=== PATIENT | male | born 1965 | race Caucasian/White ===

== ENCOUNTER → 2018-08-16 | Outpatient (CLI) | payer OTHER | END | disposition home or self-care (01) | LOC: RADCTMAIN 07:38 | PROVIDERS: ATTEND Surgery | DX: I74.3 Embolism and thrombosis of arteries of the lower extremities (principal) | CPT/HCPCS: 82565; 84520 ==

== ENCOUNTER → 2018-09-03 | Outpatient (CLI) | payer OTHER ==
--- NOTE | 2018-09-03 19:02 | CT ---
EXAMINATION TYPE: CT angio abdomen pelvis DATE OF EXAM: 09/03/2018 COMPARISON: NONE HISTORY: 53-year-old male low back and leg pain. TECHNIQUE: Contiguous axial scanning of the abdomen and pelvis following administration of 100 ml Iso chalino-370 IV contrast. Coronal/sagittal MIP reconstructions performed. 3-D reconstructions generated o n a dedicated workstation. CT DLP: 1290 mGycm Automated exposure control for dose reduction was used. FINDINGS: Heart normal size without pericardial effusion. Lung bases clear without pleural effusion. Possible underlying fatty infiltration of the liver. No biliary ductal dilatation. There is mixing ar tifact within the portal venous system limiting its assessment. Gallbladder, adrenal glands, kidneys, spleen, and pancreas appear within normal limits. No dilated small bowel, free fluid, or free air. Small fatty umbilical hernia. No mesenteric or retroperitoneal lymphadenopathy. No significant stool burden. Mild sigmoid colonic diverticulosis. No pericolonic inflammatory change. Prominent distention of the urinary bladder. No abnormal fluid collection in the pelvis or pelvic lym phadenopathy. Retroaortic left renal vein. There is occlusion of the aorta just below the level of the renal arteries. Fusiform ectasia infrarenal abdominal aorta measuring up to 2.8 cm. 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 The vessels become hypoplastic at the common i liac bifurcation but then reconstitute at the level of large inferior epigastric collateral supply. There is moderate to severe focal atherosclerotic narrowing of the distal right WHITE MIXING OPERATOR prior to its bifu rcation. Bones: No osseous destructive process. IMPRESSION: 1. AORTOILIAC OCCLUSIVE DISEASE (LERICHE SYNDROME?). CORRELATE TO ETIOLOGY. ABDOMINAL AORTIC OCCLU NKECHI OCCURS JUST BELOW THE LEVEL OF THE RENAL ARTERY TAKEOFF AND THERE IS RECONSTITUTION DISTALLY VIA INFERIOR EPIGASTRIC ARTERY COLLATERALS. THE OCCLUDED ILIAC VESSELS BEYOND THE COMMON ILIAC BIFURCATI ONS ARE DIMINUTIVE/HYPOPLASTIC, POSSIBLY FROM A PRIOR INFLAMMATORY INSULT OR CONGENITAL BASIS. 2. 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 3. MODERATE TO SEVERE FOCAL ATHEROSCLEROTIC STENOSIS OF THE RECONSTITUTED DISTAL RIGHT WHITE MIXING OPERATOR PRIOR TO I TS BIFURCATION. 4. MILD PROXIMAL SIGMOID DIVERTICULOSIS.
== END | disposition home or self-care (01) ==
LOC: RADCTMAIN 12:06
PROVIDERS: ATTEND Surgery
DX: I74.09 Other arterial embolism and thrombosis of abdominal aorta (principal); I74.5 Embolism and thrombosis of iliac artery; I72.3 Aneurysm of iliac artery; I77.811 Abdominal aortic ectasia; I70.202 Unspecified atherosclerosis of native arteries of extremities, left leg; K57.30 Diverticulosis of large intestine without perforation or abscess without bleeding
CPT/HCPCS: 74174; Q9967

== ENCOUNTER → 2018-09-03 | Outpatient (CLI) | payer OTHER ==
[2018-09-03 08:51] VITALS: RESP 16
[2018-09-03] MEDS: SODIUM CHLORIDE 0.45% 1,000 ML IV SCH ×2 (08:53→13:04)
[2018-09-03 13:04] VITALS: BP 175/80; PULSE 75; TEMP 97.7
== END ==
LOC: PROCWHC3 08:24
PROVIDERS: ATTEND Surgery
DX: R94.4 Abnormal results of kidney function studies (principal)
CPT/HCPCS: 36415; 82565; 84520; 96360; 96361

== ENCOUNTER → 2018-09-10 | Outpatient (CLI) | payer OTHER ==
[~2018-09-10] MED LIST: DOBUTamine DRIP for NUC MED 500 MG in DEXTROSE/WATER 1 250ML.BAG IV ONE
--- NOTE | 2018-09-10 16:50 | P.STRESS ---
- Stress Test Note Stress Test Results/Findings: Exam Performed: dobutamine stress echo with con Exam Date: 09/10/18 Reason for Exam: CHEST PAIN Height: 5 ft 8 in Weight: 106.594 kg Protocol: DOBUTAMINE STRESS ECHO WITH CONTRAST Stage: 2 Duration of Exercise: 8:43 Resting Heart Rate: 61 Resting Blood Pressure: 130/67 Maximum Achieved Heart Rate: 143 Maximum Achieved Blood Pressure: 154/42 85% PMHR: 140 100% PMHR: 165 METS: N/A Technologist Comment: Stress Test Results/Findings: Baseline heart rate 61 beats a minute Baseline that pressure 130/67 mmHg Baseline ECG showed normal sinus rhythm with normal cardiac intervals Patient received dobutamine infusion per protocol No ECG evidence of ischemia Intermittent PVCs noted no nonsustained ventricular tachycardia PVCs a right bundle branch block like morphology Baseline 2-D echo images are suboptimal in the foot Definity contrast was used line there was a stepwise and augmentation of overall LV contractility without development of any wall motion abnormalities @Recovery regional global LV systolic function within normal Impression No ECG or echocardiographic evidence for ischemia Left-sided PVCs noted with dobutamine infusion
== END ==
LOC: RADNMMAIN 09:38
PROVIDERS: ATTEND Family Medicine
DX: R07.9 Chest pain, unspecified (principal); I49.3 Ventricular premature depolarization
CPT/HCPCS: C8930; J1250; Q9950; 93351

== ENCOUNTER → 2018-10-01 | Outpatient (CLI) | payer OTHER ==
[2018-10-01 10:25] LABS: Appearance,Urine Clear (Clear); Bilirubin,Urine Negative (Negative); Blood,Urine Negative (Negative); Color,Urine Yellow; Glucose,Urine (UA) Negative (Negative); Ketones,Urine Negative (Negative); Leukocyte Esterase,Urine Negative (Negative); Nitrite,Urine Negative (Negative); Protein,Urine Negative (Negative); Urobilinogen,Urine <2.0 mg/dL (<2.0)
[2018-10-01 10:35] LABS: Basophils # (A) 0.1 k/uL (0-0.2); Basophils % (A) 1 %; Eosinophils # (A) 0.3 k/uL (0-0.7); Eosinophils % (A) 4 %; HCT 44.1 % (39.0-53.0); HGB 14.3 gm/dL (13.0-17.5); Lymphocytes # (A) 1.7 k/uL (1.0-4.8); Lymphocytes % (A) 21 %; MCH 28.5 pg (25.0-35.0); MCHC 32.4 g/dL (31.0-37.0); Mean Platelet Volume 7.6; Monocytes # (A) 0.6 k/uL (0-1.0); Monocytes % (A) 8 %; Neutrophils # (A) 5.1 k/uL (1.3-7.7); Neutrophils % (A) 65 %; Platelet Count 299 k/uL (150-450); RBC 5.01 m/uL (4.30-5.90); RDW 14.2 % (11.5-15.5); WBC 7.9 k/uL (3.8-10.6)
[2018-10-01 10:40] LABS: Potassium 4.9 mmol/L (3.5-5.1)
== END | disposition home or self-care (01) ==
LOC: LABPAT 09:22
PROVIDERS: ATTEND Surgery
DX: Z01.818 Encounter for other preprocedural examination (principal); Z01.812 Encounter for preprocedural laboratory examination; I74.10 Embolism and thrombosis of unspecified parts of aorta
CPT/HCPCS: 36415; 80051; 81003; 82565; 84520; 85025; 93005

== ENCOUNTER 2018-10-07 09:41 | Inpatient (IN) | payer OTHER ==
[~2018-10-07 09:41] MED LIST changes: +CLINDAMYCIN 900 MG in DEXTROSE 5% IN WATER 50 ML IVPB ONE; +DEXAMETHASONE SOD PHOSPHATE 10 MG/ML 1 ML VIAL IV ONE; -DOBUTamine DRIP for NUC MED 500 MG in DEXTROSE/WATER 1 250ML.BAG IV ONE; +LIDOCAINE 1% 20 ML VIAL (10MG/ML) FOR IV START INTRADERMA PRN; +MIDAZOLAM 2 MG/2 ML VIAL IV PRN; +fentaNYL (PF) 50 MCG/ML 2 ML AMP IV PRN
[2018-10-07] MEDS: LACTATED RINGERS 1,000 ML IV SCH ×3 (10:16→21:24)
[2018-10-07] MEDS ORDERED: ONDANSETRON 4 MG/2 ML VIAL IVP ONE (10:35)
[2018-10-07] MEDS ORDERED: fentaNYL (PF) 50 MCG/ML 2 ML AMP IVP ONE (10:39)
[2018-10-07 10:41] LABS: INR 0.9 (<1.2); Partial Thromboplastin Time 23.4 sec (22.0-30.0)
[2018-10-07] MEDS ORDERED: ROPIVACAINE 250 MG, fentaNYL (PF) 625 MCG in SODIUM CHLORIDE 0.9% 188 ML EPIDURAL PRN (10:54)
[2018-10-07] MEDS ORDERED: NALOXONE 0.4 MG/ML 1 ML VIAL IV PRN (10:54)
[2018-10-07] MEDS ORDERED: GLYCOPYRROLATE 0.2 MG/ML 2 ML VIAL ONE (13:29)
[2018-10-07] MEDS ORDERED: HEPARIN SODIUM,PORCINE 10,000 UNIT/ML 1 ML VIAL ONE (13:29)
[2018-10-07] MEDS ORDERED: PROPOFOL 10 MG/ML 20 ML VIAL IV ONE (13:29)
[2018-10-07] MEDS ORDERED: ALBUMIN HUMAN 5% (12.5gm) 250 ML BOTTLE IVPB ONE (13:29)
[2018-10-07] MEDS ORDERED: fentaNYL (PF) 50 MCG/ML 2 ML AMP ONE (13:29)
[2018-10-07] MEDS ORDERED: SUCCINYLCHOLINE CHLORIDE 100 MG/5 ML SYR IV ONE (13:29)
[2018-10-07] MEDS ORDERED: NEOSTIGMINE 1 MG/ML 10 ML VIAL ONE (13:29)
[2018-10-07] MEDS ORDERED: HEPARIN SODIUM,PORCINE 5,000 UNIT/ML 1 ML VIAL ONE (13:29)
[2018-10-07] MEDS ORDERED: MIDAZOLAM 2 MG/2 ML VIAL ONE (13:29)
[2018-10-07] MEDS ORDERED: PHENYLEPHRINE-0.9% NACL SYG 1 MG/10 ML SYRINGE ONE (13:29)
[2018-10-07] MEDS ORDERED: VECURONIUM 10 MG VIAL IV ONE (13:29)
[2018-10-07] MEDS ORDERED: LACTATED RINGERS 1,000 ML BAG IV ONE (13:29)
[2018-10-07] MEDS ORDERED: PROTAMINE SULFATE 10 MG/ML 5 ML VIAL IV ONE (13:29)
[2018-10-07] MEDS ORDERED: GELATIN SPONGE,ABSORB (LARGE) 1 EACH SPONGE TOPICAL ONE (14:15)
[2018-10-07] MEDS ORDERED: THROMBIN (BOVINE) 5,000 UNIT VIAL TOPICAL ONE ×2 (14:15)
[2018-10-07] MEDS ORDERED: LACTATED RINGERS 1,000 ML IV ONE ×5 (14:45→15:06)
[2018-10-07] MEDS ORDERED: SODIUM CHLORIDE 0.9% 50 ML with CLINDAMYCIN 900 MG IV ONE ×2 (16:49)
--- NOTE | 2018-10-07 18:09 | P.OP ---
Date of Procedure: 10/07/18 Preoperative Diagnosis: Aortoiliac occlusive disease with resulting severely lifestyle limiting bilateral lower extremity claudication Postoperative Diagnosis: Same Procedure(s) Performed: Aortobifemoral bypass graft utilizing 16 mm x 8 mm bifurcated PTFE graft Aortic thromboendarterectomy Right common femoral thromboendarterectomy Implants: 16 mm x 8 mm bifurcated PTFE graft. Anesthesia: GETA Surgeon: Dhruv Guajardo Continuous Mining Operator #1: Tulio Multani Estimated Blood Loss (ml): 1,500 IV fluids (ml): 1,800 Urine output (ml): 300 Pathology: other (Atherosclerotic aortic plaque and debris) Condition: stable Disposition: ICU Indications for Procedure: Patient is a 53-year-old male who presented to the office complaining of severe lifestyle limiting lower extremity claudication. Physical examination revealed absent femoral pulses bilaterally. Arterial Doppler was performed which demonstrated findings consistent with aortoiliac occlusive disease. The patient did undergo a CT angiogram of the abdomen, pelvis and lower extremities and this demonstrated total occlusion of the lower aortic segment as well as both iliac arteries. Due to the patient's relatively young age was felt the patient would be well served by a aortobifemoral bypass grafting. Surgery options of axillobifemoral bypass grafting was also discussed. The patient was felt most appropriate for aortobifemoral bypass grafting. The patient wished to proceed. Operative Findings: Totally occluded renal aorta and both iliac arteries. Description of Procedure: Patient was brought the upper and placed in the supine position and administered general endotracheal anesthesia delivered by the primary anesthesiology. The patient had a epidural catheter placed in the preoperative phase. The patient received intravenously administered prophylactic antibiotics in the perioperative phase. Patient's abdomen bilateral inguinal and anterior thigh areas were sterilely prepped and draped in usual manner. A skin incision was made at the xiphoid level carried down to the level of pubis. Hemostasis was achieved using electrocautery. A generous layer of fatty tissue was transected. The fascia was identified and incised. Entry was then gained into the peritoneal cavity. A few adhesions of the omentum to the anterior abdominal wall were encountered and these were taken down. The small and large bowel were run in their entirety and no visual or palpable abnormality was identified. A nasogastric tube was placed by anesthesia and its position confirmed to be well within the stomach. Utilizing a Bookwalter retractor system the small and large bowel were packed from harm's way. Electrocautery was utilized to incise the posterior peritoneum overlying the distal aorta. The aorta itself was nonpulsatile. Dissection was then carried anteriorly along the aorta to a level just below the left renal artery where a pulse in the artery was identified. The artery was dissected free of investing tissues. Attention was then turned to the bilateral inguinal areas. On the right a skin incision was made along the inguinal crease carried down through the subcu change tissues. Hemostasis was achieved using electrocautery. Dissection was carried down the level of the femoral sheath which was incised. The common femoral artery as well as the origins of both profundus and superficial femoral arteries were identified and encircled Vesseloops. A similar procedures performed on the contralateral side. Both groin wounds were then packed with antibiotic-soaked gauze. Attention was turned to the aorta. The patient was systemically heparinized and ACT is were drawn and heparin was adjusted based on ACT readings. A 16 mm x 8 mm bifurcated PTFE graft was selected. The aorta was crossclamped and arteriotomy in the aorta was made. Amorphous plaque material was removed from the aorta which resulted in pulsatile flow to this level of the aorta. The aorta was then clamped. The PTFE graft was spatulated match arteriotomy and end-to-side anastomosis was created between the graft and the artery utilizing 3-0 Prolene suture. Once th is was performed in running fashion the graft was clamped and the anastomotic line was tested and this was found to be adequate. Each limb of the graft was then tunneled in the retroperitoneum to respective groin areas. On the left the Vesseloops were drawn closed surrounding the femoral vessels. Longitudinal arteriotomy was made in the common femoral extended down to the level of the bifurcation of the femoral into the superficial and deep femoral segments. Backbleeding from both the superficial femoral and profundus was identified and both arteries were flushed with heparinized saline solution. The graft was cut the appropriate length and spatulated to match arteriotomy and end-to-side anastomosis was created utilizing 5-0 Prolene suture placed in running fashion. Just prior to completion of the anastomotic line the limb was flushed and backbleeding was allowed to occur and no thrombus was retrieved in either case. The anastomotic line was then completed flow restored through the graft into the profundus followed by rastafari of flow into the superficial femoral arteries. The anastomotic line was hemostatic. Excellent pulse in both the profundus and superficial femoral arteries was identified. On the right side a similar procedure was performed however the common femoral artery was occluded and a common femoral thromboendarterectomy was performed. Both groin wounds were inspected for hemostasis. This was judged be adequate. Both groin wounds were closed in multiple layers with 3-0 Vicryl suture. Dermis was closed with 4-0 Vicryl placed in running intradermal fashion. Provina was applied to both wounds Attention was returned to the abdominal aorta. The anastomotic line was intact without evidence of leak. Surgical no was placed about the anastomotic line to help assure hemostasis. The posterior peritoneum was reapproximated with 0 Vicryl suture. Small and large bowel were returned to the normal anatomic positions. The anterior abdominal wall was closed with a #1 looped PDS placed in running fashion. Skin edges were reapproximated with skin fahad. Proper dressings were applied Patient tolerated procedure well awoke without apparent complication was transferred to recovery area satisfactory and stable condition. At the completion of the procedure both feet were pink and appeared to be well- perfused.
[2018-10-07] MEDS ORDERED: fentaNYL (PF) 50 MCG/ML 2 ML AMP INTRATHECA ONE (18:58)
[2018-10-07 21:09] LABS: Basophils % (A) 0 %; Eosinophils # (A) 0.1 k/uL (0-0.7); Eosinophils % (A) 1 %; HCT 35.7 % (39.0-53.0); HGB 11.8 gm/dL (13.0-17.5); Lymphocytes # (A) 0.6 k/uL (1.0-4.8); Lymphocytes % (A) 3 %; MCH 29.3 pg (25.0-35.0); MCHC 33.1 g/dL (31.0-37.0); MCV 88.5 fL (80.0-100.0); Mean Platelet Volume 7.8; Monocytes # (A) 0.9 k/uL (0-1.0); Monocytes % (A) 5 %; Neutrophils # (A) 15.4 k/uL (1.3-7.7); Neutrophils % (A) 90 %; Platelet Count 184 k/uL (150-450); RBC 4.03 m/uL (4.30-5.90); RDW 14.5 % (11.5-15.5); WBC 17.2 k/uL (3.8-10.6)
[2018-10-07 21:13] LABS: Glucose,Whole Blood 146 mg/dL (75-99)
[2018-10-07] MEDS ORDERED: SODIUM CHLORIDE 0.9% 500 ML 500 ML IV ONE (22:27)
[2018-10-07] MEDS: PHENYLEPHRINE 40 MG in SODIUM CHLORIDE 0.9% 250 ML IV SCH (22:48)
[2018-10-08] MEDS: CLINDAMYCIN 900 MG in DEXTROSE 5% IN WATER 50 ML IVPB SCH ×6 (00:04→16:08)
[2018-10-08] MEDS: PHENYLEPHRINE 40 MG in SODIUM CHLORIDE 0.9% 250 ML IV SCH ×2 (01:59→13:18)
[2018-10-08] MEDS: LACTATED RINGERS 1,000 ML IV SCH ×4 (05:46→23:59)
[2018-10-08 06:13] LABS: Basophils % (A) 0 %; Eosinophils # (A) 0.1 k/uL (0-0.7); Eosinophils % (A) 0 %; HCT 32.4 % (39.0-53.0); HGB 10.7 gm/dL (13.0-17.5); Lymphocytes # (A) 0.9 k/uL (1.0-4.8); Lymphocytes % (A) 7 %; MCH 29.1 pg (25.0-35.0); MCHC 33.2 g/dL (31.0-37.0); MCV 87.6 fL (80.0-100.0); Mean Platelet Volume 7.8; Monocytes % (A) 7 %; Neutrophils # (A) 10.9 k/uL (1.3-7.7); Neutrophils % (A) 84 %; Platelet Count 155 k/uL (150-450); RDW 14.7 % (11.5-15.5)
[2018-10-08 06:18] LABS: Magnesium 1.6 mg/dL (1.6-2.3); Phosphorus 3.4 mg/dL (2.5-4.5)
--- NOTE | 2018-10-08 08:10 | P.CNPUL ---
History of Present Illness Consult date: 10/08/18 Requesting physician: Dhruv Guajardo Reason for consult: other Chief complaint: Aortoiliac occlusive disease with severe claudication History of present illness: This is a 53-year-old white male patient, past medical history of nicotine dependence, patient carries 22-[id number]-doco smoking history, hypertension, hyperlipidemia, peripheral vascular disease, chronic kidney disease stage unknown, chronic back pain, osteoarthritis, who was diagnosed with severe aortoiliac occlusive disease about a year ago after experiencing severe claudication in lower extremities. On 10/07/2018 patient underwent aortobifemoral bypass grafting by Dr. Sequeira. Patient is seen in the intensive care unit on postoperative day one, he is currently on 2 L of oxygen the pulse ox of 97%, afebrile, hemodynamically stable. In the postoperative period patient apparently did experience some hypotension, and did receive a fluid bolus and infusion of Neosynephrine. Currently on lactated Ringer's at a rate of 150, epidural infusion of ropivacaine and fentanyl at a rate of 12 ML per hour. Antibiotic coverage in the form of clindamycin. Denies any shortness of breath, and some scattered wheezing, not normally on any inhalers or breathing treatments, no home oxygen. No diagnosis of chronic lung condition. Patient is complaining of right-sided numbness in his right hand, and right lower extremity. Apparently in the postoperative period he was having loss of sensation in his right lower extremity, but the right-sided hand numbness is new this morning. Lower extremity with posttibial pulses only, nonpalpable pedal pulses. Review of Systems All systems: negative Constitutional: Denies chills, Denies fever Eyes: denies blurred vision, denies pain Ears, nose, mouth and throat: Denies headache, Denies sore throat Cardiovascular: Denies chest pain, Denies shortness of breath Respiratory: Denies cough Gastrointestinal: Denies abdominal pain, Denies diarrhea, Denies nausea, Denies vomiting Musculoskeletal: Denies myalgias Integumentary: Denies pruritus, Denies rash Neurological: Reports numbness, Denies weakness Psychiatric: Denies anxiety, Denies depression Endocrine: Denies fatigue, Denies weight change Past Medical History Past Medical History: Hypertension, Osteoarthritis (OA), Thyroid Disorder, Vascular Disorder Additional Past Medical History / Comment(s): "no blood flow to legs", arthritis in lower back, edema of lower legs, occ swelling in fingers History of Any Multi-Drug Resistant Organisms: None Reported Past Surgical History: No Surgical Hx Reported Past Anesthesia/Blood Transfusion Reactions: No Reported Reaction Smoking Status: Current some day smoker - Past Family History Sister(s) Family Medical History: Cancer Medications and Allergies Home Medications Medication Instructions Recorded Confirmed Type Aspirin [Adult Low Dose Aspirin EC] 81 mg PO DAILY 09/03/18 10/07/18 History Fenofibrate [Lofibra] 160 mg PO DAILY 09/03/18 10/07/18 History Ibuprofen [Motrin] 800 mg PO QID 09/03/18 10/07/18 History Lisinopril [Zestril] 20 mg PO DAILY 09/03/18 10/07/18 History amLODIPine [Norvasc] 10 mg PO DAILY 09/03/18 10/07/18 History Ergocalciferol (Vitamin D2) 50,000 unit PO TH 09/25/18 10/07/18 History [Vitamin D2] Omeprazole [PriLOSEC] 20 mg PO AC-BID 09/25/18 10/07/18 History Allergies Allergy/AdvReac Type Severity Reaction Status Date / Time Penicillins Allergy Swelling Verified 10/07/18 20:03 Physical Exam Vitals: Vital Signs Temp Pulse Pulse Resp BP BP BP 10/08/18 07:00 80 26 H 122/69 10/08/18 06:00 99 19 117/66 10/08/18 05:00 75 17 129/59 10/08/18 04:30 79 16 10/08/18 04:00 97.8 F 92 20 130/64 10/08/18 03:30 86 18 130/64 10/08/18 03:00 80 16 109/53 10/08/18 02:30 78 18 125/62 10/08/18 02:00 73 18 116/67 10/08/18 01:30 81 18 114/40 10/08/18 01:00 82 16 116/65 10/08/18 00:30 77 15 125/53 10/08/18 00:00 99.6 F 71 18 105/56 10/07/18 23:30 65 15 94/48 10/07/18 23:00 64 12 98/55 10/07/18 22:30 66 13 99/52 10/07/18 22:00 70 13 99/52 10/07/18 21:30 68 14 98/56 10/07/18 21:00 63 16 101/57 10/07/18 20:30 97.8 F 65 20 90/50 10/07/18 20:02 68 10 L 10/07/18 19:33 69 16 90/53 91/55 10/07/18 19:15 71 16 97/54 102/57 10/07/18 19:00 69 16 92/55 99/58 10/07/18 18:30 76 16 112/62 119/62 10/07/18 18:15 97.1 F L 74 20 94/50 106/58 10/07/18 16:45 69 16 117/57 108/64 10/07/18 10:53 76 17 97/55 89/53 10/07/18 10:10 98.7 F 70 18 146/70 Pulse Ox 10/08/18 07:00 97 10/08/18 06:00 99 10/08/18 05:00 95 10/08/18 04:30 10/08/18 04:00 98 10/08/18 03:30 10/08/18 03:00 10/08/18 02:30 10/08/18 02:00 98 10/08/18 01:30 10/08/18 01:00 99 10/08/18 00:30 10/08/18 00:00 99 10/07/18 23:30 10/07/18 23:00 98 10/07/18 22:30 10/07/18 22:00 98 10/07/18 21:30 99 10/07/18 21:00 99 10/07/18 20:30 98 10/07/18 20:02 10/07/18 19:33 96 10/07/18 19:15 97 10/07/18 19:00 96 10/07/18 18:30 96 10/07/18 18:15 96 10/07/18 16:45 97 10/07/18 10:53 98 10/07/18 10:10 98 Intake and Output 10/07/18 10/08/18 10/08/18 22:59 06:59 14:59 Intake Total 1556 1750 150 Output Total 1825 735 40 Balance -269 1015 110 Intake: IV 1256 500 Sodium Chloride 0.9% 500 500 ml 500 ml @ 999 mls/hr IV .Q31M ONE Rx#:[id number] Intake, IV Titration 300 1250 150 Amount Clindamycin 900 mg In 50 Dextrose 5% in Water 50 ml @ 50 mls/hr IVPB Q8HR [facility] Rx#:[id number] Lactated Ringers 1,000 ml 300 1200 150 @ 150 mls/hr IV .Q6H40M [facility] Rx#:[id number] Output: Gastric Drainage 200 Urine 325 535 40 Estimated Blood Loss 1500 Other: Weight 115.2 kg ABP, PAP, CO, CI - Last 8 Hours Arterial Blood Pressure 98/94 GENERAL EXAM: Alert, pleasant, 53-year-old white male, on 2 L of oxygen, resting in bed, mild to moderate amount of discomfort at his surgical incision site comfortable in no apparent distress. Epidural catheter is present in the lower thoracic spine, insertion site is clean dry and intact, covered with occlusive dressing, ropivacaine and fentanyl infusing at a rate of 12 ML per hour HEAD: Normocephalic/atraumatic. EYES: Normal reaction of pupils, equal size. Conjunctiva pink, sclera white. NOSE: Clear with pink turbinates. THROAT: No erythema or exudates. NECK: No masses, no JVD, no thyroid enlargement, no adenopathy. CHEST: No chest wall deformity. Symmetrical expansion. LUNGS: Equal air entry with diffuse wheezes CVS: Regular rate and rhythm, normal S1 and S2, no gallops, no murmurs, no rubs ABDOMEN: Soft, nontender. No hepatosplenomegaly, normal bowel sounds, no guarding or rigidity. Midabdominal and Bilateral groin incisions, left groin incision with wound VAC in place EXTREMITIES: No clubbing, no edema, no cyanosis, post tibial pulses palpable, no palpable pedal pulses and upper and lower extremities. MUSCULOSKELETAL: Muscle strength and tone normal. SPINE: No scoliosis or deformity SKIN: No rashes CENTRAL NERVOUS SYSTEM: Alert and oriented -3. Sensation loss, numbness in the right lower extremity, foot, leg, and right hand tone is normal in all 4 extremities. PSYCHIATRIC: Alert and oriented -3. Appropriate affect. Intact judgment and insight. Results - Laboratory Findings CBC and BMP: 10/08/18 05:36 PT/INR, D-dimer PT 10.0 sec (9.0-12.0) 10/07/18 10:15 INR 0.9 (<1.2) 10/07/18 10:15 Abnormal lab findings: Abnormal Labs 10/01/18 10/07/18 10/07/18 09:45 20:45 21:10 WBC 17.2 H RBC 4.03 L Hgb 11.8 L Hct 35.7 L Neutrophils # 15.4 H Lymphocytes # 0.6 L POC Glucose (mg/dL) 146 H Crossmatch See Detail 10/08/18 05:36 WBC 13.0 H RBC 3.70 L Hgb 10.7 L Hct 32.4 L Neutrophils # 10.9 H Lymphocytes # 0.9 L POC Glucose (mg/dL) Crossmatch - Diagnostic Findings Chest x-ray: report reviewed Assessment and Plan Plan: Assessment: #1. Peripheral vascular disease, aortoiliac occlusive disease with severe claudication, status post aortobifemoral bypass grafting, postop day 1 #2. Postoperative hypotension, an expected outcome of aortobyfemoral bypass #3. Sensory loss, numbness in the right lower extremity, and right arm #4. Hypertension #5. Hyperlipidemia #6. Chronic kidney disease, stage unknown #7. Back pain #8. Osteoarthritis #9. Nicotine dependence, currently in remission, patient quit smoking 3 weeks ago, is [id number] smoking history Plan: Provide incentive spirometer, encourage breathing and coughing, we'll start breathing treatments. We'll notify the vascular surgery and anesthesiology about the numbness in the right hand and right lower extremity. Hemodynamically patient is stable, off vasopressor support, no fever or chills. No complains of shortness of breath, no chest pain. Maintain pain control. DVT prophylaxis per vascular surgery. Continue to follow. I performed a history & physical examination of the patient and discussed their management with my nurse practitioner, Shae Christiansen. I reviewed the nurse practitioner's note and agree with the documented findings and plan of care. Lung sounds are positive for diffuse wheezes throughout the lung hickman. The findings and the impression was discussed with the patient. I attest to the documentation by the nurse practitioner. Time with Patient: Greater than 30
[2018-10-08] MEDS ORDERED: ROPIVACAINE 250 MG, HYDROMORPHONE (PF) 5 MG in SODIUM CHLORIDE 0.9% 200 ML EPIDURAL PRN (10:44)
[2018-10-08] MEDS ORDERED: NALOXONE 0.4 MG/ML 1 ML VIAL IV PRN (10:44)
--- NOTE | 2018-10-08 10:57 | P.PN ---
Progress Note - Text Progress Note Date: 10/08/18 Post op day 1, cath day 2 from aorto-bi fem. having numbness and pain in the right leg, no pain in the left leg or abdomen. He says the right leg is numb and causing pain. He has PT pulses on the right, and PT/DP on the left. epidural running at 12cc hour, solution was changed to dilaudid today and will be hung soon. we will keep an eye on the progress. He does not have any changes in mental status, no weakness, or bowel incontinence. site is clean and dry.
[2018-10-08] MEDS: MAGNESIUM SULFATE-D5W PMX 1 GM in DEXTROSE/WATER 1 100ML.BAG IVPB SCH ×2 (11:00→12:27)
[2018-10-08 11:15] LABS: Calcium 8.3 mg/dL (8.4-10.2); Potassium 4.7 mmol/L (3.5-5.1)
[2018-10-08] MEDS: LISINOPRIL 20 MG TAB PO SCH (12:28)
[2018-10-08] MEDS: ASPIRIN 81 MG PO SCH (12:28)
[2018-10-08] MEDS: FENOFIBRATE 160 MG TAB PO SCH (12:28)
[2018-10-08] MEDS: amLODIPine 10 MG TAB PO SCH (12:28)
[2018-10-08] MEDS: PANTOPRAZOLE 40 MG TABLET PO SCH ×2 (12:28→18:08)
[2018-10-08] MEDS: IPRATROPIUM-ALBUTEROL 3 ML NEB INHALATION SCH ×3 (13:18→20:04)
[2018-10-08 17:28] LABS: Glucose,Whole Blood 107 mg/dL (75-99)
--- NOTE | 2018-10-08 19:48 | PN ---
PROGRESS NOTE DATE OF SERVICE: 10/08/2018 CHIEF COMPLAINT: Postoperative aortofemoral bypass. HISTORY OF PRESENT ILLNESS: This gentleman has been having some discomfort in the right calf. He has had no abdominal pain, nausea, vomiting, chest pain, etc. PHYSICAL EXAMINATION: Chest is clear. Cardiac exam is normal. Extremities seem to be well perfused. IMPRESSION: Status post aortofemoral bypass. PLAN: Continue to follow. MMODL / IJN: [id number] /
--- NOTE | 2018-10-08 22:56 | CONS ---
CONSULTATION CHIEF COMPLAINT: Aortic occlusive disease. HISTORY OF PRESENT ILLNESS: This gentleman was brought in for an elective aortofemoral bypass. He has profound ischemia in the lower extremities with claudication. REVIEW OF SYSTEMS: He has had no neurologic problems, shortness of breath, chest pain, orthopnea, PND, abdominal pain, nausea, vomiting, diarrhea, melena, hematochezia, renal failure, etc. Past medical history, family history, and personal and social histories can all be found in detail in his admitting summary. PHYSICAL EXAMINATION: Blood pressure is 142/85 with a pulse of 80, respirations of 35. He is afebrile. In general he appeared to be in no acute distress. Skin color is normal. Skin is warm and dry. Head, ears, eyes, nose, mouth and throat are normal. Neck veins are not distended. Carotids are normal. Chest is clear. Cardiac exam demonstrates sinus rhythm and no murmurs or extra sounds. The abdomen is slightly distended, with no masses. Bowel sounds are absent. Extremities are unremarkable, but he is experiencing quite a bit of pain in the lower leg, but perfusion seems to be adequate and symmetrical bilaterally. Neurologically he is intact. IMPRESSION: 1. Improved vascular occlusive disease secondary to aortic occlusive disease. 2. Atherosclerotic cardiovascular disease. 3. Chronic obstructive pulmonary disease. RECOMMENDATIONS: None at this time. Continue to follow with Vascular Surgery. MMODL / IJN: [id number] /
[2018-10-08] MEDS ORDERED: SODIUM CHLORIDE 0.9% 1,000 ML IV ONE (23:56)
[2018-10-08] MEDS ORDERED: HYDROmorphone 1 MG/ML 1 ML SYRINGE IVP PRN (23:58)
[2018-10-09] MEDS ORDERED: FUROSEMIDE 10 MG/ML 2 ML VIAL IV ONE (01:53)
[2018-10-09] MEDS: PHENYLEPHRINE 40 MG in SODIUM CHLORIDE 0.9% 250 ML IV SCH ×2 (02:03→16:28)
[2018-10-09] MEDS: LACTATED RINGERS 1,000 ML IV SCH ×2 (05:17→09:32)
[2018-10-09 05:26] LABS: Basophils % (A) 0 %; Eosinophils # (A) 0.1 k/uL (0-0.7); Eosinophils % (A) 1 %; HCT 30.4 % (39.0-53.0); HGB 10.1 gm/dL (13.0-17.5); Lymphocytes % (A) 7 %; MCH 29.8 pg (25.0-35.0); MCHC 33.1 g/dL (31.0-37.0); Mean Platelet Volume 7.9; Monocytes # (A) 0.9 k/uL (0-1.0); Monocytes % (A) 6 %; Neutrophils # (A) 11.8 k/uL (1.3-7.7); Neutrophils % (A) 84 %; Platelet Count 150 k/uL (150-450); RBC 3.38 m/uL (4.30-5.90); RDW 14.6 % (11.5-15.5)
[2018-10-09 05:38] LABS: Calcium 8.1 mg/dL (8.4-10.2); Potassium 5.2 mmol/L (3.5-5.1)
[2018-10-09] MEDS: IPRATROPIUM-ALBUTEROL 3 ML NEB INHALATION SCH ×4 (07:36→19:44)
--- NOTE | 2018-10-09 07:40 | XR ---
EXAMINATION TYPE: XR chest 1V portable DATE OF EXAM: 10/09/2018 COMPARISON: NONE HISTORY: Shortness of breath and wheezing TECHNIQUE: Single frontal view of the chest is obtained. FINDINGS: Gastric tube is present, distal tip not included on the exam but tube is coursing toward t he left upper quadrant in appropriate position. No pneumothorax or pleural effusion. Subsegmental ate lectatic changes suspected at the lung bases. Interstitium may be increased. Heart may be enlarged al though patient is rotated. The aorta is dense. There are overlying cardiac leads. IMPRESSION: Rotated expiratory exam. Subsegmental basilar atelectasis. Question some prominence of i nterstitium, follow-up PA and lateral chest x-ray suggested when patient is stable.
--- NOTE | 2018-10-09 07:43 | P.PN ---
Progress Note - Text Progress Note Date: 10/09/18 Anesthesia Epidural Rounds Post op day 2, s/p aorto bi-fem catheter day 3 evaluated at the bedside patient reports pain improved from yesterday, but limited motility in the right leg/foot compared with the left site of epidural looks clean dry and intact ropiviciane/dilaudid solution at a rate of 10, VAS 5 will plan on removing epidural in the AM
--- NOTE | 2018-10-09 08:03 | P.PN ---
Subjective Progress Note Date: 10/09/18 Principal diagnosis: Peripheral vascular disease, aortoiliac occlusive disease with severe claudication, status post aortobifemoral bypass grafting, postop day 2 This is a 53-year-old white male patient, past medical history of nicotine dependence, patient carries [id number] smoking history, hypertension, hyperlipidemia, peripheral vascular disease, chronic kidney disease stage unknown, chronic back pain, osteoarthritis, who was diagnosed with severe aortoiliac occlusive disease about a year ago after experiencing severe claudication in lower extremities. On 10/07/2018 patient underwent aortobifemoral bypass grafting by Dr. Sequeira. Patient is seen in the intensive care unit on postoperative day one, he is currently on 2 L of oxygen the pulse ox of 97%, afebrile, hemodynamically stable. In the postoperative period patient apparently did experience some hypotension, and did receive a fluid bolus and infusion of Neosynephrine. Currently on lactated Ringer's at a rate of 150, epidural infusion of ropivacaine and fentanyl at a rate of 12 ML per hour. Antibiotic coverage in the form of clindamycin. Denies any shortness of breath, and some scattered wheezing, not normally on any inhalers or breathing treatments, no home oxygen. No diagnosis of chronic lung condition. Patient is complaining of right-sided numbness in his right hand, and right lower extremity. Apparently in the postoperative period he was having loss of sensation in his right lower extremity, but the right-sided hand numbness is new this morning. Lower extremity with posttibial pulses only, nonpalpable pedal pulses. On 10/09/2018 patient seen in follow-up in intensive care unit, he is awake and alert, oriented 3, 10 L of oxygen per high flow nasal cannula, hemodynamically stable, afebrile, lung sounds positive for coarse rhonchi, and scattered wheezes, patient is working on his incentive spirometer, achieving 1250 on it today. Patient productive cough, patient is on nebulized bronchodilators. Today's postop day 2 status post aortobifemoral bypass grafting. Today's chest x-ray has been reviewed, showing subsegmental basilar atelectasis, and possible prominence of interstitium. Patient remains nothing by mouth except for ice chips, NG tube is in place, there has been 750 mL of gastric output in the last 24 hours. Webster catheter is in place, patient nonoliguric. Today's labs have been reviewed. Maintenance IV fluids are LR at 150 ML per hour, patient remains on epidural, still complaining of some numbness and burning in his right lower extremity, Doppler right pedal pulses, palpable posttibial, palpable left pedal and posttibial. Objective - Vital Signs Vital signs: Vital Signs Temp 99.4 F 10/09/18 04:00 Pulse 94 10/09/18 07:51 Resp 18 10/09/18 07:01 BP 105/65 10/09/18 07:01 Pulse Ox 94 L 10/09/18 07:01 Intake & Output 10/08/18 10/09/18 10/09/18 18:59 06:59 18:59 Intake Total 2338 2810 150 Output Total 1570 870 60 Balance 768 1940 90 Weight 115.2 kg 112.9 kg Intake: IV 2650 150 LR 450 Lactated Ringers 1,000 ml 1200 150 @ 150 mls/hr IV .Q6H40M [facility] Rx#:[id number] Sodium Chloride 0.9% 500 1000 ml 500 ml @ 999 mls/hr IV .Q31M [facility] Rx#:[id number] Intake, IV Titration 2218 160 Amount Clindamycin 900 mg In 100 Dextrose 5% in Water 50 ml @ 50 mls/hr IVPB Q8HR [facility] Rx#:[id number] Lactated Ringers 1,000 ml 1800 150 @ 150 mls/hr IV .Q6H40M [facility] Rx#:[id number] Magnesium Sulfate-D5w Pmx 200 1 gm In Dextrose/Water 1 100ml.bag @ 100 mls/hr IVPB Q1H [facility] Rx#: [id number] Ropivacaine 250 mg 70 10 Hydromorphone (Pf) 5 mg In Sodium Chloride 0.9% 200 ml @ Per Protocol EPIDURAL .Q0M [facility] Rx#: [id number] Ropivacaine 250 mg 48 fentaNYL (PF) 625 mcg In Sodium Chloride 0.9% 188 ml @ Per Protocol EPIDURAL .Q0M [facility] Rx#: [id number] Oral 120 Output: Gastric Drainage 450 300 Drainage 0 0 Left Groin 0 0 Urine 1120 570 60 Other: Voiding Method Indwelling Catheter Indwelling Catheter ABP, PAP, CO, CI - Last Documented Arterial Blood Pressure 98/94 - Exam GENERAL EXAM: Alert, pleasant, 53-year-old white male, on 2 L of oxygen, resting in bed, mild to moderate amount of discomfort at his surgical incision site comfortable in no apparent distress. Epidural catheter is present in the lower thoracic spine, insertion site is clean dry and intact, covered with occlusive dressing, ropivacaine and fentanyl infusing at a rate of 12 ML per hour HEAD: Normocephalic/atraumatic. EYES: Normal reaction of pupils, equal size. Conjunctiva pink, sclera white. NOSE: Clear with pink turbinates. THROAT: No erythema or exudates. NECK: No masses, no JVD, no thyroid enlargement, no adenopathy. CHEST: No chest wall deformity. Symmetrical expansion. LUNGS: Equal air entry with diffuse wheezes CVS: Regular rate and rhythm, normal S1 and S2, no gallops, no murmurs, no rubs ABDOMEN: Soft, nontender. No hepatosplenomegaly, normal bowel sounds, no guarding or rigidity. Midabdominal and Bilateral groin incisions, left groin incision with wound VAC in place EXTREMITIES: No clubbing, no edema, no cyanosis, post tibial pulses palpable, no palpable pedal pulses and upper and lower extremities. MUSCULOSKELETAL: Muscle strength and tone normal. SPINE: No scoliosis or deformity SKIN: No rashes CENTRAL NERVOUS SYSTEM: Alert and oriented -3. Sensation loss, numbness in the right lower extremity, foot, leg, and right hand tone is normal in all 4 extremities. PSYCHIATRIC: Alert and oriented -3. Appropriate affect. Intact judgment and insight. - Labs CBC & Chem 7: 10/09/18 04:58 10/09/18 04:58 Labs: Abnormal Lab Results - Last 24 Hours (Table) 10/08/18 10/08/18 10/09/18 Range/Units 05:36 17:24 04:58 WBC 14.0 H (3.8-10.6) k/uL RBC 3.38 L (4.30-5.90) m/uL Hgb 10.1 L (13.0-17.5) gm/dL Hct 30.4 L (39.0-53.0) % Neutrophils # 11.8 H (1.3-7.7) k/uL Sodium (137-145) mmol/L Potassium (3.5-5.1) mmol/L Chloride 110 H (98-107) mmol/L BUN 30 H (9-20) mg/dL Creatinine 1.97 H (0.66-1.25) mg/dL Glucose 113 H (74-99) mg/dL POC Glucose (mg/dL) 107 H (75-99) mg/dL Calcium 8.3 L (8.4-10.2) mg/dL 10/09/18 Range/Units 04:58 WBC (3.8-10.6) k/uL RBC (4.30-5.90) m/uL Hgb (13.0-17.5) gm/dL Hct (39.0-53.0) % Neutrophils # (1.3-7.7) k/uL Sodium 136 L (137-145) mmol/L Potassium 5.2 H (3.5-5.1) mmol/L Chloride (98-107) mmol/L BUN 26 H (9-20) mg/dL Creatinine 1.86 H (0.66-1.25) mg/dL Glucose (74-99) mg/dL POC Glucose (mg/dL) (75-99) mg/dL Calcium 8.1 L (8.4-10.2) mg/dL Assessment and Plan Plan: Assessment: #1. Peripheral vascular disease, aortoiliac occlusive disease with severe claudication, status post aortobifemoral bypass grafting, postop day 2 #2. Postoperative hypotension, an expected outcome of aortobyfemoral bypass #3. Sensory loss, numbness in the right lower extremity, and right arm. Right hand numbness has resolved. Still complaining of some numbness and burning in the right lower extremity. #4. Hypertension #5. Hyperlipidemia #6. Chronic kidney disease, stage unknown #7. Back pain #8. Osteoarthritis #9. Nicotine dependence, currently in remission, patient quit smoking 3 weeks ago, is [id number]-[id number] smoking history Plan: Continue with nebulized bronchodilators, deep breathing and coughing, incentive spirometry use, today's chest x-ray has been reviewed, showing some prominence of interstitium, patient will be given a dose of IV Lasix. DVT prophylaxis per vascular surgery. Continue pain control, will follow. I performed a history & physical examination of the patient and discussed their management with my nurse practitioner, Shae Christiansen. I reviewed the nurse practitioner's note and agree with the documented findings and plan of care. Lung sounds are positive for diffuse wheezes throughout the lung hickman. The findings and the impression was discussed with the patient. I attest to the documentation by the nurse practitioner. Time with Patient: Less than 30
[2018-10-09] MEDS ORDERED: FUROSEMIDE 10 MG/ML 4 ML VIAL IV STA (08:37)
[2018-10-09] MEDS: FENOFIBRATE 160 MG TAB PO SCH (09:19)
[2018-10-09] MEDS: LISINOPRIL 20 MG TAB PO SCH (09:19)
[2018-10-09] MEDS: amLODIPine 10 MG TAB PO SCH (09:19)
[2018-10-09] MEDS: ASPIRIN 81 MG PO SCH (09:19)
[2018-10-09] MEDS: PANTOPRAZOLE 40 MG/10 ML VIAL IVP SCH ×2 (09:31→20:21)
[2018-10-09] MEDS: HYDROmorphone 1 MG/ML 1 ML SYRINGE IVP PRN ×4 (12:29→22:28)
[2018-10-09] MEDS: HEPARIN SODIUM,PORCINE 5,000 UNIT/ML 1 ML VIAL SQ SCH ×2 (12:36→16:35)
--- NOTE | 2018-10-09 14:20 | P.PN ---
Progress Note - Text Progress Note Date: 10/08/18 Patient seen and examined. Complaining of pain at right leg pain and numbness. States pain extending from the hip to the foot. No nausea, or vomiting. NGT intact, minimal output. Vitals are stable. Palpable PT pulses bilaterally, warm extremities. A/P: 1. s/p Aortobifemoral bypass 2. RLE parasthesia secondary to epidural - remove epidural tomorrow morning - increase activity.
--- NOTE | 2018-10-09 18:39 | PN ---
PROGRESS NOTE CHIEF COMPLAINT: Status post aortofemoral bypass. HISTORY OF PRESENT ILLNESS: This gentleman is awake and doing fairly well but still complaining of quite a bit of pain in the right lower leg, but it is slightly better. PHYSICAL EXAM: Vital signs are normal. Chest is clear. Cardiac exam is normal. Perfusion is excellent in both lower extremities. IMPRESSION: Status post aortofemoral bypass. PLAN: Continue to follow with surgery, the patient is improving. MMODL / IJN: [id number] /
[2018-10-10] MEDS: HYDROmorphone 1 MG/ML 1 ML SYRINGE IVP PRN ×12 (00:36→23:59)
[2018-10-10] MEDS: LACTATED RINGERS 1,000 ML IV SCH ×2 (00:37→15:54)
[2018-10-10] MEDS: HEPARIN SODIUM,PORCINE 5,000 UNIT/ML 1 ML VIAL SQ SCH ×4 (00:37→22:17)
[2018-10-10] MEDS: PHENYLEPHRINE 40 MG in SODIUM CHLORIDE 0.9% 250 ML IV SCH ×2 (00:38→10:47)
[2018-10-10] MEDS: PANTOPRAZOLE 40 MG TABLET PO SCH (04:28)
[2018-10-10 05:19] LABS: Basophils % (A) 0 %; Eosinophils # (A) 0.2 k/uL (0-0.7); Eosinophils % (A) 1 %; HCT 30.7 % (39.0-53.0); HGB 10.1 gm/dL (13.0-17.5); Lymphocytes # (A) 1.1 k/uL (1.0-4.8); Lymphocytes % (A) 7 %; MCH 29.2 pg (25.0-35.0); MCHC 32.9 g/dL (31.0-37.0); MCV 88.5 fL (80.0-100.0); Monocytes % (A) 6 %; Neutrophils # (A) 13.4 k/uL (1.3-7.7); Neutrophils % (A) 84 %; Platelet Count 181 k/uL (150-450); RBC 3.47 m/uL (4.30-5.90); RDW 14.6 % (11.5-15.5)
[2018-10-10 05:29] LABS: Albumin 3.4 g/dL (3.5-5.0); Calcium 8.7 mg/dL (8.4-10.2); Potassium 4.6 mmol/L (3.5-5.1); Total Bilirubin 0.8 mg/dL (0.2-1.3); Total Protein 5.9 g/dL (6.3-8.2)
[2018-10-10] MEDS: PANTOPRAZOLE 40 MG/10 ML VIAL IVP SCH ×2 (08:19→21:01)
--- NOTE | 2018-10-10 08:38 | XR ---
EXAMINATION TYPE: XR chest 1V portable DATE OF EXAM: 10/10/2018 COMPARISON: 10/09/2018 HISTORY: Shortness of breath TECHNIQUE: Single frontal view of the chest is obtained. FINDINGS: NG tube appears stable. There is bilateral consolidation and pleural thickening or tiny ef fusion. No pneumothorax. Heart size stable. Mildly prominent interstitium. Suspect underlying COPD. IMPRESSION: Bibasilar atelectasis versus infiltrate. Correlate for mild interstitial lung disease or venous congestion.
[2018-10-10] MEDS: IPRATROPIUM-ALBUTEROL 3 ML NEB INHALATION SCH ×5 (09:09→20:14)
--- NOTE | 2018-10-10 10:23 | PN ---
PROGRESS NOTE This is a patient who is postop day #3, status post aortobifem bypass grafting. The patient is currently resting comfortably here in the ICU. He is still requiring relatively high concentration of oxygen. He is getting 8 L high-flow. His lactated Ringer's IV is running at 75 mL an hour. He continues to complain of right leg burning. Dr. Multani is aware. Chest x-ray shows some very minimal fluid overload. All-in-all doing reasonably well. The patient did complain of some abdominal pain last night according to the nurse and also the right leg burning. He does have a history of hypertension, hyperlipidemia, and chronic kidney disease. He also suffers from chronic back pain. He has got a stable respiratory status and hemodynamic status at this time. Current vital signs are reviewed. Temperature is 98.2, heart rate 80, respiratory rate 13, blood pressure 113/66 mean 81 and saturations are 96% on 8 L high flow. Appears in no acute distress. HEENT: Examination is grossly unremarkable. Nasal O2 noted. Mucous membranes are moist. NECK: Supple. Full range of motion. No adenopathy, thyromegaly or neck vein distention. CARDIOVASCULAR: Examination reveals regular rhythm and rate. Heart rate about 80 beats per minute. S1, S2 normal. There is no S3, S4, or murmur. LUNGS: Reveal mostly clear breath sounds. No wheezes, rhonchi, or crackles. Breath sounds are equal bilaterally. ABDOMEN: Soft. Bowel sounds are heard. EXTREMITIES: Intact. No cyanosis, clubbing, or edema. Pulses are intact. SKIN: Without rash. NEUROLOGIC: Examination is brief but nonfocal. Microbiologic studies are negative or pending. White count 16, hemoglobin 10.1, hematocrit 30.7, platelet count normal. Sodium, potassium, chloride, CO2 all normal, anion gap normal. BUN and creatinine were 23 and 1.70, improved from 30 and 1.97 two days ago. AST 267, ALT 79, albumin 3.4. Chest x- ray is reviewed as mentioned above. Medications are reviewed. They all appear relatively appropriate. ASSESSMENT: 1. Postoperative day #3, status post aortobifemoral bypass in a patient with severe peripheral vascular disease and aortoiliac occlusive disease with severe claudication. 2. Postoperative hypotension, resolved. 3. Burning sensation right leg, chronic, of unclear etiology. 4. Benign essential hypertension. 5. Hyperlipidemia. 6. Chronic kidney disease. 7. Back pain. 8. Osteoarthritis. 9. Probable chronic obstructive pulmonary disease from previous heavy tobacco use. PLAN: The patient continues to progress. Respiratory status is improving. Chest x-ray looks much improved. His hemodynamic status is stable. He still complains of right leg burning and some abdominal discomfort. He needs to work on deep breathing, coughing, clearing of secretions and hourly use of incentive spirometer. Medications are reviewed. Everything is appropriate. Will continue to follow. MMODL / IJN: [id number] /
[2018-10-10] MEDS: IPRATROPIUM-ALBUTEROL 3 ML NEB INHALATION PRN (12:51)
[2018-10-10] MEDS: GABAPENTIN 300 MG CAP PO SCH ×3 (14:14→21:01)
[2018-10-10] MEDS: ASPIRIN 81 MG PO SCH (14:14)
[2018-10-10] MEDS: FENOFIBRATE 160 MG TAB PO SCH (14:15)
[2018-10-10] MEDS: amLODIPine 10 MG TAB PO SCH (14:15)
[2018-10-10] MEDS: LISINOPRIL 20 MG TAB PO SCH (15:49)
--- NOTE | 2018-10-10 16:21 | P.PN ---
Progress Note - Text Progress Note Date: 10/10/18 Patient is evaluated 3 days status post aortobifemoral bypass grafting. His biggest complaint is that of hyperesthesia of the right calf area. He indicates that his feet feel well. He was able to get to a chair yesterday. He has not passed any significant flatus or stool at all. Patient is awake alert oriented and in no significant distress. A nasogastric tube was significantly pulled back and this was repositioned after discussing with the patient the possibility of pulling the tube completely and the possible need for reinsertion at a later time should he become nauseated/experienced emesis. Patient wished to have the nasogastric tube readvanced. Abdomen is distended however soft. Few bowel sounds are noted. Legs are non- edematous. Toes are freely movable and nontender. Webster catheter is draining clear urine. Labs are removed and are stable. Plan Will start Neurontin 300 mg 3 times a day to see if this will help the hyperesthesia of the right lower extremity. We will remove Webster catheter. Trial clear liquids.
--- NOTE | 2018-10-10 19:59 | PN ---
PROGRESS NOTE CHIEF COMPLAINT: Status post aortofemoral bypass. HISTORY OF PRESENT ILLNESS: This gentleman is still experiencing quite a bit of discomfort in the right lower leg and particularly in the calf. This is probably related to his anesthesia. He also still has the NG tube in place and he is not passing flatus or stool. PHYSICAL EXAM: Vital signs are normal. Chest is clear. The cardiac exam is normal. The abdominal incision is dry. Extremities are normal except for some tenderness in the right calf, but it is more lateral than posterior. Homans is negative. IMPRESSION: 1. Status post aortofemoral bypass. 2. Pain in the right lateral lower leg. PLAN: Continue to follow. MMODL / IJN: [id number] /
[2018-10-11] MEDS: HYDROmorphone 1 MG/ML 1 ML SYRINGE IVP PRN ×3 (03:22→10:30)
[2018-10-11] MEDS: LACTATED RINGERS 1,000 ML IV SCH ×2 (06:23→20:44)
--- NOTE | 2018-10-11 07:29 | CDI ---
Documentation Clarification Form Date: 10/11/2018 7:23 AM From: Bobbi Cameron RN CCDS Admit Date: 10/07/2018 9:41:00 AM Patient Name: Ralph Agarwal Visit Number: [id number] Discharge Date: ATTENTION: The Clinical Documentation Specialists (CDI) and [facility] Coding Staff appreciate your assistance in clarifying documentation. Please respond to the clarification below the line at the bottom and electronically sign. The CDI & [facility] Coding staff will review the response and follow-up if needed. Please note: Queries are made part of the Legal Health Record. If you have any questions, please contact the author of this message via ITS. Dr. Denzel Tolbert The patient presented for an elective Aortobifemoral bypass and currently on 8L high flow oxygen. History/Risk Factors: 53 year old male with a medical history of nicotine dependence 30 year pack smoking history, HTN, Hyperlipidemia, PVD, CKD unknown stage; Severe Aortoiliac occlusive disease. Clinical Indicators: Your 10/10/2018 PN probable chronic obstructive pulmonary disease from previous heavy tobacco use Lungs: Reveal mostly clear breath sounds. No wheezes, rhonchi or crackles. Breath sounds are equal bilaterally. Lab findings: Carbon dioxide 26 CXR: 10/10/2018 Bibasilar atelectasis vs infiltrate Vital Signs: 113/66 98 98.0 18 93% High Flow Oxygen 8 L Other Clinical Indicators: Treatment: 8L High Flow Oxygen, Deep breathing, Coughing, clearing of secretions and hourly use of incentive spirometer. Albuterol tx; In your professional opinion, can you please clarify the diagnosis with treatment of High Flow Oxygen? * Acute Respiratory Failure due to * Acute Respiratory Insufficiency due to _COPD * Other, please specify * Unable to determine (Last Revision: August 2017) MTDD
[2018-10-11] MEDS: IPRATROPIUM-ALBUTEROL 3 ML NEB INHALATION SCH ×4 (07:56→20:08)
--- NOTE | 2018-10-11 08:56 | P.PN ---
Subjective Progress Note Date: 10/11/18 Principal diagnosis: Peripheral vascular disease, aortoiliac occlusive disease with severe claudication, status post aortobifemoral bypass grafting, postop day 2 This is a 53-year-old white male patient, past medical history of nicotine dependence, patient carries 40-xrmp-hjre smoking history, hypertension, hyperlipidemia, peripheral vascular disease, chronic kidney disease stage unknown, chronic back pain, osteoarthritis, who was diagnosed with severe aortoiliac occlusive disease about a year ago after experiencing severe claudication in lower extremities. On 10/07/2018 patient underwent aortobifemoral bypass grafting by Dr. Sequeira. Patient is seen in the intensive care unit on postoperative day one, he is currently on 2 L of oxygen the pulse ox of 97%, afebrile, hemodynamically stable. In the postoperative period patient apparently did experience some hypotension, and did receive a fluid bolus and infusion of Neosynephrine. Currently on lactated Ringer's at a rate of 150, epidural infusion of ropivacaine and fentanyl at a rate of 12 ML per hour. Antibiotic coverage in the form of clindamycin. Denies any shortness of breath, and some scattered wheezing, not normally on any inhalers or breathing treatments, no home oxygen. No diagnosis of chronic lung condition. Patient is complaining of right-sided numbness in his right hand, and right lower extremity. Apparently in the postoperative period he was having loss of sensation in his right lower extremity, but the right-sided hand numbness is new this morning. Lower extremity with posttibial pulses only, nonpalpable pedal pulses. On 10/09/2018 patient seen in follow-up in intensive care unit, he is awake and alert, oriented 3, 10 L of oxygen per high flow nasal cannula, hemodynamically stable, afebrile, lung sounds positive for coarse rhonchi, and scattered wheezes, patient is working on his incentive spirometer, achieving 1250 on it today. Patient productive cough, patient is on nebulized bronchodilators. Today's postop day 2 status post aortobifemoral bypass grafting. Today's chest x-ray has been reviewed, showing subsegmental basilar atelectasis, and possible prominence of interstitium. Patient remains nothing by mouth except for ice chips, NG tube is in place, there has been 750 mL of gastric output in the last 24 hours. Webster catheter is in place, patient nonoliguric. Today's labs have been reviewed. Maintenance IV fluids are LR at 150 ML per hour, patient remains on epidural, still complaining of some numbness and burning in his right lower extremity, Doppler right pedal pulses, palpable posttibial, palpable left pedal and posttibial. On 10/11/2018 patient seen in follow-up on selective care unit, he is awake and alert, in no acute distress. Still requires oxygen per high flow nasal cannula, currently at 7 L, he is afebrile, hemodynamically stable. He is working on his incentive spirometer, his last chest x-ray on 10/10/2018 showed bibasilar atele ctasis and mild interstitial congestion. His labs have been reviewed, showing white blood cell count is 16.0, hemoglobin is 10.1, electrodes were within normal limits, B1 is 23 creatinine is 1.70. IV fluids are infusing at a rate of 75 ML per hour, with lactated Ringer's. NG tube is still in place, patient is on clear liquid diet. Patient is complaining of burning sensation in the right calf area, he has been started on Neurontin per vascular surgery. Abdomen is distended but soft, patient does have some hypoactive bowel sounds, has not had a stool. The catheter has been discontinued, and patient is voiding. Objective - Vital Signs Vital signs: Vital Signs Temp 98.4 F 10/11/18 03:20 Pulse 104 H 10/11/18 08:05 Resp 18 10/11/18 03:20 BP 137/65 10/11/18 03:20 Pulse Ox 95 10/11/18 03:20 Intake & Output 10/10/18 10/11/18 10/11/18 18:59 06:59 18:59 Intake Total 900 150 Output Total 518 365 Balance 382 -215 Weight 109.5 kg Intake: IV 900 150 Lactated Ringers 1,000 ml 900 150 @ 75 mls/hr IV .[id number] [facility] Rx#:[id number] Output: Drainage 0 0 Left Groin 0 0 Urine 518 325 Post Void Residual 40 Other: Voiding Method Indwelling Catheter Urinal # Voids 1 ABP, PAP, CO, CI - Last Documented Arterial Blood Pressure 98/94 - Exam GENERAL EXAM: Alert, pleasant, 53-year-old white male, on 7 L of oxygen, resting in bed, mild to moderate amount of discomfort at his surgical incision site co mfortable in no apparent distress. HEAD: Normocephalic/atraumatic. EYES: Normal reaction of pupils, equal size. Conjunctiva pink, sclera white. NOSE: Clear with pink turbinates. THROAT: No erythema or exudates. NECK: No masses, no JVD, no thyroid enlargement, no adenopathy. CHEST: No chest wall deformity. Symmetrical expansion. LUNGS: Equal air entry with basilar crackles CVS: Regular rate and rhythm, normal S1 and S2, no gallops, no murmurs, no rubs ABDOMEN: Soft, nontender. No hepatosplenomegaly, normal bowel sounds, no guarding or rigidity. Midabdominal and Bilateral groin incisions, left groin incision with wound VAC in place EXTREMITIES: No clubbing, no edema, no cyanosis, post tibial pulses palpable, no palpable pedal pulses and upper and lower extremities. MUSCULOSKELETAL: Muscle strength and tone normal. SPINE: No scoliosis or deformity SKIN: No rashes CENTRAL NERVOUS SYSTEM: Alert and oriented -3. Sensation loss, numbness in the right lower extremity, foot, leg, and right hand tone is normal in all 4 extremities. PSYCHIATRIC: Alert and oriented -3. Appropriate affect. Intact judgment and insight. - Labs CBC & Chem 7: 10/10/18 04:49 10/10/18 04:53 Assessment and Plan Plan: Assessment: #1. Peripheral vascular disease, aortoiliac occlusive disease with severe claudication, status post aortobifemoral bypass grafting, postop day 4 #2. Postoperative hypotension, an expected outcome of aortobyfemoral bypass #3. Sensory loss, numbness in the right lower extremity, and right arm. Right hand numbness has resolved. Still complaining of some numbness and burning in the right lower extremity. #4. Hypertension #5. Hyperlipidemia #6. Chronic kidney disease, stage unknown #7. Back pain #8. Osteoarthritis #9. Nicotine dependence, currently in remission, patient quit smoking 3 weeks ago, is 50-[id number]-pxpf smoking history #10. Acute hypoxic respiratory failure dated to interstitial edema, fluid volume overload, atelectasis Plan: Patient is doing well, encourage deep breathing and coughing, vital signs are stable, wean FiO2, increase activity as tolerated, no further diuretics at this point. We'll continue to follow. I performed a history & physical examination of the patient and discussed their management with my nurse practitioner, Shae Christiansen. I reviewed the nurse practitioner's note and agree with the documented findings and plan of care. Lung sounds are positive for diffuse wheezes throughout the lung hickman. The findings and the impression was discussed with the patient. I attest to the documentation by the nurse practitioner. Time with Patient: Less than 30
[2018-10-11] MEDS: GABAPENTIN 300 MG CAP PO SCH ×2 (09:07→20:14)
[2018-10-11] MEDS: PANTOPRAZOLE 40 MG/10 ML VIAL IVP SCH (09:07)
[2018-10-11] MEDS: LISINOPRIL 20 MG TAB PO SCH (09:07)
[2018-10-11] MEDS: HEPARIN SODIUM,PORCINE 5,000 UNIT/ML 1 ML VIAL SQ SCH ×2 (09:07→20:14)
[2018-10-11] MEDS: FENOFIBRATE 160 MG TAB PO SCH (09:07)
[2018-10-11] MEDS: amLODIPine 10 MG TAB PO SCH (09:07)
[2018-10-11] MEDS: ASPIRIN 81 MG PO SCH (09:07)
--- NOTE | 2018-10-11 11:39 | P.PN ---
Subjective Progress Note Date: 10/11/18 Principal diagnosis: Aortoiliac occlusive disease s/p Aortobifemoral bypass Patient has been having worsening pain over the last 24 hours and now can't move his foot. He states his calf is burning and with every movement he has shooting pain to the foot. Objective - Vital Signs Vital signs: Vital Signs Temp 98.4 F 10/11/18 03:20 Pulse 104 H 10/11/18 08:05 Resp 18 10/11/18 03:20 BP 137/65 10/11/18 03:20 Pulse Ox 95 10/11/18 03:20 Intake & Output 10/10/18 10/11/18 10/11/18 18:59 06:59 18:59 Intake Total 900 150 240 Output Total 518 365 Balance 382 -215 240 Weight 109.5 kg Intake: IV 900 150 Lactated Ringers 1,000 ml 900 150 @ 75 mls/hr IV .[id number] [facility] Rx#:[id number] Oral 240 Output: Drainage 0 0 Left Groin 0 0 Urine 518 325 Post Void Residual 40 Other: Voiding Method Indwelling Catheter Urinal # Voids 1 ABP, PAP, CO, CI - Last Documented Arterial Blood Pressure 98/94 - Exam Non palpable popliteal, DP, or PT pulse right lower extremity. Capillary refill is diminished. Unable to palpate right femoral pulse. Left DP pulse palpable. Foot warm. Incision sites are c/d/i, no hematoma noted. Abdomen slightly distended, patient is obese. Non tender to palpation. - Labs CBC & Chem 7: 10/10/18 04:49 10/10/18 04:53 Assessment and Plan Assessment: S/P Aorto-bifemoral artery bypass secondary to aortoiliac occlusion Right lower extremity acute arterial occlusion Plan: Emergent right femoral thrombectomy with right lower extremity revasculariza tion. May need revision of right femoral anastomosis.
[2018-10-11] MEDS ORDERED: HEPARIN SODIUM 1,000 UN/ML (10ML VL) IRRIGATION ONE (11:48)
[2018-10-11] MEDS ORDERED: IV FLUID CONTINUATION 1,000 ML IV ONE (12:15)
[2018-10-11] MEDS ORDERED: fentaNYL (PF) 50 MCG/ML 2 ML AMP IVP ONE (12:16)
[2018-10-11] MEDS ORDERED: DEXAMETHASONE SOD PHOS (MDV) 100 MG/10 ML VIAL IVP ONE (12:18)
[2018-10-11] MEDS ORDERED: ONDANSETRON 4 MG/2 ML VIAL IVP ONE (12:21)
[2018-10-11] MEDS ORDERED: HEPARIN SODIUM,PORCINE 10,000 UNIT/ML 1 ML VIAL ONE (12:32)
[2018-10-11] MEDS ORDERED: PROPOFOL 10 MG/ML 20 ML VIAL IV ONE (12:32)
[2018-10-11] MEDS ORDERED: ROCURONIUM BROMIDE 10 MG/ML 10 ML VIAL IV ONE (12:32)
[2018-10-11] MEDS ORDERED: ALBUMIN HUMAN 5% (12.5gm) 250 ML BOTTLE IVPB ONE (12:32)
[2018-10-11] MEDS ORDERED: LIDOCAINE 1% INJ 10MG/ML (20 ML MDV) ONE (12:32)
[2018-10-11] MEDS ORDERED: fentaNYL (PF) 50 MCG/ML 2 ML AMP ONE (12:32)
[2018-10-11] MEDS ORDERED: PHENYLEPHRINE-0.9% NACL SYG 1 MG/10 ML SYRINGE ONE (12:32)
[2018-10-11] MEDS ORDERED: SUCCINYLCHOLINE CHLORIDE 100 MG/5 ML SYR IV ONE (12:32)
[2018-10-11] MEDS ORDERED: MIDAZOLAM 2 MG/2 ML VIAL ONE (12:32)
[2018-10-11] MEDS ORDERED: LACTATED RINGERS 1,000 ML IV ONE ×5 (16:22→20:03)
[2018-10-11] MEDS ORDERED: ceFAZolin 4 GM, BACITRACIN 200,000 UNIT in SODIUM CHLORIDE 0.9% 1,000 ML IRRIGATION ONE (16:32)
[2018-10-11] MEDS ORDERED: HEPARIN SODIUM,PORCINE 10,000 UNIT in SODIUM CHLORIDE 0.9% 1,000 ML IRRIGATION ONE (16:32)
[2018-10-11] MEDS ORDERED: HEPARIN SOD,PORK IN 0.45% NACL 25,000 UNIT in 0.45% NACL 1 250ML.BAG IV ONE (19:00)
--- NOTE | 2018-10-11 20:21 | PN ---
PROGRESS NOTE CHIEF COMPLAINT: Status post aortofemoral bypass. HISTORY OF PRESENT ILLNESS: This gentleman is having more and more difficulty with the right leg. He is continuing to have increasing pain in the right lower leg. He also has developed weakness. He is barely able to bear weight. PHYSICAL EXAMINATION: Chest is clear. Cardiac exam is normal. Vital signs are normal. The abdomen is soft, nontender. Peripheral circulation is good. IMPRESSION: Postoperative radiculopathy, pain and weakness in the right lower extremity, etiology unknown. PLAN: Continue to follow with Vascular Surgery. Neurologic evaluation is recommended. MMODL / IJN: [id number] /
[2018-10-11 20:26] LABS: Glucose,Whole Blood 149 mg/dL (75-99)
[2018-10-11 21:07] LABS: ABG Base Excess -0.2 mmol/L; ABG HCO3 26 mmol/L (21-25); ABG Oxygen Saturation 99.5 % (94-97); ABG PCO2 47 mmHg (35-45); ABG PH 7.34 (7.35-7.45); ABG PO2 172 mmHg (83-108); ABG TCO2 27 mmol/L (19-24)
[2018-10-11 21:35] LABS: Allen Test Performed? no
[2018-10-11 22:28] LABS: Basophils % (A) 0 %; Eosinophils % (A) 0 %; HCT 20.8 % (39.0-53.0); Lymphocytes # (A) 0.5 k/uL (1.0-4.8); Lymphocytes % (A) 6 %; MCH 29.9 pg (25.0-35.0); MCHC 33.1 g/dL (31.0-37.0); MCV 90.2 fL (80.0-100.0); Mean Platelet Volume 8.3; Monocytes # (A) 0.5 k/uL (0-1.0); Monocytes % (A) 6 %; Neutrophils # (A) 7.4 k/uL (1.3-7.7); Neutrophils % (A) 87 %; Platelet Count 140 k/uL (150-450); RBC 2.31 m/uL (4.30-5.90); RDW 13.9 % (11.5-15.5); WBC 8.5 k/uL (3.8-10.6)
[2018-10-11 22:31] LABS: HGB 6.9 gm/dL (13.0-17.5)
[2018-10-11] MEDS: PROPOFOL 1,000 MG in EMPTY BAG 1 BAG IV SCH ×2 (22:57→23:09)
[2018-10-11 23:02] LABS: Calcium 7.7 mg/dL (8.4-10.2); Potassium 4.8 mmol/L (3.5-5.1)
[2018-10-12] MEDS: GABAPENTIN 300 MG CAP PO SCH ×4 (00:10→21:31)
[2018-10-12] MEDS: CHLORHEXIDINE GLUCONATE 15 ML CUP MUCOUS MEM SCH ×3 (00:10→20:04)
[2018-10-12] MEDS: PANTOPRAZOLE 40 MG TABLET PO SCH ×3 (00:10→20:05)
[2018-10-12] MEDS: HEPARIN SODIUM,PORCINE 5,000 UNIT/ML 1 ML VIAL SQ SCH (00:10)
[2018-10-12] MEDS: PROPOFOL 1,000 MG in EMPTY BAG 1 BAG IV SCH ×8 (02:19→23:30)
[2018-10-12 02:22] LABS: Appearance,Urine Clear (Clear); Bilirubin,Urine Negative (Negative); Blood,Urine Moderate (Negative); Color,Urine Yellow; Glucose,Urine (UA) Negative (Negative); Granular Casts,Urine 1 /lpf (0); Hyaline Casts,Urine 75 /lpf (0-2); Ketones,Urine Negative (Negative); Leukocyte Esterase,Urine Negative (Negative); Nitrite,Urine Negative (Negative); PH, Urine 5.5 (5.0-8.0); Protein,Urine Trace (Negative); Squamous Epithelial Cell,Urine <1 /hpf (0-4); Urobilinogen,Urine <2.0 mg/dL (<2.0)
[2018-10-12] MEDS: HEPARIN SOD,PORK IN 0.45% NACL 25,000 UNIT in 0.45% NACL 1 250ML.BAG IV SCH ×2 (03:06→13:47)
[2018-10-12] MEDS: IPRATROPIUM-ALBUTEROL 3 ML NEB INHALATION PRN ×2 (03:13→23:16)
--- NOTE | 2018-10-12 06:17 | XR ---
EXAMINATION TYPE: XR chest 1V portable DATE OF EXAM: 10/12/2018 HISTORY: Tube placement. REFERENCE: Previous study dated 10/10/2018. FINDINGS: The patient is intubated. ET tube is in satisfactory position with its tip 3.8 cm above the bogdan. Patient is NG tube appears to been removed. There is bibasilar airspace disease, likely representing atelectasis. The heart is mildly prominent. There are small, bilateral effusions. IMPRESSION: 1. STUDY EXPOSED IN EXPIRATION. 2. BIBASILAR AIRSPACE DISEASE. 3. MILD CARDIOMEGALY. 4. I CANNOT EXCLUDE SMALL, BILATERAL EFFUSIONS.
[2018-10-12] MEDS: HYDROmorphone 1 MG/ML 1 ML SYRINGE IVP PRN ×6 (06:51→21:46)
[2018-10-12] MEDS: LACTATED RINGERS 1,000 ML IV SCH ×2 (06:51→08:35)
[2018-10-12 07:05] LABS: Basophils % (A) 0 %; Eosinophils # (A) 0.1 k/uL (0-0.7); Eosinophils % (A) 1 %; HCT 28.7 % (39.0-53.0); Lymphocytes % (A) 8 %; MCH 29.3 pg (25.0-35.0); MCHC 33.9 g/dL (31.0-37.0); MCV 86.5 fL (80.0-100.0); Mean Platelet Volume 8.3; Monocytes # (A) 0.9 k/uL (0-1.0); Monocytes % (A) 7 %; Neutrophils # (A) 9.8 k/uL (1.3-7.7); Neutrophils % (A) 81 %; Platelet Count 187 k/uL (150-450); RBC 3.32 m/uL (4.30-5.90)
[2018-10-12 07:09] LABS: HGB 9.7 gm/dL (13.0-17.5)
[2018-10-12 07:21] LABS: Calcium 7.6 mg/dL (8.4-10.2); Magnesium 2.2 mg/dL (1.6-2.3); Phosphorus 3.3 mg/dL (2.5-4.5); Potassium 4.3 mmol/L (3.5-5.1)
[2018-10-12] MEDS: IPRATROPIUM-ALBUTEROL 3 ML NEB INHALATION SCH ×4 (07:38→18:55)
--- NOTE | 2018-10-12 08:33 | PN ---
PROGRESS NOTE DATE OF SERVICE: 10/12/2018 Critical care time 35 minutes. HISTORY: This is a 53-year-old male who is postop day #5, status post aortoiliac occlusive disease with severe claudication, status post aortobifemoral bypass grafting. The patient was here in the ICU for a number of days. Resting comfortably. He is transferred up to the [address] [place] [address]. Yesterday apparently he went back to the operating room. He had a pulseless right foot. He had a number of different things done including an aortic thrombectomy and right common femoral thrombectomy. In the operating room, he received 2 units of PRBCs and additional blood products including albumin. Here, since he has been here in the ICU, he has received another 2 units of blood. He remains on the mechanical ventilator as per the wishes of vascular surgery. He is currently on the volume assist-control mode rate of 16, tidal volume 500, FiO2 60%, PEEP of 5. Previous blood gases on 100% show pO2 of 172, pCO2 47, pH 7.34. The FiO2 was reduced from 100% to He is currently on lactated Ringer's at 75 mL an hour, heparin via weight based protocol and Diprivan at 50 mcg/kg per per minute. He seems to be doing relatively well and his lower extremities seem to be warming. He has got good pulses bilaterally. In addition, he has a history of postoperative hypotension, hypertension by history, postoperative hypotension and benign essential hypertension by history, hyperlipidemia, chronic kidney disease, back pain, osteoarthritis, and nicotine dependence. Currently, he is sedated and stable in the ICU. PHYSICAL EXAMINATION: VITAL SIGNS: Vital signs are reviewed. Temperature 98.9, heart rate 93, respiratory rate 22, blood pressure 121/99, mean 106 and saturations are 95%. GENERAL: He appears in no acute distress. HEENT examination is grossly unremarkable. He has got orally placed endotracheal tube and NG tube. NECK: Supple. Full range of motion. No adenopathy. Neck veins are flat. CARDIOVASCULAR examination reveals regular rhythm and rate. S1, S2 normal. No S3, S4, or murmur. Heart rate about 90 beats per minute. LUNGS: A few scattered rhonchi. Breath sounds are equal. No wheezes. ABDOMEN is mildly distended. No bowel sounds. EXTREMITIES are intact. They are warm. There are pulses. No edema. SKIN without rash. NEUROLOGIC examination could not be adequately assessed. LABS: No recent labs to report. Chest x-ray is not yet been done. Microbiologic studies are negative or pending. Medications are reviewed. ASSESSMENT: 1. Postoperative day #5, status post aortobifem bypass grafting for severe peripheral vascular disease and aortoiliac occlusive disease. 2. Postoperative day #1 status post aortic thrombectomy and right common femoral thrombectomy secondary to a pulseless right foot. 3. Postoperative ventilator management, routine. 4. Benign essential hypertension. 5. Hyperlipidemia. 6. Chronic kidney disease. 7. Back pain. 8. Osteoarthritis. 9. Chronic nicotine dependence, rule out chronic obstructive pulmonary disease. PLAN: Overall, the patient seemed to be doing relatively well. I am going to wait to wean the patient until vascular surgery assesses him. He may need to go back to the operating room. If he does not need to go back to the operating room, we will stop his propofol and put him on PSV and CPAP and see if we can get him weaned and extubated. I believe we will be able to do that. No additional recommendations are made. We will continue to follow. Prognosis is guarded. Labs, x-rays and medications are all reviewed. Critical care time 35 minutes. MMSEMAJL / CARMINEN: [id number] /
[2018-10-12] MEDS: amLODIPine 10 MG TAB PO SCH (08:34)
[2018-10-12] MEDS: ASPIRIN 81 MG PO SCH (08:34)
[2018-10-12] MEDS: LISINOPRIL 20 MG TAB PO SCH (08:35)
[2018-10-12] MEDS: FENOFIBRATE 160 MG TAB PO SCH (08:48)
[2018-10-12] MEDS: HEPARIN SODIUM,PORCINE 5,000 UNIT/ML 1 ML VIAL IV PRN (11:03)
--- NOTE | 2018-10-12 12:26 | P.OP ---
Date of Procedure: 10/11/18 Preoperative Diagnosis: Acute right lower extremity ischemia status post aortobifemoral bypass Postoperative Diagnosis: Acute right lower extremity iliofemoral, femoral-popliteal occlusion secondary to embolism Acute aortobifemoral bypass occlusion secondary to embolism Acute left femoral, femoral-popliteal occlusion secondary to embolism Procedure(s) Performed: 1. Right groin exploration with right iliofemoral, femoral-popliteal open thrombectomy 2. Right femoral artery anastomotic revision and patch angioplasty 3. Retrograde aortoiliac angiogram 4. Exploratory laparotomy of previous midline incision 5. Open thrombectomy aortobifemoral bypass graft 6. Left groin exploration with iliofemoral, femoral-popliteal open thrombectomy 7. Left superficial femoral artery endarterectomy with reconstruction 8. Incisional VAC placement Anesthesia: KAY Surgeon: Tulio Multani Polisher Implant #1: Dhruv Guajardo Estimated Blood Loss (ml): 1,200 IV fluids (ml): 4,700 Urine output (ml): 700 Pathology: other (Aortic plaque and thrombus) Condition: other (Guarded) Disposition: ICU Indications for Procedure: 53-year-old gentleman who is recent history of aortobifemoral bypass was seen in rounds today and was noted to have severe pain in his right lower extremity with decreased motion of his foot as well as nonpalpable pulses in his right femoral artery as well as no significant signal and flow to the foot. He was diagnosed with acute right lower extremity limb ischemia and was taken to the operating room on an emergent basis. Operative Findings: Acute thrombus noted within the right femoral artery, superficial femoral artery and profundus femoris artery with thrombus extending into the aorta by femoral graft. There was dense plaque and thrombus within the aortic body and upon angiogram was noted that the left femoral graft was also occluded. Upon entrance into the abdomen and the aorta there was a large amount of calcific disease with aortic plaque which was removed to improve blood flow. Description of Procedure: After written informed consent was obtained the patient all risks benefits and competitions were described the patient is brought to the operative suite in an emergent basis. The area of the abdomen bilateral groins were prepped and draped in usual sterile fashion after appropriate anesthetic was performed per the anesthesiologist. A timeout was performed in normal fashion antibiotics were administered prior to incisions. The previous right groin incision was then opened with a 10 blade scalpel and dissection was carried down to the femoral anastomosis. The femoral anastomosis graft, common femoral, superficial femoral and profundus femoris arteries were then dissected in a circumferential manner and controlled with vessel loops. Once controlled patient was administered heparin and followed with ACTs and redosed to keep the ACT above 200. Vertical arteriotomy was then created over the graft and large amount of thrombus was noted. Utilizing a 3F Sony, 5-Romanian Sony and 7-Romanian Sony thrombectomies were performed of the graft as well as the profundus femoris and superficial femoral artery. There was diminished backbleeding noted from the superficial femoral artery at the conclusion of the thrombectomy as well as diminished pulsatile flow from the aortobifemoral bypass. There did seem to be a flap noted at the distal aspect of the anastomosis and therefore the arteriotomy was extended across the distal anastomotic line extending into the superficial femoral artery. The flap was then tacked with 6-0 Prolene suture. Revision of the anastomosis was then performed with patch angioplasty with bovine pericardial patch and 6-0 Prolene suture in a running fashion. Once completed assessment of the blood flow was performed demonstrating good brisk backbleeding but diminished pulsatile flow. Thrombectomy was then performed once again with large amounts of thrombus noted but still no appreciable pulse. Due to this a retrograde angiogram was then obtained demonstrating significant amount of thrombus and plaque within the aorta and the aortobifemoral bypass to the point where was occluding the left femoral limb. A 7-Romanian sheath was then placed followed by an 035 Glidewire and 8 x 40 cm balloon to assess if the graft was twisted. Balloon angioplasty of the graft was then performed demonstrating no evidence of twisting. Pulses were lost in the left lower extremity therefore the decision was made to open the previous abdominal incision to explore the ab domen and perform open thrombectomy of the graft and aorta. Previous incision was then opened after removal of all fahad. Dissection was then carried down to the retroperitoneum and the aorta. A Bookwalter retractor was then placed in normal fashion and the small bowel was placed within the right upper quadrant to allow for access to the retroperitoneum. Retroperitoneal was then reopened and dissection was carried down to the aortic bifemoral bypass graft and aorta. Control was then obtained of the superior aspect of the aorta above the aortobifemoral graft. A transverse graftotomy was then created and notable mouth thrombus was found within the aortic graft. Open thrombectomy was then performed with assessment of the inflow which was poor. Utilizing multiple clamps thrombus was removed from the superior aspect of the aorta with large amounts of plaque and thrombus removed. There was improvement of the pulsatile flow after a large thrombotic plaque was removed. Once pulsati lity was reestablished attention was then placed to the left femoral graft limb. Thrombectomy was then performed with the 7-Romanian and 5-Romanian Sony catheters with large amounts of thrombus removed. Pulsatile flow was noted but there was no signal or pulse within the left dorsalis pedis and therefore decision was made to open the left groin. The right iliofemoral limb was reassessed as well which demonstrated good pulsatility into the femoral artery. Graftotomy is were then closed with 5-0 Prolene suture and control was released demonstrating good pulsatility within the graft. Attention was then placed to the left groin. The previous incision was then opened and the left groin was explored. There was no pulse noted within the superficial femoral or profundus femoris arteries and therefore control was obtained of both arteries as well as the femoral bypass limb and common femoral artery. Once controlled transverse arteriotomy was created at the superficial femoral artery which demonstrated significant amount of plaque and disease with large amounts of thrombus. Utilizing the 3 and 5-Romanian Sony's thrombectomy was performed at the superficial femoral artery distally. Thrombus was removed. He was also performed proximally to the profundus as well as the common femoral and large amount of thrombus was also removed. The arteriotomy was then closed in interrupted fashion with 6-0 Prolene suture. There was good pulsatility within the graft but prior to the superficial femoral artery arteriotomy the pulse diminished and therefore an arteriotomy was created at the graft just above the anastomosis once again there was thrombus as well as difficulty to pass the Sony across the area of previous SFA arteriotomy. At that time the previous arteriotomy was reopened there was dense plaque as well as significant flaps noted and therefore these were endarterectomized. The SFA was then transected and reconstruction was performed in an end to end fashion to improve the blood flow across these flaps. There was brisk backbleeding noted from the SFA at this time as well as the profundus femoris and good pulsatile flow through the graft therefore arteriotomies and graftotomy was closed. There was good multiphasic signal noted at the DP on the left and the groin was then closed in a multilayer fashion. There was good pulse noted within the aortobifem femoral graft and therefore the abdominal incision was then closed first at the retroperitoneum with 0 Vicryl suture and then the abdominal fascia with 2 looped PDS sutures. Prior to closure the abdominal contents was interrogated demonstrating good pink bowel with no evidence of ischemia to the stomach or liver. Attention was then placed to closing the right groin the femoral sheath was removed and access site was closed with 6-0 Prolene suture. There was good pulsatility noted within the graft as well as good backbleeding from the SFA and profundus. All control was released revealing good pulsatile flow within the superficial femoral artery on the right as well as multiphasic signal noted at the DP on the right. Feet were pink with good capillary refill therefore the groin incisions were closed in a multilayer fashion. The skin was then cleansed and closed with fahad and dressed with Provine a wound vacs. Patient tolerated procedure well and at the conclusion of the closures had good capillary refill bilateral feet as well as palpable DP pulses bilaterally. He was then sent to PACU for recovery.
--- NOTE | 2018-10-12 12:54 | P.PN ---
Subjective Progress Note Date: 10/12/18 Principal diagnosis: Aortoiliac occlusive disease s/p Aortobifemoral bypass and takeback for open thrombectomy of aortobifemoral bypass and bilateral femoral-popliteal arteries Overnight patient has been stable per nursing staff. He did have a drop in hemoglobin to 6.9 which was transfused 2 units and recheck H&H demonstrated over 9. He has signals in both lower extremity DPTs according to the nurses overnight and this morning. He is currently ventilated and on 60% FiO2 which they are attempting to decrease for potential extubation. His bilateral incision sites and abdominal incision sites are stable without any evidence of hematoma or drainage according to the nursing staff. Urine output has been roughly 30-50 mL an hour. Objective - Vital Signs Vital signs: Vital Signs Temp 98.9 F 10/12/18 12:00 Pulse 100 10/12/18 12:30 Resp 16 10/12/18 12:30 BP 108/64 10/12/18 12:30 Pulse Ox 93 L 10/12/18 12:30 Intake & Output 10/11/18 10/12/18 10/12/18 18:59 06:59 18:59 Intake Total 1818 5955.029 769.001 Output Total 0 3615 315 Balance 1818 2340.029 454.001 Weight 109.5 kg 115.2 kg Intake: IV 1578 4550 450 Lactated Ringers 1,000 ml 75 750 450 @ 75 mls/hr IV .[id number] [facility] Rx#:[id number] Intake, IV Titration 165.029 319.001 Amount Heparin Sod,Pork in 0.45% 1.733 119.001 NaCl 25,000 unit In 0.45 % NaCl 1 250ml.bag @ 8 UNITS/KG/HR 9.216 mls/hr IV .Q24H [facility] Rx#: [id number] Propofol 1,000 mg In 163.296 200 Empty Bag 1 bag @ Titrate IV .Q0M [facility] Rx#: [id number] Oral 240 Blood Product 0 1240 Rc As-1 Unit 0 [id number] Rc As-1 Unit 0 [id number] Rc As-1 Unit 310 [id number] Rc As-1 Unit 310 [id number] Output: Drainage 0 0 Left Groin 0 0 Urine 2315 315 Emesis 300 Estimated Blood Loss 1000 Other: Voiding Method Indwelling Catheter Indwelling Catheter ABP, PAP, CO, CI - Last Documented Arterial Blood Pressure 110/61 - Exam Abdominal, bilateral femoral incision sites with Provena vacs in place without any signs of hematoma or drainage. Bilateral feet are pink with good capillary refill. Right foot is slightly warmer than the left. Multiphasic signal noted in the right DP and PT. Monophasic signal noted in the left DP. Patient is intubated and nonresponsive secondary to sedation. Bowel sounds are hypoactive. - Labs CBC & Chem 7: 10/12/18 06:47 10/12/18 06:47 Labs: Abnormal Lab Results - Last 24 Hours (Table) 10/11/18 10/11/18 10/11/18 Range/Units 11:56 20:24 21:05 WBC (3.8-10.6) k/uL RBC (4.30-5.90) m/uL Hgb (13.0-17.5) gm/dL Hct (39.0-53.0) % Plt Count (150-450) k/uL Neutrophils # (1.3-7.7) k/uL Lymphocytes # (1.0-4.8) k/uL APTT (22.0-30.0) sec ABG pH 7.34 L (7.35-7.45) ABG pCO2 47 H (35-45) mmHg ABG pO2 172 H (83-108) mmHg ABG HCO3 26 H (21-25) mmol/L ABG Total CO2 27 H (19-24) mmol/L ABG O2 Saturation 99.5 H (94-97) % Sodium (137-145) mmol/L BUN (9-20) mg/dL Creatinine (0.66-1.25) mg/dL Glucose (74-99) mg/dL POC Glucose (mg/dL) 149 H (75-99) mg/dL Calcium (8.4-10.2) mg/dL Urine Protein (Negative) Urine Blood (Negative) Hyaline Casts (0-2) /lpf Crossmatch See Detail 10/11/18 10/11/18 10/12/18 Range/Units 21:10 22:40 02:08 WBC (3.8-10.6) k/uL RBC 2.31 L (4.30-5.90) m/uL Hgb 6.9 L* D (13.0-17.5) gm/dL Hct 20.8 L (39.0-53.0) % Plt Count 140 L (150-450) k/uL Neutrophils # (1.3-7.7) k/uL Lymphocytes # 0.5 L (1.0-4.8) k/uL APTT 43.6 H (22.0-30.0) sec ABG pH (7.35-7.45) ABG pCO2 (35-45) mmHg ABG pO2 (83-108) mmHg ABG HCO3 (21-25) mmol/L ABG Total CO2 (19-24) mmol/L ABG O2 Saturation (94-97) % Sodium 133 L (137-145) mmol/L BUN 23 H (9-20) mg/dL Creatinine 1.36 H (0.66-1.25) mg/dL Glucose 128 H (74-99) mg/dL POC Glucose (mg/dL) (75-99) mg/dL Calcium 7.7 L (8.4-10.2) mg/dL Urine Protein (Negative) Urine Blood (Negative) Hyaline Casts (0-2) /lpf Crossmatch 10/12/18 10/12/18 10/12/18 Range/Units 02:10 06:47 06:47 WBC 12.0 H (3.8-10.6) k/uL RBC 3.32 L (4.30-5.90) m/uL Hgb 9.7 L D (13.0-17.5) gm/dL Hct 28.7 L (39.0-53.0) % Plt Count (150-450) k/uL Neutrophils # 9.8 H (1.3-7.7) k/uL Lymphocytes # (1.0-4.8) k/uL APTT (22.0-30.0) sec ABG pH (7.35-7.45) ABG pCO2 (35-45) mmHg ABG pO2 (83-108) mmHg ABG HCO3 (21-25) mmol/L ABG Total CO2 (19-24) mmol/L ABG O2 Saturation (94-97) % Sodium 133 L (137-145) mmol/L BUN 23 H (9-20) mg/dL Creatinine 1.29 H (0.66-1.25) mg/dL Glucose 111 H (74-99) mg/dL POC Glucose (mg/dL) (75-99) mg/dL Calcium 7.6 L (8.4-10.2) mg/dL Urine Protein Trace H (Negative) Urine Blood Moderate H (Negative) Hyaline Casts 75 H (0-2) /lpf Crossmatch 10/12/18 Range/Units 10:30 WBC (3.8-10.6) k/uL RBC (4.30-5.90) m/uL Hgb (13.0-17.5) gm/dL Hct (39.0-53.0) % Plt Count (150-450) k/uL Neutrophils # (1.3-7.7) k/uL Lymphocytes # (1.0-4.8) k/uL APTT 39.7 H (22.0-30.0) sec ABG pH (7.35-7.45) ABG pCO2 (35-45) mmHg ABG pO2 (83-108) mmHg ABG HCO3 (21-25) mmol/L ABG Total CO2 (19-24) mmol/L ABG O2 Saturation (94-97) % Sodium (137-145) mmol/L BUN (9-20) mg/dL Creatinine (0.66-1.25) mg/dL Glucose (74-99) mg/dL POC Glucose (mg/dL) (75-99) mg/dL Calcium (8.4-10.2) mg/dL Urine Protein (Negative) Urine Blood (Negative) Hyaline Casts (0-2) /lpf Crossmatch Assessment and Plan Assessment: 1. POD 5 Aorto-bifemoral artery bypass secondary to aortoiliac occlusion 2. POD 1 Take back open thrombectomy of aorto-bifemoral bypass and bilateral lower extremities 3. Post operative ventilator management 4. Chronic renal insufficiency 5. Chronic nicotine dependance Plan: Continue ventilator support per ICU team. Continue heparin drip and vascular checks. No indication at this time to take back to OR. If vascular exam is stable tomorrow then will attempt to wean to extubate at that time. Continue npo with OGT to suction.
--- NOTE | 2018-10-12 16:16 | PN ---
PROGRESS NOTE CHIEF COMPLAINT: Postop. HISTORY OF PRESENT ILLNESS: In the middle of the night, this gentleman was taken to the operating room and was opened up and apparently had evidence of internal bleeding with extensive clots. He is now on a ventilator. REVIEW OF SYSTEMS: Unobtainable. PHYSICAL EXAM: Vital signs revealed blood pressure 102/61, pulse 74 and respirations are 21 on the ventilator in he is afebrile. Color is good. Perfusion is good. Breath sounds are heard bilaterally with rhonchi. Cardiac exam is unremarkable with sinus rhythm. IMPRESSION: 1. Status post laparotomy with removal of intraperitoneal blood clots. 2. Status post aortofemoral bypass. 3. Atherosclerotic cardiovascular disease. 4. Chronic obstructive pulmonary disease. PLAN: No change in program and follow with Cardiovascular Surgery. MMODL / IJN: [id number] /
[2018-10-12 20:31] LABS: Basophils % (A) 0 %; Eosinophils # (A) 0.3 k/uL (0-0.7); Eosinophils % (A) 3 %; HCT 29.7 % (39.0-53.0); HGB 10.1 gm/dL (13.0-17.5); Lymphocytes # (A) 1.2 k/uL (1.0-4.8); Lymphocytes % (A) 12 %; MCH 29.8 pg (25.0-35.0); MCHC 34.1 g/dL (31.0-37.0); MCV 87.3 fL (80.0-100.0); Mean Platelet Volume 7.9; Monocytes # (A) 0.7 k/uL (0-1.0); Monocytes % (A) 7 %; Neutrophils # (A) 7.3 k/uL (1.3-7.7); Neutrophils % (A) 76 %; Platelet Count 198 k/uL (150-450); RDW 15.2 % (11.5-15.5); WBC 9.6 k/uL (3.8-10.6)
[2018-10-13] MEDS: PROPOFOL 1,000 MG in EMPTY BAG 1 BAG IV SCH ×10 (01:08→23:01)
[2018-10-13] MEDS: HEPARIN SOD,PORK IN 0.45% NACL 25,000 UNIT in 0.45% NACL 1 250ML.BAG IV SCH ×2 (02:30→21:00)
[2018-10-13] MEDS: IPRATROPIUM-ALBUTEROL 3 ML NEB INHALATION PRN (03:18)
[2018-10-13] MEDS: HYDROmorphone 1 MG/ML 1 ML SYRINGE IVP PRN ×3 (03:26→11:20)
[2018-10-13 03:52] LABS: HGB 9.5 gm/dL (13.0-17.5); MCH 29.9 pg (25.0-35.0); MCHC 33.8 g/dL (31.0-37.0); MCV 88.5 fL (80.0-100.0); Mean Platelet Volume 7.4; Platelet Count 220 k/uL (150-450); RBC 3.17 m/uL (4.30-5.90); RDW 14.8 % (11.5-15.5); WBC 10.6 k/uL (3.8-10.6)
[2018-10-13 03:56] LABS: Albumin 2.2 g/dL (3.5-5.0); Calcium 7.6 mg/dL (8.4-10.2); Magnesium 2.3 mg/dL (1.6-2.3); Phosphorus 3.9 mg/dL (2.5-4.5); Potassium 4.6 mmol/L (3.5-5.1); Total Bilirubin 2.6 mg/dL (0.2-1.3); Total Protein 4.4 g/dL (6.3-8.2)
[2018-10-13 04:09] LABS: Band Neutrophils % 13 %; Eosinophils # (M) 0.21 k/uL (0-0.7); Lymphocytes # (M) 0.95 k/uL (1.0-4.8); Monocytes # (M) 1.06 k/uL (0-1.0); Myelocytes # (M) 0.11 k/uL (0); Myelocytes % 1 %; Neutrophils % (M) 66 %; Nucleated Red Blood Cells 0 /100 WBC (0-0); Total Cells Counted 200
[2018-10-13 04:10] LABS: Polychromasia Present
[2018-10-13 04:11] LABS: INR 0.9 (<1.2); Partial Thromboplastin Time 35.3 sec (22.0-30.0); Prothrombin Time 9.6 sec (9.0-12.0)
[2018-10-13 04:35] LABS: ABG Base Excess 3.1 mmol/L; ABG HCO3 28 mmol/L (21-25); ABG Oxygen Saturation 91.8 % (94-97); ABG PCO2 44 mmHg (35-45); ABG PH 7.41 (7.35-7.45); ABG PO2 64 mmHg (83-108); ABG TCO2 29 mmol/L (19-24); Allen Test Performed? Yes
[2018-10-13] MEDS: HEPARIN SODIUM,PORCINE 5,000 UNIT/ML 1 ML VIAL IV PRN (04:46)
--- NOTE | 2018-10-13 05:10 | CT ---
EXAM: CT Angiography Chest With Intravenous Contrast CT Angiography Abdomen and Pelvis With Intravenous Contrast CLINICAL HISTORY: ITS.REASON CT Reason: pulseless L leg TECHNIQUE: Axial computed tomographic angiography images of the chest, abdomen and pelvis with intravenous contrast using CT angiography protocol. This CT exam was performed using one or more of the following dose reduction techniques: automated exposure control, adjustment of the mA and/or kV according to patient size, and/or use of iterative reconstruction technique. 3D reconstructed images were created and reviewed. COMPARISON: No relevant prior studies available. FINDINGS: Multifocal infiltrates in the lungs. Small bilateral pleural effusions. Extensive lower lobe atelectasis. Endotracheal tube in place. No thoracic aortic dissection or aneurysm. NG tube in the stomach. Absent perfusion of the left kidney. Dilated small bowel loops with fluid levels. Decompressed distal small bowel and large bowel. No linnea- incisional fluid collection. Near-complete occlusion of the abdominal aorta at the level of the left renal artery. There is a short segment dissection in the infrarenal abdominal aorta. 3.1 cm AAA. Complex fluid is present around the infrarenal abdominal aorta. A stent graft arises from the distal aorta. There is occlusion of the proximal left superficial femoral artery with attenuated reconstitution of the remainder of the vessel. There is single vessel runoff in the majority of the left calf. There is no contrast opacification in the distal third of the left leg. Right lower extremity arterial structures are patent. IMPRESSION: Near-complete occlusion of the abdominal aorta at the level of the left renal artery. Absent perfusion of the left kidney. Short segment infrarenal abdominal aortic dissection. There is complex fluid around the infrarenal abdominal aorta, which can be related to postop change and/or rupture. No active hemorrhage. Patent bypass graft. Short segment occlusion of the proximal left SFA with limited reconstitution. Possible small bowel obstruction. Multifocal pulmonary infiltrates. <MYCVCSECTION> [employer] 10/13/18 05:23 Verify Receipt Verified receipt with ROSE Francisco on 10/13 05:23 (-04:00)
[2018-10-13 06:20] LABS: Glucose,Whole Blood 105 mg/dL (75-99)
--- NOTE | 2018-10-13 06:22 | XR ---
EXAMINATION TYPE: XR chest 1V portable DATE OF EXAM: 10/13/2018 HISTORY: Tube placement. REFERENCE: Previous study dated 10/12/2018. FINDINGS: The patient remains intubated. ET tube tip is 4.2 cm from the bogdan in good position. The heart is mildly enlarged. There is vascular congestion and mild interstitial and alveolar airspac e disease. There is blunting of both CP angles. There is more confluent airspace disease behind the l eft heart. IMPRESSION: 1. FINDINGS CONSISTENT WITH MILD HEART FAILURE. 2. BILATERAL EFFUSIONS. 3. CONFLUENT AIRSPACE DISEASE BEHIND THE LEFT HEART MAY REPRESENT CONFLUENT EDEMA OR SUPERIMPOSED PNE UMONIA.
[2018-10-13] MEDS: IPRATROPIUM-ALBUTEROL 3 ML NEB INHALATION SCH ×4 (07:14→19:05)
[2018-10-13] MEDS: CHLORHEXIDINE GLUCONATE 15 ML CUP MUCOUS MEM SCH ×2 (08:43→21:06)
[2018-10-13] MEDS: ASPIRIN 81 MG PO SCH (08:43)
[2018-10-13] MEDS: LACTATED RINGERS 1,000 ML IV SCH ×2 (08:44→21:03)
[2018-10-13] MEDS: PANTOPRAZOLE 40 MG TABLET PO SCH ×2 (08:44→21:06)
[2018-10-13] MEDS: amLODIPine 10 MG TAB PO SCH (08:44)
[2018-10-13] MEDS: LISINOPRIL 20 MG TAB PO SCH (08:44)
[2018-10-13] MEDS: GABAPENTIN 300 MG CAP PO SCH ×3 (08:44→21:06)
[2018-10-13] MEDS: FENOFIBRATE 160 MG TAB PO SCH (08:54)
--- NOTE | 2018-10-13 09:57 | PN ---
PROGRESS NOTE DATE OF SERVICE: 10/12/2018 Critical care time is 37 minutes. This is a 53-year-old gentleman who we have been seeing for a number of days now. He is postop day #6, status post aortoiliac occlusive disease with severe claudication, status post aortobifem bypass grafting. The patient is currently on the mechanical ventilator, has remained on the ventilator. He was transferred out to the floor after being extubated initially and then came back into the unit for a followup surgery including aortic thrombectomy and right common femoral thrombectomy. Currently, he is on the VC plus modality with an inspiratory time of 1 second, a targeted tidal volume of 450, a rate of 16, FiO2 of 100% and PEEP of 5 to be bumped up to 10. Gases this morning show pO2 of only 64, pCO2 of 44, and pH of 7.41. He is receiving lactated Ringer's at 100 mL an hour, propofol at 75 mcg/kg per minute and heparin via weight based protocol. We will have to start tube feeds. In addition, the patient had a CTA last night, which showed near complete occlusion of the abdominal aorta at the level of the left renal artery. There is absent perfusion of the left kidney. There is a short segment infrarenal abdominal aortic dissection, complex fluid around the infrarenal abdominal aorta. No active hemorrhage and possible small bowel obstruction. The patient is currently quite ill. He will need a central line and art line today. He lost a pulse in his left foot. His PEEP will be increased to 10 and we will see if we can get him started on enteral nutrition. He is still a FULL CODE at this point. In addition, he has a history of benign essential hypertension, hyperlipidemia, peripheral vascular disease, chronic kidney disease, chronic back pain, osteoarthritis, and chronic nicotine dependence with possible underlying COPD. PHYSICAL EXAMINATION: VITAL SIGNS: Current vital signs are reviewed. Temperature is 99.4, heart rate 111, respiratory rate 20, blood pressure 121/65, mean 83, saturations are 95%. GENERAL: Appears in no acute distress because he is currently sedated. HEENT examination is grossly unremarkable. There is an orally placed endotracheal tube and NG tube. NECK: Supple. Full range of motion. CARDIOVASCULAR examination reveals regular rhythm and rate. Heart rate about 110 beats per minute. S1, S2 normal. No distinct murmur noted. Heart sounds are distant. LUNGS: Some coarse rhonchi. Breath sounds are diminished. ABDOMEN is distended. No bowel sounds are noted. EXTREMITIES reveal some mild edema. No pulses in the left foot. No cyanosis or clubbing. SKIN without rash. NEUROLOGIC examination could not be adequately assessed. Microbiologic studies thus far everything is negative. LABS: Reviewed. White count 10.6, hemoglobin 9.5, hematocrit 28.0, platelet count 320,000. PT/INR and PTT are noted. PTT 35.3. Blood gases have been noted already. PEEP was increased from 5-10. Sodium 136, potassium 4.6, chloride 102, CO2 of 27, anion gap 7, BUN and creatinine were 27 and 1.86. AST 275, ALT 94, albumin 2.2. Chest x-ray shows mild heart failure, bilateral pleural effusions and some possible retrocardiac airspace disease, infiltrate or atelectasis. ASSESSMENT: 1. Postoperative day #6 status post aortobifem bypass grafting for severe peripheral vascular disease and aortoiliac occlusive disease. 2. Postoperative day #2 status post aortic thrombectomy and right common femoral thrombectomy secondary to a pulseless right foot. 3. Recent CTA showing almost near complete occlusion of the abdominal aorta at the level of the left renal artery. 4. Routine postoperative ventilator management. 5. Benign essential hypertension. 6. Hyperlipidemia. 7. Chronic kidney disease. 8. Chronic back pain. 9. Osteoarthritis. 10.History of chronic nicotine dependence, rule out chronic obstructive pulmonary disease. PLAN: The patient seems to be doing better on the VC plus mode. We have a targeted tidal volume of 450 and an inspiratory time of 1 second. Unfortunately, his oxygenation is poor and we bumped his PEEP up from 5 to 10. A repeat blood gas will be done. We will start him on tube feeds. The left foot is pulseless. An art line and central line will be replaced. His overall prognosis remains very poor. I was hoping to be able to wean him, but obviously in the last 24 hours, his condition has declined. We will continue to follow and manage closely along with vascular surgery. Critical care time is 37 minutes. MMODL / IJN: [id number] /
--- NOTE | 2018-10-13 10:36 | PN ---
PROGRESS NOTE DATE OF SERVICE: 10/13/2018. CHIEF COMPLAINT: Aortic occlusion. HISTORY OF PRESENT ILLNESS: This gentleman is still on a ventilator. He has developed a cool left leg with mottling in the foot. REVIEW OF SYSTEMS: Unobtainable. PHYSICAL EXAM: His vital signs are currently normal. On a ventilator he has copious rhonchi bilaterally. Cardiac exam is normal and the abdomen is silent. Extremities demonstrated a cool, pulses mottled left lower leg and foot. IMPRESSION: 1. Status post aortofemoral bypass. 2. Ischemia, left leg. 3. Chronic obstructive pulmonary disease. 4. Respiratory failure. PLAN: Continue to follow with Cardiovascular surgery. MMODL / IJN: [id number] /
--- NOTE | 2018-10-13 10:54 | XR ---
EXAMINATION TYPE: XR chest 1V portable DATE OF EXAM: 10/13/2018 HISTORY: sob . REFERENCE: Previous study dated 10/13/2018. FINDINGS: The patient remains intubated. A left-sided central line has been inserted. Its tip is at t he cavoatrial junction. There is no evidence of pneumothorax. There continues be cardiomegaly. There is vascular congestion and interstitial edema. There are small , bilateral effusions. IMPRESSION: 1. NO POST CATHETER PLACEMENT COMPLICATION. 2. CONTINUING CHANGES CONSISTENT WITH CONGESTIVE HEART FAILURE.
[2018-10-13] MEDS ORDERED: CISATRACURIUM 2 MG/ML 5 ML VIAL IV ONE ×2 (10:55→11:50)
--- NOTE | 2018-10-13 10:57 | PCN ---
PROCEDURE NOTE TRIPLE LUMEN CATHETER PLACEMENT: Indication: Hemodynamic monitoring/Intravenous access. A time-out was completed verifying correct patient, procedure, site, positioning, and implant(s) or special equipment if applicable. The patient was placed in a dependent position appropriate for triple lumen catheter placement based on the vein to be cannulated. The patient's left neck was prepped and draped in sterile fashion. 1% Lidocaine was used to anesthetize the surrounding skin area. A triple lumen 9F Cordis catheter was introduced into the internal jugular vein using Seldinger technique. The catheter was threaded smoothly over the guide wire and appropriate blood return was obtained. Each lumen of the catheter was evacuated of air and flushed with sterile saline. The catheter was then sutured in place to the skin and a sterile dressing applied. Perfusion to the extremity distal to the point of catheter insertion was checked and found to be adequate. There was no immediate complication. We used a posterior approach left internal jugular. The catheter was seen to be into the superior vena cava. The tip of the catheter. There was no immediate complication. The reason for the procedure is administration of fluids and pressors. A chest x-ray had been ordered. After the procedure again there was no immediate complication. Catheter was sutured in place. Sterile dressing was applied by the nurse. MMODL / IJN: [id number] /
--- NOTE | 2018-10-13 11:00 | PCN ---
PROCEDURE NOTE ARTERIAL LINE PLACEMENT: Indications: Hemodynamic monitoring. PREOP DIAGNOSIS: Frequent blood gases and blood gas monitoring as well as frequent blood draws. A time-out was completed verifying correct patient, procedure, site, positioning, and implant(s) or special equipment if applicable. Donnell's test was performed to ensure adequate perfusion. The patient's left arm was prepped and draped in sterile fashion. 1% Lidocaine was used to anesthetize the area. An 18G Arrow arterial line was introduced into the left brachial artery. The catheter was threaded over the guide wire and the needle was removed with appropriate pulsatile blood return. Blood loss was minimal. The catheter was then sutured in place to the skin and a sterile dressing applied. Perfusion to the extremity distal to the point of catheter insertion was checked and found to be adequate. The patient tolerated the procedure well and there were no complications. Left brachial site was used. There was no immediate complication. The catheter was sutured in place. Sterile dressing was applied by the nurse. There was no immediate complication. MMODL / IJN: [id number] /
[2018-10-13 11:35] LABS: ABG Base Excess 0.8 mmol/L; ABG HCO3 28 mmol/L (21-25); ABG Oxygen Saturation 79.7 % (94-97); ABG PCO2 59 mmHg (35-45); ABG PH 7.28 (7.35-7.45); ABG TCO2 29 mmol/L (19-24)
[2018-10-13 11:40] LABS: ABG PO2 51 mmHg (83-108); Allen Test Performed? no
--- NOTE | 2018-10-13 12:10 | FL ---
EXAMINATION TYPE: FL guidance operating room DATE OF EXAM: 10/11/2018 CLINICAL HISTORY: Fluoroscopic documentation during angiography TECHNIQUE: Fluoroscopy. COMPARISON: None. FINDINGS: Fluoroscopic guidance was provided during pain relief procedure performed by Dr. Sequeira . A total of 6 minutes and 15 seconds of fluoroscopic time was utilized during the procedure and 6 s pot images are acquired. Images acquired shows opacification of the arterial vasculature within the r ight lower extremity. IMPRESSION: As Above.
[2018-10-13] MEDS: CISATRACURIUM 200 MG in SODIUM CHLORIDE 0.9% 180 ML IV SCH (12:14)
[2018-10-13] MEDS: ARTIFICIAL TEARS-HYPROMELLOSE DROPS 15 ML BTL BOTH EYES SCH ×4 (12:15→23:32)
--- NOTE | 2018-10-13 13:52 | P.PN ---
Subjective Progress Note Date: 10/13/18 Principal diagnosis: Aortoiliac occlusive disease s/p Aortobifemoral bypass and takeback for open thrombectomy of aortobifemoral bypass and bilateral femoral-popliteal arteries Patient seen and examined. Overnight issues discussed with nurse at that time. Patient was continued on heparin and CT scan was reviewed. There is a dissection noted in the aorta with left kidney ischemia noted likely due to the dissection and dense thrombus encountered from surgery. There is a patent graft with occlusion at previous left SFA reconstruction. Per the nursing staff last night patient had left lower extremity diminished pulse and cooling of the extremities. Patient did have capillary refill until recently when his left leg became more mottled and cold. He has also had a drop in urine output due to kidney ischemia. He is having some difficulty with the ventilator and needed adjustments to his medication and vent settings per ICU care team. He had arterial line and central venous catheter placed by ICU team as well. Objective - Vital Signs Vital signs: Vital Signs Temp 98.8 F 10/13/18 12:00 Pulse 107 H 10/13/18 13:00 Resp 20 10/13/18 13:00 BP 99/48 10/13/18 13:00 Pulse Ox 87 L 10/13/18 13:00 Intake & Output 10/12/18 10/13/18 10/13/18 18:59 06:59 18:59 Intake Total 5865.306 0226.162 1095.515 Output Total 0254 301 9192 Balance 983.677 7917.162 50.515 Weight 114.9 kg 114.9 kg Intake: IV 1100 1200 700 Lactated Ringers 1,000 ml 1100 1200 700 @ 100 mls/hr IV .Q10H [facility] Rx#:[id number] Intake, IV Titration 471.266 829.162 395.515 Amount Cisatracurium 200 mg In 27.6 Sodium Chloride 0.9% 180 ml @ 2 MCG/KG/MIN 13.788 mls/hr IV .[id number] [facility] Rx #:[id number] Heparin Sod,Pork in 0.45% 171.266 282.922 68.555 NaCl 25,000 unit In 0.45 % NaCl 1 250ml.bag @ 8 UNITS/KG/HR 9.216 mls/hr IV .Q24H [facility] Rx#: [id number] Propofol 1,000 mg In 300 546.240 299.36 Empty Bag 1 bag @ Titrate IV .Q0M [facility] Rx#: [id number] Other 40 Output: Gastric Drainage 650 Drainage 0 Left Groin 0 Medial Abdomen 0 Right Groin 0 Urine 660 655 445 Emesis 600 Other: Voiding Method Indwelling Catheter Indwelling Catheter Indwelling Catheter ABP, PAP, CO, CI - Last Documented Arterial Blood Pressure 97/44 - Exam Vented, sedated Midline incision, and bilateral groin incisions with VAC in place. Right lower extremity is warm, with good capillary refill and +doppler signal to the DP. Left lower extremity is mottled, cold without any doppler signal to the DP or PT. - Labs CBC & Chem 7: 10/13/18 03:15 10/13/18 03:15 Labs: Abnormal Lab Results - Last 24 Hours (Table) 10/12/18 10/12/18 10/13/18 Range/Units 17:11 20:00 03:15 RBC 3.40 L 3.17 L (4.30-5.90) m/uL Hgb 10.1 L 9.5 L (13.0-17.5) gm/dL Hct 29.7 L 28.0 L (39.0-53.0) % Neutrophils # (Manual) 8.30 H (1.3-7.7) k/uL Lymphocytes # (Manual) 0.95 L (1.0-4.8) k/uL Monocytes # (Manual) 1.06 H (0-1.0) k/uL Myelocytes # (Manual) 0.11 H (0) k/uL APTT 61.8 H (22.0-30.0) sec ABG pH (7.35-7.45) ABG pCO2 (35-45) mmHg ABG pO2 (83-108) mmHg ABG HCO3 (21-25) mmol/L ABG Total CO2 (19-24) mmol/L ABG O2 Saturation (94-97) % Sodium (137-145) mmol/L BUN (9-20) mg/dL Creatinine (0.66-1.25) mg/dL POC Glucose (mg/dL) (75-99) mg/dL Calcium (8.4-10.2) mg/dL Total Bilirubin (0.2-1.3) mg/dL AST (17-59) U/L ALT (21-72) U/L Total Protein (6.3-8.2) g/dL Albumin (3.5-5.0) g/dL 10/13/18 10/13/18 10/13/18 Range/Units 03:15 03:15 04:34 RBC (4.30-5.90) m/uL Hgb (13.0-17.5) gm/dL Hct (39.0-53.0) % Neutrophils # (Manual) (1.3-7.7) k/uL Lymphocytes # (Manual) (1.0-4.8) k/uL Monocytes # (Manual) (0-1.0) k/uL Myelocytes # (Manual) (0) k/uL APTT 35.3 H (22.0-30.0) sec ABG pH (7.35-7.45) ABG pCO2 (35-45) mmHg ABG pO2 64 L (83-108) mmHg ABG HCO3 28 H (21-25) mmol/L ABG Total CO2 29 H (19-24) mmol/L ABG O2 Saturation 91.8 L (94-97) % Sodium 136 L (137-145) mmol/L BUN 27 H (9-20) mg/dL Creatinine 1.86 H (0.66-1.25) mg/dL POC Glucose (mg/dL) (75-99) mg/dL Calcium 7.6 L (8.4-10.2) mg/dL Total Bilirubin 2.6 H (0.2-1.3) mg/dL AST 275 H (17-59) U/L ALT 94 H (21-72) U/L Total Protein 4.4 L (6.3-8.2) g/dL Albumin 2.2 L (3.5-5.0) g/dL 10/13/18 10/13/18 Range/Units 06:18 11:31 RBC (4.30-5.90) m/uL Hgb (13.0-17.5) gm/dL Hct (39.0-53.0) % Neutrophils # (Manual) (1.3-7.7) k/uL Lymphocytes # (Manual) (1.0-4.8) k/uL Monocytes # (Manual) (0-1.0) k/uL Myelocytes # (Manual) (0) k/uL APTT (22.0-30.0) sec ABG pH 7.28 L (7.35-7.45) ABG pCO2 59 H (35-45) mmHg ABG pO2 51 L* (83-108) mmHg ABG HCO3 28 H (21-25) mmol/L ABG Total CO2 29 H (19-24) mmol/L ABG O2 Saturation 79.7 L (94-97) % Sodium (137-145) mmol/L BUN (9-20) mg/dL Creatinine (0.66-1.25) mg/dL POC Glucose (mg/dL) 105 H (75-99) mg/dL Calcium (8.4-10.2) mg/dL Total Bilirubin (0.2-1.3) mg/dL AST (17-59) U/L ALT (21-72) U/L Total Protein (6.3-8.2) g/dL Albumin (3.5-5.0) g/dL Microbiology - Last 24 Hours (Table) 10/12/18 09:30 Gram Stain - Preliminary Sputum Sputum Culture - Final Moraxella(branhamella) catarra Assessment and Plan Assessment: 1. POD 5 Aorto-bifemoral artery bypass secondary to aortoiliac occlusion 2. POD 1 Take back open thrombectomy of aorto-bifemoral bypass and bilateral lower extremities 3. Post operative ventilator management 4. Acute on chronic renal failure 5. Chronic nicotine dependance 6. Acute left lower extremity arterial occlusion Plan: To the OR for left femoral thrombectomy with possible left axillary-femoral bypass vs. left lower extremity bypass Family is at bedside and updated and all questions answered. Patient continues to be high risk and prognosis is poor.
[2018-10-13 14:17] LABS: HGB 8.8 gm/dL (13.0-17.5); MCH 30.8 pg (25.0-35.0); MCHC 33.8 g/dL (31.0-37.0); MCV 91.2 fL (80.0-100.0); Mean Platelet Volume 7.6; Platelet Count 243 k/uL (150-450); RBC 2.85 m/uL (4.30-5.90); RDW 15.1 % (11.5-15.5); WBC 14.1 k/uL (3.8-10.6)
[2018-10-13] MEDS ORDERED: SODIUM CHLORIDE 0.9% IRRIGATION ONE (14:30)
[2018-10-13] MEDS ORDERED: BACITRACIN IRRIGATION ONE (14:30)
[2018-10-13] MEDS ORDERED: CEFAZOLIN IRRIGATION ONE (14:30)
[2018-10-13] MEDS ORDERED: SODIUM CHLORIDE 0.9% 1,000 ML IV ONE (14:38)
[2018-10-13 14:42] LABS: Albumin 2.1 g/dL (3.5-5.0); Calcium 7.2 mg/dL (8.4-10.2); Potassium 4.9 mmol/L (3.5-5.1); Total Bilirubin 2.9 mg/dL (0.2-1.3); Total Protein 4.3 g/dL (6.3-8.2)
[2018-10-13] MEDS: NOREPINEPHRINE 32 MG in SODIUM CHLORIDE 0.9% 218 ML IV SCH (14:52)
[2018-10-13] MEDS ORDERED: HEPARIN SODIUM,PORCINE 5,000 UNIT/ML 1 ML VIAL ONE (15:03)
[2018-10-13] MEDS ORDERED: LACTATED RINGERS 1,000 ML IV ONE ×2 (15:03→18:21)
[2018-10-13] MEDS ORDERED: fentaNYL (PF) 50 MCG/ML 2 ML AMP ONE (15:03)
[2018-10-13] MEDS ORDERED: SODIUM CHLORIDE 0.9% 100 ML with ceFAZolin 2,000 MG IV ONE ×2 (15:29)
[2018-10-13] MEDS ORDERED: HEPARIN SODIUM,PORCINE 10,000 UNIT in SODIUM CHLORIDE 0.9% 1,000 ML IRRIGATION ONE (16:03)
[2018-10-13] MEDS ORDERED: IOPAMIDOL-370 50ML BTL INJ ONE (16:20)
[2018-10-13] MEDS: ALTEPLASE 2 MG VIAL (CATHFLO) IV SCH ×2 (17:28→19:15)
[2018-10-14] MEDS: PROPOFOL 1,000 MG in EMPTY BAG 1 BAG IV SCH ×6 (01:50→21:13)
[2018-10-14] MEDS: ARTIFICIAL TEARS-HYPROMELLOSE DROPS 15 ML BTL BOTH EYES SCH ×5 (03:27→21:14)
[2018-10-14 04:25] LABS: HCT 30.2 % (39.0-53.0); HGB 9.5 gm/dL (13.0-17.5); Hypochromasia Slight; MCH 28.9 pg (25.0-35.0); MCHC 31.6 g/dL (31.0-37.0); MCV 91.6 fL (80.0-100.0); Mean Platelet Volume 7.2; Platelet Count 286 k/uL (150-450); RBC 3.29 m/uL (4.30-5.90); RDW 15.3 % (11.5-15.5); WBC 19.3 k/uL (3.8-10.6)
[2018-10-14 04:59] LABS: Band Neutrophils % 37 %; Eosinophils # (M) 0.19 k/uL (0-0.7); Lymphocytes # (M) 1.35 k/uL (1.0-4.8); Metamyelocytes # (M) 0.39 k/uL (0); Metamyelocytes % 2 %; Monocytes # (M) 0.77 k/uL (0-1.0); Myelocytes # (M) 0.19 k/uL (0); Myelocytes % 1 %; Neutrophils % (M) 50 %; Nucleated Red Blood Cells 0 /100 WBC (0-0); Polychromasia Present; Total Cells Counted 200
[2018-10-14 05:02] LABS: ABG Base Excess -4.2 mmol/L; ABG HCO3 25 mmol/L (21-25); ABG Oxygen Saturation 97.3 % (94-97); ABG PCO2 70 mmHg (35-45); ABG PO2 118 mmHg (83-108); ABG TCO2 27 mmol/L (19-24); Allen Test Performed? Yes
[2018-10-14 05:05] LABS: ABG PH 7.16 (7.35-7.45)
[2018-10-14 05:19] LABS: Albumin 2.3 g/dL (3.5-5.0); Calcium 6.9 mg/dL (8.4-10.2); Potassium 5.4 mmol/L (3.5-5.1); Total Bilirubin 2.7 mg/dL (0.2-1.3); Total Protein 4.6 g/dL (6.3-8.2)
[2018-10-14] MEDS: LACTATED RINGERS 1,000 ML IV SCH ×2 (06:11→12:44)
[2018-10-14 06:24] LABS: Magnesium 2.3 mg/dL (1.6-2.3)
[2018-10-14 06:36] LABS: Phosphorus 9.3 mg/dL (2.5-4.5)
[2018-10-14] MEDS: HEPARIN SOD,PORK IN 0.45% NACL 25,000 UNIT in 0.45% NACL 1 250ML.BAG IV SCH ×2 (06:37→22:06)
[2018-10-14] MEDS: IPRATROPIUM-ALBUTEROL 3 ML NEB INHALATION SCH ×4 (07:22→19:34)
--- NOTE | 2018-10-14 08:44 | XR ---
EXAMINATION TYPE: XR chest 1V portable DATE OF EXAM: 10/14/2018 COMPARISON: 10/14/2018 HISTORY: Tube placement TECHNIQUE: Single frontal view of the chest is obtained. FINDINGS: Diffuse interstitial pattern with bilateral infiltrate and pleural effusion. ET and NG tub es stable. No pneumothorax. Heart size stable. Hypertrophic changes spine. IMPRESSION: 1. Correlate for CHF otherwise consider pneumonia. Findings stable.
[2018-10-14] MEDS: CISATRACURIUM 200 MG in SODIUM CHLORIDE 0.9% 180 ML IV SCH ×2 (08:49→21:05)
[2018-10-14] MEDS: amLODIPine 10 MG TAB PO SCH (08:50)
[2018-10-14] MEDS: LISINOPRIL 20 MG TAB PO SCH (08:50)
--- NOTE | 2018-10-14 08:50 | FL ---
EXAMINATION TYPE: FL guidance operating room DATE OF EXAM: 10/13/2018 HISTORY: Flouroscopy time 2 minutes and 22 seconds of fluoroscopy provided. IMPRESSION: 1. Fluoroscopy time.
[2018-10-14] MEDS: GABAPENTIN 300 MG CAP PO SCH ×3 (08:51→21:13)
[2018-10-14] MEDS: CHLORHEXIDINE GLUCONATE 15 ML CUP MUCOUS MEM SCH ×2 (08:51→21:12)
[2018-10-14] MEDS: PANTOPRAZOLE 40 MG TABLET PO SCH ×2 (08:51→21:13)
[2018-10-14] MEDS: ASPIRIN 81 MG PO SCH (08:51)
[2018-10-14] MEDS: FENOFIBRATE 160 MG TAB PO SCH (08:51)
[2018-10-14 10:53] LABS: ABG Base Excess -4.8 mmol/L; ABG HCO3 23 mmol/L (21-25); ABG Oxygen Saturation 96.3 % (94-97); ABG PCO2 60 mmHg (35-45); ABG PO2 100 mmHg (83-108); ABG TCO2 25 mmol/L (19-24); Allen Test Performed? Yes
[2018-10-14] MEDS: LEVOFLOXACIN 250MG-D5W PMX 250 MG in DEXTROSE/WATER 1 50ML.BAG IVPB SCH (11:01)
[2018-10-14 14:50] LABS: Calcium 6.7 mg/dL (8.4-10.2); Potassium 5.3 mmol/L (3.5-5.1)
[2018-10-14] MEDS: HYDROmorphone 1 MG/ML 1 ML SYRINGE IVP SCH ×3 (15:03→21:13)
[2018-10-14] MEDS ORDERED: SODIUM CHLORIDE 0.9% 1,000 ML IV ONE (16:24)
--- NOTE | 2018-10-14 16:53 | P.PN ---
Subjective Progress Note Date: 10/14/18 On 10/14/2018 I'm seeing Mr. Agarwal for a follow-up. This morning he is sedated and calm and comfortable. He is on propofol at 50 g per KG per minute. Patient is also paralyzed with a Nimbex drip. He remains on a mechanical ventilator on a volume cycle with a tidal volume of 400 with an FiO2 of 80% with a PEEP of 20 and the rate of 22. Chest x-ray still showing bilateral pulmonary infiltrates consistent with acute lung injury/ARDS. ET tube is in a good location. No significant orotracheal secretions. Hemodynamically, we're supporting this patient with levo fed and it's running at 17 g per minute to maintain a systolic blood pressure above 100. The patient's lower extremity perfusion is is highly dependent on his blood pressure and lower blood pressures are obviously affecting his confusion and pulsation lower extremities. At this point in time he has a Doppler significant and lower extremities bilaterally. The patient also on lactated Ringer at 100 cc an hour. Blood gases from today showed a pH of 7.2 with a pCO2 of 60 and pO2 of 100 and this was done and a tidal volume of 400. Note that earlier the tidal volume was at 4:15 I dropped a due to concerns of acute lung injury/ARDS. His white cell count is at 19.3. Hemoglobin stable at 9.5. The patient is also developing an acute kidney injury. Creatinine is up to 3.14. Her urine output is 20 mL an hour. He is also on tube feeds with vital high protein at the rate of 20 mL an hour. He has no significant residuals. No fever. The cardiac rhythm is sinus. The patient is also on IV heparin. The patient's PT was subtherapeutic in the necessary adjustments are being done. He remains on oral aspirin 81 mg by mouth daily. Family is at the bedside. I updated the family and his condition. Objective - Vital Signs Vital signs: Vital Signs Temp 99.0 F 10/14/18 12:30 Pulse 112 H 10/14/18 16:03 Resp 32 H 10/14/18 15:00 BP 151/67 10/14/18 08:00 Pulse Ox 95 10/14/18 15:00 Intake & Output 10/13/18 10/14/18 10/14/18 18:59 06:59 18:59 Intake Total 4942.615 2339.064 1442.185 Output Total 2200 1050 285 Balance 2742.615 4998.666 1558.185 Weight 114.9 kg 117.3 kg Intake: IV 2503.0 1227 824 Lactated Ringers 1,000 ml 1000 1200 800 @ 100 mls/hr IV .Q10H [facility] Rx#:[id number] Pressure bag 27 24 Intake, IV Titration 2439.615 752.064 448.185 Amount Cisatracurium 200 mg In 69.0 144.257 26.317 Sodium Chloride 0.9% 180 ml @ 2 MCG/KG/MIN 13.788 mls/hr IV .[id number] [facility] Rx #:[id number] Heparin Sod,Pork in 0.45% 198.969 109.959 NaCl 25,000 unit In 0.45 % NaCl 1 250ml.bag @ 18 UNITS/KG/HR 20.682 mls/hr IV .Q12H6M [facility] Rx#: [id number] Heparin Sod,Pork in 0.45% 68.555 NaCl 25,000 unit In 0.45 % NaCl 1 250ml.bag @ 8 UNITS/KG/HR 9.216 mls/hr IV .Q24H [facility] Rx#: [id number] Lactated Ringers 1,000 ml 1000 @ 0 mls/hr IV .STK-MED ONE Rx#:[id number] Norepinephrine 32 mg In 2.7 58.262 70.007 Sodium Chloride 0.9% 218 ml @ 0.05 MCG/KG/MIN 2. 693 mls/hr IV .Q24H [facility] Rx#:[id number] Propofol 1,000 mg In 299.36 350.576 241.902 Empty Bag 1 bag @ Titrate IV .Q0M [facility] Rx#: [id number] Sodium Chloride 0.9% 1, 1000 000 ml @ 999 mls/hr IV . Q1H1M [facility] Rx#:[id number] Tube Feeding 300 140 Blood Product 0 Rc As-1 Unit 0 [id number] Other 60 30 Output: Urine 1175 950 285 Emesis 600 100 Oral Regurgitation 400 Estimated Blood Loss 25 Other: Voiding Method Indwelling Catheter Indwelling Catheter Indwelling Catheter ABP, PAP, CO, CI - Last Documented Arterial Blood Pressure 151/61 - Exam GENERAL EXAM: Alert, pleasant, 53-year-old white male, intubated on a mechanical ventilator and the patient is sedated and paralyzed. HEAD: Normocephalic/atraumatic. EYES: Normal reaction of pupils, equal size. Conjunctiva pink, sclera white. NOSE: Clear with pink turbinates. THROAT: No erythema or exudates. NECK: No masses, no JVD, no thyroid enlargement, no adenopathy. The patient has a left neck IJ triple lumen catheter in place. CHEST: No chest wall deformity. Symmetrical expansion. LUNGS: Equal air entry with basilar crackles CVS: Regular rate and rhythm, normal S1 and S2, no gallops, no murmurs, no rubs ABDOMEN: Soft, nontender. No hepatosplenomegaly, normal bowel sounds, no guarding or rigidity. Midabdominal and Bilateral groin incisions, left groin incision with wound VAC in place. EXTREMITIES: No clubbing, no edema, no cyanosis, post tibial pulses palpable, no palpable pedal pulses and upper and lower extremities. The patient has a DPI over his left ankle MUSCULOSKELETAL: Muscle strength and tone normal. SPINE: No scoliosis or deformity SKIN: No rashes, , DPI in the left ankle area CENTRAL NERVOUS SYSTEM: Unable to perform as the patient is sedated and paralyzed for now PSYCHIATRIC: Unable to perform - Labs CBC & Chem 7: 10/14/18 04:10 10/14/18 14:12 Labs: Abnormal Lab Results - Last 24 Hours (Table) 10/11/18 10/13/18 10/14/18 Range/Units 11:56 19:59 04:10 WBC 19.3 H (3.8-10.6) k/uL RBC 3.29 L (4.30-5.90) m/uL Hgb 9.5 L (13.0-17.5) gm/dL Hct 30.2 L (39.0-53.0) % Neutrophils # (Manual) 16.70 H (1.3-7.7) k/uL Metamyelocytes # (Man) 0.39 H (0) k/uL Myelocytes # (Manual) 0.19 H (0) k/uL APTT 87.6 H (22.0-30.0) sec ABG pH (7.35-7.45) ABG pCO2 (35-45) mmHg ABG pO2 (83-108) mmHg ABG Total CO2 (19-24) mmol/L ABG O2 Saturation (94-97) % Sodium (137-145) mmol/L Potassium (3.5-5.1) mmol/L BUN (9-20) mg/dL Creatinine (0.66-1.25) mg/dL Calcium (8.4-10.2) mg/dL Phosphorus (2.5-4.5) mg/dL Total Bilirubin (0.2-1.3) mg/dL AST (17-59) U/L ALT (21-72) U/L Total Protein (6.3-8.2) g/dL Albumin (3.5-5.0) g/dL Crossmatch See Detail 10/14/18 10/14/18 10/14/18 Range/Units 04:10 04:10 05:00 WBC (3.8-10.6) k/uL RBC (4.30-5.90) m/uL Hgb (13.0-17.5) gm/dL Hct (39.0-53.0) % Neutrophils # (Manual) (1.3-7.7) k/uL Metamyelocytes # (Man) (0) k/uL Myelocytes # (Manual) (0) k/uL APTT (22.0-30.0) sec ABG pH 7.16 L* (7.35-7.45) ABG pCO2 70 H (35-45) mmHg ABG pO2 118 H (83-108) mmHg ABG Total CO2 27 H (19-24) mmol/L ABG O2 Saturation 97.3 H (94-97) % Sodium 135 L (137-145) mmol/L Potassium 5.4 H (3.5-5.1) mmol/L BUN 30 H (9-20) mg/dL Creatinine 2.32 H (0.66-1.25) mg/dL Calcium 6.9 L (8.4-10.2) mg/dL Phosphorus 9.3 H* (2.5-4.5) mg/dL Total Bilirubin 2.7 H (0.2-1.3) mg/dL AST 404 H (17-59) U/L ALT 107 H (21-72) U/L Total Protein 4.6 L (6.3-8.2) g/dL Albumin 2.3 L (3.5-5.0) g/dL Crossmatch 10/14/18 10/14/18 Range/Units 10:46 14:12 WBC (3.8-10.6) k/uL RBC (4.30-5.90) m/uL Hgb (13.0-17.5) gm/dL Hct (39.0-53.0) % Neutrophils # (Manual) (1.3-7.7) k/uL Metamyelocytes # (Man) (0) k/uL Myelocytes # (Manual) (0) k/uL APTT (22.0-30.0) sec ABG pH 7.20 L (7.35-7.45) ABG pCO2 60 H (35-45) mmHg ABG pO2 (83-108) mmHg ABG Total CO2 25 H (19-24) mmol/L ABG O2 Saturation (94-97) % Sodium 134 L (137-145) mmol/L Potassium 5.3 H (3.5-5.1) mmol/L BUN 37 H (9-20) mg/dL Creatinine 3.14 H (0.66-1.25) mg/dL Calcium 6.7 L (8.4-10.2) mg/dL Phosphorus (2.5-4.5) mg/dL Total Bilirubin (0.2-1.3) mg/dL AST (17-59) U/L ALT (21-72) U/L Total Protein (6.3-8.2) g/dL Albumin (3.5-5.0) g/dL Crossmatch Microbiology - Last 24 Hours (Table) 10/12/18 09:30 Gram Stain - Final Sputum Sputum Culture - Final Moraxella(branhamella) catarra Haemophilus influenzae Assessment and Plan Plan: 1 peripheral vascular disease, severe and the patient is postop 4 hours to bifemoral bypass surgery and the surgery was done on 10/07/2018, postop day number 7 mild the patient is currently on aspirin and IV heparin. Vasopressors are he is still being utilized to maintain a systolic blood pressure above 120 to maintain adequate perfusion lower extremity and the patient is currently on 17 mics of norepinephrine infusion. 2 acute ischemic limbs postop and the patient underwent a emergent thrombectomy on the right on 10/11/2018 and on the left on 10/13/2018. 4 acute ventilator-dependent respiratory failure secondary to above, consider ARDS, currently sedated and paralyzed with Nimbex to maintain synchrony with the mechanical ventilator 3 diffuse bilateral pulmonary infiltrates with hypoxic respiratory failure, possibly ARDS and the patient's currently intubated and mechanically ventilated. 5 acute kidney injury, secondary to contrast, hypotension, pressor use. Rule out underlying ATN. Urine output remains low and the patient will be given additional IV fluids. 6 aortic dissection, please refer to the CAT scan of the abdomen report 7 chronic kidney disease with a baseline creatinine in the range of 1.9-2 8 chronic back pain 9 hypertension, history of 10 hyperlipidemia 11 obesity with a BMI of 39.3 12 Moraxella catarrhalis and Haemophilus influenza was in the sputum, consider superinfection/pneumonia. The patient will be started on broad-spectrum antibiotics. 13 Deep tissue injury to his left heel. Plan Keep the patient sedated and paralyzed. Keep the patient on mechanical ventilator. The tidal volume to 400 for permissive hypercapnic ventilation. Make further adjustments on the oxygenation based on this patient's FiO2 and oxygen saturation. Keep the PEEP at 20 for now. Continue pressors. Continue sedation. Continue paralytics. Continue lactated Ringer. Add Levaquin regarding the Haemophilus and the Moraxella that was cultured in the sputum. Continued IV heparin. Monitor urine output. Continue enteral feeding for nutritional support. Condition is still very critical and the patient carries a high mortality based on the above-mentioned comorbidities. This is a critically care evaluation that was done and more than 30 minutes. Case was discussed with the vascular surgeon and the case was also discussed with the family at the bedside. Time with Patient: Greater than 30
--- NOTE | 2018-10-14 17:12 | P.PN ---
Subjective Progress Note Date: 10/14/18 Principal diagnosis: Aortoiliac occlusive disease s/p Aortobifemoral bypass and takeback for open thrombectomy of aortobifemoral bypass and bilateral femoral-popliteal arteries Patient seen and examined. Patient has been having some difficulty with ventilation and has been on Nimbex for paralysis to improve his respiration. We are concern for possible ARDS and acute lung injury and he has been treated appropriately. Hemodynamically we continue to support him with pressors to ensure lower extremity perfusion which is dependent on blood pressure greater than 120 mmHg. He has been showing some mild improvement to his ABG with multiple changes of his vent settings. He is experiencing worsening renal failure with elevation of his creatinine. Urine output has been diminished with approximately 20/h noted. Tube feeds are going without residuals. He has not been having any fevers or cardiac arrhythmias. He is also continued on heparin and followed with serial labs for appropriate heparinization. Family is at bedside who has been updated. Objective - Vital Signs Vital signs: Vital Signs Temp 99.0 F 10/14/18 12:30 Pulse 112 H 10/14/18 16:03 Resp 32 H 10/14/18 15:00 BP 151/67 10/14/18 08:00 Pulse Ox 95 10/14/18 15:00 Intake & Output 10/13/18 10/14/18 10/14/18 18:59 06:59 18:59 Intake Total 4942.615 2339.064 2565.185 Output Total 2200 1050 305 Balance 2742.615 9837.866 2537.185 Weight 114.9 kg 117.3 kg Intake: IV 2503.0 1227 927 Lactated Ringers 1,000 ml 1000 1200 900 @ 100 mls/hr IV .Q10H [facility] Rx#:[id number] Pressure bag 27 27 Intake, IV Titration 2439.615 956.322 1237.185 Amount Cisatracurium 200 mg In 69.0 144.257 26.317 Sodium Chloride 0.9% 180 ml @ 2 MCG/KG/MIN 13.788 mls/hr IV .[id number] [facility] Rx #:[id number] Heparin Sod,Pork in 0.45% 198.969 109.959 NaCl 25,000 unit In 0.45 % NaCl 1 250ml.bag @ 18 UNITS/KG/HR 20.682 mls/hr IV .Q12H6M [facility] Rx#: [id number] Heparin Sod,Pork in 0.45% 68.555 NaCl 25,000 unit In 0.45 % NaCl 1 250ml.bag @ 8 UNITS/KG/HR 9.216 mls/hr IV .Q24H [facility] Rx#: [id number] Lactated Ringers 1,000 ml 1000 @ 0 mls/hr IV .STK-MED ONE Rx#:[id number] Norepinephrine 32 mg In 2.7 58.262 70.007 Sodium Chloride 0.9% 218 ml @ 0.05 MCG/KG/MIN 2. 693 mls/hr IV .Q24H [facility] Rx#:[id number] Propofol 1,000 mg In 299.36 350.576 241.902 Empty Bag 1 bag @ Titrate IV .Q0M [facility] Rx#: [id number] Sodium Chloride 0.9% 1, 1000 000 ml @ 999 mls/hr IV . Q1H1M [facility] Rx#:[id number] Sodium Chloride 0.9% 1, 1000 000 ml @ 999 mls/hr IV . Q1H1M [facility] Rx#:[id number] Tube Feeding 300 160 Blood Product 0 Rc As-1 Unit 0 [id number] Other 60 30 Output: Urine 1175 950 305 Emesis 600 100 Oral Regurgitation 400 Estimated Blood Loss 25 Other: Voiding Method Indwelling Catheter Indwelling Catheter Indwelling Catheter ABP, PAP, CO, CI - Last Documented Arterial Blood Pressure 151/61 - Exam Vented, sedated Midline incision, and bilateral groin incisions with dressings in place. Right lower extremity is warm, with good capillary refill and +doppler signal to the DP. Left lower extremity is warm with good capillary refill and positive Doppler signal to the DP and PT - Labs CBC & Chem 7: 10/14/18 04:10 10/14/18 14:12 Labs: Abnormal Lab Results - Last 24 Hours (Table) 10/11/18 10/13/18 10/14/18 Range/Units 11:56 19:59 04:10 WBC 19.3 H (3.8-10.6) k/uL RBC 3.29 L (4.30-5.90) m/uL Hgb 9.5 L (13.0-17.5) gm/dL Hct 30.2 L (39.0-53.0) % Neutrophils # (Manual) 16.70 H (1.3-7.7) k/uL Metamyelocytes # (Man) 0.39 H (0) k/uL Myelocytes # (Manual) 0.19 H (0) k/uL APTT 87.6 H (22.0-30.0) sec ABG pH (7.35-7.45) ABG pCO2 (35-45) mmHg ABG pO2 (83-108) mmHg ABG Total CO2 (19-24) mmol/L ABG O2 Saturation (94-97) % Sodium (137-145) mmol/L Potassium (3.5-5.1) mmol/L BUN (9-20) mg/dL Creatinine (0.66-1.25) mg/dL Calcium (8.4-10.2) mg/dL Phosphorus (2.5-4.5) mg/dL Total Bilirubin (0.2-1.3) mg/dL AST (17-59) U/L ALT (21-72) U/L Total Protein (6.3-8.2) g/dL Albumin (3.5-5.0) g/dL Crossmatch See Detail 10/14/18 10/14/18 10/14/18 Range/Units 04:10 04:10 05:00 WBC (3.8-10.6) k/uL RBC (4.30-5.90) m/uL Hgb (13.0-17.5) gm/dL Hct (39.0-53.0) % Neutrophils # (Manual) (1.3-7.7) k/uL Metamyelocytes # (Man) (0) k/uL Myelocytes # (Manual) (0) k/uL APTT (22.0-30.0) sec ABG pH 7.16 L* (7.35-7.45) ABG pCO2 70 H (35-45) mmHg ABG pO2 118 H (83-108) mmHg ABG Total CO2 27 H (19-24) mmol/L ABG O2 Saturation 97.3 H (94-97) % Sodium 135 L (137-145) mmol/L Potassium 5.4 H (3.5-5.1) mmol/L BUN 30 H (9-20) mg/dL Creatinine 2.32 H (0.66-1.25) mg/dL Calcium 6.9 L (8.4-10.2) mg/dL Phosphorus 9.3 H* (2.5-4.5) mg/dL Total Bilirubin 2.7 H (0.2-1.3) mg/dL AST 404 H (17-59) U/L ALT 107 H (21-72) U/L Total Protein 4.6 L (6.3-8.2) g/dL Albumin 2.3 L (3.5-5.0) g/dL Crossmatch 10/14/18 10/14/18 Range/Units 10:46 14:12 WBC (3.8-10.6) k/uL RBC (4.30-5.90) m/uL Hgb (13.0-17.5) gm/dL Hct (39.0-53.0) % Neutrophils # (Manual) (1.3-7.7) k/uL Metamyelocytes # (Man) (0) k/uL Myelocytes # (Manual) (0) k/uL APTT (22.0-30.0) sec ABG pH 7.20 L (7.35-7.45) ABG pCO2 60 H (35-45) mmHg ABG pO2 (83-108) mmHg ABG Total CO2 25 H (19-24) mmol/L ABG O2 Saturation (94-97) % Sodium 134 L (137-145) mmol/L Potassium 5.3 H (3.5-5.1) mmol/L BUN 37 H (9-20) mg/dL Creatinine 3.14 H (0.66-1.25) mg/dL Calcium 6.7 L (8.4-10.2) mg/dL Phosphorus (2.5-4.5) mg/dL Total Bilirubin (0.2-1.3) mg/dL AST (17-59) U/L ALT (21-72) U/L Total Protein (6.3-8.2) g/dL Albumin (3.5-5.0) g/dL Crossmatch Microbiology - Last 24 Hours (Table) 10/12/18 09:30 Gram Stain - Final Sputum Sputum Culture - Final Moraxella(branhamella) catarra Haemophilus influenzae Assessment and Plan Assessment: 1. POD 6 Aorto-bifemoral artery bypass secondary to aortoiliac occlusion 2. POD 2 Take back open thrombectomy of aorto-bifemoral bypass and bilateral lower extremities 3. POD 1 Take back open thrombectomy of the left femoral popliteal artery with patch angioplasty 4. Acute on chronic renal failure 5. Chronic nicotine dependance 6. Acute left lower extremity arterial occlusion 7. Post operative ventilator Plan: Continue supportive care and ICU management for ventilator. Continue IV heparin and tube feeds. Family updated and we will continue to support the patient at this time. prognosis is poor.
--- NOTE | 2018-10-14 18:28 | PN ---
PROGRESS NOTE CHIEF COMPLAINT: Status post aortofemoral bypass. HISTORY OF PRESENT ILLNESS: This gentleman is still on a ventilator. Vital signs seem to be fairly stable. The left foot is reperfusing. PHYSICAL EXAM: Breath sounds are heard on both sides and cardiac exam is unremarkable. Both feet are well perfused now. IMPRESSION: Status post aortofemoral bypass. PLAN: Continue to follow with Cardiology, Intensive Medicine and Cardiovascular surgery. MMODL / IJN: [id number] /
[2018-10-14 19:08] LABS: ABG Base Excess -7.7 mmol/L; ABG HCO3 22 mmol/L (21-25); ABG Oxygen Saturation 94.9 % (94-97); ABG PCO2 70 mmHg (35-45); ABG PO2 94 mmHg (83-108); ABG TCO2 24 mmol/L (19-24)
[2018-10-14] MEDS: NOREPINEPHRINE 32 MG in SODIUM CHLORIDE 0.9% 218 ML IV SCH (21:04)
[2018-10-14] MEDS ORDERED: FUROSEMIDE 10 MG/ML 10 ML VIAL IV STA (21:46)
[2018-10-15] MEDS: IPRATROPIUM-ALBUTEROL 3 ML NEB INHALATION PRN ×3 (00:13→23:14)
[2018-10-15] MEDS: ARTIFICIAL TEARS-HYPROMELLOSE DROPS 15 ML BTL BOTH EYES SCH ×6 (00:17→20:11)
[2018-10-15] MEDS: PROPOFOL 1,000 MG in EMPTY BAG 1 BAG IV SCH ×6 (00:18→23:29)
[2018-10-15] MEDS: HYDROmorphone 1 MG/ML 1 ML SYRINGE IVP SCH ×6 (00:18→20:12)
[2018-10-15] MEDS: NOREPINEPHRINE 32 MG in SODIUM CHLORIDE 0.9% 218 ML IV SCH ×2 (00:59→10:11)
[2018-10-15] MEDS: LACTATED RINGERS 1,000 ML IV SCH (02:06)
[2018-10-15 05:04] LABS: ABG Base Excess -9.4 mmol/L; ABG HCO3 19 mmol/L (21-25); ABG Oxygen Saturation 92.8 % (94-97); ABG PCO2 55 mmHg (35-45); ABG PO2 75 mmHg (83-108); ABG TCO2 21 mmol/L (19-24); Allen Test Performed? Yes
[2018-10-15 05:10] LABS: ABG PH 7.16 (7.35-7.45)
[2018-10-15 05:42] LABS: HCT 28.1 % (39.0-53.0); HGB 9.2 gm/dL (13.0-17.5); Hypochromasia Moderate; MCH 30.4 pg (25.0-35.0); MCHC 32.6 g/dL (31.0-37.0); MCV 93.1 fL (80.0-100.0); Mean Platelet Volume 7.3; Platelet Count 340 k/uL (150-450); RBC 3.02 m/uL (4.30-5.90); RDW 15.4 % (11.5-15.5)
[2018-10-15 06:04] LABS: Albumin 2.2 g/dL (3.5-5.0); Calcium 6.5 mg/dL (8.4-10.2); Magnesium 2.2 mg/dL (1.6-2.3); Potassium 5.6 mmol/L (3.5-5.1); Total Bilirubin 2.4 mg/dL (0.2-1.3); Total Protein 4.6 g/dL (6.3-8.2)
[2018-10-15 06:09] LABS: Band Neutrophils % 17 %; Lymphocytes # (M) 0.96 k/uL (1.0-4.8); Monocytes # (M) 0.96 k/uL (0-1.0); Neutrophils % (M) 75 %; Nucleated Red Blood Cells 1 /100 WBC (0-0); Total Cells Counted 200; WBC 23.9 k/uL (3.8-10.6)
[2018-10-15 06:12] LABS: Large Platelets Present
[2018-10-15 06:51] LABS: Phosphorus 11.2 mg/dL (2.5-4.5)
[2018-10-15] MEDS: IPRATROPIUM-ALBUTEROL 3 ML NEB INHALATION SCH ×4 (08:31→19:18)
--- NOTE | 2018-10-15 08:41 | P.OP ---
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 Re-exploration of the left groin 2. Left superficial femoral, femoral graft thrombectomy 3. Left superficial femoral, femoral graft patch angioplasty 4. Left lower extremity selective angiogram 5. Left lower extremity fasciotomy Implants: bovine pericardial patch Anesthesia: KAY Surgeon: Tulio Multani [employer] Job Titles #1: Wes Krueger Estimated Blood Loss (ml): 20 IV fluids (ml): 1,500 Urine output (ml): 250 Pathology: none sent Condition: critical Disposition: ICU Indications for Procedure: 53 year old male with previous aorto-bifemoral artery bypass, open thrombectomy presents back to the OR for left lower extremity open thrombectomy and revascularization. Patient over last 8 hours has had worsening left lower extremity vascular flow and became mottled and dusky and therefore had CTA of the graft and lower extremities which showed occlusion of the left SFA with patent graft and poor collateralization to the lower leg. I had a long discussion with family about possible options including open thrombectomy and possible bypass of the lower extremities as well as axillo-femoral bypass. Patient is high risk and this was discussed with family who fully understands and wants to proceed with surgery. Operative Findings: Thrombus noted throughout the superficial femoral artery just distal to the bypass graft. The aortobifemoral graft in the left groin was patent with palpable pulse. Profundus was patent without significant thrombus. Description of Procedure: After written informed consent was obtained from the patient's family and all risks benefits and competitions were described the patient was brought to the operative suite and laid in a supine position the area of the chest abdomen and lower extremities was prepped and draped in usual sterile fashion after appropriate anesthetic per anesthesiology. A timeout was performed in normal fashion antibiotics were administered prior to any incisions. A left groin incision was then reopened after removal of the fahad and suture was cut with Metzenbaum scissors. Vascular retractor was then placed and dissection was carried down to the existing aortobifemoral bypass on the left. The femoral artery was also located and superficial femoral, profunda, common femoral and femoral graft was controlled with vessel loops. There was a palpable pulse within the femoral limb of the graft into the femoral artery just superior to the superficial femoral artery at the previous repair. There is no palpable pulse distal to this area. Because of this patient was administered heparin to keep ACT above 200 and vascular clamps were placed. Arteriotomy was created at the SFA and extended across the previous repair into the previous graft. There was dense amount of thrombus noted throughout the SFA extending into the common femoral. Utilizing a 3-Yakut and 5-Yakut Sony thrombectomy was performed of the SFA and femoral graft. There was pulsatile blood flow noted within the graft and good backbleeding noted from the superficial femoral artery. Both of these were then heparinized. Because of the significant mottling and ischemia and angiogram of the left lower extremity was obtained demonstrating flow extending to the tibial peroneal trunk demonstrating anterior tibial artery and posterior tibial artery takeoff and then sharp cut off just below the knee. There was dense collateralization consistent with chronic disease noted. At that time a patch angioplasty was then performed with a bovine pericardial patch and 6-0 Prolene suture. Once completed flow was then assessed good backbleeding was noted from the profundus as well as the superficial femoral artery and pulsatile flow from the graft. Through the patch a Angiocath was placed and angiogram was once again obtained demonstrating brisk flow to the tibioperoneal trunk with anterior tibial and posterior tibial artery takeoff with occlusion noted at the midportion of the anterior tibial and posterior tibial arteries. There is several collaterals noted throughout the entirety of the lower leg. Good capillary refill was noted at the conclusion of the procedure. Due to the significant timeframe of his lower extremities being ischemic fasciotomies were then performed of the left lower extremity. 2 vertical incisions were then created one on the lateral aspect and one on the medial aspect down to the fascia with electrocautery. The fascia was then incised proximally to the knee and distally towards the ankle. The posterior compartment was also entered with a stat and opened. Once completed the groin incision was then closed in a multilayer fashion skin was cleansed and dressings were placed. The fasciotomy sites were then closed with wet-to-dry dressings and Kerlix. Patient had good capillary refill noted at the left foot with good pink colorization.
--- NOTE | 2018-10-15 08:42 | XR ---
EXAMINATION TYPE: XR chest 1V portable DATE OF EXAM: 10/15/2018 COMPARISON: Prior chest x-ray 10/14/2018 HISTORY: Intubated TECHNIQUE: Single frontal view of the chest is obtained. FINDINGS: Endotracheal tube, orogastric tube, left jugular central venous catheter are all again not ed and are overlying appropriate positions. There are overlying cardiac leads. Airspace disease may b e increased somewhat in the lung bases. The hemidiaphragms are partially obscured. No evident pneumot horax. Heart size is likely stable and enlarged. The aorta is dense. IMPRESSION: Correlate for worsening pulmonary edema, pneumonia, ARDS.
--- NOTE | 2018-10-15 09:06 | P.PN ---
Subjective Progress Note Date: 10/15/18 Principal diagnosis: Aortoiliac occlusive disease s/p Aortobifemoral bypass and takeback for open thrombectomy of aortobifemoral bypass and bilateral femoral-popliteal arteries Patient seen and examined. Patient with worsening ventilation and per ICU team likely with PNA and ARDS. Urine output worsening and pressor requirement increasing. No changes to the peripheral examination per nursing staff. Nephrology contacted last night and started patient on lasix without improvement and said patient may need hemodialysis. Per nursing patient having high residuals over 300 from NGT. Objective - Vital Signs Vital signs: Vital Signs Temp 98.4 F 10/15/18 08:00 Pulse 102 H 10/15/18 08:47 Resp 32 H 10/15/18 08:00 BP 144/66 10/15/18 07:00 Pulse Ox 99 10/15/18 08:00 Intake & Output 10/14/18 10/15/18 10/15/18 18:59 06:59 18:59 Intake Total 2956.996 2359.695 252 Output Total 335 44 0 Balance 2621.996 2315.695 252 Weight 120.4 kg Intake: IV 1133 1269 212 Lactated Ringers 1,000 ml 1100 1200 200 @ 100 mls/hr IV .Q10H [facility] Rx#:[id number] Pressure bag 33 69 12 Intake, IV Titration 1593.996 655.695 Amount Cisatracurium 200 mg In 46.482 74.972 Sodium Chloride 0.9% 180 ml @ 2 MCG/KG/MIN 13.788 mls/hr IV .[id number] [facility] Rx #:[id number] Heparin Sod,Pork in 0.45% 109.959 204.960 NaCl 25,000 unit In 0.45 % NaCl 1 250ml.bag @ 18 UNITS/KG/HR 20.682 mls/hr IV .Q12H6M [facility] Rx#: [id number] Norepinephrine 32 mg In 95.653 75.763 Sodium Chloride 0.9% 218 ml @ 0.05 MCG/KG/MIN 2. 693 mls/hr IV .Q24H [facility] Rx#:[id number] Propofol 1,000 mg In 341.902 300 Empty Bag 1 bag @ Titrate IV .Q0M [facility] Rx#: [id number] Sodium Chloride 0.9% 1, 1000 000 ml @ 999 mls/hr IV . Q1H1M ONE Rx#:[id number] Tube Feeding 200 300 40 Other 30 135 Output: Urine 335 44 0 Other: Voiding Method Indwelling Catheter Indwelling Catheter # Voids 1 ABP, PAP, CO, CI - Last Documented Arterial Blood Pressure 144/54 - Exam Vented, sedated, paralyzed Abdomen is soft, obese Midline incision, and bilateral groin incisions with dressings in place. Right lower extremity is warm, with good capillary refill and +doppler signal to the DP. Left lower extremity is warm with good capillary refill and positive Doppler signal to the DP and PT Left lower extremity fasciotomy sites clean without sign of infection. - Labs CBC & Chem 7: 10/15/18 05:30 10/15/18 05:30 Labs: Abnormal Lab Results - Last 24 Hours (Table) 10/11/18 10/14/18 10/14/18 Range/Units 11:56 10:46 14:12 WBC (3.8-10.6) k/uL RBC (4.30-5.90) m/uL Hgb (13.0-17.5) gm/dL Hct (39.0-53.0) % Neutrophils # (Manual) (1.3-7.7) k/uL Lymphocytes # (Manual) (1.0-4.8) k/uL Nucleated RBCs (0-0) /100 WBC ABG pH 7.20 L (7.35-7.45) ABG pCO2 60 H (35-45) mmHg ABG pO2 (83-108) mmHg ABG HCO3 (21-25) mmol/L ABG Total CO2 25 H (19-24) mmol/L ABG O2 Saturation (94-97) % Sodium 134 L (137-145) mmol/L Potassium 5.3 H (3.5-5.1) mmol/L Carbon Dioxide (22-30) mmol/L BUN 37 H (9-20) mg/dL Creatinine 3.14 H (0.66-1.25) mg/dL Calcium 6.7 L (8.4-10.2) mg/dL Phosphorus (2.5-4.5) mg/dL Total Bilirubin (0.2-1.3) mg/dL AST (17-59) U/L ALT (21-72) U/L Total Protein (6.3-8.2) g/dL Albumin (3.5-5.0) g/dL Crossmatch See Detail 10/14/18 10/15/18 10/15/18 Range/Units 19:03 05:02 05:30 WBC (3.8-10.6) k/uL RBC (4.30-5.90) m/uL Hgb (13.0-17.5) gm/dL Hct (39.0-53.0) % Neutrophils # (Manual) (1.3-7.7) k/uL Lymphocytes # (Manual) (1.0-4.8) k/uL Nucleated RBCs (0-0) /100 WBC ABG pH 7.10 L* 7.16 L* (7.35-7.45) ABG pCO2 70 H 55 H (35-45) mmHg ABG pO2 75 L (83-108) mmHg ABG HCO3 19 L (21-25) mmol/L ABG Total CO2 (19-24) mmol/L ABG O2 Saturation 92.8 L (94-97) % Sodium 134 L (137-145) mmol/L Potassium 5.6 H (3.5-5.1) mmol/L Carbon Dioxide 18 L (22-30) mmol/L BUN 43 H (9-20) mg/dL Creatinine 3.89 H (0.66-1.25) mg/dL Calcium 6.5 L (8.4-10.2) mg/dL Phosphorus 11.2 H* (2.5-4.5) mg/dL Total Bilirubin 2.4 H (0.2-1.3) mg/dL AST 758 H (17-59) U/L ALT 155 H (21-72) U/L Total Protein 4.6 L (6.3-8.2) g/dL Albumin 2.2 L (3.5-5.0) g/dL Crossmatch 10/15/18 Range/Units 05:30 WBC 23.9 H (3.8-10.6) k/uL RBC 3.02 L (4.30-5.90) m/uL Hgb 9.2 L (13.0-17.5) gm/dL Hct 28.1 L (39.0-53.0) % Neutrophils # (Manual) 21.90 H (1.3-7.7) k/uL Lymphocytes # (Manual) 0.96 L (1.0-4.8) k/uL Nucleated RBCs 1 H (0-0) /100 WBC ABG pH (7.35-7.45) ABG pCO2 (35-45) mmHg ABG pO2 (83-108) mmHg ABG HCO3 (21-25) mmol/L ABG Total CO2 (19-24) mmol/L ABG O2 Saturation (94-97) % Sodium (137-145) mmol/L Potassium (3.5-5.1) mmol/L Carbon Dioxide (22-30) mmol/L BUN (9-20) mg/dL Creatinine (0.66-1.25) mg/dL Calcium (8.4-10.2) mg/dL Phosphorus (2.5-4.5) mg/dL Total Bilirubin (0.2-1.3) mg/dL AST (17-59) U/L ALT (21-72) U/L Total Protein (6.3-8.2) g/dL Albumin (3.5-5.0) g/dL Crossmatch Microbiology - Last 24 Hours (Table) 10/12/18 09:30 Gram Stain - Final Sputum Sputum Culture - Final Moraxella(branhamella) catarra Haemophilus influenzae Assessment and Plan Assessment: 1. POD 7 Aorto-bifemoral artery bypass secondary to aortoiliac occlusion 2. POD 3 Take back open thrombectomy of aorto-bifemoral bypass and bilateral lower extremities 3. POD 2 Take back open thrombectomy of the left femoral popliteal artery with patch angioplasty 4. Worsening Acute on chronic renal failure 5. Chronic nicotine dependance 6. Acute left lower extremity arterial occlusion 7. Acute respiratory failure, possible ARDS, PNA Plan: Continue supportive care and ICU management for ventilator. Continue IV heparin. Hold tube feeds for high residuals. Will place temporary HD catheter. Family updated and we will continue to support the patient at this time. prognosis is poor.
[2018-10-15] MEDS: ASPIRIN 81 MG PO SCH (09:46)
[2018-10-15] MEDS: GABAPENTIN 300 MG CAP PO SCH ×3 (09:46→22:46)
[2018-10-15] MEDS: PANTOPRAZOLE 40 MG TABLET PO SCH ×2 (09:46→22:45)
[2018-10-15] MEDS: CHLORHEXIDINE GLUCONATE 15 ML CUP MUCOUS MEM SCH ×2 (09:46→20:12)
--- NOTE | 2018-10-15 09:47 | P.PCN ---
Date of Procedure: 10/15/18 Preoperative Diagnosis: Acute renal failure Postoperative Diagnosis: same Procedure(s) Performed: right internal jugular vein ultrasound guided temporary hemodialysis catheter placement Anesthesia: none Surgeon: Tulio Multani Estimated Blood Loss (ml): 5 Pathology: none sent Condition: stable Disposition: ICU Indications for Procedure: 53 year old gentleman with worsening renal failure in need of hemodialysis Description of Procedure: The procedure was done in the ICU at bedside. The area of the right neck was prepped and draped in usual starile fashion. Utilizing ultrasound the right IJ was located and shown to be patent without thrombus. Using a multipurpose needle the IJ was accessed with dark non pulsatile blood obtained. A guidewire was placed followed by serial dilators and then a 16 cm Mahurkar temporary catheter. The ports were assessed for patency, deborah and flushed easily. The catheter was then sutured in place with nylon suture. The area was cleansed and dressings placed.
--- NOTE | 2018-10-15 09:57 | XR ---
EXAMINATION TYPE: XR chest 1V portable DATE OF EXAM: 10/15/2018 COMPARISON: Prior chest x-ray 10/15/2018 HISTORY: Hemodialysis catheter placement TECHNIQUE: Single frontal view of the chest is obtained. FINDINGS: There is been interval placement of a right jugular central venous catheter, distal tip is at the level of the superior vena cava. There is no pneumothorax or evident right-sided effusion. No other significant interval change is evident. IMPRESSION: No evident complication status post central venous catheter placement.
[2018-10-15] MEDS: MEROPENEM 1 GM in SODIUM CHLORIDE 0.9% 100 ML IVPB SCH (10:08)
--- NOTE | 2018-10-15 10:10 | US ---
Ultrasound-guided vascular access HISTORY: Hemodialysis catheter Ultrasound guidance supplied to the referring clinician. See dictated report from vascular surgery.
[2018-10-15] MEDS: FENOFIBRATE 160 MG TAB PO SCH (10:31)
[2018-10-15] MEDS: LEVOFLOXACIN 250MG-D5W PMX 250 MG in DEXTROSE/WATER 1 50ML.BAG IVPB SCH (11:15)
[2018-10-15] MEDS: CISATRACURIUM 200 MG in SODIUM CHLORIDE 0.9% 180 ML IV SCH ×2 (12:03→22:41)
[2018-10-15] MEDS: SODIUM CHLORIDE 0.9% 1,000 ML IV SCH ×2 (12:04→22:41)
[2018-10-15] MEDS: HEPARIN SOD,PORK IN 0.45% NACL 25,000 UNIT in 0.45% NACL 1 250ML.BAG IV SCH ×2 (12:05→22:46)
--- NOTE | 2018-10-15 12:54 | P.PN ---
Subjective Progress Note Date: 10/15/18 On 10/15/2018 patching the patient for a follow-up. Unfortunately the patient's condition remains extremely critical. The patient is doing poorly. He is currently sedated and paralyzed. He is on a combination of propofol and Nimbex. He is on a mechanical ventilator. I to drop the tidal volume as the patient is developing ARDS. On today's chest x-ray does also right lower lobe consolidation. He remains on assist control mode of ventilation. Tidal volumes of 400 with an FiO2 of 60% and a PEEP of 20 with a rate of 26. I drop the FiO2 down to 50% as the patient's blood gases showed a pH of 7.16 with a pCO2 of 55 and pO2 of 75 on 60% FiO2 and the pulse ox was in the order of 97-90%. Meanwh ile, his chest x-ray from today shows bilateral pulmonary infiltrates with worsening constellation of the right lower lobe./Pneumonia is suspected right lower lobe. I'm going to add Merrem to give this patient a broad-spectrum antibiotic coverage in combination with Levaquin. The patient is sedated and paralyzed for now and he is very much interested a mechanical ventilator. His peak airway pressures around 39-40. Static pressure is also elevated consistent with ARDS. The patient hemodynamically is doing poorly. Overnight the patient's pressor requirements gradually went up and currently is on 50 mics of norepinephrine infusion. His most recent systolic blood pressure 120. Doppler signals are present lower extremities bilaterally. The patient's fasciotomy site in the left lower extremity is dry clean and intact. White cell count is up to 23.9. The patient is afebrile. The patient has developed no significant urine output and the creatinine is on the rise. In fact today's creatinine is up to 3.89. The patient also has a bicarb of 18. Phosphorus level is at 11.2 and the findings on the case. I discussed this with the vascular surgeon and would proceed with a insertion of a dialysis catheter in preparation for dialysis at a later stage today. The patient was being fed and tidal nutrition via PEG tube. The patient was found to have a 50-50 residual today and based on that the enteral feeding was placed on hold for now. The patient is on IV heparin. The patient has progressive rise in the liver function test consistent with his shock state. Cardiac rhythm is still sinus. Neck fluid balance over the past 24 hours is positive 4 liters. Objective - Vital Signs Vital signs: Vital Signs Temp 98.4 F 10/15/18 08:00 Pulse 112 H 10/15/18 12:32 Resp 32 H 10/15/18 12:00 BP 144/66 10/15/18 07:00 Pulse Ox 93 L 10/15/18 11:00 Intake & Output 10/14/18 10/15/18 10/15/18 18:59 06:59 18:59 Intake Total 2956.996 2359.695 1198.603 Output Total 335 44 120 Balance 2621.996 2315.695 1078.603 Weight 120.4 kg Intake: IV 1133 1269 430 Lactated Ringers 1,000 ml 1100 1200 400 @ 100 mls/hr IV .Q10H [facility] Rx#:[id number] Pressure bag 33 69 30 Intake, IV Titration 1593.996 655.695 688.603 Amount Cisatracurium 200 mg In 46.482 74.972 79.051 Sodium Chloride 0.9% 180 ml @ 2 MCG/KG/MIN 13.788 mls/hr IV .[id number] [facility] Rx #:[id number] Heparin Sod,Pork in 0.45% 109.959 204.960 185.081 NaCl 25,000 unit In 0.45 % NaCl 1 250ml.bag @ 18 UNITS/KG/HR 20.682 mls/hr IV .Q12H6M [facility] Rx#: [id number] Norepinephrine 32 mg In 95.653 75.763 224.471 Sodium Chloride 0.9% 218 ml @ 0.05 MCG/KG/MIN 2. 693 mls/hr IV .Q24H [facility] Rx#:[id number] Propofol 1,000 mg In 341.902 300 100 Empty Bag 1 bag @ Titrate IV .Q0M [facility] Rx#: [id number] Sodium Chloride 0.9% 1, 100 000 ml @ 50 mls/hr IV . Q20H [facility] Rx#:[id number] Sodium Chloride 0.9% 1, 1000 000 ml @ 999 mls/hr IV . Q1H1M ONE Rx#:[id number] Tube Feeding 200 300 80 Other 30 135 Output: Urine 335 44 20 Emesis 100 Other: Voiding Method Indwelling Catheter Indwelling Catheter Indwelling Catheter # Voids 1 ABP, PAP, CO, CI - Last Documented Arterial Blood Pressure 144/60 - Exam GENERAL EXAM: Alert, pleasant, 53-year-old white male, intubated on a mechanical ventilator and the patient is sedated and paralyzed. The patient is intubated on a mechanical ventilator. The patient is very much synchronized with a mechanical ventilated note that he is also paralyzed. HEAD: Normocephalic/atraumatic. EYES: Normal reaction of pupils, equal size. Conjunctiva pink, sclera white. NOSE: Clear with pink turbinates. THROAT: No erythema or exudates. NECK: No masses, no JVD, no thyroid enlargement, no adenopathy. The patient has a left neck IJ triple lumen catheter in place. CHEST: No chest wall deformity. Symmetrical expansion. LUNGS: Equal air entry with basilar crackles CVS: Regular rate and rhythm, normal S1 and S2, no gallops, no murmurs, no rubs ABDOMEN: Soft, nontender. No hepatosplenomegaly, normal bowel sounds, no guarding or rigidity. Midabdominal and Bilateral groin incisions, left groin incision with wound VAC in place. EXTREMITIES: No clubbing, no edema, no cyanosis, post tibial pulses palpable, no palpable pedal pulses and upper and lower extremities. The patient has a DPI over his left ankle. The patient also has a patient to ms site is open and very much dry clean and intact without any purulent discharge in his left lower extremity. Noted pulses are only obtained by Doppler in lower extremities bilaterally especially in the feet. MUSCULOSKELETAL: Muscle strength and tone normal. SPINE: No scoliosis or deformity SKIN: No rashes, , DPI in the left ankle area CENTRAL NERVOUS SYSTEM: Unable to perform as the patient is sedated and paralyzed for now PSYCHIATRIC: Unable to perform - Labs CBC & Chem 7: 10/15/18 05:30 10/15/18 05:30 Labs: Abnormal Lab Results - Last 24 Hours (Table) 10/11/18 10/14/18 10/14/18 Range/Units 11:56 14:12 19:03 WBC (3.8-10.6) k/uL RBC (4.30-5.90) m/uL Hgb (13.0-17.5) gm/dL Hct (39.0-53.0) % Neutrophils # (Manual) (1.3-7.7) k/uL Lymphocytes # (Manual) (1.0-4.8) k/uL Nucleated RBCs (0-0) /100 WBC ABG pH 7.10 L* (7.35-7.45) ABG pCO2 70 H (35-45) mmHg ABG pO2 (83-108) mmHg ABG HCO3 (21-25) mmol/L ABG O2 Saturation (94-97) % Sodium 134 L (137-145) mmol/L Potassium 5.3 H (3.5-5.1) mmol/L Carbon Dioxide (22-30) mmol/L BUN 37 H (9-20) mg/dL Creatinine 3.14 H (0.66-1.25) mg/dL Calcium 6.7 L (8.4-10.2) mg/dL Phosphorus (2.5-4.5) mg/dL Total Bilirubin (0.2-1.3) mg/dL AST (17-59) U/L ALT (21-72) U/L Total Protein (6.3-8.2) g/dL Albumin (3.5-5.0) g/dL Crossmatch See Detail 10/15/18 10/15/18 10/15/18 Range/Units 05:02 05:30 05:30 WBC 23.9 H (3.8-10.6) k/uL RBC 3.02 L (4.30-5.90) m/uL Hgb 9.2 L (13.0-17.5) gm/dL Hct 28.1 L (39.0-53.0) % Neutrophils # (Manual) 21.90 H (1.3-7.7) k/uL Lymphocytes # (Manual) 0.96 L (1.0-4.8) k/uL Nucleated RBCs 1 H (0-0) /100 WBC ABG pH 7.16 L* (7.35-7.45) ABG pCO2 55 H (35-45) mmHg ABG pO2 75 L (83-108) mmHg ABG HCO3 19 L (21-25) mmol/L ABG O2 Saturation 92.8 L (94-97) % Sodium 134 L (137-145) mmol/L Potassium 5.6 H (3.5-5.1) mmol/L Carbon Dioxide 18 L (22-30) mmol/L BUN 43 H (9-20) mg/dL Creatinine 3.89 H (0.66-1.25) mg/dL Calcium 6.5 L (8.4-10.2) mg/dL Phosphorus 11.2 H* (2.5-4.5) mg/dL Total Bilirubin 2.4 H (0.2-1.3) mg/dL AST 758 H (17-59) U/L ALT 155 H (21-72) U/L Total Protein 4.6 L (6.3-8.2) g/dL Albumin 2.2 L (3.5-5.0) g/dL Crossmatch Microbiology - Last 24 Hours (Table) 10/12/18 09:30 Gram Stain - Final Sputum Sputum Culture - Final Moraxella(branhamella) catarra Haemophilus influenzae Assessment and Plan Plan: 1 peripheral vascular disease, severe and the patient is postop for a aorto bifemoral bypass surgery and the surgery was done on 10/07/2018, postop day number 8 mild the patient is currently on aspirin and IV heparin. 2 acute ischemic limbs postop and the patient underwent a emergent thrombectomy on the right on 10/11/2018 and on the left on 10/13/2018. 3 acute ventilator-dependent respiratory failure secondary to above, consider ARDS, currently sedated and paralyzed with Nimbex to maintain synchrony with the mechanical ventilator. There is also development of a right lower lobe pneumonia as the patient was cultured there Moraxella catarrhalis and Haemophilus and right lower lobe pneumonia complicating his respiratory failure is also suspected. The patient was started on Levaquin yesterday and antibiotics will be further broaden. 3 shock, consider septic shock as the patient's white cell count is on the rise and there is development of a right lower lobe consolidation in addition to progressive drop in his blood pressure and currently the patient is on 60 mics of norepinephrine infusion and this being gradually weaned off. Antibiotics have a modified and the patient is in a positive fluid balance. The patient was placed on a combination of Levaquin and metoprolol. Echocardiogram is also to follow.. 5 acute kidney injury, secondary to contrast, hypotension, pressor use. Rule out underlying ATN. Urine output remains low and the patient is not producing any urine output this morning. The patient is a significant amount of fluid balance. Electrolytes are abnormal and the patient developed acidosis and hyperphosphatemia. We are going to insert a dialysis catheter and initiate dialysis if hemodynamically tolerable. 6 aortic dissection, please refer to the CAT scan of the abdomen report 7 chronic kidney disease with a baseline creatinine in the range of 1.9-2 8 chronic back pain 9 hypertension, history of 10 hyperlipidemia 11 obesity with a BMI of 39.3 12 Moraxella catarrhalis and Haemophilus influenza was in the sputum, consider superinfection/pneumonia. 13 Deep tissue injury to his left heel. Plan Keep the patient sedated and paralyzed. Keep the patient on mechanical ventilator. The tidal volume to 400 for permissive hypercapnic ventilation. The FiO2 down to 50%. Hold tube feeds for the next 24 hours. Dialysis cath will be inserted and the patient will be started on dialysis if hemodynamically possible. A lower lobe efficiency dialysis may be of value. The patient's meanwhile will be kept on the same vent setting. FiO2 has been drop down to 50%. No further room for weaning at this point in time. Broaden antibiotic coverage to include a combination of Merrem and Levaquin. Add vasopressin if unable to wean down the levo fed. Monitor the positive lower extremities. Keep the tube feeds on hold is only the patient is having high residuals. Continue to follow make further recommendations based on overall progress. Condition is critical. Case was discussed with vascular surgery and nephrology. This elevation was done more than 30 minutes. Time with Patient: Greater than 30
--- NOTE | 2018-10-15 13:02 | CDI ---
hypovolemic shock Documentation Clarification Form Date: 10/15/2018 12:11:23 PM From: Bobbi Cameron RN CCDS Admit Date: 10/07/2018 9:41:00 AM Patient Name: Ralph Agarwal Visit Number: [id number] Discharge Date: ATTENTION: The Clinical Documentation Specialists (CDI) and [facility] Coding Staff appreciate your assistance in clarifying documentation. Please respond to the clarification below the line at the bottom and electronically sign. The CDI & [facility] Coding staff will review the response and follow-up if needed. Please note: Queries are made part of the Legal Health Record. If you have any questions, please contact the author of this message via ITS. Dr. Tulio Multani Acute kidney injury, secondary to contrast, hypotension, pressor use. Documented in Critical Care progress note 10/14/2018 Patient history/risk factors: 53 year old male presents to [facility] for elective arotobifemoral Followed by two additional procedures. Medical history of HTN, Hyperlipidemia, CKD unknown stage, OA, 30yr pack smoking history. Clinical Indicators: Procedure dated 10/07/2018 estimated blood loss 20ml Procedure dated 10/11/2018 estimated blood loss 1,200ml Procedure dated 10/13/2018 estimated blood loss 20ml 10/07/2018 Hgb 11.8; 10/11/2018 Hgb 6.7; 10/12/2018 Hgb 10.1; 10/13/2018 Hgb 8.8; 10/15/2018 Hg 9.2; Vitals: 10/13/2018 - bp 79/51 Hr 100 RR 20 02 saturation 88% Treatment: 5 units prbc; Norepinephrine; 3.5L 0.9ns iv fluid bolus while in procedures 10/07/2018 1,800 ml of iv fluids 10/11/2018 4,700 ml of iv fluids 10/13/2018 1,500 ml of iv fluids; In your professional opinion, can you please specify if the hypotension was due to? * Hypovolemic Shock * Hypotension due to other etiology (please specify) * Other, please specify * Unable to determine (Last Revision: February 2017) MTDD
--- NOTE | 2018-10-15 13:08 | PN ---
PROGRESS NOTE CHIEF COMPLAINT: Aortofemoral occlusive disease. HISTORY OF PRESENT ILLNESS: This gentleman remains on ventilator. Peripheral perfusion seems adequate, however. REVIEW OF SYSTEMS: Cannot be obtained. PHYSICAL EXAMINATION: On physical exam, vital signs are normal. Breath sounds are heard on both sides with occasional scattered rhonchi. Cardiac exam is normal sinus rhythm. Dressing is dry and toes are well perfused. IMPRESSION: 1. Status post aortofemoral bypass. 2. Chronic obstructive pulmonary disease. 3. Anemia. PLAN: Continue to follow until he is able to be extubated and out of ICU. MMODL / IJN: [id number] /
[2018-10-15] MEDS: SODIUM CHLORIDE 0.9% 150 ML with VASOPRESSIN 60 UNIT IV SCH ×2 (13:37)
--- NOTE | 2018-10-15 15:23 | CONS ---
CONSULTATION REASON FOR CONSULT: Renal failure. HISTORY OF PRESENT ILLNESS: The patient is a 53-year-old male who was admitted for aortobifemoral bypass graft, which was done on 10/07/2018 with right common femoral thromboendarterectomy. Patient has severe underlying aortoiliac occlusive disease with lower extremity claudications prior to admission. The patient had developed lower extremity occlusion and was taken back to the OR twice. His urine output started to drop yesterday and currently is at 0 mL/hour since last night. Serum creatinine is at 3.89 mg/dL. On initial admission it was 1.97 on 10/08/2018 with a previous creatinine in September and August of 2018 of 1.4 and 1.3 mg/dL. Patient is currently maintained on Levophed close to 60 mcg. His potassium is running high at 5.6 mEq/L. The patient does have peripheral pulses. He is maintained on Nimbex. He remains on the vent. The patient is also on IV fluids at about 100 mL an hour. PAST MEDICAL HISTORY: Hypertension, osteoarthritis, peripheral vascular disease, hypothyroidism. PAST SURGICAL HISTORY: None. SOCIAL HISTORY: Positive for smoking. No drug abuse or alcohol abuse. MEDICATIONS: At home prior to admission included Motrin, Zestril, Norvasc, vitamin D, Prilosec, aspirin. ALLERGIES: Include PENICILLIN, which caused swelling. REVIEW OF SYSTEMS: Negative for fevers, chills. No GI bleed going on. Tube feedings were held as the patient's abdomen was distended and he was not tolerating his tube feeds. He remains on the vent. On examination, currently patient is sedated. He is on the vent. Blood pressure this morning was 144/58, heart rate of 109 per minute patient is afebrile. Examination of the heart S1, S2. Examination of the lungs, bilateral breath sounds are heard. Abdomen is soft, distended. Examination of the extremities shows edema 1+ bilaterally upper and lower extremities, peripheral pulses are felt bilaterally. VISUAL DISPLAY ASSOCIATE exam cannot be performed. LABS: Show sodium 134, potassium 5.6, BUN 43, serum creatinine 3.89, phosphorus 11.2, AST 768, ALT 165. UA on October 12, shows trace protein, moderate blood. Hyaline cast 75. ASSESSMENT: 1. Acute kidney injury, acute tubular necrosis, currently oliguric, secondary to dye and hemodynamic instability. Given the fact that patient has no urine output and increasing potassium with underlying metabolic acidosis, I will proceed with renal replacement therapy. Currently, patient is maintained on high amount of Levophed. He has a good blood pressure with systolic of 130 mmHg. Hopefully we will be able to dialyze him. We will use a small dialyzer and plan for about 2.5 hours of treatment today. No ultrafiltration. 2. Peripheral vascular disease and atherosclerosis status post aortobifemoral graft. 3. Bilateral lower extremity occlusion, status post thrombectomy x2 postoperatively. 4. Hyperphosphatemia from renal failure. 5. Metabolic acidosis secondary to renal failure. 6. Hyperkalemia associated with acute kidney injury. 7. Anemia. No active bleeding noted at this time. PLAN: Hemodialysis today, will likely repeat in a.m. Change nephro. Once patient is tolerating tube feeding. we can add phosphate binders. Overall prognosis is guarded. Thank you for this consultation. Will continue to follow the patient. MMODL / IJN: [id number] /
[2018-10-15 17:18] LABS: Hepatitis B Surface AB- Quant 3.5 mIU/mL
[2018-10-15 18:17] LABS: Glucose,Whole Blood 103 mg/dL (75-99)
--- NOTE | 2018-10-15 19:12 | ECHOF ---
Referral Reason:hypotension MEASUREMENTS -------- HEIGHT: 172.7 cm WEIGHT: 120.2 kg BP: 144/66 IVSd: 1.2 cm (0.6 - 1.1) LVIDd: 3.5 cm (3.9 - 5.3) LVPWd: 1.5 cm (0.6 - 1.1) IVSs: 1.6 cm LVIDs: 1.6 cm LVPWs: 1.6 cm FINDINGS -------- Resting tachycardia (HR>100bpm). Limited Study Pt. on a vent. Unable to obtain measurements. The left ventricular size is normal. There is mild concentric left ventricular hypertrophy. Overa ll left ventricular systolic function is normal with, an EF between 60 - 65 %. The RV was not well visualized. The left atrium was not well visualized. The right atrium was not well visualized. Lumason used The aortic valve was not well visualized. The mitral valve was not well visualized. The tricuspid valve was not well visualized. The pulmonic valve was not well visualized. CONCLUSIONS -------- 1. Resting tachycardia (HR>100bpm). 2. Limited Study. Unable to obtain measurements. 3. Pt. on a vent. 4. The left ventricular size is normal. 5. There is mild concentric left ventricular hypertrophy. 6. Overall left ventricular systolic function is normal with, an EF between 60 - 65 %. 7. The RV was not well visualized. 8. The left atrium was not well visualized. 9. The right atrium was not well visualized. 10. Lumason used 11. The aortic valve was not well visualized. 12. The mitral valve was not well visualized. 13. The tricuspid valve was not well visualized. 14. The pulmonic valve was not well visualized. PROCESS DEVELOPMENT TECHNICIAN: Marla Lauren, [facility]
[2018-10-15] MEDS: MEROPENEM 500 MG in SODIUM CHLORIDE 0.9% 50 ML IVPB SCH (22:45)
[2018-10-16] MEDS: HYDROmorphone 1 MG/ML 1 ML SYRINGE IVP SCH ×7 (00:20→23:51)
[2018-10-16] MEDS: ARTIFICIAL TEARS-HYPROMELLOSE DROPS 15 ML BTL BOTH EYES SCH ×7 (00:20→23:52)
[2018-10-16] MEDS: PROPOFOL 1,000 MG in EMPTY BAG 1 BAG IV SCH ×9 (02:18→23:53)
[2018-10-16] MEDS: NOREPINEPHRINE 32 MG in SODIUM CHLORIDE 0.9% 218 ML IV SCH (04:18)
[2018-10-16 05:16] LABS: ABG Base Excess -7.6 mmol/L; ABG HCO3 21 mmol/L (21-25); ABG Oxygen Saturation 93.8 % (94-97); ABG PCO2 55 mmHg (35-45); ABG PO2 81 mmHg (83-108); ABG TCO2 22 mmol/L (19-24); Allen Test Performed? Yes
[2018-10-16 06:24] LABS: HCT 26.3 % (39.0-53.0); HGB 8.5 gm/dL (13.0-17.5); Hypochromasia Slight; MCHC 32.5 g/dL (31.0-37.0); MCV 92.4 fL (80.0-100.0); Mean Platelet Volume 7.1; Platelet Count 302 k/uL (150-450); RBC 2.84 m/uL (4.30-5.90); RDW 15.6 % (11.5-15.5); WBC 19.9 k/uL (3.8-10.6)
[2018-10-16 06:41] LABS: Calcium 6.7 mg/dL (8.4-10.2); Magnesium 2.1 mg/dL (1.6-2.3); Potassium 5.1 mmol/L (3.5-5.1)
[2018-10-16 06:55] LABS: Phosphorus 10.7 mg/dL (2.5-4.5)
[2018-10-16 07:45] LABS: Band Neutrophils % 2 %; Neutrophils % (M) 91 %; Nucleated Red Blood Cells 0 /100 WBC (0-0); Total Cells Counted 100
[2018-10-16] MEDS: IPRATROPIUM-ALBUTEROL 3 ML NEB INHALATION SCH ×4 (07:59→20:15)
--- NOTE | 2018-10-16 08:56 | XR ---
EXAMINATION TYPE: XR chest 1V portable DATE OF EXAM: 10/16/2018 COMPARISON: 10/15/2018 HISTORY: Shortness of breath TECHNIQUE: Single frontal view of the chest is obtained. FINDINGS: Hemodialysis catheter, ET and NG tube are stable. Distal margin of the NG tube not well se en due to technique. Left-sided central line seen. Cardiomegaly with diffuse interstitial pattern and bilateral pleural effusions noted. Bilateral lower lobe consolidation. IMPRESSION: Stable x-ray correlate for CHF otherwise consider pneumonia.
[2018-10-16] MEDS: HEPARIN SOD,PORK IN 0.45% NACL 25,000 UNIT in 0.45% NACL 1 250ML.BAG IV SCH ×2 (10:23→21:24)
[2018-10-16] MEDS: FENOFIBRATE 160 MG TAB PO SCH (10:25)
[2018-10-16] MEDS: CHLORHEXIDINE GLUCONATE 15 ML CUP MUCOUS MEM SCH ×2 (10:25→21:24)
[2018-10-16] MEDS: ASPIRIN 81 MG PO SCH (10:25)
[2018-10-16] MEDS: MEROPENEM 1 GM in SODIUM CHLORIDE 0.9% 100 ML IVPB SCH (10:26)
[2018-10-16] MEDS: GABAPENTIN 300 MG CAP PO SCH ×3 (10:26→21:26)
--- NOTE | 2018-10-16 10:42 | P.PN ---
Subjective Progress Note Date: 10/16/18 Principal diagnosis: Aortoiliac occlusive disease s/p Aortobifemoral bypass and takeback for open thrombectomy of aortobifemoral bypass and bilateral femoral-popliteal arteries Patient seen and examined. Patient slightly improved today. Currently getting hemodialysis without any issues with catheter. Pressors are being weaned and patient will be weaned of paralytic and sedation. No issues currently with lower extremity flow per nursing. Still minimal urine output. No bowel function at this time. Objective - Vital Signs Vital signs: Vital Signs Temp 97.7 F 10/16/18 04:30 Pulse 102 H 10/16/18 09:00 Resp 32 H 10/16/18 09:00 BP 142/57 10/16/18 04:00 Pulse Ox 95 10/16/18 09:00 Intake & Output 10/15/18 10/16/18 10/16/18 18:59 06:59 18:59 Intake Total 3872.422 3655.614 676.791 Output Total 130 865 0 Balance 1852.399 598.614 676.791 Weight 125.9 kg 125.9 kg Intake: IV 478 647.5 159 Lactated Ringers 1,000 ml 400 @ 100 mls/hr IV .Q10H [facility] Rx#:[id number] Pressure bag 78 48 9 Sodium Chloride 0.9% 1, 550 150 000 ml @ 50 mls/hr IV . Q20H [facility] Rx#:[id number] Sodium Chloride 0.9% 150 49.5 ml @ 0.03 UNITS/MIN 4.59 mls/hr IV .Q24H [facility] with Vasopressin 60 unit Rx#: [id number] Intake, IV Titration 1424.399 771.114 517.791 Amount Cisatracurium 200 mg In 79.051 Sodium Chloride 0.9% 180 ml @ 2 MCG/KG/MIN 13.788 mls/hr IV .[id number] [facility] Rx #:[id number] Heparin Sod,Pork in 0.45% 185.081 241.817 250 NaCl 25,000 unit In 0.45 % NaCl 1 250ml.bag @ 18 UNITS/KG/HR 20.682 mls/hr IV .Q12H6M [facility] Rx#: [id number] Meropenem 1 gm In Sodium 100 100 Chloride 0.9% 100 ml @ 200 mls/hr IVPB Q8HR [facility] Rx#:[id number] Meropenem 500 mg In 100 Sodium Chloride 0.9% 50 ml @ 100 mls/hr IVPB Q12HR [facility] Rx#:[id number] Norepinephrine 32 mg In 337.317 139.137 Sodium Chloride 0.9% 218 ml @ 0.05 MCG/KG/MIN 2. 693 mls/hr IV .Q24H [facility] Rx#:[id number] Propofol 1,000 mg In 200 290.160 167.791 Empty Bag 1 bag @ Titrate IV .Q0M [facility] Rx#: [id number] Sodium Chloride 0.9% 1, 500 000 ml @ 50 mls/hr IV . Q20H [facility] Rx#:[id number] Sodium Chloride 0.9% 150 22.95 ml @ 0.03 UNITS/MIN 4.59 mls/hr IV .Q24H [facility] with Vasopressin 60 unit Rx#: [id number] Tube Feeding 80 45 Output: Gastric Drainage 850 Urine 30 15 0 Emesis 100 Hemodialysis 0 Other: Voiding Method Indwelling Catheter Indwelling Catheter Indwelling Catheter ABP, PAP, CO, CI - Last Documented Arterial Blood Pressure 125/54 - Exam Vented, sedated, paralyzed Abdomen is soft, obese Midline incision, and bilateral groin incisions with dressings in place. Right lower extremity is warm, with brisk capillary refill and +doppler signal to the DP. Left lower extremity is warm with brisk capillary refill and positive Doppler signal to the DP Left lower extremity fasciotomy sites clean without sign of infection. - Labs CBC & Chem 7: 10/16/18 05:50 10/16/18 05:50 Labs: Abnormal Lab Results - Last 24 Hours (Table) 10/15/18 10/16/18 10/16/18 Range/Units 18:14 05:10 05:50 WBC 19.9 H (3.8-10.6) k/uL RBC 2.84 L (4.30-5.90) m/uL Hgb 8.5 L (13.0-17.5) gm/dL Hct 26.3 L (39.0-53.0) % RDW 15.6 H (11.5-15.5) % Neutrophils # (Manual) 18.50 H (1.3-7.7) k/uL Lymphocytes # (Manual) 0.60 L (1.0-4.8) k/uL ABG pH 7.18 L* (7.35-7.45) ABG pCO2 55 H (35-45) mmHg ABG pO2 81 L (83-108) mmHg ABG O2 Saturation 93.8 L (94-97) % Sodium (137-145) mmol/L Carbon Dioxide (22-30) mmol/L BUN (9-20) mg/dL Creatinine (0.66-1.25) mg/dL POC Glucose (mg/dL) 103 H (75-99) mg/dL Calcium (8.4-10.2) mg/dL Phosphorus (2.5-4.5) mg/dL 10/16/18 Range/Units 05:50 WBC (3.8-10.6) k/uL RBC (4.30-5.90) m/uL Hgb (13.0-17.5) gm/dL Hct (39.0-53.0) % RDW (11.5-15.5) % Neutrophils # (Manual) (1.3-7.7) k/uL Lymphocytes # (Manual) (1.0-4.8) k/uL ABG pH (7.35-7.45) ABG pCO2 (35-45) mmHg ABG pO2 (83-108) mmHg ABG O2 Saturation (94-97) % Sodium 136 L (137-145) mmol/L Carbon Dioxide 19 L (22-30) mmol/L BUN 39 H (9-20) mg/dL Creatinine 4.20 H (0.66-1.25) mg/dL POC Glucose (mg/dL) (75-99) mg/dL Calcium 6.7 L (8.4-10.2) mg/dL Phosphorus 10.7 H* (2.5-4.5) mg/dL Assessment and Plan Assessment: 1. POD 8 Aorto-bifemoral artery bypass secondary to aortoiliac occlusion 2. POD 4 Take back open thrombectomy of aorto-bifemoral bypass and bilateral lower extremities 3. POD 3 Take back open thrombectomy of the left femoral popliteal artery with patch angioplasty 4. Worsening Acute on chronic renal failure 5. Chronic nicotine dependance 6. Acute left lower extremity arterial occlusion 7. Acute respiratory failure, possible ARDS, PNA Plan: Continue supportive care and ICU management for ventilator. Continue IV heparin. TFs on hold for residuals, discussed with nursing staff and per ICU team will start TPN prognosis is poor.
[2018-10-16] MEDS ORDERED: [UNRECOGNIZED DRUG - REMARK] IV ONE ×6 (11:00)
[2018-10-16] MEDS: MEROPENEM 500 MG in SODIUM CHLORIDE 0.9% 50 ML IVPB SCH ×2 (12:57→21:26)
--- NOTE | 2018-10-16 14:38 | P.PN ---
Subjective Progress Note Date: 10/16/18 On 10/16/2004 units in this patient in follow-up. The patient is sedated and paralyzed on today's evaluation. He is on propofol at 50 mics and he is on Nimbex drip and his receiving 1 g per KG of Nimbex infusion. He is very well sedated and paralyzed for now. He remains on a mechanical ventilator. His chest x-ray showed diffuse breath and pulmonary infiltrates an extensive right lower lobe consolidation. The findings are typical of pneumonia/ARDS. He is currently on IV Merrem. He is on low tidal volume ventilation. He is on the tidal volume of 400 with a rate of 32 and FiO2 of 50% and PEEP of 20. Morning blood gas showed a pH of 7.18 with a pCO2 of 55 and pO2 of 81. The patient has no significant orotracheal secretions. He is asynchronous a mechanical ventilator. Meanwhile, hemodynamically is doing slightly better compared to yesterday. After requiring massive amounts of pressors, rule out able to wean down the norepinephrine infusion on 2 20 mcg/m and the patient is also started on vasopressin physiologic dose. Currently he is maintaining his pressure with adequate pulses obtained by Doppler signal in lower extremities bilaterally. He remains on IV heparin regarding his vascular intervention to the lower extremities. PTT has been checked and is therapeutic for now. Also, the patient is an acute kidney injury. The patient has not produced any urine output. He underwent a session of dialysis yesterday and a second session was done today with ultrafiltration of 500 mL of fluid. Note that following his dialysis yesterday his hemodynamics in general improved. He has a right IJ dialysis catheter left IJ triple-lumen catheter both of them are in place. Echocardiogram was done yesterday and the patient is a preserved LV function with an ejection fraction of 665%. The patient underwent aortobifem bypass surgery following that the patient had right femoral thrombectomy and left femoral thrombectomy. He also has a left calf patient to me that was done by vascular surgery which has demonstrated some ongoing weeping. Another issue is inability to tolerate tube feeds. The patient was receiving vital high protein and the patient had very high residuals. Acute febrile placed on hold. Bowel sounds are hypoactive. Sedation with dietitian was done and the patient will be started on TPN for nutritional support. Objective - Vital Signs Vital signs: Vital Signs Temp 97.8 F 10/16/18 13:16 Pulse 106 H 10/16/18 13:16 Resp 30 H 10/16/18 13:16 BP 135/61 10/16/18 13:16 Pulse Ox 96 10/16/18 12:30 Intake & Output 10/15/18 10/16/18 10/16/18 18:59 06:59 18:59 Intake Total 6499.006 8427.614 974.222 Output Total 130 865 500 Balance 1852.399 598.614 474.222 Weight 125.9 kg 125.9 kg Intake: IV 478 647.5 185 Lactated Ringers 1,000 ml 400 @ 100 mls/hr IV .Q10H [facility] Rx#:[id number] Pressure bag 78 48 15 Sodium Chloride 0.9% 1, 550 170 000 ml @ 50 mls/hr IV . Q20H [facility] Rx#:[id number] Sodium Chloride 0.9% 150 49.5 ml @ 0.03 UNITS/MIN 4.59 mls/hr IV .Q24H [facility] with Vasopressin 60 unit Rx#: [id number] Intake, IV Titration 1424.399 771.114 789.222 Amount Cisatracurium 200 mg In 79.051 171.431 Sodium Chloride 0.9% 180 ml @ 2 MCG/KG/MIN 13.788 mls/hr IV .[id number] [facility] Rx #:[id number] Heparin Sod,Pork in 0.45% 185.081 241.817 250 NaCl 25,000 unit In 0.45 % NaCl 1 250ml.bag @ 18 UNITS/KG/HR 20.682 mls/hr IV .Q12H6M [facility] Rx#: [id number] Meropenem 1 gm In Sodium 100 100 Chloride 0.9% 100 ml @ 200 mls/hr IVPB Q8HR [facility] Rx#:[id number] Meropenem 500 mg In 100 Sodium Chloride 0.9% 50 ml @ 100 mls/hr IVPB Q12HR [facility] Rx#:[id number] Norepinephrine 32 mg In 337.317 139.137 Sodium Chloride 0.9% 218 ml @ 0.05 MCG/KG/MIN 2. 693 mls/hr IV .Q24H [facility] Rx#:[id number] Propofol 1,000 mg In 200 290.160 267.791 Empty Bag 1 bag @ Titrate IV .Q0M [facility] Rx#: [id number] Sodium Chloride 0.9% 1, 500 000 ml @ 50 mls/hr IV . Q20H [facility] Rx#:[id number] Sodium Chloride 0.9% 150 22.95 ml @ 0.03 UNITS/MIN 4.59 mls/hr IV .Q24H [facility] with Vasopressin 60 unit Rx#: [id number] Tube Feeding 80 45 Output: Gastric Drainage 850 Urine 30 15 0 Emesis 100 Hemodialysis 0 500 Other: Voiding Method Indwelling Catheter Indwelling Catheter Indwelling Catheter ABP, PAP, CO, CI - Last Documented Arterial Blood Pressure 132/60 - Exam GENERAL EXAM: Alert, pleasant, 53-year-old white male, intubated on a mechanical ventilator and the patient is sedated and paralyzed. The patient is intubated on a mechanical ventilator. The patient is very much synchronized with a mechanical ventilated note that he is also paralyzed. HEAD: Normocephalic/atraumatic. EYES: Normal reaction of pupils, equal size. Conjunctiva pink, sclera white. NOSE: Clear with pink turbinates. THROAT: No erythema or exudates. NECK: No masses, no JVD, no thyroid enlargement, no adenopathy. The patient has a left neck IJ triple lumen catheter in place. The patient has a right IJ dialysis catheter and exit site is clean. CHEST: No chest wall deformity. Symmetrical expansion. LUNGS: Equal air entry with basilar crackles CVS: Regular rate and rhythm, normal S1 and S2, no gallops, no murmurs, no rubs ABDOMEN: Soft, nontender. No hepatosplenomegaly, normal bowel sounds, no guarding or rigidity. Midabdominal and Bilateral groin incisions, left groin incision with wound VAC in place. EXTREMITIES: No clubbing, no edema, no cyanosis, post tibial pulses palpable, no palpable pedal pulses and upper and lower extremities. The patient has a DPI over his left ankle. The patient also has a patient to me site is open and very much dry clean and intact without any purulent discharge in his left lower extremity. Noted pulses are only obtained by Doppler in lower extremities bilaterally especially in the feet. MUSCULOSKELETAL: Muscle strength cannot be assessed. The patient has a left fascia geronimo me at the level of the callus with some ongoing drainage and weeping. SPINE: No scoliosis or deformity SKIN: No rashes, , DPI in the left ankle area CENTRAL NERVOUS SYSTEM: Unable to perform as the patient is sedated and paralyzed for now PSYCHIATRIC: Unable to perform - Labs CBC & Chem 7: 10/16/18 05:50 10/16/18 05:50 Labs: Abnormal Lab Results - Last 24 Hours (Table) 10/15/18 10/16/18 10/16/18 Range/Units 18:14 05:10 05:50 WBC 19.9 H (3.8-10.6) k/uL RBC 2.84 L (4.30-5.90) m/uL Hgb 8.5 L (13.0-17.5) gm/dL Hct 26.3 L (39.0-53.0) % RDW 15.6 H (11.5-15.5) % Neutrophils # (Manual) 18.50 H (1.3-7.7) k/uL Lymphocytes # (Manual) 0.60 L (1.0-4.8) k/uL ABG pH 7.18 L* (7.35-7.45) ABG pCO2 55 H (35-45) mmHg ABG pO2 81 L (83-108) mmHg ABG O2 Saturation 93.8 L (94-97) % Sodium (137-145) mmol/L Carbon Dioxide (22-30) mmol/L BUN (9-20) mg/dL Creatinine (0.66-1.25) mg/dL POC Glucose (mg/dL) 103 H (75-99) mg/dL Calcium (8.4-10.2) mg/dL Phosphorus (2.5-4.5) mg/dL 10/16/18 Range/Units 05:50 WBC (3.8-10.6) k/uL RBC (4.30-5.90) m/uL Hgb (13.0-17.5) gm/dL Hct (39.0-53.0) % RDW (11.5-15.5) % Neutrophils # (Manual) (1.3-7.7) k/uL Lymphocytes # (Manual) (1.0-4.8) k/uL ABG pH (7.35-7.45) ABG pCO2 (35-45) mmHg ABG pO2 (83-108) mmHg ABG O2 Saturation (94-97) % Sodium 136 L (137-145) mmol/L Carbon Dioxide 19 L (22-30) mmol/L BUN 39 H (9-20) mg/dL Creatinine 4.20 H (0.66-1.25) mg/dL POC Glucose (mg/dL) (75-99) mg/dL Calcium 6.7 L (8.4-10.2) mg/dL Phosphorus 10.7 H* (2.5-4.5) mg/dL Assessment and Plan Plan: 1 peripheral vascular disease, severe and the patient is postop for a aorto bifemoral bypass surgery and the surgery was done on 10/07/2018, postop day number 9 the patient is currently on aspirin and IV heparin. The patient had a complicated course with pneumonia/ARDS/acute kidney injury and the patient is currently intubated on a mechanical ventilator and the patient is undergoing dialysis. Hemodynamically the patient is a shock and pressor dependent. 2 acute ischemic limbs postop and the patient underwent a emergent thrombectomy on the right on 10/11/2018 and on the left on 10/13/2018. 3 acute ventilator-dependent respiratory failure secondary to above, consider ARDS, currently sedated and paralyzed with Nimbex to maintain synchrony with the mechanical ventilator. There is also development of a right lower lobe pneumonia as the patient was cultured there Moraxella catarrhalis and Haemophilus and right lower lobe pneumonia complicating his respiratory failure is also suspected. The patient is currently receiving meropenem. 3 shock, consider septic shock and the patient is currently on a combination of vasopressin and lower dose norepinephrine infusion. The patient is also on Merrem. The patient has been adequately resuscitated IV fluids. The patient is on a combination of pressors yet the norepinephrine infusion is being gradually weaned down and earlier this morning the patient was running at 20 mics and currently to 14 mics. 5 acute kidney injury, secondary to contrast, hypotension, pressor use. Rule out underlying ATN. The patient is currently on hemodialysis. First session was done yesterday and second session was done today with ultrafiltration of 500 mL. 6 aortic dissection, please refer to the CAT scan of the abdomen report 7 chronic kidney disease with a baseline creatinine in the range of 1.9-2 8 chronic back pain 9 hypertension, history of 10 hyperlipidemia 11 obesity with a BMI of 39.3 12 Moraxella catarrhalis and Haemophilus influenza was in the sputum, consider superinfection/pneumonia. 13 Deep tissue injury to his left heel. Plan Patient is critically ill. Continue sedation. Give the patient and paralytic holiday and assess his ability to sustain his breathing without being paralyzed. Fixed the sedation however. Continue vent support. FiO2 has been drop down to 50% and there is normal further room for weaning on today's evaluation. Continue IV Merrem. Repeat blood cultures. Echocardiogram was done and the patient's LV function was within normal limits. Complete the dialysis today. Initiate TPN for nutritional support. We'll continue to follow make further recommendations based on the progress. Wounds are all dry clean and intact. There is some weeping from the fascia to be scar in the left lower extremity. His condition is critical. Prognosis poor baseline above-mentioned comorbidities. Critically care evaluation was done more than 30 minutes Time with Patient: Greater than 30
[2018-10-16] MEDS: SODIUM CHLORIDE 0.9% 150 ML with VASOPRESSIN 60 UNIT IV SCH ×2 (15:50)
[2018-10-16] MEDS: CISATRACURIUM 200 MG in SODIUM CHLORIDE 0.9% 180 ML IV SCH (16:37)
--- NOTE | 2018-10-16 18:41 | PN ---
PROGRESS NOTE DATE OF SERVICE: 10/16/2018 CHIEF COMPLAINT: Aortic occlusive disease. HISTORY OF PRESENT ILLNESS: This gentleman remains on the ventilator and his condition is worsening. He is probably developing respiratory distress syndrome and his renal function is deteriorating. He is still on pressors and urinary output is dropping. PHYSICAL EXAMINATION: Breath sounds are heard on both sides with occasional rhonchi. Cardiac exam seems normal. Extremities are now fairly well perfused. IMPRESSION: 1. Status post aortofemoral bypass. 2. Progressive renal failure. 3. Chronic obstructive pulmonary disease. 4. syndrome. PLAN: Follow with Thoracic Surgery, Cardiology and Pulmonology. MMODL / IJN: [id number] /
--- NOTE | 2018-10-16 20:41 | PN ---
PROGRESS NOTE Patient is seen for followup for acute kidney injury. He is oliguric. He is also volume-overloaded with no urine output. Patient is maintained on Levophed and vasopressin. He was dialyzed for about 2-1/2 hours yesterday for hyperkalemia. We will dialyze him again today. Patient is requiring 20 of PEEP to maintain adequate oxygenation. On examination this morning, blood pressure 126/56, heart rate of about 102 per minute. Patient is afebrile. EXAMINATION OF THE HEART: S1 and S2. EXAMINATION OF LUNGS: Bilateral breath sounds are heard. Patient is sedated. He is on the vent. EXTREMITIES: Examination shows edema 2+, upper and lower extremities. ABDOMEN: Distended. Labs show sodium 136, potassium 5.1, chloride 101, BUN 39, serum creatinine 4.2. Phosphorus was 10.7. ASSESSMENT: 1. Acute kidney injury, acute tubular necrosis, oliguric, status post hemodialysis yesterday. We will repeat another treatment today and we will try for ultrafiltration of about half to one liter as tolerated. 2. Volume overload. Discontinue IV fluids and increase UF as tolerated with daily dialysis. 3. Vent-dependent respiratory failure. 4. Peripheral vascular disease, status post aortobifemoral bypass, postoperative day number 9. 5. Status post acute bilateral lower extremity ischemia, status post emergent thrombectomy. 6. Shock, possibly sepsis. 7. Chronic kidney disease, stage III. Previous creatinine 1.37 and 1.4 in August of 2018. Etiology likely nephrosclerosis. Previous UA was negative. Current UA on this admission shows trace protein. 8. Severe hyperphosphatemia. Currently the tube feeds are on hold. We will add the phosphate binders once patient is able to tolerate tube feedings. PLAN: Repeat dialysis today. Increase UF as tolerated to help decrease the PEEP. Overall prognosis is guarded. MMODL / IJN: [id number] /
[2018-10-17] MEDS: PROPOFOL 1,000 MG in EMPTY BAG 1 BAG IV SCH ×8 (02:32→21:45)
[2018-10-17 04:50] LABS: ABG Base Excess -2.5 mmol/L; ABG HCO3 24 mmol/L (21-25); ABG Oxygen Saturation 98.2 % (94-97); ABG PCO2 48 mmHg (35-45); ABG PO2 126 mmHg (83-108); ABG TCO2 25 mmol/L (19-24); Allen Test Performed? Yes
[2018-10-17 05:23] LABS: Anisocytosis Slight; HCT 26.2 % (39.0-53.0); HGB 8.5 gm/dL (13.0-17.5); Hypochromasia Slight; MCH 29.3 pg (25.0-35.0); MCHC 32.7 g/dL (31.0-37.0); MCV 89.7 fL (80.0-100.0); Mean Platelet Volume 7.6; Platelet Count 315 k/uL (150-450); RBC 2.92 m/uL (4.30-5.90); RDW 16.4 % (11.5-15.5); WBC 14.7 k/uL (3.8-10.6)
[2018-10-17] MEDS: HYDROmorphone 1 MG/ML 1 ML SYRINGE IVP SCH ×5 (05:36→19:31)
[2018-10-17] MEDS: ARTIFICIAL TEARS-HYPROMELLOSE DROPS 15 ML BTL BOTH EYES SCH ×5 (05:43→19:31)
[2018-10-17] MEDS: NOREPINEPHRINE 32 MG in SODIUM CHLORIDE 0.9% 218 ML IV SCH (05:44)
[2018-10-17 06:12] LABS: Band Neutrophils % 13 %; Eosinophils # (M) 0.29 k/uL (0-0.7); Lymphocytes # (M) 1.03 k/uL (1.0-4.8); Metamyelocytes # (M) 0.74 k/uL (0); Metamyelocytes % 5 %; Monocytes # (M) 0.74 k/uL (0-1.0); Neutrophils % (M) 69 %; Nucleated Red Blood Cells 0 /100 WBC (0-0); Total Cells Counted 200
[2018-10-17] MEDS: IPRATROPIUM-ALBUTEROL 3 ML NEB INHALATION SCH ×5 (07:29→19:32)
[2018-10-17] MEDS: HEPARIN SOD,PORK IN 0.45% NACL 25,000 UNIT in 0.45% NACL 1 250ML.BAG IV SCH ×2 (08:10→20:32)
[2018-10-17] MEDS: CHLORHEXIDINE GLUCONATE 15 ML CUP MUCOUS MEM SCH ×2 (08:11→20:02)
[2018-10-17] MEDS: PANTOPRAZOLE 40 MG/10 ML VIAL IVP SCH (08:12)
[2018-10-17 08:16] LABS: Calcium 7.2 mg/dL (8.4-10.2); Magnesium 2.3 mg/dL (1.6-2.3); Potassium 3.8 mmol/L (3.5-5.1)
[2018-10-17 08:38] LABS: Phosphorus 9.3 mg/dL (2.5-4.5)
[2018-10-17] MEDS: CISATRACURIUM 200 MG in SODIUM CHLORIDE 0.9% 180 ML IV SCH ×2 (08:51→18:25)
--- NOTE | 2018-10-17 09:04 | XR ---
EXAMINATION TYPE: XR chest 1V portable DATE OF EXAM: 10/17/2018 COMPARISON: Prior chest x-ray 10/16/2018 HISTORY: Intubated TECHNIQUE: Single frontal view of the chest is obtained. FINDINGS: Endotracheal tube is overlying the tracheal air column. Left jugular central venous cathet er shows the distal tip over the superior vena cava level, right jugular central venous catheter show s the distal tip in similar position. Gastric tube is present and the distal tip is not included on t he exam. There is no pneumothorax. Heart size is stable. Bibasilar increased density persists, inters titium is increased, there is perihilar vascular indistinctness. Aorta is dense. IMPRESSION: Correlate for congestive heart failure, volume overload, pneumonia not excluded, there m ay be basilar effusions. Findings are similar to prior exam.
[2018-10-17] MEDS: MEROPENEM 500 MG in SODIUM CHLORIDE 0.9% 50 ML IVPB SCH ×2 (09:05→20:02)
[2018-10-17] MEDS: ASPIRIN 81 MG PO SCH (09:05)
[2018-10-17] MEDS: FENOFIBRATE 160 MG TAB PO SCH (09:06)
[2018-10-17] MEDS: GABAPENTIN 300 MG CAP PO SCH ×3 (09:06→22:30)
[2018-10-17 12:10] LABS: ABG PH 7.18 (7.35-7.45)
--- NOTE | 2018-10-17 13:25 | PN ---
PROGRESS NOTE The patient is seen for followup for acute kidney injury. He remains oliguric. He was dialyzed for 2 days and patient will be dialyzed again. We were able to remove about 1 L yesterday. We will plan for again 2 L today. is down to 18 from 20. The patient remains on large amounts of pressors including Levophed at about 18 mcg and vasopressin. The patient is also on Nimbex. IV fluids were discontinued yesterday. Urine output remains 0. PHYSICAL EXAMINATION: On examination, patient is sedated. Blood pressure this morning 137/57, heart rate about 90 per minute. He is afebrile. EXAMINATION OF THE HEART: S1, S2. EXAMINATION OF THE LUNGS: Bilateral breath sounds are heard. Abdomen is soft, distended. Examination of the lower extremities shows edema 2+ bilaterally. LABS: Labs show sodium 136, potassium 3.8, BUN 36, serum creatinine 4.02. Phosphorus is 9.3. Hemoglobin 8.5, white cell count 14.7. ASSESSMENT: 1. Acute kidney injury, acute tubular necrosis secondary to contrast nephropathy and hemodynamic instability, currently oliguric and hemodialysis dependent. We will plan for dialysis again today. 2. Volume overload, increase UF with hemodialysis today. 3. Ventilator dependent respiratory failure. 4. Severe peripheral vascular disease, status post aortobifemoral bypass, postoperative day #10. 5. Status post bilateral lower extremity ischemia, status post emergent thrombectomy. 6. Chronic kidney disease stage 3. Prior creatinine 1.37 and 1.4 in August of 2018, most likely secondary to nephrosclerosis. UA has seen quite benign. 7. Severe hyperphosphatemia secondary to advanced renal failure, currently not on binders as patient is not being fed. PLAN: Repeat hemodialysis today with goal UF of about 2 L. We will maintain patient on daily dialysis mainly for fluid management and try to decrease the and oxygen requirement. Overall prognosis is guarded. MMODL / IJN: [id number] /
--- NOTE | 2018-10-17 14:38 | P.PN ---
Subjective Progress Note Date: 10/17/18 On 10/17/2018, I'm seeing this patient for a follow-up. The patient is still sedated. Paralytics have been discontinued yesterday and the patient was able to come off the paralytics without any major difficulties and he remains 6 a mechanical ventilator. The chest x-ray from today shows some improvement in the volume status and the bladder pulmonary infiltrates. There is still dense consolidation in the lung bases bilaterally. The patient is on assist control mode of ventilation. The patient is on a tidal volume of 400 with an FiO2 of 50% and a PEEP of 20 and the rate of 32. The blood gases showed a pH of 7.3 with a pCO2 of 48 and pO2 of 126. Based on that, I dropped down the FiO2 down t o 40% and I also The PEEP down to 18. The Peak Airway Pressure Is around 37-39. The Patient Underwent a Session of Hemodialysis Yesterday. This Was a Second Session with 500 ML of Ultrafiltration Was Done. Other session of dialysis to be done today. He is not producing any urine output. BUN is a 36 with a creatinine of 4.02. He is showing signs of fluid overload with some increased edema in lower extremities and upper extremities bilaterally. He has also developed some scrotal edema. She'll feeds were placed on hold. He was started on TPN for nutritional support. He is on norepinephrine infusion for hemodynamic support. Norepinephrine is running at 20 g per minute and the patient is on a physiologic dose of vasopressin. The patient is maintaining his own blood pressure. The patient has Doppler signals in lower extremities bilaterally. Ostomy site on the left lower extremity is taking fluids. The. Dressing changes are being done. The abdominal wound is clean. Groin wound wounds are also clean. The patient has a drop in the white cell count of 14.7. Platelet count is within normal at 315. No other significant events overnight otherwise. The patient is still covered and IV meropenem as a broad-spectrum antibiotic coverage. Objective - Vital Signs Vital signs: Vital Signs Temp 99.0 F 10/17/18 12:00 Pulse 90 10/17/18 12:17 Resp 33 H 10/17/18 12:00 BP 135/61 10/16/18 13:16 Pulse Ox 98 10/17/18 12:00 Intake & Output 10/16/18 10/17/18 10/17/18 18:59 06:59 18:59 Intake Total 3121.541 8131.875 803.662 Output Total 515 600 115 Balance 934.037 646.875 688.662 Weight 125.9 kg 125.4 kg Intake: IV 276 486 258 Pressure bag 36 36 18 Sodium Acetate 30 meq 330 180 Magnesium Sulfate gm 1 gm Calcium Gluconate 2 gm Mvi, Adult No.4 with Vit K 10 ml Trace (Conc-1Ml/ Dose) 1 ml In Amino Acid 5%-D15w 1,000 ml @ 30 mls /hr IV .Q24H [facility] Rx#: [id number] Sodium Chloride 0.9% 1, 240 120 60 000 ml @ 50 mls/hr IV . Q20H [facility] Rx#:[id number] Intake, IV Titration 1173.037 760.875 545.662 Amount Cisatracurium 200 mg In 180.336 0 19.664 Sodium Chloride 0.9% 180 ml @ 2 MCG/KG/MIN 13.788 mls/hr IV .[id number] [facility] Rx #:[id number] Heparin Sod,Pork in 0.45% 250 249.362 243.704 NaCl 25,000 unit In 0.45 % NaCl 1 250ml.bag @ 18 UNITS/KG/HR 20.682 mls/hr IV .Q12H6M [facility] Rx#: [id number] Meropenem 500 mg In 100 50 Sodium Chloride 0.9% 50 ml @ 100 mls/hr IVPB Q12HR [facility] Rx#:[id number] Norepinephrine 32 mg In 123.213 88.347 40.387 Sodium Chloride 0.9% 218 ml @ 0.05 MCG/KG/MIN 2. 693 mls/hr IV .Q24H [facility] Rx#:[id number] Propofol 1,000 mg In 459.488 393.166 191.907 Empty Bag 1 bag @ Titrate IV .Q0M [facility] Rx#: [id number] Sodium Acetate 30 meq 60 30 Magnesium Sulfate gm 1 gm Calcium Gluconate 2 gm Mvi, Adult No.4 with Vit K 10 ml Trace (Conc-1Ml/ Dose) 1 ml In Amino Acid 5%-D15w 1,000 ml @ 30 mls /hr IV .Q24H [facility] Rx#: [id number] Output: Gastric Drainage 600 Urine 15 0 15 Emesis 100 Hemodialysis 500 Other: Voiding Method Indwelling Catheter Indwelling Catheter Indwelling Catheter ABP, PAP, CO, CI - Last Documented Arterial Blood Pressure 117/55 - Exam GENERAL EXAM: Alert, pleasant, 53-year-old white male, intubated on a mechanical ventilator and the patient is sedated and off paralytics for now. The patient is intubated on a mechanical ventilator. The patient is very much synchronized with a mechanical ventilated note that he is also paralyzed. HEAD: Normocephalic/atraumatic. EYES: Normal reaction of pupils, equal size. Conjunctiva pink, sclera white. NOSE: Clear with pink turbinates. THROAT: No erythema or exudates. NECK: No masses, no JVD, no thyroid enlargement, no adenopathy. The patient has a left neck IJ triple lumen catheter in place. The patient has a right IJ dialysis catheter and exit site is clean. CHEST: No chest wall deformity. Symmetrical expansion. LUNGS: Equal air entry with basilar crackles CVS: Regular rate and rhythm, normal S1 and S2, no gallops, no murmurs, no rubs ABDOMEN: Soft, nontender. No hepatosplenomegaly, normal bowel sounds, no guarding or rigidity. Midabdominal and Bilateral groin incisions, left groin incision with wound VAC in place. EXTREMITIES: No clubbing, no edema, no cyanosis, post tibial pulses palpable, no palpable pedal pulses and upper and lower extremities. The patient has a DPI over his left ankle. The patient also has a patient to me site is open and very much dry clean and intact without any purulent discharge in his left lower extremity. Noted pulses are only obtained by Doppler in lower extremities bilaterally especially in the feet. MUSCULOSKELETAL: Muscle strength cannot be assessed. The patient has a left fascia geronimo me at the level of the callus with some ongoing drainage and weeping. SPINE: No scoliosis or deformity SKIN: No rashes, , DPI in the left ankle area, and the patient is scrotal edema CENTRAL NERVOUS SYSTEM: Unable to perform as the patient is sedated PSYCHIATRIC: Unable to perform - Labs CBC & Chem 7: 10/17/18 04:48 10/17/18 04:48 Labs: Abnormal Lab Results - Last 24 Hours (Table) 10/16/18 10/16/18 10/17/18 Range/Units 05:10 11:05 04:47 WBC (3.8-10.6) k/uL RBC (4.30-5.90) m/uL Hgb (13.0-17.5) gm/dL Hct (39.0-53.0) % RDW (11.5-15.5) % Neutrophils # (Manual) (1.3-7.7) k/uL Metamyelocytes # (Man) (0) k/uL ABG pH 7.18 L* 7.30 L (7.35-7.45) ABG pCO2 48 H (35-45) mmHg ABG pO2 126 H (83-108) mmHg ABG Total CO2 25 H (19-24) mmol/L ABG O2 Saturation 98.2 H (94-97) % Sodium (137-145) mmol/L Carbon Dioxide (22-30) mmol/L BUN (9-20) mg/dL Creatinine (0.66-1.25) mg/dL Glucose (74-99) mg/dL Calcium (8.4-10.2) mg/dL Phosphorus (2.5-4.5) mg/dL Procalcitonin 25.34 H (0.02-0.09) ng/mL 10/17/18 10/17/18 Range/Units 04:48 04:48 WBC 14.7 H (3.8-10.6) k/uL RBC 2.92 L (4.30-5.90) m/uL Hgb 8.5 L (13.0-17.5) gm/dL Hct 26.2 L (39.0-53.0) % RDW 16.4 H (11.5-15.5) % Neutrophils # (Manual) 12.00 H (1.3-7.7) k/uL Metamyelocytes # (Man) 0.74 H (0) k/uL ABG pH (7.35-7.45) ABG pCO2 (35-45) mmHg ABG pO2 (83-108) mmHg ABG Total CO2 (19-24) mmol/L ABG O2 Saturation (94-97) % Sodium 136 L (137-145) mmol/L Carbon Dioxide 20 L (22-30) mmol/L BUN 36 H (9-20) mg/dL Creatinine 4.02 H (0.66-1.25) mg/dL Glucose 106 H (74-99) mg/dL Calcium 7.2 L (8.4-10.2) mg/dL Phosphorus 9.3 H* (2.5-4.5) mg/dL Procalcitonin (0.02-0.09) ng/mL Microbiology - Last 24 Hours (Table) 10/16/18 10:40 Blood Culture - Preliminary Blood No Growth after 24 hours 10/16/18 10:10 Blood Culture - Preliminary Blood No Growth after 24 hours 10/16/18 15:20 Gram Stain - Preliminary Sputum Sputum Culture - Preliminary Assessment and Plan Plan: 1 peripheral vascular disease, severe and the patient is postop for a aorto bifemoral bypass surgery and the surgery was done on 10/07/2018, postop day number 10 the patient is currently on aspirin and IV heparin. The patient had a complicated course with pneumonia/ARDS/acute kidney injury and the patient is currently intubated on a mechanical ventilator and the patient is undergoing dialysis. On today's evaluation, the patient the patient is still hemodynamically pressor dependent and the patient is currently on 20 mics of norepinephrine infusion and physiologic dose of vasopressin. Pulses in lower extremities are present with Doppler signal. All of the surgical wound sites of dry clean and intact. The patient remains intubated on a mechanical ventilator. There is some improvement in the oxygenation today based on the blood gases. Repeat has been dropped down to 18 with an FiO2 down to 40%. Chest x-ray still showing diffuse breath and pulmonary infiltrates with consolidation of the lower lobes bilaterally. 2 acute ischemic limbs postop and the patient underwent a emergent thrombectomy on the right on 10/11/2018 and on the left on 10/13/2018. 3 acute ventilator-dependent respiratory failure secondary to above, consider ARDS, currently sedated and paralyzed with Nimbex to maintain synchrony with the mechanical ventilator. There is also development of a right lower lobe pneumonia as the patient was cultured there Moraxella catarrhalis and [place] emophilus and right lower lobe pneumonia complicating his respiratory failure is also suspected. The patient is currently receiving meropenem. The follow-up chest x-ray shows lower lobe consolidation bilaterally along with diffuse bilateral pulmonary infiltrates. 3 shock, consider septic shock and the patient is currently on a combination of vasopressin and lower dose norepinephrine infusion. The patient is also on Merrem. The patient has been adequately resuscitated IV fluids. The patient is on a combination of pressors yet the norepinephrine infusion is being gradually weaned down and earlier this morning the patient was running at 20 mics 5 acute kidney injury, secondary to contrast, hypotension, pressor use. Rule out underlying ATN. The patient is currently on hemodialysis. First session was done yesterday and second session was done today with ultrafiltration of 500 mL.The patient will receive the third session of hemodialysis today. The goal is to ultrafiltrate this patient for a total of 2 L. 6 aortic dissection, please refer to the CAT scan of the abdomen report 7 chronic kidney disease with a baseline creatinine in the range of 1.9-2 8 chronic back pain 9 hypertension, history of 10 hyperlipidemia 11 obesity with a BMI of 39.3 12 Moraxella catarrhalis and Haemophilus influenza was in the sputum, consider superinfection/pneumonia. 13 Deep tissue injury to his left heel. Plan The patient is critically ill. There has been some improvement in the oxygenation compared to yesterday. I dropped the PEEP down to 18 and intend to drop it further as long as saturation remains above 95%. FiO2 is down to 40%. The patient is currently on pressors. We'll wean off the pressors if possible. We will continue IV Merrem as a broad-spectrum antibiotic coverage. We'll continue TPN for nutritional support. Keep the patient IV heparin. Monitor the pulses in lower extremities bilaterally. Monitor surgical wound sites. Dressing changes regarding the fish ottoman the left lower extremity. White cell count is improving. Echocardiogram showed a preserved LV function.. Blood cultures and sputum cultures are all negative. We'll continue to follow. Condition is quite critical and the patient's outcome is poor baseline above- mentioned comorbidities. Nevertheless, there is been some interval improvement compared to yesterday on continue to follow. There is a critically care evaluation was done and more than 30 minutes.
[2018-10-17] MEDS ORDERED: MVI, ADULT NO.4 WITH VIT K 10 ML, TRACE (CONC-1ML/DOSE) 1 ML, SODIUM ACETATE 30 MEQ, MA... IV SCH ×7 (15:00)
[2018-10-17] MEDS ORDERED: DEXTROSE 5% IN WATER 100 ML with AMIODARONE 150 MG IV ONE (15:07)
[2018-10-17] MEDS ORDERED: AMIODARONE 360 MG in DEXTROSE 5% IN WATER 200 ML IV ONE ×2 (15:07)
[2018-10-17 15:44] LABS: Calcium 7.5 mg/dL (8.4-10.2); Magnesium 2.5 mg/dL (1.6-2.3); Potassium 3.6 mmol/L (3.5-5.1)
[2018-10-17] MEDS ORDERED: Potassium Replacement Protocol 1 EACH MISC MISCELLANE PRN (16:52)
[2018-10-17] MEDS: POTASSIUM CHLORIDE 10 MEQ in WATER FOR INJECTION 1 100ML.BAG IVPB SCH ×2 (17:08→18:31)
--- NOTE | 2018-10-17 17:25 | PN ---
PROGRESS NOTE CHIEF COMPLAINT: Respiratory failure, progressive renal failure, status post aortofemoral bypass. HISTORY OF PRESENT ILLNESS: This patient is continuing to struggle. Still on a ventilator and renal function is deteriorating. Respiratory picture is also deteriorating. PHYSICAL EXAM: He remains on the ventilator. Breath sounds are heard bilaterally. Extremities are well perfused. IMPRESSION: 1. Status post aortofemoral bypass. 2. Atherosclerotic cardiovascular disease. 3. Chronic obstructive pulmonary disease. 4. Respiratory distress syndrome. 5. Progressive renal failure. PLAN: No change in program from my perspective, but await further recommendations regarding the patient's management. It does not sound as though he has any close relatives that can be consulted. MMODL / IJN: [id number] /
[2018-10-17] MEDS: SODIUM CHLORIDE 0.9% 150 ML with VASOPRESSIN 60 UNIT IV SCH ×2 (18:20)
[2018-10-17] MEDS: [UNRECOGNIZED DRUG - REMARK] IV SCH ×6 (18:21)
[2018-10-17] MEDS: AMIODARONE 300 MG in DEXTROSE 5% IN WATER 250 ML IV SCH ×2 (18:25)
[2018-10-18] MEDS: ARTIFICIAL TEARS-HYPROMELLOSE DROPS 15 ML BTL BOTH EYES SCH ×3 (00:11→09:54)
[2018-10-18] MEDS: HYDROmorphone 1 MG/ML 1 ML SYRINGE IVP SCH ×2 (00:12→04:24)
[2018-10-18] MEDS: PROPOFOL 1,000 MG in EMPTY BAG 1 BAG IV SCH ×6 (03:19→21:05)
[2018-10-18 05:07] LABS: ABG Base Excess -0.1 mmol/L; ABG HCO3 26 mmol/L (21-25); ABG Oxygen Saturation 93.8 % (94-97); ABG PCO2 47 mmHg (35-45); ABG PH 7.35 (7.35-7.45); ABG PO2 75 mmHg (83-108); ABG TCO2 27 mmol/L (19-24); Allen Test Performed? Yes
[2018-10-18] MEDS: AMIODARONE 300 MG in DEXTROSE 5% IN WATER 250 ML IV SCH ×4 (05:48→14:18)
[2018-10-18 06:14] LABS: Anisocytosis Slight; HCT 23.3 % (39.0-53.0); HGB 7.9 gm/dL (13.0-17.5); MCH 29.8 pg (25.0-35.0); MCHC 33.7 g/dL (31.0-37.0); MCV 88.5 fL (80.0-100.0); Platelet Count 252 k/uL (150-450); RBC 2.64 m/uL (4.30-5.90)
[2018-10-18 06:26] LABS: Calcium 7.4 mg/dL (8.4-10.2); Magnesium 2.5 mg/dL (1.6-2.3); Phosphorus 8.2 mg/dL (2.5-4.5); Potassium 3.5 mmol/L (3.5-5.1)
[2018-10-18 07:16] LABS: Blast Cells # (M) 0.14 k/uL (0); Metamyelocytes # (M) 0.41 k/uL (0); Total Cells Counted 200; WBC 13.5 k/uL (3.8-10.6)
[2018-10-18 07:18] LABS: Polychromasia Present
[2018-10-18 07:19] LABS: Basophilic Stippling Present
[2018-10-18 07:20] LABS: Poikilocytosis (M) Present
[2018-10-18] MEDS: IPRATROPIUM-ALBUTEROL 3 ML NEB INHALATION SCH ×4 (07:29→19:28)
[2018-10-18] MEDS: HEPARIN SOD,PORK IN 0.45% NACL 25,000 UNIT in 0.45% NACL 1 250ML.BAG IV SCH ×2 (08:00→18:40)
[2018-10-18] MEDS: PANTOPRAZOLE 40 MG/10 ML VIAL IVP SCH (08:21)
[2018-10-18] MEDS: MEROPENEM 500 MG in SODIUM CHLORIDE 0.9% 50 ML IVPB SCH ×2 (08:22→20:55)
[2018-10-18] MEDS: FENOFIBRATE 160 MG TAB PO SCH (08:22)
[2018-10-18] MEDS: ASPIRIN 81 MG PO SCH (08:22)
[2018-10-18] MEDS: CHLORHEXIDINE GLUCONATE 15 ML CUP MUCOUS MEM SCH ×2 (08:22→21:05)
[2018-10-18] MEDS: GABAPENTIN 300 MG CAP PO SCH ×3 (08:22→21:05)
[2018-10-18] MEDS: CISATRACURIUM 200 MG in SODIUM CHLORIDE 0.9% 180 ML IV SCH (08:22)
--- NOTE | 2018-10-18 08:41 | PN ---
PROGRESS NOTE Patient is seen for followup for acute kidney injury which is oliguric ATN from contrast nephropathy and hemodynamic instability and hypotension. Patient is currently hemodialysis dependent. This is for treatment today. He has been tolerating UF fairly well. Yesterday we had close to 2 L of ultrafiltration and we were able to decrease the PEEP on the ventilator from 20-15 today. Patient remains on a large amount of Levophed at about 30 mcg along with vasopressin. On examination, blood pressure this morning 116/58, heart rate 81 per minute. He is afebrile. Examination of the heart, S1, S2. Examination of the lungs, bilateral breath sounds are heard. Abdomen is distended. Examination of the lower extremities shows edema 2+ bilaterally upper and lower extremities. [employer] exam cannot be performed. LABS: Show hemoglobin 7.9 g/dL. Sodium 132, potassium 3.5, BUN 39, serum creatinine 3.63. ASSESSMENT: 1. Acute kidney injury, ATN, hemodialysis-dependent with severe volume overload. We will dialyze the patient again today with plans for UF of about 2-2.5 L as tolerated. 2. Status post aortobifemoral bypass, postoperative day #11. 3. Status post bilateral lower extremity scheme which was acute postoperatively, status post emergent thrombectomy bilaterally. 4. Chronic kidney disease stage III, baseline creatinine 1.3-1.4 mg/dL secondary to nephrosclerosis. UA is completely benign. 5. Severe hyperphosphatemia secondary to renal failure, currently not on binders as patient is not being fed. 6. Severe volume overload. 7. Volume dependent respiratory failure. PLAN: Hemodialysis today with goal UF 2-2.5 L. Continue to try and decrease pressors as tolerated. Once patient is tolerating oral intake, we will add phosphate binders. MMODL / IJN: [id number] /
--- NOTE | 2018-10-18 09:15 | XR ---
EXAMINATION TYPE: XR chest 1V portable DATE OF EXAM: 10/18/2018 Comparison: 10/17/2018 Clinical History: 53-year-old male ventilator management Findings: ET tube tip satisfactory at the level of the medial clavicular heads. NG tube courses below the diaph ragm. Left CVC tip at the cavoatrial junction. Right CVC tip at the lower SVC. Heart normal size. Dif fuse interstitial and vascular prominence. Some residual patchy lower lung densities, improving from prior exam. Impression: 1. Interstitial densities persist. 2. More patchy infiltrates in the lower lungs are improving.
[2018-10-18] MEDS: [UNRECOGNIZED DRUG - REMARK] IV SCH ×6 (10:00)
[2018-10-18] MEDS: NOREPINEPHRINE 32 MG in SODIUM CHLORIDE 0.9% 218 ML IV SCH (10:23)
[2018-10-18 10:26] LABS: Band Neutrophils % 17 %; Eosinophils # (M) 0.41 k/uL (0-0.7); Lymphocytes # (M) 0.95 k/uL (1.0-4.8); Monocytes # (M) 0.68 k/uL (0-1.0); Myelocytes # (M) 0.81 k/uL (0); Myelocytes % 6 %; Neutrophils % (M) 63 %; Nucleated Red Blood Cells 0 /100 WBC (0-0)
[2018-10-18] MEDS: POTASSIUM CHLORIDE 20 MEQ in WATER FOR INJECTION 1 100ML.BAG IVPB SCH ×2 (11:15→14:17)
--- NOTE | 2018-10-18 12:50 | P.PN ---
Subjective Progress Note Date: 10/18/18 On 10/18/2018 I'm seeing this patient for a follow-up. The patient underwent 3 sessions of hemodialysis and she is undergoing the fourth session today. Yesterday's hemodialysis was inserted with 200 mL of ultrafiltration. The patient is sedated. No paralytics. The patient is on 50 mics of propofol for now. A sedation holiday is to be given today after completing the hemodialysis. At the time of my evaluation the patient was already having his dialysis. In terms of vent support, the patient is on assist-control mode of ventilation with a tidal volume of 400 and an FiO2 of 40% with a PEEP of 15 and the respiratory rate of 32. Morning blood gases showed a pH of 7.35 with a pCO2 of 47 and pO2 of 75. The chest x-ray from today shows interstitial densities persist however improved compared to yesterday. The patient also has patchy lower lobe infiltrates that are improving. The patient's pro-calcitonin level from 2 days ago was quite elevated and the patient is still on a combination of Merrem and pressors. Norepinephrine infusion is ranging and those based on the blood pressure response. This morning the patient was somewhat between 13 and 15 g per minute and the patient is still on vasopressin physiologic dose. No bowel activity. Surgical wound sites are clean. No abdominal distention. Hypoactive or absent bowel sounds. The patient is on TPN for nutritional support. The patient had diminished pulses in lower extremities. There is obtained by Doppler signals. He is getting progressively more edematous and will hopefully this is improving with dialysis. He does have lower extremity edema, upper extremity edema, scrotal edema. He is white cell count is at 13.5. Afebrile. He maintains a hemoglobin of 7.9. He is not producing any urine output. His cardiac rhythm is sinus. Yesterday afternoon the patient had a bout of atrial fibrillation with rapid ventricular response. He was given bolus of amiodarone and he was maintained on amiodarone after being loaded and subsequently the patient converted back into normal sinus rhythm. This morning amiodarone was discontinued. His having some occasional PACs and his underlying cardiac rhythm is sinus. Potassium level is at 3.5. This is being replaced. Echo has shown a preserved LV function. Objective - Vital Signs Vital signs: Vital Signs Temp 98.3 F 10/18/18 12:00 Pulse 93 10/18/18 12:00 Resp 40 H 10/18/18 12:00 BP 122/58 10/18/18 09:49 Pulse Ox 96 10/18/18 12:00 Intake & Output 10/17/18 10/18/18 10/18/18 18:59 06:59 18:59 Intake Total 0236.338 7589.217 724.368 Output Total 2915 0 2500 Balance -9999.348 9471.217 -1775.632 Weight 124.2 kg 124.2 kg Intake: IV 456 526 325 Meropenem 500 mg In 50 50 Sodium Chloride 0.9% 50 ml @ 100 mls/hr IVPB Q12HR ON LICENSE OF [facility] Rx#:[id number] Normal Saline carrier 110 60 Pressure bag 36 36 15 Sodium Acetate 30 meq 360 330 200 Magnesium Sulfate gm 1 gm Calcium Gluconate 2 gm Mvi, Adult No.4 with Vit K 10 ml Trace (Conc-1Ml/ Dose) 1 ml In Amino Acid 5%-D15w 1,000 ml @ 30 mls /hr IV .Q24H [facility] Rx#: [id number] Sodium Chloride 0.9% 1, 60 000 ml @ 50 mls/hr IV . Q20H ON LICENSE OF [facility] Rx#:[id number] Intake, IV Titration 1230.534 925.217 399.368 Amount Amiodarone 300 mg In 100 275 Dextrose 5% in Water 250 ml @ 0.5 MG/MIN 25 mls/hr IV .Q10H [facility] Rx#: [id number] Amiodarone 360 mg In 33 Dextrose 5% in Water 200 ml @ 1 MG/MIN 33.333 mls/ hr IV .Q6H [facility] Rx#: [id number] Cisatracurium 200 mg In 19.664 Sodium Chloride 0.9% 180 ml @ 2 MCG/KG/MIN 13.788 mls/hr IV .[id number] ON LICENSE OF [facility] Rx #:[id number] Dextrose 5% in Water 100 50 ml @ 618 mls/hr IV .Q10M [facility] with Amiodarone 150 mg Rx#:[id number] Heparin Sod,Pork in 0.45% 243.704 250 250 NaCl 25,000 unit In 0.45 % NaCl 1 250ml.bag @ 18 UNITS/KG/HR 20.682 mls/hr IV .Q12H6M ON LICENSE OF [facility] Rx#: [id number] Meropenem 500 mg In 50 Sodium Chloride 0.9% 50 ml @ 100 mls/hr IVPB Q12HR [facility] Rx#:[id number] Norepinephrine 32 mg In 127.358 50.217 33.843 Sodium Chloride 0.9% 218 ml @ 0.05 MCG/KG/MIN 2. 693 mls/hr IV .Q24H [facility] Rx#:[id number] Potassium Chloride 10 meq 200 In Water For Injection 1 100ml.bag @ 100 mls/hr IVPB Q1H [facility] Rx#: [id number] Propofol 1,000 mg In 456.808 300 115.525 Empty Bag 1 bag @ Titrate IV .Q0M [facility] Rx#: [id number] Oral 0 Output: Gastric Drainage 800 Urine 15 0 0 Emesis 100 Hemodialysis 2000 2500 Other: Voiding Method Indwelling Catheter Indwelling Catheter Indwelling Catheter ABP, PAP, CO, CI - Last Documented Arterial Blood Pressure 147/64 - Exam GENERAL EXAM: Alert, pleasant, 53-year-old white male, intubated on a mechanical ventilator and the patient is sedated and off paralytics for now. The patient is intubated on a mechanical ventilator. The patient is very much synchronized with a mechanical ventilated note that he is also paralyzed. HEAD: Normocephalic/atraumatic. EYES: Normal reaction of pupils, equal size. Conjunctiva pink, sclera white. NOSE: Clear with pink turbinates. THROAT: No erythema or exudates. NECK: No masses, no JVD, no thyroid enlargement, no adenopathy. The patient has a left neck IJ triple lumen catheter in place. The patient has a right IJ dialysis catheter and exit site is clean. CHEST: No chest wall deformity. Symmetrical expansion. LUNGS: Equal air entry with basilar crackles CVS: Regular rate and rhythm, normal S1 and S2, no gallops, no murmurs, no rubs ABDOMEN: Soft, nontender. No hepatosplenomegaly, normal bowel sounds, no guarding or rigidity. Midabdominal and Bilateral groin incisions, left groin i ncision with wound VAC in place. EXTREMITIES: No clubbing, no edema, no cyanosis, post tibial pulses palpable, no palpable pedal pulses and upper and lower extremities. The patient has a DPI over his left ankle. The patient also has a patient to ga site is open and very much dry clean and intact without any purulent discharge in his left lower extremity. Noted pulses are only obtained by Doppler in lower extremities bilaterally especially in the feet. MUSCULOSKELETAL: Muscle strength cannot be assessed. The patient has a left fascia geronimo me at the level of the callus with some ongoing drainage and weeping. SPINE: No scoliosis or deformity SKIN: No rashes, , DPI in the left ankle area, and the patient is scrotal edema CENTRAL NERVOUS SYSTEM: Unable to perform as the patient is sedated PSYCHIATRIC: Unable to perform - Labs CBC & Chem 7: 10/18/18 05:46 10/18/18 05:46 Labs: Abnormal Lab Results - Last 24 Hours (Table) 10/17/18 10/18/18 10/18/18 Range/Units 14:45 05:02 05:46 WBC 13.5 H (3.8-10.6) k/uL RBC 2.64 L (4.30-5.90) m/uL Hgb 7.9 L (13.0-17.5) gm/dL Hct 23.3 L (39.0-53.0) % RDW 17.0 H (11.5-15.5) % Neutrophils # (Manual) 10.80 H (1.3-7.7) k/uL Lymphocytes # (Manual) 0.95 L (1.0-4.8) k/uL Metamyelocytes # (Man) 0.41 H (0) k/uL Myelocytes # (Manual) 0.81 H (0) k/uL Blast Cells # (Man) 0.14 H (0) k/uL ABG pCO2 47 H (35-45) mmHg ABG pO2 75 L (83-108) mmHg ABG HCO3 26 H (21-25) mmol/L ABG Total CO2 27 H (19-24) mmol/L ABG O2 Saturation 93.8 L (94-97) % Sodium 133 L (137-145) mmol/L Chloride (98-107) mmol/L BUN 43 H (9-20) mg/dL Creatinine 4.27 H (0.66-1.25) mg/dL Glucose 112 H (74-99) mg/dL Calcium 7.5 L (8.4-10.2) mg/dL Phosphorus (2.5-4.5) mg/dL Magnesium 2.5 H (1.6-2.3) mg/dL 10/18/18 Range/Units 05:46 WBC (3.8-10.6) k/uL RBC (4.30-5.90) m/uL Hgb (13.0-17.5) gm/dL Hct (39.0-53.0) % RDW (11.5-15.5) % Neutrophils # (Manual) (1.3-7.7) k/uL Lymphocytes # (Manual) (1.0-4.8) k/uL Metamyelocytes # (Man) (0) k/uL Myelocytes # (Manual) (0) k/uL Blast Cells # (Man) (0) k/uL ABG pCO2 (35-45) mmHg ABG pO2 (83-108) mmHg ABG HCO3 (21-25) mmol/L ABG Total CO2 (19-24) mmol/L ABG O2 Saturation (94-97) % Sodium 132 L (137-145) mmol/L Chloride 97 L (98-107) mmol/L BUN 39 H (9-20) mg/dL Creatinine 3.63 H (0.66-1.25) mg/dL Glucose 111 H (74-99) mg/dL Calcium 7.4 L (8.4-10.2) mg/dL Phosphorus 8.2 H (2.5-4.5) mg/dL Magnesium 2.5 H (1.6-2.3) mg/dL Microbiology - Last 24 Hours (Table) 10/16/18 10:10 Blood Culture - Preliminary Blood No Growth after 48 hours 10/16/18 15:20 Gram Stain - Final Sputum Sputum Culture - Final 10/16/18 10:40 Blood Culture - Preliminary Blood No Growth after 24 hours Assessment and Plan Plan: 1 peripheral vascular disease, severe and the patient is postop for a aorto bifemoral bypass surgery and the surgery was done on 10/07/2018, postop day number 11 the patient is currently on aspirin and IV heparin. The patient had a complicated course with pneumonia/ARDS/acute kidney injury and the patient is currently intubated on a mechanical ventilator and the patient is undergoing d ialysis. Over the past 24-48 hours the patient's showed steady improvement in his hemodynamics and ARDS. In terms of respiratory status, the oxygenation is improved. Airway mechanics and airway pressures are also improved. The patient was Found to PEEP of 15 and I intend to further drop it down further to 13 if he is able to tolerate. IV due to blood gas today. I reviewed also the chest x-ra y. Hemodynamically, I'm going to ask the nursing staff to gradually wean off the pressors if possible. After completion of dialysis we'll may need to also give this patient a sedation holiday to assess his underlying mental status. 2 acute ischemic limbs postop and the patient underwent a emergent thrombectomy on the right on 10/11/2018 and on the left on 10/13/2018. 3 acute ventilator-dependent respiratory failure secondary to above, consider ARDS, vomiting infiltrates are improving. Lower lobe consolidations improving. Pro-calcitonin was elevated. The patient on IV Merrem. Repeat cultures are all negative. He is afebrile for now. 3 shock, consider septic shock and the patient is currently on a combination of vasopressin and lower dose norepinephrine infusion. The patient is also on Merrem. 5 acute kidney injury, secondary to contrast, hypotension, pressor use. Rule ou t underlying ATN. The patient is currently on hemodialysis. The patient is undergoing his daily dialysis today. Over the past 4 days. Daily dialysis with a total ultrafiltration of 5 L. 6 aortic dissection, please refer to the CAT scan of the abdomen report 7 chronic kidney disease with a baseline creatinine in the range of 1.9-2 8 chronic back pain 9 hypertension, history of 10 hyperlipidemia 11 obesity with a BMI of 39.3 12 Moraxella catarrhalis and Haemophilus influenza was in the sputum, consider superinfection/pneumonia. 13 Deep tissue injury to his left heel. 14 paroxysmal atrial fibrillation current rhythm is back to sinus. Plan The patient is critically ill. The patient is undergoing daily dialysis. The patient ARDS is gradually improving. Based on today's evaluation and blunting of the PEEP to 13. We'll give the patient sedation holiday. We'll complete kendall lysis with a goal of ultrafiltration of 2 L. The patient is on IV Merrem this will be continued. Continue TPN for nutritional support. Monitor PTT. Continued IV heparin. Continue monitoring the pulses in lower extremities. The patient had a bout of atrial fibrillation. There is noted to maintain amiodarone for now. This will be discontinued. The patient's rhythm is back to sinus. Replace potassium. There is a critically care evaluation was done and more than 30 minutes. Time with Patient: Greater than 30
[2018-10-18] MEDS ORDERED: DEXTROSE 5% IN WATER 100 ML with AMIODARONE 150 MG IV ONE (13:11)
[2018-10-18 13:19] LABS: Albumin 2.1 g/dL (3.5-5.0); Total Bilirubin 1.8 mg/dL (0.2-1.3); Total Protein 4.6 g/dL (6.3-8.2)
[2018-10-18] MEDS: HYDROmorphone 1 MG/ML 1 ML SYRINGE IVP PRN ×2 (13:39→21:06)
[2018-10-18] MEDS: SODIUM CHLORIDE 0.9% 150 ML with VASOPRESSIN 60 UNIT IV SCH ×2 (14:16)
--- NOTE | 2018-10-18 14:50 | PN ---
PROGRESS NOTE This is a 53-year-old gentleman who had aortobifemoral graft and with a thrombectomy of the right and left femoral artery. I was called in by Dr. Multani to cover him for today. The patient is on the vent. The patient also has AFib, chronic renal failure. Incision in the abdomen is healing good. Patient has a fasciotomy in the left lower extremity, incision site is clean. Pulses are present by the Doppler. Left foot is warm. MMODL / IJN: [id number] /
[2018-10-18] MEDS: BISACODYL 10 MG SUPP RECTAL SCH (14:58)
[2018-10-18] MEDS: [UNRECOGNIZED DRUG - REMARK] IV SCH ×6 (15:49)
--- NOTE | 2018-10-18 18:23 | PN ---
PROGRESS NOTE CHIEF COMPLAINT: Aortoiliac occlusive disease. HISTORY OF PRESENT ILLNESS: This gentleman continues to have difficulties. He is still on a ventilator. Chest x- ray may be slightly improved, but he still has a significant issue with respiratory failure. He also has hyp tension. He is still on pressors. He has been in sinus rhythm, but went into atrial fibrillation once or twice. He is not making urine, and dialysis has started. He continues to have fairly good perfusion of the lower extremities. PHYSICAL EXAMINATION: CHEST: Clear on both sides. Cardiac exam is in sinus for the time being. The abdomen is a little bit distended. EXTREMITIES: Unchanged. IMPRESSION: 1. Status post aortofemoral bypass. 2. Atherosclerotic cardiovascular disease. 3. Oliguric renal failure. 4. Acute respiratory distress syndrome. 5. Chronic obstructive pulmonary disease. 6. Possible septicemia. PLAN: Continue to follow with Vascular Surgery, Pulmonology and Nephrology. Prognosis is poor. MMODL / IJN: [id number] /
[2018-10-18] MEDS: IPRATROPIUM-ALBUTEROL 3 ML NEB INHALATION PRN (23:30)
[2018-10-19] MEDS: AMIODARONE 300 MG in DEXTROSE 5% IN WATER 250 ML IV SCH ×4 (00:10→10:56)
[2018-10-19] MEDS: SODIUM CHLORIDE 0.9% 150 ML with VASOPRESSIN 60 UNIT IV SCH ×2 (01:22)
[2018-10-19] MEDS: PROPOFOL 1,000 MG in EMPTY BAG 1 BAG IV SCH ×5 (02:00→18:37)
[2018-10-19] MEDS: HYDROmorphone 1 MG/ML 1 ML SYRINGE IVP PRN ×5 (02:05→21:41)
[2018-10-19] MEDS: IPRATROPIUM-ALBUTEROL 3 ML NEB INHALATION PRN ×2 (03:19→23:20)
[2018-10-19 05:23] LABS: ABG Base Excess 1.1 mmol/L; ABG HCO3 26 mmol/L (21-25); ABG Oxygen Saturation 96.3 % (94-97); ABG PCO2 39 mmHg (35-45); ABG PH 7.43 (7.35-7.45); ABG PO2 84 mmHg (83-108); ABG TCO2 27 mmol/L (19-24); Allen Test Performed? Yes
[2018-10-19 05:43] LABS: Anisocytosis Slight; HCT 22.9 % (39.0-53.0); HGB 7.8 gm/dL (13.0-17.5); MCH 29.7 pg (25.0-35.0); MCV 87.1 fL (80.0-100.0); Mean Platelet Volume 8.4; Platelet Count 212 k/uL (150-450); RBC 2.62 m/uL (4.30-5.90); RDW 16.8 % (11.5-15.5); WBC 16.3 k/uL (3.8-10.6)
[2018-10-19] MEDS: HEPARIN SOD,PORK IN 0.45% NACL 25,000 UNIT in 0.45% NACL 1 250ML.BAG IV SCH ×2 (05:48→16:55)
[2018-10-19 06:34] LABS: Ionized Calcium 4.5 mg/dL (4.5-5.3)
[2018-10-19 06:50] LABS: Albumin 2.2 g/dL (3.5-5.0); Calcium 7.7 mg/dL (8.4-10.2); Magnesium 2.3 mg/dL (1.6-2.3); Phosphorus 5.2 mg/dL (2.5-4.5); Potassium 4.2 mmol/L (3.5-5.1)
[2018-10-19 07:09] LABS: Band Neutrophils % 40 %; Eosinophils # (M) 0.65 k/uL (0-0.7); Lymphocytes # (M) 0.33 k/uL (1.0-4.8); Metamyelocytes # (M) 1.47 k/uL (0); Metamyelocytes % 9 %; Monocytes # (M) 0.82 k/uL (0-1.0); Neutrophils % (M) 40 %; Nucleated Red Blood Cells 0 /100 WBC (0-0); Total Cells Counted 200
[2018-10-19 07:11] LABS: Toxic Granulation Present
[2018-10-19] MEDS: IPRATROPIUM-ALBUTEROL 3 ML NEB INHALATION SCH ×4 (07:29→19:29)
[2018-10-19] MEDS: BISACODYL 10 MG SUPP RECTAL SCH (08:53)
[2018-10-19] MEDS: PANTOPRAZOLE 40 MG/10 ML VIAL IVP SCH (08:53)
[2018-10-19] MEDS: FENOFIBRATE 160 MG TAB PO SCH (08:53)
[2018-10-19] MEDS: MEROPENEM 500 MG in SODIUM CHLORIDE 0.9% 50 ML IVPB SCH ×2 (08:53→20:32)
[2018-10-19] MEDS: GABAPENTIN 300 MG CAP PO SCH ×3 (08:53→21:41)
[2018-10-19] MEDS: CHLORHEXIDINE GLUCONATE 15 ML CUP MUCOUS MEM SCH ×2 (08:53→20:35)
[2018-10-19] MEDS: ASPIRIN 81 MG PO SCH (08:53)
--- NOTE | 2018-10-19 08:57 | XR ---
EXAMINATION TYPE: XR chest 1V portable DATE OF EXAM: 10/19/2018 HISTORY: ventilator management. REFERENCE: Previous study dated 10/18/2018. FINDINGS: The patient is ET tube and NG tube remain in place, unchanged in appearance. A left interna l jugular catheter is in place. Its tip is at the cavoatrial junction. A right internal jugular lia ter is in place. Its tip is in the superior vena cava. There continues be left basilar airspace disease. Aeration in the right lung has improved. Heart size upper limits of normal. No definite pleural fluid is seen. IMPRESSION: IMPROVED AERATION, RIGHT LUNG BASE.
[2018-10-19] MEDS: AMIODARONE 200 MG TAB PO SCH ×2 (10:57→20:35)
--- NOTE | 2018-10-19 11:57 | P.PN ---
Subjective Progress Note Date: 10/19/18 Principal diagnosis: This is a 53-year-old male who underwent aortofemoral bypass for peripheral vascular disease on 10/07/2018 , is post op day 12. He is on dialysis because of dye-induced ATN as well as hypotension. Is been dialyzed 5 days in a row. He is not making any urine. He remains on the ventilator at 40% FiO2 is on levo fed as well as on vasopressin and propofol drips. He is on Amiodone. He remains completely obtunded. He also had post op bilateral lower extremity ischemia which required emergency thrombectomy bilaterally. Is known with chronic kidney disease stage III with baseline creatinine of about 1.3. Over the last 5 dialysis approximately 2-2-1/2 L have been ultrafiltrate the Objective - Vital Signs Vital signs: Vital Signs Temp 98.5 F 10/19/18 04:00 Pulse 80 10/19/18 07:45 Resp 31 H 10/19/18 07:00 BP 122/58 10/18/18 09:49 Pulse Ox 94 L 10/19/18 07:00 Intake & Output 10/18/18 10/19/18 10/19/18 18:59 06:59 18:59 Intake Total 5473.033 4243.257 163 Output Total 2910 182 0 Balance -1963.907 5037.257 163 Weight 124.2 kg 122.4 kg Intake: IV 1153 806 63 Meropenem 500 mg In 50 50 Sodium Chloride 0.9% 50 ml @ 100 mls/hr IVPB Q12HR [facility] Rx#:[id number] Normal Saline carrier 120 120 10 Potassium Chloride 20 meq 200 In Water For Injection 1 100ml.bag @ 50 mls/hr IVPB Q2H [facility] Rx#: [id number] Pressure bag 33 36 3 Sodium Acetate 30 meq 200 Magnesium Sulfate gm 1 gm Calcium Gluconate 2 gm Mvi, Adult No.4 with Vit K 10 ml Trace (Conc-1Ml/ Dose) 1 ml In Amino Acid 5%-D15w 1,000 ml @ 30 mls /hr IV .Q24H [facility] Rx#: [id number] TPN 550 600 50 Intake, IV Titration 727.365 758.257 100 Amount Amiodarone 300 mg In 246.667 Dextrose 5% in Water 250 ml @ 0.5 MG/MIN 25 mls/hr IV .Q10H [facility] Rx#: [id number] Heparin Sod,Pork in 0.45% 491.44 250 NaCl 25,000 unit In 0.45 % NaCl 1 250ml.bag @ 18 UNITS/KG/HR 20.682 mls/hr IV .Q12H6M [facility] Rx#: [id number] Norepinephrine 32 mg In 35.925 8.079 Sodium Chloride 0.9% 218 ml @ 0.05 MCG/KG/MIN 2. 693 mls/hr IV .Q24H [facility] Rx#:[id number] Propofol 1,000 mg In 200.000 253.511 100 Empty Bag 1 bag @ Titrate IV .Q0M [facility] Rx#: [id number] Oral 0 Output: Gastric Drainage 400 150 Urine 10 32 0 Hemodialysis 2500 Other: Voiding Method Indwelling Catheter Indwelling Catheter ABP, PAP, CO, CI - Last Documented Arterial Blood Pressure 124/53 Obtunded on propofol. Currently on dialysis at the time of this examination. Blood pressures in the 140s. No JVP neck is supple Lungs are clear to auscultation fair air entry bilaterally Heart sounds are unremarkable is in atrial fibrillation Abdomen is nondistended. Extremity exam was 1-2+ edema No obvious ischemic changes noted in his feet. Neurologically obtunded. - Labs CBC & Chem 7: 10/19/18 05:20 10/19/18 05:20 Labs: Abnormal Lab Results - Last 24 Hours (Table) 10/18/18 10/18/18 10/19/18 Range/Units 05:46 05:46 05:18 WBC (3.8-10.6) k/uL RBC (4.30-5.90) m/uL Hgb (13.0-17.5) gm/dL Hct (39.0-53.0) % RDW (11.5-15.5) % Neutrophils # (Manual) (1.3-7.7) k/uL Lymphocytes # (Manual) (1.0-4.8) k/uL Metamyelocytes # (Man) (0) k/uL ABG HCO3 26 H (21-25) mmol/L ABG Total CO2 27 H (19-24) mmol/L Sodium 132 L (137-145) mmol/L Chloride 97 L (98-107) mmol/L BUN 39 H (9-20) mg/dL Creatinine 3.63 H (0.66-1.25) mg/dL Glucose 111 H (74-99) mg/dL Calcium 7.4 L (8.4-10.2) mg/dL Phosphorus 8.2 H (2.5-4.5) mg/dL Magnesium 2.5 H (1.6-2.3) mg/dL Total Bilirubin 1.8 H (0.2-1.3) mg/dL AST 700 H (17-59) U/L ALT 175 H (21-72) U/L Total Protein 4.6 L (6.3-8.2) g/dL Albumin 2.1 L (3.5-5.0) g/dL Procalcitonin 17.05 H (0.02-0.09) ng/mL 10/19/18 10/19/18 Range/Units 05:20 05:20 WBC 16.3 H (3.8-10.6) k/uL RBC 2.62 L (4.30-5.90) m/uL Hgb 7.8 L (13.0-17.5) gm/dL Hct 22.9 L (39.0-53.0) % RDW 16.8 H (11.5-15.5) % Neutrophils # (Manual) 13.00 H (1.3-7.7) k/uL Lymphocytes # (Manual) 0.33 L (1.0-4.8) k/uL Metamyelocytes # (Man) 1.47 H (0) k/uL ABG HCO3 (21-25) mmol/L ABG Total CO2 (19-24) mmol/L Sodium 132 L (137-145) mmol/L Chloride 97 L (98-107) mmol/L BUN 41 H (9-20) mg/dL Creatinine 3.57 H (0.66-1.25) mg/dL Glucose 104 H (74-99) mg/dL Calcium 7.7 L (8.4-10.2) mg/dL Phosphorus 5.2 H (2.5-4.5) mg/dL Magnesium (1.6-2.3) mg/dL Total Bilirubin (0.2-1.3) mg/dL AST (17-59) U/L ALT (21-72) U/L Total Protein (6.3-8.2) g/dL Albumin 2.2 L (3.5-5.0) g/dL Procalcitonin (0.02-0.09) ng/mL Microbiology - Last 24 Hours (Table) 10/16/18 10:40 Blood Culture - Preliminary Blood No Growth after 48 hours 10/16/18 10:10 Blood Culture - Preliminary Blood No Growth after 48 hours 10/16/18 15:20 Gram Stain - Final Sputum Sputum Culture - Final Assessment and Plan Assessment: Impression 1. Acute kidney injury secondary to contrast as well as postop complications. Currently on dialysis with the Jeronimo in the right IJ. Has been dialyzed 5 days in a row and today's ultrafiltration goal is 3 L. So far stable 2. Status post prior to femoral bypass postop day 12. Complications of postop ischemic changes in both legs requiring thrombectomy. 3. When dependent respiratory failure. 4. Inotropic support. 5. Anemia off chronic illness hemoglobin 7.8. 6. Mildly of hyponatremia sodium is 132 secondary to acute kidney injury and dilutional. 7. Chronic kidney disease stage III, Baseline creatinine is 0.3, etiology is nephrosclerosis 8. Mild degree of volume overload with edema. Recommendation 1. Will hold off dialysis tomorrow and reassess for dialysis on Sunday. Most likely he will need continuation as he is not showing any urine output. 2. Follow-up anemia. 3. Next dialysis schedule for Sunday on 10/21/2018
[2018-10-19] MEDS: [UNRECOGNIZED DRUG - REMARK] IV SCH ×6 (12:41)
--- NOTE | 2018-10-19 13:10 | P.PN ---
Subjective Progress Note Date: 10/19/18 On 10/19/2018, the patient is still sedated. Doing well. On a mechanical ventilator. He is on a PEEP of 15 this morning with an FiO2 of 40% and a tidal volume of 400 and the rate of 32. There is still a drop in his airway pressures. Blood gases showed pH of 7.43 with a pCO2 of 39 and pO2 of 84 and this was on FiO2 of 40%. No significant orotracheal secretions. Chest x-ray continues to show improvement in the bilateral pulmonary infiltrates. The patient this morning is on 2 mics of norepinephrine infusion. He is still on a maintenance amiodarone at 0.5 mg per minute and the patient is on a normal sinus rhythm. The patient is also receiving vasopressin physiologic to 0.03 units per hour. The patient is on IV Merrem. The patient is on TPN for nutritional support. Bowel sounds are hypoactive. He is afebrile. Pulses in lower extremities are obtained by Doppler signal. He was given a sedation holiday today and he was able to move and respond to deep painful stimulation. His hemo globin stable at 7.8. White cell count at 16.3. His last dialysis session was yesterday and the patient had a total of 4 sessions of hemodialysis. There is some improvement in the volume status although there is significant amount of edema in lower extremities and scrotal area Objective - Vital Signs Vital signs: Vital Signs Temp 98.4 F 10/19/18 12:01 Pulse 83 10/19/18 12:01 Resp 15 10/19/18 12:01 BP 122/58 10/18/18 09:49 Pulse Ox 92 L 10/19/18 12:01 Intake & Output 10/18/18 10/19/18 10/19/18 18:59 06:59 18:59 Intake Total 7932.226 4412.257 1575.915 Output Total 2910 182 0 Balance -8734.965 5775.257 1575.915 Weight 124.2 kg 122.4 kg Intake: IV 1153 806 428 Meropenem 500 mg In 50 50 50 Sodium Chloride 0.9% 50 ml @ 100 mls/hr IVPB Q12HR [facility] Rx#:[id number] Normal Saline carrier 120 120 60 Potassium Chloride 20 meq 200 In Water For Injection 1 100ml.bag @ 50 mls/hr IVPB Q2H [facility] Rx#: [id number] Pressure bag 33 36 18 Sodium Acetate 30 meq 200 Magnesium Sulfate gm 1 gm Calcium Gluconate 2 gm Mvi, Adult No.4 with Vit K 10 ml Trace (Conc-1Ml/ Dose) 1 ml In Amino Acid 5%-D15w 1,000 ml @ 30 mls /hr IV .Q24H [facility] Rx#: [id number] TPN 550 600 300 Intake, IV Titration 727.365 306.281 2720.915 Amount Amiodarone 300 mg In 246.667 Dextrose 5% in Water 250 ml @ 0.5 MG/MIN 25 mls/hr IV .Q10H [facility] Rx#: [id number] Heparin Sod,Pork in 0.45% 491.44 250 NaCl 25,000 unit In 0.45 % NaCl 1 250ml.bag @ 18 UNITS/KG/HR 20.682 mls/hr IV .Q12H6M [facility] Rx#: [id number] Mvi, Adult No.4 with Vit 1043.333 K 10 ml Trace (Conc-1Ml/ Dose) 1 ml Sodium Acetate 35 meq Calcium Gluconate 2 gm Potassium Chloride 20 meq In Amino Acid 5%- D15w 1,000 ml @ 50 mls/hr IV .[id number] [facility] Rx#: [id number] Norepinephrine 32 mg In 35.925 8.079 4.582 Sodium Chloride 0.9% 218 ml @ 0.05 MCG/KG/MIN 2. 693 mls/hr IV .Q24H [facility] Rx#:[id number] Propofol 1,000 mg In 200.000 253.511 100 Empty Bag 1 bag @ Titrate IV .Q0M [facility] Rx#: [id number] Oral 0 Output: Gastric Drainage 400 150 Urine 10 32 0 Hemodialysis 2500 Other: Voiding Method Indwelling Catheter Indwelling Catheter Indwelling Catheter ABP, PAP, CO, CI - Last Documented Arterial Blood Pressure 150/67 - Exam GENERAL EXAM: Alert, pleasant, 53-year-old white male, intubated on a mechanical ventilator and the patient is sedated and off paralytics for now. The patient is intubated on a mechanical ventilator. The patient is very much synchronized with a mechanical ventilated note that he is also paralyzed. HEAD: Normocephalic/atraumatic. EYES: Normal reaction of pupils, equal size. Conjunctiva pink, sclera white. NOSE: Clear with pink turbinates. THROAT: No erythema or exudates. NECK: No masses, no JVD, no thyroid enlargement, no adenopathy. The patient has a left neck IJ triple lumen catheter in place. The patient has a right IJ dialysis catheter and exit site is clean. CHEST: No chest wall deformity. Symmetrical expansion. LUNGS: Equal air entry with basilar crackles CVS: Regular rate and rhythm, normal S1 and S2, no gallops, no murmurs, no rubs ABDOMEN: Soft, nontender. No hepatosplenomegaly, normal bowel sounds, no guarding or rigidity. Midabdominal and Bilateral groin incisions, left groin incision with wound VAC in place. EXTREMITIES: No clubbing, no edema, no cyanosis, post tibial pulses palpable, no palpable pedal pulses and upper and lower extremities. The patient has a DPI over his left ankle. The patient also has a patient to me site is open and very much dry clean and intact without any purulent discharge in his left lower extremity. Noted pulses are only obtained by Doppler in lower extremities bilaterally especially in the feet. MUSCULOSKELETAL: Muscle strength cannot be assessed. The patient has a left fascia geronimo me at the level of the callus with some ongoing drainage and weeping. SPINE: No scoliosis or deformity SKIN: No rashes, , DPI in the left ankle area, and the patient is scrotal edema CENTRAL NERVOUS SYSTEM: Unable to perform as the patient is sedated PSYCHIATRIC: Unable to perform - Labs CBC & Chem 7: 10/19/18 05:20 10/19/18 05:20 Labs: Abnormal Lab Results - Last 24 Hours (Table) 10/18/18 10/18/18 10/19/18 Range/Units 05:46 05:46 05:18 WBC (3.8-10.6) k/uL RBC (4.30-5.90) m/uL Hgb (13.0-17.5) gm/dL Hct (39.0-53.0) % RDW (11.5-15.5) % Neutrophils # (Manual) (1.3-7.7) k/uL Lymphocytes # (Manual) (1.0-4.8) k/uL Metamyelocytes # (Man) (0) k/uL APTT (22.0-30.0) sec ABG HCO3 26 H (21-25) mmol/L ABG Total CO2 27 H (19-24) mmol/L Sodium (137-145) mmol/L Chloride (98-107) mmol/L BUN (9-20) mg/dL Creatinine (0.66-1.25) mg/dL Glucose (74-99) mg/dL Calcium (8.4-10.2) mg/dL Phosphorus (2.5-4.5) mg/dL Total Bilirubin 1.8 H (0.2-1.3) mg/dL AST 700 H (17-59) U/L ALT 175 H (21-72) U/L Total Protein 4.6 L (6.3-8.2) g/dL Albumin 2.1 L (3.5-5.0) g/dL Procalcitonin 17.05 H (0.02-0.09) ng/mL 10/19/18 10/19/18 10/19/18 Range/Units 05:20 05:20 12:08 WBC 16.3 H (3.8-10.6) k/uL RBC 2.62 L (4.30-5.90) m/uL Hgb 7.8 L (13.0-17.5) gm/dL Hct 22.9 L (39.0-53.0) % RDW 16.8 H (11.5-15.5) % Neutrophils # (Manual) 13.00 H (1.3-7.7) k/uL Lymphocytes # (Manual) 0.33 L (1.0-4.8) k/uL Metamyelocytes # (Man) 1.47 H (0) k/uL APTT 63.2 H (22.0-30.0) sec ABG HCO3 (21-25) mmol/L ABG Total CO2 (19-24) mmol/L Sodium 132 L (137-145) mmol/L Chloride 97 L (98-107) mmol/L BUN 41 H (9-20) mg/dL Creatinine 3.57 H (0.66-1.25) mg/dL Glucose 104 H (74-99) mg/dL Calcium 7.7 L (8.4-10.2) mg/dL Phosphorus 5.2 H (2.5-4.5) mg/dL Total Bilirubin (0.2-1.3) mg/dL AST (17-59) U/L ALT (21-72) U/L Total Protein (6.3-8.2) g/dL Albumin 2.2 L (3.5-5.0) g/dL Procalcitonin (0.02-0.09) ng/mL Microbiology - Last 24 Hours (Table) 10/16/18 10:40 Blood Culture - Preliminary Blood No Growth after 72 hours 10/16/18 10:10 Blood Culture - Preliminary Blood No Growth after 72 hours 10/16/18 15:20 Gram Stain - Final Sputum Sputum Culture - Final Assessment and Plan Plan: 1 peripheral vascular disease, severe and the patient is postop for a aorto bifemoral bypass surgery and the surgery was done on 10/07/2018, postop day number 12 the patient is currently on aspirin and IV heparin. The patient had a complicated course with pneumonia/ARDS/acute kidney injury and the patient is currently intubated on a mechanical ventilator and the patient is undergoing dialysis. The chest x-ray continues to improve and we have been able to gradually wean the patient off the PEEP. This morning, the patient was in a PEEP of 13. No oxygen desaturations. 2 acute ischemic limbs postop and the patient underwent a emergent thrombectomy on the right on 10/11/2018 and on the left on 10/13/2018. 3 acute ventilator-dependent respiratory failure secondary to above, consider ARDS, vomiting infiltrates are improving. Lower lobe consolidations improving. Pro-calcitonin was elevated. The patient on IV Merrem. Repeat cultures are all negative. He is afebrile for now. 3 shock, consider septic shock and the patient is currently on a combination of vasopressin and lower dose norepinephrine infusion. The patient is also on Merrem. The patient is only a few mics of norepinephrine infusion for now and there is been significant improvement in his pressor requirements. 5 acute kidney injury, secondary to contrast, hypotension, pressor use. Rule out underlying ATN. The patient is currently on hemodialysis. The patient is undergoing his daily dialysis today. Over the past 4 days. Daily dialysis with a total ultrafiltration of 5 L. 6 aortic dissection, please refer to the CAT scan of the abdomen report 7 chronic kidney disease with a baseline creatinine in the range of 1.9-2 8 chronic back pain 9 hypertension, history of 10 hyperlipidemia 11 obesity with a BMI of 39.3 12 Moraxella catarrhalis and Haemophilus influenza was in the sputum, consider superinfection/pneumonia. 13 Deep tissue injury to his left heel. 14 paroxysmal atrial fibrillation current rhythm is back to sinus. Plan The patient is critically ill. The patient is going to undergo hemodialysis today. We will remove a total of 2 L out. We will going to cut down the PEEP further to 11 cm of water and drop it down to 10 if possible to maintain a satur ation above 90%. Discontinue the vasopressin. Discontinue the amiodarone drip and switched this patient to oral amiodarone 200 mg twice a day. Continue the Venofer to gradually wean it off. Continue IV Merrem. TPN for nutritional support. Sedation holiday following dialysis. We'll continue to follow. Evaluation is done and more than 30 minutes and the patient is critically ill. Time with Patient: Greater than 30
--- NOTE | 2018-10-19 17:26 | PN ---
PROGRESS NOTE DATE OF SERVICE: 10/19/2018 CHIEF COMPLAINT: Respiratory failure, oliguric renal failure, COPD, ASCVD, status post aortofemoral bypass. HISTORY OF PRESENT ILLNESS: This patient's condition is just about the same. He is being dialyzed each day. Last chest x-ray suggested the possibility of slight improvement in his interstitial infiltrates. PHYSICAL EXAMINATION: Perfusion is good in all extremities. Chest is clear. Cardiac exam is normal. IMPRESSION: 1. Status post aortofemoral bypass. 2. Atherosclerotic cardiovascular disease. 3. Peripheral vascular occlusive disease. 4. Chronic obstructive pulmonary disease. 5. Acute adult respiratory distress syndrome. 6. Anuric renal failure, on dialysis. PLAN: Continue to follow without any recommended changes in my management at this time. MMODL / IJN: [id number] /
[2018-10-20] MEDS: PROPOFOL 1,000 MG in EMPTY BAG 1 BAG IV SCH ×4 (01:24→13:33)
[2018-10-20] MEDS: HEPARIN SOD,PORK IN 0.45% NACL 25,000 UNIT in 0.45% NACL 1 250ML.BAG IV SCH ×2 (04:45→16:02)
[2018-10-20 05:21] LABS: ABG Base Excess 5.5 mmol/L; ABG HCO3 29 mmol/L (21-25); ABG Oxygen Saturation 98.1 % (94-97); ABG PCO2 38 mmHg (35-45); ABG PH 7.49 (7.35-7.45); ABG PO2 103 mmHg (83-108); ABG TCO2 30 mmol/L (19-24); Allen Test Performed? Yes
[2018-10-20 05:43] LABS: Anisocytosis Slight; HCT 23.9 % (39.0-53.0); MCH 29.2 pg (25.0-35.0); MCHC 33.3 g/dL (31.0-37.0); MCV 87.6 fL (80.0-100.0); Mean Platelet Volume 8.1; Platelet Count 202 k/uL (150-450); RBC 2.73 m/uL (4.30-5.90); RDW 16.3 % (11.5-15.5)
[2018-10-20 06:30] LABS: Calcium 7.7 mg/dL (8.4-10.2); Magnesium 2.1 mg/dL (1.6-2.3); Phosphorus 3.8 mg/dL (2.5-4.5); Potassium 3.8 mmol/L (3.5-5.1)
--- NOTE | 2018-10-20 06:43 | XR ---
EXAMINATION TYPE: XR chest 1V portable DATE OF EXAM: 10/20/2018 HISTORY: ventilator managment. REFERENCE: Previous study dated 10/19/2018. FINDINGS: The patient is ET tube and NG tube and left internal jugular catheter as well as a right in ternal jugular catheter remain in place, unchanged in appearance. There is worsening vascular congestion. There is bibasilar airspace disease. There is mild interstiti al change. Heart size is upper limits of normal. IMPRESSION: WORSENING CHANGES OF HEART FAILURE.
[2018-10-20 06:57] LABS: Band Neutrophils % 29 %; Eosinophils # (M) 0.51 k/uL (0-0.7); Lymphocytes # (M) 2.22 k/uL (1.0-4.8); Metamyelocytes # (M) 0.68 k/uL (0); Metamyelocytes % 4 %; Monocytes # (M) 0.68 k/uL (0-1.0); Myelocytes # (M) 0.51 k/uL (0); Myelocytes % 3 %; Neutrophils % (M) 45 %; Nucleated Red Blood Cells 1 /100 WBC (0-0); Total Cells Counted 200; WBC 17.1 k/uL (3.8-10.6)
[2018-10-20 06:58] LABS: Polychromasia Present
[2018-10-20 06:59] LABS: Large Platelets Present; Poikilocytosis (M) Present; Target Cells Present
[2018-10-20] MEDS: IPRATROPIUM-ALBUTEROL 3 ML NEB INHALATION SCH ×4 (07:31→19:46)
[2018-10-20] MEDS: MEROPENEM 500 MG in SODIUM CHLORIDE 0.9% 50 ML IVPB SCH ×2 (08:50→20:36)
[2018-10-20] MEDS: CHLORHEXIDINE GLUCONATE 15 ML CUP MUCOUS MEM SCH ×2 (08:51→20:37)
[2018-10-20] MEDS: BISACODYL 10 MG SUPP RECTAL SCH (08:51)
[2018-10-20] MEDS: AMIODARONE 200 MG TAB PO SCH ×2 (08:51→20:37)
[2018-10-20] MEDS: ASPIRIN 81 MG PO SCH (08:51)
[2018-10-20] MEDS: PANTOPRAZOLE 40 MG/10 ML VIAL IVP SCH (08:51)
[2018-10-20] MEDS: FENOFIBRATE 160 MG TAB PO SCH (08:51)
[2018-10-20] MEDS: GABAPENTIN 300 MG CAP PO SCH ×3 (09:01→20:38)
--- NOTE | 2018-10-20 10:13 | P.GSCN ---
History of Present Illness Consult date: 10/20/18 Reason for Consult: Respiratory failure History of present illness: 53-year-old male underwent recent aortobifemoral bypass. Postoperative the patient developed vascular occlusion requiring return trips to the operating room. Patient had left lower leg fasciotomy. Gradually improving from a pulmonary standpoint. At one point his PEEP was at 20. Currently PEEP down to 9. Currently receiving hemodialysis. We were consulted for tracheostomy and PEG tube placement Review of Systems ROS unobtainable: due to endotracheal tube Past Medical History Past Medical History: Hypertension, Osteoarthritis (OA), Thyroid Disorder, Vascular Disorder Additional Past Medical History / Comment(s): "no blood flow to legs", arthritis in lower back, edema of lower legs, occ swelling in fingers History of Any Multi-Drug Resistant Organisms: None Reported Past Surgical History: No Surgical Hx Reported Past Anesthesia/Blood Transfusion Reactions: No Reported Reaction Smoking Status: Current some day smoker - Past Family History Sister(s) Family Medical History: Cancer Medications and Allergies Home Medications Medication Instructions Recorded Confirmed Type Aspirin [Adult Low Dose Aspirin EC] 81 mg PO DAILY 09/03/18 10/07/18 History Fenofibrate [Lofibra] 160 mg PO DAILY 09/03/18 10/07/18 History Ibuprofen [Motrin] 800 mg PO QID 09/03/18 10/07/18 History Lisinopril [Zestril] 20 mg PO DAILY 09/03/18 10/07/18 History amLODIPine [Norvasc] 10 mg PO DAILY 09/03/18 10/07/18 History Ergocalciferol (Vitamin D2) 50,000 unit PO TH 09/25/18 10/07/18 History [Vitamin D2] Omeprazole [PriLOSEC] 20 mg PO AC-BID 09/25/18 10/07/18 History Allergies Allergy/AdvReac Type Severity Reaction Status Date / Time Penicillins Allergy Swelling Verified 10/07/18 20:03 Surgical - Exam Vital Signs Temp Pulse Resp BP Pulse Ox 98.7 F 70 18 146/70 98 10/07/18 10:10 10/07/18 10:10 10/07/18 10:10 10/07/18 10:10 10/07/18 10:10 Physical exam: General: Well-developed, well-nourished HEENT: Normocephalic, sclerae nonicteric Abdomen: Nontender, distended, midline incision with dressing intact Extremities: Edema bilaterally fasciotomy on left Neuro: On ventilator Results - Labs 10/20/18 05:00 10/20/18 05:00 Abnormal Lab Results - Last 24 Hours (Table) 10/19/18 10/20/18 10/20/18 Range/Units 12:08 05:00 05:00 WBC 17.1 H (3.8-10.6) k/uL RBC 2.73 L (4.30-5.90) m/uL Hgb 8.0 L (13.0-17.5) gm/dL Hct 23.9 L (39.0-53.0) % RDW 16.3 H (11.5-15.5) % Neutrophils # (Manual) 12.60 H (1.3-7.7) k/uL Metamyelocytes # (Man) 0.68 H (0) k/uL Myelocytes # (Manual) 0.51 H (0) k/uL Nucleated RBCs 1 H (0-0) /100 WBC APTT 63.2 H 48.8 H (22.0-30.0) sec ABG pH (7.35-7.45) ABG HCO3 (21-25) mmol/L ABG Total CO2 (19-24) mmol/L ABG O2 Saturation (94-97) % Sodium (137-145) mmol/L Chloride (98-107) mmol/L BUN (9-20) mg/dL Creatinine (0.66-1.25) mg/dL Calcium (8.4-10.2) mg/dL 10/20/18 10/20/18 Range/Units 05:00 05:17 WBC (3.8-10.6) k/uL RBC (4.30-5.90) m/uL Hgb (13.0-17.5) gm/dL Hct (39.0-53.0) % RDW (11.5-15.5) % Neutrophils # (Manual) (1.3-7.7) k/uL Metamyelocytes # (Man) (0) k/uL Myelocytes # (Manual) (0) k/uL Nucleated RBCs (0-0) /100 WBC APTT (22.0-30.0) sec ABG pH 7.49 H (7.35-7.45) ABG HCO3 29 H (21-25) mmol/L ABG Total CO2 30 H (19-24) mmol/L ABG O2 Saturation 98.1 H (94-97) % Sodium 132 L (137-145) mmol/L Chloride 95 L (98-107) mmol/L BUN 43 H (9-20) mg/dL Creatinine 3.38 H (0.66-1.25) mg/dL Calcium 7.7 L (8.4-10.2) mg/dL Microbiology - Last 24 Hours (Table) 10/16/18 10:40 Blood Culture - Preliminary Blood No Growth after 72 hours 10/16/18 10:10 Blood Culture - Preliminary Blood No Growth after 72 hours Diabetes panel 10/20/18 Range/Units 05:00 Sodium 132 L (137-145) mmol/L Potassium 3.8 (3.5-5.1) mmol/L Chloride 95 L (98-107) mmol/L Carbon Dioxide 27 (22-30) mmol/L BUN 43 H (9-20) mg/dL Creatinine 3.38 H (0.66-1.25) mg/dL Glucose 95 (74-99) mg/dL Calcium 7.7 L (8.4-10.2) mg/dL Calcium panel 10/20/18 Range/Units 05:00 Calcium 7.7 L (8.4-10.2) mg/dL Phosphorus 3.8 (2.5-4.5) mg/dL Pituitary panel 10/20/18 Range/Units 05:00 Sodium 132 L (137-145) mmol/L Potassium 3.8 (3.5-5.1) mmol/L Chloride 95 L (98-107) mmol/L Carbon Dioxide 27 (22-30) mmol/L BUN 43 H (9-20) mg/dL Creatinine 3.38 H (0.66-1.25) mg/dL Glucose 95 (74-99) mg/dL Calcium 7.7 L (8.4-10.2) mg/dL Adrenal panel 10/20/18 Range/Units 05:00 Sodium 132 L (137-145) mmol/L Potassium 3.8 (3.5-5.1) mmol/L Chloride 95 L (98-107) mmol/L Carbon Dioxide 27 (22-30) mmol/L BUN 43 H (9-20) mg/dL Creatinine 3.38 H (0.66-1.25) mg/dL Glucose 95 (74-99) mg/dL Calcium 7.7 L (8.4-10.2) mg/dL Assessment and Plan (1) Respiratory failure Narrative/Plan: 53-year-old male with respiratory failure after recent aortobifemoral bypass. Patient remains in serious to critical condition. Will tentatively plan tracheostomy and PEG tube placement tomorrow if the patient is off pressors and improved further from a pulmonary standpoint. Current Visit: Yes Status: Acute Code(s): J96.90 - RESPIRATORY FAILURE, UNSP, UNSP W HYPOXIA OR HYPERCAPNIA SNOMED Code(s): 179582385
--- NOTE | 2018-10-20 10:46 | P.PN ---
Subjective Progress Note Date: 10/20/18 On 10/20/2018 of seeing this patient for a follow-up. The patient is sedated on 30 mics of propofol. He was able to come off sedation adequately yesterday as the patient became restless and they suggested a mechanical ventilator. This morning it is back on sedation. He was on a PEEP of 11 with an FiO2 of 40% and a rate of 400 and respiratory rate of 32. I realize that the patient ever pressure lower and he was sucking way higher tidal volumes as with provided to him through the mechanical ventilator. Based on that, switch this patient to a VC plus mode and increase the tidal volume to 500 and dropped a respiratory rate up to 24 and dropped PEEP down to 9 keeping the FiO2 at 40% and the chest x-ray shows improvement of breath and pulmonary infiltrates. The patient's airway pressure steadily on the decline. Lower lobe consolidation improving and the patient is currently on IV meropenem. He is on TPN for nutritional support. Abdomen is slightly distended and hypoactive bowel sounds. Orogastric tube is in place. Surgical abdominal wound site is dry clean and intact. The groin w ounds are clean and intact. Pulses in the lower extremities are obtained and measured by Doppler. He has undergone 4 sessions of hemodialysis and the laceration was done yesterday without any complication with significant ultrafiltration. He is afebrile. He is hemodynamically stable on no pressors and both of vasopressin and levo fed has been discontinued. I am thinking and the patient will be a difficult wean and is reasonable to consider a PEG and trach special with above-mentioned medical problems and comorbidities encountered over the past 1 week. His white cell count is 17. Hemoglobin stable at 8.0. The patient remains on IV heparin. PH is 7.49 with a pCO2 of 38 and pO2 of 103. There is scrotal edema which is also improving. Objective - Vital Signs Vital signs: Vital Signs Temp 98.6 F 10/20/18 08:00 Pulse 92 10/20/18 10:00 Resp 22 10/20/18 10:00 BP 102/53 10/20/18 10:00 Pulse Ox 97 10/20/18 10:00 Intake & Output 10/19/18 10/20/18 10/20/18 18:59 06:59 18:59 Intake Total 2664.736 1220.673 384.682 Output Total 7300 37 0 Balance -4635.264 1183.673 384.682 Weight 120.1 kg Intake: IV 806 756 252 Meropenem 500 mg In 50 50 Sodium Chloride 0.9% 50 ml @ 100 mls/hr IVPB Q12HR [facility] Rx#:[id number] Normal Saline carrier 120 120 40 Pressure bag 36 36 12 TPN 600 600 150 Intake, IV Titration 1558.736 464.673 132.682 Amount Heparin Sod,Pork in 0.45% 250 250 NaCl 25,000 unit In 0.45 % NaCl 1 250ml.bag @ 18 UNITS/KG/HR 20.682 mls/hr IV .Q12H6M [facility] Rx#: [id number] Mvi, Adult No.4 with Vit 1043.333 K 10 ml Trace (Conc-1Ml/ Dose) 1 ml Sodium Acetate 35 meq Calcium Gluconate 2 gm Potassium Chloride 20 meq In Amino Acid 5%- D15w 1,000 ml @ 50 mls/hr IV .[id number] [facility] Rx#: [id number] Norepinephrine 32 mg In 9.141 16.519 Sodium Chloride 0.9% 218 ml @ 0.05 MCG/KG/MIN 2. 693 mls/hr IV .Q24H [facility] Rx#:[id number] Propofol 1,000 mg In 256.262 198.154 132.682 Empty Bag 1 bag @ Titrate IV .Q0M [facility] Rx#: [id number] Hemodialysis 300 Output: Gastric Drainage 1000 Urine 0 37 0 Hemodialysis 3300 Other 3000 Other: Voiding Method Indwelling Catheter Indwelling Catheter Indwelling Catheter # Voids 1 ABP, PAP, CO, CI - Last Documented Arterial Blood Pressure 121/60 - Exam GENERAL EXAM: Alert, pleasant, 53-year-old white male, intubated on a mechanical ventilator and the patient is sedated and off paralytics for now. The patient is intubated on a mechanical ventilator. The patient is very much synchronized with a mechanical ventilated note that he is also paralyzed. HEAD: Normocephalic/atraumatic. EYES: Normal reaction of pupils, equal size. Conjunctiva pink, sclera white. NOSE: Clear with pink turbinates. THROAT: No erythema or exudates. NECK: No masses, no JVD, no thyroid enlargement, no adenopathy. The patient has a left neck IJ triple lumen catheter in place. The patient has a right IJ dialysis catheter and exit site is clean. CHEST: No chest wall deformity. Symmetrical expansion. LUNGS: Equal air entry with basilar crackles CVS: Regular rate and rhythm, normal S1 and S2, no gallops, no murmurs, no rubs ABDOMEN: Soft, nontender. No hepatosplenomegaly, normal bowel sounds, no guarding or rigidity. Midabdominal and Bilateral groin incisions, left groin incision with wound VAC in place. EXTREMITIES: No clubbing, no edema, no cyanosis, post tibial pulses palpable, no palpable pedal pulses and upper and lower extremities. The patient has a DPI over his left ankle. The patient also has a patient to me site is open and very much dry clean and intact without any purulent discharge in his left lower extremity. Noted pulses are only obtained by Doppler in lower extremities bilaterally especially in the feet. MUSCULOSKELETAL: Muscle strength cannot be assessed. The patient has a left fascia geronimo me at the level of the callus with some ongoing drainage and weeping. SPINE: No scoliosis or deformity SKIN: No rashes, , DPI in the left ankle area, and the patient is scrotal edema CENTRAL NERVOUS SYSTEM: Unable to perform as the patient is sedated PSYCHIATRIC: Unable to perform - Labs CBC & Chem 7: 10/20/18 05:00 10/20/18 05:00 Labs: Abnormal Lab Results - Last 24 Hours (Table) 10/19/18 10/20/18 10/20/18 Range/Units 12:08 05:00 05:00 WBC 17.1 H (3.8-10.6) k/uL RBC 2.73 L (4.30-5.90) m/uL Hgb 8.0 L (13.0-17.5) gm/dL Hct 23.9 L (39.0-53.0) % RDW 16.3 H (11.5-15.5) % Neutrophils # (Manual) 12.60 H (1.3-7.7) k/uL Metamyelocytes # (Man) 0.68 H (0) k/uL Myelocytes # (Manual) 0.51 H (0) k/uL Nucleated RBCs 1 H (0-0) /100 WBC APTT 63.2 H 48.8 H (22.0-30.0) sec ABG pH (7.35-7.45) ABG HCO3 (21-25) mmol/L ABG Total CO2 (19-24) mmol/L ABG O2 Saturation (94-97) % Sodium (137-145) mmol/L Chloride (98-107) mmol/L BUN (9-20) mg/dL Creatinine (0.66-1.25) mg/dL Calcium (8.4-10.2) mg/dL 10/20/18 10/20/18 Range/Units 05:00 05:17 WBC (3.8-10.6) k/uL RBC (4.30-5.90) m/uL Hgb (13.0-17.5) gm/dL Hct (39.0-53.0) % RDW (11.5-15.5) % Neutrophils # (Manual) (1.3-7.7) k/uL Metamyelocytes # (Man) (0) k/uL Myelocytes # (Manual) (0) k/uL Nucleated RBCs (0-0) /100 WBC APTT (22.0-30.0) sec ABG pH 7.49 H (7.35-7.45) ABG HCO3 29 H (21-25) mmol/L ABG Total CO2 30 H (19-24) mmol/L ABG O2 Saturation 98.1 H (94-97) % Sodium 132 L (137-145) mmol/L Chloride 95 L (98-107) mmol/L BUN 43 H (9-20) mg/dL Creatinine 3.38 H (0.66-1.25) mg/dL Calcium 7.7 L (8.4-10.2) mg/dL Microbiology - Last 24 Hours (Table) 10/16/18 10:40 Blood Culture - Preliminary Blood No Growth after 72 hours 10/16/18 10:10 Blood Culture - Preliminary Blood No Growth after 72 hours Assessment and Plan Plan: 1 peripheral vascular disease, severe and the patient is postop for a aorto bifemoral bypass surgery and the surgery was done on 10/07/2018, postop day number 13 the patient is currently on aspirin and IV heparin. The patient had a complicated course with pneumonia/ARDS/acute kidney injury and the patient is cu rrently intubated on a mechanical ventilator and the patient is undergoing dialysis. The chest x-ray continues to improve and there is significant improvement in the patient's airway pressure and oxygenation. I was able to cut down the PEEP down to 9 from as high as 20 and FiO2 is at 40%. Hemodynamically stable off pressors. 2 acute ischemic limbs postop and the patient underwent a emergent thrombectomy on the right on 10/11/2018 and on the left on 10/13/2018. 3 acute ventilator-dependent respiratory failure secondary to above, consider ARDS, vomiting infiltrates are improving. Lower lobe consolidations improving. Pro-calcitonin was elevated. The patient on IV Merrem. Repeat cultures are all negative. He is afebrile for now. The patient continues to improve and ARDS is improving and the patient seems to be recovering from his ARDS with improving airway pressure and increase in lung volumes. I updated his vent setting and increase his tidal volume of to 500 to improve his 60 with a mechanical ventilator. I also drop the respiratory rate down to 24. 3 shock, consider septic shock and the patient is currently on a combination of vasopressin and lower dose norepinephrine infusion. The patient is also on Merrem. The patient is currently off pressors 5 acute kidney injury, secondary to contrast, hypotension, pressor use. Rule out underlying ATN. The patient is currently on hemodialysis. The patient is undergoing his daily dialysis today. Over the past 4 days. Daily dialysis with a total ultrafiltration of 5 L. the patient received a total of 4 sessions of dialysis and nephrology is on the case. He is anuric for now. 6 aortic dissection, please refer to the CAT scan of the abdomen report 7 chronic kidney disease with a baseline creatinine in the range of 1.9-2 8 chronic back pain 9 hypertension, history of 10 hyperlipidemia 11 obesity with a BMI of 39.3 12 Moraxella catarrhalis and Haemophilus influenza was in the sputum, consider superinfection/pneumonia. 13 Deep tissue injury to his left heel. 14 paroxysmal atrial fibrillation current rhythm is back to sinus. Plan The patient is critically ill. Tinea vent support. Stop the PEEP down to 9. May drop it further to 7 if the saturation remains above 95%. Keep the tidal volume of 500. At the rate down to 24. Monitor the blood gas. Monitor chest x-ray. Dialysis per nephrology. The patient had [id number] dialysis on a daily basis for the past 4 days. He is warm status improved. He is currently off pressors. He is on IV Merrem. Is on IV heparin. He is on IV TPN for nutritional support. Abdomen is slightly distended and the patient continues to have hypoactive bowel sounds and I do not think he will tolerate enteral feeding for now. All of the surgical wound sites of dry clean and intact. With all this being said, the patient was given a sedation holiday. He will be also asked to be seen by general surgery in consultation for PEG and trach insertion knowing that this will be a prolonged and slow wean. We'll continue to follow. Much more stable since the beginning of the week. We'll continue to follow. This of admission was on a more than 30 minutes and the patient continues to be critically ill. Time with Patient: Greater than 30
--- NOTE | 2018-10-20 11:00 | PN ---
PROGRESS NOTE DATE OF SERVICE: 10/20/2018. CHIEF COMPLAINT: Status post aortofemoral bypass with renal failure. HISTORY OF PRESENT ILLNESS: There has been very little interval change in the last 24 hours. Continues on the ventilator. Vital signs are stable. Dialysis continues. Urine output remains negligible. PHYSICAL EXAM: Blood pressure is 118/62, respirations are controlled on the ventilator and breath sounds are heard bilaterally and cardiac exam is normal. Extremities are unchanged. IMPRESSION: 1. Anuric renal failure. 2. Status post aortofemoral bypass. 3. Atherosclerotic cardiovascular disease. 4. Chronic obstructive pulmonary disease. PLAN: Continue to follow with intensive medicine and Cardiovascular Surgery. Prognosis remains poor. MMODL / IJN: [id number] /
--- NOTE | 2018-10-20 11:16 | P.PN ---
Subjective Progress Note Date: 10/20/18 Principal diagnosis: This is a 53-year-old male who underwent aortofemoral bypass for peripheral vascular disease on 10/07/2018 , is post op day 13. He is on dialysis because of dye-induced ATN as well as hypotension. He has been dialyzed 5 days in a row as of yesterday. Today we did not dialyze him. His levo fed and vasopressin this off as of yesterday . He is not making any urine. He remains on the ventilator at 40% FiO2 on propofol drips. He remains completely obtunded. He also had post op bilateral lower extremity ischemia which required emergency thrombectomy bilaterally. Is known with chronic kidney disease stage III with baseline creatinine of about 1.3. Over the last 5 dialysis approximately 2-2-1/2 L have been ultrafiltrate. He is on TPN via IV central Objective - Vital Signs Vital signs: Vital Signs Temp 98.6 F 10/20/18 08:00 Pulse 95 10/20/18 10:49 Resp 22 10/20/18 10:00 BP 102/53 10/20/18 10:00 Pulse Ox 97 10/20/18 10:00 Intake & Output 10/19/18 10/20/18 10/20/18 18:59 06:59 18:59 Intake Total 2664.736 1220.673 384.682 Output Total 7300 37 0 Balance -4635.264 1183.673 384.682 Weight 120.1 kg Intake: IV 806 756 252 Meropenem 500 mg In 50 50 Sodium Chloride 0.9% 50 ml @ 100 mls/hr IVPB Q12HR [facility] Rx#:[id number] Normal Saline carrier 120 120 40 Pressure bag 36 36 12 TPN 600 600 150 Intake, IV Titration 1558.736 464.673 132.682 Amount Heparin Sod,Pork in 0.45% 250 250 NaCl 25,000 unit In 0.45 % NaCl 1 250ml.bag @ 18 UNITS/KG/HR 20.682 mls/hr IV .Q12H6M [facility] Rx#: [id number] Mvi, Adult No.4 with Vit 1043.333 K 10 ml Trace (Conc-1Ml/ Dose) 1 ml Sodium Acetate 35 meq Calcium Gluconate 2 gm Potassium Chloride 20 meq In Amino Acid 5%- D15w 1,000 ml @ 50 mls/hr IV .[id number] [facility] Rx#: [id number] Norepinephrine 32 mg In 9.141 16.519 Sodium Chloride 0.9% 218 ml @ 0.05 MCG/KG/MIN 2. 693 mls/hr IV .Q24H [facility] Rx#:[id number] Propofol 1,000 mg In 256.262 198.154 132.682 Empty Bag 1 bag @ Titrate IV .Q0M [facility] Rx#: [id number] Hemodialysis 300 Output: Gastric Drainage 1000 Urine 0 37 0 Hemodialysis 3300 Other 3000 Other: Voiding Method Indwelling Catheter Indwelling Catheter Indwelling Catheter # Voids 1 ABP, PAP, CO, CI - Last Documented Arterial Blood Pressure 121/60 On examination he is obtunded on propofol drip. He is on 40% FiO2. He has generalized edema. There is no facial asymmetry. Neck is supple Lungs are clear to auscultation fair air entry bilaterally Heart sounds are unremarkable normal sinus rhythm on the monitor Abdomen somewhat distended and tense absent bowel sounds. He has 2-3+ edema in his extremities Neurologically obtunded - Labs CBC & Chem 7: 10/20/18 05:00 10/20/18 05:00 Labs: Abnormal Lab Results - Last 24 Hours (Table) 10/19/18 10/20/18 10/20/18 Range/Units 12:08 05:00 05:00 WBC 17.1 H (3.8-10.6) k/uL RBC 2.73 L (4.30-5.90) m/uL Hgb 8.0 L (13.0-17.5) gm/dL Hct 23.9 L (39.0-53.0) % RDW 16.3 H (11.5-15.5) % Neutrophils # (Manual) 12.60 H (1.3-7.7) k/uL Metamyelocytes # (Man) 0.68 H (0) k/uL Myelocytes # (Manual) 0.51 H (0) k/uL Nucleated RBCs 1 H (0-0) /100 WBC APTT 63.2 H 48.8 H (22.0-30.0) sec ABG pH (7.35-7.45) ABG HCO3 (21-25) mmol/L ABG Total CO2 (19-24) mmol/L ABG O2 Saturation (94-97) % Sodium (137-145) mmol/L Chloride (98-107) mmol/L BUN (9-20) mg/dL Creatinine (0.66-1.25) mg/dL Calcium (8.4-10.2) mg/dL 10/20/18 10/20/18 Range/Units 05:00 05:17 WBC (3.8-10.6) k/uL RBC (4.30-5.90) m/uL Hgb (13.0-17.5) gm/dL Hct (39.0-53.0) % RDW (11.5-15.5) % Neutrophils # (Manual) (1.3-7.7) k/uL Metamyelocytes # (Man) (0) k/uL Myelocytes # (Manual) (0) k/uL Nucleated RBCs (0-0) /100 WBC APTT (22.0-30.0) sec ABG pH 7.49 H (7.35-7.45) ABG HCO3 29 H (21-25) mmol/L ABG Total CO2 30 H (19-24) mmol/L ABG O2 Saturation 98.1 H (94-97) % Sodium 132 L (137-145) mmol/L Chloride 95 L (98-107) mmol/L BUN 43 H (9-20) mg/dL Creatinine 3.38 H (0.66-1.25) mg/dL Calcium 7.7 L (8.4-10.2) mg/dL Microbiology - Last 24 Hours (Table) 10/16/18 10:40 Blood Culture - Preliminary Blood No Growth after 72 hours 10/16/18 10:10 Blood Culture - Preliminary Blood No Growth after 72 hours Assessment and Plan Assessment: Impression 1. Acute kidney injury secondary to contrast as well as postop complications. Currently on dialysis with the Jeronimo in the right IJ. Has been dialyzed 5 days in a row and last dialysis was yesterday 10/19/2018 he has not been dialyzed today. 2. Status post aorto femoral bypass postop day 12. Complications of postop ischemic changes in both legs requiring thrombectomy. 3. Ventilator dependent respiratory failure. 4. Inotropic support, off of it since 10/19/2018. 5. Anemia off chronic illness hemoglobin 7.8 >8. 6. Mildly hyponatremia sodium is 132 secondary to acute kidney injury and dilutional. 7. Chronic kidney disease stage III, Baseline creatinine is 1.3, etiology is nephrosclerosis 8. Mild degree of volume overload with edema. Recommendation 1. Will resume dialysis within the attempt of 3-1/2 L of ultrafiltration or 4 hours tomorrow and reassess for dialysis on a daily basis to reduce the edema. 2. Follow-up anemia. 3. Next dialysis schedule for Sunday on 10/21/2018
[2018-10-20] MEDS: [UNRECOGNIZED DRUG - REMARK] IV SCH ×6 (11:26)
--- NOTE | 2018-10-20 13:30 | PN ---
PROGRESS NOTE Mr. Agarwal had aortobifem and bilateral thrombectomy. The patient is on Vanco postop. The patient also is on dialysis. The patient is off of vasopressor. Incision in the groin and abdomen is healing good. Patient has decent Doppler signal both feet. The patient is on TPN. MMODL / IJN: [id number] /
[2018-10-20] MEDS: NOREPINEPHRINE 32 MG in SODIUM CHLORIDE 0.9% 218 ML IV SCH (15:08)
[2018-10-20] MEDS: HYDROmorphone 1 MG/ML 1 ML SYRINGE IVP PRN (20:39)
[2018-10-21] MEDS: HEPARIN SOD,PORK IN 0.45% NACL 25,000 UNIT in 0.45% NACL 1 250ML.BAG IV SCH ×2 (04:44→14:31)
[2018-10-21 04:47] LABS: Anisocytosis Slight; HCT 23.3 % (39.0-53.0); HGB 7.7 gm/dL (13.0-17.5); MCH 28.7 pg (25.0-35.0); MCV 86.9 fL (80.0-100.0); Mean Platelet Volume 8.5; Platelet Count 212 k/uL (150-450); RBC 2.68 m/uL (4.30-5.90); RDW 17.3 % (11.5-15.5); WBC 15.8 k/uL (3.8-10.6)
[2018-10-21] MEDS: PROPOFOL 1,000 MG in EMPTY BAG 1 BAG IV SCH ×2 (04:47→12:45)
[2018-10-21 05:03] LABS: ABG Base Excess 2.5 mmol/L; ABG HCO3 26 mmol/L (21-25); ABG Oxygen Saturation 98.7 % (94-97); ABG PCO2 37 mmHg (35-45); ABG PH 7.46 (7.35-7.45); ABG PO2 122 mmHg (83-108); ABG TCO2 27 mmol/L (19-24); Allen Test Performed? Yes
[2018-10-21 05:35] LABS: Band Neutrophils % 28 %; Eosinophils # (M) 0.16 k/uL (0-0.7); Lymphocytes # (M) 0.47 k/uL (1.0-4.8); Metamyelocytes # (M) 0.95 k/uL (0); Metamyelocytes % 6 %; Monocytes # (M) 1.58 k/uL (0-1.0); Myelocytes # (M) 0.63 k/uL (0); Myelocytes % 4 %; Neutrophils % (M) 49 %; Nucleated Red Blood Cells 0 /100 WBC (0-0); Total Cells Counted 200
[2018-10-21 05:37] LABS: Anisocytosis (M) Present; Polychromasia Present; Toxic Granulation Present
[2018-10-21 05:51] LABS: Magnesium 2.1 mg/dL (1.6-2.3); Phosphorus 4.1 mg/dL (2.5-4.5); Potassium 3.9 mmol/L (3.5-5.1)
[2018-10-21] MEDS: [UNRECOGNIZED DRUG - REMARK] IV SCH ×6 (06:36)
[2018-10-21] MEDS: IPRATROPIUM-ALBUTEROL 3 ML NEB INHALATION SCH ×4 (07:31→19:29)
--- NOTE | 2018-10-21 08:07 | XR ---
EXAMINATION TYPE: XR chest 1V portable DATE OF EXAM: 10/21/2018 COMPARISON: Prior chest x-ray 10/20/2018 HISTORY: Intubated TECHNIQUE: Single frontal view of the chest is obtained. FINDINGS: Endotracheal tube, orogastric tube are overlying appropriate positions, left jugular centr al venous catheter shows the distal tip over the cavoatrial junction, right central venous catheter s hows the distal tip over the superior vena cava. No pneumothorax. Mixed interstitial and airspace dis ease present again within the lungs. Heart size is stable. IMPRESSION: Correlate for volume overload, congestive heart failure, there may be basilar effusion, pneumonia not excluded.
[2018-10-21] MEDS: ASPIRIN 81 MG PO SCH (08:44)
[2018-10-21] MEDS: CHLORHEXIDINE GLUCONATE 15 ML CUP MUCOUS MEM SCH ×2 (08:44→20:00)
[2018-10-21] MEDS: AMIODARONE 200 MG TAB PO SCH ×2 (08:44→19:59)
[2018-10-21] MEDS: MEROPENEM 500 MG in SODIUM CHLORIDE 0.9% 50 ML IVPB SCH (08:44)
[2018-10-21] MEDS: GABAPENTIN 300 MG CAP PO SCH ×3 (08:44→19:59)
[2018-10-21] MEDS: PANTOPRAZOLE 40 MG/10 ML VIAL IVP SCH (08:45)
[2018-10-21] MEDS: FENOFIBRATE 160 MG TAB PO SCH (08:45)
--- NOTE | 2018-10-21 08:47 | P.PN ---
Subjective Patient is seen in follow-up for acute kidney injury, currently hemodialysis dependent. Patient underwent aortobifemoral bypass graft on 10/07/2018 with right common femoral thromboendarterectomy. He's been off vasopressors since October 20. Remains oliguric. Scheduled for tracheostomy and PEG tube placement today. Vital signs are stable. General: The patient appeared well nourished and normally developed. Intubated. HEENT: Head exam is unremarkable. Neck is without jugular venous distension. LUNGS: Lungs are clear to auscultation and percussion. Breath sounds decreased. HEART: Rate and Rhythm are regular. First and second heart sounds normal. No murmurs, rubs or gallops. ABDOMEN: Abdominal exam reveals normal bowel sounds. Non-tender and non- distended. No evidence of peritonitis. EXTREMITITES: 1+ edema. No obvious drainage noted. Objective - Vital Signs Vital signs: Vital Signs Temp 98.7 F 10/21/18 04:00 Pulse 90 10/21/18 07:48 Resp 23 10/21/18 07:00 BP 116/46 10/21/18 06:30 Pulse Ox 99 10/21/18 07:00 Intake & Output 10/20/18 10/21/18 10/21/18 18:59 06:59 18:59 Intake Total 2244.021 2177.333 63 Output Total 635 70 5 Balance 8679.406 1291.333 58 Weight 121.9 kg Intake: IV 756 869 63 Meropenem 500 mg In 50 50 Sodium Chloride 0.9% 50 ml @ 100 mls/hr IVPB Q12HR [facility] Rx#:[id number] Normal Saline carrier 120 130 10 Pressure bag 36 39 3 TPN 550 650 50 Intake, IV Titration 9260.171 3331.333 Amount Heparin Sod,Pork in 0.45% 250 250 NaCl 25,000 unit In 0.45 % NaCl 1 250ml.bag @ 18 UNITS/KG/HR 20.682 mls/hr IV .Q12H6M [facility] Rx#: [id number] Mvi, Adult No.4 with Vit 1058.5 958.333 K 10 ml Trace (Conc-1Ml/ Dose) 1 ml Sodium Acetate 35 meq Calcium Gluconate 2 gm Potassium Chloride 20 meq In Amino Acid 5%- D15w 1,000 ml @ 50 mls/hr IV .[id number] [facility] Rx#: [id number] Propofol 1,000 mg In 179.521 100 Empty Bag 1 bag @ Titrate IV .Q0M [facility] Rx#: [id number] Oral 0 Output: Gastric Drainage 600 Urine 35 70 5 Other: Voiding Method Indwelling Catheter Indwelling Catheter ABP, PAP, CO, CI - Last Documented Arterial Blood Pressure 108/42 - Labs CBC & Chem 7: 10/21/18 04:35 10/21/18 04:35 Labs: Abnormal Lab Results - Last 24 Hours (Table) 10/20/18 10/21/18 10/21/18 Range/Units 05:00 04:35 04:35 WBC 17.1 H 15.8 H (3.8-10.6) k/uL RBC 2.68 L (4.30-5.90) m/uL Hgb 7.7 L (13.0-17.5) gm/dL Hct 23.3 L (39.0-53.0) % RDW 17.3 H (11.5-15.5) % Neutrophils # (Manual) 12.60 H 12.10 H (1.3-7.7) k/uL Lymphocytes # (Manual) 0.47 L (1.0-4.8) k/uL Monocytes # (Manual) 1.58 H (0-1.0) k/uL Metamyelocytes # (Man) 0.68 H 0.95 H (0) k/uL Myelocytes # (Manual) 0.51 H 0.63 H (0) k/uL Nucleated RBCs 1 H (0-0) /100 WBC APTT 53.0 H (22.0-30.0) sec ABG pH (7.35-7.45) ABG pO2 (83-108) mmHg ABG HCO3 (21-25) mmol/L ABG Total CO2 (19-24) mmol/L ABG O2 Saturation (94-97) % Sodium (137-145) mmol/L Chloride (98-107) mmol/L BUN (9-20) mg/dL Creatinine (0.66-1.25) mg/dL Calcium (8.4-10.2) mg/dL 10/21/18 10/21/18 Range/Units 04:35 04:58 WBC (3.8-10.6) k/uL RBC (4.30-5.90) m/uL Hgb (13.0-17.5) gm/dL Hct (39.0-53.0) % RDW (11.5-15.5) % Neutrophils # (Manual) (1.3-7.7) k/uL Lymphocytes # (Manual) (1.0-4.8) k/uL Monocytes # (Manual) (0-1.0) k/uL Metamyelocytes # (Man) (0) k/uL Myelocytes # (Manual) (0) k/uL Nucleated RBCs (0-0) /100 WBC APTT (22.0-30.0) sec ABG pH 7.46 H (7.35-7.45) ABG pO2 122 H (83-108) mmHg ABG HCO3 26 H (21-25) mmol/L ABG Total CO2 27 H (19-24) mmol/L ABG O2 Saturation 98.7 H (94-97) % Sodium 131 L (137-145) mmol/L Chloride 94 L (98-107) mmol/L BUN 66 H (9-20) mg/dL Creatinine 5.03 H (0.66-1.25) mg/dL Calcium 8.0 L (8.4-10.2) mg/dL Microbiology - Last 24 Hours (Table) 10/16/18 10:40 Blood Culture - Preliminary Blood No Growth after 96 hours 10/16/18 10:10 Blood Culture - Preliminary Blood No Growth after 96 hours Assessment and Plan Plan: Assessment: 1. Acute kidney injury secondary to ATN secondary to hypotension. Currently hemodialysis dependent. No evidence of renal recovery at this time. Patient's creatinine in August 2018 was in the range of 1.3-1.7. 2. 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 Vascular surgery following. 3. Volume overload. 4. A. fib with RVR. Now rate controlled. 5. Chronic kidney disease stage III secondary to nephrosclerosis. Baseline creatinine in the range of 1.3-1.7. 6. Anemia of chronic illness. 7. Hypervolemic hyponatremia. Plan: Hemodialysis today with goal 2-3 L ultrafiltration as able to tolerate. Patient will need a tunneled catheter prior to discharge. No evidence of renal recovery at this time. Check iron studies.
[2018-10-21] MEDS: BISACODYL 10 MG SUPP RECTAL SCH (11:45)
--- NOTE | 2018-10-21 11:48 | P.PN ---
Subjective Progress Note Date: 10/21/18 Principal diagnosis: Respiratory failure Patient has been stable overnight. Off pressors. Oxygen requirements/ventilatory requirements improved. Patient is being dialyzed today . Objective - Vital Signs Vital signs: Vital Signs Temp 99.1 F 10/21/18 08:00 Pulse 88 10/21/18 11:38 Resp 25 H 10/21/18 11:00 BP 112/61 10/21/18 11:00 Pulse Ox 99 10/21/18 11:00 Intake & Output 10/20/18 10/21/18 10/21/18 18:59 06:59 18:59 Intake Total 2244.021 2177.333 393.314 Output Total 635 70 25 Balance 8676.705 9180.333 368.314 Weight 121.9 kg 121.9 kg Intake: IV 756 869 352 Meropenem 500 mg In 50 50 100 Sodium Chloride 0.9% 50 ml @ 100 mls/hr IVPB Q12HR [facility] Rx#:[id number] Normal Saline carrier 120 130 40 Pressure bag 36 39 12 TPN 550 650 200 Intake, IV Titration 8376.696 6420.333 41.314 Amount Heparin Sod,Pork in 0.45% 250 250 NaCl 25,000 unit In 0.45 % NaCl 1 250ml.bag @ 18 UNITS/KG/HR 20.682 mls/hr IV .Q12H6M [facility] Rx#: [id number] Mvi, Adult No.4 with Vit 1058.5 958.333 K 10 ml Trace (Conc-1Ml/ Dose) 1 ml Sodium Acetate 35 meq Calcium Gluconate 2 gm Potassium Chloride 20 meq In Amino Acid 5%- D15w 1,000 ml @ 50 mls/hr IV .[id number] [facility] Rx#: [id number] Propofol 1,000 mg In 179.521 100 41.314 Empty Bag 1 bag @ Titrate IV .Q0M [facility] Rx#: [id number] Oral 0 Output: Gastric Drainage 600 Urine 35 70 25 Other: Voiding Method Indwelling Catheter Indwelling Catheter Indwelling Catheter ABP, PAP, CO, CI - Last Documented Arterial Blood Pressure 90/39 - Exam Abdomen: Soft, mild distention, mild tenderness, dressing clean and dry - Labs CBC & Chem 7: 10/21/18 04:35 10/21/18 04:35 Labs: Abnormal Lab Results - Last 24 Hours (Table) 10/21/18 10/21/18 10/21/18 Range/Units 04:35 04:35 04:35 WBC 15.8 H (3.8-10.6) k/uL RBC 2.68 L (4.30-5.90) m/uL Hgb 7.7 L (13.0-17.5) gm/dL Hct 23.3 L (39.0-53.0) % RDW 17.3 H (11.5-15.5) % Neutrophils # (Manual) 12.10 H (1.3-7.7) k/uL Lymphocytes # (Manual) 0.47 L (1.0-4.8) k/uL Monocytes # (Manual) 1.58 H (0-1.0) k/uL Metamyelocytes # (Man) 0.95 H (0) k/uL Myelocytes # (Manual) 0.63 H (0) k/uL APTT 53.0 H (22.0-30.0) sec ABG pH (7.35-7.45) ABG pO2 (83-108) mmHg ABG HCO3 (21-25) mmol/L ABG Total CO2 (19-24) mmol/L ABG O2 Saturation (94-97) % Sodium 131 L (137-145) mmol/L Chloride 94 L (98-107) mmol/L BUN 66 H (9-20) mg/dL Creatinine 5.03 H (0.66-1.25) mg/dL Calcium 8.0 L (8.4-10.2) mg/dL 10/21/18 Range/Units 04:58 WBC (3.8-10.6) k/uL RBC (4.30-5.90) m/uL Hgb (13.0-17.5) gm/dL Hct (39.0-53.0) % RDW (11.5-15.5) % Neutrophils # (Manual) (1.3-7.7) k/uL Lymphocytes # (Manual) (1.0-4.8) k/uL Monocytes # (Manual) (0-1.0) k/uL Metamyelocytes # (Man) (0) k/uL Myelocytes # (Manual) (0) k/uL APTT (22.0-30.0) sec ABG pH 7.46 H (7.35-7.45) ABG pO2 122 H (83-108) mmHg ABG HCO3 26 H (21-25) mmol/L ABG Total CO2 27 H (19-24) mmol/L ABG O2 Saturation 98.7 H (94-97) % Sodium (137-145) mmol/L Chloride (98-107) mmol/L BUN (9-20) mg/dL Creatinine (0.66-1.25) mg/dL Calcium (8.4-10.2) mg/dL Microbiology - Last 24 Hours (Table) 10/16/18 10:40 Blood Culture - Preliminary Blood No Growth after 96 hours 10/16/18 10:10 Blood Culture - Preliminary Blood No Growth after 96 hours Assessment and Plan (1) Respiratory failure Narrative/Plan: Spoke with the patient's sister by phone. We'll proceed with tracheostomy and possible PEG tube placement. Initially we were planning to do this possibly today. Because of operating room scheduling issues and the patient's dialysis will plan proceeding with surgery tomorrow morning. Will discuss further with pulmonary regarding PEG placement now or possibly as the patient's ileus improves. Current Visit: Yes Status: Acute Code(s): J96.90 - RESPIRATORY FAILURE, UNSP, UNSP W HYPOXIA OR HYPERCAPNIA SNOMED Code(s): 985900722
--- NOTE | 2018-10-21 12:34 | PN ---
PROGRESS NOTE DATE OF SERVICE: 10/21/2018 CHIEF COMPLAINT: Anuric renal failure, COPD, ASCVD. HISTORY OF PRESENT ILLNESS: This gentleman's situation continues to be fairly stable. It is planned that he is going to go today for a PEG tube and a trach. His course is still kristina. He is off pressors. He is not making urine. He is minimally responsive neurologically when his sedation starts to wear off. PHYSICAL EXAMINATION: Blood pressure is a 107/50. Color is good. He is well perfused. Breath sounds are heard bilaterally. Cardiac exam is normal. Extremities are perfused. IMPRESSION: 1. Status post aortofemoral bypass. 2. Atherosclerotic cardiovascular disease. 3. Peripheral vascular occlusive disease. 4. Chronic obstructive pulmonary disease. 5. ARDS-resolving. 6. Anuric renal failure. PLAN: 1. Tracheostomy is planned for today. 2. Placement of PEG tube is planned for today. 3. He continues to be dialyzed. MMODL / IJN: [id number] /
--- NOTE | 2018-10-21 12:37 | P.PN ---
Subjective Progress Note Date: 10/21/18 Principal diagnosis: acute ventilator-dependent hypoxic respiratory failure secondary to aspiration pneumonia and ARDS. On 10/20/2018 of seeing this patient for a follow-up. The patient is sedated on 30 mics of propofol. He was able to come off sedation adequately yesterday as the patient became restless and they suggested a mechanical ventilator. This morning it is back on sedation. He was on a PEEP of 11 with an FiO2 of 40% and a rate of 400 and respiratory rate of 32. I realize that the patient ever pressure lower and he was sucking way higher tidal volumes as with provided to him through the mechanical ventilator. Based on that, switch this patient to a VC plus mode and increase the tidal volume to 500 and dropped a respiratory rate up to 24 and dropped PEEP down to 9 keeping the FiO2 at 40% and the chest x-ray shows improvement of breath and pulmonary infiltrates. The patient's airway pressure steadily on the decline. Lower lobe consolidation improving and the patient is currently on IV meropenem. He is on TPN for nutritional support. Abdomen is slightly distended and hypoactive bowel sounds. Orogastric tube is in place. Surgical abdominal wound site is dry clean and intact. The groin wounds are clean and intact. Pulses in the lower extremities are obtained and measured by Doppler. He has undergone 4 sessions of hemodialysis and the lacer ation was done yesterday without any complication with significant ultrafiltration. He is afebrile. He is hemodynamically stable on no pressors and both of vasopressin and levo fed has been discontinued. I am thinking and the patient will be a difficult wean and is reasonable to consider a PEG and trach special with above-mentioned medical problems and comorbidities encountered over the past 1 week. His white cell count is 17. Hemoglobin stable at 8.0. The patient remains on IV heparin. PH is 7.49 with a pCO2 of 38 and pO2 of 103. There is scrotal edema which is also improving. Reevaluated today on 10/21/2018, patient remains on mechanical ventilation, sedated, presently on assist control rate of 22, FiO2 of 45%, tidal volume of 500, and PEEP of 6. patient is actually on volume control plus mode of mechanical ventilation. Hence his tidal volume varies from breast of breath. I was able to drop the PEEP down to 6 today. Patient seems to be ventilating quite well. He is hemodynamically stable today, off all pressors, remains on antibiotics for left lower lobe consolidation and fever, he is on Merrem. Remains on TPN, and he may undergo tracheostomy and PEG tube placement today by Dr. rodriguez. However he is yet to have his dialysis this morning.WBC count is 15.8 hemoglobin is 7.7. ABG this morning showed a pO2 of 122 pCO2 of 37 pH of 7.46.worsening renal profile is noted today, BUN is 66 creatinine is 5.03, patient remains oliguric, roughly about 30 mL of urine per shift. Objective - Vital Signs Vital signs: Vital Signs Temp 98.9 F 10/21/18 12:00 Pulse 90 10/21/18 12:00 Resp 26 H 10/21/18 12:00 BP 104/60 10/21/18 12:00 Pulse Ox 93 L 10/21/18 12:00 Intake & Output 10/20/18 10/21/18 10/21/18 18:59 06:59 18:59 Intake Total 2244.021 2177.333 456.314 Output Total 635 70 25 Balance 6243.310 3403.333 431.314 Weight 121.9 kg 121.9 kg Intake: IV 756 869 415 Meropenem 500 mg In 50 50 100 Sodium Chloride 0.9% 50 ml @ 100 mls/hr IVPB Q12HR [facility] Rx#:[id number] Normal Saline carrier 120 130 50 Pressure bag 36 39 15 TPN 550 650 250 Intake, IV Titration 1937.494 1724.333 41.314 Amount Heparin Sod,Pork in 0.45% 250 250 NaCl 25,000 unit In 0.45 % NaCl 1 250ml.bag @ 18 UNITS/KG/HR 20.682 mls/hr IV .Q12H6M [facility] Rx#: [id number] Mvi, Adult No.4 with Vit 1058.5 958.333 K 10 ml Trace (Conc-1Ml/ Dose) 1 ml Sodium Acetate 35 meq Calcium Gluconate 2 gm Potassium Chloride 20 meq In Amino Acid 5%- D15w 1,000 ml @ 50 mls/hr IV .[id number] [facility] Rx#: [id number] Propofol 1,000 mg In 179.521 100 41.314 Empty Bag 1 bag @ Titrate IV .Q0M [facility] Rx#: [id number] Oral 0 Output: Gastric Drainage 600 Urine 35 70 25 Other: Voiding Method Indwelling Catheter Indwelling Catheter Indwelling Catheter ABP, PAP, CO, CI - Last Documented Arterial Blood Pressure 84/37 - Exam GENERAL EXAM: revealed a 53-year-old white male on mechanical ventilation, sedated, in no distress. On propofol. HEAD: Normocephalic/atraumatic. EENT: PERRLA, EOMI, endotracheal tube is intact, no neck masses, no JVD. Lines were noted. CHEST: No chest wall deformity. Symmetrical expansion. LUNGS:minimal fine crackles at the bases. No rhonchi and no wheezes. CVS: normal S1 and S2, no gallops. No murmur. ABDOMEN:soft nontender no megaly. Diminished bowel sounds. Midabdominal and Bilateral groin incisions, left groin incision with wound VAC in place. EXTREMITIES: No clubbing, no edema, no cyanosis, post tibial pulses palpable, no palpable pedal pulses and upper and lower extremities. The patient has a DPI over his left ankle. The patient also has a patient to ct site is open and very much dry clean and intact without any purulent discharge in his left lower extremity. MUSCULOSKELETAL: cannot be assessed. Patient is sedated on mechanical ventilation SKIN: No rashes, , DPI in the left ankle area, and the patient is scrotal edema CENTRAL NERVOUS SYSTEM: Unable to perform as the patient is sedated PSYCHIATRIC: Unable to perform - Labs CBC & Chem 7: 10/21/18 04:35 10/21/18 04:35 Labs: Abnormal Lab Results - Last 24 Hours (Table) 10/21/18 10/21/18 10/21/18 Range/Units 04:35 04:35 04:35 WBC 15.8 H (3.8-10.6) k/uL RBC 2.68 L (4.30-5.90) m/uL Hgb 7.7 L (13.0-17.5) gm/dL Hct 23.3 L (39.0-53.0) % RDW 17.3 H (11.5-15.5) % Neutrophils # (Manual) 12.10 H (1.3-7.7) k/uL Lymphocytes # (Manual) 0.47 L (1.0-4.8) k/uL Monocytes # (Manual) 1.58 H (0-1.0) k/uL Metamyelocytes # (Man) 0.95 H (0) k/uL Myelocytes # (Manual) 0.63 H (0) k/uL APTT 53.0 H (22.0-30.0) sec ABG pH (7.35-7.45) ABG pO2 (83-108) mmHg ABG HCO3 (21-25) mmol/L ABG Total CO2 (19-24) mmol/L ABG O2 Saturation (94-97) % Sodium 131 L (137-145) mmol/L Chloride 94 L (98-107) mmol/L BUN 66 H (9-20) mg/dL Creatinine 5.03 H (0.66-1.25) mg/dL Calcium 8.0 L (8.4-10.2) mg/dL 10/21/18 Range/Units 04:58 WBC (3.8-10.6) k/uL RBC (4.30-5.90) m/uL Hgb (13.0-17.5) gm/dL Hct (39.0-53.0) % RDW (11.5-15.5) % Neutrophils # (Manual) (1.3-7.7) k/uL Lymphocytes # (Manual) (1.0-4.8) k/uL Monocytes # (Manual) (0-1.0) k/uL Metamyelocytes # (Man) (0) k/uL Myelocytes # (Manual) (0) k/uL APTT (22.0-30.0) sec ABG pH 7.46 H (7.35-7.45) ABG pO2 122 H (83-108) mmHg ABG HCO3 26 H (21-25) mmol/L ABG Total CO2 27 H (19-24) mmol/L ABG O2 Saturation 98.7 H (94-97) % Sodium (137-145) mmol/L Chloride (98-107) mmol/L BUN (9-20) mg/dL Creatinine (0.66-1.25) mg/dL Calcium (8.4-10.2) mg/dL Microbiology - Last 24 Hours (Table) 10/16/18 10:10 Blood Culture - Preliminary Blood No Growth after 120 hours 10/16/18 10:40 Blood Culture - Preliminary Blood No Growth after 96 hours Assessment and Plan Assessment: impression: 1 acute ventilator-dependent hypoxic respiratory failure secondary to pneumonia and ARDS. most likely secondary to Moraxella catarrhalis and Haemophilus influenza as noted on the positive sputum cultures.patient remains on Merrem. 2 peripheral vessel occlusive disease, status post aortobifemoral bypass surgery on 11/03/2018, with complicated course complicated by pneumonia and ARDS acute kidney injury 3 acute ischemic limbs postop requiring emergent thrombectomy on the right on 10/11/2018 and on the left on 10/23/2018. 4 acute septic shock is likely based on the fact that the patient required significant MR pressors at one point. However presently resolved. 5 acute kidney injury/acute tubular necrosis secondary to sepsis. Patient re caitlin on hemodialysis. 6 aortic dissection as noted on CT of the abdomen 7 chronic back pain 8 obesityBMI of 39.3 9 deep tissue injury to his left heel 10 paroxysmal atrial fibrillation recommendation: Patient remains critically ill, his ventilator settings were adjusted accordingly based on the ABG, PEEP is down to 6, Tidal volume the same, patient is to be dialyzed today, he may even undergo tracheostomy and PEG tube placement today. Continue Merrem, continue heparin, continue TPN, continue GI and DVT prophylaxis, discussed his condition with Dr. rodriguez, and he may taken today or tomorrow for tracheostomy. Weaning will be extremely difficult on this patient. Prognosis remains extremely poor and guarded.critical care time is 40 minutes Time with Patient: Greater than 30
[2018-10-21] MEDS ORDERED: VANCOMYCIN IV PER PHARMACY 1 EACH MISC MISCELLANE PRN (16:21)
[2018-10-21] MEDS ORDERED: VANCOMYCIN 2,000 MG in SODIUM CHLORIDE 0.9% 500 ML 500 ML IVPB ONE (16:30)
[2018-10-21 16:44] LABS: Iron Saturation 10.31 (15.00-50.00)
[2018-10-21] MEDS: COLLAGENASE 250 UNIT/GM OINTMENT 30 GM TUBE TOPICAL SCH (17:03)
[2018-10-21] MEDS: NOREPINEPHRINE 32 MG in SODIUM CHLORIDE 0.9% 218 ML IV SCH (17:05)
--- NOTE | 2018-10-21 17:10 | P.PN ---
Subjective Progress Note Date: 10/21/18 Principal diagnosis: Day 14 status post aortobifemoral bypass requiring aortic and femoral thromboendarterectomy. Status post reexploration and thromboendarterectomy of the graft 2. Patient seems to shown some improvement in the last few days with significantly decreased requirements for pressors. Patient has been tolerating dialysis. Ventilator status has improved with the patient currently on 6 of PEEP and 45% FiO2. Still has fairly significant NG tube output but is having small stools with suppositories Objective - Vital Signs Vital signs: Vital Signs Temp 97.6 F 10/21/18 16:01 Pulse 90 10/21/18 16:20 Resp 27 H 10/21/18 16:01 BP 114/66 10/21/18 16:01 Pulse Ox 99 10/21/18 16:00 Intake & Output 10/20/18 10/21/18 10/21/18 18:59 06:59 18:59 Intake Total 2244.021 2177.333 962.429 Output Total 162 12 5400 Balance 9651.041 9510.333 -1218.571 Weight 121.9 kg 121.9 kg Intake: IV 756 869 667 Meropenem 500 mg In 50 50 100 Sodium Chloride 0.9% 50 ml @ 100 mls/hr IVPB Q12HR [facility] Rx#:[id number] Normal Saline carrier 120 130 90 Pressure bag 36 39 27 TPN 550 650 450 Intake, IV Titration 1688.653 6372.333 295.429 Amount Heparin Sod,Pork in 0.45% 250 250 221.446 NaCl 25,000 unit In 0.45 % NaCl 1 250ml.bag @ 18 UNITS/KG/HR 20.682 mls/hr IV .Q12H6M [facility] Rx#: [id number] Mvi, Adult No.4 with Vit 1058.5 958.333 K 10 ml Trace (Conc-1Ml/ Dose) 1 ml Sodium Acetate 35 meq Calcium Gluconate 2 gm Potassium Chloride 20 meq In Amino Acid 5%- D15w 1,000 ml @ 50 mls/hr IV .[id number] [facility] Rx#: [id number] Propofol 1,000 mg In 179.521 100 73.983 Empty Bag 1 bag @ Titrate IV .Q0M [facility] Rx#: [id number] Oral 0 Output: Gastric Drainage 600 Urine 35 70 47 Hemodialysis 4 Other: Voiding Method Indwelling Catheter Indwelling Catheter Indwelling Catheter ABP, PAP, CO, CI - Last Documented Arterial Blood Pressure 104/58 - Exam Patient is currently sedated and on the vent. Abdomen is softly distended. Fasciotomy incisions are clean. Feet are fairly normal in color. Patient apparently has bilateral buttocks decubitus as well as lesser decubitus on both heels posteriorly. - Labs CBC & Chem 7: 10/21/18 04:35 10/21/18 04:35 Labs: Abnormal Lab Results - Last 24 Hours (Table) 10/21/18 10/21/18 10/21/18 Range/Units 04:35 04:35 04:35 WBC 15.8 H (3.8-10.6) k/uL RBC 2.68 L (4.30-5.90) m/uL Hgb 7.7 L (13.0-17.5) gm/dL Hct 23.3 L (39.0-53.0) % RDW 17.3 H (11.5-15.5) % Neutrophils # (Manual) 12.10 H (1.3-7.7) k/uL Lymphocytes # (Manual) 0.47 L (1.0-4.8) k/uL Monocytes # (Manual) 1.58 H (0-1.0) k/uL Metamyelocytes # (Man) 0.95 H (0) k/uL Myelocytes # (Manual) 0.63 H (0) k/uL APTT 53.0 H (22.0-30.0) sec ABG pH (7.35-7.45) ABG pO2 (83-108) mmHg ABG HCO3 (21-25) mmol/L ABG Total CO2 (19-24) mmol/L ABG O2 Saturation (94-97) % Sodium 131 L (137-145) mmol/L Chloride 94 L (98-107) mmol/L BUN 66 H (9-20) mg/dL Creatinine 5.03 H (0.66-1.25) mg/dL Calcium 8.0 L (8.4-10.2) mg/dL Iron (65-175) ug/dL TIBC (228-460) ug/dL Iron Saturation (15.00-50.00) 10/21/18 10/21/18 Range/Units 04:35 04:58 WBC (3.8-10.6) k/uL RBC (4.30-5.90) m/uL Hgb (13.0-17.5) gm/dL Hct (39.0-53.0) % RDW (11.5-15.5) % Neutrophils # (Manual) (1.3-7.7) k/uL Lymphocytes # (Manual) (1.0-4.8) k/uL Monocytes # (Manual) (0-1.0) k/uL Metamyelocytes # (Man) (0) k/uL Myelocytes # (Manual) (0) k/uL APTT (22.0-30.0) sec ABG pH 7.46 H (7.35-7.45) ABG pO2 122 H (83-108) mmHg ABG HCO3 26 H (21-25) mmol/L ABG Total CO2 27 H (19-24) mmol/L ABG O2 Saturation 98.7 H (94-97) % Sodium (137-145) mmol/L Chloride (98-107) mmol/L BUN (9-20) mg/dL Creatinine (0.66-1.25) mg/dL Calcium (8.4-10.2) mg/dL Iron 23 L (65-175) ug/dL TIBC 223 L (228-460) ug/dL Iron Saturation 10.31 L (15.00-50.00) Microbiology - Last 24 Hours (Table) 10/16/18 10:40 Blood Culture - Preliminary Blood No Growth after 120 hours 10/16/18 10:10 Blood Culture - Preliminary Blood No Growth after 120 hours - Imaging and Cardiology Chest x-ray: image reviewed (Chest x-ray has significantly improved) Assessment and Plan Assessment: In spite of multisystem failure and multiple complications, the patient appears to be showing some signs of slow improvement. His condition status and prognosis are still quite guarded. Plan: The patient is land for tracheostomy and possibly a PEG per Dr. Avitia tomorrow. His wounds are all being well cared for. Consideration for vent weaning will begin slowly after tracheostomy. Tube feedings will be begun cautiously with close attention to residuals. Dialysis will continue. In general patient will continue on multispecialty care mode.
[2018-10-21] MEDS: HYDROmorphone 1 MG/ML 1 ML SYRINGE IVP PRN (17:54)
--- NOTE | 2018-10-21 22:58 | P.CONS ---
History of Present Illness - Reason for Consult Consult date: 10/21/18 - Chief Complaint Ulcerations - History of Present Illness 53-year-old male with multiple medical troubles including COPD and severe peripheral vascular disease. Upon his presentation to hospital was noted that he had a greater than one-year history of worsening claudication to the low er extremities. Family members relate that he get an appointment hemorrhages could barely move about because of the weakness and pain to his lower extremities. 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 The patient has had ongoing difficulties since that point in time. 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 He required reoperation with thrombectomy of the aorta and then of the right femoral component that of the left femoral component. His status continued to decline he developed worsening renal failure and required dialysis catheter be placed and is now receiving hemodialysis also. When the left femoral portion of the graft occluded the patient developed severe swelling to the left calf area and underwent fasciotomies. He was having significant drainage from his areas which have now dried up and is evidence of the significant fasciotomy wounds that had drainage that has been somewhat foul. Is also developed bilateral deep tissue injuries to his heels and the significant eschar to his buttocks. With all of these difficulties the consult was requested. The patient has been hospitalized 14 days and it was noted originally cultures of the sputum showed evidence of Moraxella and Haemophilus influenza. He has had significant leukocytosis also an ongoing respiratory failure. The fasciotomy procedure was on October 13. With evidence of concerns to the wounds the pneumonia and antibiotic needs the consult was requested. Review of Systems ROS unobtainable: due to endotracheal tube Past Medical History Past Medical History: Hypertension, Osteoarthritis (OA), Thyroid Disorder, Vascular Disorder Additional Past Medical History / Comment(s): "no blood flow to legs", arthritis in lower back, edema of lower legs, occ swelling in fingers History of Any Multi-Drug Resistant Organisms: None Reported Past Surgical History: No Surgical Hx Reported Past Anesthesia/Blood Transfusion Reactions: No Reported Reaction Smoking Status: Current some day smoker - Past Family History Sister(s) Family Medical History: Cancer Medications and Allergies Home Medications and Allergies Comment(s): Current Medications Albuterol/Ipratropium (Duoneb 0.5 Mg-3 Mg/3 Ml Soln) 3 ml INHALATION RT-QID [facility] Last Admin: 10/21/18 19:29 Dose: 3 ml Documented by: Albuterol/Ipratropium (Duoneb 0.5 Mg-3 Mg/3 Ml Soln) 3 ml INHALATION RT-Q2H PRN PRN Reason: Shortness Of Breath Or Wheezing Last Admin: 10/19/18 23:20 Dose: 3 ml Documented by: Amiodarone HCl (Cordarone) 200 mg PO BID [facility] Last Admin: 10/21/18 19:59 Dose: 200 mg Documented by: Aspirin (Aspirin) 81 mg PO DAILY [facility] Last Admin: 10/21/18 08:44 Dose: 81 mg Documented by: Bisacodyl (Dulcolax) 10 mg RECTAL DAILY [facility] Last Admin: 10/21/18 11:45 Dose: 10 mg Documented by: Chlorhexidine Gluconate (Peridex) 15 ml MUCOUS MEM BID [facility] Last Admin: 10/21/18 20:00 Dose: 15 ml Documented by: Collagenase (Santyl) 1 applic TOPICAL DAILY [facility] Last Admin: 10/21/18 17:03 Dose: 1 applic Documented by: Fenofibrate (Lofibra) 160 mg PO DAILY [facility] Last Admin: 10/21/18 08:45 Dose: 160 mg Documented by: Gabapentin (Neurontin) 300 mg PO TID [facility] Last Admin: 10/21/18 19:59 Dose: 300 mg Documented by: Heparin Sodium (Porcine) (Heparin) 0 unit IV PER PROTOCOL PRN; Protocol PRN Reason: Low PTT Hydromorphone HCl (Dilaudid) 1 mg IVP Q4HR PRN PRN Reason: pain Last Admin: 10/21/18 17:54 Dose: 1 mg Documented by: Propofol 1,000 mg/ IV Solution 100 mls @ 0 mls/hr IV .Q0M [facility]; Protocol Last Admin: 10/21/18 12:45 Dose: 20 mcg/kg/min, 14.628 mls/hr Documented by: Norepinephrine Bitartrate 32 (mg/ Sodium Chloride) 250 mls @ 2.693 mls/hr IV .Q24H [facility]; Protocol Last Admin: 10/21/18 17:05 Dose: Not Given Documented by: Heparin Sodium/Sodium Chloride (25,000 unit/ Sodium Chloride) 250 mls @ 20.682 mls/hr IV .Q12H6M [facility]; Protocol Last Admin: 10/21/18 14:31 Dose: 19.7 units/kg/hr, 22.635 mls/hr Documented by: Parenteral Vitamin Supplement 10 ml/ Chromium/Copper/Manganese/Seleni/Zn 1 ml/Sodium Acetate 35 meq/ Calcium Gluconate 2 gm/ Potassium Chloride 20 meq/ Amino Acids/Dextrose 1,058.5 mls @ 50 mls/hr IV .[id number] [facility] Stop: 10/22/18 03:29 Last Admin: 10/21/18 06:36 Dose: 50 mls/hr Documented by: Parenteral Vitamin Supplement 10 ml/ Chromium/Copper/Manganese/Seleni/Zn 1 ml/Sodium Acetate 35 meq/ Calcium Gluconate 2 gm/ Potassium Chloride 20 meq/ Sodium Chloride 10 meq/ Amino Acids/Dextrose 1,062.5 mls @ 50 mls/hr IV .[id number] [facility] Ceftriaxone Sodium 2 gm/ (Sodium Chloride) 50 mls @ 100 mls/hr IVPB Q24HR [facility] Last Admin: 10/21/18 19:57 Dose: 100 mls/hr Documented by: Vancomycin HCl 2,000 mg/ (Sodium Chloride) 500 mls @ 167 mls/hr IVPB ONCE ONE Stop: 10/22/18 14:59 Lidocaine HCl (.Xylocaine 1% Inj (10mg/Ml) For Iv Start) 0.1 ml INTRADERMA PER PROTOCOL PRN PRN Reason: IV Start Last Admin: 10/07/18 10:17 Dose: 0.1 ml Documented by: Miscellaneous Information (Potassium Per Protocol) 1 each MISCELLANE DAILY PRN; Protocol PRN Reason: Per Protocol Miscellaneous Information (Pharmacy To Dose Iv Vancomycin) 1 each MISCELLANE DIRECTED PRN PRN Reason: Per Protocol Naloxone HCl (Narcan) 0.2 mg IV Q2M PRN PRN Reason: Opioid Reversal Pantoprazole Sodium (Protonix) 40 mg IVP DAILY [facility] Last Admin: 10/21/18 08:45 Dose: 40 mg Documented by: Home Medications Medication Instructions Recorded Confirmed Type Aspirin [Adult Low Dose Aspirin EC] 81 mg PO DAILY 09/03/18 10/07/18 History Fenofibrate [Lofibra] 160 mg PO DAILY 09/03/18 10/07/18 History Ibuprofen [Motrin] 800 mg PO QID 09/03/18 10/07/18 History Lisinopril [Zestril] 20 mg PO DAILY 09/03/18 10/07/18 History amLODIPine [Norvasc] 10 mg PO DAILY 09/03/18 10/07/18 History Ergocalciferol (Vitamin D2) 50,000 unit PO TH 09/25/18 10/07/18 History [Vitamin D2] Omeprazole [PriLOSEC] 20 mg PO AC-BID 09/25/18 10/07/18 History Allergies Allergy/AdvReac Type Severity Reaction Status Date / Time Penicillins Allergy Swelling Verified 10/07/18 20:03 Physical Exam Vitals: Vital Signs Temp Pulse Pulse Resp BP BP Pulse Ox 10/21/18 22:00 93 23 123/71 98 10/21/18 21:30 95 16 121/70 98 10/21/18 21:00 92 17 127/72 99 10/21/18 20:30 91 17 124/69 100 10/21/18 20:00 98.8 F 91 20 120/70 98 10/21/18 19:44 100 10/21/18 19:32 93 10/21/18 19:30 94 17 117/65 97 10/21/18 19:00 90 25 H 115/64 96 10/21/18 18:30 92 23 96/56 92 L 10/21/18 18:00 84 25 H 121/65 92 L 10/21/18 17:30 93 25 H 110/66 92 L 10/21/18 17:00 89 24 115/64 96 10/21/18 16:30 90 26 H 94/61 97 10/21/18 16:20 90 10/21/18 16:01 97.6 F 86 27 H 114/66 10/21/18 16:00 98.8 F 88 23 104/69 99 10/21/18 15:58 89 10/21/18 15:30 90 22 98/49 99 10/21/18 15:00 85 26 H 114/54 96 10/21/18 14:30 81 24 115/68 99 10/21/18 14:00 87 26 H 102/66 99 10/21/18 13:30 90 24 114/64 99 10/21/18 13:00 88 27 H 123/61 99 10/21/18 12:30 86 27 H 92/52 99 10/21/18 12:00 98.9 F 90 26 H 104/60 93 L 10/21/18 11:38 88 10/21/18 11:30 86 23 100/53 99 10/21/18 11:25 87 10/21/18 11:00 83 25 H 112/61 99 10/21/18 10:30 89 23 109/56 99 10/21/18 10:00 88 22 108/59 99 10/21/18 09:30 88 24 102/54 99 10/21/18 09:00 91 25 H 107/50 99 10/21/18 08:30 87 23 129/55 99 10/21/18 08:00 99.1 F 86 24 109/50 99 10/21/18 07:48 90 10/21/18 07:32 89 10/21/18 07:30 100.3 F H 86 24 118/46 99 10/21/18 07:00 87 23 99 10/21/18 06:30 89 19 116/46 99 10/21/18 06:00 89 18 133/67 99 10/21/18 05:30 91 15 135/66 99 10/21/18 05:00 92 21 135/59 99 10/21/18 04:30 92 15 138/63 99 10/21/18 04:00 98.7 F 93 19 126/56 99 10/21/18 03:30 91 16 135/60 99 10/21/18 03:00 94 19 137/52 97 10/21/18 02:30 92 19 152/62 98 10/21/18 02:00 93 14 143/67 98 10/21/18 01:30 93 19 144/64 99 10/21/18 01:00 95 15 147/68 99 10/21/18 00:30 93 20 136/68 98 10/21/18 00:00 98.7 F 93 15 146/70 98 10/20/18 23:30 93 19 134/64 98 10/20/18 23:00 92 21 142/62 98 Intake and Output 10/21/18 10/21/18 10/21/18 06:59 14:59 22:59 Intake Total 1875.333 836.429 972 Output Total 70 25 2209 Balance 1805.333 811.429 -1237 Intake: IV 567 541 972 Meropenem 500 mg In 100 Sodium Chloride 0.9% 50 ml @ 100 mls/hr IVPB Q12HR [facility] Rx#:[id number] Normal Saline carrier 90 70 50 Pressure bag 27 21 21 TPN 450 350 400 Vancomycin 2,000 mg In 501 Sodium Chloride 0.9% 500 ml 500 ml @ 167 mls/hr IVPB ONCE ONE Rx#: [id number] Intake, IV Titration 1308.333 295.429 Amount Heparin Sod,Pork in 0.45% 250 221.446 NaCl 25,000 unit In 0.45 % NaCl 1 250ml.bag @ 18 UNITS/KG/HR 20.682 mls/hr IV .Q12H6M [facility] Rx#: [id number] Mvi, Adult No.4 with Vit 958.333 K 10 ml Trace (Conc-1Ml/ Dose) 1 ml Sodium Acetate 35 meq Calcium Gluconate 2 gm Potassium Chloride 20 meq In Amino Acid 5%- D15w 1,000 ml @ 50 mls/hr IV .[id number] [facility] Rx#: [id number] Propofol 1,000 mg In 100 73.983 Empty Bag 1 bag @ Titrate IV .Q0M [facility] Rx#: [id number] Oral 0 0 Output: Urine 70 25 75 Hemodialysis 2134 Other: Voiding Method Indwelling Catheter Indwelling Catheter Indwelling Catheter Weight 121.9 kg 121.9 kg ABP, PAP, CO, CI - Last 8 Hours Arterial Blood Pressure 141/56 Arterial Blood Pressure 151/62 Arterial Blood Pressure 147/60 Arterial Blood Pressure 160/66 Arterial Blood Pressure 85/68 Arterial Blood Pressure 149/63 Arterial Blood Pressure 72/61 Arterial Blood Pressure 70/60 Arterial Blood Pressure 110/49 Arterial Blood Pressure 133/63 Arterial Blood Pressure 132/64 Arterial Blood Pressure 131/64 Arterial Blood Pressure 104/58 Arterial Blood Pressure 112/54 Arterial Blood Pressure 101/41 53-year-old male who appears to be much older than his stated age remains intubated sedated and mechanically ventilated and hemodynamically stable HEENT: Anicteric, no lesions can been seen in the oral cavity or the endotracheal tube and NG tube. IJ catheter for hemodialysis in the right neck is noted. Neck: The neck is not stiff, no masses palpable Lungs: Symmetrical air entry is noted, basilar crackles heard Heart: Irregular without audible S1 and S2 soft S4 no stiff murmur click or rub is noted Abdomen: Obese, Positive bowel sounds soft and nontender without palpable masses or organomegaly. There was no guarding or rebound. Extremities: The upper extremity no evidence of some generalized edema and evidence of scattered areas of ecchymosis The lower extremities have the extensive bilateral lower extremity edema. Presents of the deep tissue injury of both heels. There is evidence of the eschars present on both buttocks and please refer the nursing photography for the size of these multiple abnormalities. The left leg the patient is evidence of the 2 fasciotomy wounds from 10/13/2018. Also please see the nursing photography for the exact size of these ulcerations. If this point in time they are with evidence of some dryness of the base there is no yung ischemia being seen to the base of the fasciotomy with there is still some exposed muscle. There is some mildly degenerating fat and with manipulation some serous tissue edema fluid does come through the open areas. The left foot is well perfused. Neuro: Patient is intubated sedated and mechanically ventilated Results CBC & Chem 7: 10/21/18 04:35 10/21/18 04:35 Labs: Abnormal Lab Results - Last 24 Hours (Table) 10/21/18 10/21/18 10/21/18 Range/Units 04:35 04:35 04:35 WBC 15.8 H (3.8-10.6) k/uL RBC 2.68 L (4.30-5.90) m/uL Hgb 7.7 L (13.0-17.5) gm/dL Hct 23.3 L (39.0-53.0) % RDW 17.3 H (11.5-15.5) % Neutrophils # (Manual) 12.10 H (1.3-7.7) k/uL Lymphocytes # (Manual) 0.47 L (1.0-4.8) k/uL Monocytes # (Manual) 1.58 H (0-1.0) k/uL Metamyelocytes # (Man) 0.95 H (0) k/uL Myelocytes # (Manual) 0.63 H (0) k/uL APTT 53.0 H (22.0-30.0) sec ABG pH (7.35-7.45) ABG pO2 (83-108) mmHg ABG HCO3 (21-25) mmol/L ABG Total CO2 (19-24) mmol/L ABG O2 Saturation (94-97) % Sodium 131 L (137-145) mmol/L Chloride 94 L (98-107) mmol/L BUN 66 H (9-20) mg/dL Creatinine 5.03 H (0.66-1.25) mg/dL Calcium 8.0 L (8.4-10.2) mg/dL Iron (65-175) ug/dL TIBC (228-460) ug/dL Iron Saturation (15.00-50.00) Ferritin (22.0-322.0) ng/mL 10/21/18 10/21/18 Range/Units 04:35 04:58 WBC (3.8-10.6) k/uL RBC (4.30-5.90) m/uL Hgb (13.0-17.5) gm/dL Hct (39.0-53.0) % RDW (11.5-15.5) % Neutrophils # (Manual) (1.3-7.7) k/uL Lymphocytes # (Manual) (1.0-4.8) k/uL Monocytes # (Manual) (0-1.0) k/uL Metamyelocytes # (Man) (0) k/uL Myelocytes # (Manual) (0) k/uL APTT (22.0-30.0) sec ABG pH 7.46 H (7.35-7.45) ABG pO2 122 H (83-108) mmHg ABG HCO3 26 H (21-25) mmol/L ABG Total CO2 27 H (19-24) mmol/L ABG O2 Saturation 98.7 H (94-97) % Sodium (137-145) mmol/L Chloride (98-107) mmol/L BUN (9-20) mg/dL Creatinine (0.66-1.25) mg/dL Calcium (8.4-10.2) mg/dL Iron 23 L (65-175) ug/dL TIBC 223 L (228-460) ug/dL Iron Saturation 10.31 L (15.00-50.00) Ferritin 2665.2 H (22.0-322.0) ng/mL Microbiology - Last 24 Hours (Table) 10/21/18 15:31 Wound Culture - Preliminary Leg - Left 10/21/18 15:31 Anaerobic Culture - Preliminary Leg - Left 10/16/18 10:40 Blood Culture - Preliminary Blood No Growth after 120 hours 10/16/18 10:10 Blood Culture - Preliminary Blood No Growth after 120 hours Laboratory Results WBC 15.8 k/uL (3.8-10.6) H 10/21/18 04:35 RBC 2.68 m/uL (4.30-5.90) L 10/21/18 04:35 Hgb 7.7 gm/dL (13.0-17.5) L 10/21/18 04:35 Hct 23.3 % (39.0-53.0) L 10/21/18 04:35 MCV 86.9 fL (80.0-100.0) 10/21/18 04:35 MCH 28.7 pg (25.0-35.0) 10/21/18 04:35 MCHC 33.0 g/dL (31.0-37.0) 10/21/18 04:35 RDW 17.3 % (11.5-15.5) H 10/21/18 04:35 Plt Count 212 k/uL (150-450) 10/21/18 04:35 Neutrophils % 76 % 10/12/18 20:00 Neutrophils % (Manual) 49 % 10/21/18 04:35 Band Neutrophils % 28 % 10/21/18 04:35 Lymphocytes % 12 % 10/12/18 20:00 Lymphocytes % (Manual) 3 % 10/21/18 04:35 Monocytes % 7 % 10/12/18 20:00 Monocytes % (Manual) 10 % 10/21/18 04:35 Eosinophils % 3 % 10/12/18 20:00 Eosinophils % (Manual) 1 % 10/21/18 04:35 Basophils % 0 % 10/12/18 20:00 Metamyelocytes % 6 % 10/21/18 04:35 Myelocytes % 4 % 10/21/18 04:35 Blast Cells % Not Reportable 10/18/18 05:46 Neutrophils # 7.3 k/uL (1.3-7.7) 10/12/18 20:00 Neutrophils # (Manual) 12.10 k/uL (1.3-7.7) H 10/21/18 04:35 Lymphocytes # 1.2 k/uL (1.0-4.8) 10/12/18 20:00 Lymphocytes # (Manual) 0.47 k/uL (1.0-4.8) L 10/21/18 04:35 Monocytes # 0.7 k/uL (0-1.0) 10/12/18 20:00 Monocytes # (Manual) 1.58 k/uL (0-1.0) H 10/21/18 04:35 Eosinophils # 0.3 k/uL (0-0.7) 10/12/18 20:00 Eosinophils # (Manual) 0.16 k/uL (0-0.7) 10/21/18 04:35 Basophils # 0.0 k/uL (0-0.2) 10/12/18 20:00 Metamyelocytes # (Man) 0.95 k/uL (0) H 10/21/18 04:35 Myelocytes # (Manual) 0.63 k/uL (0) H 10/21/18 04:35 Blast Cells # (Man) 0.14 k/uL (0) H 10/18/18 05:46 Nucleated RBCs 0 /100 WBC (0-0) 10/21/18 04:35 Manual Slide Review Performed 10/21/18 04:35 Toxic Granulation Present 10/21/18 04:35 Large Platelets Present 10/20/18 05:00 Polychromasia Present 10/21/18 04:35 Hypochromasia Slight 10/17/18 04:48 Poikilocytosis (manual Present 10/20/18 05:00 Basophilic Stippling Present 10/18/18 05:46 Anisocytosis Slight 10/21/18 04:35 Anisocytosis (manual) Present 10/21/18 04:35 Target Cells Present 10/20/18 05:00 PT 9.6 sec (9.0-12.0) 10/13/18 03:15 INR 0.9 (<1.2) 10/13/18 03:15 APTT 53.0 sec (22.0-30.0) H 10/21/18 04:35 Sample Site chazy 10/21/18 04:58 ABG pH 7.46 (7.35-7.45) H 10/21/18 04:58 ABG pCO2 37 mmHg (35-45) 10/21/18 04:58 ABG pO2 122 mmHg (83-108) H 10/21/18 04:58 ABG HCO3 26 mmol/L (21-25) H 10/21/18 04:58 ABG Total CO2 27 mmol/L (19-24) H 10/21/18 04:58 ABG O2 Saturation 98.7 % (94-97) H 10/21/18 04:58 ABG Base Excess 2.5 mmol/L 10/21/18 04:58 Donnell Test Yes 10/21/18 04:58 FiO2 40 % 10/21/18 04:58 Sodium 131 mmol/L (137-145) L 10/21/18 04:35 Potassium 3.9 mmol/L (3.5-5.1) 10/21/18 04:35 Chloride 94 mmol/L (98-107) L 10/21/18 04:35 Carbon Dioxide 26 mmol/L (22-30) 10/21/18 04:35 Anion Gap 11 mmol/L 10/21/18 04:35 BUN 66 mg/dL (9-20) H 10/21/18 04:35 Creatinine 5.03 mg/dL (0.66-1.25) H 10/21/18 04:35 Est GFR (CKD-EPI)AfAm 14 (>60 ml/min/1.73 sqM) 10/21/18 04:35 Est GFR (CKD-EPI)NonAf 12 (>60 ml/min/1.73 sqM) 10/21/18 04:35 Glucose 89 mg/dL (74-99) 10/21/18 04:35 POC Glucose (mg/dL) 103 mg/dL (75-99) H 10/15/18 18:14 POC Glu Centrifuge Operator ID Jada Ferrara 10/15/18 18:14 Calcium 8.0 mg/dL (8.4-10.2) L 10/21/18 04:35 Ionized Calcium Deandre 4.5 mg/dL (4.5-5.3) 10/19/18 05:20 Phosphorus 4.1 mg/dL (2.5-4.5) 10/21/18 04:35 Magnesium 2.1 mg/dL (1.6-2.3) 10/21/18 04:35 Iron 23 ug/dL (65-175) L 10/21/18 04:35 TIBC 223 ug/dL (228-460) L 10/21/18 04:35 Iron Saturation 10.31 (15.00-50.00) L 10/21/18 04:35 Ferritin 2665.2 ng/mL (22.0-322.0) H 10/21/18 04:35 Total Bilirubin 1.8 mg/dL (0.2-1.3) H 10/18/18 05:46 AST 700 U/L (17-59) H 10/18/18 05:46 ALT 175 U/L (21-72) H 10/18/18 05:46 Alkaline Phosphatase 94 U/L (38-126) 10/18/18 05:46 Total Protein 4.6 g/dL (6.3-8.2) L 10/18/18 05:46 Albumin 2.2 g/dL (3.5-5.0) L 10/19/18 05:20 Procalcitonin 17.05 ng/mL (0.02-0.09) H 10/18/18 05:46 Urine Color Yellow 10/12/18 02:10 Urine Appearance Clear (Clear) 10/12/18 02:10 Urine pH 5.5 (5.0-8.0) 10/12/18 02:10 Ur Specific Mather 1.020 (1.001-1.035) 10/12/18 02:10 Urine Protein Trace (Negative) H 10/12/18 02:10 Urine Glucose (UA) Negative (Negative) 10/12/18 02:10 Urine Ketones Negative (Negative) 10/12/18 02:10 Urine Blood Moderate (Negative) H 10/12/18 02:10 Urine Nitrite Negative (Negative) 10/12/18 02:10 Urine Bilirubin Negative (Negative) 10/12/18 02:10 Urine Urobilinogen <2.0 mg/dL (<2.0) 10/12/18 02:10 Ur Leukocyte Esterase Negative (Negative) 10/12/18 02:10 Urine WBC 4 /hpf (0-5) 10/12/18 02:10 Ur Squamous Epith Cells <1 /hpf (0-4) 10/12/18 02:10 Hyaline Casts 75 /lpf (0-2) H 10/12/18 02:10 Granular Casts 1 /lpf (0) 10/12/18 02:10 Hep Bs Antigen Non-Reactive (Non-Reactive) 10/15/18 11:45 Hep Bs Antibody Non-Reactive (Non-Reactive) 10/15/18 11:45 Hep Bs Antibody, Quant 3.5 mIU/mL 10/15/18 11:45 Hep B Core Total Ab Non-Reactive (Non-Reactive) 10/15/18 11:45 Miscellaneous Test aPTT To RDH 10/18/18 05:46 Misc Test Result See Comment 10/18/18 05:46 Blood Type A Positive 10/11/18 11:56 Blood Type Confirm A Positive 10/07/18 10:15 Blood Type Recheck No 10/11/18 11:56 Antibody Screen NEGATIVE 10/11/18 11:56 Crossmatch See Detail 10/11/18 11:56 Spec Expiration Date 10/14/2018 - 73110/11/18 11:56 Microbiology 10/21/18 15:31 Leg - Left Wound Culture - Preliminary 10/21/18 15:31 Leg - Left Anaerobic Culture - Preliminary 10/16/18 10:40 Blood Blood Culture - Preliminary No Growth after 120 hours 10/16/18 10:10 Blood Blood Culture - Preliminary No Growth after 120 hours 10/16/18 15:20 Sputum Gram Stain - Final 10/16/18 15:20 Sputum Sputum Culture - Final 10/12/18 09:30 Sputum Gram Stain - Final 10/12/18 09:30 Sputum Sputum Culture - Final Moraxella(branhamella) catarra Haemophilus influenzae Chest x-ray: report reviewed (Bibasilar atelectasis) Assessment and Plan (1) Atherosclerosis of [place] artery of both lower extremities with intermittent claudication Current Visit: Yes Status: Acute Code(s): I70.213 - ATHSCL [place] ARTERIES OF EXTRM W INTRMT [place], BI LEGS SNOMED Code(s): 697551909913355 (2) Respiratory failure Current Visit: Yes Status: Acute Code(s): J96.90 - RESPIRATORY FAILURE, UNSP, UNSP W HYPOXIA OR HYPERCAPNIA SNOMED Code(s): 165717757 (3) Pressure ulcer of buttock Narrative/Plan: 53-year-old male with a long-standing history of tobacco use with underlying lung disease as well as severe peripheral vascular disease with ongoing symptomatology worsening over the last greater than 1 year. At the time presentation occurs the patient is miserable with his claudication from his severe peripheral vascular disease. He was evaluated and because of the disease state was taken the operating room and a or aorto bifemoral graft was placed. The patient has had great difficulties that included occlusion of the graft in further surgeries that included the thrombectomy of the aorta graft the right femoral component in the left femoral component. By the time the left femoral component occluded there is evidence of severe swelling to the calf and fasciotomies were performed for limb salvage. The patient remains with respiratory failure intubated sedated and mechanically ventilated but not in vasopressor therapy. He developed acute renal failure as noted dialysis dependent. The patient has developed some fever and follow-up cultures have been requested. To date only positive cultures or Moraxella and Haemophilus and de-escalation to Rocephin will occur. However given the multiple ulcerations vancomycin is added with pharmacy dosing given his hemodialysis dependence at this time. He has severe leukocytosis it is multifactorial including the multiple underlying pressure ulceration. The patient does have cardiac dysrhythmia and is on amiodarone. The patient is in an ICU bed for appropriate offloading heels are being also purposely offloaded. Receiving nutrition via TPN. Current Visit: Yes Status: Acute Code(s): L89.309 - PRESSURE ULCER OF UNSPECIFIED BUTTOCK, UNSPECIFIED STAGE SNOMED Code(s): 073537363 (4) Pressure injury of deep tissue of left heel Current Visit: Yes Status: Acute Code(s): L89.629 - PRESSURE ULCER OF LEFT HEEL, UNSPECIFIED STAGE SNOMED Code(s): 637859630 (5) Pressure injury of deep tissue of right heel Current Visit: Yes Status: Acute Code(s): L89.619 - PRESSURE ULCER OF RIGHT HEEL, UNSPECIFIED STAGE SNOMED Code(s): 171099577
[2018-10-22] MEDS: PROPOFOL 1,000 MG in EMPTY BAG 1 BAG IV SCH ×6 (00:49→23:46)
[2018-10-22] MEDS: HEPARIN SOD,PORK IN 0.45% NACL 25,000 UNIT in 0.45% NACL 1 250ML.BAG IV SCH ×2 (02:19→22:21)
[2018-10-22] MEDS ORDERED: [UNRECOGNIZED DRUG - REMARK] IV SCH ×7 (03:30)
[2018-10-22 04:50] LABS: Anisocytosis Slight; HCT 23.2 % (39.0-53.0); HGB 7.4 gm/dL (13.0-17.5); Hypochromasia Slight; MCH 28.2 pg (25.0-35.0); MCHC 32.1 g/dL (31.0-37.0); MCV 87.8 fL (80.0-100.0); Mean Platelet Volume 8.7; Platelet Count 197 k/uL (150-450); RBC 2.64 m/uL (4.30-5.90); RDW 17.7 % (11.5-15.5); WBC 12.9 k/uL (3.8-10.6)
[2018-10-22 05:15] LABS: Phosphorus 4.2 mg/dL (2.5-4.5); Potassium 4.1 mmol/L (3.5-5.1)
[2018-10-22 06:01] LABS: Band Neutrophils % 23 %; Eosinophils # (M) 0.13 k/uL (0-0.7); Lymphocytes # (M) 1.03 k/uL (1.0-4.8); Metamyelocytes # (M) 0.52 k/uL (0); Metamyelocytes % 4 %; Monocytes # (M) 0.52 k/uL (0-1.0); Myelocytes # (M) 0.39 k/uL (0); Myelocytes % 3 %; Neutrophils % (M) 59 %; Nucleated Red Blood Cells 0 /100 WBC (0-0); Polychromasia Present; Total Cells Counted 200
[2018-10-22 06:02] LABS: Large Platelets Present
[2018-10-22 06:04] LABS: Poikilocytosis (M) Present
[2018-10-22] MEDS: IPRATROPIUM-ALBUTEROL 3 ML NEB INHALATION SCH ×4 (07:18→19:59)
[2018-10-22] MEDS: FENOFIBRATE 160 MG TAB PO SCH (08:25)
[2018-10-22] MEDS: PANTOPRAZOLE 40 MG/10 ML VIAL IVP SCH (08:25)
[2018-10-22] MEDS: CHLORHEXIDINE GLUCONATE 15 ML CUP MUCOUS MEM SCH ×2 (08:25→21:08)
[2018-10-22] MEDS: AMIODARONE 200 MG TAB PO SCH ×2 (08:25→21:08)
[2018-10-22] MEDS: COLLAGENASE 250 UNIT/GM OINTMENT 30 GM TUBE TOPICAL SCH (08:30)
[2018-10-22] MEDS: GABAPENTIN 300 MG CAP PO SCH ×3 (08:32→22:21)
--- NOTE | 2018-10-22 08:50 | XR ---
EXAMINATION TYPE: XR chest 1V portable DATE OF EXAM: 10/22/2018 COMPARISON: 10/21/2018 HISTORY: Shortness of breath TECHNIQUE: Single frontal view of the chest is obtained. FINDINGS: Diffuse interstitial pattern with bilateral consolidation and small effusion greater on th e left stable. Central line, ET tube and dialysis catheter stable. Suggestion of an NG tube. No pneum othorax. IMPRESSION: Findings stable. Correlate for CHF otherwise consider pneumonia.
[2018-10-22] MEDS: ASPIRIN 81 MG PO SCH (09:05)
--- NOTE | 2018-10-22 11:47 | P.PN ---
Progress Note - Text Progress Note Date: 10/22/18 Patient seen at the bedside. Seems more alert today. Case discussed with pulmonary and vascular. We'll place tracheostomy tube in conjunction with hemodialysis access catheter. We'll hold off on PEG tube at this time.
[2018-10-22] MEDS ORDERED: VANCOMYCIN 2,000 MG in SODIUM CHLORIDE 0.9% 500 ML 500 ML IVPB ONE (12:00)
[2018-10-22] MEDS ORDERED: ROCURONIUM BROMIDE 10 MG/ML 10 ML VIAL IV ONE (12:04)
[2018-10-22] MEDS ORDERED: SODIUM CHLORIDE 0.9% 500 ML 500 ML IV ONE (12:04)
[2018-10-22] MEDS ORDERED: BUPIVACAINE (PF) 0.5% 30 ML VIAL SQ ONE (12:24)
[2018-10-22] MEDS ORDERED: HEPARIN SODIUM,PORCINE 100 UNIT/ML 5 ML VIAL IV ONE ×2 (12:36)
--- NOTE | 2018-10-22 12:43 | P.PN ---
Subjective Progress Note Date: 10/22/18 Principal diagnosis: acute ventilator-dependent hypoxic respiratory failure secondary to aspiration pneumonia and ARDS. On 10/20/2018 of seeing this patient for a follow-up. The patient is sedated on 30 mics of propofol. He was able to come off sedation adequately yesterday as the patient became restless and they suggested a mechanical ventilator. This morning it is back on sedation. He was on a PEEP of 11 with an FiO2 of 40% and a rate of 400 and respiratory rate of 32. I realize that the patient ever pressure lower and he was sucking way higher tidal volumes as with provided to him through the mechanical ventilator. Based on that, switch this patient to a VC plus mode and increase the tidal volume to 500 and dropped a respiratory rate up to 24 and dropped PEEP down to 9 keeping the FiO2 at 40% and the chest x-ray shows improvement of breath and pulmonary infiltrates. The patient's airway pressure steadily on the decline. Lower lobe consolidation improving and the patient is currently on IV meropenem. He is on TPN for nutritional support. Abdomen is slightly distended and hypoactive bowel sounds. Orogastric tube is in place. Surgical abdominal wound site is dry clean and intact. The groin wounds are clean and intact. Pulses in the lower extremities are obtained and measured by Doppler. He has undergone 4 sessions of hemodialysis and the lacer ation was done yesterday without any complication with significant ultrafiltration. He is afebrile. He is hemodynamically stable on no pressors and both of vasopressin and levo fed has been discontinued. I am thinking and the patient will be a difficult wean and is reasonable to consider a PEG and trach special with above-mentioned medical problems and comorbidities encountered over the past 1 week. His white cell count is 17. Hemoglobin stable at 8.0. The patient remains on IV heparin. PH is 7.49 with a pCO2 of 38 and pO2 of 103. There is scrotal edema which is also improving. Reevaluated today on 10/21/2018, patient remains on mechanical ventilation, sedated, presently on assist control rate of 22, FiO2 of 45%, tidal volume of 500, and PEEP of 6. patient is actually on volume control plus mode of mechanical ventilation. Hence his tidal volume varies from breast of breath. I was able to drop the PEEP down to 6 today. Patient seems to be ventilating quite well. He is hemodynamically stable today, off all pressors, remains on antibiotics for left lower lobe consolidation and fever, he is on Merrem. Remains on TPN, and he may undergo tracheostomy and PEG tube placement today by Dr. rodriguez. However he is yet to have his dialysis this morning.WBC count is 15.8 hemoglobin is 7.7. ABG this morning showed a pO2 of 122 pCO2 of 37 pH of 7.46.worsening renal profile is noted today, BUN is 66 creatinine is 5.03, patient remains oliguric, roughly about 30 mL of urine per shift. Patient was reevaluated today on , remains on mechanical ventilation. Patient was reevaluated today on 10/22/2018, remains on mechanical ventilation, he is now on assist control rate of 22, tidal volume of 500/volume control plus, FiO2 45%, PEEP of 6. Remains on propofol at 20 mcg/kg/m, patient is arousable, seems to follow simple instructions, presently on dialysis. Patient is van eduled to undergo tracheostomy and possible PEG tube placement today. Chest x- ray showed diffuse interstitial pattern with bilateral small effusions greater on the left. The findings are suggestive of resolving ARDS, doubt cardiogenic pulmonary edema. Although the possibility of interstitial edema is not entirely ruled out considering the patient is oliguric, and he is requiring daily hemodialysis at this point. Labs today showed hemoglobin of 7.4 WBC count of 12.9. ABG showed a pO2 of 96 pCO2 of 36 pH of 7.48 Objective - Vital Signs Vital signs: Vital Signs Temp 99.3 F 10/22/18 11:30 Pulse 93 10/22/18 11:30 Resp 25 H 10/22/18 11:30 BP 100/59 10/22/18 11:30 Pulse Ox 100 10/22/18 11:30 Intake & Output 10/21/18 10/22/18 10/22/18 18:59 06:59 18:59 Intake Total 7018.424 3017 651.760 Output Total 2201 146 3030 Balance -811.692 6647 -2378.240 Weight 121.9 kg 120.5 kg Intake: IV 1104 976 342 Meropenem 500 mg In 100 Sodium Chloride 0.9% 50 ml @ 100 mls/hr IVPB Q12HR [facility] Rx#:[id number] Normal Saline carrier 90 120 30 Pressure bag 30 39 12 TPN 550 650 200 Vancomycin 2,000 mg In 334 167 Sodium Chloride 0.9% 500 ml 500 ml @ 167 mls/hr IVPB ONCE ONE Rx#: [id number] cefTRIAXone 2 gm In 100 Sodium Chloride 0.9% 50 ml @ 100 mls/hr IVPB Q24HR [facility] Rx#:[id number] Intake, IV Titration 295.429 350 309.760 Amount Heparin Sod,Pork in 0.45% 221.446 250 130.151 NaCl 25,000 unit In 0.45 % NaCl 1 250ml.bag @ 18 UNITS/KG/HR 20.682 mls/hr IV .Q12H6M [facility] Rx#: [id number] Propofol 1,000 mg In 73.983 100 179.609 Empty Bag 1 bag @ Titrate IV .Q0M [facility] Rx#: [id number] Oral 0 0 Output: Urine 67 146 30 Hemodialysis 2134 3000 Other: Voiding Method Indwelling Catheter Indwelling Catheter Indwelling Catheter ABP, PAP, CO, CI - Last Documented Arterial Blood Pressure 106/46 - Exam GENERAL EXAM: revealed a 53-year-old white male on mechanical ventilation, sedated, in no distress. On propofol. HEAD: Normocephalic/atraumatic. EENT: PERRLA, EOMI, endotracheal tube is intact, no neck masses, no JVD. Lines were noted. CHEST: No chest wall deformity. Symmetrical expansion. LUNGS:minimal fine crackles at the bases. No rhonchi and no wheezes. CVS: normal S1 and S2, no gallops. No murmur. ABDOMEN:soft nontender no megaly. Diminished bowel sounds. Midabdominal and Bilateral groin incisions, left groin incision with wound VAC in place. EXTREMITIES: The upper extremity no evidence of some generalized edema and evidence of scattered areas of ecchymosis The lower extremities have the extensive bilateral lower extremity edema. Pres ents of the deep tissue injury of both heels. There is evidence of the eschars present on both buttocks. The left leg the patient is evidence of the 2 fasciotomy wounds from 10/13/2018. evidence of some dryness of the base there is no yung ischemia being seen to the base of the fasciotomy with there is still some exposed muscle. There is some mildly degenerating fat and with manipulation some serous tissue edema fluid does come through the open areas. MUSCULOSKELETAL: cannot be assessed. Patient is sedated on mechanical ventilation SKIN: No rashes, , DPI in the left ankle area, and the patient is scrotal edema CENTRAL NERVOUS SYSTEM: Arousable on propofol, followed extremely simple ins tructions. PSYCHIATRIC: Unable to perform - Labs CBC & Chem 7: 10/22/18 04:25 10/22/18 04:25 Labs: Abnormal Lab Results - Last 24 Hours (Table) 10/21/18 10/22/18 10/22/18 Range/Units 04:35 04:25 04:25 WBC 12.9 H (3.8-10.6) k/uL RBC 2.64 L (4.30-5.90) m/uL Hgb 7.4 L (13.0-17.5) gm/dL Hct 23.2 L (39.0-53.0) % RDW 17.7 H (11.5-15.5) % Neutrophils # (Manual) 10.50 H (1.3-7.7) k/uL Metamyelocytes # (Man) 0.52 H (0) k/uL Myelocytes # (Manual) 0.39 H (0) k/uL APTT 53.4 H (22.0-30.0) sec Sodium (137-145) mmol/L Chloride (98-107) mmol/L BUN (9-20) mg/dL Creatinine (0.66-1.25) mg/dL Calcium (8.4-10.2) mg/dL Iron 23 L (65-175) ug/dL TIBC 223 L (228-460) ug/dL Iron Saturation 10.31 L (15.00-50.00) Ferritin 2665.2 H (22.0-322.0) ng/mL 10/22/18 Range/Units 04:25 WBC (3.8-10.6) k/uL RBC (4.30-5.90) m/uL Hgb (13.0-17.5) gm/dL Hct (39.0-53.0) % RDW (11.5-15.5) % Neutrophils # (Manual) (1.3-7.7) k/uL Metamyelocytes # (Man) (0) k/uL Myelocytes # (Manual) (0) k/uL APTT (22.0-30.0) sec Sodium 130 L (137-145) mmol/L Chloride 97 L (98-107) mmol/L BUN 63 H (9-20) mg/dL Creatinine 4.50 H (0.66-1.25) mg/dL Calcium 8.0 L (8.4-10.2) mg/dL Iron (65-175) ug/dL TIBC (228-460) ug/dL Iron Saturation (15.00-50.00) Ferritin (22.0-322.0) ng/mL Microbiology - Last 24 Hours (Table) 10/16/18 10:10 Blood Culture - Final Blood No Growth after 144 hours 10/21/18 15:31 Gram Stain - Preliminary Leg - Left Wound Culture - Preliminary 10/21/18 15:31 Gram Stain - Preliminary Leg - Left Wound Culture - Preliminary 10/21/18 15:31 Anaerobic Culture - Preliminary Leg - Left 10/21/18 15:31 Anaerobic Culture - Preliminary Leg - Left 10/16/18 10:40 Blood Culture - Preliminary Blood No Growth after 120 hours Assessment and Plan Assessment: impression: 1 acute ventilator-dependent hypoxic respiratory failure secondary to pneumonia and ARDS. most likely secondary to Moraxella catarrhalis and Haemophilus influenza as noted on the positive sputum cultures.patient is on Rocephin and vancomycin as per infectious disease on the case 2 peripheral vessel occlusive disease, status post aortobifemoral bypass surgery on 11/03/2018, with complicated course complicated by pneumonia and ARDS acute kidney injury 3 acute ischemic limbs postop requiring emergent thrombectomy on the right on 10/11/2018 and on the left on 10/23/2018. 4 acute septic shock is likely based on the fact that the patient required s ignificant MR pressors at one point. However presently resolved. 5 acute kidney injury/acute tubular necrosis secondary to sepsis. Patient remains on hemodialysis. 6 aortic dissection as noted on CT of the abdomen 7 chronic back pain 8 obesity/BMI of 39.3 9 deep tissue injury to his left heel 10 paroxysmal atrial fibrillation recommendation: Continue ventilatory support, nutritional support, antibiotics, hemodialysis, patient is being considered for tracheostomy and PEG tube placement today, continue antibiotics including Rocephin and Zithromax, continue heparin, continue TPN, patient is clearly not ready for any form of weaning at this point. Remains quite ill, prognosis is extremely poor and guarded, patient may have a permanent dialysis catheter placement today. We will continue to follow closely. Patient is critically ill, critical care time is 34 minutes Time with Patient: Greater than 30
[2018-10-22] MEDS ORDERED: BUPIVACAINE-EPI 0.5%-1:200,000 10 ML VIAL SQ ONE (12:59)
--- NOTE | 2018-10-22 13:03 | P.PN ---
Subjective Patient is seen in follow-up for acute kidney injury, currently hemodialysis dependent. Patient underwent aortobifemoral bypass graft on 10/07/2018 with right common femoral thromboendarterectomy. He's been off vasopressors since October 20. Remains oliguric. Scheduled for tracheostomy today. Tolerated hemodialysis well this morning. Underwent 3 L ultrafiltration. Vital signs are stable. General: The patient appeared well nourished and normally developed. Intubated. HEENT: Head exam is unremarkable. Neck is without jugular venous distension. LUNGS: Breath sounds decreased. HEART: Rate and Rhythm are regular. First and second heart sounds normal. No murmurs, rubs or gallops. ABDOMEN: Bowel sounds present. Soft. EXTREMITITES: 1+ edema. No obvious drainage noted. Objective - Vital Signs Vital signs: Vital Signs Temp 99.3 F 10/22/18 11:30 Pulse 93 10/22/18 11:30 Resp 25 H 10/22/18 11:30 BP 100/59 10/22/18 11:30 Pulse Ox 100 10/22/18 11:30 Intake & Output 10/21/18 10/22/18 10/22/18 18:59 06:59 18:59 Intake Total 1272.590 0855 651.760 Output Total 2201 146 3030 Balance -152.126 9389 -2378.240 Weight 121.9 kg 120.5 kg Intake: IV 1104 976 342 Meropenem 500 mg In 100 Sodium Chloride 0.9% 50 ml @ 100 mls/hr IVPB Q12HR [facility] Rx#:[id number] Normal Saline carrier 90 120 30 Pressure bag 30 39 12 TPN 550 650 200 Vancomycin 2,000 mg In 334 167 Sodium Chloride 0.9% 500 ml 500 ml @ 167 mls/hr IVPB ONCE ONE Rx#: [id number] cefTRIAXone 2 gm In 100 Sodium Chloride 0.9% 50 ml @ 100 mls/hr IVPB Q24HR [facility] Rx#:[id number] Intake, IV Titration 295.429 350 309.760 Amount Heparin Sod,Pork in 0.45% 221.446 250 130.151 NaCl 25,000 unit In 0.45 % NaCl 1 250ml.bag @ 18 UNITS/KG/HR 20.682 mls/hr IV .Q12H6M [facility] Rx#: [id number] Propofol 1,000 mg In 73.983 100 179.609 Empty Bag 1 bag @ Titrate IV .Q0M [facility] Rx#: [id number] Oral 0 0 Output: Urine 67 146 30 Hemodialysis 2134 3000 Other: Voiding Method Indwelling Catheter Indwelling Catheter Indwelling Catheter ABP, PAP, CO, CI - Last Documented Arterial Blood Pressure 106/46 - Labs CBC & Chem 7: 10/22/18 04:25 10/22/18 04:25 Labs: Abnormal Lab Results - Last 24 Hours (Table) 10/21/18 10/22/18 10/22/18 Range/Units 04:35 04:25 04:25 WBC 12.9 H (3.8-10.6) k/uL RBC 2.64 L (4.30-5.90) m/uL Hgb 7.4 L (13.0-17.5) gm/dL Hct 23.2 L (39.0-53.0) % RDW 17.7 H (11.5-15.5) % Neutrophils # (Manual) 10.50 H (1.3-7.7) k/uL Metamyelocytes # (Man) 0.52 H (0) k/uL Myelocytes # (Manual) 0.39 H (0) k/uL APTT 53.4 H (22.0-30.0) sec Sodium (137-145) mmol/L Chloride (98-107) mmol/L BUN (9-20) mg/dL Creatinine (0.66-1.25) mg/dL Calcium (8.4-10.2) mg/dL Iron 23 L (65-175) ug/dL TIBC 223 L (228-460) ug/dL Iron Saturation 10.31 L (15.00-50.00) Ferritin 2665.2 H (22.0-322.0) ng/mL 10/22/18 Range/Units 04:25 WBC (3.8-10.6) k/uL RBC (4.30-5.90) m/uL Hgb (13.0-17.5) gm/dL Hct (39.0-53.0) % RDW (11.5-15.5) % Neutrophils # (Manual) (1.3-7.7) k/uL Metamyelocytes # (Man) (0) k/uL Myelocytes # (Manual) (0) k/uL APTT (22.0-30.0) sec Sodium 130 L (137-145) mmol/L Chloride 97 L (98-107) mmol/L BUN 63 H (9-20) mg/dL Creatinine 4.50 H (0.66-1.25) mg/dL Calcium 8.0 L (8.4-10.2) mg/dL Iron (65-175) ug/dL TIBC (228-460) ug/dL Iron Saturation (15.00-50.00) Ferritin (22.0-322.0) ng/mL Microbiology - Last 24 Hours (Table) 10/16/18 10:40 Blood Culture - Final Blood No Growth after 144 hours 10/16/18 10:10 Blood Culture - Final Blood No Growth after 144 hours 10/21/18 15:31 Gram Stain - Preliminary Leg - Left Wound Culture - Preliminary 10/21/18 15:31 Gram Stain - Preliminary Leg - Left Wound Culture - Preliminary 10/21/18 15:31 Anaerobic Culture - Preliminary Leg - Left 10/21/18 15:31 Anaerobic Culture - Preliminary Leg - Left Assessment and Plan Plan: Assessment: 1. Acute kidney injury secondary to ATN secondary to hypotension and contrast- induced nephropathy. Currently hemodialysis dependent. No evidence of renal recovery at this time. Patient's creatinine in August 2018 was in the range of 1.3-1.7. 2. 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 Vascular surgery following. 3. Volume overload. 4. A. fib with RVR. Now rate controlled. 5. Chronic kidney disease stage III secondary to nephrosclerosis. Baseline creatinine in the range of 1.3-1.7. 6. Anemia of chronic illness. High ferritin level noted. 7. Hypervolemic hyponatremia. Plan: Hemodialysis again tomorrow. Will try for 2-3 L ultrafiltration as able to tolerate. Check vancomycin level. Add Aranesp. Add IV Lasix.
--- NOTE | 2018-10-22 13:06 | FL ---
EXAMINATION TYPE: FL guided central line placemt HISTORY: Fluoroscopy time Impression: 1. Fluoroscopy support provided to the referring physician of 10 seconds.
--- NOTE | 2018-10-22 13:39 | P.OP ---
Date of Procedure: 10/22/18 Procedure(s) Performed: PREOPERATIVE DIAGNOSIS: Respiratory failure POSTOPERATIVE DIAGNOSIS: Same PROCEDURE: Tracheostomy SURGEON: Sadi EBL: Minimal ANESTHESIA: General COMPLICATIONS: None OPERATIVE PROCEDURE: Patient was placed in the operative table in the supine position. A shoulder roll was utilized. The neck was prepped and draped in usual sterile fashion. The skin was infiltrated with local anesthesia. A small cervical incision was created using the scalpel. Dissection through the subcutaneous fat and platysma layer took place using electrocautery. The underlying strap muscles were divided in the midline. The thyroid isthmus was divided using electrocautery as well. No bleeding was seen. The trachea was easily identified at this time. The endotracheal tube was advanced and the balloon was reinflated. The patient was preoxygenated with 100% FiO2. The FiO2 was then brought down to room air. Once the end title oxygen level was less than 35 a vertical tracheostomy was created using the electrocautery. This went through the second and third tracheal ring. The patient was again preoxygenated with 100% FiO2. The clock assembler was utilized. Carefully the endotracheal tube was withdrawn just proximal to our tracheostomy. The 8-[place] Shiley fenestrated tracheostomy catheter was advanced under direct visualization into the trachea. The obturator was inserted. This was then connected to the ventilator. Positive end tidal CO2 was confirmed. The tracheal ties were utilized. The trach was sutured to the skin superiorly using 2 separate 0 silk sutures. The skin was closed using 3-0 Vicryl sutures. A dressing was applied. DISPOSITION: Stable to recovery room
[2018-10-22] MEDS: FUROSEMIDE 10 MG/ML 10 ML VIAL IV SCH ×2 (14:38→21:08)
[2018-10-22] MEDS: BISACODYL 10 MG SUPP RECTAL SCH (14:38)
[2018-10-22] MEDS: DARBEPOETIN ALFA 40 MCG/0.4 ML SYRINGE SQ SCH (14:38)
[2018-10-22] MEDS: NOREPINEPHRINE 32 MG in SODIUM CHLORIDE 0.9% 218 ML IV SCH (14:41)
--- NOTE | 2018-10-22 16:24 | P.CONS ---
History of Present Illness - Reason for Consult Consult date: 10/22/18 Coagulopathy Requesting physician: Tulio Multani - Chief Complaint Concerns for clotting - History of Present Illness Mr. Agarwal is sedated. All information was taken from the medical record. We've been asked to see the patient for unusual/excessive clotting. Patient has history of COPD and severe peripheral vascular disease. She was experiencing progressive claudication in the lower extremities. Patient was to the point where his activity was decreased because of the weakness and pain in the legs. 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 The graft subsequently occluded, requiring thrombectomy of the aorta, and the right and left femorals, the left calf required a fasciotomy. He has deep tissue injury, progresive renal failure requiring dialysis, he had trach placed today. He is being seen by ID for + respiratory culture. Review of Systems ROS unobtainable: due to endotracheal tube Past Medical History Past Medical History: Hypertension, Osteoarthritis (OA), Thyroid Disorder, Vascular Disorder Additional Past Medical History / Comment(s): "no blood flow to legs", arthritis in lower back, edema of lower legs, occ swelling in fingers History of Any Multi-Drug Resistant Organisms: None Reported Past Surgical History: No Surgical Hx Reported Past Anesthesia/Blood Transfusion Reactions: No Reported Reaction Past Psychological History: Unable to Obtain Smoking Status: Current some day smoker Past Alcohol Use History: Unable to Obtain Past Drug Use History: Unable to Obtain - Past Family History Sister(s) Family Medical History: Cancer Medications and Allergies Home Medications Medication Instructions Recorded Confirmed Type Aspirin [Adult Low Dose Aspirin EC] 81 mg PO DAILY 09/03/18 10/07/18 History Fenofibrate [Lofibra] 160 mg PO DAILY 09/03/18 10/07/18 History Ibuprofen [Motrin] 800 mg PO QID 09/03/18 10/07/18 History Lisinopril [Zestril] 20 mg PO DAILY 09/03/18 10/07/18 History amLODIPine [Norvasc] 10 mg PO DAILY 09/03/18 10/07/18 History Ergocalciferol (Vitamin D2) 50,000 unit PO TH 09/25/18 10/07/18 History [Vitamin D2] Omeprazole [PriLOSEC] 20 mg PO AC-BID 09/25/18 10/07/18 History Allergies Allergy/AdvReac Type Severity Reaction Status Date / Time Penicillins Allergy Swelling Verified 10/07/18 20:03 Physical Exam Vitals: Vital Signs Temp Pulse Pulse Resp BP BP Pulse Ox 10/22/18 15:46 85 10/22/18 15:00 89 25 H 125/46 97 10/22/18 14:30 90 27 H 110/54 95 10/22/18 14:00 95 26 H 90/49 97 10/22/18 11:30 99.3 F 93 25 H 100/59 100 10/22/18 11:00 93 24 105/61 98 10/22/18 10:35 98.9 F 93 25 H 118/49 10/22/18 10:30 93 25 H 95/76 99 10/22/18 10:00 98 35 H 125/76 97 10/22/18 09:30 93 27 H 119/74 99 10/22/18 09:00 93 26 H 105/81 99 10/22/18 08:30 96 26 H 92/57 98 10/22/18 08:00 98.9 F 99 29 H 139/77 98 10/22/18 07:45 96 10/22/18 07:30 93 27 H 131/68 100 10/22/18 07:24 94 10/22/18 07:00 96 27 H 137/73 99 10/22/18 06:30 98 17 140/73 99 10/22/18 06:00 99 21 139/74 99 10/22/18 05:30 94 21 138/68 99 10/22/18 05:00 98.9 F 94 19 121/60 99 10/22/18 04:30 97 20 111/60 99 10/22/18 04:00 100.7 F H 96 25 H 103/51 99 10/22/18 03:30 95 25 H 106/55 98 10/22/18 03:00 94 16 121/65 98 10/22/18 02:30 92 20 112/57 97 10/22/18 02:00 92 22 114/59 98 10/22/18 01:30 93 22 130/67 98 10/22/18 01:00 95 19 124/68 98 10/22/18 00:30 95 14 133/71 96 10/22/18 00:01 92 17 133/71 96 06/18/19 00:00 98.9 F 91 10 L 136/69 97 10/21/18 23:30 93 12 111/74 99 10/21/18 23:00 95 23 111/74 99 10/21/18 22:30 96 11 L 117/61 98 10/21/18 22:00 93 23 123/71 98 10/21/18 21:30 95 16 121/70 98 10/21/18 21:00 92 17 127/72 99 10/21/18 20:30 91 17 124/69 100 10/21/18 20:00 98.8 F 91 20 120/70 98 10/21/18 19:44 100 10/21/18 19:32 93 10/21/18 19:30 94 17 117/65 97 10/21/18 19:00 90 25 H 115/64 96 10/21/18 18:30 92 23 96/56 92 L 10/21/18 18:00 84 25 H 121/65 92 L 10/21/18 17:30 93 25 H 110/66 92 L 10/21/18 17:00 89 24 115/64 96 10/21/18 16:30 90 26 H 94/61 97 10/21/18 16:20 90 Intake and Output 10/22/18 10/22/18 10/22/18 06:59 14:59 22:59 Intake Total 817 1766.384 99.376 Output Total 113 3050 0 Balance 704 -1283.616 99.376 Intake: IV 567 1393 63 Normal Saline carrier 90 30 10 Pressure bag 27 12 3 TPN 450 350 50 Vancomycin 2,000 mg In 501 Sodium Chloride 0.9% 500 ml 500 ml @ 167 mls/hr IVPB ONCE ONE Rx#: [id number] cefTRIAXone 2 gm In 100 Sodium Chloride 0.9% 50 ml @ 100 mls/hr IVPB Q24HR [facility] Rx#:[id number] Intake, IV Titration 250 373.384 36.376 Amount Heparin Sod,Pork in 0.45% 250 130.151 NaCl 25,000 unit In 0.45 % NaCl 1 250ml.bag @ 18 UNITS/KG/HR 20.682 mls/hr IV .Q12H6M [facility] Rx#: [id number] Propofol 1,000 mg In 243.233 36.376 Empty Bag 1 bag @ Titrate IV .Q0M [facility] Rx#: [id number] Oral 0 0 Output: Urine 113 45 0 Hemodialysis 3000 Estimated Blood Loss 5 Other: Voiding Method Indwelling Catheter Indwelling Catheter Weight 120.5 kg ABP, PAP, CO, CI - Last 8 Hours Arterial Blood Pressure 129/48 Arterial Blood Pressure 104/50 Arterial Blood Pressure 86/38 Arterial Blood Pressure 106/46 Arterial Blood Pressure 116/47 Arterial Blood Pressure 115/49 Arterial Blood Pressure 129/58 Arterial Blood Pressure 146/59 Arterial Blood Pressure 138/58 Arterial Blood Pressure 119/56 - Constitutional General appearance: no acute distress, obese - EENT Eyes: anicteric sclerae - Neck Neck: no lymphadenopathy - Respiratory Respiratory: bilateral: CTA - Cardiovascular Heart sounds: normal: S1, S2 leg Peripheral Edema: bilateral: 3+ - Gastrointestinal General gastrointestinal: distended, normal bowel sounds, soft - Integumentary Integumentary: pale - Musculoskeletal Musculoskeletal: no gait normal, no generalized weakness, no strength equal bilaterally, no right sided weakness, no left sided weakness - Psychiatric Psychiatric: no A&O x's 3, no appropriate affect, no intact judgment & insight Results CBC & Chem 7: 10/22/18 04:25 10/22/18 04:25 Labs: Abnormal Lab Results - Last 24 Hours (Table) 10/21/18 10/22/18 10/22/18 Range/Units 04:35 04:25 04:25 WBC 12.9 H (3.8-10.6) k/uL RBC 2.64 L (4.30-5.90) m/uL Hgb 7.4 L (13.0-17.5) gm/dL Hct 23.2 L (39.0-53.0) % RDW 17.7 H (11.5-15.5) % Neutrophils # (Manual) 10.50 H (1.3-7.7) k/uL Metamyelocytes # (Man) 0.52 H (0) k/uL Myelocytes # (Manual) 0.39 H (0) k/uL APTT 53.4 H (22.0-30.0) sec Sodium (137-145) mmol/L Chloride (98-107) mmol/L BUN (9-20) mg/dL Creatinine (0.66-1.25) mg/dL Calcium (8.4-10.2) mg/dL Iron 23 L (65-175) ug/dL TIBC 223 L (228-460) ug/dL Iron Saturation 10.31 L (15.00-50.00) Ferritin 2665.2 H (22.0-322.0) ng/mL 10/22/18 Range/Units 04:25 WBC (3.8-10.6) k/uL RBC (4.30-5.90) m/uL Hgb (13.0-17.5) gm/dL Hct (39.0-53.0) % RDW (11.5-15.5) % Neutrophils # (Manual) (1.3-7.7) k/uL Metamyelocytes # (Man) (0) k/uL Myelocytes # (Manual) (0) k/uL APTT (22.0-30.0) sec Sodium 130 L (137-145) mmol/L Chloride 97 L (98-107) mmol/L BUN 63 H (9-20) mg/dL Creatinine 4.50 H (0.66-1.25) mg/dL Calcium 8.0 L (8.4-10.2) mg/dL Iron (65-175) ug/dL TIBC (228-460) ug/dL Iron Saturation (15.00-50.00) Ferritin (22.0-322.0) ng/mL Microbiology - Last 24 Hours (Table) 10/16/18 10:40 Blood Culture - Final Blood No Growth after 144 hours 10/16/18 10:10 Blood Culture - Final Blood No Growth after 144 hours 10/21/18 15:31 Gram Stain - Preliminary Leg - Left Wound Culture - Preliminary 10/21/18 15:31 Gram Stain - Preliminary Leg - Left Wound Culture - Preliminary 10/21/18 15:31 Anaerobic Culture - Preliminary Leg - Left 10/21/18 15:31 Anaerobic Culture - Preliminary Leg - Left Assessment and Plan (1) Blood clotting tendency Narrative/Plan: He has no history of surgeries to reflect upon to see if this is a past problem. I was unable to find any evidence of a family history of blood clotting, there was no family at the bedside. Case was discussed in detail with Dr. Mendieta. Hypercoagulable workup has been ordered. Results of the same will not alter treatment at this time. It is recommended patient be maintained on heparin drip to decrease risk of venous clotting as well as aspirin for decreased risk of arterial clotting. Unfortunately, some of the patient's current treatment is going to alter the results of the hypercoagulable workup. Protein C & S can be decreased in acute clotting situations, administration of heparin can alter antithrombin III and f actor V results. Antiphospholipid antibody results would be the only one, that if multiple antibodies present, would require plasmapheresis. Conventional cardiac risk factors, excessive plaque and intervention that causes disruption of plaques can also be a potential cause for increased platelet activation in the arterial system. Pending work up, continue current antiplatelet and anticoagulation. Fibrinogen ordered. Discussed with the laboratory the "interfering substance" that is causing d ifficulty in monitoring aPTT levels. This type of situation occurs more often with administration of lipids (i.e. parenteral nutrition). They will continue to monitor aPTT and send out when necessary. Current Visit: Yes Status: Acute Priority: High Code(s): D68.9 - COAGULATION DEFECT, UNSPECIFIED SNOMED Code(s): 349968454
[2018-10-22 21:35] LABS: Anisocytosis Slight; HCT 21.9 % (39.0-53.0); HGB 7.2 gm/dL (13.0-17.5); Hypochromasia Slight; MCH 28.9 pg (25.0-35.0); MCHC 32.9 g/dL (31.0-37.0); MCV 87.6 fL (80.0-100.0); Mean Platelet Volume 8.7; Platelet Count 171 k/uL (150-450); RDW 17.2 % (11.5-15.5); WBC 10.4 k/uL (3.8-10.6)
--- NOTE | 2018-10-22 22:33 | P.PN ---
Subjective Progress Note Date: 10/22/18 Principal diagnosis: Acute hypoxic respiratory failure secondary to aspiration pneumonia and ARDS Status post Aorto- femoral bypass surgery Patient is a 53-year-old male who underwent aortofemoral bypass graft on 10/07/2018 the right common femoral thromboendarterectomy. Patient had complicated course with acute hypoxemic respiratory failure, possible aspiration pneumonia and ARDS. Patient also developed acute on chronic kidney disease secondary to ATN and contrast nephropathy currently started on hemodialysis. Plan for trach and PEG tube placement. 10/22/2018 Patient had tracheostomy today. PEG tube cannot be placed due to possible ileus. Patient otherwise arousable and follows simple commands but cannot communicate at this time. Chest x-ray showed diffuse interstitial pattern with bilateral small effusions greater on the left. Findings are suggestive of res olving ARDS. Patient did have hemodialysis today. Patient is oliguric. Laboratory data showed WBC 12.9 and hemoglobin 7.4, BUN 63 and creatinine 4.5oliguric, and he is requiring daily hemodialysis at this point. Labs today showed hemoglobin of 7.4 WBC count of 12.9. ABG showed a pO2 of 96 pCO2 of 36 pH of 7.48 No fever no chills. Complete review of systems could not be apparent from the patient. Current medications reviewed. Active Medications Albuterol/Ipratropium (Duoneb 0.5 Mg-3 Mg/3 Ml Soln) 3 ml INHALATION RT-QID [facility] Last Admin: 10/22/18 19:59 Dose: 3 ml Documented by: Albuterol/Ipratropium (Duoneb 0.5 Mg-3 Mg/3 Ml Soln) 3 ml INHALATION RT-Q2H PRN PRN Reason: Shortness Of Breath Or Wheezing Last Admin: 10/19/18 23:20 Dose: 3 ml Documented by: Amiodarone HCl (Cordarone) 200 mg PO BID [facility] Last Admin: 10/22/18 21:08 Dose: 200 mg Documented by: Aspirin (Aspirin) 81 mg PO DAILY [facility] Last Admin: 10/22/18 09:05 Dose: 81 mg Documented by: Bisacodyl (Dulcolax) 10 mg RECTAL DAILY [facility] Last Admin: 10/22/18 14:38 Dose: 10 mg Documented by: Chlorhexidine Gluconate (Peridex) 15 ml MUCOUS MEM BID [facility] Last Admin: 10/22/18 21:08 Dose: 15 ml Documented by: Collagenase (Santyl) 1 applic TOPICAL DAILY [facility] Last Admin: 10/22/18 08:30 Dose: 1 applic Documented by: Darbepoetin Maikel (Aranesp) 40 mcg SQ Q7D [facility] Last Admin: 10/22/18 14:38 Dose: 40 mcg Documented by: Fenofibrate (Lofibra) 160 mg PO DAILY [facility] Last Admin: 10/22/18 08:25 Dose: 160 mg Documented by: Furosemide (Lasix) 80 mg IV Q12HR [facility] Last Admin: 10/22/18 21:08 Dose: 80 mg Documented by: Gabapentin (Neurontin) 300 mg PO TID [facility] Last Admin: 10/22/18 22:21 Dose: 300 mg Documented by: Heparin Sodium (Porcine) (Heparin) 0 unit IV PER PROTOCOL PRN; Protocol PRN Reason: Low PTT Hydromorphone HCl (Dilaudid) 1 mg IVP Q4HR PRN PRN Reason: pain Last Admin: 10/21/18 17:54 Dose: 1 mg Documented by: Propofol 1,000 mg/ IV Solution 100 mls @ 0 mls/hr IV .Q0M [facility]; Protocol Last Admin: 10/22/18 18:09 Dose: 50 mcg/kg/min, 36.15 mls/hr Documented by: Norepinephrine Bitartrate 32 (mg/ Sodium Chloride) 250 mls @ 2.693 mls/hr IV .Q24H [facility]; Protocol Last Admin: 10/22/18 14:41 Dose: Not Given Documented by: Heparin Sodium/Sodium Chloride (25,000 unit/ Sodium Chloride) 250 mls @ 20.682 mls/hr IV .Q12H6M [facility]; Protocol Last Admin: 10/22/18 22:21 Dose: Not Given Documented by: Parenteral Vitamin Supplement 10 ml/ Chromium/Copper/Manganese/Seleni/Zn 1 ml/Sodium Acetate 35 meq/ Calcium Gluconate 2 gm/ Potassium Chloride 20 meq/ Sodium Chloride 10 meq/ Amino Acids/Dextrose 1,062.5 mls @ 50 mls/hr IV .[id number] [facility] Stop: 10/22/18 23:59 Last Admin: 10/22/18 02:46 Dose: 50 mls/hr Documented by: Ceftriaxone Sodium 2 gm/ (Sodium Chloride) 50 mls @ 100 mls/hr IVPB Q24HR [facility] Last Admin: 10/22/18 08:24 Dose: 100 mls/hr Documented by: Parenteral Vitamin Supplement 10 ml/ Chromium/Copper/Manganese/Seleni/Zn 1 ml/Sodium Acetate 35 meq/ Calcium Gluconate 2 gm/ Potassium Chloride 20 meq/ Sodium Chloride 20 meq/ Amino Acids/Dextrose 1,066.5 mls @ 50 mls/hr IV .[id number] [facility] Lidocaine HCl (.Xylocaine 1% Inj (10mg/Ml) For Iv Start) 0.1 ml INTRADERMA PER PROTOCOL PRN PRN Reason: IV Start Last Admin: 10/07/18 10:17 Dose: 0.1 ml Documented by: Miscellaneous Information (Potassium Per Protocol) 1 each MISCELLANE DAILY PRN; Protocol PRN Reason: Per Protocol Miscellaneous Information (Pharmacy To Dose Iv Vancomycin) 1 each MISCELLANE DIRECTED PRN PRN Reason: Per Protocol Naloxone HCl (Narcan) 0.2 mg IV Q2M PRN PRN Reason: Opioid Reversal Pantoprazole Sodium (Protonix) 40 mg IVP DAILY [facility] Last Admin: 10/22/18 08:25 Dose: 40 mg Documented by: Objective - Vital Signs Vital signs: Vital Signs Temp 98.8 F 10/22/18 16:00 Pulse 82 10/22/18 20:18 Resp 24 10/22/18 19:00 BP 119/49 10/22/18 19:00 Pulse Ox 99 10/22/18 19:00 Intake & Output 10/22/18 10/22/18 10/23/18 06:59 18:59 06:59 Intake Total 1326 2138.749 63 Output Total 146 3090 20 Balance 1180 -951.251 43 Weight 120.5 kg Intake: IV 976 1645 63 Normal Saline carrier 120 70 10 Pressure bag 39 24 3 TPN 650 550 50 Vancomycin 2,000 mg In 167 501 Sodium Chloride 0.9% 500 ml 500 ml @ 167 mls/hr IVPB ONCE ONE Rx#: [id number] cefTRIAXone 2 gm In 100 Sodium Chloride 0.9% 50 ml @ 100 mls/hr IVPB Q24HR [facility] Rx#:[id number] Intake, IV Titration 350 493.749 Amount Heparin Sod,Pork in 0.45% 250 130.151 NaCl 25,000 unit In 0.45 % NaCl 1 250ml.bag @ 18 UNITS/KG/HR 20.682 mls/hr IV .Q12H6M [facility] Rx#: [id number] Propofol 1,000 mg In 100 363.598 Empty Bag 1 bag @ Titrate IV .Q0M [facility] Rx#: [id number] Oral 0 0 Output: Urine 146 85 20 Hemodialysis 3000 Estimated Blood Loss 5 Other: Voiding Method Indwelling Catheter Indwelling Catheter ABP, PAP, CO, CI - Last Documented Arterial Blood Pressure 134/52 - Exam PHYSICAL EXAMINATION: Patient is lying in the bed comfortably, no acute distress, awake alert and cannot communicate verbally... HEENT: Normocephalic. Neck is supple. Pupils reactive. Nostrils clear. Oral cavity is moist. Ears reveal no drainage. Neck reveals no JVD, carotid bruits, or thyromegaly. CHEST EXAMINATION: Trachea is central. Tracheostomy tube present. Symmetrical expansion. Bibasilar diminished air entry and crackles positive no wheezing.. CARDIAC: Normal S1, S2 with no gallops. No murmurs ABDOMEN: Soft. Bowel sounds normal. No organomegaly. No abdominal bruits. Extremities: Lateral lower exudate swelling and scrotal edema.. No clubbing or cyanosis Neurologically awake, alert and follows simple commands.. No gross focal deficits noted. Skin: No rash . Multiple ecchymotic patches on the bilateral upper extremities.. Psychiatric: Coperative. Could not be assessed completely Musculoskeletal: No joint swelling or deformity. - Labs CBC & Chem 7: 10/22/18 21:10 10/22/18 04:25 Labs: Abnormal Lab Results - Last 24 Hours (Table) 10/22/18 10/22/18 10/22/18 Range/Units 04:25 04:25 04:25 WBC 12.9 H (3.8-10.6) k/uL RBC 2.64 L (4.30-5.90) m/uL Hgb 7.4 L (13.0-17.5) gm/dL Hct 23.2 L (39.0-53.0) % RDW 17.7 H (11.5-15.5) % Neutrophils # (Manual) 10.50 H (1.3-7.7) k/uL Metamyelocytes # (Man) 0.52 H (0) k/uL Myelocytes # (Manual) 0.39 H (0) k/uL APTT 53.4 H (22.0-30.0) sec Sodium 130 L (137-145) mmol/L Chloride 97 L (98-107) mmol/L BUN 63 H (9-20) mg/dL Creatinine 4.50 H (0.66-1.25) mg/dL Calcium 8.0 L (8.4-10.2) mg/dL Microbiology - Last 24 Hours (Table) 10/21/18 15:31 Gram Stain - Preliminary Leg - Left Wound Culture - Preliminary 10/21/18 15:31 Gram Stain - Preliminary Leg - Left Wound Culture - Preliminary 10/16/18 10:40 Blood Culture - Final Blood No Growth after 144 hours 10/16/18 10:10 Blood Culture - Final Blood No Growth after 144 hours 10/21/18 15:31 Anaerobic Culture - Preliminary Leg - Left 10/21/18 15:31 Anaerobic Culture - Preliminary Leg - Left Assessment and Plan Assessment: Acute hypoxic respiratory failure secondary to ARDS and possible aspiration pneumonia Status post aortofemoral bypass surgery on 10/07/2018 Severe peripheral vascular disease Acute kidney injury secondary to ATN and suspected contrast-induced. Requiring hemodialysis COPD Chronic back pain Paroxysmal atrial fibrillation Aortic dissection as noted on CT abdomen Morbid obesity with BMI 40.4 Plan: Patient is being continued on ventilator support. Plan for regression and PEG tube placement today. Continue with antibiotics in the form of ceftriaxone and vancomycin. Patient is being continued on TPN. Hemodialysis as per nephrology. Patient is being followed by critical care, nephrology and ID. Prognosis remains guarded at this time. Time with Patient: Greater than 30
--- NOTE | 2018-10-22 22:38 | P.PN ---
Subjective Progress Note Date: 10/22/18 53-year-old male with multiple medical troubles including COPD and severe peripheral vascular disease. Upon his presentation to hospital was noted that he had a greater than one-year history of worsening claudication to the lower extremities. Family members relate that he get an appointment hemorrhages could barely move about because of the weakness and pain to his lower extremities. 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 The patient has had ongoing difficulties since that point in time. 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 He required reoperation with thrombectomy of the aorta and then of the right femoral component that of the left femoral component. His status continued to decline he developed worse anuradha renal failure and required dialysis catheter be placed and is now receiving hemodialysis also. When the left femoral portion of the graft occluded the patient developed severe swelling to the left calf area and underwent fasciotomies. He was having significant drainage from his areas which have now dried up and is evidence of the significant fasciotomy wounds that had drainage that has been somewhat foul. Is also developed bilateral deep tissue injuries to his heels and the significant eschar to his buttocks. With all of these difficulties the consult was requested. The patient has been hospitalized 14 days and it was noted originally cultures of the sputum showed evidence of Morax bessy and Haemophilus influenza. He has had significant leukocytosis also an ongoing respiratory failure. The fasciotomy procedure was on October 13. With evidence of concerns to the wounds the pneumonia and antibiotic needs the consult was requested. 10/22/2018 Patient has undergone tracheostomy and pruritic dialysis catheter placement today. Nursing relates tolerated dialysis today without difficulties. Nursing staff relates no difficulties with dressing changes. Objective - Vital Signs Vital signs: Vital Signs Temp 99.0 F 10/22/18 20:00 Pulse 89 10/22/18 21:00 Resp 14 10/22/18 21:00 BP 126/57 10/22/18 21:00 Pulse Ox 100 10/22/18 20:00 Intake & Output 10/22/18 10/22/18 10/23/18 06:59 18:59 06:59 Intake Total 1326 2138.749 189 Output Total 146 3090 35 Balance 1180 -951.251 154 Weight 120.5 kg Intake: IV 976 1645 189 Normal Saline carrier 120 70 30 Pressure bag 39 24 9 TPN 650 550 150 Vancomycin 2,000 mg In 167 501 Sodium Chloride 0.9% 500 ml 500 ml @ 167 mls/hr IVPB ONCE ONE Rx#: [id number] cefTRIAXone 2 gm In 100 Sodium Chloride 0.9% 50 ml @ 100 mls/hr IVPB Q24HR [facility] Rx#:[id number] Intake, IV Titration 350 493.749 Amount Heparin Sod,Pork in 0.45% 250 130.151 NaCl 25,000 unit In 0.45 % NaCl 1 250ml.bag @ 18 UNITS/KG/HR 20.682 mls/hr IV .Q12H6M [facility] Rx#: [id number] Propofol 1,000 mg In 100 363.598 Empty Bag 1 bag @ Titrate IV .Q0M [facility] Rx#: [id number] Oral 0 0 Output: Urine 146 85 35 Hemodialysis 3000 Estimated Blood Loss 5 Other: Voiding Method Indwelling Catheter Indwelling Catheter Indwelling Catheter ABP, PAP, CO, CI - Last Documented Arterial Blood Pressure 132/46 - Exam 53-year-old male who appears to be much older than his stated age remains intubated sedated and mechanically ventilated and hemodynamically stable HEENT: Anicteric, no lesions can been seen in the oral cavity or the endotracheal tube and NG tube. IJ catheter for hemodialysis in the right neck is noted. Neck: The neck is not stiff, no masses palpable Lungs: Symmetrical air entry is noted, basilar crackles heard Heart: Irregular without audible S1 and S2 soft S4 no stiff murmur click or rub is noted Abdomen: Obese, Positive bowel sounds soft and nontender without palpable masses or organomegaly. There was no guarding or rebound. Extremities: The upper extremity no evidence of some generalized edema and evidence of scattered areas of ecchymosis The lower extremities have the extensive bilateral lower extremity edema. Presents of the deep tissue injury of both heels. There is evidence of the eschars present on both buttocks and please refer the nursing photography for the size of these multiple abnormalities. The left leg the patient is evidence of the 2 fasciotomy wounds from 10/13/2018. Also please see the nursing photography for the exact size of these ulcerations. If this point in time they are with evidence of some dryness of the base there is no yung ischemia being seen to the base of the fasciotomy with there is still some exposed muscle. There is some mildly degenerating fat and with manipulation some serous tissue e renetta fluid does come through the open areas. The left foot is well perfused. Neuro: Patient is intubated sedated and mechanically ventilated - Labs CBC & Chem 7: 10/22/18 21:10 10/22/18 04:25 Labs: Abnormal Lab Results - Last 24 Hours (Table) 10/22/18 10/22/18 10/22/18 Range/Units 04:25 04:25 04:25 WBC 12.9 H (3.8-10.6) k/uL RBC 2.64 L (4.30-5.90) m/uL Hgb 7.4 L (13.0-17.5) gm/dL Hct 23.2 L (39.0-53.0) % RDW 17.7 H (11.5-15.5) % Neutrophils # (Manual) 10.50 H (1.3-7.7) k/uL Metamyelocytes # (Man) 0.52 H (0) k/uL Myelocytes # (Manual) 0.39 H (0) k/uL APTT 53.4 H (22.0-30.0) sec Sodium 130 L (137-145) mmol/L Chloride 97 L (98-107) mmol/L BUN 63 H (9-20) mg/dL Creatinine 4.50 H (0.66-1.25) mg/dL Calcium 8.0 L (8.4-10.2) mg/dL 10/22/18 Range/Units 21:10 WBC (3.8-10.6) k/uL RBC 2.50 L (4.30-5.90) m/uL Hgb 7.2 L (13.0-17.5) gm/dL Hct 21.9 L (39.0-53.0) % RDW 17.2 H (11.5-15.5) % Neutrophils # (Manual) (1.3-7.7) k/uL Metamyelocytes # (Man) (0) k/uL Myelocytes # (Manual) (0) k/uL APTT (22.0-30.0) sec Sodium (137-145) mmol/L Chloride (98-107) mmol/L BUN (9-20) mg/dL Creatinine (0.66-1.25) mg/dL Calcium (8.4-10.2) mg/dL Microbiology - Last 24 Hours (Table) 10/22/18 20:40 Blood Culture Gram Stain - Preliminary Blood Blood Culture - Preliminary 10/21/18 23:37 Blood Culture - Preliminary Blood 10/21/18 15:31 Gram Stain - Preliminary Leg - Left Wound Culture - Preliminary 10/21/18 15:31 Gram Stain - Preliminary Leg - Left Wound Culture - Preliminary 10/16/18 10:40 Blood Culture - Final Blood No Growth after 144 hours 10/16/18 10:10 Blood Culture - Final Blood No Growth after 144 hours 10/21/18 15:31 Anaerobic Culture - Preliminary Leg - Left 10/21/18 15:31 Anaerobic Culture - Preliminary Leg - Left Laboratory Results WBC 10.4 k/uL (3.8-10.6) 10/22/18 21:10 RBC 2.50 m/uL (4.30-5.90) L 10/22/18 21:10 Hgb 7.2 gm/dL (13.0-17.5) L 10/22/18 21:10 Hct 21.9 % (39.0-53.0) L 10/22/18 21:10 MCV 87.6 fL (80.0-100.0) 10/22/18 21:10 MCH 28.9 pg (25.0-35.0) 10/22/18 21:10 MCHC 32.9 g/dL (31.0-37.0) 10/22/18 21:10 RDW 17.2 % (11.5-15.5) H 10/22/18 21:10 Plt Count 171 k/uL (150-450) 10/22/18 21:10 Neutrophils % 76 % 10/12/18 20:00 Neutrophils % (Manual) 59 % 10/22/18 04:25 Band Neutrophils % 23 % 10/22/18 04:25 Lymphocytes % 12 % 10/12/18 20:00 Lymphocytes % (Manual) 8 % 10/22/18 04:25 Monocytes % 7 % 10/12/18 20:00 Monocytes % (Manual) 4 % 10/22/18 04:25 Eosinophils % 3 % 10/12/18 20:00 Eosinophils % (Manual) 1 % 10/22/18 04:25 Basophils % 0 % 10/12/18 20:00 Metamyelocytes % 4 % 10/22/18 04:25 Myelocytes % 3 % 10/22/18 04:25 Blast Cells % Not Reportable 10/18/18 05:46 Neutrophils # 7.3 k/uL (1.3-7.7) 10/12/18 20:00 Neutrophils # (Manual) 10.50 k/uL (1.3-7.7) H 10/22/18 04:25 Lymphocytes # 1.2 k/uL (1.0-4.8) 10/12/18 20:00 Lymphocytes # (Manual) 1.03 k/uL (1.0-4.8) 10/22/18 04:25 Monocytes # 0.7 k/uL (0-1.0) 10/12/18 20:00 Monocytes # (Manual) 0.52 k/uL (0-1.0) 10/22/18 04:25 Eosinophils # 0.3 k/uL (0-0.7) 10/12/18 20:00 Eosinophils # (Manual) 0.13 k/uL (0-0.7) 10/22/18 04:25 Basophils # 0.0 k/uL (0-0.2) 10/12/18 20:00 Metamyelocytes # (Man) 0.52 k/uL (0) H 10/22/18 04:25 Myelocytes # (Manual) 0.39 k/uL (0) H 10/22/18 04:25 Blast Cells # (Man) 0.14 k/uL (0) H 10/18/18 05:46 Nucleated RBCs 0 /100 WBC (0-0) 10/22/18 04:25 Manual Slide Review Performed 10/22/18 04:25 Toxic Granulation Present 10/21/18 04:35 Large Platelets Present 10/22/18 04:25 Polychromasia Present 10/22/18 04:25 Hypochromasia Slight 10/22/18 21:10 Poikilocytosis (manual Present 10/22/18 04:25 Basophilic Stippling Present 10/18/18 05:46 Anisocytosis Slight 10/22/18 21:10 Anisocytosis (manual) Present 10/21/18 04:35 Target Cells Present 10/20/18 05:00 PT 9.6 sec (9.0-12.0) 10/13/18 03:15 INR 0.9 (<1.2) 10/13/18 03:15 APTT 53.4 sec (22.0-30.0) H 10/22/18 04:25 Sample Site ted 10/21/18 04:58 ABG pH 7.46 (7.35-7.45) H 10/21/18 04:58 ABG pCO2 37 mmHg (35-45) 10/21/18 04:58 ABG pO2 122 mmHg (83-108) H 10/21/18 04:58 ABG HCO3 26 mmol/L (21-25) H 10/21/18 04:58 ABG Total CO2 27 mmol/L (19-24) H 10/21/18 04:58 ABG O2 Saturation 98.7 % (94-97) H 10/21/18 04:58 ABG Base Excess 2.5 mmol/L 10/21/18 04:58 Donnell Test Yes 10/21/18 04:58 FiO2 40 % 10/21/18 04:58 Sodium 130 mmol/L (137-145) L 10/22/18 04:25 Potassium 4.1 mmol/L (3.5-5.1) 10/22/18 04:25 Chloride 97 mmol/L (98-107) L 10/22/18 04:25 Carbon Dioxide 25 mmol/L (22-30) 10/22/18 04:25 Anion Gap 8 mmol/L 10/22/18 04:25 BUN 63 mg/dL (9-20) H 10/22/18 04:25 Creatinine 4.50 mg/dL (0.66-1.25) H 10/22/18 04:25 Est GFR (CKD-EPI)AfAm 16 (>60 ml/min/1.73 sqM) 10/22/18 04:25 Est GFR (CKD-EPI)NonAf 14 (>60 ml/min/1.73 sqM) 10/22/18 04:25 Glucose 91 mg/dL (74-99) 10/22/18 04:25 POC Glucose (mg/dL) 103 mg/dL (75-99) H 10/15/18 18:14 POC Glu Goat Farmer Jada Jones 10/15/18 18:14 Calcium 8.0 mg/dL (8.4-10.2) L 10/22/18 04:25 Ionized Calcium Deandre 4.5 mg/dL (4.5-5.3) 10/19/18 05:20 Phosphorus 4.2 mg/dL (2.5-4.5) 10/22/18 04:25 Magnesium 2.0 mg/dL (1.6-2.3) 10/22/18 04:25 Iron 23 ug/dL (65-175) L 10/21/18 04:35 TIBC 223 ug/dL (228-460) L 10/21/18 04:35 Iron Saturation 10.31 (15.00-50.00) L 10/21/18 04:35 Ferritin 2665.2 ng/mL (22.0-322.0) H 10/21/18 04:35 Total Bilirubin 1.8 mg/dL (0.2-1.3) H 10/18/18 05:46 AST 700 U/L (17-59) H 10/18/18 05:46 ALT 175 U/L (21-72) H 10/18/18 05:46 Alkaline Phosphatase 94 U/L (38-126) 10/18/18 05:46 Total Protein 4.6 g/dL (6.3-8.2) L 10/18/18 05:46 Albumin 2.2 g/dL (3.5-5.0) L 10/19/18 05:20 Procalcitonin 17.05 ng/mL (0.02-0.09) H 10/18/18 05:46 Urine Color Yellow 10/12/18 02:10 Urine Appearance Clear (Clear) 10/12/18 02:10 Urine pH 5.5 (5.0-8.0) 10/12/18 02:10 Ur Specific [place] 1.020 (1.001-1.035) 10/12/18 02:10 Urine Protein Trace (Negative) H 10/12/18 02:10 Urine Glucose (UA) Negative (Negative) 10/12/18 02:10 Urine Ketones Negative (Negative) 10/12/18 02:10 Urine Blood Moderate (Negative) H 10/12/18 02:10 Urine Nitrite Negative (Negative) 10/12/18 02:10 Urine Bilirubin Negative (Negative) 10/12/18 02:10 Urine Urobilinogen <2.0 mg/dL (<2.0) 10/12/18 02:10 Ur Leukocyte Esterase Negative (Negative) 10/12/18 02:10 Urine WBC 4 /hpf (0-5) 10/12/18 02:10 Ur Squamous Epith Cells <1 /hpf (0-4) 10/12/18 02:10 Hyaline Casts 75 /lpf (0-2) H 10/12/18 02:10 Granular Casts 1 /lpf (0) 10/12/18 02:10 Hep Bs Antigen Non-Reactive (Non-Reactive) 10/15/18 11:45 Hep Bs Antibody Non-Reactive (Non-Reactive) 10/15/18 11:45 Hep Bs Antibody, Quant 3.5 mIU/mL 10/15/18 11:45 Hep B Core Total Ab Non-Reactive (Non-Reactive) 10/15/18 11:45 Miscellaneous Test aPTT To RDH 10/18/18 05:46 Misc Test Result See Comment 10/18/18 05:46 Blood Type A Positive 10/11/18 11:56 Blood Type Confirm A Positive 10/07/18 10:15 Blood Type Recheck No 10/11/18 11:56 Antibody Screen NEGATIVE 10/11/18 11:56 Crossmatch See Detail 10/11/18 11:56 Spec Expiration Date 10/14/2018 - 2186 10/11/18 11:56 Microbiology 10/22/18 20:40 Blood Blood Culture Gram Stain - Preliminary 10/22/18 20:40 Blood Blood Culture - Preliminary 10/21/18 23:37 Blood Blood Culture - Preliminary 10/21/18 15:31 Leg - Left Gram Stain - Preliminary 10/21/18 15:31 Leg - Left Wound Culture - Preliminary 10/21/18 15:31 Leg - Left Gram Stain - Preliminary 10/21/18 15:31 Leg - Left Wound Culture - Preliminary 10/16/18 10:40 Blood Blood Culture - Final No Growth after 144 hours 10/16/18 10:10 Blood Blood Culture - Final No Growth after 144 hours 10/21/18 15:31 Leg - Left Anaerobic Culture - Preliminary 10/21/18 15:31 Leg - Left Anaerobic Culture - Preliminary 10/16/18 15:20 Sputum Gram Stain - Final 10/16/18 15:20 Sputum Sputum Culture - Final 10/12/18 09:30 Sputum Gram Stain - Final 10/12/18 09:30 Sputum Sputum Culture - Final Moraxella(branhamella) catarra Haemophilus influenzae Assessment and Plan (1) Atherosclerosis of pauma artery of both lower extremities with intermittent claudication Current Visit: Yes Status: Acute Code(s): I70.213 - ATHSCL KOI ARTERIES OF EXTRM W INTRMT TATYANA, BI LEGS SNOMED Code(s): 183869457838783 (2) Respiratory failure Current Visit: Yes Status: Acute Code(s): J96.90 - RESPIRATORY FAILURE, UNSP, UNSP W HYPOXIA OR HYPERCAPNIA SNOMED Code(s): 177129213 (3) Pressure ulcer of buttock Narrative/Plan: 53-year-old male with a long-standing history of tobacco use with underlying lung disease as well as severe peripheral vascular disease with ongoing symptomatology worsening over the last greater than 1 year. At the time presentation occurs the patient is miserable with his claudication from his severe peripheral vascular disease. He was evaluated and because of the disease state was taken the operating room and a or aorto bifemoral graft was placed. The patient has had great difficulties that included occlusion of the graft in further surgeries that included the thrombectomy of the aorta graft the right femoral component in the left femoral component. By the time the left femoral component occluded there is evidence of severe swelling to the calf and fasciotomies were performed for limb salvage. The patient remains with respiratory failure intubated sedated and mechanically ventilated but not in vasopressor therapy. He developed acute renal failure as noted dialysis dependent. The patient has developed some fever and follow-up cultures have been requested. To date only positive cultures or Moraxella and Haemophilus and de-escalation to Rocephin will occur. However given the multiple ulcerations vancomycin is added with pharmacy dosing given his hemodialysis dependence at this time. He has severe leukocytosis it is multifactorial including the multiple underlying pressure ulceration. The patient does have cardiac dysrhythmia and is on amiodarone. The patient is in an ICU bed for appropriate offloading heels are being also purposely offloaded. Receiving nutrition via TPN. 10/22/2018 patient is now a tracheostomy applied and dialysis catheter for ongoing hemodialysis. He magnetically stable and comfortable. Antibiotic therapy with Rocephin and vancomycin currently be utilized and multiple cultures obtained and are being monitored. Oncology consult today. Current Visit: Yes Status: Acute Code(s): L89.309 - PRESSURE ULCER OF UNSPECIFIED BUTTOCK, UNSPECIFIED STAGE SNOMED Code(s): 021602371 (4) Pressure injury of deep tissue of left heel Current Visit: Yes Status: Acute Code(s): L89.629 - PRESSURE ULCER OF LEFT HEEL, UNSPECIFIED STAGE SNOMED Code(s): 328871286 (5) Pressure injury of deep tissue of right heel Current Visit: Yes Status: Acute Code(s): L89.619 - PRESSURE ULCER OF RIGHT HEEL, UNSPECIFIED STAGE SNOMED Code(s): 781444071
[2018-10-22 22:47] LABS: Band Neutrophils % 29 %; Lymphocytes # (M) 0.83 k/uL (1.0-4.8); Metamyelocytes # (M) 0.31 k/uL (0); Metamyelocytes % 3 %; Monocytes # (M) 0.21 k/uL (0-1.0); Neutrophils % (M) 57 %; Nucleated Red Blood Cells 0 /100 WBC (0-0); Polychromasia Present; Total Cells Counted 100
[2018-10-22 22:48] LABS: Basophilic Stippling Present; Target Cells Present
[2018-10-22] MEDS: HYDROmorphone 1 MG/ML 1 ML SYRINGE IVP PRN (23:12)
[2018-10-23 00:49] LABS: Cardiolipin Ab IgA Interp NEGATIVE (NEGATIVE); Cardiolipin Ab IgG Interp NEGATIVE (NEGATIVE); Cardiolipin Ab IgM Interp NEGATIVE (NEGATIVE); Cardiolipin IgA Antibody 2.9 U/mL; Cardiolipin IgM Antibody 1.2 U/mL
[2018-10-23] MEDS: HEPARIN SOD,PORK IN 0.45% NACL 25,000 UNIT in 0.45% NACL 1 250ML.BAG IV SCH ×2 (02:26→14:47)
[2018-10-23] MEDS: PROPOFOL 1,000 MG in EMPTY BAG 1 BAG IV SCH ×4 (02:27→13:57)
[2018-10-23 05:23] LABS: Calcium 7.8 mg/dL (8.4-10.2); Magnesium 1.9 mg/dL (1.6-2.3); Phosphorus 5.2 mg/dL (2.5-4.5); Potassium 3.7 mmol/L (3.5-5.1)
[2018-10-23 05:28] LABS: Vancomycin,Random 26.5 ug/mL
[2018-10-23 06:12] LABS: Anisocytosis Slight; HCT 22.4 % (39.0-53.0); HGB 7.3 gm/dL (13.0-17.5); Hypochromasia Slight; MCH 29.8 pg (25.0-35.0); MCHC 32.8 g/dL (31.0-37.0); Mean Platelet Volume 9.3; Platelet Count 161 k/uL (150-450); RBC 2.46 m/uL (4.30-5.90); WBC 9.7 k/uL (3.8-10.6)
--- NOTE | 2018-10-23 06:22 | P.OP ---
Date of Procedure: 10/22/18 Preoperative Diagnosis: ESRD on HD Postoperative Diagnosis: Same Procedure(s) Performed: Right IJ tunneled hemodialysis catheter placement Implants: 23 cm Palidrome HD catheter Anesthesia: KAY Surgeon: Tulio Multani Estimated Blood Loss (ml): 5 Pathology: none sent Condition: stable Disposition: ICU Indications for Procedure: 53 year old gentleman s/p aortobifemoral bypass with multiple takebacks, currently being treated for kidney failure with hemodialysis presents to the OR for placement of tunneled HD catheter and tracheostomy for respiratory failure. Description of Procedure: After written and informed consent was obtained from the patients family and all risk, benefits and complications were discussed the patient was brought to the OR suite. The area of the existing catheter in the neck and chest were prepped and draped in the usual sterile fashion. A timeout was performed in usual fashion with all parties in agreement. A glidewire was placed in the existing catheter and under fluoroscopy it was directed to the inferior vena cava and the catheter was removed. A dilator was then guided over the wire and left in place while we measured the new tunneled catheter. Local anesthetic was then infused in the right chest two fingerbreaths below the clavicle as well as the track leading to the neck site. A small incision was then created in the chest wall and a 23 cm Palidrome catheter was then tunneled to the neck site. The dilator was removed and replaced with a break away sheath which was placed under direct fluoro. The catheter was then placed through the sheath after inner cannula and wire were removed. The sheath was then removed. The catheter was then hep- locked and sutured in place. The skin was cleansed and dressings were placed. The patient tolerated the procedure well.
[2018-10-23 07:18] LABS: ABG Base Excess 1.1 mmol/L; ABG HCO3 25 mmol/L (21-25); ABG Oxygen Saturation 98.4 % (94-97); ABG PCO2 36 mmHg (35-45); ABG PH 7.46 (7.35-7.45); ABG PO2 110 mmHg (83-108); ABG TCO2 26 mmol/L (19-24)
[2018-10-23 07:19] LABS: Allen Test Performed? no
--- NOTE | 2018-10-23 07:57 | XR ---
EXAMINATION TYPE: XR chest 1V portable DATE OF EXAM: 10/23/2018 COMPARISON: Prior chest x-ray 10/22/2018 HISTORY: Intubated TECHNIQUE: Single frontal view of the chest is obtained. FINDINGS: There is been interval placement of a tracheostomy tube which is overlying the tracheal ai r column, endotracheal tube has been removed. Gastric tube remains in place as do the bilateral centr al venous catheter via the left and right jugular approach. Heart size is stable. Retrocardiac densit y persists. Interstitium is increased. No pneumothorax. IMPRESSION: Findings may be indicative of congestive heart failure, volume overload, interstitial ed ashley, cannot exclude basilar pneumonia versus edema or atelectasis. Interval tracheostomy tube placeme nt.
[2018-10-23] MEDS: ASPIRIN 81 MG PO SCH (08:22)
[2018-10-23] MEDS: CHLORHEXIDINE GLUCONATE 15 ML CUP MUCOUS MEM SCH ×2 (08:22→20:41)
[2018-10-23] MEDS: FUROSEMIDE 10 MG/ML 10 ML VIAL IV SCH ×2 (08:22→20:35)
[2018-10-23] MEDS: FENOFIBRATE 160 MG TAB PO SCH (08:23)
[2018-10-23] MEDS: AMIODARONE 200 MG TAB PO SCH ×2 (08:23→20:34)
[2018-10-23] MEDS: PANTOPRAZOLE 40 MG/10 ML VIAL IVP SCH (08:23)
[2018-10-23] MEDS: COLLAGENASE 250 UNIT/GM OINTMENT 30 GM TUBE TOPICAL SCH (08:23)
[2018-10-23] MEDS: GABAPENTIN 300 MG CAP PO SCH ×3 (08:39→20:34)
[2018-10-23] MEDS: IPRATROPIUM-ALBUTEROL 3 ML NEB INHALATION SCH ×4 (08:43→19:59)
[2018-10-23] MEDS ORDERED: POTASSIUM CHLORIDE 10 MEQ in WATER FOR INJECTION 1 100ML.BAG IVPB ONE (10:00)
--- NOTE | 2018-10-23 10:11 | P.PN ---
Subjective Patient is seen in follow-up for acute kidney injury, currently hemodialysis dependent. Patient underwent aortobifemoral bypass graft on 10/07/2018 with right common femoral thromboendarterectomy. He's been off vasopressors since October 20. Urine output improved with IV Lasix - about 300 mL overnight patient underwent tracheostomy on October 22. He also had a tunnel subclavian catheter placed for dialysis. Remains edematous. Vital signs are stable. General: The patient appeared well nourished and normally developed. Tracheostomy noted. HEENT: Head exam is unremarkable. Neck is without jugular venous distension. LUNGS: Breath sounds decreased. HEART: Rate and Rhythm are regular. First and second heart sounds normal. No murmurs, rubs or gallops. ABDOMEN: Bowel sounds present. Soft. EXTREMITITES: 2+ edema. No obvious drainage noted. Scrotal edema noted. Objective - Vital Signs Vital signs: Vital Signs Temp 99.5 F 10/23/18 08:00 Pulse 90 10/23/18 09:00 Resp 24 10/23/18 09:00 BP 151/66 10/23/18 09:00 Pulse Ox 99 10/23/18 09:00 Intake & Output 10/22/18 10/23/18 10/23/18 18:59 06:59 18:59 Intake Total 2138.749 1075.849 410.09 Output Total 3090 330 1030 Balance -951.251 745.849 -619.91 Weight 118.6 kg Intake: IV 1645 756 292 Normal Saline carrier 70 120 30 Pressure bag 24 36 12 TPN 550 600 200 Vancomycin 2,000 mg In 501 Sodium Chloride 0.9% 500 ml 500 ml @ 167 mls/hr IVPB ONCE ONE Rx#: [id number] cefTRIAXone 2 gm In 100 50 Sodium Chloride 0.9% 50 ml @ 100 mls/hr IVPB Q24HR [facility] Rx#:[id number] Intake, IV Titration 493.749 319.849 118.09 Amount Heparin Sod,Pork in 0.45% 130.151 119.849 NaCl 25,000 unit In 0.45 % NaCl 1 250ml.bag @ 18 UNITS/KG/HR 20.682 mls/hr IV .Q12H6M [facility] Rx#: [id number] Propofol 1,000 mg In 363.598 200 118.09 Empty Bag 1 bag @ Titrate IV .Q0M [facility] Rx#: [id number] Oral 0 0 Output: Gastric Drainage 800 Urine 85 330 230 Hemodialysis 3000 Estimated Blood Loss 5 Other: Voiding Method Indwelling Catheter Indwelling Catheter ABP, PAP, CO, CI - Last Documented Arterial Blood Pressure 160/58 - Labs CBC & Chem 7: 10/23/18 04:30 10/23/18 04:30 Labs: Abnormal Lab Results - Last 24 Hours (Table) 10/22/18 10/23/18 10/23/18 Range/Units 21:10 04:30 04:30 RBC 2.50 L 2.46 L (4.30-5.90) m/uL Hgb 7.2 L 7.3 L (13.0-17.5) gm/dL Hct 21.9 L 22.4 L (39.0-53.0) % RDW 17.2 H 17.0 H (11.5-15.5) % Neutrophils # (Manual) 8.90 H (1.3-7.7) k/uL Lymphocytes # (Manual) 0.83 L (1.0-4.8) k/uL Metamyelocytes # (Man) 0.31 H (0) k/uL APTT (22.0-30.0) sec ABG pH (7.35-7.45) ABG pO2 (83-108) mmHg ABG Total CO2 (19-24) mmol/L ABG O2 Saturation (94-97) % Sodium 129 L (137-145) mmol/L Chloride 95 L (98-107) mmol/L BUN 64 H (9-20) mg/dL Creatinine 4.62 H (0.66-1.25) mg/dL Calcium 7.8 L (8.4-10.2) mg/dL Phosphorus 5.2 H (2.5-4.5) mg/dL 10/23/18 10/23/18 Range/Units 07:16 08:00 RBC (4.30-5.90) m/uL Hgb (13.0-17.5) gm/dL Hct (39.0-53.0) % RDW (11.5-15.5) % Neutrophils # (Manual) (1.3-7.7) k/uL Lymphocytes # (Manual) (1.0-4.8) k/uL Metamyelocytes # (Man) (0) k/uL APTT 63.0 H (22.0-30.0) sec ABG pH 7.46 H (7.35-7.45) ABG pO2 110 H (83-108) mmHg ABG Total CO2 26 H (19-24) mmol/L ABG O2 Saturation 98.4 H (94-97) % Sodium (137-145) mmol/L Chloride (98-107) mmol/L BUN (9-20) mg/dL Creatinine (0.66-1.25) mg/dL Calcium (8.4-10.2) mg/dL Phosphorus (2.5-4.5) mg/dL Microbiology - Last 24 Hours (Table) 10/22/18 20:40 Blood Culture Gram Stain - Preliminary Blood Blood Culture - Preliminary Coagulase Negative Staph 10/21/18 23:49 Blood Culture - Preliminary Blood No Growth after 24 hours 10/21/18 23:37 Blood Culture - Preliminary Blood 10/21/18 15:31 Gram Stain - Preliminary Leg - Left Wound Culture - Preliminary 10/21/18 15:31 Gram Stain - Preliminary Leg - Left Wound Culture - Preliminary 10/16/18 10:40 Blood Culture - Final Blood No Growth after 144 hours 10/16/18 10:10 Blood Culture - Final Blood No Growth after 144 hours Assessment and Plan Plan: Assessment: 1. Acute kidney injury secondary to ATN secondary to hypotension and contrast- induced nephropathy. Currently hemodialysis dependent. No evidence of renal recovery at this time. Patient's creatinine in August 2018 was in the range of 1.3-1.7. 2. 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 Vascular surgery following. 3. Volume overload. 4. A. fib with RVR. Now rate controlled. 5. Chronic kidney disease stage III secondary to nephrosclerosis. Baseline creatinine in the range of 1.3-1.7. 6. Anemia of chronic illness. High ferritin level noted. Maintained on Aranesp. 7. Hypervolemic hyponatremia. 8. Ileus. Maintained on TPN. Plan: Hemodialysis today and again tomorrow. Will try for 3-4 L ultrafiltration. Maintain IV Lasix 80 mg twice daily. Continue to monitor renal function and urine output. Monitor vancomycin levels. Target level below 20.
[2018-10-23] MEDS: HYDROmorphone 1 MG/ML 1 ML SYRINGE IVP PRN ×3 (11:36→23:41)
--- NOTE | 2018-10-23 12:12 | P.PN ---
Subjective Progress Note Date: 10/23/18 Principal diagnosis: acute ventilator-dependent hypoxic respiratory failure secondary to aspiration pneumonia and ARDS. On 10/20/2018 of seeing this patient for a follow-up. The patient is sedated on 30 mics of propofol. He was able to come off sedation adequately yesterday as the patient became restless and they suggested a mechanical ventilator. This morning it is back on sedation. He was on a PEEP of 11 with an FiO2 of 40% and a rate of 400 and respiratory rate of 32. I realize that the patient ever pressure lower and he was sucking way higher tidal volumes as with provided to him through the mechanical ventilator. Based on that, switch this patient to a VC plus mode and increase the tidal volume to 500 and dropped a respiratory rate up to 24 and dropped PEEP down to 9 keeping the FiO2 at 40% and the chest x-ray shows improvement of breath and pulmonary infiltrates. The patient's airway pressure steadily on the decline. Lower lobe consolidation improving and the patient is currently on IV meropenem. He is on TPN for nutritional support. Abdomen is slightly distended and hypoactive bowel sounds. Orogastric tube is in place. Surgical abdominal wound site is dry clean and intact. The groin wounds are clean and intact. Pulses in the lower extremities are obtained and measured by Doppler. He has undergone 4 sessions of hemodialysis and the lacer ation was done yesterday without any complication with significant ultrafiltration. He is afebrile. He is hemodynamically stable on no pressors and both of vasopressin and levo fed has been discontinued. I am thinking and the patient will be a difficult wean and is reasonable to consider a PEG and trach special with above-mentioned medical problems and comorbidities encountered over the past 1 week. His white cell count is 17. Hemoglobin stable at 8.0. The patient remains on IV heparin. PH is 7.49 with a pCO2 of 38 and pO2 of 103. There is scrotal edema which is also improving. Reevaluated today on 10/21/2018, patient remains on mechanical ventilation, sedated, presently on assist control rate of 22, FiO2 of 45%, tidal volume of 500, and PEEP of 6. patient is actually on volume control plus mode of mechanical ventilation. Hence his tidal volume varies from breast of breath. I was able to drop the PEEP down to 6 today. Patient seems to be ventilating quite well. He is hemodynamically stable today, off all pressors, remains on antibiotics for left lower lobe consolidation and fever, he is on Merrem. Remains on TPN, and he may undergo tracheostomy and PEG tube placement today by Dr. rodriguez. However he is yet to have his dialysis this morning.WBC count is 15.8 hemoglobin is 7.7. ABG this morning showed a pO2 of 122 pCO2 of 37 pH of 7.46.worsening renal profile is noted today, BUN is 66 creatinine is 5.03, patient remains oliguric, roughly about 30 mL of urine per shift. Patient was reevaluated today on , remains on mechanical ventilation. Patient was reevaluated today on 10/22/2018, remains on mechanical ventilation, he is now on assist control rate of 22, tidal volume of 500/volume control plus, FiO2 45%, PEEP of 6. Remains on propofol at 20 mcg/kg/m, patient is arousable, seems to follow simple instructions, presently on dialysis. Patient is van eduled to undergo tracheostomy and possible PEG tube placement today. Chest x- ray showed diffuse interstitial pattern with bilateral small effusions greater on the left. The findings are suggestive of resolving ARDS, doubt cardiogenic pulmonary edema. Although the possibility of interstitial edema is not entirely ruled out considering the patient is oliguric, and he is requiring daily hemodialysis at this point. Labs today showed hemoglobin of 7.4 WBC count of 12.9. ABG showed a pO2 of 96 pCO2 of 36 pH of 7.48 Reevaluated today on 10/23/2018, patient remains on mechanical ventilation, und erwent tracheostomy today, but no PEG tube was placed. Patient remains on same ventilator settings, assist control rate of 22, tidal volume 500+ FiO2 45% PEEP 6. Patient had an uneventful tracheostomy however there is evidence of some leak and volume loss around the tracheostomy site. And what is more concerning today is the fact that the patient had multiple positive blood cultures for what seems to be staph epidermidis, and I believe the patient may have catheter related sepsis from his catheters including his central line and arterial line. Most likely it is his left subclavian central line which would have to be removed today, and the tip will be cultured. I have instructed the nurses to call for a midline placement in the meantime the patient remains on antibiotics in the form of vancomycin. After 24 or 48 hours, decline may have to be placed. Patient remains sedated, he is on propofol, and I plan to taper the propofol down, assess his mental status. ABG today showed a pO2 of 110 pCO2 of 36 pH of 7.46 electrolytes were noted renal profile remains abnormal sodium is 129. Patient remains on dialysis and he is scheduled to undergo dialysis again today. Chest x-ray showed mild interstitial edema. And bibasilar atelectasis. Objective - Vital Signs Vital signs: Vital Signs Temp 99.5 F 10/23/18 08:00 Pulse 104 H 10/23/18 11:47 Resp 24 10/23/18 11:30 BP 98/80 10/23/18 11:30 Pulse Ox 99 10/23/18 11:30 Intake & Output 10/22/18 10/23/18 10/23/18 18:59 06:59 18:59 Intake Total 2138.749 1075.849 473.09 Output Total 3090 330 1180 Balance -951.251 745.849 -706.91 Weight 118.6 kg Intake: IV 1645 756 355 Normal Saline carrier 70 120 40 Pressure bag 24 36 15 TPN 550 600 250 Vancomycin 2,000 mg In 501 Sodium Chloride 0.9% 500 ml 500 ml @ 167 mls/hr IVPB ONCE ONE Rx#: [id number] cefTRIAXone 2 gm In 100 50 Sodium Chloride 0.9% 50 ml @ 100 mls/hr IVPB Q24HR [facility] Rx#:[id number] Intake, IV Titration 493.749 319.849 118.09 Amount Heparin Sod,Pork in 0.45% 130.151 119.849 NaCl 25,000 unit In 0.45 % NaCl 1 250ml.bag @ 18 UNITS/KG/HR 20.682 mls/hr IV .Q12H6M [facility] Rx#: [id number] Propofol 1,000 mg In 363.598 200 118.09 Empty Bag 1 bag @ Titrate IV .Q0M [facility] Rx#: [id number] Oral 0 0 Output: Gastric Drainage 800 Urine 85 330 380 Hemodialysis 3000 Estimated Blood Loss 5 Other: Voiding Method Indwelling Catheter Indwelling Catheter Indwelling Catheter ABP, PAP, CO, CI - Last Documented Arterial Blood Pressure 175/69 - Exam GENERAL EXAM: revealed a 53-year-old white male on mechanical ventilation, sedated, in no distress. On propofol. HEAD: Normocephalic/atraumatic. EENT: PERRLA, EOMI, tracheostomy seems to be intact no neck masses. Left subclavian central line is noted. CHEST: No chest wall deformity. Symmetrical expansion. LUNGS:minimal fine crackles at the bases. No rhonchi and no wheezes. CVS: normal S1 and S2, no gallops. No murmur. ABDOMEN:soft nontender no megaly. Diminished bowel sounds. Midabdominal and Bilateral groin incisions, left groin incision with wound VAC in place. Significant scrotal swelling is noted EXTREMITIES: The upper extremity no evidence of some generalized edema and evidence of scattered areas of ecchymosis The lower extremities have the extensive bilateral lower extremity edema. Presents of the deep tissue injury of both heels. There is evidence of the eschars present on both buttocks. The left leg the patient is evidence of the 2 fasciotomy wounds from 10/13/2018. evidence of some dryness of the base there is no yung ischemia being seen to the base of the fasciotomy with there is still some exposed muscle. There is some mildly degenerating fat and with manipulation some serous tissue edema fluid does come through the open areas. MUSCULOSKELETAL: cannot be assessed. Patient is sedated on mechanical ventilation SKIN: As noted under extremities. CENTRAL NERVOUS SYSTEM: Arousable on propofol, followed extremely simple instructions. PSYCHIATRIC: Unable to perform - Labs CBC & Chem 7: 10/23/18 04:30 10/23/18 04:30 Labs: Abnormal Lab Results - Last 24 Hours (Table) 10/22/18 10/23/18 10/23/18 Range/Units 21:10 04:30 04:30 RBC 2.50 L 2.46 L (4.30-5.90) m/uL Hgb 7.2 L 7.3 L (13.0-17.5) gm/dL Hct 21.9 L 22.4 L (39.0-53.0) % RDW 17.2 H 17.0 H (11.5-15.5) % Neutrophils # (Manual) 8.90 H (1.3-7.7) k/uL Lymphocytes # (Manual) 0.83 L (1.0-4.8) k/uL Metamyelocytes # (Man) 0.31 H (0) k/uL APTT (22.0-30.0) sec ABG pH (7.35-7.45) ABG pO2 (83-108) mmHg ABG Total CO2 (19-24) mmol/L ABG O2 Saturation (94-97) % Sodium 129 L (137-145) mmol/L Chloride 95 L (98-107) mmol/L BUN 64 H (9-20) mg/dL Creatinine 4.62 H (0.66-1.25) mg/dL Calcium 7.8 L (8.4-10.2) mg/dL Phosphorus 5.2 H (2.5-4.5) mg/dL 10/23/18 10/23/18 Range/Units 07:16 08:00 RBC (4.30-5.90) m/uL Hgb (13.0-17.5) gm/dL Hct (39.0-53.0) % RDW (11.5-15.5) % Neutrophils # (Manual) (1.3-7.7) k/uL Lymphocytes # (Manual) (1.0-4.8) k/uL Metamyelocytes # (Man) (0) k/uL APTT 63.0 H (22.0-30.0) sec ABG pH 7.46 H (7.35-7.45) ABG pO2 110 H (83-108) mmHg ABG Total CO2 26 H (19-24) mmol/L ABG O2 Saturation 98.4 H (94-97) % Sodium (137-145) mmol/L Chloride (98-107) mmol/L BUN (9-20) mg/dL Creatinine (0.66-1.25) mg/dL Calcium (8.4-10.2) mg/dL Phosphorus (2.5-4.5) mg/dL Microbiology - Last 24 Hours (Table) 10/22/18 20:40 Blood Culture Gram Stain - Preliminary Blood Blood Culture - Preliminary Coagulase Negative Staph 10/21/18 23:49 Blood Culture - Preliminary Blood No Growth after 24 hours 10/21/18 23:37 Blood Culture - Preliminary Blood 10/21/18 15:31 Gram Stain - Preliminary Leg - Left Wound Culture - Preliminary 10/21/18 15:31 Gram Stain - Preliminary Leg - Left Wound Culture - Preliminary 10/16/18 10:40 Blood Culture - Final Blood No Growth after 144 hours 10/16/18 10:10 Blood Culture - Final Blood No Growth after 144 hours Assessment and Plan Assessment: impression: 1 acute ventilator-dependent hypoxic respiratory failure secondary to pneumonia and ARDS. most likely secondary to Moraxella catarrhalis and Haemophilus influenza as noted on the positive sputum cultures.patient is on Rocephin and vancomycin as per infectious disease on the case 2 peripheral vessel occlusive disease, status post aortobifemoral bypass surgery on 11/03/2018, with complicated course complicated by pneumonia and ARDS acute kidney injury 3 acute ischemic limbs postop requiring emergent thrombectomy on the right on 10/11/2018 and on the left on 10/23/2018. 4 acute septic shock is likely based on the fact that the patient required significant MR pressors at one point. However presently resolved. 5 acute kidney injury/acute tubular necrosis secondary to sepsis. Patient remains on hemodialysis. 6 aortic dissection as noted on CT of the abdomen 7 chronic back pain 8 obesity/BMI of 39.3 9 deep tissue injury to his left heel 10 paroxysmal atrial fibrillation 11 status post tracheostomy and dialysis catheter placement on 10/22/2018. 12 strongly suspect catheter related sepsis from central line patient had multiple positive blood culture for staph epidermidis. Hence the central line would have to be removed, and it would be cultured. In the meantime continue vancomycin. Infectious disease is following. We'll arrange for a midline to be placed by the cardiac catheterization staff. recommendation: Continue ventilatory support, nutritional support, antibiotics, hemodialysis, continue TPN, consider removing central line, quite concerned about central line sepsis. And ongoing bacteremia. Patient will remain on vancomycin, will give the patient some assessment off propofol or on a low dose of propofol today, and decide whether we can eventually go to [facility]. This is very unlikely considering all his issues as noted above. Obviously the patient is critically ill, and prognosis is extremely poor and guarded. Critical care time is 35 minutes Time with Patient: Greater than 30
--- NOTE | 2018-10-23 14:37 | P.PN ---
Subjective Progress Note Date: 10/23/18 Principal diagnosis: clotting In follow-up today patient is off sedation, not currently following commands, does not appear to be in any acute distress Objective - Vital Signs Vital signs: Vital Signs Temp 99.5 F 10/23/18 08:00 Pulse 105 H 10/23/18 13:00 Resp 11 L 10/23/18 13:00 BP 119/79 10/23/18 13:00 Pulse Ox 100 10/23/18 13:00 Intake & Output 10/22/18 10/23/18 10/23/18 18:59 06:59 18:59 Intake Total 2138.749 5897.639 7733.836 Output Total 3090 330 1225 Balance -951.251 745.849 -33.164 Weight 118.6 kg 118.6 kg Intake: IV 1645 756 481 Normal Saline carrier 70 120 60 Pressure bag 24 36 21 TPN 550 600 350 Vancomycin 2,000 mg In 501 Sodium Chloride 0.9% 500 ml 500 ml @ 167 mls/hr IVPB ONCE ONE Rx#: [id number] cefTRIAXone 2 gm In 100 50 Sodium Chloride 0.9% 50 ml @ 100 mls/hr IVPB Q24HR [facility] Rx#:[id number] Intake, IV Titration 493.749 319.849 710.836 Amount Heparin Sod,Pork in 0.45% 130.151 119.849 NaCl 25,000 unit In 0.45 % NaCl 1 250ml.bag @ 18 UNITS/KG/HR 20.682 mls/hr IV .Q12H6M [facility] Rx#: [id number] Mvi, Adult No.4 with Vit 563.333 K 10 ml Trace (Conc-1Ml/ Dose) 1 ml Sodium Acetate 35 meq Calcium Gluconate 2 gm Potassium Chloride 20 meq Sodium Chloride 2. 5MEQ/ml Vial 20 meq In Amino Acid 5%-D15w 1,000 ml @ 50 mls/hr IV . [id number] [facility] Rx#:[id number] Propofol 1,000 mg In 363.598 200 147.503 Empty Bag 1 bag @ Titrate IV .Q0M [facility] Rx#: [id number] Oral 0 0 Output: Gastric Drainage 800 Urine 85 330 425 Hemodialysis 3000 Estimated Blood Loss 5 Other: Voiding Method Indwelling Catheter Indwelling Catheter Indwelling Catheter ABP, PAP, CO, CI - Last Documented Arterial Blood Pressure 114/54 - Exam Well-developed, obese, male laying in bed, normocephalic, mechanical ventilation settings being adjusted, chest expansion is symmetrical, abd is distended, dialysis today, bilateral lower extremities are wrapped, pitting edema, no unusual bleeding noted around lines. - Labs CBC & Chem 7: 10/23/18 04:30 10/23/18 04:30 Labs: Abnormal Lab Results - Last 24 Hours (Table) 10/22/18 10/23/18 10/23/18 Range/Units 21:10 04:30 04:30 RBC 2.50 L 2.46 L (4.30-5.90) m/uL Hgb 7.2 L 7.3 L (13.0-17.5) gm/dL Hct 21.9 L 22.4 L (39.0-53.0) % RDW 17.2 H 17.0 H (11.5-15.5) % Neutrophils # (Manual) 8.90 H (1.3-7.7) k/uL Lymphocytes # (Manual) 0.83 L (1.0-4.8) k/uL Metamyelocytes # (Man) 0.31 H (0) k/uL APTT (22.0-30.0) sec ABG pH (7.35-7.45) ABG pO2 (83-108) mmHg ABG Total CO2 (19-24) mmol/L ABG O2 Saturation (94-97) % Sodium 129 L (137-145) mmol/L Chloride 95 L (98-107) mmol/L BUN 64 H (9-20) mg/dL Creatinine 4.62 H (0.66-1.25) mg/dL Calcium 7.8 L (8.4-10.2) mg/dL Phosphorus 5.2 H (2.5-4.5) mg/dL 10/23/18 10/23/18 Range/Units 07:16 08:00 RBC (4.30-5.90) m/uL Hgb (13.0-17.5) gm/dL Hct (39.0-53.0) % RDW (11.5-15.5) % Neutrophils # (Manual) (1.3-7.7) k/uL Lymphocytes # (Manual) (1.0-4.8) k/uL Metamyelocytes # (Man) (0) k/uL APTT 63.0 H (22.0-30.0) sec ABG pH 7.46 H (7.35-7.45) ABG pO2 110 H (83-108) mmHg ABG Total CO2 26 H (19-24) mmol/L ABG O2 Saturation 98.4 H (94-97) % Sodium (137-145) mmol/L Chloride (98-107) mmol/L BUN (9-20) mg/dL Creatinine (0.66-1.25) mg/dL Calcium (8.4-10.2) mg/dL Phosphorus (2.5-4.5) mg/dL Microbiology - Last 24 Hours (Table) 10/22/18 20:40 Blood Culture Gram Stain - Preliminary Blood Blood Culture - Preliminary Coagulase Negative Staph 10/21/18 23:49 Blood Culture - Preliminary Blood No Growth after 24 hours 10/21/18 23:37 Blood Culture - Preliminary Blood 10/21/18 15:31 Gram Stain - Preliminary Leg - Left Wound Culture - Preliminary 10/21/18 15:31 Gram Stain - Preliminary Leg - Left Wound Culture - Preliminary 10/16/18 10:40 Blood Culture - Final Blood No Growth after 144 hours 10/16/18 10:10 Blood Culture - Final Blood No Growth after 144 hours Assessment and Plan (1) Blood clotting tendency Narrative/Plan: Cardiolipin antibodies have all returned negative. Other lab results still pending. Patient has been able to remain on heparin drip and aspirin-unless during a procedure-no evidence currently of bleeding, hemoglobin is low but stable. Close monitoring of hemoglobin. Continue anticoagulation and antiplatelet therapy as prescribed, we will update the medical record as results report. Current Visit: Yes Status: Acute Priority: High Code(s): D68.9 - COAGULATION DEFECT, UNSPECIFIED SNOMED Code(s): 498715557
[2018-10-23] MEDS: BISACODYL 10 MG SUPP RECTAL SCH (15:30)
[2018-10-23] MEDS: NOREPINEPHRINE 32 MG in SODIUM CHLORIDE 0.9% 218 ML IV SCH (15:44)
[2018-10-23] MEDS ORDERED: [UNRECOGNIZED DRUG - REMARK] IV SCH ×14 (21:00)
[2018-10-23] MEDS ORDERED: ACETAMINOPHEN IV (For NPO) 1,000 MG in EMPTY BAG 1 BAG IVPB STA (21:07)
--- NOTE | 2018-10-23 22:45 | P.PN ---
Subjective Progress Note Date: 10/23/18 53-year-old male with multiple medical troubles including COPD and severe peripheral vascular disease. Upon his presentation to hospital was noted that he had a greater than one-year history of worsening claudication to the lower extremities. Family members relate that he get an appointment hemorrhages could barely move about because of the weakness and pain to his lower extremities. 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 The patient has had ongoing difficulties since that point in time. 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 He required reoperation with thrombectomy of the aorta and then of the right femoral component that of the left femoral component. His status continued to decline he developed worse anuradha renal failure and required dialysis catheter be placed and is now receiving hemodialysis also. When the left femoral portion of the graft occluded the patient developed severe swelling to the left calf area and underwent fasciotomies. He was having significant drainage from his areas which have now dried up and is evidence of the significant fasciotomy wounds that had drainage that has been somewhat foul. Is also developed bilateral deep tissue injuries to his heels and the significant eschar to his buttocks. With all of these difficulties the consult was requested. The patient has been hospitalized 14 days and it was noted originally cultures of the sputum showed evidence of Morax bessy and Haemophilus influenza. He has had significant leukocytosis also an ongoing respiratory failure. The fasciotomy procedure was on October 13. With evidence of concerns to the wounds the pneumonia and antibiotic needs the consult was requested. 10/22/2018 Patient has undergone tracheostomy and pruritic dialysis catheter placement today. Nursing relates tolerated dialysis today without difficulties. Nursing staff relates no difficulties with dressing changes. 10/23/2018 tracheostomy has been performed. IV access is in place for dialysis. His fevers have improved. There is evidence of blood culture with coagulase- negative staph which is of concern given his protracted difficulties. Objective - Vital Signs Vital signs: Vital Signs Temp 101.2 F H 10/23/18 21:00 Pulse 112 H 10/23/18 21:00 Resp 12 10/23/18 21:00 BP 134/81 10/23/18 21:00 Pulse Ox 98 10/23/18 21:00 Intake & Output 10/23/18 10/23/18 10/24/18 06:59 18:59 06:59 Intake Total 0017.324 7955.836 333 Output Total 330 5360 95 Balance 995.849 -3903.164 238 Weight 118.6 kg 118.6 kg Intake: IV 756 746 333 Normal Saline carrier 120 110 30 PPN 200 300 Pressure bag 36 36 3 TPN 600 350 cefTRIAXone 2 gm In 50 Sodium Chloride 0.9% 50 ml @ 100 mls/hr IVPB Q24HR [facility] Rx#:[id number] Intake, IV Titration 569.849 710.836 Amount Heparin Sod,Pork in 0.45% 369.849 NaCl 25,000 unit In 0.45 % NaCl 1 250ml.bag @ 18 UNITS/KG/HR 20.682 mls/hr IV .Q12H6M [facility] Rx#: [id number] Mvi, Adult No.4 with Vit 563.333 K 10 ml Trace (Conc-1Ml/ Dose) 1 ml Sodium Acetate 35 meq Calcium Gluconate 2 gm Potassium Chloride 20 meq Sodium Chloride 2. 5MEQ/ml Vial 20 meq In Amino Acid 5%-D15w 1,000 ml @ 50 mls/hr IV . [id number] [facility] Rx#:[id number] Propofol 1,000 mg In 200 147.503 Empty Bag 1 bag @ Titrate IV .Q0M [facility] Rx#: [id number] Oral 0 Output: Gastric Drainage 800 Urine 330 560 95 Hemodialysis 4000 Other: Voiding Method Indwelling Catheter Indwelling Catheter ABP, PAP, CO, CI - Last Documented Arterial Blood Pressure 145/62 - Exam 53-year-old male who appears to be much older than his stated age remains sedated and mechanically ventilated via his tracheostomy and hemodynamically stable HEENT: Anicteric, no lesions can been seen in the oral cavity endotracheal tube has been transitioned to the tracheostomy and its functioning well without bleeding IJ catheter for hemodialysis in the right neck has been removed. Neck: The neck is not stiff, no masses palpable Lungs: Symmetrical air entry is noted, basilar crackles heard Heart: Irregular without audible S1 and S2 soft S4 no stiff murmur click or rub is noted Abdomen: Obese, Positive bowel sounds soft and nontender without palpable masses or organomegaly. There was no guarding or rebound. Extremities: The upper extremity no evidence of some generalized edema and evidence of scattered areas of ecchymosis The lower extremities have the extensive bilateral lower extremity edema. Presents of the deep tissue injury of both heels. There is evidence of the eschars present on both buttocks and please refer the nursing photography for the size of these multiple abnormalities. The left leg the patient is evidence of the 2 fasciotomy wounds from 10/13/2018. Also please see the nursing photog elroy for the exact size of these ulcerations. If this point in time they are with evidence of some dryness of the base there is no yung ischemia being seen to the base of the fasciotomy with there is still some exposed muscle. There is some mildly degenerating fat and with manipulation some serous tissue edema fluid does come through the open areas. The left foot is well perfused. Neuro: Patient is intubated sedated and mechanically ventilated - Labs CBC & Chem 7: 10/23/18 04:30 10/23/18 04:30 Labs: Abnormal Lab Results - Last 24 Hours (Table) 10/22/18 10/23/18 10/23/18 Range/Units 21:10 04:30 04:30 RBC 2.46 L (4.30-5.90) m/uL Hgb 7.3 L (13.0-17.5) gm/dL Hct 22.4 L (39.0-53.0) % RDW 17.0 H (11.5-15.5) % Neutrophils # (Manual) 8.90 H (1.3-7.7) k/uL Lymphocytes # (Manual) 0.83 L (1.0-4.8) k/uL Metamyelocytes # (Man) 0.31 H (0) k/uL APTT (22.0-30.0) sec ABG pH (7.35-7.45) ABG pO2 (83-108) mmHg ABG Total CO2 (19-24) mmol/L ABG O2 Saturation (94-97) % Sodium 129 L (137-145) mmol/L Chloride 95 L (98-107) mmol/L BUN 64 H (9-20) mg/dL Creatinine 4.62 H (0.66-1.25) mg/dL Calcium 7.8 L (8.4-10.2) mg/dL Phosphorus 5.2 H (2.5-4.5) mg/dL 10/23/18 10/23/18 Range/Units 07:16 08:00 RBC (4.30-5.90) m/uL Hgb (13.0-17.5) gm/dL Hct (39.0-53.0) % RDW (11.5-15.5) % Neutrophils # (Manual) (1.3-7.7) k/uL Lymphocytes # (Manual) (1.0-4.8) k/uL Metamyelocytes # (Man) (0) k/uL APTT 63.0 H (22.0-30.0) sec ABG pH 7.46 H (7.35-7.45) ABG pO2 110 H (83-108) mmHg ABG Total CO2 26 H (19-24) mmol/L ABG O2 Saturation 98.4 H (94-97) % Sodium (137-145) mmol/L Chloride (98-107) mmol/L BUN (9-20) mg/dL Creatinine (0.66-1.25) mg/dL Calcium (8.4-10.2) mg/dL Phosphorus (2.5-4.5) mg/dL Microbiology - Last 24 Hours (Table) 10/21/18 15:31 Anaerobic Culture - Preliminary Leg - Left 10/23/18 15:12 Catheter Tip Culture - Preliminary Catheter Tip 10/22/18 20:40 Blood Culture Gram Stain - Final Blood Blood Culture - Final Coagulase Negative Staph 10/21/18 15:31 Gram Stain - Final Leg - Left Wound Culture - Final 10/21/18 15:31 Gram Stain - Final Leg - Left Wound Culture - Final 10/21/18 23:49 Blood Culture - Preliminary Blood No Growth after 24 hours 10/21/18 23:37 Blood Culture - Preliminary Blood Laboratory Results WBC 9.7 k/uL (3.8-10.6) 10/23/18 04:30 RBC 2.46 m/uL (4.30-5.90) L 10/23/18 04:30 Hgb 7.3 gm/dL (13.0-17.5) L 10/23/18 04:30 Hct 22.4 % (39.0-53.0) L 10/23/18 04:30 MCV 91.0 fL (80.0-100.0) 10/23/18 04:30 MCH 29.8 pg (25.0-35.0) 10/23/18 04:30 MCHC 32.8 g/dL (31.0-37.0) 10/23/18 04:30 RDW 17.0 % (11.5-15.5) H 10/23/18 04:30 Plt Count 161 k/uL (150-450) 10/23/18 04:30 Neutrophils % 76 % 10/12/18 20:00 Neutrophils % (Manual) 57 % 10/22/18 21:10 Band Neutrophils % 29 % 10/22/18 21:10 Lymphocytes % 12 % 10/12/18 20:00 Lymphocytes % (Manual) 8 % 10/22/18 21:10 Monocytes % 7 % 10/12/18 20:00 Monocytes % (Manual) 2 % 10/22/18 21:10 Eosinophils % 3 % 10/12/18 20:00 Eosinophils % (Manual) 1 % 10/22/18 21:10 Basophils % 0 % 10/12/18 20:00 Metamyelocytes % 3 % 10/22/18 21:10 Myelocytes % 3 % 10/22/18 04:25 Blast Cells % Not Reportable 10/18/18 05:46 Neutrophils # 7.3 k/uL (1.3-7.7) 10/12/18 20:00 Neutrophils # (Manual) 8.90 k/uL (1.3-7.7) H 10/22/18 21:10 Lymphocytes # 1.2 k/uL (1.0-4.8) 10/12/18 20:00 Lymphocytes # (Manual) 0.83 k/uL (1.0-4.8) L 10/22/18 21:10 Monocytes # 0.7 k/uL (0-1.0) 10/12/18 20:00 Monocytes # (Manual) 0.21 k/uL (0-1.0) 10/22/18 21:10 Eosinophils # 0.3 k/uL (0-0.7) 10/12/18 20:00 Eosinophils # (Manual) 0.10 k/uL (0-0.7) 10/22/18 21:10 Basophils # 0.0 k/uL (0-0.2) 10/12/18 20:00 Metamyelocytes # (Man) 0.31 k/uL (0) H 10/22/18 21:10 Myelocytes # (Manual) 0.39 k/uL (0) H 10/22/18 04:25 Blast Cells # (Man) 0.14 k/uL (0) H 10/18/18 05:46 Nucleated RBCs 0 /100 WBC (0-0) 10/22/18 21:10 Manual Slide Review Performed 10/22/18 21:10 Toxic Granulation Present 10/21/18 04:35 Large Platelets Present 10/22/18 04:25 Polychromasia Present 10/22/18 21:10 Hypochromasia Slight 10/23/18 04:30 Poikilocytosis (manual Present 10/22/18 04:25 Basophilic Stippling Present 10/22/18 21:10 Anisocytosis Slight 10/23/18 04:30 Anisocytosis (manual) Present 10/21/18 04:35 Target Cells Present 10/22/18 21:10 PT 9.6 sec (9.0-12.0) 10/13/18 03:15 INR 0.9 (<1.2) 10/13/18 03:15 APTT 63.0 sec (22.0-30.0) H 10/23/18 08:00 Factor V Leiden Interp See Below 10/22/18 15:21 Sample Site [place] 10/23/18 07:16 ABG pH 7.46 (7.35-7.45) H 10/23/18 07:16 ABG pCO2 36 mmHg (35-45) 10/23/18 07:16 ABG pO2 110 mmHg (83-108) H 10/23/18 07:16 ABG HCO3 25 mmol/L (21-25) 10/23/18 07:16 ABG Total CO2 26 mmol/L (19-24) H 10/23/18 07:16 ABG O2 Saturation 98.4 % (94-97) H 10/23/18 07:16 ABG Base Excess 1.1 mmol/L 10/23/18 07:16 Donnell Test no 10/23/18 07:16 FiO2 45 % 10/23/18 07:16 Sodium 129 mmol/L (137-145) L 10/23/18 04:30 Potassium 3.7 mmol/L (3.5-5.1) 10/23/18 04:30 Chloride 95 mmol/L (98-107) L 10/23/18 04:30 Carbon Dioxide 24 mmol/L (22-30) 10/23/18 04:30 Anion Gap 10 mmol/L 10/23/18 04:30 BUN 64 mg/dL (9-20) H 10/23/18 04:30 Creatinine 4.62 mg/dL (0.66-1.25) H 10/23/18 04:30 Est GFR (CKD-EPI)AfAm 15 (>60 ml/min/1.73 sqM) 10/23/18 04:30 Est GFR (CKD-EPI)NonAf 13 (>60 ml/min/1.73 sqM) 10/23/18 04:30 Glucose 93 mg/dL (74-99) 10/23/18 04:30 POC Glucose (mg/dL) 103 mg/dL (75-99) H 10/15/18 18:14 POC Glu [employer] ID Jada Ferrara 10/15/18 18:14 Calcium 7.8 mg/dL (8.4-10.2) L 10/23/18 04:30 Ionized Calcium Deandre 4.5 mg/dL (4.5-5.3) 10/19/18 05:20 Phosphorus 5.2 mg/dL (2.5-4.5) H 10/23/18 04:30 Magnesium 1.9 mg/dL (1.6-2.3) 10/23/18 04:30 Iron 23 ug/dL (65-175) L 10/21/18 04:35 TIBC 223 ug/dL (228-460) L 10/21/18 04:35 Iron Saturation 10.31 (15.00-50.00) L 10/21/18 04:35 Ferritin 2665.2 ng/mL (22.0-322.0) H 10/21/18 04:35 Total Bilirubin 1.8 mg/dL (0.2-1.3) H 10/18/18 05:46 AST 700 U/L (17-59) H 10/18/18 05:46 ALT 175 U/L (21-72) H 10/18/18 05:46 Alkaline Phosphatase 94 U/L (38-126) 10/18/18 05:46 Total Protein 4.6 g/dL (6.3-8.2) L 10/18/18 05:46 Albumin 2.2 g/dL (3.5-5.0) L 10/19/18 05:20 Procalcitonin 17.05 ng/mL (0.02-0.09) H 10/18/18 05:46 Urine Color Yellow 10/12/18 02:10 Urine Appearance Clear (Clear) 10/12/18 02:10 Urine pH 5.5 (5.0-8.0) 10/12/18 02:10 Ur Specific Matthews 1.020 (1.001-1.035) 10/12/18 02:10 Urine Protein Trace (Negative) H 10/12/18 02:10 Urine Glucose (UA) Negative (Negative) 10/12/18 02:10 Urine Ketones Negative (Negative) 10/12/18 02:10 Urine Blood Moderate (Negative) H 10/12/18 02:10 Urine Nitrite Negative (Negative) 10/12/18 02:10 Urine Bilirubin Negative (Negative) 10/12/18 02:10 Urine Urobilinogen <2.0 mg/dL (<2.0) 10/12/18 02:10 Ur Leukocyte Esterase Negative (Negative) 10/12/18 02:10 Urine WBC 4 /hpf (0-5) 10/12/18 02:10 Ur Squamous Epith Cells <1 /hpf (0-4) 10/12/18 02:10 Hyaline Casts 75 /lpf (0-2) H 10/12/18 02:10 Granular Casts 1 /lpf (0) 10/12/18 02:10 Random Vancomycin 26.5 ug/mL 10/23/18 04:30 Anti-Cardiolipin IgG Ab <1.6 U/mL 10/22/18 15:21 Cardiolipin IgG Interp NEGATIVE (NEGATIVE) 10/22/18 15:21 Anti-Cardiolipin IgA Ab 2.9 U/mL 10/22/18 15:21 Cardiolipin IgA Interp NEGATIVE (NEGATIVE) 10/22/18 15:21 Anti-Cardiolipin IgM Ab 1.2 U/mL 10/22/18 15:21 Cardiolipin IgM Interp NEGATIVE (NEGATIVE) 10/22/18 15:21 Hep Bs Antigen Non-Reactive (Non-Reactive) 10/15/18 11:45 Hep Bs Antibody Non-Reactive (Non-Reactive) 10/15/18 11:45 Hep Bs Antibody, Quant 3.5 mIU/mL 10/15/18 11:45 Hep B Core Total Ab Non-Reactive (Non-Reactive) 10/15/18 11:45 Miscellaneous Test aPTT To RDH 10/18/18 05:46 Misc Test Result See Comment 10/18/18 05:46 Blood Type A Positive 10/11/18 11:56 Blood Type Confirm A Positive 10/07/18 10:15 Blood Type Recheck No 10/11/18 11:56 Antibody Screen NEGATIVE 10/11/18 11:56 Crossmatch See Detail 10/11/18 11:56 Spec Expiration Date 10/14/2018 - 47310/11/18 11:56 Microbiology 10/21/18 15:31 Leg - Left Anaerobic Culture - Preliminary 10/23/18 15:12 Catheter Tip Catheter Tip Culture - Preliminary 10/22/18 20:40 Blood Blood Culture Gram Stain - Final 10/22/18 20:40 Blood Blood Culture - Final Coagulase Negative Staph 10/21/18 15:31 Leg - Left Gram Stain - Final 10/21/18 15:31 Leg - Left Wound Culture - Final 10/21/18 15:31 Leg - Left Gram Stain - Final 10/21/18 15:31 Leg - Left Wound Culture - Final 10/21/18 23:49 Blood Blood Culture - Preliminary No Growth after 24 hours 10/21/18 23:37 Blood Blood Culture - Preliminary 10/16/18 10:40 Blood Blood Culture - Final No Growth after 144 hours 10/16/18 10:10 Blood Blood Culture - Final No Growth after 144 hours 10/21/18 15:31 Leg - Left Anaerobic Culture - Preliminary 10/16/18 15:20 Sputum Gram Stain - Final 10/16/18 15:20 Sputum Sputum Culture - Final 10/12/18 09:30 Sputum Gram Stain - Final 10/12/18 09:30 Sputum Sputum Culture - Final Moraxella(branhamella) catarra Haemophilus influenzae Assessment and Plan (1) Atherosclerosis of [place] artery of both lower extremities with intermittent claudication Current Visit: Yes Status: Acute Code(s): I70.213 - ATHSCL [place] ARTERIES OF EXTRM W INTRMT TATYANA, BI LEGS SNOMED Code(s): 793057030505468 (2) Respiratory failure Current Visit: Yes Status: Acute Code(s): J96.90 - RESPIRATORY FAILURE, UNSP, UNSP W HYPOXIA OR HYPERCAPNIA SNOMED Code(s): 794606502 (3) Pressure ulcer of buttock Narrative/Plan: 53-year-old male with a long-standing history of tobacco use with underlying lung disease as well as severe peripheral vascular disease with ongoing symptomatology worsening over the last greater than 1 year. At the time presentation occurs the patient is miserable with his claudication from his severe peripheral vascular disease. He was evaluated and because of the disease state was taken the operating room and a or aorto bifemoral graft was placed. The patient has had great difficulties that included occlusion of the graft in further surgeries that included the thrombectomy of the aorta graft the right femoral component in the left femoral component. By the time the left femoral component occluded there is evidence of severe swelling to the calf and fasciotomies were performed for limb salvage. The patient remains with respiratory failure intubated sedated and mechanically ventilated but not in vasopressor therapy. He developed acute renal failure as noted dialysis dependent. The patient has developed some fever and follow-up cultures have been requested. To date only positive cultures or Moraxella and Haemophilus and de-escalation to Rocephin will occur. However given the multiple ulcerations vancomycin is added with pharmacy dosing given his hemodialysis dependence at this time. He has severe leukocytosis it is multifactorial including the multiple underlying pressure ulceration. The patient does have cardiac dysrhythmia and is on amiodarone. The patient is in an ICU bed for appropriate offloading heels are being also purposely offloaded. Receiving nutrition via TPN. 10/22/2018 patient is now a tracheostomy applied and dialysis catheter for ongoing hemodialysis. He magnetically stable and comfortable. Antibiotic therapy with Rocephin and vancomycin currently be utilized and multiple cultures obtained and are being monitored. Oncology consult today 10/23/2018 the patient is ventilating well via the tracheostomy. Tolerating current antibiotic therapy with Rocephin and vancomycin at this time. There is the positive blood culture with coagulase-negative staph one prior cultures also showing gram-positive cocci but is yet to be identified. At this time is to follow blood cultures remained negative will have no significant concerns. However if we have further positive blood cultures will then be concern regarding the newly placed hemodialysis catheter. As of now he is training to improvement and hopefully will have some improvement of his mental status. With stimulation he does appear to gaze to the observer and attempts to smile. Current Visit: Yes Status: Acute Code(s): L89.309 - PRESSURE ULCER OF UNSPECIFIED BUTTOCK, UNSPECIFIED STAGE SNOMED Code(s): 423398252 (4) Pressure injury of deep tissue of left heel Current Visit: Yes Status: Acute Code(s): L89.629 - PRESSURE ULCER OF LEFT HEEL, UNSPECIFIED STAGE SNOMED Code(s): 294705749 (5) Pressure injury of deep tissue of right heel Current Visit: Yes Status: Acute Code(s): L89.619 - PRESSURE ULCER OF RIGHT HEEL, UNSPECIFIED STAGE SNOMED Code(s): 192712735
[2018-10-24] MEDS: PROPOFOL 1,000 MG in EMPTY BAG 1 BAG IV SCH ×5 (01:30→18:03)
[2018-10-24] MEDS: HEPARIN SOD,PORK IN 0.45% NACL 25,000 UNIT in 0.45% NACL 1 250ML.BAG IV SCH ×2 (01:44→23:08)
[2018-10-24 05:30] LABS: Anisocytosis Slight; HCT 21.5 % (39.0-53.0); HGB 7.1 gm/dL (13.0-17.5); Hypochromasia Slight; MCH 29.1 pg (25.0-35.0); MCHC 33.2 g/dL (31.0-37.0); MCV 87.9 fL (80.0-100.0); Mean Platelet Volume 8.7; Platelet Count 180 k/uL (150-450); RBC 2.45 m/uL (4.30-5.90); RDW 17.2 % (11.5-15.5); WBC 10.1 k/uL (3.8-10.6)
[2018-10-24 06:10] LABS: Calcium 7.9 mg/dL (8.4-10.2); Magnesium 1.9 mg/dL (1.6-2.3); Phosphorus 5.7 mg/dL (2.5-4.5); Potassium 3.8 mmol/L (3.5-5.1)
[2018-10-24 06:15] LABS: Vancomycin,Random 19.3 ug/mL
[2018-10-24] MEDS: IPRATROPIUM-ALBUTEROL 3 ML NEB INHALATION SCH ×4 (07:15→19:46)
[2018-10-24] MEDS: CHLORHEXIDINE GLUCONATE 15 ML CUP MUCOUS MEM SCH ×2 (08:35→20:45)
[2018-10-24] MEDS: ASPIRIN 81 MG PO SCH (08:35)
[2018-10-24] MEDS: FUROSEMIDE 10 MG/ML 10 ML VIAL IV SCH ×2 (08:35→21:42)
[2018-10-24] MEDS: PANTOPRAZOLE 40 MG/10 ML VIAL IVP SCH (08:35)
[2018-10-24] MEDS: COLLAGENASE 250 UNIT/GM OINTMENT 30 GM TUBE TOPICAL SCH (08:35)
[2018-10-24] MEDS: BISACODYL 10 MG SUPP RECTAL SCH (08:35)
[2018-10-24] MEDS: AMIODARONE 200 MG TAB PO SCH ×2 (08:35→21:41)
[2018-10-24] MEDS: GABAPENTIN 300 MG CAP PO SCH ×3 (08:35→21:42)
[2018-10-24] MEDS: FENOFIBRATE 160 MG TAB PO SCH (08:36)
[2018-10-24] MEDS ORDERED: VANCOMYCIN 1,750 MG in SODIUM CHLORIDE 0.9% 500 ML 500 ML IVPB ONE ×2 (09:30→17:00)
--- NOTE | 2018-10-24 09:41 | P.PN ---
Subjective Patient is seen in follow-up for acute kidney injury, currently hemodialysis dependent. Patient underwent aortobifemoral bypass graft on 10/07/2018 with right common femoral thromboendarterectomy. He's been off vasopressors since October 20. Urine output improved with IV Lasix - about 900 mL in the last 24 hours. Patient underwent tracheostomy on October 22. He also had a tunnel subclavian catheter placed for dialysis. Remains edematous. Scheduled for PEG tube placement today. Vital signs are stable. General: The patient appeared well nourished and normally developed. Tracheostomy noted. HEENT: Head exam is unremarkable. Neck is without jugular venous distension. LUNGS: Breath sounds decreased. HEART: Rate and Rhythm are regular. First and second heart sounds normal. No murmurs, rubs or gallops. ABDOMEN: Bowel sounds present. Soft. EXTREMITITES: 2+ edema. No obvious drainage noted. Scrotal edema noted. Objective - Vital Signs Vital signs: Vital Signs Temp 98.7 F 10/24/18 09:19 Pulse 99 10/24/18 09:19 Resp 27 H 10/24/18 09:19 BP 111/61 10/24/18 09:19 Pulse Ox 100 10/24/18 09:00 Intake & Output 10/23/18 10/24/18 10/24/18 18:59 06:59 18:59 Intake Total 9427.976 6610.922 63.763 Output Total 5360 332 4755 Balance -3653.164 1126.922 -4691.237 Weight 118.6 kg 115.2 kg Intake: IV 746 1033 20 Normal Saline carrier 110 130 20 PPN 200 900 0 Pressure bag 36 3 TPN 350 cefTRIAXone 2 gm In 50 Sodium Chloride 0.9% 50 ml @ 100 mls/hr IVPB Q24HR [facility] Rx#:[id number] Intake, IV Titration 960.836 425.922 43.763 Amount ACETAMINOPHEN IV (For NPO 100 ) 1,000 mg In Empty Bag 1 bag @ 400 mls/hr IVPB ONCE [facility] Rx#:[id number] Heparin Sod,Pork in 0.45% 250 110.07 NaCl 25,000 unit In 0.45 % NaCl 1 250ml.bag @ 18 UNITS/KG/HR 20.682 mls/hr IV .Q12H6M [facility] Rx#: [id number] Mvi, Adult No.4 with Vit 563.333 K 10 ml Trace (Conc-1Ml/ Dose) 1 ml Sodium Acetate 35 meq Calcium Gluconate 2 gm Potassium Chloride 20 meq Sodium Chloride 2. 5MEQ/ml Vial 20 meq In Amino Acid 5%-D15w 1,000 ml @ 50 mls/hr IV . [id number] [facility] Rx#:[id number] Propofol 1,000 mg In 147.503 215.852 43.763 Empty Bag 1 bag @ Titrate IV .Q0M [facility] Rx#: [id number] Output: Gastric Drainage 800 750 Urine 560 332 5 Hemodialysis 4000 4000 Other: Voiding Method Indwelling Catheter Indwelling Catheter Indwelling Catheter ABP, PAP, CO, CI - Last Documented Arterial Blood Pressure 145/62 - Labs CBC & Chem 7: 10/24/18 04:54 10/24/18 04:54 Labs: Abnormal Lab Results - Last 24 Hours (Table) 10/24/18 10/24/18 10/24/18 Range/Units 04:54 04:54 04:54 RBC 2.45 L (4.30-5.90) m/uL Hgb 7.1 L (13.0-17.5) gm/dL Hct 21.5 L (39.0-53.0) % RDW 17.2 H (11.5-15.5) % APTT 78.5 H (22.0-30.0) sec Sodium 131 L (137-145) mmol/L Chloride 96 L (98-107) mmol/L BUN 61 H (9-20) mg/dL Creatinine 4.43 H (0.66-1.25) mg/dL Calcium 7.9 L (8.4-10.2) mg/dL Phosphorus 5.7 H (2.5-4.5) mg/dL Microbiology - Last 24 Hours (Table) 10/21/18 23:37 Blood Culture - Final Blood 10/21/18 23:49 Blood Culture - Preliminary Blood No Growth after 48 hours 10/22/18 23:24 Blood Culture - Preliminary Blood No Growth after 24 hours 10/22/18 22:50 Blood Culture - Preliminary Blood No Growth after 24 hours 10/21/18 15:31 Anaerobic Culture - Preliminary Leg - Left 10/23/18 15:12 Catheter Tip Culture - Preliminary Catheter Tip 10/22/18 20:40 Blood Culture Gram Stain - Final Blood Blood Culture - Final Coagulase Negative Staph 10/21/18 15:31 Gram Stain - Final Leg - Left Wound Culture - Final 10/21/18 15:31 Gram Stain - Final Leg - Left Wound Culture - Final Assessment and Plan Plan: Assessment: 1. Acute kidney injury secondary to ATN secondary to hypotension and contrast- induced nephropathy. Currently hemodialysis dependent. No evidence of renal recovery at this time. Patient's creatinine in August 2018 was in the range of 1.3-1.7. 2. 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 Vascular surgery following. 3. Volume overload. 4. A. fib with RVR. Now rate controlled. 5. Chronic kidney disease stage III secondary to nephrosclerosis. Baseline creatinine in the range of 1.3-1.7. 6. Anemia of chronic illness. High ferritin level noted. Maintained on Aranesp. 7. Hypervolemic hyponatremia. 8. Ileus. Maintained on TPN. 9. Hyperphosphatemia secondary to acute kidney injury. Plan: Currently seen while undergoing hemodialysis. Maintain daily dialysis for now. Will try for 3-4 L ultrafiltration. Maintain IV Lasix 80 mg twice daily. Continue to monitor renal function and urine output. Monitor vancomycin levels. Target level below 20. Add PhosLo bid.
[2018-10-24] MEDS: CALCIUM ACETATE 667 MG CAP PO SCH ×2 (09:56→17:48)
--- NOTE | 2018-10-24 11:06 | XR ---
EXAMINATION TYPE: XR chest 1V portable DATE OF EXAM: 10/24/2018 COMPARISON: Prior chest x-ray 10/23/2018 HISTORY: Abnormal chest x-ray TECHNIQUE: Single frontal view of the chest is obtained. FINDINGS: Right jugular central venous catheter remains in place, left jugular central venous cathet er has been removed. Orogastric tube and tracheostomy tube are overlying appropriate positions. Suspe ct persistent retrocardiac density. No pneumothorax. Heart size is stable. IMPRESSION: Possible left lower lobe atelectasis versus pneumonia, effusion. Follow-up recommended.
--- NOTE | 2018-10-24 11:29 | P.PN ---
Subjective Progress Note Date: 10/24/18 Principal diagnosis: acute ventilator-dependent hypoxic respiratory failure secondary to aspiration pneumonia and ARDS. On 10/20/2018 of seeing this patient for a follow-up. The patient is sedated on 30 mics of propofol. He was able to come off sedation adequately yesterday as the patient became restless and they suggested a mechanical ventilator. This morning it is back on sedation. He was on a PEEP of 11 with an FiO2 of 40% and a rate of 400 and respiratory rate of 32. I realize that the patient ever pressure lower and he was sucking way higher tidal volumes as with provided to him through the mechanical ventilator. Based on that, switch this patient to a VC plus mode and increase the tidal volume to 500 and dropped a respiratory rate up to 24 and dropped PEEP down to 9 keeping the FiO2 at 40% and the chest x-ray shows improvement of breath and pulmonary infiltrates. The patient's airway pressure steadily on the decline. Lower lobe consolidation improving and the patient is currently on IV meropenem. He is on TPN for nutritional support. Abdomen is slightly distended and hypoactive bowel sounds. Orogastric tube is in place. Surgical abdominal wound site is dry clean and intact. The groin wounds are clean and intact. Pulses in the lower extremities are obtained and measured by Doppler. He has undergone 4 sessions of hemodialysis and the lacer ation was done yesterday without any complication with significant ultrafiltration. He is afebrile. He is hemodynamically stable on no pressors and both of vasopressin and levo fed has been discontinued. I am thinking and the patient will be a difficult wean and is reasonable to consider a PEG and trach special with above-mentioned medical problems and comorbidities encountered over the past 1 week. His white cell count is 17. Hemoglobin stable at 8.0. The patient remains on IV heparin. PH is 7.49 with a pCO2 of 38 and pO2 of 103. There is scrotal edema which is also improving. Reevaluated today on 10/21/2018, patient remains on mechanical ventilation, sedated, presently on assist control rate of 22, FiO2 of 45%, tidal volume of 500, and PEEP of 6. patient is actually on volume control plus mode of mechanical ventilation. Hence his tidal volume varies from breast of breath. I was able to drop the PEEP down to 6 today. Patient seems to be ventilating quite well. He is hemodynamically stable today, off all pressors, remains on antibiotics for left lower lobe consolidation and fever, he is on Merrem. Remains on TPN, and he may undergo tracheostomy and PEG tube placement today by Dr. rodriguez. However he is yet to have his dialysis this morning.WBC count is 15.8 hemoglobin is 7.7. ABG this morning showed a pO2 of 122 pCO2 of 37 pH of 7.46.worsening renal profile is noted today, BUN is 66 creatinine is 5.03, patient remains oliguric, roughly about 30 mL of urine per shift. Patient was reevaluated today on , remains on mechanical ventilation. Patient was reevaluated today on 10/22/2018, remains on mechanical ventilation, he is now on assist control rate of 22, tidal volume of 500/volume control plus, FiO2 45%, PEEP of 6. Remains on propofol at 20 mcg/kg/m, patient is arousable, seems to follow simple instructions, presently on dialysis. Patient is van eduled to undergo tracheostomy and possible PEG tube placement today. Chest x- ray showed diffuse interstitial pattern with bilateral small effusions greater on the left. The findings are suggestive of resolving ARDS, doubt cardiogenic pulmonary edema. Although the possibility of interstitial edema is not entirely ruled out considering the patient is oliguric, and he is requiring daily hemodialysis at this point. Labs today showed hemoglobin of 7.4 WBC count of 12.9. ABG showed a pO2 of 96 pCO2 of 36 pH of 7.48 Reevaluated today on 10/23/2018, patient remains on mechanical ventilation, und erwent tracheostomy today, but no PEG tube was placed. Patient remains on same ventilator settings, assist control rate of 22, tidal volume 500+ FiO2 45% PEEP 6. Patient had an uneventful tracheostomy however there is evidence of some leak and volume loss around the tracheostomy site. And what is more concerning today is the fact that the patient had multiple positive blood cultures for what seems to be staph epidermidis, and I believe the patient may have catheter related sepsis from his catheters including his central line and arterial line. Most likely it is his left subclavian central line which would have to be removed today, and the tip will be cultured. I have instructed the nurses to call for a midline placement in the meantime the patient remains on antibiotics in the form of vancomycin. After 24 or 48 hours, decline may have to be placed. Patient remains sedated, he is on propofol, and I plan to taper the propofol down, assess his mental status. ABG today showed a pO2 of 110 pCO2 of 36 pH of 7.46 electrolytes were noted renal profile remains abnormal sodium is 129. Patient remains on dialysis and he is scheduled to undergo dialysis again today. Chest x-ray showed mild interstitial edema. And bibasilar atelectasis. Reevaluated today on 10/24/2018, patient remains on mechanical ventilation, he underwent a weaning trial with a pressure support of 8 and CPAP yesterday, tolerated at least a good 6 hours of weaning. However he was noted after 6 hours to become more agitated, restless, and tachycardic as well as tachypneic. Hence patient is back on assist control mode of mechanical ventilation, and patient is being considered for possible PEG tube placement today. His central line was discontinued yesterday and cultured, patient is now on vancomycin and Rocephin, evaluated by infectious disease again, and agreed with the plan to discontinue central line, patient is now being managed mostly with peripheral lines, and he will be on peripheral TPN. I plan to continue weaning trial today with a pressure support and CPAP, however if the patient is scheduled for a PEG tube placement, we will delay until the PEG tube is placed. Blood cultures from yesterday are pending. The tip of the catheter culture is pending. Patient will eventually need a PICC line placement hopefully in the next 24 hours. That means he would have received a good course of IV antibiotics for staph epidermidis catheter sepsis 4-48 hours before we proceed with another central line placement/PICC line. Patient is being dialyzed today, he is hemodynamically stable, not requiring any pressors. His ventilator settings are tidal volume of 500 assist control rate of 20 to FiO2 of 45% and PEEP is 6. In spite of being on a low dose of propofol, patient seems to be comprehending, and follows simple instructions. Objective - Vital Signs Vital signs: Vital Signs Temp 98.7 F 10/24/18 09:19 Pulse 98 10/24/18 11:00 Resp 22 10/24/18 11:00 BP 105/64 10/24/18 11:00 Pulse Ox 98 10/24/18 11:00 Intake & Output 10/23/18 10/24/18 10/24/18 18:59 06:59 18:59 Intake Total 4276.436 5543.922 133.763 Output Total 5360 332 4755 Balance -3653.164 1126.922 -4621.237 Weight 118.6 kg 115.2 kg Intake: IV 746 1033 90 Normal Saline carrier 110 130 40 PPN 200 900 0 Pressure bag 36 3 TPN 350 cefTRIAXone 2 gm In 50 50 Sodium Chloride 0.9% 50 ml @ 100 mls/hr IVPB Q24HR [facility] Rx#:[id number] Intake, IV Titration 960.836 425.922 43.763 Amount ACETAMINOPHEN IV (For NPO 100 ) 1,000 mg In Empty Bag 1 bag @ 400 mls/hr IVPB ONCE [facility] Rx#:[id number] Heparin Sod,Pork in 0.45% 250 110.07 NaCl 25,000 unit In 0.45 % NaCl 1 250ml.bag @ 18 UNITS/KG/HR 20.682 mls/hr IV .Q12H6M [facility] Rx#: [id number] Mvi, Adult No.4 with Vit 563.333 K 10 ml Trace (Conc-1Ml/ Dose) 1 ml Sodium Acetate 35 meq Calcium Gluconate 2 gm Potassium Chloride 20 meq Sodium Chloride 2. 5MEQ/ml Vial 20 meq In Amino Acid 5%-D15w 1,000 ml @ 50 mls/hr IV . [id number] [facility] Rx#:[id number] Propofol 1,000 mg In 147.503 215.852 43.763 Empty Bag 1 bag @ Titrate IV .Q0M [facility] Rx#: [id number] Output: Gastric Drainage 800 750 Urine 560 332 5 Hemodialysis 4000 4000 Other: Voiding Method Indwelling Catheter Indwelling Catheter Indwelling Catheter ABP, PAP, CO, CI - Last Documented Arterial Blood Pressure 145/62 - Exam GENERAL EXAM: revealed a 53-year-old white male on mechanical ventilation, sedated, in no distress. HEAD: Normocephalic/atraumatic. EENT: PERRLA, EOMI, tracheostomy seems to be intact no neck masses. Left powell bclavian central line has been removed yesterday because of concern about central line sepsis. CHEST: No chest wall deformity. Symmetrical expansion. LUNGS:minimal fine crackles at the bases. No rhonchi and no wheezes. CVS: normal S1 and S2, no gallops. No murmur. ABDOMEN:soft nontender no megaly. Diminished bowel sounds. Midabdominal and Bilateral groin incisions, left groin incision with wound VAC in place. Significant scrotal swelling is noted EXTREMITIES: The upper extremity no evidence of some generalized edema and evidence of scattered areas of ecchymosis The lower extremities have the extensive bilateral lower extremity edema. Presents of the deep tissue injury of both heels. There is evidence of the eschars present on both buttocks. The left leg the patient is evidence of the 2 fasciotomy wounds from 10/13/2018. evidence of some dryness of the base there is no yung ischemia being seen to the base of the fasciotomy with there is still some exposed muscle. There is some mildly degenerating fat and with manipulation some serous tissue edema fluid does come through the open areas. MUSCULOSKELETAL: Patient follows simple instructions, move upper and lower extremities upon command. SKIN: As noted under extremities. CENTRAL NERVOUS SYSTEM: Arousable, following simple instructions. - Labs CBC & Chem 7: 10/24/18 04:54 10/24/18 04:54 Labs: Abnormal Lab Results - Last 24 Hours (Table) 10/24/18 10/24/18 10/24/18 Range/Units 04:54 04:54 04:54 RBC 2.45 L (4.30-5.90) m/uL Hgb 7.1 L (13.0-17.5) gm/dL Hct 21.5 L (39.0-53.0) % RDW 17.2 H (11.5-15.5) % APTT 78.5 H (22.0-30.0) sec Sodium 131 L (137-145) mmol/L Chloride 96 L (98-107) mmol/L BUN 61 H (9-20) mg/dL Creatinine 4.43 H (0.66-1.25) mg/dL Calcium 7.9 L (8.4-10.2) mg/dL Phosphorus 5.7 H (2.5-4.5) mg/dL Microbiology - Last 24 Hours (Table) 10/21/18 23:37 Blood Culture - Final Blood 10/21/18 23:49 Blood Culture - Preliminary Blood No Growth after 48 hours 10/22/18 23:24 Blood Culture - Preliminary Blood No Growth after 24 hours 10/22/18 22:50 Blood Culture - Preliminary Blood No Growth after 24 hours 10/21/18 15:31 Anaerobic Culture - Preliminary Leg - Left 10/23/18 15:12 Catheter Tip Culture - Preliminary Catheter Tip 10/22/18 20:40 Blood Culture Gram Stain - Final Blood Blood Culture - Final Coagulase Negative Staph 10/21/18 15:31 Gram Stain - Final Leg - Left Wound Culture - Final 10/21/18 15:31 Gram Stain - Final Leg - Left Wound Culture - Final Assessment and Plan Assessment: impression: 1 acute ventilator-dependent hypoxic respiratory failure secondary to pneumonia and ARDS. most likely secondary to Moraxella catarrhalis and Haemophilus influenza as noted on the positive sputum cultures.patient is on Rocephin and vancomycin as per infectious disease on the case 2 peripheral vessel occlusive disease, status post aortobifemoral bypass surgery on 11/03/2018, with complicated course complicated by pneumonia and ARDS acute kidney injury 3 acute ischemic limbs postop requiring emergent thrombectomy on the right on 10/11/2018 and on the left on 10/23/2018. 4 acute septic shock is likely based on the fact that the patient required significant MR pressors at one point. However presently resolved. 5 acute kidney injury/acute tubular necrosis secondary to sepsis. Patient remains on hemodialysis. Has been receiving dialysis on a daily basis. 6 aortic dissection as noted on CT of the abdomen 7 chronic back pain 8 obesity/BMI of 39.3 9 deep tissue injury to his left heel 10 paroxysmal atrial fibrillation 11 status post tracheostomy and dialysis catheter placement on 10/22/2018. 12 strongly suspect catheter related sepsis from central line patient had multiple positive blood culture for staph epidermidis. Hence the central line would have to be removed, and it would be cultured. In the meantime continue vancomycin. Continue Rocephin per Infectious disease is following. recommendation: Continue ventilatory support, nutritional support, presently on peripheral TPN. antibiotics, hemodialysis, , quite concerned about central line sepsis. Central line was removed, tip cultures are pending. Patient will remain on vancomycin, will continue daily trial of weaning with a pressure support and CPAP, however my understanding and the patient may go for a PEG tube placement today, and this would be done by Dr. rodriguez. Patient did have a bowel movement yesterday, no bowel movements today yet. Patient remains critically ill, overall prognosis remains extremely poor and guarded, multiple medical issues are of concern as noted above, we'll continue to follow. Critical care time is 35 minutes Time with Patient: Greater than 30
[2018-10-24] MEDS ORDERED: fentaNYL (PF) 50 MCG/ML 2 ML AMP ONE (14:19)
[2018-10-24] MEDS ORDERED: ROCURONIUM BROMIDE 10 MG/ML 10 ML VIAL IV ONE (14:19)
[2018-10-24] MEDS ORDERED: PROPOFOL 10 MG/ML 20 ML VIAL IV ONE (14:19)
[2018-10-24] MEDS ORDERED: ePHEDrine SULFATE/0.9% NACL/PF 50 MG/5 ML SYRINGE IV ONE (14:19)
[2018-10-24] MEDS ORDERED: MIDAZOLAM 2 MG/2 ML VIAL ONE (14:19)
[2018-10-24] MEDS ORDERED: PHENYLEPHRINE-0.9% NACL SYG 1 MG/10 ML SYRINGE ONE (14:19)
--- NOTE | 2018-10-24 14:36 | P.PN ---
Progress Note - Text Progress Note Date: 10/24/18 Patient's heparin was held around 11:30 this morning as preparation for PEG tube placement. A fairly just prior to that the patient was noted to have some blood around the drain sponge underneath the tracheostomy collar. Per the nursing staff and respiratory therapy it seems like there is an oozing occurring in the left lateral aspect of the incision site. This has slowed down somewhat with the heparin drip off. Despite that the patient will require re-anticoagulation later today. We are planning PEG tube placement today. Will also evaluate the patient's tracheostomy site with control of bleeding in the operating room. May require tracheostomy change.
[2018-10-24] MEDS: NOREPINEPHRINE 32 MG in SODIUM CHLORIDE 0.9% 218 ML IV SCH (15:48)
--- NOTE | 2018-10-24 16:24 | P.OP ---
Date of Procedure: 10/24/18 Procedure(s) Performed: PREOPERATIVE DIAGNOSIS: Tracheostomy bleeding, malnutrition POSTOPERATIVE DIAGNOSIS: Same PROCEDURE: Evaluation tracheostomy with control bleeding, EGD with PEG tube placement SURGEON: Sadi EBL: Minimal ANESTHESIA: General COMPLICATIONS: None OPERATIVE PROCEDURE: Patient was placed in the operative table in the supine position. A shoulder roll was utilized. The previous placed tracheostomy catheter was prepped to the best of our ability. The area was draped off. The previous 0 silk ties were removed. The 3-0 Vicryl ties were then removed. The patient's wound bed was evaluated. The patient was noted to have a [id number] amount of adherent clot on the left side of the tracheostomy catheter with minimal clot seen on the right side. Further nursing staff preoperatively it appeared the bleeding was coming from the left side. I was able to identify 2-3 small areas of oozing along the skin edges the strap musculature, and the divided thyroid. No large areas of bleeding were seen. These were controlled quite easily using electrocautery. The right side was evaluated as well and no bleeding was seen. Surgicel snow was used at the wound bed. The skin was closed once again using 3-0 Vicryl ties. The trach itself was sutured to the skin using 2 separate 0 silk sutures. Tracheostomy ties were utilized. A drain sponge was applied. Again during the procedure no significant active bleeding was identified. The patient was kept in the supine position on the operating room table. The Olympus gastroscope was inserted into the oropharynx and passed under direct visualization to the region of the duodenum. No obstruction was seen. The pylorus was widely patent. The stomach was carefully inspected. The stomach was fully insufflated with air. The abdominal wall was inspected. The light was seen shining through the abdominal wall in the left upper quadrant. This site was chosen for PEG tube placement. The area was prepped in the usual sterile fashion. A small vertical incision was made using the scalpel. The Seldinger needle was advanced into the lumen of the stomach the wire was advanced. The wire was grasped with an endoscopic snare. The wire was pulled through the oropharynx. The catheter was then threaded over the guidewire and the guidewire and catheter were pulled anteriorly until the hub of the PEG tube catheter was seated against the anterior wall the stomach. The circular bolster was applied and tightened down up to 4 cm. The endoscope was then readvanced into the stomach. There was no evidence of any bleeding and there was appropriate tightness on the bolster. The catheter was cut appropriately. The dual port feeding adapter was applied. DISPOSITION: Stable to ICU
--- NOTE | 2018-10-24 16:36 | P.PN ---
Subjective Progress Note Date: 10/24/18 Principal diagnosis: Aortoiliac occlusive disease, renal failure, acute respiratory ventilator dependent failure, malnutrition Patient is evaluated today. He had just returned from the operating room where the patient underwent placement of PEG tube and exploration of tracheostomy site. Patient remained sedated. His abdomen is soft and benign. His abdominal and inguinal wounds are clean, dry and healing well. Good bowel sounds are noted. Extremities remain pink and adequately perfused. Objective - Vital Signs Vital signs: Vital Signs Temp 99.9 F H 10/24/18 12:00 Pulse 100 10/24/18 14:00 Resp 22 10/24/18 14:00 BP 109/74 10/24/18 14:30 Pulse Ox 98 10/24/18 14:00 Intake & Output 10/23/18 10/24/18 10/24/18 18:59 06:59 18:59 Intake Total 2995.462 6691.422 666.271 Output Total 5360 332 4790 Balance -3653.164 2155.422 -4123.729 Weight 118.6 kg 115.2 kg Intake: IV 746 1033 530 Normal Saline carrier 110 130 80 PPN 200 900 400 Pressure bag 36 3 TPN 350 cefTRIAXone 2 gm In 50 50 Sodium Chloride 0.9% 50 ml @ 100 mls/hr IVPB Q24HR [facility] Rx#:[id number] Intake, IV Titration 084.362 2100.422 136.271 Amount ACETAMINOPHEN IV (For NPO 100 ) 1,000 mg In Empty Bag 1 bag @ 400 mls/hr IVPB ONCE [facility] Rx#:[id number] Heparin Sod,Pork in 0.45% 250 110.07 NaCl 25,000 unit In 0.45 % NaCl 1 250ml.bag @ 18 UNITS/KG/HR 20.682 mls/hr IV .Q12H6M [facility] Rx#: [id number] Mvi, Adult No.4 with Vit 563.333 K 10 ml Trace (Conc-1Ml/ Dose) 1 ml Sodium Acetate 35 meq Calcium Gluconate 2 gm Potassium Chloride 20 meq Sodium Chloride 2. 5MEQ/ml Vial 20 meq In Amino Acid 5%-D15w 1,000 ml @ 50 mls/hr IV . [id number] [facility] Rx#:[id number] Propofol 1,000 mg In 147.503 215.852 136.271 Empty Bag 1 bag @ Titrate IV .Q0M [facility] Rx#: [id number] Sodium Acetate 15 meq 1028.5 Calcium Gluconate 1 gm Potassium Chloride 10 meq Sodium Chloride 2.5MEQ/ ml Vial 15 meq In Amino Acid 4.25%-D10w 1,000 ml @ 100 mls/hr IV .BY DURATION [facility] Rx#: [id number] Output: Gastric Drainage 800 750 Urine 560 332 30 Hemodialysis 4000 4000 Estimated Blood Loss 10 Other: Voiding Method Indwelling Catheter Indwelling Catheter Indwelling Catheter ABP, PAP, CO, CI - Last Documented Arterial Blood Pressure 145/62 - Labs CBC & Chem 7: 10/24/18 04:54 10/24/18 04:54 Labs: Abnormal Lab Results - Last 24 Hours (Table) 10/24/18 10/24/18 10/24/18 Range/Units 04:54 04:54 04:54 RBC 2.45 L (4.30-5.90) m/uL Hgb 7.1 L (13.0-17.5) gm/dL Hct 21.5 L (39.0-53.0) % RDW 17.2 H (11.5-15.5) % APTT 78.5 H (22.0-30.0) sec Sodium 131 L (137-145) mmol/L Chloride 96 L (98-107) mmol/L BUN 61 H (9-20) mg/dL Creatinine 4.43 H (0.66-1.25) mg/dL Calcium 7.9 L (8.4-10.2) mg/dL Phosphorus 5.7 H (2.5-4.5) mg/dL Microbiology - Last 24 Hours (Table) 10/23/18 11:15 Blood Culture - Preliminary Blood No Growth after 24 hours 10/23/18 11:20 Blood Culture - Preliminary Blood No Growth after 24 hours 10/21/18 23:37 Blood Culture - Final Blood 10/21/18 23:49 Blood Culture - Preliminary Blood No Growth after 48 hours 10/22/18 23:24 Blood Culture - Preliminary Blood No Growth after 24 hours 10/22/18 22:50 Blood Culture - Preliminary Blood No Growth after 24 hours 10/21/18 15:31 Anaerobic Culture - Preliminary Leg - Left 10/23/18 15:12 Catheter Tip Culture - Preliminary Catheter Tip 10/22/18 20:40 Blood Culture Gram Stain - Final Blood Blood Culture - Final Coagulase Negative Staph 10/21/18 15:31 Gram Stain - Final Leg - Left Wound Culture - Final 10/21/18 15:31 Gram Stain - Final Leg - Left Wound Culture - Final
[2018-10-24 20:48] LABS: Glucose,Whole Blood 117 mg/dL (75-99)
--- NOTE | 2018-10-24 23:32 | P.PN ---
Subjective Progress Note Date: 10/23/18 Principal diagnosis: Acute hypoxic respiratory failure secondary to aspiration pneumonia and ARDS Status post Aorto- femoral bypass surgery Patient is a 53-year-old male who underwent aortofemoral bypass graft on 10/07/2018 the right common femoral thromboendarterectomy. Patient had complicated course with acute hypoxemic respiratory failure, possible aspiration pneumonia and ARDS. Patient also developed acute on chronic kidney disease secondary to ATN and contrast nephropathy currently started on hemodialysis. Plan for trach and PEG tube placement. 10/22/2018 Patient had tracheostomy today. PEG tube cannot be placed due to possible ileus. Patient otherwise arousable and follows simple commands but cannot communicate at this time. Chest x-ray showed diffuse interstitial pattern with bilateral small effusions greater on the left. Findings are suggestive of res olving ARDS. Patient did have hemodialysis today. Patient is oliguric. Laboratory data showed WBC 12.9 and hemoglobin 7.4, BUN 63 and creatinine 4.5oliguric, and he is requiring daily hemodialysis at this point. Labs today showed hemoglobin of 7.4 WBC count of 12.9. ABG showed a pO2 of 96 pCO2 of 36 pH of 7.48 No fever no chills. 10/23/2018 Patient is currently awake alert but could not communicate.Propofol dose is being tapered down.. Patient is status post tracheostomy. Currently remains on ventilator support. Fever no chills. Sodium level is 129. Patient will have hemodialysis today. Chest x-ray findings may be indicated of CHF, volume overload, interstitial edema basilar pneumonia. Blood cultures grew staph aureus. Patient is on vancomycin and ceftriaxone. Pulmonary ID and CT surgery on board. Complete review of systems could not be apparent from the patient. Discussed wi th his family at bedside in detail. Current medications reviewed. Objective - Vital Signs Vital signs: Vital Signs Temp 98.9 F 10/23/18 14:42 Pulse 105 H 10/23/18 14:42 Resp 11 L 10/23/18 14:42 BP 118/55 10/23/18 14:42 Pulse Ox 100 10/23/18 14:30 Intake & Output 10/22/18 10/23/18 10/23/18 18:59 06:59 18:59 Intake Total 2138.749 6751.490 5054.836 Output Total 3090 330 5275 Balance -951.251 995.849 -4070.164 Weight 118.6 kg 118.6 kg Intake: IV 1645 756 494 Normal Saline carrier 70 120 70 Pressure bag 24 36 24 TPN 550 600 350 Vancomycin 2,000 mg In 501 Sodium Chloride 0.9% 500 ml 500 ml @ 167 mls/hr IVPB ONCE ONE Rx#: [id number] cefTRIAXone 2 gm In 100 50 Sodium Chloride 0.9% 50 ml @ 100 mls/hr IVPB Q24HR [facility] Rx#:[id number] Intake, IV Titration 493.749 569.849 710.836 Amount Heparin Sod,Pork in 0.45% 130.151 369.849 NaCl 25,000 unit In 0.45 % NaCl 1 250ml.bag @ 18 UNITS/KG/HR 20.682 mls/hr IV .Q12H6M [facility] Rx#: [id number] Mvi, Adult No.4 with Vit 563.333 K 10 ml Trace (Conc-1Ml/ Dose) 1 ml Sodium Acetate 35 meq Calcium Gluconate 2 gm Potassium Chloride 20 meq Sodium Chloride 2. 5MEQ/ml Vial 20 meq In Amino Acid 5%-D15w 1,000 ml @ 50 mls/hr IV . [id number] [facility] Rx#:[id number] Propofol 1,000 mg In 363.598 200 147.503 Empty Bag 1 bag @ Titrate IV .Q0M [facility] Rx#: [id number] Oral 0 0 Output: Gastric Drainage 800 Urine 85 330 475 Hemodialysis 3000 4000 Estimated Blood Loss 5 Other: Voiding Method Indwelling Catheter Indwelling Catheter Indwelling Catheter ABP, PAP, CO, CI - Last Documented Arterial Blood Pressure 135/62 - Exam PHYSICAL EXAMINATION: Patient is lying in the bed comfortably, no acute distress, awake alert and cannot communicate verbally... HEENT: Normocephalic. Neck is supple. Pupils reactive. Nostrils clear. Oral cavity is moist. Ears reveal no drainage. Neck reveals no JVD, carotid bruits, or thyromegaly. CHEST EXAMINATION: Trachea is central. Tracheostomy tube present. Symmetrical expansion. Bibasilar diminished air entry and crackles positive no wheezing.. CARDIAC: Normal S1, S2 with no gallops. No murmurs ABDOMEN: Soft. Bowel sounds normal. No organomegaly. No abdominal bruits. Extremities: Lateral lower exudate swelling and scrotal edema.. No clubbing or cyanosis Neurologically awake, alert and follows simple commands.. No gross focal deficits noted. Skin: No rash . Multiple ecchymotic patches on the bilateral upper ext remities.. Psychiatric: Coperative. Could not be assessed completely Musculoskeletal: No joint swelling or deformity. - Labs CBC & Chem 7: 10/24/18 04:54 10/24/18 04:54 Labs: Abnormal Lab Results - Last 24 Hours (Table) 10/22/18 10/23/18 10/23/18 Range/Units 21:10 04:30 04:30 RBC 2.50 L 2.46 L (4.30-5.90) m/uL Hgb 7.2 L 7.3 L (13.0-17.5) gm/dL Hct 21.9 L 22.4 L (39.0-53.0) % RDW 17.2 H 17.0 H (11.5-15.5) % Neutrophils # (Manual) 8.90 H (1.3-7.7) k/uL Lymphocytes # (Manual) 0.83 L (1.0-4.8) k/uL Metamyelocytes # (Man) 0.31 H (0) k/uL APTT (22.0-30.0) sec ABG pH (7.35-7.45) ABG pO2 (83-108) mmHg ABG Total CO2 (19-24) mmol/L ABG O2 Saturation (94-97) % Sodium 129 L (137-145) mmol/L Chloride 95 L (98-107) mmol/L BUN 64 H (9-20) mg/dL Creatinine 4.62 H (0.66-1.25) mg/dL Calcium 7.8 L (8.4-10.2) mg/dL Phosphorus 5.2 H (2.5-4.5) mg/dL 10/23/18 10/23/18 Range/Units 07:16 08:00 RBC (4.30-5.90) m/uL Hgb (13.0-17.5) gm/dL Hct (39.0-53.0) % RDW (11.5-15.5) % Neutrophils # (Manual) (1.3-7.7) k/uL Lymphocytes # (Manual) (1.0-4.8) k/uL Metamyelocytes # (Man) (0) k/uL APTT 63.0 H (22.0-30.0) sec ABG pH 7.46 H (7.35-7.45) ABG pO2 110 H (83-108) mmHg ABG Total CO2 26 H (19-24) mmol/L ABG O2 Saturation 98.4 H (94-97) % Sodium (137-145) mmol/L Chloride (98-107) mmol/L BUN (9-20) mg/dL Creatinine (0.66-1.25) mg/dL Calcium (8.4-10.2) mg/dL Phosphorus (2.5-4.5) mg/dL Microbiology - Last 24 Hours (Table) 10/22/18 20:40 Blood Culture Gram Stain - Preliminary Blood Blood Culture - Preliminary Coagulase Negative Staph 10/21/18 23:49 Blood Culture - Preliminary Blood No Growth after 24 hours 10/21/18 23:37 Blood Culture - Preliminary Blood 10/21/18 15:31 Gram Stain - Preliminary Leg - Left Wound Culture - Preliminary 10/21/18 15:31 Gram Stain - Preliminary Leg - Left Wound Culture - Preliminary 10/16/18 10:40 Blood Culture - Final Blood No Growth after 144 hours 10/16/18 10:10 Blood Culture - Final Blood No Growth after 144 hours Assessment and Plan Assessment: Acute hypoxic respiratory failure secondary to ARDS and possible aspiration pne umonia. Status post tracheostomy. Remains on mechanical ventilator. Status post aortofemoral bypass surgery on 10/07/2018 Severe peripheral vascular disease Acute kidney injury secondary to ATN and suspected contrast-induced. Requiring hemodialysis COPD Chronic back pain Paroxysmal atrial fibrillation Aortic dissection as noted on CT abdomen Morbid obesity with BMI 40.4 Plan: Patient is being continued on ventilator support. Status post tracheostomy. Continue with antibiotics in the form of ceftriaxone and vancomycin. Patient is being continued on TPN. Hemodialysis as per nephrology. Patient is being followed by critical care, nephrology and ID. Prognosis remains guarded at this time. Time with Patient: Greater than 30
--- NOTE | 2018-10-24 23:36 | P.PN ---
Subjective Progress Note Date: 10/24/18 Principal diagnosis: Acute hypoxic respiratory failure secondary to aspiration pneumonia and ARDS Status post Aorto- femoral bypass surgery Patient is a 53-year-old male who underwent aortofemoral bypass graft on 10/07/2018 the right common femoral thromboendarterectomy. Patient had complicated course with acute hypoxemic respiratory failure, possible aspiration pneumonia and ARDS. Patient also developed acute on chronic kidney disease secondary to ATN and contrast nephropathy currently started on hemodialysis. Plan for trach and PEG tube placement. 10/22/2018 Patient had tracheostomy today. PEG tube cannot be placed due to possible ileus. Patient otherwise arousable and follows simple commands but cannot communicate at this time. Chest x-ray showed diffuse interstitial pattern with bilateral small effusions greater on the left. Findings are suggestive of res olving ARDS. Patient did have hemodialysis today. Patient is oliguric. Laboratory data showed WBC 12.9 and hemoglobin 7.4, BUN 63 and creatinine 4.5oliguric, and he is requiring daily hemodialysis at this point. Labs today showed hemoglobin of 7.4 WBC count of 12.9. ABG showed a pO2 of 96 pCO2 of 36 pH of 7.48 No fever no chills. 10/23/2018 Patient is currently awake alert but could not communicate.Propofol dose is being tapered down.. Patient is status post tracheostomy. Currently remains on ventilator support. Fever no chills. Sodium level is 129. Patient will have hemodialysis today. Chest x-ray findings may be indicated of CHF, volume overload, interstitial edema basilar pneumonia. Blood cultures grew staph aureus. Patient is on vancomycin and ceftriaxone. Pulmonary ID and CT surgery on board. 10/24/2018 Patient remained on mechanical ventilator. Patient is currently sedated. Patient is scheduled for PEG tube placement. Patient was also found have bleeding from the tracheostomy site. Blood cultures grew coagulase-negative staph aureus. Vancomycin has been discontinued. Patient is being continued on ceftriaxone. ID is following. Hemodialysis being done as per nephrology. Chest x-ray showed possible left lower lobe atelectasis versus pneumonia. Currently heparin drip is being continued. Complete review of systems could not be apparent from the patient. Discussed with his family at bedside in detail. Current medications reviewed. Objective - Vital Signs Vital signs: Vital Signs Temp 99.7 F H 10/24/18 20:00 Pulse 102 H 10/24/18 21:00 Resp 13 10/24/18 21:00 BP 114/62 10/24/18 21:00 Pulse Ox 100 10/24/18 21:00 Intake & Output 10/24/18 10/24/18 10/25/18 06:59 18:59 06:59 Intake Total 2487.422 1706.271 210 Output Total 332 4935 52 Balance 2155.422 -3228.729 158 Weight 115.2 kg Intake: IV 1033 1470 210 Normal Saline carrier 130 120 10 PPN 900 800 200 Pressure bag 3 Vancomycin 1,750 mg In 500 Sodium Chloride 0.9% 500 ml 500 ml @ 167 mls/hr IVPB ONCE ONE Rx#: [id number] cefTRIAXone 2 gm In 50 Sodium Chloride 0.9% 50 ml @ 100 mls/hr IVPB Q24HR [facility] Rx#:[id number] Intake, IV Titration 1454.422 236.271 Amount ACETAMINOPHEN IV (For NPO 100 ) 1,000 mg In Empty Bag 1 bag @ 400 mls/hr IVPB ONCE [facility] Rx#:[id number] Heparin Sod,Pork in 0.45% 110.07 NaCl 25,000 unit In 0.45 % NaCl 1 250ml.bag @ 18 UNITS/KG/HR 20.682 mls/hr IV .Q12H6M [facility] Rx#: [id number] Propofol 1,000 mg In 215.852 236.271 Empty Bag 1 bag @ Titrate IV .Q0M [facility] Rx#: [id number] Sodium Acetate 15 meq 1028.5 Calcium Gluconate 1 gm Potassium Chloride 10 meq Sodium Chloride 2.5MEQ/ ml Vial 15 meq In Amino Acid 4.25%-D10w 1,000 ml @ 100 mls/hr IV .BY DURATION [facility] Rx#: [id number] Output: Gastric Drainage 750 Urine 332 175 52 Hemodialysis 4000 Estimated Blood Loss 10 Other: Voiding Method Indwelling Catheter Indwelling Catheter # Bowel Movements 2 ABP, PAP, CO, CI - Last Documented Arterial Blood Pressure 145/62 - Exam PHYSICAL EXAMINATION: Patient is lying in the bed comfortably, no acute distress, awake alert and cannot communicate verbally... HEENT: Normocephalic. Neck is supple. Pupils reactive. Nostrils clear. Oral cavity is moist. Ears reveal no drainage. Neck reveals no JVD, carotid bruits, or thyromegaly. CHEST EXAMINATION: Trachea is central. Tracheostomy tube present. Symmetrical expansion. Bibasilar diminished air entry and crackles positive no wheezing.. CARDIAC: Normal S1, S2 with no gallops. No murmurs ABDOMEN: Soft. Bowel sounds normal. No organomegaly. No abdominal bruits. Extremities: Lateral lower exudate swelling and scrotal edema.. No clubbing or cyanosis Neurologically awake, alert and follows simple commands.. No gross focal deficits noted. Skin: No rash . Multiple ecchymotic patches on the bilateral upper extremities.. Psychiatric: Coperative. Could not be assessed completely Musculoskeletal: No joint swelling or deformity. - Labs CBC & Chem 7: 10/24/18 04:54 10/24/18 04:54 Labs: Abnormal Lab Results - Last 24 Hours (Table) 10/24/18 10/24/18 10/24/18 Range/Units 04:54 04:54 04:54 RBC 2.45 L (4.30-5.90) m/uL Hgb 7.1 L (13.0-17.5) gm/dL Hct 21.5 L (39.0-53.0) % RDW 17.2 H (11.5-15.5) % APTT 78.5 H (22.0-30.0) sec Sodium 131 L (137-145) mmol/L Chloride 96 L (98-107) mmol/L BUN 61 H (9-20) mg/dL Creatinine 4.43 H (0.66-1.25) mg/dL POC Glucose (mg/dL) (75-99) mg/dL Calcium 7.9 L (8.4-10.2) mg/dL Phosphorus 5.7 H (2.5-4.5) mg/dL 10/24/18 Range/Units 20:46 RBC (4.30-5.90) m/uL Hgb (13.0-17.5) gm/dL Hct (39.0-53.0) % RDW (11.5-15.5) % APTT (22.0-30.0) sec Sodium (137-145) mmol/L Chloride (98-107) mmol/L BUN (9-20) mg/dL Creatinine (0.66-1.25) mg/dL POC Glucose (mg/dL) 117 H (75-99) mg/dL Calcium (8.4-10.2) mg/dL Phosphorus (2.5-4.5) mg/dL Microbiology - Last 24 Hours (Table) 10/23/18 15:12 Catheter Tip Culture - Preliminary Catheter Tip 10/23/18 11:15 Blood Culture - Preliminary Blood No Growth after 24 hours 10/23/18 11:20 Blood Culture - Preliminary Blood No Growth after 24 hours 10/21/18 23:37 Blood Culture - Final Blood 10/21/18 23:49 Blood Culture - Preliminary Blood No Growth after 48 hours 10/22/18 23:24 Blood Culture - Preliminary Blood No Growth after 24 hours 10/22/18 22:50 Blood Culture - Preliminary Blood No Growth after 24 hours 10/21/18 15:31 Anaerobic Culture - Preliminary Leg - Left 10/22/18 20:40 Blood Culture Gram Stain - Final Blood Blood Culture - Final Coagulase Negative Staph 10/21/18 15:31 Gram Stain - Final Leg - Left Wound Culture - Final 10/21/18 15:31 Gram Stain - Final Leg - Left Wound Culture - Final Assessment and Plan Assessment: Acute hypoxic respiratory failure secondary to ARDS and possible aspiration pneumonia. Status post tracheostomy. Remains on mechanical ventilator. Status post aortofemoral bypass surgery on 10/07/2018 Severe peripheral vascular disease Acute kidney injury secondary to ATN and suspected contrast-induced. Requiring hemodialysis COPD Chronic back pain Paroxysmal atrial fibrillation Aortic dissection as noted on CT abdomen Morbid obesity with BMI 40.4 Plan: Patient is being continued on ventilator support. Status post tracheostomy. PEG tube scheduled to replace today. Continue with antibiotics in the form of ceftriaxone. vancomycin discontinued since the blood cultures grew coagulase-negative staph aureus. Repeat blood cultures negative so far.. Patient is being continued on TPN. Hemodialysis as per nephrology. Patient is being followed by critical care, nephrology and ID. Prognosis re caitlin guarded at this time. Time with Patient: Greater than 30
[2018-10-25] MEDS: PROPOFOL 1,000 MG in EMPTY BAG 1 BAG IV SCH ×2 (00:46→05:13)
[2018-10-25 05:35] LABS: Ionized Calcium 4.7 mg/dL (4.5-5.3)
[2018-10-25 05:42] LABS: Anisocytosis Slight; HCT 20.7 % (39.0-53.0); Hypochromasia Moderate; MCHC 31.4 g/dL (31.0-37.0); MCV 92.2 fL (80.0-100.0); Mean Platelet Volume 8.4; Platelet Count 224 k/uL (150-450); RBC 2.24 m/uL (4.30-5.90); RDW 17.2 % (11.5-15.5); WBC 7.6 k/uL (3.8-10.6)
[2018-10-25 05:45] LABS: HGB 6.5 gm/dL (13.0-17.5)
[2018-10-25 05:46] LABS: Albumin 2.3 g/dL (3.5-5.0); Phosphorus 5.3 mg/dL (2.5-4.5); Potassium 3.8 mmol/L (3.5-5.1)
[2018-10-25] MEDS: HEPARIN SODIUM,PORCINE 5,000 UNIT/ML 1 ML VIAL IV PRN (06:06)
--- NOTE | 2018-10-25 07:28 | XR ---
EXAMINATION TYPE: XR chest 1V portable DATE OF EXAM: 10/25/2018 COMPARISON: 10/24/2018 HISTORY: Ventilatory dependent respiratory failure. Follow-up for ARDS. TECHNIQUE: Single frontal view of the chest is obtained. FINDINGS: There is a persistent left basilar opacity although slightly improved in the interim with blunting of the left costophrenic angle suggesting a trace left pleural effusion. Remainder of the jeannie ngs are well aerated. Enteric tube has been removed in the interim. Midline tracheostomy is again see n as well as dual lumen large bore right internal jugular approach central venous catheter. No acute osseous pathology with multilevel mild degenerative changes of thoracic spine. IMPRESSION: Slight improvement of the left basilar airspace disease and trace left pleural effusion. Again this may represent atelectasis or pneumonia.
[2018-10-25 07:34] LABS: Glucose,Whole Blood 121 mg/dL (75-99)
[2018-10-25] MEDS: IPRATROPIUM-ALBUTEROL 3 ML NEB INHALATION SCH ×4 (08:03→20:20)
[2018-10-25] MEDS: FUROSEMIDE 10 MG/ML 10 ML VIAL IV SCH ×2 (08:26→20:40)
[2018-10-25] MEDS: ASPIRIN 81 MG PO SCH (08:26)
[2018-10-25] MEDS: FENOFIBRATE 160 MG TAB PO SCH (08:26)
[2018-10-25] MEDS: PANTOPRAZOLE 40 MG/10 ML VIAL IVP SCH (08:26)
[2018-10-25] MEDS: CHLORHEXIDINE GLUCONATE 15 ML CUP MUCOUS MEM SCH ×2 (08:26→20:39)
[2018-10-25] MEDS: AMIODARONE 200 MG TAB PO SCH ×2 (08:26→20:39)
[2018-10-25] MEDS: GABAPENTIN 300 MG CAP PO SCH ×3 (08:34→20:40)
[2018-10-25] MEDS: COLLAGENASE 250 UNIT/GM OINTMENT 30 GM TUBE TOPICAL SCH (08:34)
[2018-10-25] MEDS: BISACODYL 10 MG SUPP RECTAL SCH (08:34)
[2018-10-25] MEDS: CALCIUM ACETATE 667 MG CAP PO SCH ×2 (08:34→17:01)
[2018-10-25] MEDS ORDERED: DESMOPRESSIN ACETATE 25 MCG in SODIUM CHLORIDE 0.9% 50 ML IVPB ONE (09:05)
--- NOTE | 2018-10-25 09:06 | P.PN ---
Subjective Patient is seen in follow-up for acute kidney injury, currently hemodialysis dependent. Patient underwent aortobifemoral bypass graft on 10/07/2018 with right common femoral thromboendarterectomy. He's been off vasopressors since October 20. Urine output improved with IV Lasix - 25-50 cc/hr. Patient underwent tracheostomy on October 22. He also had a tunnel subclavian catheter placed for dialysis. Remains edematous. He was noted to have bleeding from the tracheostomy site yesterday and was evaluated by surgery. Small areas of oozing along the skin edges was notified and was controlled with cautery. He also had a PEG tube placed. He is currently seen while undergoing hemodialysis. Hemoglobin today is 6.5. Vital signs are stable. General: The patient appeared well nourished and normally developed. Tracheostomy noted. HEENT: Head exam is unremarkable. Neck is without jugular venous distension. LUNGS: Breath sounds decreased. HEART: Rate and Rhythm are regular. First and second heart sounds normal. No murmurs, rubs or gallops. ABDOMEN: Bowel sounds present. Soft. EXTREMITITES: 2+ edema. No obvious drainage noted. Scrotal edema noted. Objective - Vital Signs Vital signs: Vital Signs Temp 98.6 F 10/25/18 08:32 Pulse 93 10/25/18 08:32 Resp 22 10/25/18 08:32 BP 120/67 10/25/18 08:32 Pulse Ox 98 10/25/18 08:32 Intake & Output 10/24/18 10/25/18 10/25/18 18:59 06:59 18:59 Intake Total 1174.739 2056.034 330 Output Total 4935 359 100 Balance -3228.729 1169.034 230 Weight 107.1 kg Intake: IV 1470 1200 330 Normal Saline carrier 120 100 30 PPN 800 1100 300 Vancomycin 1,750 mg In 500 Sodium Chloride 0.9% 500 ml 500 ml @ 167 mls/hr IVPB ONCE ONE Rx#: [id number] cefTRIAXone 2 gm In 50 Sodium Chloride 0.9% 50 ml @ 100 mls/hr IVPB Q24HR [facility] Rx#:[id number] Intake, IV Titration 236.271 328.034 Amount Heparin Sod,Pork in 0.45% 133.035 NaCl 25,000 unit In 0.45 % NaCl 1 250ml.bag @ 18 UNITS/KG/HR 20.682 mls/hr IV .Q12H6M [facility] Rx#: [id number] Propofol 1,000 mg In 236.271 194.999 Empty Bag 1 bag @ Titrate IV .Q0M [facility] Rx#: [id number] Blood Product 0 Rc As-1 Unit 0 [id number] Output: Gastric Drainage 750 Urine 175 359 100 Hemodialysis 4000 Estimated Blood Loss 10 Other: Voiding Method Indwelling Catheter Indwelling Catheter # Bowel Movements 1 ABP, PAP, CO, CI - Last Documented Arterial Blood Pressure 145/62 - Labs CBC & Chem 7: 10/25/18 05:07 10/25/18 05:07 Labs: Abnormal Lab Results - Last 24 Hours (Table) 10/11/18 10/24/18 10/25/18 Range/Units 11:56 20:46 05:07 RBC (4.30-5.90) m/uL Hgb (13.0-17.5) gm/dL Hct (39.0-53.0) % RDW (11.5-15.5) % APTT (22.0-30.0) sec Sodium 127 L (137-145) mmol/L Chloride 94 L (98-107) mmol/L BUN 58 H (9-20) mg/dL Creatinine 4.38 H (0.66-1.25) mg/dL Glucose 469 H (74-99) mg/dL POC Glucose (mg/dL) 117 H (75-99) mg/dL Calcium 8.0 L (8.4-10.2) mg/dL Phosphorus 5.3 H (2.5-4.5) mg/dL Albumin 2.3 L (3.5-5.0) g/dL Crossmatch See Detail 10/25/18 10/25/18 10/25/18 Range/Units 05:07 05:07 06:43 RBC 2.24 L (4.30-5.90) m/uL Hgb 6.5 L* (13.0-17.5) gm/dL Hct 20.7 L (39.0-53.0) % RDW 17.2 H (11.5-15.5) % APTT 36.7 H (22.0-30.0) sec Sodium (137-145) mmol/L Chloride (98-107) mmol/L BUN (9-20) mg/dL Creatinine (0.66-1.25) mg/dL Glucose (74-99) mg/dL POC Glucose (mg/dL) (75-99) mg/dL Calcium (8.4-10.2) mg/dL Phosphorus (2.5-4.5) mg/dL Albumin (3.5-5.0) g/dL Crossmatch See Detail 10/25/18 Range/Units 07:33 RBC (4.30-5.90) m/uL Hgb (13.0-17.5) gm/dL Hct (39.0-53.0) % RDW (11.5-15.5) % APTT (22.0-30.0) sec Sodium (137-145) mmol/L Chloride (98-107) mmol/L BUN (9-20) mg/dL Creatinine (0.66-1.25) mg/dL Glucose (74-99) mg/dL POC Glucose (mg/dL) 121 H (75-99) mg/dL Calcium (8.4-10.2) mg/dL Phosphorus (2.5-4.5) mg/dL Albumin (3.5-5.0) g/dL Crossmatch Microbiology - Last 24 Hours (Table) 10/21/18 15:31 Anaerobic Culture - Final Leg - Left Anaerobic Gm Positive Bacill 10/21/18 23:49 Blood Culture - Preliminary Blood No Growth after 72 hours 10/22/18 23:24 Blood Culture - Preliminary Blood No Growth after 48 hours 10/22/18 22:50 Blood Culture - Preliminary Blood No Growth after 48 hours 10/23/18 15:12 Catheter Tip Culture - Preliminary Catheter Tip 10/23/18 11:15 Blood Culture - Preliminary Blood No Growth after 24 hours 10/23/18 11:20 Blood Culture - Preliminary Blood No Growth after 24 hours 10/21/18 23:37 Blood Culture - Final Blood Assessment and Plan Plan: Assessment: 1. Acute kidney injury secondary to ATN secondary to hypotension and contrast- induced nephropathy. Currently hemodialysis dependent. No evidence of renal recovery at this time. Patient's creatinine in August 2018 was in the range of 1.3-1.7. 2. 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 Vascular surgery following. 3. Volume overload. 4. A. fib with RVR. Now rate controlled. 5. Chronic kidney disease stage III secondary to nephrosclerosis. Baseline creatinine in the range of 1.3-1.7. 6. Anemia of chronic illness. High ferritin level noted. Maintained on Aranesp. Component of acute blood loss secondary to bleeding from the tracheostomy site. 7. Hypervolemic hyponatremia. Also component of hyperglycemia. 8. Ileus. Maintained on TPN. Status post PEG tube placement on November 01. 9. Hyperphosphatemia secondary to acute kidney injury maintained on PhosLo. Better. Plan: Currently seen while undergoing hemodialysis. Maintain daily dialysis for now. Will try for 3-4 L ultrafiltration. Maintain IV Lasix 80 mg twice daily. Continue to monitor renal function and urine output. Monitor vancomycin levels. Target level below 20. Scheduled for blood transfusion today. I will also give him a dose of DDAVP.
[2018-10-25 10:22] LABS: Protein C Antigen 137 % (72-160)
[2018-10-25 10:38] LABS: Protein S Antigen 146 % (50 - 140)
[2018-10-25 10:45] LABS: APTT 48 Sec(s) (<43); APTT 1:1 Mix 42 Sec(s) (<43); DRVVT 1:1 Mix 47 Sec(s) (<44); DRVVT Confirmation Positive (Negative); Dilute Russell Viper Venom 62 Sec(s) (<44)
[2018-10-25] MEDS: HYDROmorphone 1 MG/ML 1 ML SYRINGE IVP PRN ×3 (11:14→21:46)
[2018-10-25] MEDS: HEPARIN SOD,PORK IN 0.45% NACL 25,000 UNIT in 0.45% NACL 1 250ML.BAG IV SCH ×2 (11:30→14:23)
[2018-10-25 12:58] LABS: Anti-Thrombin III Activity 52 % (79-109)
[2018-10-25 13:33] LABS: Anisocytosis Slight; Basophils # (A) 0.1 k/uL (0-0.2); Basophils % (A) 1 %; Eosinophils # (A) 0.3 k/uL (0-0.7); Eosinophils % (A) 3 %; HCT 24.8 % (39.0-53.0); Hypochromasia Slight; Lymphocytes # (A) 0.9 k/uL (1.0-4.8); Lymphocytes % (A) 9 %; MCH 28.9 pg (25.0-35.0); MCHC 32.4 g/dL (31.0-37.0); MCV 89.1 fL (80.0-100.0); Mean Platelet Volume 8.3; Monocytes # (A) 0.6 k/uL (0-1.0); Monocytes % (A) 6 %; Neutrophils # (A) 7.6 k/uL (1.3-7.7); Neutrophils % (A) 78 %; Platelet Count 199 k/uL (150-450); RBC 2.79 m/uL (4.30-5.90); RDW 16.9 % (11.5-15.5); WBC 9.7 k/uL (3.8-10.6)
[2018-10-25] MEDS: NOREPINEPHRINE 32 MG in SODIUM CHLORIDE 0.9% 218 ML IV SCH (14:56)
--- NOTE | 2018-10-25 14:56 | CDI ---
Documentation Clarification Form Date: 10/25/2018 2:22:33 PM From: Bobbi Cameron RN CCDS Admit Date: 10/07/2018 9:41:00 AM Patient Name: Ralph Agarwal Visit Number: [id number] Discharge Date: ATTENTION: The Clinical Documentation Specialists (CDI) and [facility] Coding Staff appreciate your assistance in clarifying documentation. Please respond to the clarification below the line at the bottom and electronically sign. The CDI & [facility] Coding staff will review the response and follow-up if needed. Please note: Queries are made part of the Legal Health Record. If you have any questions, please contact the author of this message via ITS. Dr. Dhruv Guajardo Malnutrition has been documented in your progress note 10/24/2018 History/Risk Factors: 53 year old male presented to [facility] for elective Aortobifemoral bypass. Medical History of Aortoiliac occlusive disease. nicotine dependence, HTN , PVD, CKD, Hyperlipidemia Clinical Indicators: Labs: Albumin 2.3 / Total Protein 4.6: Current BMI: 35 2018 progress note bmi 39.3 Treatment: NG Tube feeding Peg Tube Insertion 10/24/2018 Supplements: Tube feeding started 10/13/2018 Tube feeding started on 10/13/2018 Lab monitoring: CBC, BMP In your professional opinion, can you please clarify if these findings signify one of the following conditions? Mild Protein-Calorie Malnutrition Moderate Protein-Calorie Malnutrition Severe Protein-Calorie Malnutrition Other condition, please specify Unable to determine (Last Revision: August 2017) Moderate Protein Calorie Malnutrition MTDD
--- NOTE | 2018-10-25 15:04 | P.PN ---
Subjective Progress Note Date: 10/25/18 Principal diagnosis: acute ventilator-dependent hypoxic respiratory failure secondary to aspiration pneumonia and ARDS. On 10/20/2018 of seeing this patient for a follow-up. The patient is sedated on 30 mics of propofol. He was able to come off sedation adequately yesterday as the patient became restless and they suggested a mechanical ventilator. This morning it is back on sedation. He was on a PEEP of 11 with an FiO2 of 40% and a rate of 400 and respiratory rate of 32. I realize that the patient ever pressure lower and he was sucking way higher tidal volumes as with provided to him through the mechanical ventilator. Based on that, switch this patient to a VC plus mode and increase the tidal volume to 500 and dropped a respiratory rate up to 24 and dropped PEEP down to 9 keeping the FiO2 at 40% and the chest x-ray shows improvement of breath and pulmonary infiltrates. The patient's airway pressure steadily on the decline. Lower lobe consolidation improving and the patient is currently on IV meropenem. He is on TPN for nutritional support. Abdomen is slightly distended and hypoactive bowel sounds. Orogastric tube is in place. Surgical abdominal wound site is dry clean and intact. The groin wounds are clean and intact. Pulses in the lower extremities are obtained and measured by Doppler. He has undergone 4 sessions of hemodialysis and the lacer ation was done yesterday without any complication with significant ultrafiltration. He is afebrile. He is hemodynamically stable on no pressors and both of vasopressin and levo fed has been discontinued. I am thinking and the patient will be a difficult wean and is reasonable to consider a PEG and trach special with above-mentioned medical problems and comorbidities encountered over the past 1 week. His white cell count is 17. Hemoglobin stable at 8.0. The patient remains on IV heparin. PH is 7.49 with a pCO2 of 38 and pO2 of 103. There is scrotal edema which is also improving. Reevaluated today on 10/21/2018, patient remains on mechanical ventilation, sedated, presently on assist control rate of 22, FiO2 of 45%, tidal volume of 500, and PEEP of 6. patient is actually on volume control plus mode of mechanical ventilation. Hence his tidal volume varies from breast of breath. I was able to drop the PEEP down to 6 today. Patient seems to be ventilating quite well. He is hemodynamically stable today, off all pressors, remains on antibiotics for left lower lobe consolidation and fever, he is on Merrem. Remains on TPN, and he may undergo tracheostomy and PEG tube placement today by Dr. rodriguez. However he is yet to have his dialysis this morning.WBC count is 15.8 hemoglobin is 7.7. ABG this morning showed a pO2 of 122 pCO2 of 37 pH of 7.46.worsening renal profile is noted today, BUN is 66 creatinine is 5.03, patient remains oliguric, roughly about 30 mL of urine per shift. Patient was reevaluated today on , remains on mechanical ventilation. Patient was reevaluated today on 10/22/2018, remains on mechanical ventilation, he is now on assist control rate of 22, tidal volume of 500/volume control plus, FiO2 45%, PEEP of 6. Remains on propofol at 20 mcg/kg/m, patient is arousable, seems to follow simple instructions, presently on dialysis. Patient is van eduled to undergo tracheostomy and possible PEG tube placement today. Chest x- ray showed diffuse interstitial pattern with bilateral small effusions greater on the left. The findings are suggestive of resolving ARDS, doubt cardiogenic pulmonary edema. Although the possibility of interstitial edema is not entirely ruled out considering the patient is oliguric, and he is requiring daily hemodialysis at this point. Labs today showed hemoglobin of 7.4 WBC count of 12.9. ABG showed a pO2 of 96 pCO2 of 36 pH of 7.48 Reevaluated today on 10/23/2018, patient remains on mechanical ventilation, und erwent tracheostomy today, but no PEG tube was placed. Patient remains on same ventilator settings, assist control rate of 22, tidal volume 500+ FiO2 45% PEEP 6. Patient had an uneventful tracheostomy however there is evidence of some leak and volume loss around the tracheostomy site. And what is more concerning today is the fact that the patient had multiple positive blood cultures for what seems to be staph epidermidis, and I believe the patient may have catheter related sepsis from his catheters including his central line and arterial line. Most likely it is his left subclavian central line which would have to be removed today, and the tip will be cultured. I have instructed the nurses to call for a midline placement in the meantime the patient remains on antibiotics in the form of vancomycin. After 24 or 48 hours, decline may have to be placed. Patient remains sedated, he is on propofol, and I plan to taper the propofol down, assess his mental status. ABG today showed a pO2 of 110 pCO2 of 36 pH of 7.46 electrolytes were noted renal profile remains abnormal sodium is 129. Patient remains on dialysis and he is scheduled to undergo dialysis again today. Chest x-ray showed mild interstitial edema. And bibasilar atelectasis. Reevaluated today on 10/24/2018, patient remains on mechanical ventilation, he underwent a weaning trial with a pressure support of 8 and CPAP yesterday, tolerated at least a good 6 hours of weaning. However he was noted after 6 hours to become more agitated, restless, and tachycardic as well as tachypneic. Hence patient is back on assist control mode of mechanical ventilation, and patient is being considered for possible PEG tube placement today. His central line was discontinued yesterday and cultured, patient is now on vancomycin and Rocephin, evaluated by infectious disease again, and agreed with the plan to discontinue central line, patient is now being managed mostly with peripheral lines, and he will be on peripheral TPN. I plan to continue weaning trial today with a pressure support and CPAP, however if the patient is scheduled for a PEG tube placement, we will delay until the PEG tube is placed. Blood cultures from yesterday are pending. The tip of the catheter culture is pending. Patient will eventually need a PICC line placement hopefully in the next 24 hours. That means he would have received a good course of IV antibiotics for staph epidermidis catheter sepsis 4-48 hours before we proceed with another central line placement/PICC line. Patient is being dialyzed today, he is hemodynamically stable, not requiring any pressors. His ventilator settings are tidal volume of 500 assist control rate of 20 to FiO2 of 45% and PEEP is 6. In spite of being on a low dose of propofol, patient seems to be comprehending, and follows simple instructions. Reevaluated today on 10/25/2018, remains on mechanical ventilation, awake, extremely weak, follows very simple instructions. His ventilator settings are assist control rate of 20, volume 450 FiO2 50% PEEP of 5. Remains on hemodialysis on a daily basis, patient is presently off pressors, urine output is gradually improving about 25-50 mL per hour. Patient is status post tracheostomy on October 22. And he is status post PEG tube placement on October 24. Patient remains quite edematous. Awake, follows simple instructions, and today I plan to give him a trial of pressure support and CPAP again. However his pressure support will be up to 10 and while I was at bedside, I noted that the patient is doing quite well with pressure support of 10, tidal volumes are in the 800-1000 range. And he seems to be comfortable on a pressure support with CPAP chest x-ray and labs were reviewed. Minimal interstitial edema noted on the chest x-ray. Objective - Vital Signs Vital signs: Vital Signs Temp 98.4 F 10/25/18 12:00 Pulse 103 H 10/25/18 14:00 Resp 11 L 10/25/18 14:00 BP 135/83 10/25/18 14:00 Pulse Ox 98 10/25/18 14:00 Intake & Output 10/24/18 10/25/18 10/25/18 18:59 06:59 18:59 Intake Total 9476.782 7004.999 1716.308 Output Total 4935 359 4140 Balance -3228.729 1285.999 -2423.692 Weight 107.1 kg 107.1 kg Intake: IV 1470 1200 980 Desmopressin Acetate 25 50 mcg In Sodium Chloride 0. 9% 50 ml @ 200 mls/hr IVPB ONCE ONE Rx#: [id number] Mvi, Adult No.4 with Vit 0 K 10 ml Trace (Conc-1Ml/ Dose) 1 ml Sodium Acetate 15 meq Calcium Gluconate 1 gm Potassium Chloride 10 meq Sodium Chloride 2. 5MEQ/ml Vial 15 meq In Amino Acid 4.25%-D10w 1, 000 ml @ 100 mls/hr IV . BY DURATION [facility] Rx#: [id number] Normal Saline carrier 120 100 80 PPN 800 1100 800 Vancomycin 1,750 mg In 500 Sodium Chloride 0.9% 500 ml 500 ml @ 167 mls/hr IVPB ONCE ONE Rx#: [id number] cefTRIAXone 2 gm In 50 50 Sodium Chloride 0.9% 50 ml @ 100 mls/hr IVPB Q24HR [facility] Rx#:[id number] Intake, IV Titration 236.271 444.999 116.308 Amount Heparin Sod,Pork in 0.45% 250.000 46.215 NaCl 25,000 unit In 0.45 % NaCl 1 250ml.bag @ 18 UNITS/KG/HR 20.682 mls/hr IV .Q12H6M [facility] Rx#: [id number] Propofol 1,000 mg In 236.271 194.999 70.093 Empty Bag 1 bag @ Titrate IV .Q0M [facility] Rx#: [id number] Blood Product 620 Rc As-1 Unit 310 [id number] Output: Gastric Drainage 750 Urine 175 359 140 Hemodialysis 4000 4000 Estimated Blood Loss 10 Other: Voiding Method Indwelling Catheter Indwelling Catheter Indwelling Catheter # Bowel Movements 1 ABP, PAP, CO, CI - Last Documented Arterial Blood Pressure 145/62 - Exam GENERAL EXAM: revealed a 53-year-old white male on mechanical ventilation, sedated, in no distress. HEAD: Normocephalic/atraumatic. EENT: PERRLA, EOMI, tracheostomy seems to be intact no neck masses. CHEST: No chest wall deformity. Symmetrical expansion. LUNGS:minimal fine crackles at the bases. No rhonchi and no wheezes. CVS: normal S1 and S2, no gallops. No murmur. ABDOMEN:soft nontender no megaly. Diminished bowel sounds. Midabdominal and Bilateral groin incisions, left groin incision with wound VAC in place. Significant scrotal swelling is noted EXTREMITIES: Continues to have sterile dressing on his bilateral lower extremities once, pulses are extremely diminished felt only by Doppler. Feet are both warm. MUSCULOSKELETAL: Patient follows simple instructions, move upper and lower extremities upon command. SKIN: As noted under extremities. CENTRAL NERVOUS SYSTEM: Arousable, following simple instructions. - Labs CBC & Chem 7: 10/25/18 12:42 10/25/18 05:07 Labs: Abnormal Lab Results - Last 24 Hours (Table) 10/11/18 10/22/18 10/22/18 Range/Units 11:56 15:21 15:21 RBC (4.30-5.90) m/uL Hgb (13.0-17.5) gm/dL Hct (39.0-53.0) % RDW (11.5-15.5) % Lymphocytes # (1.0-4.8) k/uL APTT (22.0-30.0) sec Lupus Anticoag aPTT 48 H (<43) Sec(s) Dil Jaycob Viper Venom 62 H (<44) Sec(s) LA dRVVT Confirm Positive H (Negative) dRVVT 50:50 47 H (<44) Sec(s) Protein S Antigen 146 H (50 - 140) % Antithrombin III Activ 52 L (79-109) % Sodium (137-145) mmol/L Chloride (98-107) mmol/L BUN (9-20) mg/dL Creatinine (0.66-1.25) mg/dL Glucose (74-99) mg/dL POC Glucose (mg/dL) (75-99) mg/dL Calcium (8.4-10.2) mg/dL Phosphorus (2.5-4.5) mg/dL Albumin (3.5-5.0) g/dL Crossmatch See Detail 10/24/18 10/25/18 10/25/18 Range/Units 20:46 05:07 05:07 RBC 2.24 L (4.30-5.90) m/uL Hgb 6.5 L* (13.0-17.5) gm/dL Hct 20.7 L (39.0-53.0) % RDW 17.2 H (11.5-15.5) % Lymphocytes # (1.0-4.8) k/uL APTT (22.0-30.0) sec Lupus Anticoag aPTT (<43) Sec(s) Dil Jaycob Viper Venom (<44) Sec(s) LA dRVVT Confirm (Negative) dRVVT 50:50 (<44) Sec(s) Protein S Antigen (50 - 140) % Antithrombin III Activ (79-109) % Sodium 127 L (137-145) mmol/L Chloride 94 L (98-107) mmol/L BUN 58 H (9-20) mg/dL Creatinine 4.38 H (0.66-1.25) mg/dL Glucose 469 H (74-99) mg/dL POC Glucose (mg/dL) 117 H (75-99) mg/dL Calcium 8.0 L (8.4-10.2) mg/dL Phosphorus 5.3 H (2.5-4.5) mg/dL Albumin 2.3 L (3.5-5.0) g/dL Crossmatch 10/25/18 10/25/18 10/25/18 Range/Units 05:07 06:43 07:33 RBC (4.30-5.90) m/uL Hgb (13.0-17.5) gm/dL Hct (39.0-53.0) % RDW (11.5-15.5) % Lymphocytes # (1.0-4.8) k/uL APTT 36.7 H (22.0-30.0) sec Lupus Anticoag aPTT (<43) Sec(s) Dil Jaycob Viper Venom (<44) Sec(s) LA dRVVT Confirm (Negative) dRVVT 50:50 (<44) Sec(s) Protein S Antigen (50 - 140) % Antithrombin III Activ (79-109) % Sodium (137-145) mmol/L Chloride (98-107) mmol/L BUN (9-20) mg/dL Creatinine (0.66-1.25) mg/dL Glucose (74-99) mg/dL POC Glucose (mg/dL) 121 H (75-99) mg/dL Calcium (8.4-10.2) mg/dL Phosphorus (2.5-4.5) mg/dL Albumin (3.5-5.0) g/dL Crossmatch See Detail 10/25/18 10/25/18 Range/Units 12:38 12:42 RBC 2.79 L (4.30-5.90) m/uL Hgb 8.0 L D (13.0-17.5) gm/dL Hct 24.8 L (39.0-53.0) % RDW 16.9 H (11.5-15.5) % Lymphocytes # 0.9 L (1.0-4.8) k/uL APTT 122.4 H* (22.0-30.0) sec Lupus Anticoag aPTT (<43) Sec(s) Dil Jaycob Viper Venom (<44) Sec(s) LA dRVVT Confirm (Negative) dRVVT 50:50 (<44) Sec(s) Protein S Antigen (50 - 140) % Antithrombin III Activ (79-109) % Sodium (137-145) mmol/L Chloride (98-107) mmol/L BUN (9-20) mg/dL Creatinine (0.66-1.25) mg/dL Glucose (74-99) mg/dL POC Glucose (mg/dL) (75-99) mg/dL Calcium (8.4-10.2) mg/dL Phosphorus (2.5-4.5) mg/dL Albumin (3.5-5.0) g/dL Crossmatch Microbiology - Last 24 Hours (Table) 10/23/18 11:15 Blood Culture - Preliminary Blood No Growth after 48 hours 10/23/18 11:20 Blood Culture - Preliminary Blood No Growth after 48 hours 10/21/18 15:31 Anaerobic Culture - Final Leg - Left Anaerobic Gm Positive Bacill 10/21/18 23:49 Blood Culture - Preliminary Blood No Growth after 72 hours 10/22/18 23:24 Blood Culture - Preliminary Blood No Growth after 48 hours 10/22/18 22:50 Blood Culture - Preliminary Blood No Growth after 48 hours 10/23/18 15:12 Catheter Tip Culture - Preliminary Catheter Tip Assessment and Plan Assessment: impression: 1 acute ventilator-dependent hypoxic respiratory failure secondary to pneumonia and ARDS. 2 peripheral vessel occlusive disease, status post aortobifemoral bypass surgery on 11/03/2018, with complicated course complicated by pneumonia and ARDS acute kidney injury 3 acute ischemic limbs postop requiring emergent thrombectomy on the right on 10/11/2018 and on the left on 10/23/2018. 4 acute septic shock is likely based on the fact that the patient required significant MR pressors at one point. However presently resolved. 5 acute kidney injury/acute tubular necrosis secondary to sepsis. Patient remains on hemodialysis. Has been receiving dialysis on a daily basis. 6 aortic dissection as noted on CT of the abdomen 7 chronic back pain 8 obesity/BMI of 39.3 9 deep tissue injury to his left heel 10 paroxysmal atrial fibrillation 11 status post tracheostomy and dialysis catheter placement on 10/22/2018. 12 status post PEG tube placement on 10/24/2018 12 strongly suspect catheter related sepsis from central line patient had multiple positive blood culture for staph epidermidis. Hence the central line was removed, catheter tip remains negative so far. recommendation: Continue ventilatory support, nutritional support, switch TPN to enteral feeding via PEG tube.. antibiotics, hemodialysis, , Central line was removed, tip cultures are pending. Negative so far in the last 24 hours P atient will remain on vancomycin, will continue daily trial of weaning with a pressure support and CPAP, patient was placed on pressure support of 10 and CPAP today, we'll try to let him stay on this mode of mechanical ventilation as long as is tolerated. Again overall prognosis remains extremely poor and guarded. Patient will definitely need physical therapy and they were consulted already. Critical care time is 40 minutes Time with Patient: Greater than 30
--- NOTE | 2018-10-25 16:52 | P.PN ---
Subjective Progress Note Date: 10/25/18 Principal diagnosis: Respiratory failure Patient doing well today. More alert on the ventilator. Denies pain. No bleeding overnight. Objective - Vital Signs Vital signs: Vital Signs Temp 98.4 F 10/25/18 12:00 Pulse 102 H 10/25/18 16:02 Resp 18 10/25/18 15:00 BP 135/76 10/25/18 15:00 Pulse Ox 98 10/25/18 15:00 Intake & Output 10/24/18 10/25/18 10/25/18 18:59 06:59 18:59 Intake Total 9870.303 2960.999 1826.308 Output Total 4935 359 4140 Balance -3228.729 1285.999 -2313.692 Weight 107.1 kg 107.1 kg Intake: IV 1470 1200 1090 Desmopressin Acetate 25 50 mcg In Sodium Chloride 0. 9% 50 ml @ 200 mls/hr IVPB ONCE ONE Rx#: [id number] Mvi, Adult No.4 with Vit 0 K 10 ml Trace (Conc-1Ml/ Dose) 1 ml Sodium Acetate 15 meq Calcium Gluconate 1 gm Potassium Chloride 10 meq Sodium Chloride 2. 5MEQ/ml Vial 15 meq In Amino Acid 4.25%-D10w 1, 000 ml @ 100 mls/hr IV . BY DURATION [facility] Rx#: [id number] Normal Saline carrier 120 100 90 PPN 800 1100 900 Vancomycin 1,750 mg In 500 Sodium Chloride 0.9% 500 ml 500 ml @ 167 mls/hr IVPB ONCE ONE Rx#: [id number] cefTRIAXone 2 gm In 50 50 Sodium Chloride 0.9% 50 ml @ 100 mls/hr IVPB Q24HR [facility] Rx#:[id number] Intake, IV Titration 236.271 444.999 116.308 Amount Heparin Sod,Pork in 0.45% 250.000 46.215 NaCl 25,000 unit In 0.45 % NaCl 1 250ml.bag @ 18 UNITS/KG/HR 20.682 mls/hr IV .Q12H6M [facility] Rx#: [id number] Propofol 1,000 mg In 236.271 194.999 70.093 Empty Bag 1 bag @ Titrate IV .Q0M [facility] Rx#: [id number] Blood Product 620 Rc As-1 Unit 310 [id number] Output: Gastric Drainage 750 Urine 175 359 140 Hemodialysis 4000 4000 Estimated Blood Loss 10 Other: Voiding Method Indwelling Catheter Indwelling Catheter Indwelling Catheter # Bowel Movements 1 ABP, PAP, CO, CI - Last Documented Arterial Blood Pressure 145/62 - Exam Tracheostomy incision clean and dry PEG tube without significant tenderness, no bleeding - Labs CBC & Chem 7: 10/25/18 12:42 10/25/18 05:07 Labs: Abnormal Lab Results - Last 24 Hours (Table) 10/11/18 10/22/18 10/22/18 Range/Units 11:56 15:21 15:21 RBC (4.30-5.90) m/uL Hgb (13.0-17.5) gm/dL Hct (39.0-53.0) % RDW (11.5-15.5) % Lymphocytes # (1.0-4.8) k/uL APTT (22.0-30.0) sec Lupus Anticoag aPTT 48 H (<43) Sec(s) Dil Jaycob Viper Venom 62 H (<44) Sec(s) LA dRVVT Confirm Positive H (Negative) dRVVT 50:50 47 H (<44) Sec(s) Protein S Antigen 146 H (50 - 140) % Antithrombin III Activ 52 L (79-109) % Sodium (137-145) mmol/L Chloride (98-107) mmol/L BUN (9-20) mg/dL Creatinine (0.66-1.25) mg/dL Glucose (74-99) mg/dL POC Glucose (mg/dL) (75-99) mg/dL Calcium (8.4-10.2) mg/dL Phosphorus (2.5-4.5) mg/dL Albumin (3.5-5.0) g/dL Crossmatch See Detail 10/24/18 10/25/18 10/25/18 Range/Units 20:46 05:07 05:07 RBC 2.24 L (4.30-5.90) m/uL Hgb 6.5 L* (13.0-17.5) gm/dL Hct 20.7 L (39.0-53.0) % RDW 17.2 H (11.5-15.5) % Lymphocytes # (1.0-4.8) k/uL APTT (22.0-30.0) sec Lupus Anticoag aPTT (<43) Sec(s) Dil Jaycob Viper Venom (<44) Sec(s) LA dRVVT Confirm (Negative) dRVVT 50:50 (<44) Sec(s) Protein S Antigen (50 - 140) % Antithrombin III Activ (79-109) % Sodium 127 L (137-145) mmol/L Chloride 94 L (98-107) mmol/L BUN 58 H (9-20) mg/dL Creatinine 4.38 H (0.66-1.25) mg/dL Glucose 469 H (74-99) mg/dL POC Glucose (mg/dL) 117 H (75-99) mg/dL Calcium 8.0 L (8.4-10.2) mg/dL Phosphorus 5.3 H (2.5-4.5) mg/dL Albumin 2.3 L (3.5-5.0) g/dL Crossmatch 10/25/18 10/25/18 10/25/18 Range/Units 05:07 06:43 07:33 RBC (4.30-5.90) m/uL Hgb (13.0-17.5) gm/dL Hct (39.0-53.0) % RDW (11.5-15.5) % Lymphocytes # (1.0-4.8) k/uL APTT 36.7 H (22.0-30.0) sec Lupus Anticoag aPTT (<43) Sec(s) Dil Jaycob Viper Venom (<44) Sec(s) LA dRVVT Confirm (Negative) dRVVT 50:50 (<44) Sec(s) Protein S Antigen (50 - 140) % Antithrombin III Activ (79-109) % Sodium (137-145) mmol/L Chloride (98-107) mmol/L BUN (9-20) mg/dL Creatinine (0.66-1.25) mg/dL Glucose (74-99) mg/dL POC Glucose (mg/dL) 121 H (75-99) mg/dL Calcium (8.4-10.2) mg/dL Phosphorus (2.5-4.5) mg/dL Albumin (3.5-5.0) g/dL Crossmatch See Detail 10/25/18 10/25/18 Range/Units 12:38 12:42 RBC 2.79 L (4.30-5.90) m/uL Hgb 8.0 L D (13.0-17.5) gm/dL Hct 24.8 L (39.0-53.0) % RDW 16.9 H (11.5-15.5) % Lymphocytes # 0.9 L (1.0-4.8) k/uL APTT 122.4 H* (22.0-30.0) sec Lupus Anticoag aPTT (<43) Sec(s) Dil Jaycob Viper Venom (<44) Sec(s) LA dRVVT Confirm (Negative) dRVVT 50:50 (<44) Sec(s) Protein S Antigen (50 - 140) % Antithrombin III Activ (79-109) % Sodium (137-145) mmol/L Chloride (98-107) mmol/L BUN (9-20) mg/dL Creatinine (0.66-1.25) mg/dL Glucose (74-99) mg/dL POC Glucose (mg/dL) (75-99) mg/dL Calcium (8.4-10.2) mg/dL Phosphorus (2.5-4.5) mg/dL Albumin (3.5-5.0) g/dL Crossmatch Microbiology - Last 24 Hours (Table) 10/23/18 11:15 Blood Culture - Preliminary Blood No Growth after 48 hours 10/23/18 11:20 Blood Culture - Preliminary Blood No Growth after 48 hours 10/21/18 15:31 Anaerobic Culture - Final Leg - Left Anaerobic Gm Positive Bacill 10/21/18 23:49 Blood Culture - Preliminary Blood No Growth after 72 hours 10/22/18 23:24 Blood Culture - Preliminary Blood No Growth after 48 hours 10/22/18 22:50 Blood Culture - Preliminary Blood No Growth after 48 hours 10/23/18 15:12 Catheter Tip Culture - Preliminary Catheter Tip Assessment and Plan (1) Respiratory failure Narrative/Plan: Gradually advance tube feeds as tolerated. Monitor for bleeding. Dr. Landa will cover over the weekend. Please contact him if needed. Current Visit: Yes Status: Acute Code(s): J96.90 - RESPIRATORY FAILURE, UNSP, UNSP W HYPOXIA OR HYPERCAPNIA SNOMED Code(s): 692723293
--- NOTE | 2018-10-25 23:01 | P.PN ---
Subjective Progress Note Date: 10/25/18 Principal diagnosis: Acute hypoxic respiratory failure secondary to aspiration pneumonia and ARDS Status post Aorto- femoral bypass surgery Patient is a 53-year-old male who underwent aortofemoral bypass graft on 10/07/2018 the right common femoral thromboendarterectomy. Patient had complicated course with acute hypoxemic respiratory failure, possible aspiration pneumonia and ARDS. Patient also developed acute on chronic kidney disease secondary to ATN and contrast nephropathy currently started on hemodialysis. Plan for trach and PEG tube placement. 10/22/2018 Patient had tracheostomy today. PEG tube cannot be placed due to possible ileus. Patient otherwise arousable and follows simple commands but cannot communicate at this time. Chest x-ray showed diffuse interstitial pattern with bilateral small effusions greater on the left. Findings are suggestive of res olving ARDS. Patient did have hemodialysis today. Patient is oliguric. Laboratory data showed WBC 12.9 and hemoglobin 7.4, BUN 63 and creatinine 4.5oliguric, and he is requiring daily hemodialysis at this point. Labs today showed hemoglobin of 7.4 WBC count of 12.9. ABG showed a pO2 of 96 pCO2 of 36 pH of 7.48 No fever no chills. 10/23/2018 Patient is currently awake alert but could not communicate.Propofol dose is being tapered down.. Patient is status post tracheostomy. Currently remains on ventilator support. Fever no chills. Sodium level is 129. Patient will have hemodialysis today. Chest x-ray findings may be indicated of CHF, volume overload, interstitial edema basilar pneumonia. Blood cultures grew staph aureus. Patient is on vancomycin and ceftriaxone. Pulmonary ID and CT surgery on board. 10/24/2018 Patient remained on mechanical ventilator. Patient is currently sedated. Patient is scheduled for PEG tube placement. Patient was also found have bleeding from the tracheostomy site. Blood cultures grew coagulase-negative staph aureus. Vancomycin has been discontinued. Patient is being continued on ceftriaxone. ID is following. Hemodialysis being done as per nephrology. Chest x-ray showed possible left lower lobe atelectasis versus pneumonia. Currently heparin drip is being continued. 10/25/2018 Patient is currently awake and alert and oriented. But cannot communicate due to tracheostomy. Sedation is off. Patient is tolerating pressure support with CPAP currently. Patient had PEG tube placement yesterday. No bleeding from tracheostomy tube today. Patient had cauterization done yesterday. Patient did have improved urine output today. Continued on Lasix. Patient underwent hemodialysis. No fever no chills. Currently on antibiotics in the form ceftriaxone. Chest x-ray showed slight improvement of the left basilar airspace disease disease and trace and trace left pleural effusion. Again this may represent atelectasis or pneumonia. Complete review of systems could not be apparent from the patient. Current medications reviewed. Active Medications Albuterol/Ipratropium (Duoneb 0.5 Mg-3 Mg/3 Ml Soln) 3 ml INHALATION RT-QID [facility] Last Admin: 10/25/18 20:20 Dose: 3 ml Documented by: Albuterol/Ipratropium (Duoneb 0.5 Mg-3 Mg/3 Ml Soln) 3 ml INHALATION RT-Q2H PRN PRN Reason: Shortness Of Breath Or Wheezing Last Admin: 10/19/18 23:20 Dose: 3 ml Documented by: Amiodarone HCl (Cordarone) 200 mg PO BID [facility] Last Admin: 10/25/18 20:39 Dose: 200 mg Documented by: Aspirin (Aspirin) 81 mg PO DAILY [facility] Last Admin: 10/25/18 08:26 Dose: 81 mg Documented by: Bisacodyl (Dulcolax) 10 mg RECTAL DAILY [facility] Last Admin: 10/25/18 08:34 Dose: Not Given Documented by: Calcium Acetate (Phoslo) 667 mg PO BID-W/MEALS [facility] Last Admin: 10/25/18 17:01 Dose: Not Given Documented by: Chlorhexidine Gluconate (Peridex) 15 ml MUCOUS MEM BID [facility] Last Admin: 10/25/18 20:39 Dose: 15 ml Documented by: Collagenase (Santyl) 1 applic TOPICAL DAILY [facility] Last Admin: 10/25/18 08:34 Dose: 1 applic Documented by: Darbepoetin Maikel (Aranesp) 40 mcg SQ Q7D [facility] Last Admin: 10/22/18 14:38 Dose: 40 mcg Documented by: Fenofibrate (Lofibra) 160 mg PO DAILY [facility] Last Admin: 10/25/18 08:26 Dose: 160 mg Documented by: Furosemide (Lasix) 80 mg IV Q12HR [facility] Last Admin: 10/25/18 20:40 Dose: 80 mg Documented by: Gabapentin (Neurontin) 300 mg PO TID [facility] Last Admin: 10/25/18 20:40 Dose: 300 mg Documented by: Heparin Sodium (Porcine) (Heparin) 0 unit IV PER PROTOCOL PRN; Protocol PRN Reason: Low PTT Last Admin: 10/25/18 06:06 Dose: 9,192 unit Documented by: Hydromorphone HCl (Dilaudid) 1 mg IVP Q4HR PRN PRN Reason: pain Last Admin: 10/25/18 21:46 Dose: 1 mg Documented by: Propofol 1,000 mg/ IV Solution 100 mls @ 0 mls/hr IV .Q0M [facility]; Protocol Last Titration: 10/25/18 08:30 Dose: 0 mcg/kg/min, 0 mls/hr Documented by: Norepinephrine Bitartrate 32 (mg/ Sodium Chloride) 250 mls @ 2.693 mls/hr IV .Q24H [facility]; Protocol Last Admin: 10/25/18 14:56 Dose: Not Given Documented by: Heparin Sodium/Sodium Chloride (25,000 unit/ Sodium Chloride) 250 mls @ 20.682 mls/hr IV .Q12H6M [facility]; Protocol Last Admin: 10/25/18 14:23 Dose: 17.63 units/kg/hr, 20.257 mls/hr Documented by: Ceftriaxone Sodium 2 gm/ (Sodium Chloride) 50 mls @ 100 mls/hr IVPB Q24HR [facility] Last Admin: 10/25/18 11:14 Dose: 100 mls/hr Documented by: Parenteral Vitamin Supplement 10 ml/ Chromium/Copper/Manganese/Seleni/Zn 1 ml/Sodium Acetate 15 meq/ Calcium Gluconate 1 gm/ Potassium Chloride 15 meq/ Sodium Chloride 20 meq/ Amino Acids/Dextrose 1,044 mls @ 100 mls/hr IV .BY DURATION [facility] Sodium Acetate 15 meq/ Calcium Gluconate 1 gm/ Potassium Chloride 15 meq/ Sodium Chloride 20 meq/ Amino Acids/Dextrose 1,033 mls @ 100 mls/hr IV .BY DURATION [facility] Last Admin: 10/25/18 20:39 Dose: 100 mls/hr Documented by: Lidocaine HCl (.Xylocaine 1% Inj (10mg/Ml) For Iv Start) 0.1 ml INTRADERMA PER PROTOCOL PRN PRN Reason: IV Start Last Admin: 10/07/18 10:17 Dose: 0.1 ml Documented by: Miscellaneous Information (Potassium Per Protocol) 1 each MISCELLANE DAILY PRN; Protocol PRN Reason: Per Protocol Miscellaneous Information (Pharmacy To Dose Iv Vancomycin) 1 each MISCELLANE DIRECTED PRN PRN Reason: Per Protocol Naloxone HCl (Narcan) 0.2 mg IV Q2M PRN PRN Reason: Opioid Reversal Pantoprazole Sodium (Protonix) 40 mg IVP DAILY [facility] Last Admin: 10/25/18 08:26 Dose: 40 mg Documented by: Objective - Vital Signs Vital signs: Vital Signs Temp 98.4 F 10/25/18 12:00 Pulse 105 H 10/25/18 13:00 Resp 16 10/25/18 13:00 BP 118/73 10/25/18 13:00 Pulse Ox 99 10/25/18 13:00 Intake & Output 10/24/18 10/25/18 10/25/18 18:59 06:59 18:59 Intake Total 6378.825 1933.999 1500.093 Output Total 4935 359 4140 Balance -3228.729 1285.999 -2639.907 Weight 107.1 kg 107.1 kg Intake: IV 1470 1200 870 Desmopressin Acetate 25 50 mcg In Sodium Chloride 0. 9% 50 ml @ 200 mls/hr IVPB ONCE ONE Rx#: [id number] Mvi, Adult No.4 with Vit 0 K 10 ml Trace (Conc-1Ml/ Dose) 1 ml Sodium Acetate 15 meq Calcium Gluconate 1 gm Potassium Chloride 10 meq Sodium Chloride 2. 5MEQ/ml Vial 15 meq In Amino Acid 4.25%-D10w 1, 000 ml @ 100 mls/hr IV . BY DURATION [facility] Rx#: [id number] Normal Saline carrier 120 100 70 PPN 800 1100 700 Vancomycin 1,750 mg In 500 Sodium Chloride 0.9% 500 ml 500 ml @ 167 mls/hr IVPB ONCE ONE Rx#: [id number] cefTRIAXone 2 gm In 50 50 Sodium Chloride 0.9% 50 ml @ 100 mls/hr IVPB Q24HR [facility] Rx#:[id number] Intake, IV Titration 236.271 444.999 320.093 Amount Heparin Sod,Pork in 0.45% 250.000 250 NaCl 25,000 unit In 0.45 % NaCl 1 250ml.bag @ 18 UNITS/KG/HR 20.682 mls/hr IV .Q12H6M [facility] Rx#: [id number] Propofol 1,000 mg In 236.271 194.999 70.093 Empty Bag 1 bag @ Titrate IV .Q0M [facility] Rx#: [id number] Blood Product 310 Rc As-1 Unit 310 [id number] Output: Gastric Drainage 750 Urine 175 359 140 Hemodialysis 4000 4000 Estimated Blood Loss 10 Other: Voiding Method Indwelling Catheter Indwelling Catheter Indwelling Catheter # Bowel Movements 1 ABP, PAP, CO, CI - Last Documented Arterial Blood Pressure 145/62 - Exam PHYSICAL EXAMINATION: Patient is lying in the bed comfortably, no acute distress, awake alert and cannot communicate verbally... HEENT: Normocephalic. Neck is supple. Pupils reactive. Nostrils clear. Oral cavity is moist. Ears reveal no drainage. Neck reveals no JVD, carotid bruits, or thyromegaly. CHEST EXAMINATION: Trachea is central. Tracheostomy tube present. Symmetrical expansion. Bibasilar diminished air entry and crackles positive no wheezing.. CARDIAC: Normal S1, S2 with no gallops. No murmurs ABDOMEN: Soft. Nontender. PEG tube site intact. Bowel sounds normal. No organomegaly. No abdominal bruits. Extremities: Lateral lower exudate swelling and scrotal edema.. No clubbing or cyanosis Neurologically awake, alert and follows simple commands.. No gross focal d eficits noted. Skin: No rash . Multiple ecchymotic patches on the bilateral upper extremities.. Psychiatric: Coperative. Could not be assessed completely Musculoskeletal: No joint swelling or deformity. - Labs CBC & Chem 7: 10/25/18 12:42 10/25/18 05:07 Labs: Abnormal Lab Results - Last 24 Hours (Table) 10/11/18 10/22/18 10/22/18 Range/Units 11:56 15:21 15:21 RBC (4.30-5.90) m/uL Hgb (13.0-17.5) gm/dL Hct (39.0-53.0) % RDW (11.5-15.5) % APTT (22.0-30.0) sec Lupus Anticoag aPTT 48 H (<43) Sec(s) Dil Jaycob Viper Venom 62 H (<44) Sec(s) LA dRVVT Confirm Positive H (Negative) dRVVT 50:50 47 H (<44) Sec(s) Protein S Antigen 146 H (50 - 140) % Antithrombin III Activ 52 L (79-109) % Sodium (137-145) mmol/L Chloride (98-107) mmol/L BUN (9-20) mg/dL Creatinine (0.66-1.25) mg/dL Glucose (74-99) mg/dL POC Glucose (mg/dL) (75-99) mg/dL Calcium (8.4-10.2) mg/dL Phosphorus (2.5-4.5) mg/dL Albumin (3.5-5.0) g/dL Crossmatch See Detail 10/24/18 10/25/18 10/25/18 Range/Units 20:46 05:07 05:07 RBC 2.24 L (4.30-5.90) m/uL Hgb 6.5 L* (13.0-17.5) gm/dL Hct 20.7 L (39.0-53.0) % RDW 17.2 H (11.5-15.5) % APTT (22.0-30.0) sec Lupus Anticoag aPTT (<43) Sec(s) Dil Jaycob Viper Venom (<44) Sec(s) LA dRVVT Confirm (Negative) dRVVT 50:50 (<44) Sec(s) Protein S Antigen (50 - 140) % Antithrombin III Activ (79-109) % Sodium 127 L (137-145) mmol/L Chloride 94 L (98-107) mmol/L BUN 58 H (9-20) mg/dL Creatinine 4.38 H (0.66-1.25) mg/dL Glucose 469 H (74-99) mg/dL POC Glucose (mg/dL) 117 H (75-99) mg/dL Calcium 8.0 L (8.4-10.2) mg/dL Phosphorus 5.3 H (2.5-4.5) mg/dL Albumin 2.3 L (3.5-5.0) g/dL Crossmatch 10/25/18 10/25/18 10/25/18 Range/Units 05:07 06:43 07:33 RBC (4.30-5.90) m/uL Hgb (13.0-17.5) gm/dL Hct (39.0-53.0) % RDW (11.5-15.5) % APTT 36.7 H (22.0-30.0) sec Lupus Anticoag aPTT (<43) Sec(s) Dil Jaycob Viper Venom (<44) Sec(s) LA dRVVT Confirm (Negative) dRVVT 50:50 (<44) Sec(s) Protein S Antigen (50 - 140) % Antithrombin III Activ (79-109) % Sodium (137-145) mmol/L Chloride (98-107) mmol/L BUN (9-20) mg/dL Creatinine (0.66-1.25) mg/dL Glucose (74-99) mg/dL POC Glucose (mg/dL) 121 H (75-99) mg/dL Calcium (8.4-10.2) mg/dL Phosphorus (2.5-4.5) mg/dL Albumin (3.5-5.0) g/dL Crossmatch See Detail 10/25/18 Range/Units 12:38 RBC (4.30-5.90) m/uL Hgb (13.0-17.5) gm/dL Hct (39.0-53.0) % RDW (11.5-15.5) % APTT 122.4 H* (22.0-30.0) sec Lupus Anticoag aPTT (<43) Sec(s) Dil Jaycob Viper Venom (<44) Sec(s) LA dRVVT Confirm (Negative) dRVVT 50:50 (<44) Sec(s) Protein S Antigen (50 - 140) % Antithrombin III Activ (79-109) % Sodium (137-145) mmol/L Chloride (98-107) mmol/L BUN (9-20) mg/dL Creatinine (0.66-1.25) mg/dL Glucose (74-99) mg/dL POC Glucose (mg/dL) (75-99) mg/dL Calcium (8.4-10.2) mg/dL Phosphorus (2.5-4.5) mg/dL Albumin (3.5-5.0) g/dL Crossmatch Microbiology - Last 24 Hours (Table) 10/21/18 15:31 Anaerobic Culture - Final Leg - Left Anaerobic Gm Positive Bacill 10/21/18 23:49 Blood Culture - Preliminary Blood No Growth after 72 hours 10/22/18 23:24 Blood Culture - Preliminary Blood No Growth after 48 hours 10/22/18 22:50 Blood Culture - Preliminary Blood No Growth after 48 hours 10/23/18 15:12 Catheter Tip Culture - Preliminary Catheter Tip 10/23/18 11:15 Blood Culture - Preliminary Blood No Growth after 24 hours 10/23/18 11:20 Blood Culture - Preliminary Blood No Growth after 24 hours Assessment and Plan Assessment: Acute hypoxic respiratory failure secondary to ARDS and possible aspiration pneumonia. Status post tracheostomy and PEG tube placement. Status post aortofemoral bypass surgery on 10/07/2018 Severe peripheral vascular disease Acute kidney injury secondary to ATN and suspected contrast-induced. Requiring hemodialysis COPD Chronic back pain Paroxysmal atrial fibrillation Aortic dissection as noted on CT abdomen Morbid obesity with BMI 40.4 Plan: Patient is being continued on ventilator support. Status post tracheostomy active placement. Continue with antibiotics in the form of ceftriaxone. vancomycin discontinued since the blood cultures grew coagulase-negative staph aureus. Repeat blood cultures negative so far.. Patient is being continued on TPN. Hemodialysis as per nephrology. Patient is being followed by critical care, nephrology and ID. Prognosis remains guarded at this time. Possible transfer to [facility] early next week. Time with Patient: Greater than 30
[2018-10-26] MEDS: HEPARIN SOD,PORK IN 0.45% NACL 25,000 UNIT in 0.45% NACL 1 250ML.BAG IV SCH ×2 (02:38→21:52)
[2018-10-26] MEDS: HYDROmorphone 1 MG/ML 1 ML SYRINGE IVP PRN ×2 (05:14→20:03)
[2018-10-26 05:33] LABS: Anisocytosis Slight; HCT 22.5 % (39.0-53.0); HGB 7.3 gm/dL (13.0-17.5); Hypochromasia Slight; MCH 28.8 pg (25.0-35.0); MCHC 32.4 g/dL (31.0-37.0); MCV 89.1 fL (80.0-100.0); Mean Platelet Volume 8.4; Platelet Count 253 k/uL (150-450); RBC 2.52 m/uL (4.30-5.90); RDW 17.2 % (11.5-15.5); WBC 8.2 k/uL (3.8-10.6)
[2018-10-26 05:58] LABS: Calcium 8.2 mg/dL (8.4-10.2); Magnesium 1.9 mg/dL (1.6-2.3); Phosphorus 5.5 mg/dL (2.5-4.5); Potassium 3.7 mmol/L (3.5-5.1)
[2018-10-26 06:03] LABS: Vancomycin,Random 21.5 ug/mL
--- NOTE | 2018-10-26 06:16 | XR ---
EXAMINATION TYPE: XR chest 1V portable DATE OF EXAM: 10/26/2018 HISTORY: shortness of breath . REFERENCE: Previous study dated 10/25/2018. FINDINGS: There is a tracheostomy tube in place. Its tip overlies the tracheal air column in this sin gle frontal projection. There is a large-bore, double-lumen catheter in place via a right internal ju gular approach. Its tip is at the cavoatrial junction. Heart size upper limits of normal. I suspect small, bilateral effusions. There is minimal bibasilar a irspace disease, either representing atelectasis or pneumonia. The overall appearance is quite simila r to the previous study. IMPRESSION: NO SIGNIFICANT INTERVAL CHANGE IN THE APPEARANCE OF THE CHEST.
[2018-10-26] MEDS: HEPARIN SODIUM,PORCINE 5,000 UNIT/ML 1 ML VIAL IV PRN (06:41)
--- NOTE | 2018-10-26 08:14 | P.PN ---
Subjective Progress Note Date: 10/26/18 Seen and examined for the follow-up of acute kidney injury on hemodialysis. Nonoliguric with urine output of 750 ML's in the last 24 hours. Hemoglobin continues to stay low around 7.3. No nausea vomiting. Still on vent. Objective - Vital Signs Vital signs: Vital Signs Temp 99.6 F 10/26/18 04:00 Pulse 98 10/26/18 07:00 Resp 21 10/26/18 07:00 BP 121/63 10/26/18 07:00 Pulse Ox 98 10/26/18 07:00 Intake & Output 10/25/18 10/26/18 10/26/18 18:59 06:59 18:59 Intake Total 2266.308 1539.176 110 Output Total 4320 425 30 Balance -2053.692 1114.176 80 Weight 107.1 kg 110 kg Intake: IV 1530 1210 110 Desmopressin Acetate 25 50 mcg In Sodium Chloride 0. 9% 50 ml @ 200 mls/hr IVPB ONCE ONE Rx#: [id number] Mvi, Adult No.4 with Vit 0 K 10 ml Trace (Conc-1Ml/ Dose) 1 ml Sodium Acetate 15 meq Calcium Gluconate 1 gm Potassium Chloride 10 meq Sodium Chloride 2. 5MEQ/ml Vial 15 meq In Amino Acid 4.25%-D10w 1, 000 ml @ 100 mls/hr IV . BY DURATION [facility] Rx#: [id number] Normal Saline carrier 130 110 10 PPN 1300 1100 100 cefTRIAXone 2 gm In 50 Sodium Chloride 0.9% 50 ml @ 100 mls/hr IVPB Q24HR [facility] Rx#:[id number] Intake, IV Titration 116.308 329.176 Amount Heparin Sod,Pork in 0.45% 46.215 329.176 NaCl 25,000 unit In 0.45 % NaCl 1 250ml.bag @ 18 UNITS/KG/HR 20.682 mls/hr IV .Q12H6M [facility] Rx#: [id number] Propofol 1,000 mg In 70.093 Empty Bag 1 bag @ Titrate IV .Q0M [facility] Rx#: [id number] Blood Product 620 Rc As-1 Unit 310 [id number] Output: Urine 320 425 30 Hemodialysis 4000 Other: Voiding Method Indwelling Catheter Indwelling Catheter ABP, PAP, CO, CI - Last Documented Arterial Blood Pressure 145/62 - Exam No acute distress S1-S2 heard Bilateral air entry Abdomen distended Edema. - Labs CBC & Chem 7: 10/26/18 05:19 10/26/18 05:19 Labs: Abnormal Lab Results - Last 24 Hours (Table) 10/11/18 10/22/18 10/22/18 Range/Units 11:56 15:21 15:21 RBC (4.30-5.90) m/uL Hgb (13.0-17.5) gm/dL Hct (39.0-53.0) % RDW (11.5-15.5) % Lymphocytes # (1.0-4.8) k/uL APTT (22.0-30.0) sec Lupus Anticoag aPTT 48 H (<43) Sec(s) Dil Jaycob Viper Venom 62 H (<44) Sec(s) LA dRVVT Confirm Positive H (Negative) dRVVT 50:50 47 H (<44) Sec(s) Protein S Antigen 146 H (50 - 140) % Antithrombin III Activ 52 L (79-109) % Sodium (137-145) mmol/L BUN (9-20) mg/dL Creatinine (0.66-1.25) mg/dL Glucose (74-99) mg/dL Calcium (8.4-10.2) mg/dL Phosphorus (2.5-4.5) mg/dL Crossmatch See Detail 10/25/18 10/25/18 10/25/18 Range/Units 06:43 12:38 12:42 RBC 2.79 L (4.30-5.90) m/uL Hgb 8.0 L D (13.0-17.5) gm/dL Hct 24.8 L (39.0-53.0) % RDW 16.9 H (11.5-15.5) % Lymphocytes # 0.9 L (1.0-4.8) k/uL APTT 122.4 H* (22.0-30.0) sec Lupus Anticoag aPTT (<43) Sec(s) Dil Jaycob Viper Venom (<44) Sec(s) LA dRVVT Confirm (Negative) dRVVT 50:50 (<44) Sec(s) Protein S Antigen (50 - 140) % Antithrombin III Activ (79-109) % Sodium (137-145) mmol/L BUN (9-20) mg/dL Creatinine (0.66-1.25) mg/dL Glucose (74-99) mg/dL Calcium (8.4-10.2) mg/dL Phosphorus (2.5-4.5) mg/dL Crossmatch See Detail 10/25/18 10/26/18 10/26/18 Range/Units : 05: 05: RBC 2.52 L (4.30-5.90) m/uL Hgb 7.3 L (13.0-17.5) gm/dL Hct 22.5 L (39.0-53.0) % RDW 17.2 H (11.5-15.5) % Lymphocytes # (1.0-4.8) k/uL APTT 54.1 H (22.0-30.0) sec Lupus Anticoag aPTT (<43) Sec(s) Dil Jaycob Viper Venom (<44) Sec(s) LA dRVVT Confirm (Negative) dRVVT 50:50 (<44) Sec(s) Protein S Antigen (50 - 140) % Antithrombin III Activ (79-109) % Sodium 133 L (137-145) mmol/L BUN 66 H (9-20) mg/dL Creatinine 4.29 H (0.66-1.25) mg/dL Glucose 111 H (74-99) mg/dL Calcium 8.2 L (8.4-10.2) mg/dL Phosphorus 5.5 H (2.5-4.5) mg/dL Crossmatch 10/26/18 Range/Units 05:19 RBC (4.30-5.90) m/uL Hgb (13.0-17.5) gm/dL Hct (39.0-53.0) % RDW (11.5-15.5) % Lymphocytes # (1.0-4.8) k/uL APTT 44.8 H (22.0-30.0) sec Lupus Anticoag aPTT (<43) Sec(s) Dil Jaycob Viper Venom (<44) Sec(s) LA dRVVT Confirm (Negative) dRVVT 50:50 (<44) Sec(s) Protein S Antigen (50 - 140) % Antithrombin III Activ (79-109) % Sodium (137-145) mmol/L BUN (9-20) mg/dL Creatinine (0.66-1.25) mg/dL Glucose (74-99) mg/dL Calcium (8.4-10.2) mg/dL Phosphorus (2.5-4.5) mg/dL Crossmatch Microbiology - Last 24 Hours (Table) 10/21/18 23:49 Blood Culture - Preliminary Blood No Growth after 96 hours 10/22/18 23:24 Blood Culture - Preliminary Blood No Growth after 72 hours 10/22/18 22:50 Blood Culture - Preliminary Blood No Growth after 72 hours 10/21/18 15:31 Anaerobic Culture - Final Leg - Left 10/23/18 15:12 Catheter Tip Culture - Final Catheter Tip 10/23/18 11:15 Blood Culture - Preliminary Blood No Growth after 48 hours 10/23/18 11:20 Blood Culture - Preliminary Blood No Growth after 48 hours 10/21/18 15:31 Anaerobic Culture - Final Leg - Left Anaerobic Gm Positive Bacill Assessment and Plan Assessment: #1 nonoliguric acute kidney injury secondary to ischemic and toxic ATN from hypotension and contrast currently dialysis dependent. #2 Aortoiliac occlusive disease status post bypass with open thrombectomy #3 volume overload #4 A. fib with RVR #5 CKD stage III secondary to nephrosclerosis with a baseline creatinine of 1.3- 1.7 to per DL. #6 anemia rule out bleeding. #7 hyperphosphatemia secondary to acute kidney injury. Plan: #1 currently on daily dialysis for ultrafiltration. 4 L UF was planned today. #2 continue with Lasix for diuresis #3 avoid nephrotoxic agents and hypotensive episodes #4 maintain Vanco trough level less than 20 #5 plan dialysis again on Sunday based on volume status.
[2018-10-26 08:19] LABS: ABG Base Excess 0.3 mmol/L; ABG HCO3 25 mmol/L (21-25); ABG Oxygen Saturation 98.8 % (94-97); ABG PCO2 37 mmHg (35-45); ABG PH 7.44 (7.35-7.45); ABG PO2 134 mmHg (83-108); ABG TCO2 26 mmol/L (19-24); Allen Test Performed? Yes
[2018-10-26] MEDS: IPRATROPIUM-ALBUTEROL 3 ML NEB INHALATION SCH ×4 (08:32→19:33)
[2018-10-26] MEDS: PANTOPRAZOLE 40 MG/10 ML VIAL IVP SCH (08:38)
[2018-10-26] MEDS: FUROSEMIDE 10 MG/ML 10 ML VIAL IV SCH ×2 (08:39→20:01)
[2018-10-26] MEDS: CHLORHEXIDINE GLUCONATE 15 ML CUP MUCOUS MEM SCH ×2 (08:41→20:01)
[2018-10-26] MEDS: FENOFIBRATE 160 MG TAB PO SCH (08:41)
[2018-10-26] MEDS: GABAPENTIN 300 MG CAP PO SCH ×3 (08:41→20:02)
[2018-10-26] MEDS: AMIODARONE 200 MG TAB PO SCH ×2 (08:41→20:02)
[2018-10-26] MEDS: CALCIUM ACETATE 667 MG CAP PO SCH ×2 (08:41→16:48)
[2018-10-26] MEDS: ASPIRIN 81 MG PO SCH (08:41)
[2018-10-26] MEDS: COLLAGENASE 250 UNIT/GM OINTMENT 30 GM TUBE TOPICAL SCH (09:52)
[2018-10-26] MEDS: BISACODYL 10 MG SUPP RECTAL SCH (10:14)
--- NOTE | 2018-10-26 11:03 | P.PN ---
Subjective Progress Note Date: 10/26/18 Principal diagnosis: acute ventilator-dependent hypoxic respiratory failure secondary to aspiration pneumonia and ARDS. On 10/20/2018 of seeing this patient for a follow-up. The patient is sedated on 30 mics of propofol. He was able to come off sedation adequately yesterday as the patient became restless and they suggested a mechanical ventilator. This morning it is back on sedation. He was on a PEEP of 11 with an FiO2 of 40% and a rate of 400 and respiratory rate of 32. I realize that the patient ever pressure lower and he was sucking way higher tidal volumes as with provided to him through the mechanical ventilator. Based on that, switch this patient to a VC plus mode and increase the tidal volume to 500 and dropped a respiratory rate up to 24 and dropped PEEP down to 9 keeping the FiO2 at 40% and the chest x-ray shows improvement of breath and pulmonary infiltrates. The patient's airway pressure steadily on the decline. Lower lobe consolidation improving and the patient is currently on IV meropenem. He is on TPN for nutritional support. Abdomen is slightly distended and hypoactive bowel sounds. Orogastric tube is in place. Surgical abdominal wound site is dry clean and intact. The groin wounds are clean and intact. Pulses in the lower extremities are obtained and measured by Doppler. He has undergone 4 sessions of hemodialysis and the lacer ation was done yesterday without any complication with significant ultrafiltration. He is afebrile. He is hemodynamically stable on no pressors and both of vasopressin and levo fed has been discontinued. I am thinking and the patient will be a difficult wean and is reasonable to consider a PEG and trach special with above-mentioned medical problems and comorbidities encountered over the past 1 week. His white cell count is 17. Hemoglobin stable at 8.0. The patient remains on IV heparin. PH is 7.49 with a pCO2 of 38 and pO2 of 103. There is scrotal edema which is also improving. Reevaluated today on 10/21/2018, patient remains on mechanical ventilation, sedated, presently on assist control rate of 22, FiO2 of 45%, tidal volume of 500, and PEEP of 6. patient is actually on volume control plus mode of mechanical ventilation. Hence his tidal volume varies from breast of breath. I was able to drop the PEEP down to 6 today. Patient seems to be ventilating quite well. He is hemodynamically stable today, off all pressors, remains on antibiotics for left lower lobe consolidation and fever, he is on Merrem. Remains on TPN, and he may undergo tracheostomy and PEG tube placement today by Dr. rodriguez. However he is yet to have his dialysis this morning.WBC count is 15.8 hemoglobin is 7.7. ABG this morning showed a pO2 of 122 pCO2 of 37 pH of 7.46.worsening renal profile is noted today, BUN is 66 creatinine is 5.03, patient remains oliguric, roughly about 30 mL of urine per shift. Patient was reevaluated today on , remains on mechanical ventilation. Patient was reevaluated today on 10/22/2018, remains on mechanical ventilation, he is now on assist control rate of 22, tidal volume of 500/volume control plus, FiO2 45%, PEEP of 6. Remains on propofol at 20 mcg/kg/m, patient is arousable, seems to follow simple instructions, presently on dialysis. Patient is van eduled to undergo tracheostomy and possible PEG tube placement today. Chest x- ray showed diffuse interstitial pattern with bilateral small effusions greater on the left. The findings are suggestive of resolving ARDS, doubt cardiogenic pulmonary edema. Although the possibility of interstitial edema is not entirely ruled out considering the patient is oliguric, and he is requiring daily hemodialysis at this point. Labs today showed hemoglobin of 7.4 WBC count of 12.9. ABG showed a pO2 of 96 pCO2 of 36 pH of 7.48 Reevaluated today on 10/23/2018, patient remains on mechanical ventilation, und erwent tracheostomy today, but no PEG tube was placed. Patient remains on same ventilator settings, assist control rate of 22, tidal volume 500+ FiO2 45% PEEP 6. Patient had an uneventful tracheostomy however there is evidence of some leak and volume loss around the tracheostomy site. And what is more concerning today is the fact that the patient had multiple positive blood cultures for what seems to be staph epidermidis, and I believe the patient may have catheter related sepsis from his catheters including his central line and arterial line. Most likely it is his left subclavian central line which would have to be removed today, and the tip will be cultured. I have instructed the nurses to call for a midline placement in the meantime the patient remains on antibiotics in the form of vancomycin. After 24 or 48 hours, decline may have to be placed. Patient remains sedated, he is on propofol, and I plan to taper the propofol down, assess his mental status. ABG today showed a pO2 of 110 pCO2 of 36 pH of 7.46 electrolytes were noted renal profile remains abnormal sodium is 129. Patient remains on dialysis and he is scheduled to undergo dialysis again today. Chest x-ray showed mild interstitial edema. And bibasilar atelectasis. Reevaluated today on 10/24/2018, patient remains on mechanical ventilation, he underwent a weaning trial with a pressure support of 8 and CPAP yesterday, tolerated at least a good 6 hours of weaning. However he was noted after 6 hours to become more agitated, restless, and tachycardic as well as tachypneic. Hence patient is back on assist control mode of mechanical ventilation, and patient is being considered for possible PEG tube placement today. His central line was discontinued yesterday and cultured, patient is now on vancomycin and Rocephin, evaluated by infectious disease again, and agreed with the plan to discontinue central line, patient is now being managed mostly with peripheral lines, and he will be on peripheral TPN. I plan to continue weaning trial today with a pressure support and CPAP, however if the patient is scheduled for a PEG tube placement, we will delay until the PEG tube is placed. Blood cultures from yesterday are pending. The tip of the catheter culture is pending. Patient will eventually need a PICC line placement hopefully in the next 24 hours. That means he would have received a good course of IV antibiotics for staph epidermidis catheter sepsis 4-48 hours before we proceed with another central line placement/PICC line. Patient is being dialyzed today, he is hemodynamically stable, not requiring any pressors. His ventilator settings are tidal volume of 500 assist control rate of 20 to FiO2 of 45% and PEEP is 6. In spite of being on a low dose of propofol, patient seems to be comprehending, and follows simple instructions. Reevaluated today on 10/25/2018, remains on mechanical ventilation, awake, extremely weak, follows very simple instructions. His ventilator settings are assist control rate of 20, volume 450 FiO2 50% PEEP of 5. Remains on hemodialysis on a daily basis, patient is presently off pressors, urine output is gradually improving about 25-50 mL per hour. Patient is status post tracheostomy on October 22. And he is status post PEG tube placement on October 24. Patient remains quite edematous. Awake, follows simple instructions, and today I plan to give him a trial of pressure support and CPAP again. However his pressure support will be up to 10 and while I was at bedside, I noted that the patient is doing quite well with pressure support of 10, tidal volumes are in the 800-1000 range. And he seems to be comfortable on a pressure support with CPAP chest x-ray and labs were reviewed. Minimal interstitial edema noted on the chest x-ray. Reevaluated today on 10/26/2018, remains on mechanical ventilation, tolerated pressure support and CPAP was yesterday, and overnight he was placed on assist control mode of mechanical ventilation, and today I plan to place him back on pressure support of 8 and CPAP, may even consider a trach collar weaning if tolerated. Patient is status post PEG tube placement yesterday, and his TPN was switched to enteral feeding today. His ventilator settings this morning are basically the same as above. But I went ahead and place him on a pressure support of 8 and CPAP. FiO2 is 40%. Patient is being dialyzed today. He is on heparin, not requiring any pressors, he is in normal sinus rhythm, and hemodynamically stable. Patient opens eyes, follows very simple instructions, but seems to be generally weak, patient may have some component of critical illness polyneuropathy. Objective - Vital Signs Vital signs: Vital Signs Temp 99.6 F 10/26/18 04:00 Pulse 99 10/26/18 10:00 Resp 14 10/26/18 10:00 BP 144/76 10/26/18 10:00 Pulse Ox 100 10/26/18 10:00 Intake & Output 10/25/18 10/26/18 10/26/18 18:59 06:59 18:59 Intake Total 2266.308 1539.176 330 Output Total 4320 425 110 Balance -2053.692 1114.176 220 Weight 107.1 kg 110 kg Intake: IV 1530 1210 330 Desmopressin Acetate 25 50 mcg In Sodium Chloride 0. 9% 50 ml @ 200 mls/hr IVPB ONCE ONE Rx#: [id number] Mvi, Adult No.4 with Vit 0 K 10 ml Trace (Conc-1Ml/ Dose) 1 ml Sodium Acetate 15 meq Calcium Gluconate 1 gm Potassium Chloride 10 meq Sodium Chloride 2. 5MEQ/ml Vial 15 meq In Amino Acid 4.25%-D10w 1, 000 ml @ 100 mls/hr IV . BY DURATION VAN Rx#: [id number] Normal Saline carrier 130 110 30 PPN 1300 1100 300 cefTRIAXone 2 gm In 50 Sodium Chloride 0.9% 50 ml @ 100 mls/hr IVPB Q24HR VAN Rx#:[id number] Intake, IV Titration 116.308 329.176 Amount Heparin Sod,Pork in 0.45% 46.215 329.176 NaCl 25,000 unit In 0.45 % NaCl 1 250ml.bag @ 18 UNITS/KG/HR 20.682 mls/hr IV .Q12H6M VAN Rx#: [id number] Propofol 1,000 mg In 70.093 Empty Bag 1 bag @ Titrate IV .Q0M VAN Rx#: [id number] Blood Product 620 Rc As-1 Unit 310 [id number] Output: Urine 320 425 110 Hemodialysis 4000 Other: Voiding Method Indwelling Catheter Indwelling Catheter ABP, PAP, CO, CI - Last Documented Arterial Blood Pressure 145/62 - Exam GENERAL EXAM: revealed a 53-year-old white male on mechanical ventilation, awake, in no distress HEAD: Normocephalic/atraumatic. EENT: PERRLA, EOMI, tracheostomy seems to be intact no neck masses. CHEST: No chest wall deformity. Symmetrical expansion. LUNGS:minimal fine crackles at the bases. No rhonchi and no wheezes. CVS: normal S1 and S2, no gallops. No murmur. ABDOMEN:soft nontender no megaly. Diminished bowel sounds. Midabdominal and Bilateral groin incisions, left groin incision with wound VAC in place. PEG tube is noted in place for Significant scrotal swelling is noted EXTREMITIES: Continues to have sterile dressing on his bilateral lower extremities once, pulses are extremely diminished felt only by Doppler. Feet are both warm. MUSCULOSKELETAL: Patient follows simple instructions, move upper and lower extremities upon command. SKIN: As noted under extremities. CENTRAL NERVOUS SYSTEM: Arousable, following simple instructions. - Labs CBC & Chem 7: 10/26/18 05:19 10/26/18 05:19 Labs: Abnormal Lab Results - Last 24 Hours (Table) 10/22/18 10/25/18 10/25/18 Range/Units 15:21 12:38 12:42 RBC 2.79 L (4.30-5.90) m/uL Hgb 8.0 L D (13.0-17.5) gm/dL Hct 24.8 L (39.0-53.0) % RDW 16.9 H (11.5-15.5) % Lymphocytes # 0.9 L (1.0-4.8) k/uL APTT 122.4 H* (22.0-30.0) sec Antithrombin III Activ 52 L (79-109) % ABG pO2 (83-108) mmHg ABG Total CO2 (19-24) mmol/L ABG O2 Saturation (94-97) % Sodium (137-145) mmol/L BUN (9-20) mg/dL Creatinine (0.66-1.25) mg/dL Glucose (74-99) mg/dL Calcium (8.4-10.2) mg/dL Phosphorus (2.5-4.5) mg/dL 10/25/18 10/26/18 10/26/18 Range/Units 19:15 05: 05:19 RBC 2.52 L (4.30-5.90) m/uL Hgb 7.3 L (13.0-17.5) gm/dL Hct 22.5 L (39.0-53.0) % RDW 17.2 H (11.5-15.5) % Lymphocytes # (1.0-4.8) k/uL APTT 54.1 H (22.0-30.0) sec Antithrombin III Activ (79-109) % ABG pO2 (83-108) mmHg ABG Total CO2 (19-24) mmol/L ABG O2 Saturation (94-97) % Sodium 133 L (137-145) mmol/L BUN 66 H (9-20) mg/dL Creatinine 4.29 H (0.66-1.25) mg/dL Glucose 111 H (74-99) mg/dL Calcium 8.2 L (8.4-10.2) mg/dL Phosphorus 5.5 H (2.5-4.5) mg/dL 10/26/18 10/26/18 Range/Units 05:19 08:15 RBC (4.30-5.90) m/uL Hgb (13.0-17.5) gm/dL Hct (39.0-53.0) % RDW (11.5-15.5) % Lymphocytes # (1.0-4.8) k/uL APTT 44.8 H (22.0-30.0) sec Antithrombin III Activ (79-109) % ABG pO2 134 H (83-108) mmHg ABG Total CO2 26 H (19-24) mmol/L ABG O2 Saturation 98.8 H (94-97) % Sodium (137-145) mmol/L BUN (9-20) mg/dL Creatinine (0.66-1.25) mg/dL Glucose (74-99) mg/dL Calcium (8.4-10.2) mg/dL Phosphorus (2.5-4.5) mg/dL Microbiology - Last 24 Hours (Table) 10/21/18 23:49 Blood Culture - Preliminary Blood No Growth after 96 hours 10/22/18 23:24 Blood Culture - Preliminary Blood No Growth after 72 hours 10/22/18 22:50 Blood Culture - Preliminary Blood No Growth after 72 hours 10/21/18 15:31 Anaerobic Culture - Final Leg - Left 10/23/18 15:12 Catheter Tip Culture - Final Catheter Tip 10/23/18 11:15 Blood Culture - Preliminary Blood No Growth after 48 hours 10/23/18 11:20 Blood Culture - Preliminary Blood No Growth after 48 hours Assessment and Plan Assessment: impression: 1 acute ventilator-dependent hypoxic respiratory failure secondary to pneumonia and ARDS. 2 peripheral vessel occlusive disease, status post aortobifemoral bypass surgery on 11/03/2018, with complicated course complicated by pneumonia and ARDS acute kidney injury 3 acute ischemic limbs postop requiring emergent thrombectomy on the right on 10/11/2018 and on the left on 10/23/2018. 4 acute septic shock is likely based on the fact that the patient required significant pressors at one point. However presently resolved. He is now hemodynamically stable. 5 acute kidney injury/acute tubular necrosis secondary to sepsis. Patient remains on hemodialysis. Has been receiving dialysis on a daily basis. 6 aortic dissection as noted on CT of the abdomen 7 chronic back pain 8 obesity/BMI of 39.3 9 deep tissue injury to his left heel 10 paroxysmal atrial fibrillation 11 status post tracheostomy and dialysis catheter placement on 10/22/2018. 12 status post PEG tube placement on 10/24/2018 12 strongly suspect catheter related sepsis from central line patient had multiple positive blood culture for staph epidermidis. Follow-up blood cultures after October 22 have been negative. No need to remove his dialysis catheter. 13 suspected critical illness polyneuropathy and profound weakness. Patient will eventually require significant and long time of rehabilitation. recommendation: Continue ventilatory support, nutritional support, enteral feeding via PEG tube.. antibiotics, hemodialysis, , Central line tip culture has been negative. Patient will remain on vancomycin, will continue daily trials of weaning with a pressure support and CPAP, may even consider trach collar weaning. Again overall prognosis remains extremely poor and guarded. Patient will definitely need physical therapy and they were consulted already. Critical care time is 34 minutes Time with Patient: Greater than 30
[2018-10-26 11:36] LABS: Anisocytosis Slight; Basophils % (A) 0 %; Eosinophils # (A) 0.3 k/uL (0-0.7); Eosinophils % (A) 4 %; HCT 24.4 % (39.0-53.0); HGB 7.9 gm/dL (13.0-17.5); Lymphocytes % (A) 12 %; MCH 28.6 pg (25.0-35.0); MCHC 32.2 g/dL (31.0-37.0); MCV 88.7 fL (80.0-100.0); Mean Platelet Volume 7.8; Monocytes # (A) 0.5 k/uL (0-1.0); Monocytes % (A) 7 %; Neutrophils % (A) 74 %; Platelet Count 235 k/uL (150-450); RBC 2.75 m/uL (4.30-5.90); RDW 16.3 % (11.5-15.5); WBC 8.1 k/uL (3.8-10.6)
[2018-10-26 13:37] LABS: Fibrinogen Antigen 454 mg/dL (180-350)
[2018-10-26] MEDS: NOREPINEPHRINE 32 MG in SODIUM CHLORIDE 0.9% 218 ML IV SCH (14:47)
--- NOTE | 2018-10-26 19:08 | P.PN ---
Subjective Progress Note Date: 10/26/18 Principal diagnosis: Acute hypoxic respiratory failure secondary to aspiration pneumonia and ARDS Status post Aorto- femoral bypass surgery Mr. Agarwal is a 52-year-old male who underwent aortofemoral bypass graft on 10/07/2018 and later his course was complicated by an acute hypoxemic respiratory failure, aspiration pneumonia and ARDS. Patient also developed acute on chronic kidney failure secondary to ATN and contrast nephropathy. He is currently on hemodialysis. The patient had a trach and PEG tube placement done recently. Patient's mentation is slowly improving. On 10/26/2018 - patient is in the ICU. He has been off of all sedation . He is awake but cannot communicate because of tracheostomy. Patient had a PEG tube placed on the and that is small amount of bleeding at the PEG site insertion. No acute events reported by nursing staff overnight. Patient is currently on ceftriaxone. Chest x-ray showing improvement of the left base laterally disease. Patient cannot communicate but on asking him if he is any discomfort he nods his head. Does not look like he is in any kind of distress. Patient's medications and labs have been reviewed. Active Medications Albuterol/Ipratropium (Duoneb 0.5 Mg-3 Mg/3 Ml Soln) 3 ml INHALATION RT-QID [facility] Last Admin: 10/26/18 15:43 Dose: 3 ml Documented by: Albuterol/Ipratropium (Duoneb 0.5 Mg-3 Mg/3 Ml Soln) 3 ml INHALATION RT-Q2H PRN PRN Reason: Shortness Of Breath Or Wheezing Last Admin: 10/19/18 23:20 Dose: 3 ml Documented by: Amiodarone HCl (Cordarone) 200 mg PO BID [facility] Last Admin: 10/26/18 08:41 Dose: 200 mg Documented by: Aspirin (Aspirin) 81 mg PO DAILY [facility] Last Admin: 10/26/18 08:41 Dose: 81 mg Documented by: Bisacodyl (Dulcolax) 10 mg RECTAL DAILY [facility] Last Admin: 10/26/18 10:14 Dose: 10 mg Documented by: Calcium Acetate (Phoslo) 667 mg PO BID-W/MEALS [facility] Last Admin: 10/26/18 16:48 Dose: 667 mg Documented by: Chlorhexidine Gluconate (Peridex) 15 ml MUCOUS MEM BID [facility] Last Admin: 10/26/18 08:41 Dose: 15 ml Documented by: Collagenase (Santyl) 1 applic TOPICAL DAILY [facility] Last Admin: 10/26/18 09:52 Dose: 1 applic Documented by: Darbepoetin Maikel (Aranesp) 40 mcg SQ Q7D [facility] Last Admin: 10/22/18 14:38 Dose: 40 mcg Documented by: Fenofibrate (Lofibra) 160 mg PO DAILY [facility] Last Admin: 10/26/18 08:41 Dose: 160 mg Documented by: Furosemide (Lasix) 80 mg IV Q12HR [facility] Last Admin: 10/26/18 08:39 Dose: 80 mg Documented by: Gabapentin (Neurontin) 300 mg PO TID [facility] Last Admin: 10/26/18 16:48 Dose: 300 mg Documented by: Heparin Sodium (Porcine) (Heparin) 0 unit IV PER PROTOCOL PRN; Protocol PRN Reason: Low PTT Last Admin: 10/26/18 06:41 Dose: 4,400 unit Documented by: Hydromorphone HCl (Dilaudid) 1 mg IVP Q4HR PRN PRN Reason: pain Last Admin: 10/26/18 05:14 Dose: 1 mg Documented by: Propofol 1,000 mg/ IV Solution 100 mls @ 0 mls/hr IV .Q0M [facility]; Protocol Last Titration: 10/25/18 08:30 Dose: 0 mcg/kg/min, 0 mls/hr Documented by: Norepinephrine Bitartrate 32 (mg/ Sodium Chloride) 250 mls @ 2.693 mls/hr IV .Q24H [facility]; Protocol Last Admin: 10/26/18 14:47 Dose: Not Given Documented by: Heparin Sodium/Sodium Chloride (25,000 unit/ Sodium Chloride) 250 mls @ 20.682 mls/hr IV .Q12H6M [facility]; Protocol Last Titration: 10/26/18 17:30 Dose: 18 units/kg/hr, 20.682 mls/hr Documented by: Ceftriaxone Sodium 2 gm/ (Sodium Chloride) 50 mls @ 100 mls/hr IVPB Q24HR [facility] Last Admin: 10/26/18 09:52 Dose: 100 mls/hr Documented by: Parenteral Vitamin Supplement 10 ml/ Chromium/Copper/Manganese/Seleni/Zn 1 ml/Sodium Acetate 15 meq/ Calcium Gluconate 1 gm/ Potassium Chloride 15 meq/ Sodium Chloride 20 meq/ Amino Acids/Dextrose 1,044 mls @ 100 mls/hr IV .BY DURATION [facility] Last Admin: 10/26/18 06:43 Dose: 100 mls/hr Documented by: Sodium Acetate 15 meq/ Calcium Gluconate 1 gm/ Potassium Chloride 15 meq/ Sodium Chloride 20 meq/ Amino Acids/Dextrose 1,033 mls @ 100 mls/hr IV .BY DURATION [facility] Last Admin: 10/26/18 18:42 Dose: 100 mls/hr Documented by: Vancomycin HCl 1,750 mg/ (Sodium Chloride) 500 mls @ 167 mls/hr IVPB ONCE ONE Stop: 10/26/18 23:59 Lidocaine HCl (.Xylocaine 1% Inj (10mg/Ml) For Iv Start) 0.1 ml INTRADERMA PER PROTOCOL PRN PRN Reason: IV Start Last Admin: 10/07/18 10:17 Dose: 0.1 ml Documented by: Miscellaneous Information (Potassium Per Protocol) 1 each MISCELLANE DAILY PRN; Protocol PRN Reason: Per Protocol Miscellaneous Information (Pharmacy To Dose Iv Vancomycin) 1 each MISCELLANE DIRECTED PRN PRN Reason: Per Protocol Naloxone HCl (Narcan) 0.2 mg IV Q2M PRN PRN Reason: Opioid Reversal Pantoprazole Sodium (Protonix) 40 mg IVP DAILY [facility] Last Admin: 10/26/18 08:38 Dose: 40 mg Documented by: Objective - Vital Signs Vital signs: Vital Signs Temp 98.3 F 10/26/18 14:00 Pulse 105 H 10/26/18 18:00 Resp 18 10/26/18 18:00 BP 136/65 10/26/18 18:00 Pulse Ox 97 10/26/18 18:00 Intake & Output 10/26/18 10/26/18 10/27/18 06:59 18:59 06:59 Intake Total 2572.176 1394.129 Output Total 425 4403 Balance 2147.176 -3008.871 Weight 110 kg Intake: IV 1210 1280 Normal Saline carrier 110 130 PPN 1100 1150 Intake, IV Titration 1362.176 104.129 Amount Heparin Sod,Pork in 0.45% 329.176 104.129 NaCl 25,000 unit In 0.45 % NaCl 1 250ml.bag @ 18 UNITS/KG/HR 20.682 mls/hr IV .Q12H6M [facility] Rx#: [id number] Sodium Acetate 15 meq 1033 Calcium Gluconate 1 gm Potassium Chloride 15 meq Sodium Chloride 2.5MEQ/ ml Vial 20 meq In Amino Acid 4.25%-D10w 1,000 ml @ 100 mls/hr IV .BY DURATION [facility] Rx#: [id number] Tube Feeding 10 Output: Urine 425 403 Hemodialysis 4000 Other: Voiding Method Indwelling Catheter Indwelling Catheter # Bowel Movements 1 ABP, PAP, CO, CI - Last Documented Arterial Blood Pressure 145/62 - Exam PHYSICAL EXAMINATION: Patient is lying in the bed comfortably, no acute distress, awake alert and cannot communicate verbally... HEENT: Normocephalic. Neck is supple. Pupils reactive. Nostrils clear. Oral cavity is moist. Ears reveal no drainage. CHEST EXAMINATION: Trachea is central. Tracheostomy tube present. No wheezes. Few crackles at the lower lung bases CARDIAC: Normal S1, S2 with no gallops. No murmurs ABDOMEN: Soft. Nontender. PEG tube site intact. Bowel sounds normal. No organomegaly. No abdominal bruits. Extremities: Bilateral pitting edema. Mild scrotal edema. Neurologically awake, alert and follows simple commands.. No gross focal deficits noted. Skin: . Multiple ecchymotic patches on the bilateral upper extremities.. Psychiatric: Coperative. Could not be assessed completely Musculoskeletal: No joint swelling or deformity. - Labs CBC & Chem 7: 10/26/18 11:18 10/26/18 05:19 Labs: Abnormal Lab Results - Last 24 Hours (Table) 10/22/18 10/25/18 10/26/18 Range/Units 15:21 19:15 05:19 RBC 2.52 L (4.30-5.90) m/uL Hgb 7.3 L (13.0-17.5) gm/dL Hct 22.5 L (39.0-53.0) % RDW 17.2 H (11.5-15.5) % APTT 54.1 H (22.0-30.0) sec Fibrinogen Antigen 454 H (180-350) mg/dL ABG pO2 (83-108) mmHg ABG Total CO2 (19-24) mmol/L ABG O2 Saturation (94-97) % Sodium (137-145) mmol/L BUN (9-20) mg/dL Creatinine (0.66-1.25) mg/dL Glucose (74-99) mg/dL Calcium (8.4-10.2) mg/dL Phosphorus (2.5-4.5) mg/dL 10/26/18 10/26/18 10/26/18 Range/Units 05:19 05:19 08:15 RBC (4.30-5.90) m/uL Hgb (13.0-17.5) gm/dL Hct (39.0-53.0) % RDW (11.5-15.5) % APTT 44.8 H (22.0-30.0) sec Fibrinogen Antigen (180-350) mg/dL ABG pO2 134 H (83-108) mmHg ABG Total CO2 26 H (19-24) mmol/L ABG O2 Saturation 98.8 H (94-97) % Sodium 133 L (137-145) mmol/L BUN 66 H (9-20) mg/dL Creatinine 4.29 H (0.66-1.25) mg/dL Glucose 111 H (74-99) mg/dL Calcium 8.2 L (8.4-10.2) mg/dL Phosphorus 5.5 H (2.5-4.5) mg/dL 10/26/18 10/26/18 Range/Units 11:09 11:18 RBC 2.75 L (4.30-5.90) m/uL Hgb 7.9 L (13.0-17.5) gm/dL Hct 24.4 L (39.0-53.0) % RDW 16.3 H (11.5-15.5) % APTT 57.0 H (22.0-30.0) sec Fibrinogen Antigen (180-350) mg/dL ABG pO2 (83-108) mmHg ABG Total CO2 (19-24) mmol/L ABG O2 Saturation (94-97) % Sodium (137-145) mmol/L BUN (9-20) mg/dL Creatinine (0.66-1.25) mg/dL Glucose (74-99) mg/dL Calcium (8.4-10.2) mg/dL Phosphorus (2.5-4.5) mg/dL Microbiology - Last 24 Hours (Table) 10/23/18 11:15 Blood Culture - Preliminary Blood No Growth after 72 hours 10/23/18 11:20 Blood Culture - Preliminary Blood No Growth after 72 hours 10/21/18 23:49 Blood Culture - Preliminary Blood No Growth after 96 hours 10/22/18 23:24 Blood Culture - Preliminary Blood No Growth after 72 hours 10/22/18 22:50 Blood Culture - Preliminary Blood No Growth after 72 hours 10/21/18 15:31 Anaerobic Culture - Final Leg - Left 10/23/18 15:12 Catheter Tip Culture - Final Catheter Tip Assessment and Plan Assessment: ASSESSMENT Acute hypoxic respiratory failure secondary to ARDS and possible aspiration pneumonia. Status post tracheostomy and PEG tube placement. Status post aortofemoral bypass surgery on 10/07/2018 Severe peripheral vascular disease Acute kidney injury secondary to ATN and suspected contrast-induced. Requiring hemodialysis COPD Chronic back pain Paroxysmal atrial fibrillation Aortic dissection as noted on CT abdomen Morbid obesity with BMI 40.4 PLAN: Patient continues to remain on mechanical ventilation. As the patient received PEG tube his nutrition from TPN will be switched to PEG tube feeds. Nephrology on board and following the patient for hemodialysis. Continue antibiotics in the form of ceftriaxone. Overall prognosis remains guarded.
[2018-10-26] MEDS ORDERED: VANCOMYCIN 1,750 MG in SODIUM CHLORIDE 0.9% 500 ML 500 ML IVPB ONE (21:00)
[2018-10-27] MEDS: HEPARIN SODIUM,PORCINE 5,000 UNIT/ML 1 ML VIAL IV PRN (00:24)
[2018-10-27] MEDS: HYDROmorphone 1 MG/ML 1 ML SYRINGE IVP PRN ×3 (01:12→15:54)
[2018-10-27 03:11] LABS: Glucose,Whole Blood 113 mg/dL (75-99)
[2018-10-27 04:15] LABS: Glucose,Whole Blood 100 mg/dL (75-99)
[2018-10-27 05:27] LABS: Glucose,Whole Blood 98 mg/dL (75-99)
[2018-10-27 06:27] LABS: Anisocytosis Slight; Basophils # (A) 0.1 k/uL (0-0.2); Basophils % (A) 1 %; Eosinophils # (A) 0.3 k/uL (0-0.7); Eosinophils % (A) 3 %; HCT 21.6 % (39.0-53.0); HGB 7.2 gm/dL (13.0-17.5); Hypochromasia Slight; Lymphocytes % (A) 11 %; MCH 29.3 pg (25.0-35.0); MCHC 33.2 g/dL (31.0-37.0); MCV 88.3 fL (80.0-100.0); Monocytes # (A) 0.5 k/uL (0-1.0); Monocytes % (A) 6 %; Neutrophils # (A) 6.4 k/uL (1.3-7.7); Neutrophils % (A) 75 %; Platelet Count 229 k/uL (150-450); RBC 2.44 m/uL (4.30-5.90); RDW 16.4 % (11.5-15.5); WBC 8.5 k/uL (3.8-10.6)
[2018-10-27] MEDS: IPRATROPIUM-ALBUTEROL 3 ML NEB INHALATION SCH ×4 (06:53→19:22)
[2018-10-27 06:59] LABS: Magnesium 1.9 mg/dL (1.6-2.3); Phosphorus 4.7 mg/dL (2.5-4.5); Potassium 3.8 mmol/L (3.5-5.1)
[2018-10-27] MEDS: PANTOPRAZOLE 40 MG/10 ML VIAL IVP SCH (08:03)
[2018-10-27] MEDS: ASPIRIN 81 MG PO SCH (08:04)
[2018-10-27] MEDS: FENOFIBRATE 160 MG TAB PO SCH (08:04)
[2018-10-27] MEDS: BISACODYL 10 MG SUPP RECTAL SCH (08:04)
[2018-10-27] MEDS: FUROSEMIDE 10 MG/ML 10 ML VIAL IV SCH ×2 (08:04→20:30)
[2018-10-27] MEDS: AMIODARONE 200 MG TAB PO SCH ×2 (08:04→20:30)
[2018-10-27] MEDS: GABAPENTIN 300 MG CAP PO SCH ×3 (08:04→20:30)
[2018-10-27] MEDS: CALCIUM ACETATE 667 MG CAP PO SCH ×2 (08:04→16:39)
[2018-10-27] MEDS: COLLAGENASE 250 UNIT/GM OINTMENT 30 GM TUBE TOPICAL SCH (09:58)
[2018-10-27] MEDS: CHLORHEXIDINE GLUCONATE 15 ML CUP MUCOUS MEM SCH (09:58)
--- NOTE | 2018-10-27 11:26 | P.PN ---
Subjective Progress Note Date: 10/27/18 Seen and examined for the follow-up of acute kidney injury on hemodialysis. Nonoliguric with urine output of 1100 ML's in the last 24 hours. Currently making around 100 and hour since morning. Off went on 35% oxygen through trach collar. Objective - Vital Signs Vital signs: Vital Signs Temp 99.9 F H 10/27/18 08:00 Pulse 105 H 10/27/18 11:00 Resp 12 10/27/18 11:00 BP 142/79 10/27/18 11:00 Pulse Ox 97 10/27/18 11:00 Intake & Output 10/26/18 10/27/18 10/27/18 18:59 06:59 18:59 Intake Total 3719.570 5293.237 175 Output Total 4403 695 285 Balance -3008.871 562.237 -110 Weight 106.3 kg Intake: IV 1280 810 40 Normal Saline carrier 130 110 40 PPN 1150 700 Intake, IV Titration 104.129 117.237 Amount Heparin Sod,Pork in 0.45% 104.129 117.237 NaCl 25,000 unit In 0.45 % NaCl 1 250ml.bag @ 18 UNITS/KG/HR 20.682 mls/hr IV .Q12H6M [facility] Rx#: [id number] Tube Feeding 10 240 105 Other 90 30 Output: Urine 403 695 285 Hemodialysis 4000 Other: Voiding Method Indwelling Catheter Indwelling Catheter Indwelling Catheter # Bowel Movements 1 ABP, PAP, CO, CI - Last Documented Arterial Blood Pressure 145/62 - Exam No acute distress S1-S2 heard Bilateral air entry Abdomen distended Edema. - Labs CBC & Chem 7: 10/27/18 06:14 10/27/18 06:14 Labs: Abnormal Lab Results - Last 24 Hours (Table) 10/22/18 10/26/18 10/26/18 Range/Units 15:21 11:09 11:18 RBC 2.75 L (4.30-5.90) m/uL Hgb 7.9 L (13.0-17.5) gm/dL Hct 24.4 L (39.0-53.0) % RDW 16.3 H (11.5-15.5) % APTT 57.0 H (22.0-30.0) sec Fibrinogen Antigen 454 H (180-350) mg/dL BUN (9-20) mg/dL Creatinine (0.66-1.25) mg/dL POC Glucose (mg/dL) (75-99) mg/dL Phosphorus (2.5-4.5) mg/dL 10/26/18 10/27/18 10/27/18 Range/Units 23:22 03:09 04:14 RBC (4.30-5.90) m/uL Hgb (13.0-17.5) gm/dL Hct (39.0-53.0) % RDW (11.5-15.5) % APTT 43.5 H (22.0-30.0) sec Fibrinogen Antigen (180-350) mg/dL BUN (9-20) mg/dL Creatinine (0.66-1.25) mg/dL POC Glucose (mg/dL) 113 H 100 H (75-99) mg/dL Phosphorus (2.5-4.5) mg/dL 10/27/18 10/27/18 10/27/18 Range/Units 06:14 06:14 06:14 RBC 2.44 L (4.30-5.90) m/uL Hgb 7.2 L (13.0-17.5) gm/dL Hct 21.6 L (39.0-53.0) % RDW 16.4 H (11.5-15.5) % APTT 73.3 H (22.0-30.0) sec Fibrinogen Antigen (180-350) mg/dL BUN 68 H (9-20) mg/dL Creatinine 4.59 H (0.66-1.25) mg/dL POC Glucose (mg/dL) (75-99) mg/dL Phosphorus 4.7 H (2.5-4.5) mg/dL Microbiology - Last 24 Hours (Table) 10/21/18 23:49 Blood Culture - Preliminary Blood No Growth after 120 hours 10/22/18 23:24 Blood Culture - Preliminary Blood No Growth after 96 hours 10/22/18 22:50 Blood Culture - Preliminary Blood No Growth after 96 hours 10/23/18 11:15 Blood Culture - Preliminary Blood No Growth after 72 hours 10/23/18 11:20 Blood Culture - Preliminary Blood No Growth after 72 hours Assessment and Plan Assessment: #1 nonoliguric acute kidney injury secondary to ischemic and toxic ATN from hypotension and contrast currently dialysis dependent. #2 Aortoiliac occlusive disease status post bypass with open thrombectomy #3 volume overload #4 A. fib with RVR #5 CKD stage III secondary to nephrosclerosis with a baseline creatinine of 1.3- 1.7 to per DL. #6 anemia rule out bleeding. #7 hyperphosphatemia secondary to acute kidney injury. Plan: #1 currently on daily dialysis for ultrafiltration. Last dialysis was Sunday. #2 continue with Lasix 80 mg IV twice a day for diuresis #3 avoid nephrotoxic agents and hypotensive episodes #4 maintain Vanco trough level less than 20, labs yesterday was 21. #5 good urine output, seems to be recovering, plan dialysis on Sunday based on the labs.
[2018-10-27] MEDS: HEPARIN SOD,PORK IN 0.45% NACL 25,000 UNIT in 0.45% NACL 1 250ML.BAG IV SCH ×2 (11:56→20:30)
[2018-10-27 12:01] LABS: Glucose,Whole Blood 110 mg/dL (75-99)
--- NOTE | 2018-10-27 12:04 | P.PN ---
Subjective Progress Note Date: 10/27/18 Principal diagnosis: acute ventilator-dependent hypoxic respiratory failure secondary to aspiration pneumonia and ARDS. On 10/20/2018 of seeing this patient for a follow-up. The patient is sedated on 30 mics of propofol. He was able to come off sedation adequately yesterday as the patient became restless and they suggested a mechanical ventilator. This morning it is back on sedation. He was on a PEEP of 11 with an FiO2 of 40% and a rate of 400 and respiratory rate of 32. I realize that the patient ever pressure lower and he was sucking way higher tidal volumes as with provided to him through the mechanical ventilator. Based on that, switch this patient to a VC plus mode and increase the tidal volume to 500 and dropped a respiratory rate up to 24 and dropped PEEP down to 9 keeping the FiO2 at 40% and the chest x-ray shows improvement of breath and pulmonary infiltrates. The patient's airway pressure steadily on the decline. Lower lobe consolidation improving and the patient is currently on IV meropenem. He is on TPN for nutritional support. Abdomen is slightly distended and hypoactive bowel sounds. Orogastric tube is in place. Surgical abdominal wound site is dry clean and intact. The groin wounds are clean and intact. Pulses in the lower extremities are obtained and measured by Doppler. He has undergone 4 sessions of hemodialysis and the lacer ation was done yesterday without any complication with significant ultrafiltration. He is afebrile. He is hemodynamically stable on no pressors and both of vasopressin and levo fed has been discontinued. I am thinking and the patient will be a difficult wean and is reasonable to consider a PEG and trach special with above-mentioned medical problems and comorbidities encountered over the past 1 week. His white cell count is 17. Hemoglobin stable at 8.0. The patient remains on IV heparin. PH is 7.49 with a pCO2 of 38 and pO2 of 103. There is scrotal edema which is also improving. Reevaluated today on 10/21/2018, patient remains on mechanical ventilation, sedated, presently on assist control rate of 22, FiO2 of 45%, tidal volume of 500, and PEEP of 6. patient is actually on volume control plus mode of mechanical ventilation. Hence his tidal volume varies from breast of breath. I was able to drop the PEEP down to 6 today. Patient seems to be ventilating quite well. He is hemodynamically stable today, off all pressors, remains on antibiotics for left lower lobe consolidation and fever, he is on Merrem. Remains on TPN, and he may undergo tracheostomy and PEG tube placement today by Dr. rodriguez. However he is yet to have his dialysis this morning.WBC count is 15.8 hemoglobin is 7.7. ABG this morning showed a pO2 of 122 pCO2 of 37 pH of 7.46.worsening renal profile is noted today, BUN is 66 creatinine is 5.03, patient remains oliguric, roughly about 30 mL of urine per shift. Patient was reevaluated today on , remains on mechanical ventilation. Patient was reevaluated today on 10/22/2018, remains on mechanical ventilation, he is now on assist control rate of 22, tidal volume of 500/volume control plus, FiO2 45%, PEEP of 6. Remains on propofol at 20 mcg/kg/m, patient is arousable, seems to follow simple instructions, presently on dialysis. Patient is van eduled to undergo tracheostomy and possible PEG tube placement today. Chest x- ray showed diffuse interstitial pattern with bilateral small effusions greater on the left. The findings are suggestive of resolving ARDS, doubt cardiogenic pulmonary edema. Although the possibility of interstitial edema is not entirely ruled out considering the patient is oliguric, and he is requiring daily hemodialysis at this point. Labs today showed hemoglobin of 7.4 WBC count of 12.9. ABG showed a pO2 of 96 pCO2 of 36 pH of 7.48 Reevaluated today on 10/23/2018, patient remains on mechanical ventilation, und erwent tracheostomy today, but no PEG tube was placed. Patient remains on same ventilator settings, assist control rate of 22, tidal volume 500+ FiO2 45% PEEP 6. Patient had an uneventful tracheostomy however there is evidence of some leak and volume loss around the tracheostomy site. And what is more concerning today is the fact that the patient had multiple positive blood cultures for what seems to be staph epidermidis, and I believe the patient may have catheter related sepsis from his catheters including his central line and arterial line. Most likely it is his left subclavian central line which would have to be removed today, and the tip will be cultured. I have instructed the nurses to call for a midline placement in the meantime the patient remains on antibiotics in the form of vancomycin. After 24 or 48 hours, decline may have to be placed. Patient remains sedated, he is on propofol, and I plan to taper the propofol down, assess his mental status. ABG today showed a pO2 of 110 pCO2 of 36 pH of 7.46 electrolytes were noted renal profile remains abnormal sodium is 129. Patient remains on dialysis and he is scheduled to undergo dialysis again today. Chest x-ray showed mild interstitial edema. And bibasilar atelectasis. Reevaluated today on 10/24/2018, patient remains on mechanical ventilation, he underwent a weaning trial with a pressure support of 8 and CPAP yesterday, tolerated at least a good 6 hours of weaning. However he was noted after 6 hours to become more agitated, restless, and tachycardic as well as tachypneic. Hence patient is back on assist control mode of mechanical ventilation, and patient is being considered for possible PEG tube placement today. His central line was discontinued yesterday and cultured, patient is now on vancomycin and Rocephin, evaluated by infectious disease again, and agreed with the plan to discontinue central line, patient is now being managed mostly with peripheral lines, and he will be on peripheral TPN. I plan to continue weaning trial today with a pressure support and CPAP, however if the patient is scheduled for a PEG tube placement, we will delay until the PEG tube is placed. Blood cultures from yesterday are pending. The tip of the catheter culture is pending. Patient will eventually need a PICC line placement hopefully in the next 24 hours. That means he would have received a good course of IV antibiotics for staph epidermidis catheter sepsis 4-48 hours before we proceed with another central line placement/PICC line. Patient is being dialyzed today, he is hemodynamically stable, not requiring any pressors. His ventilator settings are tidal volume of 500 assist control rate of 20 to FiO2 of 45% and PEEP is 6. In spite of being on a low dose of propofol, patient seems to be comprehending, and follows simple instructions. Reevaluated today on 10/25/2018, remains on mechanical ventilation, awake, extremely weak, follows very simple instructions. His ventilator settings are assist control rate of 20, volume 450 FiO2 50% PEEP of 5. Remains on hemodialysis on a daily basis, patient is presently off pressors, urine output is gradually improving about 25-50 mL per hour. Patient is status post tracheostomy on October 22. And he is status post PEG tube placement on October 24. Patient remains quite edematous. Awake, follows simple instructions, and today I plan to give him a trial of pressure support and CPAP again. However his pressure support will be up to 10 and while I was at bedside, I noted that the patient is doing quite well with pressure support of 10, tidal volumes are in the 800-1000 range. And he seems to be comfortable on a pressure support with CPAP chest x-ray and labs were reviewed. Minimal interstitial edema noted on the chest x-ray. Reevaluated today on 10/26/2018, remains on mechanical ventilation, tolerated pressure support and CPAP was yesterday, and overnight he was placed on assist control mode of mechanical ventilation, and today I plan to place him back on pressure support of 8 and CPAP, may even consider a trach collar weaning if tolerated. Patient is status post PEG tube placement yesterday, and his TPN was switched to enteral feeding today. His ventilator settings this morning are basically the same as above. But I went ahead and place him on a pressure support of 8 and CPAP. FiO2 is 40%. Patient is being dialyzed today. He is on heparin, not requiring any pressors, he is in normal sinus rhythm, and hemodynamically stable. Patient opens eyes, follows very simple instructions, but seems to be generally weak, patient may have some component of critical illness polyneuropathy. Patient was reevaluated today on 10/27/2018, he is off mechanical ventilation, presently on trach collar at 55% since yesterday at 10 AM. Obviously the patient has been tolerating weaning quite well.no plans for hemodialysis today, patient is generally weak, remains on enteral feeding via PEG tube.hemoglobin today is 7.2, PTT is at 73.3, left lites are normal renal profile showed a BUN of 68 creatinine of 4.59 Objective - Vital Signs Vital signs: Vital Signs Temp 99.9 F H 10/27/18 08:00 Pulse 108 H 10/27/18 11:24 Resp 12 10/27/18 11:00 BP 142/79 10/27/18 11:00 Pulse Ox 97 10/27/18 11:00 Intake & Output 10/26/18 10/27/18 10/27/18 18:59 06:59 18:59 Intake Total 4293.604 3568.237 372.606 Output Total 4403 695 285 Balance -3008.871 562.237 87.606 Weight 106.3 kg Intake: IV 1280 810 40 Normal Saline carrier 130 110 40 PPN 1150 700 Intake, IV Titration 104.129 117.237 197.606 Amount Heparin Sod,Pork in 0.45% 104.129 117.237 197.606 NaCl 25,000 unit In 0.45 % NaCl 1 250ml.bag @ 18 UNITS/KG/HR 20.682 mls/hr IV .[id number] [facility] Rx#: [id number] Tube Feeding 10 240 105 Other 90 30 Output: Urine 403 695 285 Hemodialysis 4000 Other: Voiding Method Indwelling Catheter Indwelling Catheter Indwelling Catheter # Bowel Movements 1 ABP, PAP, CO, CI - Last Documented Arterial Blood Pressure 145/62 - Exam GENERAL EXAM: revealed a 53-year-old white male on trach collar, has been on trach collar for the last 24 hours HEAD: Normocephalic/atraumatic. EENT: PERRLA, EOMI, tracheostomy seems to be intact no neck masses. CHEST: No chest wall deformity. Symmetrical expansion. LUNGS:minimal fine crackles at the bases. No rhonchi and no wheezes. CVS: normal S1 and S2, no gallops. No murmur. ABDOMEN:soft nontender no megaly. Diminished bowel sounds. Midabdominal and Bilateral groin incisions, PEG tube is noted in place . less scrotal swelling is noted. EXTREMITIES: Continues to have sterile dressing on his bilateral lower extremities once, pulses are extremely diminished felt only by Doppler. Feet are both warm. MUSCULOSKELETAL: Patient follows simple instructions, move upper and lower e xtremities upon command. SKIN: As noted under extremities. CENTRAL NERVOUS SYSTEM: awake, follows instructions, generally weak. - Labs CBC & Chem 7: 10/27/18 06:14 10/27/18 06:14 Labs: Abnormal Lab Results - Last 24 Hours (Table) 10/22/18 10/26/18 10/27/18 Range/Units 15:21 23:22 03:09 RBC (4.30-5.90) m/uL Hgb (13.0-17.5) gm/dL Hct (39.0-53.0) % RDW (11.5-15.5) % APTT 43.5 H (22.0-30.0) sec Fibrinogen Antigen 454 H (180-350) mg/dL BUN (9-20) mg/dL Creatinine (0.66-1.25) mg/dL POC Glucose (mg/dL) 113 H (75-99) mg/dL Phosphorus (2.5-4.5) mg/dL 10/27/18 10/27/18 10/27/18 Range/Units 04:14 06:14 06:14 RBC (4.30-5.90) m/uL Hgb (13.0-17.5) gm/dL Hct (39.0-53.0) % RDW (11.5-15.5) % APTT 73.3 H (22.0-30.0) sec Fibrinogen Antigen (180-350) mg/dL BUN 68 H (9-20) mg/dL Creatinine 4.59 H (0.66-1.25) mg/dL POC Glucose (mg/dL) 100 H (75-99) mg/dL Phosphorus 4.7 H (2.5-4.5) mg/dL 10/27/18 Range/Units 06:14 RBC 2.44 L (4.30-5.90) m/uL Hgb 7.2 L (13.0-17.5) gm/dL Hct 21.6 L (39.0-53.0) % RDW 16.4 H (11.5-15.5) % APTT (22.0-30.0) sec Fibrinogen Antigen (180-350) mg/dL BUN (9-20) mg/dL Creatinine (0.66-1.25) mg/dL POC Glucose (mg/dL) (75-99) mg/dL Phosphorus (2.5-4.5) mg/dL Microbiology - Last 24 Hours (Table) 10/21/18 23:49 Blood Culture - Preliminary Blood No Growth after 120 hours 10/22/18 23:24 Blood Culture - Preliminary Blood No Growth after 96 hours 10/22/18 22:50 Blood Culture - Preliminary Blood No Growth after 96 hours 10/23/18 11:15 Blood Culture - Preliminary Blood No Growth after 72 hours 10/23/18 11:20 Blood Culture - Preliminary Blood No Growth after 72 hours Assessment and Plan Assessment: impression: 1 acute ventilator-dependent hypoxic respiratory failure secondary to pneumonia and ARDS. 2 peripheral vessel occlusive disease, status post aortobifemoral bypass surgery on 11/03/2018, with complicated course complicated by pneumonia and ARDS acute kidney injury 3 acute ischemic limbs postop requiring emergent thrombectomy on the right on 10/11/2018 and on the left on 10/23/2018. 4 acute septic shock is likely based on the fact that the patient required significant pressors at one point. However presently resolved. He is now hemodynamically stable. 5 acute kidney injury/acute tubular necrosis secondary to sepsis. Patient remains on hemodialysis. Has been receiving dialysis on a daily basis. 6 aortic dissection as noted on CT of the abdomen 7 chronic back pain 8 obesity/BMI of 39.3 9 deep tissue injury to his left heel 10 paroxysmal atrial fibrillation 11 status post tracheostomy and dialysis catheter placement on 10/22/2018. 12 status post PEG tube placement on 10/24/2018 12 strongly suspect catheter related sepsis from central line patient had multiple positive blood culture for staph epidermidis. Follow-up blood cultures after October 22 have been negative. No need to remove his dialysis catheter. 13 suspected critical illness polyneuropathy and profound weakness. Patient will eventually require significant and long time of rehabilitation. recommendation: continue on trach collar off mechanical ventilation. Continue, nutritional support, enteral feeding via PEG tube.. antibiotics, hemodialysis, , continue antibiotics, consider placement of a PICC line, patient will definitely benefit from long-term rehabilitation referral. Hopefully that can be done in the next couple of days. Time with Patient: Less than 30
--- NOTE | 2018-10-27 12:45 | P.PN ---
Progress Note - Text Progress Note Date: 10/27/18 The patient had some bleeding from his gastrostomy tube yesterday. His heparin drip was stopped for 6 hours. The nurses say it may have been caused by some trauma when the patient was rotated in the bed. Today his PEG site is clear. There is no evidence of any bleeding. He has resumed his heparin drip. Bleeding resolved at PEG tube site. Patiently managed per the scientific writer.
[2018-10-27] MEDS: NOREPINEPHRINE 32 MG in SODIUM CHLORIDE 0.9% 218 ML IV SCH (15:59)
[2018-10-27] MEDS ORDERED: ONDANSETRON 4 MG/2 ML VIAL IVP PRN (17:12)
[2018-10-27 18:04] LABS: Glucose,Whole Blood 94 mg/dL (75-99)
--- NOTE | 2018-10-27 19:14 | P.PN ---
Subjective Progress Note Date: 10/27/18 Principal diagnosis: Acute hypoxic respiratory failure secondary to aspiration pneumonia and ARDS Status post Aorto- femoral bypass surgery Mr. Agarwal is a 52-year-old male who underwent aortofemoral bypass graft on 10/07/2018 and later his course was complicated by an acute hypoxemic respiratory failure, aspiration pneumonia and ARDS. Patient also developed acute on chronic kidney failure secondary to ATN and contrast nephropathy. He is currently on hemodialysis. The patient had a trach and PEG tube placement done recently. Patient's mentation is slowly improving. On 10/26/2018 - patient is in the ICU. He has been off of all sedation . He is awake but cannot communicate because of tracheostomy. Patient had a PEG tube placed on the and that is small amount of bleeding at the PEG site insertion. No acute events reported by nursing staff overnight. Patient is currently on ceftriaxone. Chest x-ray showing improvement of the left base laterally disease. Patient cannot communicate but on asking him if he is any discomfort he nods his head. Does not look like he is in any kind of distress. On 10/27/18 - patient is still in the ICU. He has been off of all sedation. Patient appears to be in a better mood today. Patient has been off of mechanical ventilation and on a trach collar at 55% since yesterday morning. As per nursing staff report the patient has been having good urinary output as much as 100 mL/h. So his dialysis has been held today. Patient's PEG tube feeds has been started but as the patient was having a little bit of nausea, the PEG tube feeds are held and he received a dose of Zofran. Patient's labs have been reviewed his hemoglobin is stable around 7.2. Medications medications have been reviewed Active Medications Albuterol/Ipratropium (Duoneb 0.5 Mg-3 Mg/3 Ml Soln) 3 ml INHALATION RT-QID [facility] Last Admin: 10/27/18 15:12 Dose: 3 ml Documented by: Albuterol/Ipratropium (Duoneb 0.5 Mg-3 Mg/3 Ml Soln) 3 ml INHALATION RT-Q2H PRN PRN Reason: Shortness Of Breath Or Wheezing Last Admin: 10/19/18 23:20 Dose: 3 ml Documented by: Amiodarone HCl (Cordarone) 200 mg PO BID [facility] Last Admin: 10/27/18 08:04 Dose: 200 mg Documented by: Aspirin (Aspirin) 81 mg PO DAILY [facility] Last Admin: 10/27/18 08:04 Dose: 81 mg Documented by: Bisacodyl (Dulcolax) 10 mg RECTAL DAILY [facility] Last Admin: 10/27/18 08:04 Dose: Not Given Documented by: Calcium Acetate (Phoslo) 667 mg PO BID-W/MEALS [facility] Last Admin: 10/27/18 16:39 Dose: 667 mg Documented by: Collagenase (Santyl) 1 applic TOPICAL DAILY [facility] Last Admin: 10/27/18 09:58 Dose: 1 applic Documented by: Darbepoetin Maikel (Aranesp) 40 mcg SQ Q7D [facility] Last Admin: 10/22/18 14:38 Dose: 40 mcg Documented by: Fenofibrate (Lofibra) 160 mg PO DAILY [facility] Last Admin: 10/27/18 08:04 Dose: 160 mg Documented by: Furosemide (Lasix) 80 mg IV Q12HR [facility] Last Admin: 10/27/18 08:04 Dose: 80 mg Documented by: Gabapentin (Neurontin) 300 mg PO TID [facility] Last Admin: 10/27/18 16:39 Dose: 300 mg Documented by: Heparin Sodium (Porcine) (Heparin) 0 unit IV PER PROTOCOL PRN; Protocol PRN Reason: Low PTT Last Admin: 10/27/18 00:24 Dose: 4,400 unit Documented by: Hydromorphone HCl (Dilaudid) 1 mg IVP Q4HR PRN PRN Reason: pain Last Admin: 10/27/18 15:54 Dose: 1 mg Documented by: Propofol 1,000 mg/ IV Solution 100 mls @ 0 mls/hr IV .Q0M [facility]; Protocol Last Titration: 10/25/18 08:30 Dose: 0 mcg/kg/min, 0 mls/hr Documented by: Norepinephrine Bitartrate 32 (mg/ Sodium Chloride) 250 mls @ 2.693 mls/hr IV .Q24H [facility]; Protocol Last Admin: 10/27/18 15:59 Dose: Not Given Documented by: Heparin Sodium/Sodium Chloride (25,000 unit/ Sodium Chloride) 250 mls @ 20.682 mls/hr IV .Q12H6M [facility]; Protocol Last Titration: 10/27/18 13:28 Dose: 17.74 units/kg/hr, 20.383 mls/hr Documented by: Ceftriaxone Sodium 2 gm/ (Sodium Chloride) 50 mls @ 100 mls/hr IVPB Q24HR [facility] Last Admin: 10/27/18 09:47 Dose: 100 mls/hr Documented by: Parenteral Vitamin Supplement 10 ml/ Chromium/Copper/Manganese/Seleni/Zn 1 ml/Sodium Acetate 15 meq/ Calcium Gluconate 1 gm/ Potassium Chloride 15 meq/ Sodium Chloride 20 meq/ Amino Acids/Dextrose 1,044 mls @ 100 mls/hr IV .BY DURATION [facility] Last Admin: 10/27/18 07:41 Dose: Not Given Documented by: Sodium Acetate 15 meq/ Calcium Gluconate 1 gm/ Potassium Chloride 15 meq/ Sodium Chloride 20 meq/ Amino Acids/Dextrose 1,033 mls @ 100 mls/hr IV .BY DURATION [facility] Last Admin: 10/27/18 15:59 Dose: Not Given Documented by: Lidocaine HCl (.Xylocaine 1% Inj (10mg/Ml) For Iv Start) 0.1 ml INTRADERMA PER PROTOCOL PRN PRN Reason: IV Start Last Admin: 10/07/18 10:17 Dose: 0.1 ml Documented by: Miscellaneous Information (Potassium Per Protocol) 1 each MISCELLANE DAILY PRN; Protocol PRN Reason: Per Protocol Miscellaneous Information (Pharmacy To Dose Iv Vancomycin) 1 each MISCELLANE DIRECTED PRN PRN Reason: Per Protocol Naloxone HCl (Narcan) 0.2 mg IV Q2M PRN PRN Reason: Opioid Reversal Ondansetron HCl (Zofran) 4 mg IVP Q8H PRN PRN Reason: Nausea And Vomiting Last Admin: 10/27/18 17:34 Dose: 4 mg Documented by: Pantoprazole Sodium (Protonix) 40 mg IVP DAILY [facility] Last Admin: 10/27/18 08:03 Dose: 40 mg Documented by: Objective - Vital Signs Vital signs: Vital Signs Temp 98.4 F 10/27/18 16:00 Pulse 97 10/27/18 18:00 Resp 15 10/27/18 18:00 BP 146/73 10/27/18 18:00 Pulse Ox 99 10/27/18 18:00 Intake & Output 10/26/18 10/27/18 10/27/18 18:59 06:59 18:59 Intake Total 8551.405 7777.237 792.385 Output Total 4403 695 900 Balance -3008.871 562.237 -107.615 Weight 106.3 kg Intake: IV 1280 810 120 Normal Saline carrier 130 110 120 PPN 1150 700 Intake, IV Titration 104.129 117.237 232.385 Amount Heparin Sod,Pork in 0.45% 104.129 117.237 232.385 NaCl 25,000 unit In 0.45 % NaCl 1 250ml.bag @ 18 UNITS/KG/HR 20.682 mls/hr IV .Q12H6M [facility] Rx#: [id number] Tube Feeding 10 240 350 Other 90 90 Output: Urine 403 695 900 Hemodialysis 4000 Other: Voiding Method Indwelling Catheter Indwelling Catheter Indwelling Catheter # Bowel Movements 1 1 ABP, PAP, CO, CI - Last Documented Arterial Blood Pressure 145/62 - Exam PHYSICAL EXAMINATION: Patient is lying in the bed comfortably, no acute distress, awake alert and cannot communicate verbally... HEENT: Normocephalic. Neck is supple. Pupils reactive. Nostrils clear. Oral cavity is moist. Ears reveal no drainage. CHEST EXAMINATION: Trachea is central. Tracheostomy tube present. Coarse breath sounds in all lung hickman. Few crackles at the lower lung bases CARDIAC: Normal S1, S2 with no gallops. No murmurs ABDOMEN: Soft. Nontender. PEG tube site intact. Bowel sounds normal. No organomegaly. Extremities: Bilateral pitting edema. Mild scrotal edema. Neurologically : awake, alert and follows simple commands.. No gross focal deficits noted. Skin: . Multiple ecchymotic patches on the bilateral upper extremities.. Psychiatric: Coperative. Musculoskeletal: No joint swelling or deformity. - Labs CBC & Chem 7: 10/27/18 06:14 10/27/18 06:14 Labs: Abnormal Lab Results - Last 24 Hours (Table) 10/26/18 10/27/18 10/27/18 Range/Units 23:22 03:09 04:14 RBC (4.30-5.90) m/uL Hgb (13.0-17.5) gm/dL Hct (39.0-53.0) % RDW (11.5-15.5) % APTT 43.5 H (22.0-30.0) sec BUN (9-20) mg/dL Creatinine (0.66-1.25) mg/dL POC Glucose (mg/dL) 113 H 100 H (75-99) mg/dL Phosphorus (2.5-4.5) mg/dL 10/27/18 10/27/18 10/27/18 Range/Units 06:14 06:14 06:14 RBC 2.44 L (4.30-5.90) m/uL Hgb 7.2 L (13.0-17.5) gm/dL Hct 21.6 L (39.0-53.0) % RDW 16.4 H (11.5-15.5) % APTT 73.3 H (22.0-30.0) sec BUN 68 H (9-20) mg/dL Creatinine 4.59 H (0.66-1.25) mg/dL POC Glucose (mg/dL) (75-99) mg/dL Phosphorus 4.7 H (2.5-4.5) mg/dL 10/27/18 10/27/18 Range/Units 11:59 12:30 RBC (4.30-5.90) m/uL Hgb (13.0-17.5) gm/dL Hct (39.0-53.0) % RDW (11.5-15.5) % APTT 81.3 H (22.0-30.0) sec BUN (9-20) mg/dL Creatinine (0.66-1.25) mg/dL POC Glucose (mg/dL) 110 H (75-99) mg/dL Phosphorus (2.5-4.5) mg/dL Microbiology - Last 24 Hours (Table) 10/23/18 11:15 Blood Culture - Preliminary Blood No Growth after 96 hours 10/23/18 11:20 Blood Culture - Preliminary Blood No Growth after 96 hours 10/21/18 23:49 Blood Culture - Preliminary Blood No Growth after 120 hours 10/22/18 23:24 Blood Culture - Preliminary Blood No Growth after 96 hours 10/22/18 22:50 Blood Culture - Preliminary Blood No Growth after 96 hours Assessment and Plan Assessment: ASSESSMENT Acute hypoxic respiratory failure secondary to ARDS and possible aspiration pneumonia. Status post tracheostomy and PEG tube placement. Status post aortofemoral bypass surgery on 10/07/2018 Severe peripheral vascular disease Acute kidney injury secondary to ATN and suspected contrast-induced. Requiring hemodialysis COPD Chronic back pain Paroxysmal atrial fibrillation Aortic dissection as noted on CT abdomen Morbid obesity with BMI 40.4 PLAN: Patient has been off of mechanical ventilation since yesterday morning. He is on a trach collar. Tolerated by mouth feeds but had some nausea for which the tube feeds are being held currently patient is being given a dose of Zofran. Nephrology on board and following, hemodialysis held today as the patient has good urinary output. Continue antibiotics in the form of ceftriaxone. Cultures from the have been negative so far. Overall prognosis remains guarded.
[2018-10-28 01:31] LABS: Glucose,Whole Blood 86 mg/dL (75-99)
[2018-10-28 05:15] LABS: Anisocytosis Slight; Basophils # (A) 0.1 k/uL (0-0.2); Basophils % (A) 1 %; Eosinophils # (A) 0.3 k/uL (0-0.7); Eosinophils % (A) 4 %; HCT 23.7 % (39.0-53.0); HGB 7.6 gm/dL (13.0-17.5); Hypochromasia Slight; Lymphocytes # (A) 0.8 k/uL (1.0-4.8); Lymphocytes % (A) 10 %; MCH 28.9 pg (25.0-35.0); MCHC 32.2 g/dL (31.0-37.0); MCV 89.8 fL (80.0-100.0); Mean Platelet Volume 7.9; Monocytes # (A) 0.4 k/uL (0-1.0); Monocytes % (A) 6 %; Neutrophils # (A) 5.7 k/uL (1.3-7.7); Neutrophils % (A) 77 %; Platelet Count 316 k/uL (150-450); RBC 2.63 m/uL (4.30-5.90); RDW 16.3 % (11.5-15.5); WBC 7.5 k/uL (3.8-10.6)
[2018-10-28 05:29] LABS: Calcium 9.2 mg/dL (8.4-10.2); Phosphorus 7.9 mg/dL (2.5-4.5); Potassium 4.2 mmol/L (3.5-5.1)
[2018-10-28 05:34] LABS: Vancomycin,Random 26.6 ug/mL
[2018-10-28 05:50] LABS: Glucose,Whole Blood 91 mg/dL (75-99)
[2018-10-28] MEDS: IPRATROPIUM-ALBUTEROL 3 ML NEB INHALATION SCH ×4 (09:18→19:46)
--- NOTE | 2018-10-28 09:38 | P.PN ---
Subjective Progress Note Date: 10/28/18 Principal diagnosis: Peripheral vascular disease, aortoiliac occlusive disease with severe claudication, status post aortobifemoral bypass grafting, ARDS, acute hypoxemic respiratory failure, requiring ventilator support, and subsequent tracheostomy and PEG tube On 10/20/2018 of seeing this patient for a follow-up. The patient is sedated on 30 mics of propofol. He was able to come off sedation adequately yesterday as the patient became restless and they suggested a mechanical ventilator. This morning it is back on sedation. He was on a PEEP of 11 with an FiO2 of 40% and a rate of 400 and respiratory rate of 32. I realize that the patient ever pressure lower and he was sucking way higher tidal volumes as with provided to him through the mechanical ventilator. Based on that, switch this patient to a VC plus mode and increase the tidal volume to 500 and dropped a respiratory rate up to 24 and dropped PEEP down to 9 keeping the FiO2 at 40% and the chest x-ray shows improvement of breath and pulmonary infiltrates. The patient's airway pressure steadily on the decline. Lower lobe consolidation improving and the patient is currently on IV meropenem. He is on TPN for nutritional support. Abdomen is slightly distended and hypoactive bowel sounds. Orogastric tube is in place. Surgical abdominal wound site is dry clean and intact. The groin wounds are clean and intact. Pulses in the lower extremities are obtained and measured by Doppler. He has undergone 4 sessions of hemodialysis and the laceration was done yesterday without any complication with significant ultrafiltration. He is afebrile. He is hemodynamically stable on no pressors and both of vasopressin and levo fed has been discontinued. I am thinking and the patient will be a difficult wean and is reasonable to consider a PEG and trach special with above-mentioned medical problems and comorbidities encountered over the past 1 week. His white cell count is 17. Hemoglobin stable at 8.0. The patient remains on IV heparin. PH is 7.49 with a pCO2 of 38 and pO2 of 103. There is scrotal edema which is also improving. Reevaluated today on 10/21/2018, patient remains on mechanical ventilation, sedated, presently on assist control rate of 22, FiO2 of 45%, tidal volume of 500, and PEEP of 6. patient is actually on volume control plus mode of mechanical ventilation. Hence his tidal volume varies from breast of breath. I was able to drop the PEEP down to 6 today. Patient seems to be ventilating quite well. He is hemodynamically stable today, off all pressors, remains on a ntibiotics for left lower lobe consolidation and fever, he is on Merrem. Remains on TPN, and he may undergo tracheostomy and PEG tube placement today by Dr. rodriguez. However he is yet to have his dialysis this morning.WBC count is 15.8 hemoglobin is 7.7. ABG this morning showed a pO2 of 122 pCO2 of 37 pH of 7.46.worsening renal profile is noted today, BUN is 66 creatinine is 5.03, patient remains oliguric, roughly about 30 mL of urine per shift. Patient was reevaluated today on , remains on mechanical ventilation. Patient was reevaluated today on 10/22/2018, remains on mechanical ventilation, he is now on assist control rate of 22, tidal volume of 500/volume control plus, FiO2 45%, PEEP of 6. Remains on propofol at 20 mcg/kg/m, patient is arousable, seems to follow simple instructions, presently on dialysis. Patient is scheduled to undergo tracheostomy and possible PEG tube placement today. Chest x-ray showed diffuse interstitial pattern with bilateral small effusions greater on the left. The findings are suggestive of resolving ARDS, doubt cardiogenic pulmonary edema. Although the possibility of interstitial edema is not entirely ruled out considering the patient is oliguric, and he is requiring daily hemodialysis at this point. Labs today showed hemoglobin of 7.4 WBC count of 12.9. ABG showed a pO2 of 96 pCO2 of 36 pH of 7.48 Reevaluated today on 10/23/2018, patient remains on mechanical ventilation, underwent tracheostomy today, but no PEG tube was placed. Patient remains on same ventilator settings, assist control rate of 22, tidal volume 500+ FiO2 45% PEEP 6. Patient had an uneventful tracheostomy however there is evidence of some leak and volume loss around the tracheostomy site. And what is more concerning today is the fact that the patient had multiple positive blood cultures for what seems to be staph epidermidis, and I believe the patient may have catheter related sepsis from his catheters including his central line and arterial line. Most likely it is his left subclavian central line which would have to be removed today, and the tip will be cultured. I have instructed the nurses to call for a midline placement in the meantime the patient remains on antibiotics in the form of vancomycin. After 24 or 48 hours, decline may have to be placed. Patient remains sedated, he is on propofol, and I plan to taper the propofol down, assess his mental status. ABG today showed a pO2 of 110 pCO2 of 36 pH of 7.46 electrolytes were noted renal profile remains abnormal sodium is 129. Patient remains on dialysis and he is scheduled to undergo dialysis again today. Chest x-ray showed mild interstitial edema. And bibasilar atelectasis. Reevaluated today on 10/24/2018, patient remains on mechanical ventilation, he underwent a weaning trial with a pressure support of 8 and CPAP yesterday, tolerated at least a good 6 hours of weaning. However he was noted after 6 hours to become more agitated, restless, and tachycardic as well as tachypneic. Hence patient is back on assist control mode of mechanical ventilation, and patient is being considered for possible PEG tube placement today. His central line was discontinued yesterday and cultured, patient is now on vancomycin and Rocephin, evaluated by infectious disease again, and agreed with the plan to discontinue central line, patient is now being managed mostly with peripheral lines, and he will be on peripheral TPN. I plan to continue weaning trial today with a pressure support and CPAP, however if the patient is scheduled for a PEG tube placement, we will delay until the PEG tube is placed. Blood cultures from yesterday are pending. The tip of the catheter culture is pending. Patient will eventually need a PICC line placement hopefully in the next 24 hours. That means he would have received a good course of IV antibiotics for staph epidermidis catheter sepsis 4-48 hours before we proceed with another central line placement/PICC line. Patient is being dialyzed today, he is hemodynamically stable, not requiring any pressors. His ventilator settings are tidal volume of 500 assist control rate of 20 to FiO2 of 45% and PEEP is 6. In spite of being on a low dose of propofol, patient seems to be comprehending, and follows simple instructions. Reevaluated today on 10/25/2018, remains on mechanical ventilation, awake, extremely weak, follows very simple instructions. His ventilator settings are assist control rate of 20, volume 450 FiO2 50% PEEP of 5. Remains on hemodialysis on a daily basis, patient is presently off pressors, urine output is gradually improving about 25-50 mL per hour. Patient is status post tracheostomy on October 22. And he is status post PEG tube placement on October 24. Patient remains quite edematous. Awake, follows simple instructions, and today I plan to give him a trial of pressure support and CPAP again. However his pr essure support will be up to 10 and while I was at bedside, I noted that the patient is doing quite well with pressure support of 10, tidal volumes are in the 800-1000 range. And he seems to be comfortable on a pressure support with CPAP chest x-ray and labs were reviewed. Minimal interstitial edema noted on the chest x-ray. Reevaluated today on 10/26/2018, remains on mechanical ventilation, tolerated pressure support and CPAP was yesterday, and overnight he was placed on assist control mode of mechanical ventilation, and today I plan to place him back on pressure support of 8 and CPAP, may even consider a trach collar weaning if tolerated. Patient is status post PEG tube placement yesterday, and his TPN was switched to enteral feeding today. His ventilator settings this morning are ba sically the same as above. But I went ahead and place him on a pressure support of 8 and CPAP. FiO2 is 40%. Patient is being dialyzed today. He is on heparin, not requiring any pressors, he is in normal sinus rhythm, and hemodynamically stable. Patient opens eyes, follows very simple instructions, but seems to be generally weak, patient may have some component of critical illness polyneuropathy. Patient was reevaluated today on 10/27/2018, he is off mechanical ventilation, presently on trach collar at 55% since yesterday at 10 AM. Obviously the patient has been tolerating weaning quite well.no plans for hemodialysis today, patient is generally weak, remains on enteral feeding via PEG tube.hemoglobin today is 7.2, PTT is at 73.3, left lites are normal renal profile showed a BUN of 68 creatinine of 4.59 On 10/28/2018 she was seen in follow-up in the intensive care unit, he is awake and alert, he is on 28% trach collar, with a pulse ox of 97%, with dynamically stable, afebrile. 0.9 normal saline at rate of 20 ML per hour, and heparin per weight-based protocol, tube feedings are on hold. Lung sounds revealed coarse rhonchi, and his occasional cough, with thick sputum. Patient is having hemodialysis treatment right now. Fluid volume is improving, patient is down 0.5 kg in the last 24 hours, was edema is improving. Still has some 1+ pitting edema in upper and lower extremities. No Chest x-rays today. Today's labs have been reviewed, showing white blood cell, 7.5, hemoglobin 7.6, white count is 316, serum sodium is 137, potassium is 4.2, chloride is 101, CO2 is 21, BUN is 93 creatinine is 5.3. Remains generally weak, but denies any discomfort. Following command, mentation seems to be appropriate. Objective - Vital Signs Vital signs: Vital Signs Temp 98.9 F 10/28/18 04:00 Pulse 97 10/28/18 07:00 Resp 20 10/28/18 07:00 BP 138/70 10/28/18 07:00 Pulse Ox 98 10/28/18 07:00 Intake & Output 10/27/18 10/28/18 10/28/18 18:59 06:59 18:59 Intake Total 792.385 638.36 30 Output Total 900 1475 235 Balance -107.615 -836.64 -205 Weight 105.8 kg Intake: IV 120 120 30 Normal Saline carrier 120 120 30 Intake, IV Titration 232.385 143.36 Amount Heparin Sod,Pork in 0.45% 232.385 143.36 NaCl 25,000 unit In 0.45 % NaCl 1 250ml.bag @ 18 UNITS/KG/HR 20.682 mls/hr IV .Q12H6M [facility] Rx#: [id number] Tube Feeding 350 315 Other 90 60 Output: Urine 900 1475 235 Other: Voiding Method Indwelling Catheter Indwelling Catheter # Bowel Movements 1 1 ABP, PAP, CO, CI - Last Documented Arterial Blood Pressure 145/62 - Exam GENERAL EXAM: Alert, 53-year-old white male, on 28% trach collar resting in bed. HEAD: Normocephalic/atraumatic. EYES: Normal reaction of pupils, equal size. Conjunctiva pink, sclera white. NOSE: Clear with pink turbinates. THROAT: No erythema or exudates. NECK: No masses, no JVD, no thyroid enlargement, no adenopathy. Midline tracheostomy, with a trach collar, will amount of sputum from the tracheostomy CHEST: No chest wall deformity. Symmetrical expansion. LUNGS: Equal air entry with coarse rhonchi CVS: Regular rate and rhythm, normal S1 and S2, no gallops, no murmurs, no rubs ABDOMEN: Soft, nontender. No hepatosplenomegaly, normal bowel sounds, no guarding or rigidity. Midabdominal and Bilateral groin incisions, PEG tube is intact EXTREMITIES: No clubbing, 2+ upper and lower extremity edema, no cyanosis, post tibial pulses palpable, no palpable pedal pulses and upper and lower extremities. MUSCULOSKELETAL: Muscle strength and tone normal. SPINE: No scoliosis or deformity SKIN: No rashes CENTRAL NERVOUS SYSTEM: Alert and oriented -2, person and place PSYCHIATRIC: Alert and oriented -3. Appropriate affect. Intact judgment and insight. - Labs CBC & Chem 7: 10/28/18 04:28 10/28/18 04:28 Labs: Abnormal Lab Results - Last 24 Hours (Table) 10/27/18 10/27/18 10/27/18 Range/Units 11:59 12:30 19:01 RBC (4.30-5.90) m/uL Hgb (13.0-17.5) gm/dL Hct (39.0-53.0) % RDW (11.5-15.5) % Lymphocytes # (1.0-4.8) k/uL APTT 81.3 H 73.6 H (22.0-30.0) sec Carbon Dioxide (22-30) mmol/L BUN (9-20) mg/dL Creatinine (0.66-1.25) mg/dL POC Glucose (mg/dL) 110 H (75-99) mg/dL Phosphorus (2.5-4.5) mg/dL 10/28/18 10/28/18 10/28/18 Range/Units 04:28 04:28 04:28 RBC 2.63 L (4.30-5.90) m/uL Hgb 7.6 L (13.0-17.5) gm/dL Hct 23.7 L (39.0-53.0) % RDW 16.3 H (11.5-15.5) % Lymphocytes # 0.8 L (1.0-4.8) k/uL APTT 47.2 H (22.0-30.0) sec Carbon Dioxide 21 L (22-30) mmol/L BUN 93 H (9-20) mg/dL Creatinine 5.31 H (0.66-1.25) mg/dL POC Glucose (mg/dL) (75-99) mg/dL Phosphorus 7.9 H (2.5-4.5) mg/dL Microbiology - Last 24 Hours (Table) 10/21/18 23:49 Blood Culture - Final Blood No Growth after 144 hours 10/22/18 23:24 Blood Culture - Preliminary Blood No Growth after 120 hours 10/22/18 22:50 Blood Culture - Preliminary Blood No Growth after 120 hours 10/23/18 11:15 Blood Culture - Preliminary Blood No Growth after 96 hours 10/23/18 11:20 Blood Culture - Preliminary Blood No Growth after 96 hours Assessment and Plan Plan: Assessment: 1 acute ventilator-dependent hypoxic respiratory failure secondary to pneumonia and ARDS. 2 peripheral vessel occlusive disease, status post aortobifemoral bypass surgery on 11/03/2018, with complicated course complicated by pneumonia and ARDS acute kidney injury 3 acute ischemic limbs postop requiring emergent thrombectomy on the right on 10/11/2018 and on the left on 10/23/2018. 4 acute septic shock is likely based on the fact that the patient required significant pressors at one point. However presently resolved. He is now hemodynamically stable. 5 acute kidney injury/acute tubular necrosis secondary to sepsis. Patient remains on hemodialysis. Has been receiving dialysis on a daily basis. 6 aortic dissection as noted on CT of the abdomen 7 chronic back pain 8 obesity/BMI of 39.3 9 deep tissue injury to his left heel 10 paroxysmal atrial fibrillation 11 status post tracheostomy and dialysis catheter placement on 10/22/2018. 12 status post PEG tube placement on 10/24/2018 12 strongly suspect catheter related sepsis from central line patient had multiple positive blood culture for staph epidermidis. Follow-up blood cultures after October 22 have been negative. No need to remove his dialysis catheter. 13 suspected critical illness polyneuropathy and profound weakness. Patient will eventually require significant and long time of rehabilitation. Plan: Continue current plan of treatment, patient is doing well, maintaining good oxygenation on 28% trach collar, fluid volume status is improving, patient is having his hemodialysis treatment today, no new chest x-rays today, vital signs are stable, hemodynamically stable. Continue with supportive treatment, anticipate resuming tube feedings if okay by surgery. GI and DVT prophylaxis, antibiotics per ID service recommendation, no acute events overnight. Physical therapy consult. Possible discharge to long-term care facility today, and we'll check with discharge planning where the processes in regards to placement I performed a history & physical examination of the patient and discussed their management with my nurse practitioner, Shae Christiansen. I reviewed the nurse practitioner's note and agree with the documented findings and plan of care. Lung sounds are positive for coarse rhochi. The findings and the impression was discussed with the patient. I attest to the documentation by the nurse practitioner. Time with Patient: Greater than 30
--- NOTE | 2018-10-28 09:43 | P.PN ---
Subjective Patient is seen in follow-up for acute kidney injury, currently hemodialysis dependent. Patient underwent aortobifemoral bypass graft on 10/07/2018 with right common femoral thromboendarterectomy. He's been off vasopressors since October 20. Urine output improved with IV Lasix - 2.3 L in last 24 hours. Patient underwent tracheostomy on October 22. He also had a tunnel subclavian catheter placed for dialysis. Remains edematous. He was noted to have bleeding from the tracheostomy site on October 24 and was evaluated by surgery. Small areas of oo zing along the skin edges was notified and was controlled with cautery. He also had a PEG tube placed and is noted to have oozing around the site. He is currently seen while undergoing hemodialysis. Vital signs are stable. General: The patient appeared well nourished and normally developed. Tr acheostomy noted. HEENT: Head exam is unremarkable. Neck is without jugular venous distension. LUNGS: Breath sounds decreased. HEART: Rate and Rhythm are regular. First and second heart sounds normal. No murmurs, rubs or gallops. ABDOMEN: Bowel sounds present. Soft. EXTREMITITES: 2+ edema. No obvious drainage noted. Scrotal edema noted. Objective - Vital Signs Vital signs: Vital Signs Temp 98.8 F 10/28/18 08:00 Pulse 101 H 10/28/18 09:32 Resp 17 10/28/18 09:00 BP 129/78 10/28/18 09:00 Pulse Ox 97 10/28/18 09:00 Intake & Output 10/27/18 10/28/18 10/28/18 18:59 06:59 18:59 Intake Total 792.385 638.36 30 Output Total 900 1475 235 Balance -107.615 -836.64 -205 Weight 105.8 kg Intake: IV 120 120 30 Normal Saline carrier 120 120 30 Intake, IV Titration 232.385 143.36 Amount Heparin Sod,Pork in 0.45% 232.385 143.36 NaCl 25,000 unit In 0.45 % NaCl 1 250ml.bag @ 18 UNITS/KG/HR 20.682 mls/hr IV .Q12H6M [facility] Rx#: [id number] Tube Feeding 350 315 Other 90 60 Output: Urine 900 1475 235 Other: Voiding Method Indwelling Catheter Indwelling Catheter # Bowel Movements 1 1 ABP, PAP, CO, CI - Last Documented Arterial Blood Pressure 145/62 - Labs CBC & Chem 7: 10/28/18 04:28 10/28/18 04:28 Labs: Abnormal Lab Results - Last 24 Hours (Table) 10/27/18 10/27/18 10/27/18 Range/Units 11:59 12:30 19:01 RBC (4.30-5.90) m/uL Hgb (13.0-17.5) gm/dL Hct (39.0-53.0) % RDW (11.5-15.5) % Lymphocytes # (1.0-4.8) k/uL APTT 81.3 H 73.6 H (22.0-30.0) sec Carbon Dioxide (22-30) mmol/L BUN (9-20) mg/dL Creatinine (0.66-1.25) mg/dL POC Glucose (mg/dL) 110 H (75-99) mg/dL Phosphorus (2.5-4.5) mg/dL 10/28/18 10/28/18 10/28/18 Range/Units 04:28 04:28 04:28 RBC 2.63 L (4.30-5.90) m/uL Hgb 7.6 L (13.0-17.5) gm/dL Hct 23.7 L (39.0-53.0) % RDW 16.3 H (11.5-15.5) % Lymphocytes # 0.8 L (1.0-4.8) k/uL APTT 47.2 H (22.0-30.0) sec Carbon Dioxide 21 L (22-30) mmol/L BUN 93 H (9-20) mg/dL Creatinine 5.31 H (0.66-1.25) mg/dL POC Glucose (mg/dL) (75-99) mg/dL Phosphorus 7.9 H (2.5-4.5) mg/dL Microbiology - Last 24 Hours (Table) 10/21/18 23:49 Blood Culture - Final Blood No Growth after 144 hours 10/22/18 23:24 Blood Culture - Preliminary Blood No Growth after 120 hours 10/22/18 22:50 Blood Culture - Preliminary Blood No Growth after 120 hours 10/23/18 11:15 Blood Culture - Preliminary Blood No Growth after 96 hours 10/23/18 11:20 Blood Culture - Preliminary Blood No Growth after 96 hours Assessment and Plan Plan: Assessment: 1. Acute kidney injury secondary to ATN secondary to hypotension and contrast- induced nephropathy. Currently hemodialysis dependent. No evidence of renal recovery at this time. Patient's creatinine in August 2018 was in the range of 1.3-1.7. 2. 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 Vascular surgery following. 3. Volume overload. 4. A. fib with RVR. Now rate controlled. 5. Chronic kidney disease stage III secondary to nephrosclerosis. Baseline creatinine in the range of 1.3-1.7. 6. Anemia of chronic illness. High ferritin level noted. Maintained on Aranesp. Component of acute blood loss secondary to bleeding from the tracheostomy/PEG tube site. 7. Hypervolemic hyponatremia. Better. 8. Ileus. Now receiving PEG tube feedings. 9. Hyperphosphatemia secondary to acute kidney injury maintained on PhosLo. Improves postdialysis. Plan: Currently seen while undergoing hemodialysis. Will try for 3-4 L ultrafiltration. Maintain IV Lasix 80 mg twice daily. Continue to monitor renal function and urine output. Monitor vancomycin levels. Target level below 20. I will give him another dose of DDAVP today.
[2018-10-28] MEDS ORDERED: DESMOPRESSIN ACETATE 32 MCG in SODIUM CHLORIDE 0.9% 50 ML IVPB ONE (10:00)
[2018-10-28] MEDS: HYDROmorphone 1 MG/ML 1 ML SYRINGE IVP PRN ×2 (11:17→20:31)
[2018-10-28 11:29] VITALS: BMI 35.4
[2018-10-28 11:51] LABS: Glucose,Whole Blood 101 mg/dL (75-99)
[2018-10-28] MEDS: FUROSEMIDE 10 MG/ML 10 ML VIAL IV SCH ×2 (12:04→21:57)
[2018-10-28] MEDS: PANTOPRAZOLE 40 MG/10 ML VIAL IVP SCH (12:05)
[2018-10-28] MEDS: CALCIUM ACETATE 667 MG CAP PO SCH ×2 (12:23→15:40)
[2018-10-28] MEDS: FENOFIBRATE 160 MG TAB PO SCH (12:23)
[2018-10-28] MEDS: AMIODARONE 200 MG TAB PO SCH ×2 (12:23→20:30)
[2018-10-28] MEDS: BISACODYL 10 MG SUPP RECTAL SCH (12:23)
[2018-10-28] MEDS: ASPIRIN 81 MG PO SCH (12:23)
[2018-10-28] MEDS: GABAPENTIN 300 MG CAP PO SCH ×3 (12:24→20:30)
[2018-10-28] MEDS: HEPARIN SOD,PORK IN 0.45% NACL 25,000 UNIT in 0.45% NACL 1 250ML.BAG IV SCH (12:24)
[2018-10-28] MEDS: COLLAGENASE 250 UNIT/GM OINTMENT 30 GM TUBE TOPICAL SCH (12:27)
--- NOTE | 2018-10-28 12:58 | P.PN ---
<Chasidy Doe Perfecto - Last Filed: 10/28/18 12:48> Subjective Progress Note Date: 10/28/18 CHIEF COMPLAINT: Respiratory failure HISTORY OF PRESENT ILLNESS: Patient is status post trach and PEG. He is examined at the bedside in the intensive care unit. Patient is awake and alert. Nursing reports overnight patient had an episode of small bright red blood when PEG tube residual was checked. Tube feeding was stopped. This morning PEG tube with a small amount of dark residual, but no further bright red blood throughout shift. Patient with nonbloody BM. Denies abdominal pain. Hemoglobin remains stable at 7.6. PHYSICAL EXAM: VITAL SIGNS: Reviewed. GENERAL: Well-developed in no acute distress. HEENT: Trach to trach collar. No sclera icterus. Extraocular movements grossly intact. Moist buccal mucosa. Head is atraumatic, normocephalic. ABDOMEN: Soft. Nontender. Ofe to midline incision. PEG with no active bleeding noted. Evidence of old bloody drainage on dressing. NEUROLOGIC: Alert and oriented. Cranial nerves II through XII grossly intact. ASSESSMENT: 1. Acute hypoxic respiratory failure PLAN: Resume tube feeds. Begin at 10cc and advance slowly. Check residuals per protocol and monitor for blood. Monitor hemoglobin. Nurse practitioner note has been reviewed by physician. Signing provider agrees with the documented findings, assessment, and plan of care. Objective - Vital Signs Vital signs: Vital Signs Temp 98.8 F 10/28/18 12:31 Pulse 106 H 10/28/18 12:46 Resp 18 10/28/18 12:31 BP 102/59 10/28/18 12:31 Pulse Ox 93 L 10/28/18 12:00 Intake & Output 10/27/18 10/28/18 10/28/18 18:59 06:59 18:59 Intake Total 792.385 638.36 410 Output Total 900 7385 5015 Balance -107.615 -836.64 -4925 Weight 105.8 kg 105.8 kg Intake: IV 120 120 160 Desmopressin Acetate 25 50 mcg In Sodium Chloride 0. 9% 50 ml @ 200 mls/hr IVPB ONCE ONE Rx#: [id number] Normal Saline carrier 120 120 60 cefTRIAXone 2 gm In 50 Sodium Chloride 0.9% 50 ml @ 100 mls/hr IVPB Q24HR [facility] Rx#:[id number] Intake, IV Titration 232.385 143.36 250 Amount Heparin Sod,Pork in 0.45% 232.385 143.36 250 NaCl 25,000 unit In 0.45 % NaCl 1 250ml.bag @ 18 UNITS/KG/HR 20.682 mls/hr IV .Q12H6M [facility] Rx#: [id number] Tube Feeding 350 315 Other 90 60 Output: Urine 900 1475 345 Hemodialysis 4000 Other: Voiding Method Indwelling Catheter Indwelling Catheter Indwelling Catheter # Bowel Movements 1 1 ABP, PAP, CO, CI - Last Documented Arterial Blood Pressure 145/62 - Labs CBC & Chem 7: 10/28/18 04:28 10/28/18 04:28 Labs: Abnormal Lab Results - Last 24 Hours (Table) 10/27/18 10/27/18 10/28/18 Range/Units 12:30 19:01 04:28 RBC (4.30-5.90) m/uL Hgb (13.0-17.5) gm/dL Hct (39.0-53.0) % RDW (11.5-15.5) % Lymphocytes # (1.0-4.8) k/uL APTT 81.3 H 73.6 H (22.0-30.0) sec Carbon Dioxide 21 L (22-30) mmol/L BUN 93 H (9-20) mg/dL Creatinine 5.31 H (0.66-1.25) mg/dL POC Glucose (mg/dL) (75-99) mg/dL Phosphorus 7.9 H (2.5-4.5) mg/dL 10/28/18 10/28/18 10/28/18 Range/Units 04:28 04:28 11:49 RBC 2.63 L (4.30-5.90) m/uL Hgb 7.6 L (13.0-17.5) gm/dL Hct 23.7 L (39.0-53.0) % RDW 16.3 H (11.5-15.5) % Lymphocytes # 0.8 L (1.0-4.8) k/uL APTT 47.2 H (22.0-30.0) sec Carbon Dioxide (22-30) mmol/L BUN (9-20) mg/dL Creatinine (0.66-1.25) mg/dL POC Glucose (mg/dL) 101 H (75-99) mg/dL Phosphorus (2.5-4.5) mg/dL Microbiology - Last 24 Hours (Table) 10/21/18 23:49 Blood Culture - Final Blood No Growth after 144 hours 10/22/18 23:24 Blood Culture - Preliminary Blood No Growth after 120 hours 10/22/18 22:50 Blood Culture - Preliminary Blood No Growth after 120 hours 10/23/18 11:15 Blood Culture - Preliminary Blood No Growth after 96 hours 10/23/18 11:20 Blood Culture - Preliminary Blood No Growth after 96 hours <Thomas Avitia - Last Filed: 10/28/18 16:10> Subjective As above. Patient had episodes of bleeding from the gastrostomy tube today. That has stopped. Agree with resuming tube feeds at low-dose. Both trach and PEG tube without evidence of bleeding or infection currently. Objective - Vital Signs Vital signs: Vital Signs Temp 98.8 F 10/28/18 12:31 Pulse 100 10/28/18 15:50 Resp 22 10/28/18 15:50 BP 118/66 10/28/18 15:00 Pulse Ox 96 10/28/18 15:00 Intake & Output 10/27/18 10/28/18 10/28/18 18:59 06:59 18:59 Intake Total 792.385 638.36 494.799 Output Total 900 1475 4425 Balance -107.615 -836.64 -3930.201 Weight 105.8 kg 105.8 kg Intake: IV 120 120 190 Desmopressin Acetate 25 50 mcg In Sodium Chloride 0. 9% 50 ml @ 200 mls/hr IVPB ONCE ONE Rx#: [id number] Normal Saline carrier 120 120 90 cefTRIAXone 2 gm In 50 Sodium Chloride 0.9% 50 ml @ 100 mls/hr IVPB Q24HR [facility] Rx#:[id number] Intake, IV Titration 232.385 143.36 274.799 Amount Heparin Sod,Pork in 0.45% 232.385 143.36 274.799 NaCl 25,000 unit In 0.45 % NaCl 1 250ml.bag @ 18 UNITS/KG/HR 20.682 mls/hr IV .Q12H6M [facility] Rx#: [id number] Tube Feeding 350 315 30 Other 90 60 Output: Urine 900 1475 425 Hemodialysis 4000 Other: Voiding Method Indwelling Catheter Indwelling Catheter Indwelling Catheter # Bowel Movements 1 1 ABP, PAP, CO, CI - Last Documented Arterial Blood Pressure 145/62 - Labs CBC & Chem 7: 10/28/18 04:28 10/28/18 04:28 Labs: Abnormal Lab Results - Last 24 Hours (Table) 10/27/18 10/28/18 10/28/18 Range/Units 19:01 04:28 04:28 RBC 2.63 L (4.30-5.90) m/uL Hgb 7.6 L (13.0-17.5) gm/dL Hct 23.7 L (39.0-53.0) % RDW 16.3 H (11.5-15.5) % Lymphocytes # 0.8 L (1.0-4.8) k/uL APTT 73.6 H (22.0-30.0) sec Carbon Dioxide 21 L (22-30) mmol/L BUN 93 H (9-20) mg/dL Creatinine 5.31 H (0.66-1.25) mg/dL POC Glucose (mg/dL) (75-99) mg/dL Phosphorus 7.9 H (2.5-4.5) mg/dL 10/28/18 10/28/18 10/28/18 Range/Units 04:28 11:49 12:01 RBC (4.30-5.90) m/uL Hgb (13.0-17.5) gm/dL Hct (39.0-53.0) % RDW (11.5-15.5) % Lymphocytes # (1.0-4.8) k/uL APTT 47.2 H 86.3 H (22.0-30.0) sec Carbon Dioxide (22-30) mmol/L BUN (9-20) mg/dL Creatinine (0.66-1.25) mg/dL POC Glucose (mg/dL) 101 H (75-99) mg/dL Phosphorus (2.5-4.5) mg/dL Microbiology - Last 24 Hours (Table) 10/23/18 11:15 Blood Culture - Preliminary Blood No Growth after 120 hours 10/23/18 11:20 Blood Culture - Preliminary Blood No Growth after 120 hours 10/21/18 23:49 Blood Culture - Final Blood No Growth after 144 hours 10/22/18 23:24 Blood Culture - Preliminary Blood No Growth after 120 hours 10/22/18 22:50 Blood Culture - Preliminary Blood No Growth after 120 hours Assessment and Plan (1) Respiratory failure Current Visit: Yes Status: Acute Code(s): J96.90 - RESPIRATORY FAILURE, UNSP, UNSP W HYPOXIA OR HYPERCAPNIA SNOMED Code(s): 744217310
--- NOTE | 2018-10-28 13:48 | CDI ---
Documentation Clarification Form Date: 10/28/2018 1:18:13 PM From: Bobbi Cameron RN CCDS Admit Date: 10/07/2018 9:41:00 AM Patient Name: Ralph Agarwal Visit Number: [id number] Discharge Date: ATTENTION: The Clinical Documentation Specialists (CDI) and [facility] Coding Staff appreciate your assistance in clarifying documentation. Please respond to the clarification below the line at the bottom and electronically sign. The CDI & [facility] Coding staff will review the response and follow-up if needed. Please note: Queries are made part of the Legal Health Record. If you have any questions, please contact the author of this message via ITS. Dr. Ralph Zhao Conflicting documentation of the pressure ulcer of the buttock. In your consult Pressure ulcer of the buttock is documented In the Wound care orders santayl to the bilateral buttocks pressure ulcers cover with optifoam border dressing to each buttocks change daily. History/Risk Factors: 53 year old male presents to [facility] for elective Aortobifemoral artery bypass. Medical history of HTN, 30 pack year smoking history, ckd , Clinical Indicators: pt on tube feeds, tracheostomy, peg tube. Multiple surgeries. Treatment: Santayl, optiofoam border dressing. Daily. Elements for accurate and compliant documentation of an ulcer: *The location/laterality of the ulcer *Etiology (decubitus/pressure, diabetic, PVD) *Stage I-IV, Unstageable, Suspected Deep Tissue Injury (To the deepest stage) *If the ulcer was present at admission (POA) or occurred after admission In your professional opinion, can you please clarify the diagnosis, location, laterality and whether present on admission (POA): Right Buttock Pressure Ulcer with staging Left Buttock Pressure Ulcer with staging. Stage 1 Pressure/Decubitus Ulcer (intact skin, non-blanching redness of local area) Stage 2 Pressure/Decubitus Ulcer (Partial thickness, loss of dermis, pink wound bed) Stage 3 Pressure/Decubitus Ulcer (Full thickness tissue loss) Stage 4 Pressure/Decubitus Ulcer (Full thickness tissue loss with exposed bone, tendon, or muscle. May have slough or eschar present) Unstageable Other condition, please specify Unable to determine Please indicate etiology of pressure ulcer (if known). MTDD
--- NOTE | 2018-10-28 14:11 | CDI ---
Documentation Clarification Form Date: 10/28/2018 From: Bobbi Cameron RN CCDS Admit Date: 10/07/2018 9:41:00 AM Patient Name: Ralph Agarwal Visit Number: [id number] Discharge Date: ATTENTION: The Clinical Documentation Specialists (CDI) and [employer] Coding Staff appreciate your assistance in clarifying documentation. Please respond to the clarification below the line at the bottom and electronically sign. The CDI & [employer] Coding staff will review the response and follow-up if needed. Please note: Queries are made part of the Legal Health Record. If you have any questions, please contact the author of this message via ITS. Dr. Ralph Zhao Pressure Injury of deep tissue of right heel. Pressure Injury of deep tissue of left heel. Were documented in your consult. History/Risk Factors: 53 year old male presented to [facility] for elective arotobifemoral bypass graft. Med hx severe pvd ; htn hx of smoking , CKD Clinical Indicators: per the consult Presents of deep tissue injury of both heels Location: right and left heel deep tissue injury. Treatment: Elements for accurate and compliant documentation of an ulcer: *The location/laterality of the ulcer *Etiology (decubitus/pressure, diabetic, PVD) *Stage I-IV, Unstageable, Suspected Deep Tissue Injury (To the deepest stage) *If the ulcer was present at admission (POA) or occurred after admission In your professional opinion, can you please clarify the diagnosis, location, laterality and whether present on admission (POA): Pressure Injury of deep tissue Left heel ( with staging ) Pressure Injury of deep tissue Right heel ( with staging) Stage 1 Pressure/Decubitus Ulcer (intact skin, non-blanching redness of local area) Stage 2 Pressure/Decubitus Ulcer (Partial thickness, loss of dermis, pink wound bed) Stage 3 Pressure/Decubitus Ulcer (Full thickness tissue loss) Stage 4 Pressure/Decubitus Ulcer (Full thickness tissue loss with exposed bone, tendon, or muscle. May have slough or eschar present) * Unstageable Other condition, please specify Unable to determine Please indicate etiology of pressure ulcer (if known). MTDD
[2018-10-28] MEDS: NOREPINEPHRINE 32 MG in SODIUM CHLORIDE 0.9% 218 ML IV SCH (14:55)
[2018-10-28] MEDS ORDERED: LIDOCAINE 1% INJ 10MG/ML (20 ML MDV) SQ ONE (14:55)
--- NOTE | 2018-10-28 15:26 | XR ---
EXAMINATION TYPE: XR chest 1V confirm line [facility] DATE OF EXAM: 10/28/2018 COMPARISON: Prior chest x-ray dated 10/26/2018 HISTORY: PICC line placement TECHNIQUE: Single frontal view of the chest is obtained. FINDINGS: There is been interval placement of right-sided PICC line, distal tip is in the right atri um. Tracheostomy tube and right jugular central venous remain in place. No evident pneumothorax or pl eural effusion. Patient is rotated and there are overlying cardiac leads. IMPRESSION: No evident complication status post PICC line placement.
--- NOTE | 2018-10-28 16:08 | IR ---
EXAMINATION TYPE: IR cvc insert >=5 years DATE OF EXAM: 10/28/2018 COMPARISON: NONE HISTORY: Infection FINDINGS: Maximal barrier technique was utilized. The skin overlying the right basilic vein was loca lized with ultrasound and noted to be compressible and patent by ultrasound. An ultrasound image was obtained and submitted on patient's chart. Sterile technique utilized with the ultrasound machine. T he skin overlying was prepped and draped and Lidocaine used for local anesthesia. A skin jose was ma de with a scalpel. Access was gained to the vein under direct ultrasound guidance with a 21-gauge ne edle and a 0.018 inch wire was advanced. Access site was dilated with a peel-away sheath and the cat heter tailored to length. Catheter advanced centrally and a post procedure chest x-ray verified plac ement with the tip in the right atrium. Catheter was fixed to the skin and a sterile dressing placed . Hemostasis achieved and the catheter was aspirated and flushed with sterile saline. The patient r emained in stable condition. IMPRESSION: STATUS POST ULTRASOUND GUIDED PICC LINE PLACEMENT, READY FOR USE. THIS PROCEDURE WAS PER FORMED BY THE UNDERSIGNED.
[2018-10-28 18:02] LABS: Glucose,Whole Blood 104 mg/dL (75-99)
--- NOTE | 2018-10-28 19:32 | PN ---
PROGRESS NOTE DATE OF SERVICE: 10/28/2018 CHIEF COMPLAINT: Renal failure. HISTORY OF PRESENT ILLNESS: This gentleman is off the ventilator. His trach is in place as well as PEG tube. There has apparently been a little bit of bleeding around the PEG tube. He is still not making any urine, and the dialysis continues. PHYSICAL EXAMINATION: His eyes are open and he is much more alert. Breath sounds are heard on both sides, but there are significant rhonchi. There are scattered rales as well. Cardiac exam is normal. Abdomen is soft. IMPRESSION: 1. Status post aortofemoral bypass. 2. Peripheral vascular occlusive disease. 3. Anuric renal failure. 4. Chronic obstructive pulmonary disease. PLAN: Dialysis will continue. We will wait to see if he is able to swallow well enough to start feeding orally. MMODL / IJN: [id number] /
--- NOTE | 2018-10-28 21:41 | P.PN ---
Subjective Progress Note Date: 10/28/18 53-year-old male with multiple medical troubles including COPD and severe peripheral vascular disease. Upon his presentation to hospital was noted that he had a greater than one-year history of worsening claudication to the lower extremities. Family members relate that he get an appointment hemorrhages could barely move about because of the weakness and pain to his lower extremities. 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 The patient has had ongoing difficulties since that point in time. 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 He required reoperation with thrombectomy of the aorta and then of the right femoral component that of the left femoral component. His status continued to decline he developed worse anuradha renal failure and required dialysis catheter be placed and is now receiving hemodialysis also. When the left femoral portion of the graft occluded the patient developed severe swelling to the left calf area and underwent fasciotomies. He was having significant drainage from his areas which have now dried up and is evidence of the significant fasciotomy wounds that had drainage that has been somewhat foul. Is also developed bilateral deep tissue injuries to his heels and the significant eschar to his buttocks. With all of these difficulties the consult was requested. The patient has been hospitalized 14 days and it was noted originally cultures of the sputum showed evidence of Morax bessy and Haemophilus influenza. He has had significant leukocytosis also an ongoing respiratory failure. The fasciotomy procedure was on October 13. With evidence of concerns to the wounds the pneumonia and antibiotic needs the consult was requested. 10/22/2018 Patient has undergone tracheostomy and pruritic dialysis catheter placement today. Nursing relates tolerated dialysis today without difficulties. Nursing staff relates no difficulties with dressing changes. 10/23/2018 tracheostomy has been performed. IV access is in place for dialysis. His fevers have improved. There is evidence of blood culture with coagulase- negative staph which is of concern given his protracted difficulties. 10/28/2018 Patient remains in intensive care unit without other acute changes except the deep tissue injury to the left heel has now started to drain. The deep tissue injury to the coccyx has opened is now stage IV. Wound care with therahoney is applied to the coccyx. Left heel protected with a DuoDERM. Continue with offloading of the weight. He is on a specialty bed already. Antibiotic therapy continues vancomycin. Blood cultures are negative. Objective - Vital Signs Vital signs: Vital Signs Temp 98.4 F 10/28/18 16:00 Pulse 103 H 10/28/18 19:52 Resp 16 10/28/18 19:52 BP 124/65 10/28/18 19:00 Pulse Ox 96 10/28/18 19:00 Intake & Output 10/28/18 10/28/18 10/29/18 06:59 18:59 06:59 Intake Total 638.36 584.799 30 Output Total 1475 4515 30 Balance -836.64 -3930.201 0 Weight 105.8 kg 105.8 kg Intake: IV 120 220 10 Desmopressin Acetate 25 50 mcg In Sodium Chloride 0. 9% 50 ml @ 200 mls/hr IVPB ONCE ONE Rx#: [id number] Normal Saline carrier 120 120 10 cefTRIAXone 2 gm In 50 Sodium Chloride 0.9% 50 ml @ 100 mls/hr IVPB Q24HR [facility] Rx#:[id number] Intake, IV Titration 143.36 274.799 Amount Heparin Sod,Pork in 0.45% 143.36 274.799 NaCl 25,000 unit In 0.45 % NaCl 1 250ml.bag @ 18 UNITS/KG/HR 20.682 mls/hr IV .Q12H6M [facility] Rx#: [id number] Tube Feeding 315 90 20 Other 60 Output: Urine 1475 515 30 Hemodialysis 4000 Other: Voiding Method Indwelling Catheter Indwelling Catheter # Bowel Movements 1 ABP, PAP, CO, CI - Last Documented Arterial Blood Pressure 145/62 - Labs CBC & Chem 7: 10/28/18 04:28 10/28/18 04:28 Labs: Abnormal Lab Results - Last 24 Hours (Table) 10/28/18 10/28/18 10/28/18 Range/Units 04:28 04:28 04:28 RBC 2.63 L (4.30-5.90) m/uL Hgb 7.6 L (13.0-17.5) gm/dL Hct 23.7 L (39.0-53.0) % RDW 16.3 H (11.5-15.5) % Lymphocytes # 0.8 L (1.0-4.8) k/uL APTT 47.2 H (22.0-30.0) sec Carbon Dioxide 21 L (22-30) mmol/L BUN 93 H (9-20) mg/dL Creatinine 5.31 H (0.66-1.25) mg/dL POC Glucose (mg/dL) (75-99) mg/dL Phosphorus 7.9 H (2.5-4.5) mg/dL 10/28/18 10/28/18 10/28/18 Range/Units 11:49 12:01 18:01 RBC (4.30-5.90) m/uL Hgb (13.0-17.5) gm/dL Hct (39.0-53.0) % RDW (11.5-15.5) % Lymphocytes # (1.0-4.8) k/uL APTT 86.3 H (22.0-30.0) sec Carbon Dioxide (22-30) mmol/L BUN (9-20) mg/dL Creatinine (0.66-1.25) mg/dL POC Glucose (mg/dL) 101 H 104 H (75-99) mg/dL Phosphorus (2.5-4.5) mg/dL Microbiology - Last 24 Hours (Table) 10/23/18 11:15 Blood Culture - Preliminary Blood No Growth after 120 hours 10/23/18 11:20 Blood Culture - Preliminary Blood No Growth after 120 hours 10/21/18 23:49 Blood Culture - Final Blood No Growth after 144 hours 10/22/18 23:24 Blood Culture - Preliminary Blood No Growth after 120 hours 10/22/18 22:50 Blood Culture - Preliminary Blood No Growth after 120 hours Assessment and Plan (1) Atherosclerosis of [place] artery of both lower extremities with intermittent claudication Current Visit: Yes Status: Acute Code(s): I70.213 - ATHSCL [place] ARTERIES OF EXTRM W INTRMT [place], BI LEGS SNOMED Code(s): 009394305480515 (2) Respiratory failure Current Visit: Yes Status: Acute Code(s): J96.90 - RESPIRATORY FAILURE, UNSP, UNSP W HYPOXIA OR HYPERCAPNIA SNOMED Code(s): 114142414 (3) Pressure ulcer of buttock Current Visit: Yes Status: Acute Code(s): L89.309 - PRESSURE ULCER OF UNSPECIFIED BUTTOCK, UNSPECIFIED STAGE SNOMED Code(s): 489041311 (4) Pressure injury of deep tissue of left heel Current Visit: Yes Status: Acute Code(s): L89.629 - PRESSURE ULCER OF LEFT HEEL, UNSPECIFIED STAGE SNOMED Code(s): 554940584 (5) Pressure injury of deep tissue of right heel Current Visit: Yes Status: Acute Code(s): L89.619 - PRESSURE ULCER OF RIGHT HEEL, UNSPECIFIED STAGE SNOMED Code(s): 126092109
[2018-10-28 23:37] LABS: Glucose,Whole Blood 107 mg/dL (75-99)
[2018-10-29] MEDS: HEPARIN SOD,PORK IN 0.45% NACL 25,000 UNIT in 0.45% NACL 1 250ML.BAG IV SCH ×2 (01:37→15:08)
[2018-10-29] MEDS: HYDROmorphone 1 MG/ML 1 ML SYRINGE IVP PRN ×3 (04:02→17:23)
[2018-10-29 05:52] LABS: Potassium 3.9 mmol/L (3.5-5.1)
[2018-10-29 05:57] LABS: Vancomycin,Random 20.9 ug/mL
[2018-10-29 06:00] LABS: Basophils % (A) 1 %; Eosinophils # (A) 0.3 k/uL (0-0.7); Eosinophils % (A) 5 %; HCT 21.6 % (39.0-53.0); Hypochromasia Slight; Lymphocytes # (A) 0.8 k/uL (1.0-4.8); Lymphocytes % (A) 14 %; MCH 28.8 pg (25.0-35.0); Mean Platelet Volume 7.6; Monocytes # (A) 0.5 k/uL (0-1.0); Monocytes % (A) 7 %; Neutrophils # (A) 4.3 k/uL (1.3-7.7); Neutrophils % (A) 70 %; Platelet Count 264 k/uL (150-450); RDW 15.9 % (11.5-15.5); WBC 6.2 k/uL (3.8-10.6)
[2018-10-29 06:02] LABS: HGB 6.9 gm/dL (13.0-17.5)
[2018-10-29 06:11] LABS: Glucose,Whole Blood 116 mg/dL (75-99)
[2018-10-29] MEDS: IPRATROPIUM-ALBUTEROL 3 ML NEB INHALATION SCH ×4 (07:24→22:58)
--- NOTE | 2018-10-29 08:40 | P.PN ---
Subjective Progress Note Date: 10/29/18 Principal diagnosis: Peripheral vascular disease, aortoiliac occlusive disease with severe claudication, status post aortobifemoral bypass grafting, ARDS, acute hypoxemic respiratory failure, requiring ventilator support, and subsequent tracheostomy and PEG tube On 10/20/2018 of seeing this patient for a follow-up. The patient is sedated on 30 mics of propofol. He was able to come off sedation adequately yesterday as the patient became restless and they suggested a mechanical ventilator. This morning it is back on sedation. He was on a PEEP of 11 with an FiO2 of 40% and a rate of 400 and respiratory rate of 32. I realize that the patient ever pressure lower and he was sucking way higher tidal volumes as with provided to him through the mechanical ventilator. Based on that, switch this patient to a VC plus mode and increase the tidal volume to 500 and dropped a respiratory rate up to 24 and dropped PEEP down to 9 keeping the FiO2 at 40% and the chest x-ray shows improvement of breath and pulmonary infiltrates. The patient's airway pressure steadily on the decline. Lower lobe consolidation improving and the patient is currently on IV meropenem. He is on TPN for nutritional support. Abdomen is slightly distended and hypoactive bowel sounds. Orogastric tube is in place. Surgical abdominal wound site is dry clean and intact. The groin wounds are clean and intact. Pulses in the lower extremities are obtained and measured by Doppler. He has undergone 4 sessions of hemodialysis and the laceration was done yesterday without any complication with significant ultrafiltration. He is afebrile. He is hemodynamically stable on no pressors and both of vasopressin and levo fed has been discontinued. I am thinking and the patient will be a difficult wean and is reasonable to consider a PEG and trach special with above-mentioned medical problems and comorbidities encountered over the past 1 week. His white cell count is 17. Hemoglobin stable at 8.0. The patient remains on IV heparin. PH is 7.49 with a pCO2 of 38 and pO2 of 103. There is scrotal edema which is also improving. Reevaluated today on 10/21/2018, patient remains on mechanical ventilation, sedated, presently on assist control rate of 22, FiO2 of 45%, tidal volume of 500, and PEEP of 6. patient is actually on volume control plus mode of mechanical ventilation. Hence his tidal volume varies from breast of breath. I was able to drop the PEEP down to 6 today. Patient seems to be ventilating quite well. He is hemodynamically stable today, off all pressors, remains on a ntibiotics for left lower lobe consolidation and fever, he is on Merrem. Remains on TPN, and he may undergo tracheostomy and PEG tube placement today by Dr. rodriguez. However he is yet to have his dialysis this morning.WBC count is 15.8 hemoglobin is 7.7. ABG this morning showed a pO2 of 122 pCO2 of 37 pH of 7.46.worsening renal profile is noted today, BUN is 66 creatinine is 5.03, patient remains oliguric, roughly about 30 mL of urine per shift. Patient was reevaluated today on , remains on mechanical ventilation. Patient was reevaluated today on 10/22/2018, remains on mechanical ventilation, he is now on assist control rate of 22, tidal volume of 500/volume control plus, FiO2 45%, PEEP of 6. Remains on propofol at 20 mcg/kg/m, patient is arousable, seems to follow simple instructions, presently on dialysis. Patient is scheduled to undergo tracheostomy and possible PEG tube placement today. Chest x-ray showed diffuse interstitial pattern with bilateral small effusions greater on the left. The findings are suggestive of resolving ARDS, doubt cardiogenic pulmonary edema. Although the possibility of interstitial edema is not entirely ruled out considering the patient is oliguric, and he is requiring daily hemodialysis at this point. Labs today showed hemoglobin of 7.4 WBC count of 12.9. ABG showed a pO2 of 96 pCO2 of 36 pH of 7.48 Reevaluated today on 10/23/2018, patient remains on mechanical ventilation, underwent tracheostomy today, but no PEG tube was placed. Patient remains on same ventilator settings, assist control rate of 22, tidal volume 500+ FiO2 45% PEEP 6. Patient had an uneventful tracheostomy however there is evidence of some leak and volume loss around the tracheostomy site. And what is more concerning today is the fact that the patient had multiple positive blood cultures for what seems to be staph epidermidis, and I believe the patient may have catheter related sepsis from his catheters including his central line and arterial line. Most likely it is his left subclavian central line which would have to be removed today, and the tip will be cultured. I have instructed the nurses to call for a midline placement in the meantime the patient remains on antibiotics in the form of vancomycin. After 24 or 48 hours, decline may have to be placed. Patient remains sedated, he is on propofol, and I plan to taper the propofol down, assess his mental status. ABG today showed a pO2 of 110 pCO2 of 36 pH of 7.46 electrolytes were noted renal profile remains abnormal sodium is 129. Patient remains on dialysis and he is scheduled to undergo dialysis again today. Chest x-ray showed mild interstitial edema. And bibasilar atelectasis. Reevaluated today on 10/24/2018, patient remains on mechanical ventilation, he underwent a weaning trial with a pressure support of 8 and CPAP yesterday, tolerated at least a good 6 hours of weaning. However he was noted after 6 hours to become more agitated, restless, and tachycardic as well as tachypneic. Hence patient is back on assist control mode of mechanical ventilation, and patient is being considered for possible PEG tube placement today. His central line was discontinued yesterday and cultured, patient is now on vancomycin and Rocephin, evaluated by infectious disease again, and agreed with the plan to discontinue central line, patient is now being managed mostly with peripheral lines, and he will be on peripheral TPN. I plan to continue weaning trial today with a pressure support and CPAP, however if the patient is scheduled for a PEG tube placement, we will delay until the PEG tube is placed. Blood cultures from yesterday are pending. The tip of the catheter culture is pending. Patient will eventually need a PICC line placement hopefully in the next 24 hours. That means he would have received a good course of IV antibiotics for staph epidermidis catheter sepsis 4-48 hours before we proceed with another central line placement/PICC line. Patient is being dialyzed today, he is hemodynamically stable, not requiring any pressors. His ventilator settings are tidal volume of 500 assist control rate of 20 to FiO2 of 45% and PEEP is 6. In spite of being on a low dose of propofol, patient seems to be comprehending, and follows simple instructions. Reevaluated today on 10/25/2018, remains on mechanical ventilation, awake, extremely weak, follows very simple instructions. His ventilator settings are assist control rate of 20, volume 450 FiO2 50% PEEP of 5. Remains on hemodialysis on a daily basis, patient is presently off pressors, urine output is gradually improving about 25-50 mL per hour. Patient is status post tracheostomy on October 22. And he is status post PEG tube placement on October 24. Patient remains quite edematous. Awake, follows simple instructions, and today I plan to give him a trial of pressure support and CPAP again. However his pr essure support will be up to 10 and while I was at bedside, I noted that the patient is doing quite well with pressure support of 10, tidal volumes are in the 800-1000 range. And he seems to be comfortable on a pressure support with CPAP chest x-ray and labs were reviewed. Minimal interstitial edema noted on the chest x-ray. Reevaluated today on 10/26/2018, remains on mechanical ventilation, tolerated pressure support and CPAP was yesterday, and overnight he was placed on assist control mode of mechanical ventilation, and today I plan to place him back on pressure support of 8 and CPAP, may even consider a trach collar weaning if tolerated. Patient is status post PEG tube placement yesterday, and his TPN was switched to enteral feeding today. His ventilator settings this morning are ba sically the same as above. But I went ahead and place him on a pressure support of 8 and CPAP. FiO2 is 40%. Patient is being dialyzed today. He is on heparin, not requiring any pressors, he is in normal sinus rhythm, and hemodynamically stable. Patient opens eyes, follows very simple instructions, but seems to be generally weak, patient may have some component of critical illness polyneuropathy. Patient was reevaluated today on 10/27/2018, he is off mechanical ventilation, presently on trach collar at 55% since yesterday at 10 AM. Obviously the patient has been tolerating weaning quite well.no plans for hemodialysis today, patient is generally weak, remains on enteral feeding via PEG tube.hemoglobin today is 7.2, PTT is at 73.3, left lites are normal renal profile showed a BUN of 68 creatinine of 4.59 On 10/28/2018 she was seen in follow-up in the intensive care unit, he is awake and alert, he is on 28% trach collar, with a pulse ox of 97%, with dynamically stable, afebrile. 0.9 normal saline at rate of 20 ML per hour, and heparin per weight-based protocol, tube feedings are on hold. Lung sounds revealed coarse rhonchi, and his occasional cough, with thick sputum. Patient is having hemodialysis treatment right now. Fluid volume is improving, patient is down 0.5 kg in the last 24 hours, was edema is improving. Still has some 1+ pitting edema in upper and lower extremities. No Chest x-rays today. Today's labs have been reviewed, showing white blood cell, 7.5, hemoglobin 7.6, white count is 316, serum sodium is 137, potassium is 4.2, chloride is 101, CO2 is 21, BUN is 93 creatinine is 5.3. Remains generally weak, but denies any discomfort. Following command, mentation seems to be appropriate. On 10/29/2018 patient seen in follow-up in the intensive care unit, he is awake and alert, he is on 28% trach collar, he is following simple commands, he denies acute distress. Seems fairly comfortable, no use of accessory muscles of breathing, maintaining stable oxygenation, pulse ox is 95-96% on 28% trach collar. Lung sounds are positive for coarse rhonchi. No new chest x-ray today, no fever or chills, antibiotics have been discontinued, signs are stable, 0.9 normal saline at a rate of 20 ML per hour, tube feedings through the PEG tube in the form of Nepro at 35 ML per hour, with a goal of 35, with standard water flushes, at 30 mouth every 4 hours. Heparin drip per weight base protocol. Yesterday patient had hemodialysis, removal of 4 L of fluid. Generalized edema is improving. It is labs have been reviewed, showing white blood cell count is 6.2, hemoglobin is 6.9, serum sodium is 1:30, potassium 3.9, chloride is 103, CO2 is 21, B1 is 84, creatinine is 5.01. Arrangements are in progress for placement to long-term vent facility, possibly today. Objective - Vital Signs Vital signs: Vital Signs Temp 98.9 F 10/29/18 04:00 Pulse 90 10/29/18 07:43 Resp 12 10/29/18 07:00 BP 141/84 10/29/18 07:00 Pulse Ox 96 10/29/18 07:25 Intake & Output 10/28/18 10/29/18 10/29/18 18:59 06:59 18:59 Intake Total 584.799 820.596 10 Output Total 4515 345 30 Balance -3930.201 475.596 -20 Weight 105.8 kg 105.8 kg Intake: IV 220 120 10 Desmopressin Acetate 25 50 mcg In Sodium Chloride 0. 9% 50 ml @ 200 mls/hr IVPB ONCE ONE Rx#: [id number] Normal Saline carrier 120 120 10 cefTRIAXone 2 gm In 50 Sodium Chloride 0.9% 50 ml @ 100 mls/hr IVPB Q24HR [facility] Rx#:[id number] Intake, IV Titration 274.799 220.596 Amount Heparin Sod,Pork in 0.45% 274.799 220.596 NaCl 25,000 unit In 0.45 % NaCl 1 250ml.bag @ 18 UNITS/KG/HR 20.682 mls/hr IV .Q12H6M [facility] Rx#: [id number] Tube Feeding 90 390 Other 90 Output: Urine 515 345 30 Hemodialysis 4000 Other: Voiding Method Indwelling Catheter Indwelling Catheter # Bowel Movements 1 ABP, PAP, CO, CI - Last Documented Arterial Blood Pressure 145/62 - Exam GENERAL EXAM: Alert, 53-year-old white male, on 28% trach collar resting in bed. HEAD: Normocephalic/atraumatic. EYES: Normal reaction of pupils, equal size. Conjunctiva pink, sclera white. NOSE: Clear with pink turbinates. THROAT: No erythema or exudates. NECK: No masses, no JVD, no thyroid enlargement, no adenopathy. Midline tracheostomy, with a trach collar, will amount of sputum from the tracheostomy CHEST: No chest wall deformity. Symmetrical expansion. LUNGS: Equal air entry with coarse rhonchi CVS: Regular rate and rhythm, normal S1 and S2, no gallops, no murmurs, no rubs ABDOMEN: Soft, nontender. No hepatosplenomegaly, normal bowel sounds, no guarding or rigidity. Midabdominal and Bilateral groin incisions, PEG tube is intact EXTREMITIES: No clubbing, 2+ upper and lower extremity edema, no cyanosis, post tibial pulses palpable, no palpable pedal pulses and upper and lower extremities. MUSCULOSKELETAL: Muscle strength and tone normal. SPINE: No scoliosis or deformity SKIN: No rashes CENTRAL NERVOUS SYSTEM: Alert and oriented -2, person and place PSYCHIATRIC: Alert and oriented -3. Appropriate affect. Intact judgment and insight. - Labs CBC & Chem 7: 10/29/18 04:58 10/29/18 04:58 Labs: Abnormal Lab Results - Last 24 Hours (Table) 10/28/18 10/28/18 10/28/18 Range/Units 11:49 12:01 18:01 RBC (4.30-5.90) m/uL Hgb (13.0-17.5) gm/dL Hct (39.0-53.0) % RDW (11.5-15.5) % Lymphocytes # (1.0-4.8) k/uL APTT 86.3 H (22.0-30.0) sec Carbon Dioxide (22-30) mmol/L BUN (9-20) mg/dL Creatinine (0.66-1.25) mg/dL Glucose (74-99) mg/dL POC Glucose (mg/dL) 101 H 104 H (75-99) mg/dL 10/28/18 10/28/18 10/29/18 Range/Units 20:23 23:35 04:58 RBC (4.30-5.90) m/uL Hgb (13.0-17.5) gm/dL Hct (39.0-53.0) % RDW (11.5-15.5) % Lymphocytes # (1.0-4.8) k/uL APTT 59.3 H (22.0-30.0) sec Carbon Dioxide 21 L (22-30) mmol/L BUN 84 H (9-20) mg/dL Creatinine 5.01 H (0.66-1.25) mg/dL Glucose 103 H (74-99) mg/dL POC Glucose (mg/dL) 107 H (75-99) mg/dL 10/29/18 10/29/18 10/29/18 Range/Units 04:58 04:58 06:10 RBC 2.40 L (4.30-5.90) m/uL Hgb 6.9 L* (13.0-17.5) gm/dL Hct 21.6 L (39.0-53.0) % RDW 15.9 H (11.5-15.5) % Lymphocytes # 0.8 L (1.0-4.8) k/uL APTT 53.3 H (22.0-30.0) sec Carbon Dioxide (22-30) mmol/L BUN (9-20) mg/dL Creatinine (0.66-1.25) mg/dL Glucose (74-99) mg/dL POC Glucose (mg/dL) 116 H (75-99) mg/dL Microbiology - Last 24 Hours (Table) 10/22/18 23:24 Blood Culture - Final Blood No Growth after 144 hours 10/22/18 22:50 Blood Culture - Final Blood No Growth after 144 hours 10/23/18 11:15 Blood Culture - Preliminary Blood No Growth after 120 hours 10/23/18 11:20 Blood Culture - Preliminary Blood No Growth after 120 hours Assessment and Plan Plan: Assessment: 1 acute ventilator-dependent hypoxic respiratory failure secondary to pneumonia and ARDS. 2 peripheral vessel occlusive disease, status post aortobifemoral bypass surgery on 11/03/2018, with complicated course complicated by pneumonia and ARDS acute kidney injury 3 acute ischemic limbs postop requiring emergent thrombectomy on the right on 10/11/2018 and on the left on 10/23/2018. 4 acute septic shock is likely based on the fact that the patient required significant pressors at one point. However presently resolved. He is now he modynamically stable. 5 acute kidney injury/acute tubular necrosis secondary to sepsis. Patient re caitlin on hemodialysis. Has been receiving dialysis on a daily basis. 6 aortic dissection as noted on CT of the abdomen 7 chronic back pain 8 obesity/BMI of 39.3 9 deep tissue injury to his left heel 10 paroxysmal atrial fibrillation 11 status post tracheostomy and dialysis catheter placement on 10/22/2018. 12 status post PEG tube placement on 10/24/2018 12 strongly suspect catheter related sepsis from central line patient had multiple positive blood culture for staph epidermidis. Follow-up blood cultures after October 22 have been negative. No need to remove his dialysis catheter. 13 suspected critical illness polyneuropathy and profound weakness. Patient will eventually require significant and long time of rehabilitation. Plan: Patient remains stable, maintaining good oxygenation, fluid volume status is improving, will have another dialysis treatment today. Acute events overnight, elevating tube feedings. We'll check with Dr. Avitia how long the tracheostomy sutures have to stay in. We'll also inquire with rest to surgery in regards to the heparin infusion. Otherwise patient is stable for discharge to LTAC facility today. I performed a history & physical examination of the patient and discussed their management with my nurse practitioner, Shae Christiansen. I reviewed the nurse practitioner's note and agree with the documented findings and plan of care. Lung sounds are positive for coarse rhochi. The findings and the impression was discussed with the patient. I attest to the documentation by the nurse practitioner. Time with Patient: Greater than 30
[2018-10-29] MEDS: AMIODARONE 200 MG TAB PO SCH (09:30)
[2018-10-29] MEDS: CALCIUM ACETATE 667 MG CAP PO SCH ×2 (09:30→16:53)
[2018-10-29] MEDS: GABAPENTIN 300 MG CAP PO SCH ×2 (09:30→16:53)
[2018-10-29] MEDS: ASPIRIN 81 MG PO SCH (09:30)
[2018-10-29] MEDS: PANTOPRAZOLE 40 MG/10 ML VIAL IVP SCH (09:31)
[2018-10-29] MEDS: BISACODYL 10 MG SUPP RECTAL SCH (09:31)
[2018-10-29] MEDS: FENOFIBRATE 160 MG TAB PO SCH (09:37)
--- NOTE | 2018-10-29 09:46 | P.PN ---
Subjective Patient is seen in follow-up for acute kidney injury, currently hemodialysis dependent. Patient underwent aortobifemoral bypass graft on 10/07/2018 with right common femoral thromboendarterectomy. He's been off vasopressors since October 20. Urine output improved with IV Lasix but is now about 30 mL an hour. Patient underwent tracheostomy on October 22. He also had a tunnel subclavian catheter placed for dialysis. Remains edematous. He was noted to have bleeding from the tracheostomy site on October 24 and was evaluated by surgery. Small areas of oozing along the skin edges was notified and was controlled with cautery. He also had a PEG tube placed and had oozing around the site. He has been undergoing dialysis almost on a daily basis. Vital signs are stable. General: The patient appeared well nourished and normally developed. Trache ostomy noted. HEENT: Head exam is unremarkable. Neck is without jugular venous distension. LUNGS: Breath sounds decreased. HEART: Rate and Rhythm are regular. First and second heart sounds normal. No murmurs, rubs or gallops. ABDOMEN: Bowel sounds present. Soft. EXTREMITITES: 1+ edema. No obvious drainage noted. Scrotal edema noted. Objective - Vital Signs Vital signs: Vital Signs Temp 99.4 F 10/29/18 08:00 Pulse 90 10/29/18 09:01 Resp 13 10/29/18 09:01 BP 136/68 10/29/18 09:01 Pulse Ox 96 10/29/18 09:01 Intake & Output 10/28/18 10/29/18 10/29/18 18:59 06:59 18:59 Intake Total 584.799 820.596 200 Output Total 4515 345 60 Balance -3930.201 475.596 140 Weight 105.8 kg 105.8 kg 101.4 kg Intake: IV 220 120 30 Desmopressin Acetate 25 50 mcg In Sodium Chloride 0. 9% 50 ml @ 200 mls/hr IVPB ONCE ONE Rx#: [id number] Normal Saline carrier 120 120 30 cefTRIAXone 2 gm In 50 Sodium Chloride 0.9% 50 ml @ 100 mls/hr IVPB Q24HR [facility] Rx#:[id number] Intake, IV Titration 274.799 220.596 Amount Heparin Sod,Pork in 0.45% 274.799 220.596 NaCl 25,000 unit In 0.45 % NaCl 1 250ml.bag @ 18 UNITS/KG/HR 20.682 mls/hr IV .Q12H6M [facility] Rx#: [id number] Tube Feeding 90 390 140 Other 90 30 Output: Urine 515 345 60 Hemodialysis 4000 Other: Voiding Method Indwelling Catheter Indwelling Catheter Indwelling Catheter # Bowel Movements 1 ABP, PAP, CO, CI - Last Documented Arterial Blood Pressure 145/62 - Labs CBC & Chem 7: 10/29/18 04:58 10/29/18 04:58 Labs: Abnormal Lab Results - Last 24 Hours (Table) 10/28/18 10/28/18 10/28/18 Range/Units 11:49 12:01 18:01 RBC (4.30-5.90) m/uL Hgb (13.0-17.5) gm/dL Hct (39.0-53.0) % RDW (11.5-15.5) % Lymphocytes # (1.0-4.8) k/uL APTT 86.3 H (22.0-30.0) sec Carbon Dioxide (22-30) mmol/L BUN (9-20) mg/dL Creatinine (0.66-1.25) mg/dL Glucose (74-99) mg/dL POC Glucose (mg/dL) 101 H 104 H (75-99) mg/dL 10/28/18 10/28/18 10/29/18 Range/Units 20:23 23:35 04:58 RBC (4.30-5.90) m/uL Hgb (13.0-17.5) gm/dL Hct (39.0-53.0) % RDW (11.5-15.5) % Lymphocytes # (1.0-4.8) k/uL APTT 59.3 H (22.0-30.0) sec Carbon Dioxide 21 L (22-30) mmol/L BUN 84 H (9-20) mg/dL Creatinine 5.01 H (0.66-1.25) mg/dL Glucose 103 H (74-99) mg/dL POC Glucose (mg/dL) 107 H (75-99) mg/dL 10/29/18 10/29/18 10/29/18 Range/Units 04:58 04:58 06:10 RBC 2.40 L (4.30-5.90) m/uL Hgb 6.9 L* (13.0-17.5) gm/dL Hct 21.6 L (39.0-53.0) % RDW 15.9 H (11.5-15.5) % Lymphocytes # 0.8 L (1.0-4.8) k/uL APTT 53.3 H (22.0-30.0) sec Carbon Dioxide (22-30) mmol/L BUN (9-20) mg/dL Creatinine (0.66-1.25) mg/dL Glucose (74-99) mg/dL POC Glucose (mg/dL) 116 H (75-99) mg/dL Microbiology - Last 24 Hours (Table) 10/22/18 23:24 Blood Culture - Final Blood No Growth after 144 hours 10/22/18 22:50 Blood Culture - Final Blood No Growth after 144 hours 10/23/18 11:15 Blood Culture - Preliminary Blood No Growth after 120 hours 10/23/18 11:20 Blood Culture - Preliminary Blood No Growth after 120 hours Assessment and Plan Plan: Assessment: 1. Acute kidney injury secondary to ATN secondary to hypotension, sepsis and contrast-induced nephropathy. Currently hemodialysis dependent. No evidence of renal recovery at this time. Patient's creatinine in August 2018 was in the range of 1.3-1.7. 2. 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 Vascular surgery following. 3. Volume overload. Improving. 4. A. fib with RVR. Now rate controlled. 5. Chronic kidney disease stage III secondary to nephrosclerosis. Baseline creatinine in the range of 1.3-1.7. 6. Anemia of chronic illness. High ferritin level noted. Maintained on Aranesp. Component of acute blood loss secondary to bleeding from the trac heostomy/PEG tube site. Status post IV DDAVP. 7. Hypervolemic hyponatremia. Better. 8. Ileus. Now receiving PEG tube feedings. 9. Hyperphosphatemia secondary to acute kidney injury maintained on PhosLo. Improves postdialysis. Plan: Hemodialysis today. He will now be maintained on a Sunday schedule. I will change Lasix to 80 mg orally twice daily. Continue to monitor renal function and urine output. Monitor vancomycin levels. Target level below 20. Potential [facility].
[2018-10-29] MEDS: FUROSEMIDE 10 MG/ML 10 ML VIAL IV SCH (09:55)
[2018-10-29] MEDS ORDERED: FUROSEMIDE 80 MG TAB PO STA (10:04)
--- NOTE | 2018-10-29 11:34 | P.PN ---
<Chasidy Doe Perfecto - Last Filed: 10/29/18 11:32> Subjective Progress Note Date: 10/29/18 CHIEF COMPLAINT: Respiratory failure HISTORY OF PRESENT ILLNESS: Patient is status post trach and PEG. He is examined at the bedside in the intensive care unit. Patient is awake and alert. Patient is tolerating tube feedings at 35cc/hr which is his goal. Minimal residuals. No further bleeding noted in PEG tube. Patient denies abdominal pain. PHYSICAL EXAM: VITAL SIGNS: Reviewed. GENERAL: Well-developed in no acute distress. HEENT: Trach to trach collar. No evidence of bleeding or infection. No sclera icterus. Extraocular movements grossly intact. Moist buccal mucosa. Head is atraumatic, normocephalic. ABDOMEN: Soft. Nontender. [facility] to midline incision. PEG with no active bleeding noted. NEUROLOGIC: Alert and oriented. Cranial nerves II through XII grossly intact. ASSESSMENT: 1. Acute hypoxic respiratory failure PLAN: Continue tube feedings Trach sutures may be removed on 10/31/18 Nurse practitioner note has been reviewed by physician. Signing provider agrees with the documented findings, assessment, and plan of care. Objective - Vital Signs Vital signs: Vital Signs Temp 99.4 F 10/29/18 08:00 Pulse 77 10/29/18 11:00 Resp 12 10/29/18 11:00 BP 138/69 10/29/18 11:00 Pulse Ox 99 10/29/18 11:00 Intake & Output 10/28/18 10/29/18 10/29/18 18:59 06:59 18:59 Intake Total 584.799 820.596 290 Output Total 4515 345 80 Balance -3930.201 475.596 210 Weight 105.8 kg 105.8 kg 101.4 kg Intake: IV 220 120 50 Desmopressin Acetate 25 50 mcg In Sodium Chloride 0. 9% 50 ml @ 200 mls/hr IVPB ONCE ONE Rx#: [id number] Normal Saline carrier 120 120 50 cefTRIAXone 2 gm In 50 Sodium Chloride 0.9% 50 ml @ 100 mls/hr IVPB Q24HR [facility] Rx#:[id number] Intake, IV Titration 274.799 220.596 Amount Heparin Sod,Pork in 0.45% 274.799 220.596 NaCl 25,000 unit In 0.45 % NaCl 1 250ml.bag @ 18 UNITS/KG/HR 20.682 mls/hr IV .Q12H6M [facility] Rx#: [id number] Tube Feeding 90 390 210 Other 90 30 Output: Urine 515 345 80 Hemodialysis 4000 Other: Voiding Method Indwelling Catheter Indwelling Catheter Indwelling Catheter # Bowel Movements 1 ABP, PAP, CO, CI - Last Documented Arterial Blood Pressure 145/62 - Labs CBC & Chem 7: 10/29/18 04:58 10/29/18 04:58 Labs: Abnormal Lab Results - Last 24 Hours (Table) 10/28/18 10/28/18 10/28/18 Range/Units 11:49 12:01 18:01 RBC (4.30-5.90) m/uL Hgb (13.0-17.5) gm/dL Hct (39.0-53.0) % RDW (11.5-15.5) % Lymphocytes # (1.0-4.8) k/uL APTT 86.3 H (22.0-30.0) sec Carbon Dioxide (22-30) mmol/L BUN (9-20) mg/dL Creatinine (0.66-1.25) mg/dL Glucose (74-99) mg/dL POC Glucose (mg/dL) 101 H 104 H (75-99) mg/dL 10/28/18 10/28/18 10/29/18 Range/Units 20:23 23:35 04:58 RBC (4.30-5.90) m/uL Hgb (13.0-17.5) gm/dL Hct (39.0-53.0) % RDW (11.5-15.5) % Lymphocytes # (1.0-4.8) k/uL APTT 59.3 H (22.0-30.0) sec Carbon Dioxide 21 L (22-30) mmol/L BUN 84 H (9-20) mg/dL Creatinine 5.01 H (0.66-1.25) mg/dL Glucose 103 H (74-99) mg/dL POC Glucose (mg/dL) 107 H (75-99) mg/dL 10/29/18 10/29/18 10/29/18 Range/Units 04:58 04:58 06:10 RBC 2.40 L (4.30-5.90) m/uL Hgb 6.9 L* (13.0-17.5) gm/dL Hct 21.6 L (39.0-53.0) % RDW 15.9 H (11.5-15.5) % Lymphocytes # 0.8 L (1.0-4.8) k/uL APTT 53.3 H (22.0-30.0) sec Carbon Dioxide (22-30) mmol/L BUN (9-20) mg/dL Creatinine (0.66-1.25) mg/dL Glucose (74-99) mg/dL POC Glucose (mg/dL) 116 H (75-99) mg/dL Microbiology - Last 24 Hours (Table) 10/22/18 23:24 Blood Culture - Final Blood No Growth after 144 hours 10/22/18 22:50 Blood Culture - Final Blood No Growth after 144 hours 10/23/18 11:15 Blood Culture - Preliminary Blood No Growth after 120 hours 10/23/18 11:20 Blood Culture - Preliminary Blood No Growth after 120 hours <Thomas Avitia - Last Filed: 10/29/18 17:01> Subjective As above. Patient doing well today. Tolerating tube feeds. Possible transfer later today. Objective - Vital Signs Vital signs: Vital Signs Temp 98.7 F 10/29/18 16:00 Pulse 80 10/29/18 16:00 Resp 12 10/29/18 16:00 BP 114/67 10/29/18 16:00 Pulse Ox 99 10/29/18 16:00 Intake & Output 10/28/18 10/29/18 10/29/18 18:59 06:59 18:59 Intake Total 584.799 820.596 863.49 Output Total 5245 345 3985 Balance -3930.201 475.596 -3121.51 Weight 105.8 kg 105.8 kg 101.4 kg Intake: IV 220 120 100 Desmopressin Acetate 25 50 mcg In Sodium Chloride 0. 9% 50 ml @ 200 mls/hr IVPB ONCE ONE Rx#: [id number] Normal Saline carrier 120 120 100 cefTRIAXone 2 gm In 50 Sodium Chloride 0.9% 50 ml @ 100 mls/hr IVPB Q24HR [facility] Rx#:[id number] Intake, IV Titration 274.799 220.596 248.49 Amount Heparin Sod,Pork in 0.45% 274.799 220.596 248.49 NaCl 25,000 unit In 0.45 % NaCl 1 250ml.bag @ 18 UNITS/KG/HR 20.682 mls/hr IV .Q12H6M [facility] Rx#: [id number] Tube Feeding 90 390 455 Other 90 60 Output: Urine 515 345 285 Hemodialysis 4000 3700 Other: Voiding Method Indwelling Catheter Indwelling Catheter Indwelling Catheter # Bowel Movements 1 ABP, PAP, CO, CI - Last Documented Arterial Blood Pressure 145/62 - Labs CBC & Chem 7: 10/29/18 04:58 10/29/18 04:58 Labs: Abnormal Lab Results - Last 24 Hours (Table) 10/28/18 10/28/18 10/28/18 Range/Units 18:01 20:23 23:35 RBC (4.30-5.90) m/uL Hgb (13.0-17.5) gm/dL Hct (39.0-53.0) % RDW (11.5-15.5) % Lymphocytes # (1.0-4.8) k/uL APTT 59.3 H (22.0-30.0) sec Carbon Dioxide (22-30) mmol/L BUN (9-20) mg/dL Creatinine (0.66-1.25) mg/dL Glucose (74-99) mg/dL POC Glucose (mg/dL) 104 H 107 H (75-99) mg/dL 10/29/18 10/29/18 10/29/18 Range/Units 04:58 04:58 04:58 RBC 2.40 L (4.30-5.90) m/uL Hgb 6.9 L* (13.0-17.5) gm/dL Hct 21.6 L (39.0-53.0) % RDW 15.9 H (11.5-15.5) % Lymphocytes # 0.8 L (1.0-4.8) k/uL APTT 53.3 H (22.0-30.0) sec Carbon Dioxide 21 L (22-30) mmol/L BUN 84 H (9-20) mg/dL Creatinine 5.01 H (0.66-1.25) mg/dL Glucose 103 H (74-99) mg/dL POC Glucose (mg/dL) (75-99) mg/dL 10/29/18 Range/Units 06:10 RBC (4.30-5.90) m/uL Hgb (13.0-17.5) gm/dL Hct (39.0-53.0) % RDW (11.5-15.5) % Lymphocytes # (1.0-4.8) k/uL APTT (22.0-30.0) sec Carbon Dioxide (22-30) mmol/L BUN (9-20) mg/dL Creatinine (0.66-1.25) mg/dL Glucose (74-99) mg/dL POC Glucose (mg/dL) 116 H (75-99) mg/dL Microbiology - Last 24 Hours (Table) 10/23/18 11:15 Blood Culture - Final Blood No Growth after 144 hours 10/23/18 11:20 Blood Culture - Final Blood No Growth after 144 hours 10/22/18 23:24 Blood Culture - Final Blood No Growth after 144 hours 10/22/18 22:50 Blood Culture - Final Blood No Growth after 144 hours Assessment and Plan (1) Respiratory failure Current Visit: Yes Status: Acute Code(s): J96.90 - RESPIRATORY FAILURE, UNSP, UNSP W HYPOXIA OR HYPERCAPNIA SNOMED Code(s): 632966793
[2018-10-29 11:49] LABS: Glucose,Whole Blood 99 mg/dL (75-99)
--- NOTE | 2018-10-29 14:52 | P.PN ---
Subjective Progress Note Date: 10/29/18 Principal diagnosis: clotting In follow-up today patient is alert, he is currently trached, he is unable to verbally communicate, he is able to answer yes and no questions with nod his head, yes to pain as well as needing to go to the bathroom. I explained to him why the blood doctors were following him, I am not sure of his comprehension at this time. Objective - Vital Signs Vital signs: Vital Signs Temp 98.7 F 10/29/18 12:00 Pulse 92 10/29/18 13:00 Resp 12 10/29/18 13:00 BP 90/61 10/29/18 13:00 Pulse Ox 95 10/29/18 13:00 Intake & Output 10/28/18 10/29/18 10/29/18 18:59 06:59 18:59 Intake Total 584.799 820.596 480 Output Total 4515 345 260 Balance -3930.201 475.596 220 Weight 105.8 kg 105.8 kg 101.4 kg Intake: IV 220 120 70 Desmopressin Acetate 25 50 mcg In Sodium Chloride 0. 9% 50 ml @ 200 mls/hr IVPB ONCE ONE Rx#: [id number] Normal Saline carrier 120 120 70 cefTRIAXone 2 gm In 50 Sodium Chloride 0.9% 50 ml @ 100 mls/hr IVPB Q24HR [facility] Rx#:[id number] Intake, IV Titration 274.799 220.596 Amount Heparin Sod,Pork in 0.45% 274.799 220.596 NaCl 25,000 unit In 0.45 % NaCl 1 250ml.bag @ 18 UNITS/KG/HR 20.682 mls/hr IV .Q12H6M [facility] Rx#: [id number] Tube Feeding 90 390 350 Other 90 60 Output: Urine 515 345 260 Hemodialysis 4000 Other: Voiding Method Indwelling Catheter Indwelling Catheter Indwelling Catheter # Bowel Movements 1 ABP, PAP, CO, CI - Last Documented Arterial Blood Pressure 145/62 - Constitutional General appearance: Present: cooperative, mild distress - EENT Eyes: Present: anicteric sclerae, EOMI - Respiratory Respiratory: bilateral: rhonchi (scattered) - Cardiovascular Rhythm: regular Heart sounds: normal: S1, S2 Abnormal Heart Sounds: Absent: systolic murmur, diastolic murmur, rub, S3 Gallop, S4 Gallop, click, other - Gastrointestinal General gastrointestinal: Present: normal bowel sounds, soft - Integumentary Integumentary: Present: pale - Musculoskeletal Musculoskeletal: Present: generalized weakness - Psychiatric Psychiatric Comment(s): Alert, unable to determine orientation - Labs CBC & Chem 7: 10/29/18 04:58 10/29/18 04:58 Labs: Abnormal Lab Results - Last 24 Hours (Table) 10/28/18 10/28/18 10/28/18 Range/Units 18:01 20:23 23:35 RBC (4.30-5.90) m/uL Hgb (13.0-17.5) gm/dL Hct (39.0-53.0) % RDW (11.5-15.5) % Lymphocytes # (1.0-4.8) k/uL APTT 59.3 H (22.0-30.0) sec Carbon Dioxide (22-30) mmol/L BUN (9-20) mg/dL Creatinine (0.66-1.25) mg/dL Glucose (74-99) mg/dL POC Glucose (mg/dL) 104 H 107 H (75-99) mg/dL 10/29/18 10/29/18 10/29/18 Range/Units 04:58 04:58 04:58 RBC 2.40 L (4.30-5.90) m/uL Hgb 6.9 L* (13.0-17.5) gm/dL Hct 21.6 L (39.0-53.0) % RDW 15.9 H (11.5-15.5) % Lymphocytes # 0.8 L (1.0-4.8) k/uL APTT 53.3 H (22.0-30.0) sec Carbon Dioxide 21 L (22-30) mmol/L BUN 84 H (9-20) mg/dL Creatinine 5.01 H (0.66-1.25) mg/dL Glucose 103 H (74-99) mg/dL POC Glucose (mg/dL) (75-99) mg/dL 10/29/18 Range/Units 06:10 RBC (4.30-5.90) m/uL Hgb (13.0-17.5) gm/dL Hct (39.0-53.0) % RDW (11.5-15.5) % Lymphocytes # (1.0-4.8) k/uL APTT (22.0-30.0) sec Carbon Dioxide (22-30) mmol/L BUN (9-20) mg/dL Creatinine (0.66-1.25) mg/dL Glucose (74-99) mg/dL POC Glucose (mg/dL) 116 H (75-99) mg/dL Microbiology - Last 24 Hours (Table) 10/23/18 11:15 Blood Culture - Final Blood No Growth after 144 hours 10/23/18 11:20 Blood Culture - Final Blood No Growth after 144 hours 10/22/18 23:24 Blood Culture - Final Blood No Growth after 144 hours 10/22/18 22:50 Blood Culture - Final Blood No Growth after 144 hours Assessment and Plan (1) Blood clotting tendency Narrative/Plan: The rest of the hypercoagulable workup has returned. Despite positivity of some lab values the results may be skewed because of the current treatment. Nothing needs acute management. Patient remains on the heparin drip and aspirin at this time. After reviewing the chart there does not appear to be any further instances of clotting episodes. Patient just recently had a PICC line placed. This will be monitored for any evidence of DVT or superficial clotting. Continue anticoagulation and antiplatelet therapy as prescribed. Anticipate lifelong antiplatelet therapy. Anticoagulation will likely be prescribed but, will review with Planning Technician recommendations for duration. Current Visit: Yes Status: Acute Priority: High Code(s): D68.9 - COAGULATION DEFECT, UNSPECIFIED SNOMED Code(s): 477398324
[2018-10-29] MEDS: DARBEPOETIN ALFA 40 MCG/0.4 ML SYRINGE SQ SCH (15:10)
[2018-10-29] MEDS ORDERED: FUROSEMIDE 80 MG TAB PO SCH (16:00)
[2018-10-29 16:36] VITALS: TEMP 98.7
--- NOTE | 2018-10-29 17:52 | P.PN ---
Subjective Progress Note Date: 10/29/18 Principal diagnosis: Aortoiliac occlusive disease s/p Aortobifemoral bypass and takeback for open thrombectomy of aortobifemoral bypass and bilateral femoral-popliteal arteries Patient seen and examined. He is doing well. Awake, following commands. Vascular exam is stable per nursing. [facility]. Objective - Vital Signs Vital signs: Vital Signs Temp 98.7 F 10/29/18 16:00 Pulse 97 10/29/18 17:00 Resp 19 10/29/18 17:00 BP 124/71 10/29/18 17:00 Pulse Ox 97 10/29/18 17:00 Intake & Output 10/28/18 10/29/18 10/29/18 18:59 06:59 18:59 Intake Total 584.799 820.596 908.49 Output Total 4515 345 3995 Balance -3930.201 475.596 -3086.51 Weight 105.8 kg 105.8 kg 101.4 kg Intake: IV 220 120 110 Desmopressin Acetate 25 50 mcg In Sodium Chloride 0. 9% 50 ml @ 200 mls/hr IVPB ONCE ONE Rx#: [id number] Normal Saline carrier 120 120 110 cefTRIAXone 2 gm In 50 Sodium Chloride 0.9% 50 ml @ 100 mls/hr IVPB Q24HR [facility] Rx#:[id number] Intake, IV Titration 274.799 220.596 248.49 Amount Heparin Sod,Pork in 0.45% 274.799 220.596 248.49 NaCl 25,000 unit In 0.45 % NaCl 1 250ml.bag @ 18 UNITS/KG/HR 20.682 mls/hr IV .Q12H6M [facility] Rx#: [id number] Tube Feeding 90 390 490 Other 90 60 Output: Urine 515 345 295 Hemodialysis 4000 3700 Other: Voiding Method Indwelling Catheter Indwelling Catheter Indwelling Catheter # Bowel Movements 1 ABP, PAP, CO, CI - Last Documented Arterial Blood Pressure 145/62 - Exam Vented, awake, following commands Abdomen is soft, obese Midline incision, and bilateral groin incisions stable, no sign of infection. Right lower extremity is warm, with palpable DP pulse. Left lower extremity is warm with brisk capillary refill and palpable DP Left lower extremity fasciotomy sites clean without sign of infection. - Labs CBC & Chem 7: 10/29/18 04:58 10/29/18 04:58 Labs: Abnormal Lab Results - Last 24 Hours (Table) 10/28/18 10/28/18 10/28/18 Range/Units 18:01 20:23 23:35 RBC (4.30-5.90) m/uL Hgb (13.0-17.5) gm/dL Hct (39.0-53.0) % RDW (11.5-15.5) % Lymphocytes # (1.0-4.8) k/uL APTT 59.3 H (22.0-30.0) sec Carbon Dioxide (22-30) mmol/L BUN (9-20) mg/dL Creatinine (0.66-1.25) mg/dL Glucose (74-99) mg/dL POC Glucose (mg/dL) 104 H 107 H (75-99) mg/dL 10/29/18 10/29/18 10/29/18 Range/Units 04:58 04:58 04:58 RBC 2.40 L (4.30-5.90) m/uL Hgb 6.9 L* (13.0-17.5) gm/dL Hct 21.6 L (39.0-53.0) % RDW 15.9 H (11.5-15.5) % Lymphocytes # 0.8 L (1.0-4.8) k/uL APTT 53.3 H (22.0-30.0) sec Carbon Dioxide 21 L (22-30) mmol/L BUN 84 H (9-20) mg/dL Creatinine 5.01 H (0.66-1.25) mg/dL Glucose 103 H (74-99) mg/dL POC Glucose (mg/dL) (75-99) mg/dL 10/29/18 Range/Units 06:10 RBC (4.30-5.90) m/uL Hgb (13.0-17.5) gm/dL Hct (39.0-53.0) % RDW (11.5-15.5) % Lymphocytes # (1.0-4.8) k/uL APTT (22.0-30.0) sec Carbon Dioxide (22-30) mmol/L BUN (9-20) mg/dL Creatinine (0.66-1.25) mg/dL Glucose (74-99) mg/dL POC Glucose (mg/dL) 116 H (75-99) mg/dL Microbiology - Last 24 Hours (Table) 10/23/18 11:15 Blood Culture - Final Blood No Growth after 144 hours 10/23/18 11:20 Blood Culture - Final Blood No Growth after 144 hours 10/22/18 23:24 Blood Culture - Final Blood No Growth after 144 hours 10/22/18 22:50 Blood Culture - Final Blood No Growth after 144 hours Assessment and Plan Assessment: 1. S/P Aorto-bifemoral artery bypass secondary to aortoiliac occlusion 2. S/P Take back open thrombectomy of aorto-bifemoral bypass and bilateral lower extremities 3. S/P Take back open thrombectomy of the left femoral popliteal artery with patch angioplasty 4. Acute on chronic renal failure 5. Chronic nicotine dependance 6. Acute left lower extremity arterial occlusion 7. Acute respiratory failure, possible ARDS, PNA Plan: Removed fahad at bedside. Ok to transition to Xarelto from heparin drip. Follow up in 2 weeks after discharged from [facility].
[2018-10-29 18:05] LABS: Glucose,Whole Blood 103 mg/dL (75-99)
[2018-10-29 19:04] VITALS: RESP 11
--- NOTE | 2018-10-29 19:26 | DS ---
DISCHARGE SUMMARY CHIEF COMPLAINT: Aortic occlusive disease. HISTORY OF PRESENT ILLNESS/PHYSICAL EXAM: Details of this man's history and physical can be found in the initial workup. LABORATORY STUDIES: While he was in the hospital, he had laboratory studies, details of which can be found in the laboratory section of his chart. COURSE IN HOSPITAL: After admission, he was taken to the operating room for an elective aortofemoral bypass. Postoperatively, he immediately developed problems with respiratory failure. He then went on to develop ischemia of the left lower extremity, which required fasciotomy and thrombectomy. This restored circulation to that extremity. He then progressively had more and more difficulty with respiratory distress syndrome and then went into acute renal failure. He was maintained in ICU for several weeks and his care was managed by intensive medicine, cardiology, Med Renal, along with Cardiovascular surgery. He continued to be ventilator dependent and eventually became aneuric. He underwent tracheotomy and PEG tube placement. He then started to become a little bit more awake and alert, but he did not completely regain full cognitive function. He did not seem to have lateralizing neurologic issues. Because it was felt that he was going to require long-term respiratory and renal care on dialysis, arrangements were made for him to be transferred to a long-term subacute facility. FINAL DIAGNOSES: 1. Aortofemoral occlusive disease. 2. Atherosclerotic cardiovascular disease. 3. Chronic obstructive pulmonary disease. 4. Thrombosis, left lower extremity. 5. Compartment syndrome of the left lower extremity. 6. End-stage renal disease, on dialysis. 7. He is improved. MMODL / CARMINEN: [id number] /
[2018-10-29 20:26] VITALS: BP 126/72; PULSE 98
--- NOTE | 2018-10-29 20:48 | DS ---
DISCHARGE SUMMARY This was dictated before, and I had other information in front of me that I do not have now. CHIEF COMPLAINT: Aortoiliac occlusion disease. HISTORY OF PRESENT ILLNESS AND PHYSICAL EXAMINATION: Details of this man's history and physical can be found in the initial workup. LABORATORY STUDIES: While he was in the hospital he had laboratory studies, details of which can be found in the laboratory section of his chart. COURSE IN THE HOSPITAL: After admission he was placed on bedrest and taken to the operating room for aortofemoral bypass. This was complicated by development of a cool left lower extremity which resulted in thrombectomy of the left leg. He subsequently went on to get significant edema and compartment syndrome, which required fasciotomy. He also, as I recall, had intraabdominal bleeding that required his going back to the operating room. His course was then complicated by respiratory failure which grew steadily worse, and he had to be intubated. He was intubated for an extended period of time. He then went into renal failure and complete shutdown and oliguria. He was seen by Nephrology and eventually was started on dialysis. He was intubated for an extended period of time and eventually underwent a tracheostomy, at the same time PEG tube feeding. He was gradually taken off of respiratory support and began to awaken, but he had not regain full nervous system function. He had no signs of lateralizing deficit, however. Because it was recognized that he would require long-term intensive care, arrangements were made for him to go to , and he was to be transferred on October 29. FINAL DIAGNOSES: 1. Aortoiliac occlusive disease. 2. Atherosclerotic cardiovascular disease. 3. Postoperative intraabdominal hemorrhage. 4. Thrombus of the left lower extremity. 5. Left calf compartment syndrome. 6. Chronic obstructive pulmonary disease. 7. Adult respiratory distress syndrome. 8. Oliguric renal failure. OPERATIONS: Operations were numerous, including laparotomy, fasciotomy of the left calf, thrombectomy in the left leg, PEG tube placement, tracheostomy. CONSULTATIONS: 1. Cardiology. 2. Intensive Medicine. 3. Pulmonology. 4. Nephrology. 5. Vascular Surgery. He is improved. MMODL / IJN: [id number] /
--- NOTE | 2018-10-29 22:15 | P.PN ---
Subjective Progress Note Date: 10/29/18 53-year-old male with multiple medical troubles including COPD and severe peripheral vascular disease. Upon his presentation to hospital was noted that he had a greater than one-year history of worsening claudication to the lower extremities. Family members relate that he get an appointment hemorrhages could barely move about because of the weakness and pain to his lower extremities. 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 The patient has had ongoing difficulties since that point in time. 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 He required reoperation with thrombectomy of the aorta and then of the right femoral component that of the left femoral component. His status continued to decline he developed worse anuradha renal failure and required dialysis catheter be placed and is now receiving hemodialysis also. When the left femoral portion of the graft occluded the patient developed severe swelling to the left calf area and underwent fasciotomies. He was having significant drainage from his areas which have now dried up and is evidence of the significant fasciotomy wounds that had drainage that has been somewhat foul. Is also developed bilateral deep tissue injuries to his heels and the significant eschar to his buttocks. With all of these difficulties the consult was requested. The patient has been hospitalized 14 days and it was noted originally cultures of the sputum showed evidence of Morax bessy and Haemophilus influenza. He has had significant leukocytosis also an ongoing respiratory failure. The fasciotomy procedure was on October 13. With evidence of concerns to the wounds the pneumonia and antibiotic needs the consult was requested. 10/22/2018 Patient has undergone tracheostomy and pruritic dialysis catheter placement today. Nursing relates tolerated dialysis today without difficulties. Nursing staff relates no difficulties with dressing changes. 10/23/2018 tracheostomy has been performed. IV access is in place for dialysis. His fevers have improved. There is evidence of blood culture with coagulase- negative staph which is of concern given his protracted difficulties. 10/28/2018 Patient remains in intensive care unit without other acute changes except the deep tissue injury to the left heel has now started to drain. The deep tissue injury to the coccyx has opened is now stage IV. Wound care with therahoney is applied to the coccyx. Left heel protected with a DuoDERM. Continue with offloading of the weight. He is on a specialty bed already. Antibiotic therapy continues vancomycin. Blood cultures are negative. 10/29/2018 patient likely going to select specialty today. Objective - Vital Signs Vital signs: Vital Signs Temp 98.7 F 10/29/18 16:00 Pulse 98 10/29/18 19:40 Resp 11 L 10/29/18 19:40 BP 126/72 10/29/18 20:00 Pulse Ox 96 10/29/18 19:40 Intake & Output 10/29/18 10/29/18 10/30/18 06:59 18:59 06:59 Intake Total 820.596 953.49 80 Output Total 345 4010 5 Balance 475.596 -3056.51 75 Weight 105.8 kg 101.4 kg Intake: IV 120 120 10 Normal Saline carrier 120 120 10 Intake, IV Titration 220.596 248.49 Amount Heparin Sod,Pork in 0.45% 220.596 248.49 NaCl 25,000 unit In 0.45 % NaCl 1 250ml.bag @ 18 UNITS/KG/HR 20.682 mls/hr IV .Q12H6M [facility] Rx#: [id number] Tube Feeding 390 525 70 Other 90 60 Output: Urine 345 310 5 Hemodialysis 3700 Other: Voiding Method Indwelling Catheter Indwelling Catheter Indwelling Catheter ABP, PAP, CO, CI - Last Documented Arterial Blood Pressure 145/62 - Exam 53-year-old male who appears to be much older than his stated age is being [facility] HEENT: Anicteric, no lesions can been seen in the oral cavity endotracheal tube has been transitioned to the tracheostomy and its functioning well without bleeding IJ catheter for hemodialysis in the right neck has been removed. Neck: The neck is not stiff, no masses palpable Lungs: Symmetrical air entry is noted, basilar crackles heard Heart: Irregular without audible S1 and S2 soft S4 no stiff murmur click or rub is noted Abdomen: Obese, Positive bowel sounds soft and nontender without palpable masses or organomegaly. There was no guarding or rebound. Extremities: The upper extremity no evidence of some generalized edema and evidence of scattered areas of ecchymosis The lower extremities have the extensive bilateral lower extremity edema. Presents of the deep tissue injury of both heels. There is evidence of the eschars present on both buttocks and please refer the nursing photography for t he size of these multiple abnormalities. The left leg the patient is evidence of the 2 fasciotomy wounds from 10/13/2018. Also please see the nursing photography for the exact size of these ulcerations. If this point in time they are with evidence of some dryness of the base there is no yung ischemia being seen to the base of the fasciotomy with there is still some exposed muscle. There is some mildly degenerating fat and with manipulation some serous tissue edema fluid does come through the open areas. The left foot is well perfused. Neuro: Patient is awake generalized weakness tolerating trach shield while - Labs CBC & Chem 7: 10/29/18 04:58 10/29/18 04:58 Labs: Abnormal Lab Results - Last 24 Hours (Table) 10/28/18 10/29/18 10/29/18 Range/Units 23:35 04:58 04:58 RBC 2.40 L (4.30-5.90) m/uL Hgb 6.9 L* (13.0-17.5) gm/dL Hct 21.6 L (39.0-53.0) % RDW 15.9 H (11.5-15.5) % Lymphocytes # 0.8 L (1.0-4.8) k/uL APTT (22.0-30.0) sec Carbon Dioxide 21 L (22-30) mmol/L BUN 84 H (9-20) mg/dL Creatinine 5.01 H (0.66-1.25) mg/dL Glucose 103 H (74-99) mg/dL POC Glucose (mg/dL) 107 H (75-99) mg/dL 10/29/18 10/29/18 10/29/18 Range/Units 04:58 06:10 18:04 RBC (4.30-5.90) m/uL Hgb (13.0-17.5) gm/dL Hct (39.0-53.0) % RDW (11.5-15.5) % Lymphocytes # (1.0-4.8) k/uL APTT 53.3 H (22.0-30.0) sec Carbon Dioxide (22-30) mmol/L BUN (9-20) mg/dL Creatinine (0.66-1.25) mg/dL Glucose (74-99) mg/dL POC Glucose (mg/dL) 116 H 103 H (75-99) mg/dL Microbiology - Last 24 Hours (Table) 10/23/18 11:15 Blood Culture - Final Blood No Growth after 144 hours 10/23/18 11:20 Blood Culture - Final Blood No Growth after 144 hours 10/22/18 23:24 Blood Culture - Final Blood No Growth after 144 hours 10/22/18 22:50 Blood Culture - Final Blood No Growth after 144 hours Laboratory Results WBC 6.2 k/uL (3.8-10.6) 10/29/18 04:58 RBC 2.40 m/uL (4.30-5.90) L 10/29/18 04:58 Hgb 6.9 gm/dL (13.0-17.5) L* 10/29/18 04:58 Hct 21.6 % (39.0-53.0) L 10/29/18 04:58 MCV 90.0 fL (80.0-100.0) 10/29/18 04:58 MCH 28.8 pg (25.0-35.0) 10/29/18 04:58 MCHC 32.0 g/dL (31.0-37.0) 10/29/18 04:58 RDW 15.9 % (11.5-15.5) H 10/29/18 04:58 Plt Count 264 k/uL (150-450) 10/29/18 04:58 Neutrophils % 70 % 10/29/18 04:58 Neutrophils % (Manual) 57 % 10/22/18 21:10 Band Neutrophils % 29 % 10/22/18 21:10 Lymphocytes % 14 % 10/29/18 04:58 Lymphocytes % (Manual) 8 % 10/22/18 21:10 Monocytes % 7 % 10/29/18 04:58 Monocytes % (Manual) 2 % 10/22/18 21:10 Eosinophils % 5 % 10/29/18 04:58 Eosinophils % (Manual) 1 % 10/22/18 21:10 Basophils % 1 % 10/29/18 04:58 Metamyelocytes % 3 % 10/22/18 21:10 Myelocytes % 3 % 10/22/18 04:25 Blast Cells % Not Reportable 10/18/18 05:46 Neutrophils # 4.3 k/uL (1.3-7.7) 10/29/18 04:58 Neutrophils # (Manual) 8.90 k/uL (1.3-7.7) H 10/22/18 21:10 Lymphocytes # 0.8 k/uL (1.0-4.8) L 10/29/18 04:58 Lymphocytes # (Manual) 0.83 k/uL (1.0-4.8) L 10/22/18 21:10 Monocytes # 0.5 k/uL (0-1.0) 10/29/18 04:58 Monocytes # (Manual) 0.21 k/uL (0-1.0) 10/22/18 21:10 Eosinophils # 0.3 k/uL (0-0.7) 10/29/18 04:58 Eosinophils # (Manual) 0.10 k/uL (0-0.7) 10/22/18 21:10 Basophils # 0.0 k/uL (0-0.2) 10/29/18 04:58 Metamyelocytes # (Man) 0.31 k/uL (0) H 10/22/18 21:10 Myelocytes # (Manual) 0.39 k/uL (0) H 10/22/18 04:25 Blast Cells # (Man) 0.14 k/uL (0) H 10/18/18 05:46 Nucleated RBCs 0 /100 WBC (0-0) 10/22/18 21:10 Manual Slide Review Performed 10/22/18 21:10 Toxic Granulation Present 10/21/18 04:35 Large Platelets Present 10/22/18 04:25 Polychromasia Present 10/22/18 21:10 Hypochromasia Slight 10/29/18 04:58 Poikilocytosis (manual Present 10/22/18 04:25 Basophilic Stippling Present 10/22/18 21:10 Anisocytosis Slight 10/28/18 04:28 Anisocytosis (manual) Present 10/21/18 04:35 Target Cells Present 10/22/18 21:10 PT 9.6 sec (9.0-12.0) 10/13/18 03:15 INR 0.9 (<1.2) 10/13/18 03:15 APTT 53.3 sec (22.0-30.0) H 10/29/18 04:58 Fibrinogen Antigen 454 mg/dL (180-350) H 10/22/18 15:21 Lupus Anticoag aPTT 48 Sec(s) (<43) H 10/22/18 15:21 Lupus Anticoag PTT Mix 42 Sec(s) (<43) 10/22/18 15:21 Dil [place]ob Viper Venom 62 Sec(s) (<44) H 10/22/18 15:21 LA dRVVT Confirm Positive (Negative) H 10/22/18 15:21 dRVVT 50:50 47 Sec(s) (<44) H 10/22/18 15:21 Lupus Hexagonal Phase NA 10/22/18 15:21 Lupus Anticoag Interp SEE BELOW 10/22/18 15:21 Protein C Antigen 137 % (72-160) 10/22/18 15:21 Protein S Antigen 146 % (50 - 140) H 10/22/18 15:21 Antithrombin III Activ 52 % (79-109) L 10/22/18 15:21 Factor V Leiden Interp See Below 10/22/18 15:21 Sample Site R Radial 10/26/18 08:15 ABG pH 7.44 (7.35-7.45) 10/26/18 08:15 ABG pCO2 37 mmHg (35-45) 10/26/18 08:15 ABG pO2 134 mmHg (83-108) H 10/26/18 08:15 ABG HCO3 25 mmol/L (21-25) 10/26/18 08:15 ABG Total CO2 26 mmol/L (19-24) H 10/26/18 08:15 ABG O2 Saturation 98.8 % (94-97) H 10/26/18 08:15 ABG Base Excess 0.3 mmol/L 10/26/18 08:15 Donnell Test Yes 10/26/18 08:15 FiO2 45 % 10/26/18 08:15 Sodium 138 mmol/L (137-145) 10/29/18 04:58 Potassium 3.9 mmol/L (3.5-5.1) 10/29/18 04:58 Chloride 103 mmol/L (98-107) 10/29/18 04:58 Carbon Dioxide 21 mmol/L (22-30) L 10/29/18 04:58 Anion Gap 14 mmol/L 10/29/18 04:58 BUN 84 mg/dL (9-20) H 10/29/18 04:58 Creatinine 5.01 mg/dL (0.66-1.25) H 10/29/18 04:58 Est GFR (CKD-EPI)AfAm 14 (>60 ml/min/1.73 sqM) 10/29/18 04:58 Est GFR (CKD-EPI)NonAf 12 (>60 ml/min/1.73 sqM) 10/29/18 04:58 Glucose 103 mg/dL (74-99) H 10/29/18 04:58 POC Glucose (mg/dL) 103 mg/dL (75-99) H 10/29/18 18:04 POC Glu Administrative Underwriter Ingris Lee 10/29/18 18:04 Calcium 9.0 mg/dL (8.4-10.2) 10/29/18 04:58 Ionized Calcium Deandre 4.7 mg/dL (4.5-5.3) 10/25/18 05:07 Phosphorus 7.9 mg/dL (2.5-4.5) H 10/28/18 04:28 Magnesium 2.0 mg/dL (1.6-2.3) 10/28/18 04:28 Iron 23 ug/dL (65-175) L 10/21/18 04:35 TIBC 223 ug/dL (228-460) L 10/21/18 04:35 Iron Saturation 10.31 (15.00-50.00) L 10/21/18 04:35 Ferritin 2665.2 ng/mL (22.0-322.0) H 10/21/18 04:35 Total Bilirubin 1.8 mg/dL (0.2-1.3) H 10/18/18 05:46 AST 700 U/L (17-59) H 10/18/18 05:46 ALT 175 U/L (21-72) H 10/18/18 05:46 Alkaline Phosphatase 94 U/L (38-126) 10/18/18 05:46 Total Protein 4.6 g/dL (6.3-8.2) L 10/18/18 05:46 Albumin 2.3 g/dL (3.5-5.0) L 10/25/18 05:07 Procalcitonin 17.05 ng/mL (0.02-0.09) H 10/18/18 05:46 Urine Color Yellow 10/12/18 02:10 Urine Appearance Clear (Clear) 10/12/18 02:10 Urine pH 5.5 (5.0-8.0) 10/12/18 02:10 Ur Specific [place] 1.020 (1.001-1.035) 10/12/18 02:10 Urine Protein Trace (Negative) H 10/12/18 02:10 Urine Glucose (UA) Negative (Negative) 10/12/18 02:10 Urine Ketones Negative (Negative) 10/12/18 02:10 Urine Blood Moderate (Negative) H 10/12/18 02:10 Urine Nitrite Negative (Negative) 10/12/18 02:10 Urine Bilirubin Negative (Negative) 10/12/18 02:10 Urine Urobilinogen <2.0 mg/dL (<2.0) 10/12/18 02:10 Ur Leukocyte Esterase Negative (Negative) 10/12/18 02:10 Urine WBC 4 /hpf (0-5) 10/12/18 02:10 Ur Squamous Epith Cells <1 /hpf (0-4) 10/12/18 02:10 Hyaline Casts 75 /lpf (0-2) H 10/12/18 02:10 Granular Casts 1 /lpf (0) 10/12/18 02:10 Random Vancomycin 20.9 ug/mL 10/29/18 04:58 Anti-Cardiolipin IgG Ab <1.6 U/mL 10/22/18 15:21 Cardiolipin IgG Interp NEGATIVE (NEGATIVE) 10/22/18 15:21 Anti-Cardiolipin IgA Ab 2.9 U/mL 10/22/18 15:21 Cardiolipin IgA Interp NEGATIVE (NEGATIVE) 10/22/18 15:21 Anti-Cardiolipin IgM Ab 1.2 U/mL 10/22/18 15:21 Cardiolipin IgM Interp NEGATIVE (NEGATIVE) 10/22/18 15:21 Hep Bs Antigen Non-Reactive (Non-Reactive) 10/15/18 11:45 Hep Bs Antibody Non-Reactive (Non-Reactive) 10/15/18 11:45 Hep Bs Antibody, Quant 3.5 mIU/mL 10/15/18 11:45 Hep B Core Total Ab Non-Reactive (Non-Reactive) 10/15/18 11:45 Miscellaneous Test BETA2 GLYCOPROTEIN 10/22/18 15:21 Misc Test Result See Comment 10/22/18 15:21 Blood Type A Positive 10/25/18 06:43 Blood Type Confirm A Positive 10/07/18 10:15 Blood Type Recheck No 10/25/18 06:43 Antibody Screen NEGATIVE 10/25/18 06:43 Crossmatch See Detail 10/25/18 06:43 Spec Expiration Date 10/28/2018 - 234210/25/18 06:43 Microbiology 10/23/18 11:15 Blood Blood Culture - Final No Growth after 144 hours 10/23/18 11:20 Blood Blood Culture - Final No Growth after 144 hours 10/22/18 23:24 Blood Blood Culture - Final No Growth after 144 hours 10/22/18 22:50 Blood Blood Culture - Final No Growth after 144 hours 10/21/18 23:49 Blood Blood Culture - Final No Growth after 144 hours 10/21/18 15:31 Leg - Left Anaerobic Culture - Final 10/23/18 15:12 Catheter Tip Catheter Tip Culture - Final 10/21/18 15:31 Leg - Left Anaerobic Culture - Final Anaerobic Gm Positive Bacill 10/21/18 23:37 Blood Blood Culture - Final 10/22/18 20:40 Blood Blood Culture Gram Stain - Final 10/22/18 20:40 Blood Blood Culture - Final Coagulase Negative Staph 10/21/18 15:31 Leg - Left Gram Stain - Final 10/21/18 15:31 Leg - Left Wound Culture - Final 10/21/18 15:31 Leg - Left Gram Stain - Final 10/21/18 15:31 Leg - Left Wound Culture - Final 10/16/18 10:40 Blood Blood Culture - Final No Growth after 144 hours 10/16/18 10:10 Blood Blood Culture - Final No Growth after 144 hours 10/16/18 15:20 Sputum Gram Stain - Final 10/16/18 15:20 Sputum Sputum Culture - Final 10/12/18 09:30 Sputum Gram Stain - Final 10/12/18 09:30 Sputum Sputum Culture - Final Moraxella(branhamella) catarra Haemophilus influenzae Assessment and Plan (1) Atherosclerosis of [place] artery of both lower extremities with intermittent claudication Current Visit: Yes Status: Acute Code(s): I70.213 - ATHSCL [place] ARTERIES OF EXTRM W INTRMT [place], BI LEGS SNOMED Code(s): 862400679951147 (2) Respiratory failure Current Visit: Yes Status: Acute Code(s): J96.90 - RESPIRATORY FAILURE, UNSP, UNSP W HYPOXIA OR HYPERCAPNIA SNOMED Code(s): 121832683 (3) Pressure ulcer of buttock Narrative/Plan: 53-year-old male with a long-standing history of tobacco use with underlying lung disease as well as severe peripheral vascular disease with ongoing symptomatology worsening over the last greater than 1 year. At the time presentation occurs the patient is miserable with his claudication from his severe peripheral vascular disease. He was evaluated and because of the disease state was taken the operating room and a or aorto bifemoral graft was placed. The patient has had great difficulties that included occlusion of the graft in further surgeries that included the thrombectomy of the aorta graft the right f emoral component in the left femoral component. By the time the left femoral component occluded there is evidence of severe swelling to the calf and fasciotomies were performed for limb salvage. The patient remains with respiratory failure intubated sedated and mechanically ventilated but not in vasopressor therapy. He developed acute renal failure as noted dialysis dependent. The patient has developed some fever and follow-up cultures have been requested. To date only positive cultures or Moraxella and Haemophilus and de-escalation to Rocephin will occur. However given the multiple ulcerations vancomycin is added with pharmacy dosing given his hemodialysis dependence at this time. He has severe leukocytosis it is multifactorial including the multiple underlying pressure ulceration. The patient does have cardiac dysrhythmia and is on amiodarone. The patient is in an ICU bed for appropriate offloading heels are being also purposely offloaded. Receiving nutrition via TPN. 10/22/2018 patient is now a tracheostomy applied and dialysis catheter for ongoing hemodialysis. He magnetically stable and comfortable. Antibiotic therapy with Rocephin and vancomycin currently be utilized and multiple cultures obtained and are being monitored. Oncology consult today 10/23/2018 the patient is ventilating well via the tracheostomy. Tolerating current antibiotic therapy with Rocephin and vancomycin at this time. There is the positive blood culture with coagulase-negative staph one prior cultures also showing gram-positive cocci but is yet to be identified. At this time is to fo llow blood cultures remained negative will have no significant concerns. However if we have further positive blood cultures will then be concern regarding the newly placed hemodialysis catheter. As of now he is training to improvement and hopefully will have some improvement of his mental status. With stimulation he does appear to gaze to the observer and attempts to smile. 10/29/2018 patient is stable to improved and is likely to be transfered to the ventilator facility. Complete 7 days vancomycin. Current Visit: Yes Status: Acute Code(s): L89.309 - PRESSURE ULCER OF UNSPECIFIED BUTTOCK, UNSPECIFIED STAGE SNOMED Code(s): 153510720 (4) Pressure injury of deep tissue of left heel Current Visit: Yes Status: Acute Code(s): L89.629 - PRESSURE ULCER OF LEFT HEEL, UNSPECIFIED STAGE SNOMED Code(s): 365000793 (5) Pressure injury of deep tissue of right heel Current Visit: Yes Status: Acute Code(s): L89.619 - PRESSURE ULCER OF RIGHT HEEL, UNSPECIFIED STAGE SNOMED Code(s): 069844474
== END 2018-10-30 06:44 | DRG 3 ==
LOC: 2ORMAIN 09:41 → 2SICU 18:26 → 3SCARD 10-11 01:09 → 2SICU 10-11 19:02
PROVIDERS: ADMIT Surgery; ATTEND Surgery
PROC: 04C00ZZ Extirpation of Matter from Abdominal Aorta, Open Approach (ICD-10-PCS; 2018-10-07)
PROC: 021W0JV Bypass Thoracic Aorta, Descending to Lower Extremity Artery with Synthetic Substitute, Open Approach (ICD-10-PCS; 2018-10-07)
PROC: 04CK0ZZ Extirpation of Matter from Right Femoral Artery, Open Approach (ICD-10-PCS; 2018-10-07)
PROC: 04CL0ZZ Extirpation of Matter from Left Femoral Artery, Open Approach (ICD-10-PCS; 2018-10-07)
PROC: 047L0ZZ Dilation of Left Femoral Artery, Open Approach (ICD-10-PCS; 2018-10-07)
PROC: 30243N1 Transfusion of Nonautologous Red Blood Cells into Central Vein, Percutaneous Approach (ICD-10-PCS; 2018-10-11)
PROC: 0BH17EZ Insertion of Endotracheal Airway into Trachea, Via Natural or Artificial Opening (ICD-10-PCS; 2018-10-11)
PROC: 5A1955Z Respiratory Ventilation, Greater than 96 Consecutive Hours (ICD-10-PCS; principal; 2018-10-11 13:00)
PROC: 04CK0ZZ Extirpation of Matter from Right Femoral Artery, Open Approach (ICD-10-PCS; 2018-10-12)
PROC: 04CM0ZZ Extirpation of Matter from Right Popliteal Artery, Open Approach (ICD-10-PCS; 2018-10-12)
PROC: 04WY0JZ Revision of Synthetic Substitute in Lower Artery, Open Approach (ICD-10-PCS; 2018-10-12)
PROC: 04CD0ZZ Extirpation of Matter from Left Common Iliac Artery, Open Approach (ICD-10-PCS; 2018-10-12)
PROC: 04CL0ZZ Extirpation of Matter from Left Femoral Artery, Open Approach (ICD-10-PCS; 2018-10-12)
PROC: 04CN0ZZ Extirpation of Matter from Left Popliteal Artery, Open Approach (ICD-10-PCS; 2018-10-12)
PROC: 05HN33Z Insertion of Infusion Device into Left Internal Jugular Vein, Percutaneous Approach (ICD-10-PCS; 2018-10-12)
PROC: 03HY32Z Insertion of Monitoring Device into Upper Artery, Percutaneous Approach (ICD-10-PCS; 2018-10-12)
PROC: 4A133B1 Monitoring of Arterial Pressure, Peripheral, Percutaneous Approach (ICD-10-PCS; 2018-10-12)
PROC: 4A133J1 Monitoring of Arterial Pulse, Peripheral, Percutaneous Approach (ICD-10-PCS; 2018-10-12)
PROC: 0KNT0ZZ Release Left Lower Leg Muscle, Open Approach (ICD-10-PCS; 2018-10-13)
PROC: 0KNT0ZZ Release Left Lower Leg Muscle, Open Approach (ICD-10-PCS; 2018-10-13)
PROC: 02HV33Z Insertion of Infusion Device into Superior Vena Cava, Percutaneous Approach (ICD-10-PCS; 2018-10-15)
PROC: 5A1D70Z Performance of Urinary Filtration, Intermittent, Less than 6 Hours Per Day (ICD-10-PCS; 2018-10-15)
PROC: 3E0336Z Introduction of Nutritional Substance into Peripheral Vein, Percutaneous Approach (ICD-10-PCS; 2018-10-17)
PROC: 0B113F4 Bypass Trachea to Cutaneous with Tracheostomy Device, Percutaneous Approach (ICD-10-PCS; 2018-10-22)
PROC: 0JH63XZ Insertion of Tunneled Vascular Access Device into Chest Subcutaneous Tissue and Fascia, Percutaneous Approach (ICD-10-PCS; 2018-10-23)
PROC: 0W363ZZ Control Bleeding in Neck, Percutaneous Approach (ICD-10-PCS; 2018-10-24)
PROC: 0DH63UZ Insertion of Feeding Device into Stomach, Percutaneous Approach (ICD-10-PCS; 2018-10-24)
PROC: 02H633Z Insertion of Infusion Device into Right Atrium, Percutaneous Approach (ICD-10-PCS; 2018-10-28)
DX: I70.213 Atherosclerosis of native arteries of extremities with intermittent claudication, bilateral legs (principal); T80.211A Bloodstream infection due to central venous catheter, initial encounter; A41.1 Sepsis due to other specified staphylococcus; R65.21 Severe sepsis with septic shock; I71.02 Dissection of abdominal aorta; J69.0 Pneumonitis due to inhalation of food and vomit; J96.01 Acute respiratory failure with hypoxia; N17.0 Acute kidney failure with tubular necrosis; N18.6 End stage renal disease; J15.6 Pneumonia due to other Gram-negative bacteria; J14 Pneumonia due to Hemophilus influenzae; G62.81 Critical illness polyneuropathy; D68.9 Coagulation defect, unspecified; E46 Unspecified protein-calorie malnutrition; E87.1 Hypo-osmolality and hyponatremia; E87.2 Acidosis; I12.0 Hypertensive chronic kidney disease with stage 5 chronic kidney disease or end stage renal disease; I74.09 Other arterial embolism and thrombosis of abdominal aorta; I74.3 Embolism and thrombosis of arteries of the lower extremities; J95.01 Hemorrhage from tracheostomy stoma; J98.11 Atelectasis; K56.7 Ileus, unspecified; N28.0 Ischemia and infarction of kidney; T79.A22A Traumatic compartment syndrome of left lower extremity, initial encounter; Z68.41 Body mass index [BMI] 40.0-44.9, adult; K94.21 Gastrostomy hemorrhage; L89.329 Pressure ulcer of left buttock, unspecified stage; L89.319 Pressure ulcer of right buttock, unspecified stage; I95.9 Hypotension, unspecified; I48.0 Paroxysmal atrial fibrillation; E66.01 Morbid (severe) obesity due to excess calories; E83.39 Other disorders of phosphorus metabolism; E87.5 Hyperkalemia; E87.70 Fluid overload, unspecified; L89.620 Pressure ulcer of left heel, unstageable; L89.610 Pressure ulcer of right heel, unstageable; D63.8 Anemia in other chronic diseases classified elsewhere; E03.9 Hypothyroidism, unspecified; E78.5 Hyperlipidemia, unspecified; K21.9 Gastro-esophageal reflux disease without esophagitis; R58 Hemorrhage, not elsewhere classified; F17.211 Nicotine dependence, cigarettes, in remission; G89.29 Other chronic pain; I25.10 Atherosclerotic heart disease of native coronary artery without angina pectoris; I99.8 Other disorder of circulatory system; J44.9 Chronic obstructive pulmonary disease, unspecified; M19.90 Unspecified osteoarthritis, unspecified site; N14.1 Nephropathy induced by other drugs, medicaments and biological substances; T50.8X5A Adverse effect of diagnostic agents, initial encounter; M54.9 Dorsalgia, unspecified; R73.9 Hyperglycemia, unspecified; Z79.82 Long term (current) use of aspirin; Z79.899 Other long term (current) drug therapy; Z88.0 Allergy status to penicillin
CPT/HCPCS: 36410; 36573; 36600; 43246; 71045; 71275; 75635; 76937; 77001; 80048; 80053; 80202; 81001; 81241; 82040; 82330; 82728; 82805; 83540; 83550; 83735; 84100; 84132; 84145; 85025; 85027; 85300; 85302; 85305; 85385; 85610; 85613; 85730; 85732; 86146; 86147; 86704; 86706; 86850; 86891; 86900; 86901; 86920; 87040; 87070; 87075; 87205; 87340; 88304; 88311; 90935; 93306; 94002; 94003; 94640

== ENCOUNTER → 2019-01-21 | Outpatient (CLI) | payer OTHER ==
--- NOTE | 2019-01-21 17:02 | XR ---
Left foot HISTORY: Pressure ulcer left heel 3 views of the left foot Bone mineralization, joint spaces and alignment are maintained. There is no fracture or dislocation. There is a plantar calcaneal spur. Enthesophyte is present at the insertion of the Achilles tendon. S oft tissue swelling noted within the foot. IMPRESSION: Soft tissue swelling. Plantar calcaneal spur.
== END | disposition home or self-care (01) ==
LOC: RADXRMAIN 15:16
PROVIDERS: ATTEND Nurse Practitioner Family
DX: M79.89 Other specified soft tissue disorders (principal); M77.32 Calcaneal spur, left foot

== ENCOUNTER 2019-01-25 17:32 | Emergency (ER) | payer OTHER ==
--- NOTE | 2019-01-25 18:01 | ED ---
General Adult HPI - General Chief complaint: Altered Mental Status Stated complaint: Altered mental Status Time Seen by Provider: 01/25/19 17:34 Source: patient, EMS Mode of arrival: EMS Limitations: altered mental status - History of Present Illness Initial comments: Dictation was produced using [employer] dictation software. please excuse any grammatical, word or spelling errors. Chief Complaint: 53-year-old male presents with altered mental status History of Present Illness: Patient is a 53-year-old male who presents today via EMS. EMS was called by home health care nurse. Home health care nurse visits patient for management of patient's wound VAC. Patient was allegedly found on the chair with altered mental state. According to EMS patient has been slightly forgetful. They report that he is a and O 2 out of 4. He isn't able to name the year or identify where he is. EMS reports that patient was also found on the ground by neighbors yesterday. It is unknown how long patient has been on the ground. Patient currently has a coccyx wound VAC. Patient was admitted in October for multiple medical issues. He should summary was reviewed showing aortoiliac occlusive disease. He underwent multiple procedures including la parotomy, aortofemoral bypass left calf fasciotomy, direct bili of the left leg, PEG tube placement and tracheostomy. She was in the intensive care unit for some time while admitted. Patient states he feels fine at the moment. Patient does not a reliable historian. EMS reports that home health care nurse found that he pulled his wound VAC from his right hip out she replaced it and called EMS. Patient's wound VAC isn't working at the moment because it has been charged according to EMS. The ROS documented in this emergency department record has been reviewed and confirmed by me. Those systems with pertinent positive or negative responses have been documented in the HPI. All other systems are other negative and/or noncontributory. PHYSICAL EXAM: General Impression: Alert and oriented x2/4, not in acute distress, pleasant demeanor HEENT: Normocephalic atraumatic, extra-ocular movements intact, pupils equal and reactive to light bilaterally, mucous membranes moist. Cardiovascular: Heart regular rate and rhythm, S1&S2 audible, no murmurs, rubs or gallops Chest: Lungs clear to auscultation bilaterally Abdomen: Bowel sounds present, abdomen soft, mild diffuse abdominal tenderness, no rigidity, no tympany to percussion Musculoskeletal: Pulses present and equal in all extremities, no peripheral edema Motor: no focal deficits noted Neurological: CN II-XII grossly intact, no focal motor or sensory deficits noted, able to identify objects, no dysarthria Skin: Intact with no visualized rashes, no sacral decubitus ulcer, wound VAC in place at the right hip Psych: Normal affect and mood ED course: 53-year-old male presents with chief complaint of altered mental status. EMS reports that patient is in O 2 out of 4. Physical examination confirms that. Patient does not know what year it is. He is able to do as name and birthdate and place. Vital signs upon arrival are within acceptable limits. Patient is otherwise well-appearing. He has no focal neurologic deficits. Patient allegedly lives at home by himself. He cares for himself. He does have family member to come and help him whenever he needs assistance. He is also found on the ground for unknown amount of time by neighbors.Some the labs have resulted. Patient is leukocytosis of 16.2, coag panel unremarkable. Metabolic panel shows sodium 134, carbon dioxide of 20, anion gap of 19, BUN 45, creatini ne of 3.18 which is elevated compared to last month with the level I.7, lactic acidosis of 2.2, elevated transaminitis, creatinine kinase of 59,000, troponin 0.023. Clinical presentation suggestive of nonexertional rhabdomyolysis. Discussed patient case with Dr. Sanchez of nephrology recommends no indication for bicarbonate administration at this time. He does recommend giving another liter normal saline bolus and started patient on 250 mL of normal saline per hour imaging studies were obtained. Computed tomography scan of the head, chest x- ray and pelvis x-rays unremarkable. This patient case with hospitalist Dr. Chowdhury who did not fill comfortable having patient admitted to our hospital over the weekend given that we do not have neurology. Patient's clinical presentation is more than likely metabolic encephalopathy however we will transferred to [facility] for neurology services. Patient reevaluated at bedside and found to be in stable medical condition. Point there is no clear reason for antibiotic administration given he does not have any pyrexia or localizing symptoms. There are however pending blood cultures and urine cultures. Discussed patient case with Dr. [facility] was willing to accept the transfer. EKG interpretation: Ventricular rate 92, normal sinus rhythm, W[place] interval 156, QS 96, QTC 494. No WY prolongation, no QTC prolongation, no ST or T-wave changes noted. EKG compared to 10/01/2018 showing no changes. Overall, this EKG is unremarkable - Related Data Home Medications Medication Instructions Recorded Confirmed Aspirin [Adult Low Dose Aspirin EC] 81 mg PO DAILY 09/03/18 01/25/19 Acetaminophen Tab [Tylenol Tab] 650 mg PO Q4H PRN 01/25/19 01/25/19 Amiodarone [Cordarone] 100 mg PO BID 01/25/19 01/25/19 Calcium Acetate [PhosLo] 667 mg PO AC-BID 01/25/19 01/25/19 Collagenase [Santyl] 1 applic TOPICAL DAILY 01/25/19 01/25/19 Diltiazem HCl [Diltiazem ER] 180 mg PO DAILY 01/25/19 01/25/19 Docusate [Colace] 100 mg PO DAILY 01/25/19 01/25/19 Furosemide [Lasix] 80 mg PO BID 01/25/19 01/25/19 Gemfibrozil [Lopid] 600 mg PO AC-BID 01/25/19 01/25/19 Lansoprazole [Prevacid] 15 mg PO BID 01/25/19 01/25/19 Lisinopril [Zestril] 20 mg PO DAILY 01/25/19 01/25/19 Potassium Citrate [Potassium 10 meq PO DAILY 01/25/19 01/25/19 Citrate ER] amLODIPine [Norvasc] 10 mg PO DAILY 01/25/19 01/25/19 traMADol HCL [Ultram] 50 mg PO Q6H PRN 01/25/19 01/25/19 Previous Rx's Medication Instructions Recorded Ipratropium-Albuterol Nebulize 3 ml INHALATION RT-QID #120 10/29/18 [Duoneb 0.5 mg-3 mg/3 ml Soln] ampul.neb Allergies Allergy/AdvReac Type Severity Reaction Status Date / Time Penicillins Allergy Swelling Verified 01/25/19 18:55 Review of Systems ROS Statement: Those systems with pertinent positive or pertinent negative responses have been documented in the HPI. ROS Other: All systems not noted in ROS Statement are negative. Past Medical History Past Medical History: Hypertension, Osteoarthritis (OA), Thyroid Disorder, Vascular Disorder Additional Past Medical History / Comment(s): "no blood flow to legs", arthritis in lower back, edema of lower legs, occ swelling in fingers History of Any Multi-Drug Resistant Organisms: None Reported Past Surgical History: Unable to Obtain Past Anesthesia/Blood Transfusion Reactions: No Reported Reaction Past Psychological History: Unable to Obtain Smoking Status: Current some day smoker Past Alcohol Use History: Unable to Obtain Past Drug Use History: Unable to Obtain - Past Family History Sister(s) Family Medical History: Cancer General Exam Limitations: altered mental status Course Vital Signs 01/25/19 17:33 Temperature 98.6 F Pulse Rate 93 Respiratory 18 Rate Blood Pressure 127/93 O2 Sat by Pulse 97 Oximetry Medical Decision Making - Lab Data Result diagrams: 01/25/19 18:00 01/25/19 18:00 Lab Results 01/25/19 01/25/19 01/25/19 Range/Units 18:00 18:00 18:00 WBC 16.2 H (3.8-10.6) k/uL RBC 4.61 (4.30-5.90) m/uL Hgb 13.1 D (13.0-17.5) gm/dL Hct 38.7 L (39.0-53.0) % MCV 84.0 (80.0-100.0) fL MCH 28.4 (25.0-35.0) pg MCHC 33.8 (31.0-37.0) g/dL RDW 19.1 H (11.5-15.5) % Plt Count 415 (150-450) k/uL Neutrophils % 88 % Lymphocytes % 6 % Monocytes % 5 % Eosinophils % 1 % Basophils % 0 % Neutrophils # 14.2 H (1.3-7.7) k/uL Lymphocytes # 0.9 L (1.0-4.8) k/uL Monocytes # 0.8 (0-1.0) k/uL Eosinophils # 0.1 (0-0.7) k/uL Basophils # 0.1 (0-0.2) k/uL Anisocytosis Slight PT 9.5 (9.0-12.0) sec INR 0.9 (<1.2) APTT 26.3 (22.0-30.0) sec Sodium 134 L (137-145) mmol/L Potassium 3.8 (3.5-5.1) mmol/L Chloride 95 L (98-107) mmol/L Carbon Dioxide 20 L (22-30) mmol/L Anion Gap 19 mmol/L BUN 45 H (9-20) mg/dL Creatinine 3.18 H (0.66-1.25) mg/dL Est GFR (CKD-EPI)AfAm 24 (>60 ml/min/1.73 sqM) Est GFR (CKD-EPI)NonAf 21 (>60 ml/min/1.73 sqM) Glucose 105 H (74-99) mg/dL Plasma Lactic Acid Bran (0.7-2.0) mmol/L Calcium 9.6 (8.4-10.2) mg/dL Magnesium 2.5 H (1.6-2.3) mg/dL Total Bilirubin 0.5 (0.2-1.3) mg/dL AST 702 H (17-59) U/L ALT 108 H (21-72) U/L Alkaline Phosphatase 143 H (38-126) U/L Creatine Kinase 18828 H* (55-170) U/L Troponin I (0.000-0.034) ng/mL Total Protein 7.8 (6.3-8.2) g/dL Albumin 4.3 (3.5-5.0) g/dL 01/25/19 01/25/19 Range/Units 18:00 18:00 WBC (3.8-10.6) k/uL RBC (4.30-5.90) m/uL Hgb (13.0-17.5) gm/dL Hct (39.0-53.0) % MCV (80.0-100.0) fL MCH (25.0-35.0) pg MCHC (31.0-37.0) g/dL RDW (11.5-15.5) % Plt Count (150-450) k/uL Neutrophils % % Lymphocytes % % Monocytes % % Eosinophils % % Basophils % % Neutrophils # (1.3-7.7) k/uL Lymphocytes # (1.0-4.8) k/uL Monocytes # (0-1.0) k/uL Eosinophils # (0-0.7) k/uL Basophils # (0-0.2) k/uL Anisocytosis PT (9.0-12.0) sec INR (<1.2) APTT (22.0-30.0) sec Sodium (137-145) mmol/L Potassium (3.5-5.1) mmol/L Chloride (98-107) mmol/L Carbon Dioxide (22-30) mmol/L Anion Gap mmol/L BUN (9-20) mg/dL Creatinine (0.66-1.25) mg/dL Est GFR (CKD-EPI)AfAm (>60 ml/min/1.73 sqM) Est GFR (CKD-EPI)NonAf (>60 ml/min/1.73 sqM) Glucose (74-99) mg/dL Plasma Lactic Acid Bran 2.2 H* (0.7-2.0) mmol/L Calcium (8.4-10.2) mg/dL Magnesium (1.6-2.3) mg/dL Total Bilirubin (0.2-1.3) mg/dL AST (17-59) U/L ALT (21-72) U/L Alkaline Phosphatase (38-126) U/L Creatine Kinase (55-170) U/L Troponin I 0.023 (0.000-0.034) ng/mL Total Protein (6.3-8.2) g/dL Albumin (3.5-5.0) g/dL Disposition Clinical Impression: Altered mental status, Rhabdomyolysis Disposition: OTHER INSTITUTION NOT DEFINED Condition: Fair Referrals: Lexi Carroll MD [Primary Care Provider] - 1-2 days Time of Disposition: 20:41 - Out of Hospital Transfer - Req. Specs Out of Hospital Transfer - Requested Specifics: Other [facility] ([facility])
[2019-01-25 18:20] LABS: INR 0.9 (<1.2); Partial Thromboplastin Time 26.3 sec (22.0-30.0); Prothrombin Time 9.5 sec (9.0-12.0)
[2019-01-25 18:22] LABS: Albumin 4.3 g/dL (3.5-5.0); Calcium 9.6 mg/dL (8.4-10.2); Magnesium 2.5 mg/dL (1.6-2.3); Potassium 3.8 mmol/L (3.5-5.1); Total Bilirubin 0.5 mg/dL (0.2-1.3); Total Protein 7.8 g/dL (6.3-8.2)
[2019-01-25 18:33] LABS: Anisocytosis Slight; Basophils # (A) 0.1 k/uL (0-0.2); Basophils % (A) 0 %; Eosinophils # (A) 0.1 k/uL (0-0.7); Eosinophils % (A) 1 %; HCT 38.7 % (39.0-53.0); Lymphocytes # (A) 0.9 k/uL (1.0-4.8); Lymphocytes % (A) 6 %; MCH 28.4 pg (25.0-35.0); MCHC 33.8 g/dL (31.0-37.0); Monocytes # (A) 0.8 k/uL (0-1.0); Monocytes % (A) 5 %; Neutrophils # (A) 14.2 k/uL (1.3-7.7); Neutrophils % (A) 88 %; Platelet Count 415 k/uL (150-450); RBC 4.61 m/uL (4.30-5.90); RDW 19.1 % (11.5-15.5); WBC 16.2 k/uL (3.8-10.6)
--- NOTE | 2019-01-25 18:33 | CT ---
EXAMINATION TYPE: CT brain balta sutton con DATE OF EXAM: 01/25/2019 COMPARISON: None HISTORY: AMS. Fall CT DLP: 1638.4 mGycm Automated exposure control for dose reduction was used. TECHNIQUE: CT scan of the head and cervical spine are performed without contrast. FINDINGS: Ventricles have normal size. There is no mass effect nor midline shift. There is no sign of intracranial hemorrhage. The calvarium is intact. Skull base is intact. There is fluid level in th e left maxillary sinus. Cervical vertebra have normal spacing and alignment. There is mild anterior spurring in the mid cervi sathish spine. Facet joints are intact. There is no evidence of cervical spine fracture. IMPRESSION: Negative CT scan of the brain. Negative CT scan cervical spine. left maxillary sinusitis.
--- NOTE | 2019-01-25 18:34 | XR ---
EXAMINATION TYPE: XR pelvis AP view DATE OF EXAM: 01/25/2019 COMPARISON: NONE HISTORY: Pain TECHNIQUE: Single view FINDINGS: Pelvic ring is intact. Proximal femurs and hip joints appear intact. There is no sign of hi p dysplasia. There is minimal acetabular spurring. IMPRESSION: No acute abnormality of the pelvis.
--- NOTE | 2019-01-25 18:35 | XR ---
EXAMINATION TYPE: XR chest 2V DATE OF EXAM: 01/25/2019 COMPARISON: 10/28/2018 HISTORY: Altered mental status TECHNIQUE: Frontal and lateral views of the chest are obtained. FINDINGS: Heart and mediastinum are normal. Lungs are clear. Diaphragm is normal. Bony thorax appear s intact. There is no pleural effusion. There is spurring in the thoracic spine. IMPRESSION: No active cardiopulmonary disease. No adverse change compared to old exam.
[2019-01-25 18:36] LABS: HGB 13.1 gm/dL (13.0-17.5)
[2019-01-25] MEDS ORDERED: SODIUM CHLORIDE 0.9% 1,000 ML IV STA ×3 (18:37→19:20)
[2019-01-25] MEDS ORDERED: LIDOCAINE URO-JET JELLY 2% 5 ML KIT URETHRAL ONE (20:00)
[2019-01-25 20:43] LABS: Amorphous Sediment,Urine Occasional /hpf; Appearance,Urine Cloudy (Clear); Bacteria,Urine Occasional /hpf; Bilirubin,Urine Negative (Negative); Blood,Urine Large (Negative); Color,Urine Light Red; Glucose,Urine (UA) Negative (Negative); Hyaline Casts,Urine 1 /lpf (0-2); Ketones,Urine Negative (Negative); Leukocyte Esterase,Urine Small (Negative); Mucus,Urine Rare /hpf; Nitrite,Urine Positive (Negative); Protein,Urine 2+ (Negative); Specific Gravity,Urine 1.009 (1.001-1.035); Squamous Epithelial Cell,Urine 2 /hpf (0-4); Urobilinogen,Urine <2.0 mg/dL (<2.0)
[2019-01-25 20:53] LABS: Amphetamine Screen,Urine Not Detected (NotDetected); Barbiturate Screen,Urine Not Detected (NotDetected); Benzodiazepines Screen,Urine Not Detected (NotDetected); Cocaine Screen,Urine Not Detected (NotDetected); Methadone Screen, Urine Not Detected (NotDetected); Opiate Screen,Urine Not Detected (NotDetected); Oxycodone Screen, Urine Not Detected (NotDetected); Phencyclidine Screen,Urine Not Detected (NotDetected); Tricyclic Antidepressant,Urine Not Detected (NotDetected); Urn Cannabinoid Scrn Not Detected (NotDetected)
[2019-01-25 21:53] VITALS: RESP 19
[2019-01-25 21:54] VITALS: TEMP 98.8
[2019-01-25 21:57] VITALS: BP 147/78; PULSE 92
== END 2019-01-25 21:25 | disposition other institution (70) ==
LOC: EC 17:32
DX: M62.82 Rhabdomyolysis (principal); R41.82 Altered mental status, unspecified; I10 Essential (primary) hypertension; D72.829 Elevated white blood cell count, unspecified; F17.200 Nicotine dependence, unspecified, uncomplicated; Z79.82 Long term (current) use of aspirin; Z79.899 Other long term (current) drug therapy; Z88.0 Allergy status to penicillin
CPT/HCPCS: 36415; 51798; 70450; 71046; 72125; 72170; 80053; 80306; 81001; 82550; 83605; 83735; 84100; 84484; 85025; 85610; 85730; 87040; 87077; 87086; 87186; 93005; 96360; 96361; 99285

== ENCOUNTER 2019-02-14 16:02 | Inpatient (IN) | payer OTHER ==
[2019-02-14 16:48] LABS: Anisocytosis Slight; Basophils # (A) 0.2 k/uL (0-0.2); Basophils % (A) 3 %; Eosinophils # (A) 0.7 k/uL (0-0.7); Eosinophils % (A) 7 %; HCT 35.8 % (39.0-53.0); HGB 11.6 gm/dL (13.0-17.5); Lymphocytes # (A) 0.9 k/uL (1.0-4.8); Lymphocytes % (A) 11 %; MCH 27.8 pg (25.0-35.0); MCHC 32.5 g/dL (31.0-37.0); MCV 85.6 fL (80.0-100.0); Mean Platelet Volume 6.7; Monocytes # (A) 0.8 k/uL (0-1.0); Monocytes % (A) 9 %; Neutrophils # (A) 5.9 k/uL (1.3-7.7); Neutrophils % (A) 67 %; Platelet Count 487 k/uL (150-450); RBC 4.18 m/uL (4.30-5.90); RDW 16.6 % (11.5-15.5); WBC 8.9 k/uL (3.8-10.6)
[2019-02-14 16:59] LABS: Albumin 4.1 g/dL (3.5-5.0); Calcium 10.3 mg/dL (8.4-10.2); Total Bilirubin 0.5 mg/dL (0.2-1.3); Total Protein 7.7 g/dL (6.3-8.2)
[2019-02-14 17:03] LABS: Amorphous Sediment,Urine Rare /hpf; Appearance,Urine Cloudy (Clear); Bacteria,Urine Rare /hpf; Bilirubin,Urine Negative (Negative); Blood,Urine Small (Negative); Calcium Oxalate Crystals,Urine Rare /hpf; Color,Urine Yellow; Glucose,Urine (UA) Negative (Negative); Hyaline Casts,Urine 27 /lpf (0-2); Ketones,Urine Negative (Negative); Leukocyte Esterase,Urine Large (Negative); Mucus,Urine Occasional /hpf; Nitrite,Urine Negative (Negative); Protein,Urine 1+ (Negative); RBC,Urine 6 /hpf (0-5); Specific Gravity,Urine 1.007 (1.001-1.035); Urobilinogen,Urine <2.0 mg/dL (<2.0); WBC,Urine 86 /hpf (0-5)
[2019-02-14 17:04] LABS: Potassium 4.3 mmol/L (3.5-5.1)
[2019-02-14] MEDS ORDERED: LEVOFLOXACIN 750MG-D5W PMX 750 MG in DEXTROSE/WATER 1 150ML.BAG IVPB STA (17:12)
[2019-02-14] MEDS ORDERED: SODIUM CHLORIDE 0.9% 1,000 ML IV STA (17:14)
[2019-02-14] MEDS ORDERED: SODIUM CHLORIDE 0.9% 500 ML 500 ML IV STA (17:14)
--- NOTE | 2019-02-14 19:10 | ED ---
General Adult HPI - General Chief complaint: Recheck/Abnormal Lab/Rx Stated complaint: Abnormal labs Time Seen by Provider: 02/14/19 16:05 Source: EMS Mode of arrival: EMS Limitations: physical limitation - History of Present Illness Initial comments: The patient is a 53-year-old male with past medical history of aortobifem bypass who presents to the emergency room with reported abnormal labs. The patient is sent from [facility]. He had a surgery in January. He has an extensive course afterwards. He ended up with b/l thrombectomies and fasciotomy of the left lower leg. 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 Patient is currently residing at [facility] for rehab. He had laboratory studies obtained earlier this afternoon which reported that his kidney function had worsened. Patient did have temporary dialysis during his hospitalization however since then had recovery of his kidney function. The patient denies any symptoms. De nies decrease in urination. He does have a indwelling [place]. Denies any abdominal pain or cramping. Denies any changes in his bowel movements including diarrhea, constipation, melanotic stools or hematochezia. Patient does have history of chronic kidney disease. Baseline creatinine was originally around 1.8. Laboratory study obtained at the end of January demonstrated a creatinine of 3. 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 He denies any chest pain or shortness of breath. Denies poor by mouth intake. The remainder of the HPI is limited as the patient is a very poor historian. - Related Data Home Medications Medication Instructions Recorded Confirmed Aspirin [Adult Low Dose Aspirin EC] 81 mg PO DAILY 09/03/18 02/14/19 Amiodarone [Cordarone] 100 mg PO BID 01/25/19 02/14/19 Calcium Acetate [PhosLo] 667 mg PO AC-BID 01/25/19 02/14/19 Collagenase [Santyl] 1 applic TOPICAL DAILY 01/25/19 02/14/19 Diltiazem HCl [Diltiazem ER] 180 mg PO DAILY 01/25/19 02/14/19 Gemfibrozil [Lopid] 600 mg PO AC-BID 01/25/19 02/14/19 Lansoprazole [Prevacid] 15 mg PO DAILY 01/25/19 02/14/19 Lisinopril [Zestril] 20 mg PO DAILY 01/25/19 02/14/19 Potassium Citrate [Potassium 10 meq PO DAILY 01/25/19 02/14/19 Citrate ER] amLODIPine [Norvasc] 10 mg PO DAILY 01/25/19 02/14/19 traMADol HCL [Ultram] 50 mg PO Q6H PRN 01/25/19 02/14/19 Cefuroxime Axetil [Ceftin] 500 mg PO BID 02/14/19 02/14/19 Furosemide [Lasix] 80 mg PO BID 02/14/19 02/14/19 metroNIDAZOLE [Flagyl] 500 mg PO TID 02/14/19 02/14/19 Allergies Allergy/AdvReac Type Severity Reaction Status Date / Time ceftriaxone Allergy Unknown Verified 02/14/19 16:32 Penicillins Allergy Swelling Verified 02/14/19 16:32 Review of Systems ROS Statement: Those systems with pertinent positive or pertinent negative responses have been documented in the HPI. ROS Other: All systems not noted in ROS Statement are negative. Past Medical History Past Medical History: Hypertension, Osteoarthritis (OA), Thyroid Disorder, Vascular Disorder Additional Past Medical History / Comment(s): "no blood flow to legs", arthritis in lower back, edema of lower legs, occ swelling in fingers History of Any Multi-Drug Resistant Organisms: None Reported Past Surgical History: Unable to Obtain Past Anesthesia/Blood Transfusion Reactions: No Reported Reaction Past Psychological History: Unable to Obtain Smoking Status: Current some day smoker Past Alcohol Use History: Unable to Obtain Past Drug Use History: Unable to Obtain - Past Family History Sister(s) Family Medical History: Cancer General Exam Limitations: physical limitation General appearance: alert, in no apparent distress Head exam: Present: atraumatic, normocephalic, normal inspection Eye exam: Present: normal appearance, PERRL, EOMI. Absent: scleral icterus, conjunctival injection, periorbital swelling ENT exam: Present: normal exam, mucous membranes moist Neck exam: Present: normal inspection. Absent: tenderness, meningismus, lymphadenopathy Respiratory exam: Present: normal lung sounds bilaterally. Absent: respiratory distress, wheezes, rales, rhonchi, stridor Cardiovascular Exam: Present: regular rate, normal rhythm, normal heart sounds. Absent: systolic murmur, diastolic murmur, rubs, gallop, clicks GI/Abdominal exam: Present: soft, normal bowel sounds. Absent: distended, tenderness, guarding, rebound, rigid Extremities exam: Present: normal inspection, full ROM, normal capillary refill. Absent: tenderness, pedal edema, joint swelling, calf tenderness Back exam: Present: normal inspection Neurological exam: Present: alert, oriented X3, CN II-XII intact Psychiatric exam: Present: normal affect, normal mood Skin exam: Present: warm, dry, intact, normal color. Absent: rash Course Vital Signs 02/14/19 02/14/19 16:04 18:14 Temperature 97.6 F Pulse Rate 61 55 L Respiratory 16 16 Rate Blood Pressure 96/61 95/57 O2 Sat by Pulse 99 99 Oximetry EKG Findings - EKG Comments: EKG Findings:: EKG demonstrates a normal sinus rhythm with a ventricular rate of 65. OK interval 170. QRS 104. QTC 526. No acute ST segment elevations or depressions concerning for ischemic changes Medical Decision Making - Medical Decision Making Upon arrival the patient was placed into room 27. A thorough history and physical exam was performed. I did recommend repeating the patient's laboratory studies including a urinalysis. Lab studies demonstrated a hemoglobin 11.6. Platelets 487. Creatinine is 5.28. Previous creatinine was 4.5 yesterday and 3.18 on the . BUN 32. Urinalysis shows small blood, large esterase, 6 blood cells, 86 white blood cells, rare bacteria. I discussed results with the patient. I did initiate a 500 mL bolus followed by 100 mL per hour. I gave the patient also Levaquin for his abnormal UA. I did recommend hospitalization for which patient did agree to. I discontinued his lisinopril and Lasix. I'll consult nephrology. Called and discussed case with Gabi who accepted admission for the patient. Bridging orders were placed and patient was transported in stable condition - Lab Data Result diagrams: 02/15/19 06:57 02/16/19 07:14 Lab Results 02/14/19 02/14/19 02/14/19 Range/Units 16:14 16:14 16:51 WBC 8.9 (3.8-10.6) k/uL RBC 4.18 L (4.30-5.90) m/uL Hgb 11.6 L (13.0-17.5) gm/dL Hct 35.8 L (39.0-53.0) % MCV 85.6 (80.0-100.0) fL MCH 27.8 (25.0-35.0) pg MCHC 32.5 (31.0-37.0) g/dL RDW 16.6 H (11.5-15.5) % Plt Count 487 H (150-450) k/uL Neutrophils % 67 % Lymphocytes % 11 % Monocytes % 9 % Eosinophils % 7 % Basophils % 3 % Neutrophils # 5.9 (1.3-7.7) k/uL Lymphocytes # 0.9 L (1.0-4.8) k/uL Monocytes # 0.8 (0-1.0) k/uL Eosinophils # 0.7 (0-0.7) k/uL Basophils # 0.2 (0-0.2) k/uL Anisocytosis Slight Sodium 138 (137-145) mmol/L Potassium 4.3 (3.5-5.1) mmol/L Chloride 103 (98-107) mmol/L Carbon Dioxide 18 L (22-30) mmol/L Anion Gap 17 mmol/L BUN 32 H (9-20) mg/dL Creatinine 5.28 H (0.66-1.25) mg/dL Est GFR (CKD-EPI)AfAm 13 (>60 ml/min/1.73 sqM) Est GFR (CKD-EPI)NonAf 11 (>60 ml/min/1.73 sqM) Glucose 82 (74-99) mg/dL Calcium 10.3 H (8.4-10.2) mg/dL Total Bilirubin 0.5 (0.2-1.3) mg/dL AST 19 (17-59) U/L ALT 11 L (21-72) U/L Alkaline Phosphatase 59 (38-126) U/L Creatine Kinase 49 L (55-170) U/L Total Protein 7.7 (6.3-8.2) g/dL Albumin 4.1 (3.5-5.0) g/dL Urine Color Yellow Urine Appearance Cloudy (Clear) Urine pH 6.0 (5.0-8.0) Ur Specific [place] 1.007 (1.001-1.035) Urine Protein 1+ H (Negative) Urine Glucose (UA) Negative (Negative) Urine Ketones Negative (Negative) Urine Blood Small H (Negative) Urine Nitrite Negative (Negative) Urine Bilirubin Negative (Negative) Urine Urobilinogen <2.0 (<2.0) mg/dL Ur Leukocyte Esterase Large H (Negative) Urine RBC 6 H (0-5) /hpf Urine WBC 86 H (0-5) /hpf Calcium Oxalate Crystal Rare H (None) /hpf Amorphous Sediment Rare H (None) /hpf Urine Bacteria Rare H (None) /hpf Hyaline Casts 27 H (0-2) /lpf Urine Mucus Occasional H (None) /hpf Disposition Clinical Impression: Acute on chronic kidney failure Disposition: ADMITTED IP TO THIS [facility] Condition: Stable Is patient prescribed a controlled substance at d/c from ED?: No Decision to Admit Reason: Admit from [facility] Decision Date: 02/14/19 Decision Time: 19:15
[2019-02-14] MEDS ORDERED: NALOXONE 0.4 MG/ML 1 ML VIAL IV PRN (19:15)
[2019-02-14] MEDS: metroNIDAZOLE 500 MG TAB PO SCH (21:18)
[2019-02-14] MEDS: AMIODARONE 100 MG TAB PO SCH (21:19)
[2019-02-14] MEDS: CEFDINIR 300 MG CAP PO SCH (21:19)
[2019-02-15 08:01] LABS: Calcium 9.8 mg/dL (8.4-10.2); Potassium 3.7 mmol/L (3.5-5.1)
[2019-02-15 08:03] LABS: Anisocytosis Slight; Basophils # (A) 0.1 k/uL (0-0.2); Basophils % (A) 2 %; Eosinophils # (A) 0.7 k/uL (0-0.7); Eosinophils % (A) 8 %; HCT 32.2 % (39.0-53.0); HGB 10.1 gm/dL (13.0-17.5); Hypochromasia Slight; Lymphocytes # (A) 0.9 k/uL (1.0-4.8); Lymphocytes % (A) 9 %; MCHC 31.3 g/dL (31.0-37.0); MCV 86.3 fL (80.0-100.0); Mean Platelet Volume 6.1; Monocytes # (A) 0.7 k/uL (0-1.0); Monocytes % (A) 8 %; Neutrophils # (A) 6.4 k/uL (1.3-7.7); Neutrophils % (A) 70 %; Platelet Count 481 k/uL (150-450); RBC 3.73 m/uL (4.30-5.90); RDW 16.2 % (11.5-15.5); WBC 9.1 k/uL (3.8-10.6)
[2019-02-15] MEDS: amLODIPine 10 MG TAB PO SCH (08:19)
[2019-02-15] MEDS: AMIODARONE 100 MG TAB PO SCH ×2 (08:20→20:55)
[2019-02-15] MEDS: DILTIAZEM CD 180 MG CAP.ER.24H PO SCH (08:20)
[2019-02-15] MEDS: metroNIDAZOLE 500 MG TAB PO SCH ×3 (08:24→20:55)
[2019-02-15] MEDS: CEFDINIR 300 MG CAP PO SCH (08:24)
[2019-02-15] MEDS: ASPIRIN 81 MG PO SCH (08:24)
[2019-02-15] MEDS: PANTOPRAZOLE 40 MG TABLET PO SCH (08:24)
[2019-02-15] MEDS: FENOFIBRATE 160 MG TAB PO SCH (08:24)
[2019-02-15] MEDS: COLLAGENASE 250 UNIT/GM OINTMENT 30 GM TUBE TOPICAL SCH (08:25)
--- NOTE | 2019-02-15 10:33 | P.NPCON ---
History of Present Illness - Reason for Consult acute renal failure - History of Present Illness Reason for consultation: Acute kidney injury History of present illness: A shunt is a 53-year-old male seen in renal consultation for acute kidney injury. Patient was admitted in October 2018 and underwent aortobifemoral bypass graft. During that admission he required temporary hemodialysis. He subsequently recovered kidney function and was taken off hemodialysis. He currently resides at an extended care facility. Patient had blood work done yesterday and was noted to be in acute renal failure and was sent to the hospital. Patient's creatinine was 5.2 yesterday and is 5.4 today. Currently not on any IV fluids. Oral intake has been good. He denies any vomiting or diarrhea. Denies use of nonsteroidals. He has a Webster catheter in place and is nonoliguric. Blood pressure has been low in the systolic 90s. Patient was on multiple antihypertensives including Lasix, lisinopril and amlodipine which are all held at this time. He is currently on antibiotics for presumed UTI. No dizziness or falls. Patient feels fine. He doesn't have any active complaints. Vital signs are stable. General: The patient appeared well nourished and normally developed. HEENT: Head exam is unremarkable. Neck is without jugular venous distension. LUNGS: Lungs are clear to auscultation and percussion. Breath sounds decreased. HEART: Rate and Rhythm are regular. First and second heart sounds normal. No murmurs, rubs or gallops. ABDOMEN: Abdominal exam reveals normal bowel sounds. Non-tender and non-disten ded. No evidence of peritonitis. EXTREMITITES: No clubbing, cyanosis, or edema. Past Medical History Past Medical History: Hypertension, Osteoarthritis (OA), Thyroid Disorder, Vascular Disorder Additional Past Medical History / Comment(s): "no blood flow to legs", arthritis in lower back, edema of lower legs, occ swelling in fingers History of Any Multi-Drug Resistant Organisms: None Reported Past Surgical History: Unable to Obtain Additional Past Surgical History / Comment(s): "aortic bifemoral bypass early 2018" Past Anesthesia/Blood Transfusion Reactions: No Reported Reaction Past Psychological History: Unable to Obtain Smoking Status: Current some day smoker Past Alcohol Use History: Unable to Obtain Past Drug Use History: Unable to Obtain - Past Family History Sister(s) Family Medical History: Cancer Medications and Allergies Home Medications Medication Instructions Recorded Confirmed Type Aspirin [Adult Low Dose Aspirin EC] 81 mg PO DAILY 09/03/18 02/14/19 History Amiodarone [Cordarone] 100 mg PO BID 01/25/19 02/14/19 History Calcium Acetate [PhosLo] 667 mg PO AC-BID 01/25/19 02/14/19 History Collagenase [Santyl] 1 applic TOPICAL DAILY 01/25/19 02/14/19 History Diltiazem HCl [Diltiazem ER] 180 mg PO DAILY 01/25/19 02/14/19 History Gemfibrozil [Lopid] 600 mg PO AC-BID 01/25/19 02/14/19 History Lansoprazole [Prevacid] 15 mg PO DAILY 01/25/19 02/14/19 History Lisinopril [Zestril] 20 mg PO DAILY 01/25/19 02/14/19 History Potassium Citrate [Potassium 10 meq PO DAILY 01/25/19 02/14/19 History Citrate ER] amLODIPine [Norvasc] 10 mg PO DAILY 01/25/19 02/14/19 History traMADol HCL [Ultram] 50 mg PO Q6H PRN 01/25/19 02/14/19 History Cefuroxime Axetil [Ceftin] 500 mg PO BID 02/14/19 02/14/19 History Furosemide [Lasix] 80 mg PO BID 02/14/19 02/14/19 History metroNIDAZOLE [Flagyl] 500 mg PO TID 02/14/19 02/14/19 History Allergies Allergy/AdvReac Type Severity Reaction Status Date / Time ceftriaxone Allergy Unknown Verified 02/14/19 16:32 Penicillins Allergy Swelling Verified 02/14/19 16:32 Physical Exam Vitals: Vital Signs Temp Pulse Pulse Resp BP BP Pulse Ox 02/15/19 05:48 98.5 F 62 20 97/57 95 02/14/19 21:40 98.0 F 62 16 100/58 100 02/14/19 18:14 55 L 16 95/57 99 02/14/19 16:04 97.6 F 61 16 96/61 99 Intake and Output 02/14/19 02/15/19 02/15/19 22:59 06:59 14:59 Intake Total 240 Output Total 850 600 Balance -850 -600 240 Intake: Oral 240 Output: Urine 850 600 Other: Voiding Method Indwelling Catheter Indwelling Catheter # Bowel Movements 1 Weight 77.111 kg Results - Lab Results Most recent lab results Calcium 9.8 mg/dL (8.4-10.2) 02/15/19 06:57 02/15/19 06:57 02/15/19 06:57 Assessment and Plan Plan: Assessment: 1. Acute kidney injury secondary to ATN secondary to hypotension and over diuresis. Creatinine 5.42 today. Patient required temporary hemodialysis in October 2018 due to ATN. 2. Chronic kidney disease stage III with baseline creatinine in the range of 1.3-1.7. 3. Status post aortobifemoral bypass graft in October 2018. 4. Metabolic acidosis secondary to acute kidney injury. 5. Hypertension with chronic kidney disease. Blood pressure currently low. 6. Pyuria maintained on antibiotics. Plan: Start normal saline at 75 mL an hour. Hold antihypertensives for systolic blood pressure less than 120. Hold diuretics. Encourage oral intake. Continue monitor renal function and urine output. Check renal ultrasound. Check urine culture. No urgent need for renal replacement therapy at this time. Thank you for the consultation. I will continue to follow the patient with you during his hospital stay.
[2019-02-15] MEDS: SODIUM CHLORIDE 0.9% 1,000 ML IV SCH ×2 (10:53→20:56)
--- NOTE | 2019-02-15 11:40 | US ---
EXAMINATION TYPE: US kidneys/renal and bladder DATE OF EXAM: 02/15/2019 COMPARISON: NONE CLINICAL HISTORY: marva. EXAM MEASUREMENTS: Right Kidney: 13.1 x 5.9 x 6.2 cm Left Kidney: 8.9 x 4.4 x 4.0 cm Right Kidney: No hydronephrosis or masses seen Left Kidney: atrophied, no hydronephrosis seen Bladder: not seen, patient has catheter. There is no evidence for hydronephrosis at this point in time. No nephrolithiasis is seen. No kelsey s are identified. A Webster catheter is in place.. IMPRESSION: 1. NO EVIDENCE OF HYDRONEPHROSIS AT THIS TIME. 2. THERE IS PERHAPS SOME ATROPHY OF THE LEFT KIDNEY.
[2019-02-15 11:57] VITALS: BMI 28.3
--- NOTE | 2019-02-15 12:12 | P.HPIM ---
History of Present Illness H&P Date: 02/15/19 Chief Complaint: Sent in from [facility] for elevated creatinine Mr. Mazariegos is a 53-year-old male with a past medical history of Aorto bifemoral bypass, stroke, thyroid disorder, hypertension, osteoarthritis sent in from [facility] for elevated creatinine. Patient had a very complicated history with thrombectomies and fasciotomy of the left lower leg and eventually discharged to [facility] for rehab. He had blood work done there showing elevated creatinine and so transferred to the hospital for further evaluation. The patient is completely asymptomatic. He has an indwelling Webster's catheter. Patient denies having any metallic taste in his mouth. No abdominal pain nausea or vomiting. Denies having any change in his bowel habits. Patient has history of CK D Endo was on dialysis for a few days in his previous hospitalization. On reviewing the patient's medications he is also on Ceftin and Flagyl for an ulcer on his back. Currently the patient is lying in bed appears to be in no acute distress. He is not a good historian. Patient denies having any chest pain or palpitations. No cough or difficulty in breathing. No abdominal pain nausea vomiting or diarrhea. Patient has a Webster's catheter denies having any dysuria or hematuria. Patient has a history of stroke and currently undergoing rehab. He denies having any new weakness of his extremities no headaches, no blurring of vision, no slurred speech. On reviewing the patient's Lasix creatinine has been 1.2 weight the time of admission. Review of Systems REVIEW OF SYSTEMS: PSYCH: No history of anxiety or depression NEURO: Recent history of stroke VASCULAR: Denies having any edema HEMATOLOGIC: No history of easy bleeding and bruising . No recent infections . RESPIRATORY: No cough, No SOB, No chest discomfort. IMMUNE: No infections INTEGUMENT: no rashes OPHTHALMOLOGIC: No blurry vision and no eye discharge : No dysuria or hematuria- Webster's catheter in place CARDIAC: No chest pain , shortness of breath , paroxysmal nocturnal dyspnea MUSCULOSKELETAL : Complains of tenderness in his thighs and calves since having the stroke GI: No abdominal pain, Nausea or vomiting. No constipation or diarrhea. All 13 review of systems are done and negative except for the ones mentioned above Past Medical History Past Medical History: CVA/TIA, Hypertension, Osteoarthritis (OA), Thyroid Disorder, Vascular Disorder Additional Past Medical History / Comment(s): "no blood flow to legs", arthritis in lower back, edema of lower legs, occ swelling in fingers History of Any Multi-Drug Resistant Organisms: None Reported Past Surgical History: Unable to Obtain Additional Past Surgical History / Comment(s): "aortic bifemoral bypass early 2018" Past Anesthesia/Blood Transfusion Reactions: No Reported Reaction Past Psychological History: Unable to Obtain Smoking Status: Current some day smoker Past Alcohol Use History: Unable to Obtain Past Drug Use History: Unable to Obtain - Past Family History Sister(s) Family Medical History: Cancer Medications and Allergies Home Medications Medication Instructions Recorded Confirmed Type Aspirin [Adult Low Dose Aspirin EC] 81 mg PO DAILY 09/03/18 02/14/19 History Amiodarone [Cordarone] 100 mg PO BID 01/25/19 02/14/19 History Calcium Acetate [PhosLo] 667 mg PO AC-BID 01/25/19 02/14/19 History Collagenase [Santyl] 1 applic TOPICAL DAILY 01/25/19 02/14/19 History Diltiazem HCl [Diltiazem ER] 180 mg PO DAILY 01/25/19 02/14/19 History Gemfibrozil [Lopid] 600 mg PO AC-BID 01/25/19 02/14/19 History Lansoprazole [Prevacid] 15 mg PO DAILY 01/25/19 02/14/19 History Lisinopril [Zestril] 20 mg PO DAILY 01/25/19 02/14/19 History Potassium Citrate [Potassium 10 meq PO DAILY 01/25/19 02/14/19 History Citrate ER] amLODIPine [Norvasc] 10 mg PO DAILY 01/25/19 02/14/19 History traMADol HCL [Ultram] 50 mg PO Q6H PRN 01/25/19 02/14/19 History Cefuroxime Axetil [Ceftin] 500 mg PO BID 02/14/19 02/14/19 History Furosemide [Lasix] 80 mg PO BID 02/14/19 02/14/19 History metroNIDAZOLE [Flagyl] 500 mg PO TID 02/14/19 02/14/19 History Allergies Allergy/AdvReac Type Severity Reaction Status Date / Time ceftriaxone Allergy Unknown Verified 02/14/19 16:32 Penicillins Allergy Swelling Verified 02/14/19 16:32 Physical Exam Vitals: Vital Signs Temp Pulse Pulse Resp BP BP Pulse Ox 02/15/19 05:48 98.5 F 62 20 97/57 95 02/14/19 21:40 98.0 F 62 16 100/58 100 02/14/19 18:14 55 L 16 95/57 99 02/14/19 16:04 97.6 F 61 16 96/61 99 Intake and Output 02/14/19 02/15/19 02/15/19 22:59 06:59 14:59 Intake Total 240 Output Total 850 600 Balance -850 -600 240 Intake: Oral 240 Output: Urine 850 600 Other: Voiding Method Indwelling Catheter Indwelling Catheter # Bowel Movements 1 Weight 77.111 kg GEN. APPEARANCE: alert, in no apparent distress HEAD EXAM: atraumatic, normocephalic, normal inspection EYE EXAM: No pallor. No icterus. ENT EXAM: normal exam, mucous membranes moist NECK EXAM: normal inspection. Absent: tenderness, meningismus, full ROM, lymphadenopathy RESPIRATORY EXAM: Bilateral breath sounds are positive. No wheeze or crackles. CARDIOVASCULAR EXAM: S1-S2 heard. Nausea sounds. GI/ABDOMINAL EXAM: Midline healing surgical scars seen. Abdomen is soft. Normal bowel sounds. No guarding or rigidity. EXTREMITIES EXAM: No edema. Surgical scars seen on the right lower extremity BACK EXAM: Small and said that is deep with no surrounding redness seen. NEUROLOGICAL EXAM: alert, oriented X 2-3, PSYCHIATRIC EXAM: normal affect, normal mood SKIN EXAM: Sacral decubitus ulcer Results CBC & Chem 7: 02/15/19 06:57 02/15/19 06:57 Labs: Abnormal Lab Results - Last 24 Hours (Table) 02/14/19 02/14/19 02/14/19 Range/Units 16:14 16:14 16:51 RBC 4.18 L (4.30-5.90) m/uL Hgb 11.6 L (13.0-17.5) gm/dL Hct 35.8 L (39.0-53.0) % RDW 16.6 H (11.5-15.5) % Plt Count 487 H (150-450) k/uL Lymphocytes # 0.9 L (1.0-4.8) k/uL Carbon Dioxide 18 L (22-30) mmol/L BUN 32 H (9-20) mg/dL Creatinine 5.28 H (0.66-1.25) mg/dL Calcium 10.3 H (8.4-10.2) mg/dL ALT 11 L (21-72) U/L Creatine Kinase 49 L (55-170) U/L Urine Protein 1+ H (Negative) Urine Blood Small H (Negative) Ur Leukocyte Esterase Large H (Negative) Urine RBC 6 H (0-5) /hpf Urine WBC 86 H (0-5) /hpf Calcium Oxalate Crystal Rare H (None) /hpf Amorphous Sediment Rare H (None) /hpf Urine Bacteria Rare H (None) /hpf Hyaline Casts 27 H (0-2) /lpf Urine Mucus Occasional H (None) /hpf 02/15/19 02/15/19 Range/Units 06:57 06:57 RBC 3.73 L (4.30-5.90) m/uL Hgb 10.1 L (13.0-17.5) gm/dL Hct 32.2 L (39.0-53.0) % RDW 16.2 H (11.5-15.5) % Plt Count 481 H (150-450) k/uL Lymphocytes # 0.9 L (1.0-4.8) k/uL Carbon Dioxide 20 L (22-30) mmol/L BUN 30 H (9-20) mg/dL Creatinine 5.42 H (0.66-1.25) mg/dL Calcium (8.4-10.2) mg/dL ALT (21-72) U/L Creatine Kinase (55-170) U/L Urine Protein (Negative) Urine Blood (Negative) Ur Leukocyte Esterase (Negative) Urine RBC (0-5) /hpf Urine WBC (0-5) /hpf Calcium Oxalate Crystal (None) /hpf Amorphous Sediment (None) /hpf Urine Bacteria (None) /hpf Hyaline Casts (0-2) /lpf Urine Mucus (None) /hpf Thrombosis Risk Factor Assmnt - Choose All That Apply Any of the Below Risk Factors Present?: Yes Each Factor Represents 1 point: Age 41-60 years Other Risk Factors: Yes Other congenital or acquired thrombophilia - If yes, enter type in comment: No Each Risk Factor Represents 5 Points: Stroke (< 1 month) Thrombosis Risk Factor Assessment Total Risk Factor Score: 6 Thrombosis Risk Factor Assessment Level: High Risk Assessment and Plan Assessment: ASSESSMENT Acute kidney injury - most likely prerenal due to over diuresis/hypertension Chronic kidney disease stage 2-3 Metabolic acidosis due to #1 Recent history of stroke Status post aortobifemoral bypass graft Decubitus ulcer Hypertension Suspected UTI- Webster's catheter in place PLAN: Patient's diuretics have been discontinued. He started on IV fluids. Patient is continued on Ceftin and Flagyl for his decubitus ulcer, to complete his antibiotic course. Patient is to resume rest of his home medications. Marina ent received a dose of levofloxacin for suspected UTI. Urine culture is pending. Further recommendations to follow depending on the progress of the patient.
[2019-02-15] MEDS: ENOXAPARIN 40 MG/0.4 ML SYRINGE SQ SCH (12:31)
[2019-02-16] MEDS ORDERED: traMADol 50 MG TAB PO STA
[2019-02-16 07:58] LABS: Calcium 9.8 mg/dL (8.4-10.2); Magnesium 1.7 mg/dL (1.6-2.3); Potassium 3.4 mmol/L (3.5-5.1)
[2019-02-16] MEDS: DILTIAZEM CD 180 MG CAP.ER.24H PO SCH (08:50)
[2019-02-16] MEDS: COLLAGENASE 250 UNIT/GM OINTMENT 30 GM TUBE TOPICAL SCH (08:50)
[2019-02-16] MEDS: AMIODARONE 100 MG TAB PO SCH ×2 (08:50→20:56)
[2019-02-16] MEDS: amLODIPine 10 MG TAB PO SCH (08:50)
[2019-02-16] MEDS ORDERED: POTASSIUM CHLORIDE ER 20 MEQ TAB.ER PO STA (09:06)
[2019-02-16] MEDS: FENOFIBRATE 160 MG TAB PO SCH (09:08)
[2019-02-16] MEDS: ASPIRIN 81 MG PO SCH (09:08)
[2019-02-16] MEDS: metroNIDAZOLE 500 MG TAB PO SCH ×3 (09:08→20:53)
[2019-02-16] MEDS: PANTOPRAZOLE 40 MG TABLET PO SCH (09:08)
[2019-02-16] MEDS: CEFDINIR 300 MG CAP PO SCH (09:08)
[2019-02-16] MEDS: ENOXAPARIN 40 MG/0.4 ML SYRINGE SQ SCH (09:09)
[2019-02-16] MEDS: POTASSIUM CHLORIDE ER 20 MEQ TAB.ER PO SCH ×3 (09:40→12:10)
--- NOTE | 2019-02-16 10:48 | P.PN ---
Subjective Patient is seen in follow-up for acute kidney injury. Renal function is improving. Creatinine 4.26. He is nonoliguric. Oral intake is good. No vomiting or diarrhea. Hemodynamically stable. Vital signs are stable. General: The patient appeared well nourished and normally developed. HEENT: Head exam is unremarkable. Neck is without jugular venous distension. LUNGS: Lungs are clear to auscultation and percussion. Breath sounds decreased. HEART: Rate and Rhythm are regular. First and second heart sounds normal. No murmurs, rubs or gallops. ABDOMEN: Abdominal exam reveals normal bowel sounds. Non-tender and non- distended. No evidence of peritonitis. EXTREMITITES: No clubbing, cyanosis, or edema. Objective - Vital Signs Vital signs: Vital Signs Temp 98.1 F 02/16/19 06:12 Pulse 64 02/16/19 06:12 Resp 18 02/16/19 06:12 BP 114/75 02/16/19 06:12 Pulse Ox 98 02/16/19 06:12 Intake & Output 02/15/19 02/16/19 02/16/19 18:59 06:59 18:59 Intake Total 640 Output Total 3200 1900 1000 Balance -2560 -1900 -1000 Weight 84.5 kg Intake: Oral 640 Output: Urine 3200 1900 1000 Uretheral (Webster) 1000 1000 Other: Voiding Method Indwelling Catheter Indwelling Catheter Indwelling Catheter # Bowel Movements 0 1 - Labs CBC & Chem 7: 02/15/19 06:57 02/16/19 07:14 Labs: Abnormal Lab Results - Last 24 Hours (Table) 02/16/19 Range/Units 07:14 Potassium 3.4 L (3.5-5.1) mmol/L Carbon Dioxide 20 L (22-30) mmol/L BUN 25 H (9-20) mg/dL Creatinine 4.26 H (0.66-1.25) mg/dL Microbiology - Last 24 Hours (Table) 02/15/19 10:12 Urine Culture - Preliminary Urine,Clean Catch Assessment and Plan Plan: Assessment: 1. Acute kidney injury secondary to ATN secondary to hypotension and overdiuresis. Creatinine peaked at 5.42 this admission and is down to 4.26 today. Patient required temporary hemodialysis in October 2018 due to ATN. No evidence of hydronephrosis noted on kidney ultrasound. However her left kidney noted to be atrophic. 2. Chronic kidney disease stage III with baseline creatinine in the range of 1.3-1.7. 3. Status post aortobifemoral bypass graft in October 2018. 4. Metabolic acidosis secondary to acute kidney injury. Stable. 5. Hypertension with chronic kidney disease. Blood pressure was low on a dmission. Now stable. 6. Pyuria maintained on antibiotics. Webster catheter to be changed today. 7. Hypokalemia from diuresis. Urine output over 5 L in the last 24 hours. Plan: Maintain normal saline at 75 mL an hour. Hold antihypertensives for systolic blood pressure less than 120. Hold diuretics. Encourage oral intake. Continue monitor renal function and urine output. Follow-up cultures. Replace potassium. 60 mg once today. No urgent need for renal replacement therapy at this time.
--- NOTE | 2019-02-16 12:06 | P.PN ---
Subjective Progress Note Date: 02/16/19 Principal diagnosis: Acute kidney injury Mr. Mazariegos is a 53-year-old male with a past medical history of Aorto bifemoral bypass, stroke, thyroid disorder, hypertension, osteoarthritis sent in from [facility] for elevated creatinine. Patient had a very complicated history with thrombectomies and fasciotomy of the left lower leg and eventually discharged to [facility] for rehab. He had blood work done there showing elevated creatinine and so transferred to the hospital for further evaluation. On 02/16/2019 - patient is lying in the bed comfortably. No acute events reported by nursing staff overnight. Patient denies having any chest pain or palpitations. No cough or difficulty in breathing. No abdominal pain, and nausea, vomiting or diarrhea. Patient has a Webster's catheter in place. He denies having any hematuria or dysuria. He still has generalized weakness. Active Medications Amiodarone HCl (Cordarone) 100 mg PO BID [facility] Last Admin: 02/16/19 08:50 Dose: Not Given Documented by: Amlodipine Besylate (Norvasc) 10 mg PO DAILY [facility] Last Admin: 02/16/19 08:50 Dose: Not Given Documented by: Aspirin (Aspirin) 81 mg PO DAILY [facility] Last Admin: 02/16/19 09:08 Dose: 81 mg Documented by: Cefdinir (Omnicef) 300 mg PO DAILY [facility] Stop: 02/18/19 09:01 Last Admin: 02/16/19 09:08 Dose: 300 mg Documented by: Diltiazem HCl (Cardizem Cd) 180 mg PO DAILY [facility] Last Admin: 02/16/19 08:50 Dose: Not Given Documented by: Enoxaparin Sodium (Lovenox) 40 mg SQ DAILY [facility] Last Admin: 02/16/19 09:09 Dose: 40 mg Documented by: Fenofibrate (Lofibra) 160 mg PO DAILY [facility] Last Admin: 02/16/19 09:08 Dose: 160 mg Documented by: Sodium Chloride (Saline 0.9%) 1,000 mls @ 75 mls/hr IV .[id number] [facility] Last Admin: 02/15/19 20:56 Dose: 75 mls/hr Documented by: Metronidazole (Flagyl) 500 mg PO TID [facility] Stop: 02/17/19 22:01 Last Admin: 02/16/19 09:08 Dose: 500 mg Documented by: Naloxone HCl (Narcan) 0.2 mg IV Q2M PRN PRN Reason: Opioid Reversal Pantoprazole Sodium (Protonix) 40 mg PO [id number] [facility] Last Admin: 02/16/19 09:08 Dose: 40 mg Documented by: Tramadol HCl (Ultram) 50 mg PO BID [facility] Objective - Vital Signs Vital signs: Vital Signs Temp 98.1 F 02/16/19 06:12 Pulse 64 02/16/19 06:12 Resp 18 02/16/19 06:12 BP 114/75 02/16/19 06:12 Pulse Ox 98 02/16/19 06:12 Intake & Output 02/15/19 02/16/19 02/16/19 18:59 06:59 18:59 Intake Total 640 Output Total 3200 1900 2300 Balance -2560 -1900 -2300 Weight 84.5 kg Intake: Oral 640 Output: Urine 3200 1900 2300 Uretheral (Webster) 1000 2300 Other: Voiding Method Indwelling Catheter Indwelling Catheter Indwelling Catheter # Bowel Movements 0 1 - Exam GEN. APPEARANCE: alert, in no apparent distress HEAD EXAM: atraumatic, normocephalic, normal inspection EYE EXAM: No pallor. No icterus. ENT EXAM: normal exam, mucous membranes moist NECK EXAM: normal inspection. Absent: tenderness, meningismus, full ROM, lymphadenopathy RESPIRATORY EXAM: Bilateral breath sounds are positive. No wheeze or crackles. CARDIOVASCULAR EXAM: S1-S2 heard. Nausea sounds. GI/ABDOMINAL EXAM: Midline healing surgical scars seen. Abdomen is soft. Normal bowel sounds. No guarding or rigidity. EXTREMITIES EXAM: No edema. Surgical scars seen on the right lower extremity BACK EXAM: Sacral decubitus ulcer on the right buttock, having yellowish-green discharge. No surrounding erythema or redness. NEUROLOGICAL EXAM: alert, oriented X 2-3, PSYCHIATRIC EXAM: normal affect, normal mood - Labs CBC & Chem 7: 02/15/19 06:57 02/16/19 07:14 Labs: Abnormal Lab Results - Last 24 Hours (Table) 02/16/19 Range/Units 07:14 Potassium 3.4 L (3.5-5.1) mmol/L Carbon Dioxide 20 L (22-30) mmol/L BUN 25 H (9-20) mg/dL Creatinine 4.26 H (0.66-1.25) mg/dL Microbiology - Last 24 Hours (Table) 02/15/19 10:12 Urine Culture - Preliminary Urine,Clean Catch Assessment and Plan Assessment: ASSESSMENT Acute kidney injury - most likely prerenal due to over diuresis/hypertension Chronic kidney disease stage 2-3 Metabolic acidosis due to #1 Recent history of stroke Status post aortobifemoral bypass graft Decubitus ulcer Hypertension Suspected UTI- Webster's catheter in place PLAN: All the patient's blood pressure medications have been on hold as his blood pressure was running low. His creatinine is slowly trending down. We will continue with normal saline at 75 mL/h. Replace electrolytes. Patient's Webster's catheter will be changed today. Urine cultures pending. He is on Cefdinir and Flagyl for his sacral decubitus ulcer, which are being continued. Continue with GI and DVT prophylaxis Further recommendations to follow depending on the progress of the patient.
[2019-02-16] MEDS: traMADol 50 MG TAB PO SCH ×2 (12:10→20:53)
[2019-02-16] MEDS: SODIUM CHLORIDE 0.9% 1,000 ML IV SCH ×2 (14:09→20:51)
[2019-02-17 08:16] LABS: Magnesium 1.4 mg/dL (1.6-2.3); Potassium 3.5 mmol/L (3.5-5.1)
[2019-02-17] MEDS: ASPIRIN 81 MG PO SCH (08:35)
[2019-02-17] MEDS: traMADol 50 MG TAB PO SCH ×2 (08:35→21:14)
[2019-02-17] MEDS: PANTOPRAZOLE 40 MG TABLET PO SCH (08:35)
[2019-02-17] MEDS: metroNIDAZOLE 500 MG TAB PO SCH ×3 (08:36→21:14)
[2019-02-17] MEDS: ENOXAPARIN 30 MG/0.3 ML SYRINGE SQ SCH (08:36)
[2019-02-17] MEDS: FENOFIBRATE 160 MG TAB PO SCH (08:36)
[2019-02-17] MEDS: AMIODARONE 100 MG TAB PO SCH ×2 (08:37→21:14)
[2019-02-17] MEDS: DILTIAZEM CD 180 MG CAP.ER.24H PO SCH (08:37)
[2019-02-17] MEDS: CEFDINIR 300 MG CAP PO SCH (08:37)
[2019-02-17] MEDS: amLODIPine 10 MG TAB PO SCH (08:37)
--- NOTE | 2019-02-17 13:46 | PN ---
PROGRESS NOTE The patient is seen for followup for acute kidney injury. Renal function has improved significantly. Creatinine going down from 5.2 to 3.1 mg/dL. It appears to be mostly obstructive uropathy. Patient currently has an indwelling Webster catheter. He states he feels well. He denies any significant complaints. There was also a component of hypotension and diuresis. PHYSICAL EXAMINATION: On examination today, blood pressure is 126/74, heart rate 64 per minute. Patient is afebrile. EXAMINATION OF THE HEART: S1, S2. EXAMINATION OF THE LUNGS: Bilateral breath sounds are heard. ABDOMEN: Soft, nontender. Examination of lower extremities shows no significant edema. LABS: Labs show sodium 140, potassium 3.5, BUN 24, creatinine 3.15, hemoglobin 10.1 g/dL. ASSESSMENT: 1. Acute kidney injury associated with hypotension also a component of obstructive uropathy, maintained with a Webster catheter. Renal function continues to improve. Patient is maintained on IV fluids. 2. Chronic kidney disease stage 3. Baseline creatinine 1.3 to 1.7 mg/dL. 3. Status post aortobifemoral bypass, October of 2018. 4. Metabolic acidosis associated with renal failure, currently stable. 5. Pyuria, maintained on antibiotics. Urine culture did not show any growth. 6. Hypokalemia from diuresis. PLAN: Continue to encourage increase oral intake. Continue with IV fluids for now. Repeat labs in a.m. Continue with the Webster catheter. MMODL / IJN: [id number] /
[2019-02-17] MEDS: SODIUM CHLORIDE 0.9% 1,000 ML IV SCH (15:12)
--- NOTE | 2019-02-17 16:37 | P.PN ---
Subjective Progress Note Date: 02/17/19 Principal diagnosis: Acute kidney injury Mr. Mazariegos is a 53-year-old male with a past medical history of Aorto bifemoral bypass, stroke, thyroid disorder, hypertension, osteoarthritis sent in from [facility] for elevated creatinine. Patient had a very complicated history with thrombectomies and fasciotomy of the left lower leg and eventually discharged to [facility] for rehab. He had blood work done there showing elevated creatinine and so transferred to the hospital for further evaluation. He is being treated for acute on chronic kidney injury. On 02/17 - patient is lying in the bed comfortably. No acute events reported by nursing staff overnight. Patient denies having any chest pain or palpitations. No cough or difficulty in breathing. No abdominal pain, and nausea, vomiting or diarrhea. Patient has a Webster's catheter in place. He denies having any hematuria or dysuria. He still has generalized weakness. On reviewing the patient's labs his creatinine has trended down to 3.15. Active Medications Amiodarone HCl (Cordarone) 100 mg PO BID [facility] Last Admin: 02/17/19 08:37 Dose: Not Given Documented by: Amlodipine Besylate (Norvasc) 10 mg PO DAILY [facility] Last Admin: 02/17/19 08:37 Dose: Not Given Documented by: Aspirin (Aspirin) 81 mg PO DAILY [facility] Last Admin: 02/17/19 08:35 Dose: 81 mg Documented by: Diltiazem HCl (Cardizem Cd) 180 mg PO DAILY [facility] Last Admin: 02/17/19 08:37 Dose: Not Given Documented by: Enoxaparin Sodium (Lovenox) 30 mg SQ DAILY [facility] Last Admin: 02/17/19 08:36 Dose: 30 mg Documented by: Fenofibrate (Lofibra) 160 mg PO DAILY [facility] Last Admin: 02/17/19 08:36 Dose: 160 mg Documented by: Sodium Chloride (Saline 0.9%) 1,000 mls @ 75 mls/hr IV .[id number] [facility] Last Admin: 02/17/19 15:12 Dose: 75 mls/hr Documented by: Metronidazole (Flagyl) 500 mg PO TID [facility] Stop: 02/17/19 22:01 Last Admin: 02/17/19 15:12 Dose: 500 mg Documented by: Naloxone HCl (Narcan) 0.2 mg IV Q2M PRN PRN Reason: Opioid Reversal Pantoprazole Sodium (Protonix) 40 mg PO AC-BRKFST [facility] Last Admin: 02/17/19 08:35 Dose: 40 mg Documented by: Tramadol HCl (Ultram) 50 mg PO BID [facility] Last Admin: 02/17/19 08:35 Dose: 50 mg Documented by: Objective - Vital Signs Vital signs: Vital Signs Temp 97.7 F 02/17/19 15:00 Pulse 67 02/17/19 15:46 Resp 16 02/17/19 15:46 BP 112/75 02/17/19 15:00 Pulse Ox 99 02/17/19 15:00 Intake & Output 02/16/19 02/17/19 02/17/19 18:59 06:59 18:59 Intake Total 800 500 210 Output Total 4100 1300 3200 Balance -3300 -800 -2990 Intake: Oral 800 500 210 Output: Urine 4100 1300 3200 Uretheral (Webster) 2300 Other: Voiding Method Indwelling Catheter Indwelling Catheter Indwelling Catheter # Bowel Movements 0 0 - Exam GEN. APPEARANCE: alert, in no apparent distress HEENT - no pallor. No icterus. Mucous membranes are moist. RESPIRATORY EXAM: Bilateral breath sounds are positive. No wheeze or crackles. CARDIOVASCULAR EXAM: S1-S2 heard. Nausea sounds. GI/ABDOMINAL EXAM: Midline healing surgical scars seen. Abdomen is soft. Normal bowel sounds. No guarding or rigidity. EXTREMITIES EXAM: No edema. Surgical scars seen on the right lower extremity BACK EXAM: Sacral decubitus ulcer on the right buttock, having yellowish-green discharge. No surrounding erythema or redness. NEUROLOGICAL EXAM: alert, oriented X 2-3, PSYCHIATRIC EXAM: normal affect, normal mood - Labs CBC & Chem 7: 02/15/19 06:57 02/17/19 07:39 Labs: Abnormal Lab Results - Last 24 Hours (Table) 02/17/19 Range/Units 07:39 BUN 24 H (9-20) mg/dL Creatinine 3.15 H (0.66-1.25) mg/dL Magnesium 1.4 L (1.6-2.3) mg/dL Microbiology - Last 24 Hours (Table) 02/15/19 10:12 Urine Culture - Final Urine,Clean Catch Assessment and Plan Assessment: ASSESSMENT Acute kidney injury - most likely prerenal due to over diuresis/hypotension - creatinine slowly trending down Chronic kidney disease stage 2-3 Metabolic acidosis due to #1 Recent history of stroke Status post aortobifemoral bypass graft Decubitus ulcer Hypertension Suspected UTI- Webster's catheter in place PLAN: As the patient's blood pressure is trending up, he has been started on his home blood pressure medications. His creatinine is slowly trending down. We will continue with normal saline at 75 mL/h. Replace electrolytes. Patient's Webster's catheter will be changed today. Urine cultures - no growth. He is on Cefdinir and Flagyl for his sacral decubitus ulcer, which are being continued. Continue with GI and DVT prophylaxis Further recommendations to follow depending on the progress of the patient.
[2019-02-18] MEDS: SODIUM CHLORIDE 0.9% 1,000 ML IV SCH (04:35)
[2019-02-18] MEDS: FENOFIBRATE 160 MG TAB PO SCH (07:05)
[2019-02-18] MEDS: DILTIAZEM CD 180 MG CAP.ER.24H PO SCH (07:06)
[2019-02-18] MEDS: ASPIRIN 81 MG PO SCH (07:06)
[2019-02-18] MEDS: amLODIPine 10 MG TAB PO SCH (07:06)
[2019-02-18] MEDS: AMIODARONE 100 MG TAB PO SCH (07:06)
[2019-02-18] MEDS: ENOXAPARIN 30 MG/0.3 ML SYRINGE SQ SCH (07:06)
[2019-02-18] MEDS: PANTOPRAZOLE 40 MG TABLET PO SCH (07:06)
[2019-02-18] MEDS: traMADol 50 MG TAB PO SCH (07:06)
[2019-02-18 08:14] LABS: Calcium 9.6 mg/dL (8.4-10.2); Potassium 3.4 mmol/L (3.5-5.1)
[2019-02-18] MEDS ORDERED: POTASSIUM CHLORIDE ER 20 MEQ TAB.ER PO ONE (10:30)
[2019-02-18] MEDS ORDERED: HYDROcodone/APAP 5-325MG 1 EACH TAB PO STA (13:46)
[2019-02-18] MEDS: MAGNESIUM SULFATE-D5W PMX 1 GM in DEXTROSE/WATER 1 100ML.BAG IVPB SCH ×2 (13:56→15:00)
--- NOTE | 2019-02-18 14:00 | P.DS ---
Providers Date of admission: 02/14/19 19:15 Expected date of discharge: 02/18/19 Attending physician: Dillon Elmore Consults: 02/14/19 19:16 Consult Physician Urgent Consulting Provider: Eleno Thakur Consult Reason/Comments: MY/CKD Do you want consulting provider notified?: Yes Primary care physician: [facility] Course: Final diagnosis Acute kidney injury, most likely prerenal due to overdiuresis/hypotension Chronic kidney disease stage II to 3 Metabolic acidosis due to acute kidney injury Recent history of stroke Status post aortobifemoral bypass graft Decubitus ulcer Hypertension Suspected UTI, Webster catheter in place, chronic Discharge disposition Patient is being discharged in stable condition with guarded prognosis to [facility]. Patient will follow-up with nephrology in the outpatient setting in 1-2 weeks. Patient will need repeat labs in 2-3 days. Total time taken is 35 minutes. History of present illness This is a 53-year-old male who was recently admitted elevated creatinine and was being closely monitored. Nephrology was consulted. Patient will follow-up with nephrology in the outpatient setting in 1-2 weeks. Patient will need repeat labs in 2-3 days to monitor creatinine. Creatinine is trending down and is currently 2.75. Patient also has a decubitus ulcer of the buttock and is currently on antibiotics and will continue upon discharge. Patient will continue with wound care as instructed and discharge instructions. Patient denies any chest pain, shortness of breath, or palpitations at this time. Patient is afebrile. Patient denies any nausea or vomiting and is tolerating diet. Patient states that he is not eating much as it doesn't taste very good. Currently patient's condition is stable and improving and able for discharge today. On exam vital signs are stable. Temp is 98.3F, pulse is 71, respirations are 18, blood pressure is 102/64, oxygen saturation is 97% on room air. Cardio S1 and S2 are present. Respiratory system shows clear to auscultation. Abdomen is soft and nontender. Nervous system shows no focal deficits. Please refer to medication reconciliation sheet for a list of medications. Patient Condition at Discharge: Stable Plan - Discharge Summary Discharge Rx Participant: No New Discharge Prescriptions: New RX: Pantoprazole [Protonix] 40 mg PO AC-BRKFST tablet. Continue RX: Aspirin [Adult Low Dose Aspirin EC] 81 mg PO DAILY RX: Collagenase [Santyl] 1 applic TOPICAL DAILY RX: Potassium Citrate [Potassium Citrate ER] 10 meq PO DAILY RX: Gemfibrozil [Lopid] 600 mg PO AC-BID RX: Diltiazem HCl [Diltiazem 24Hr ER (LA)] 180 mg PO DAILY RX: Calcium Acetate [PhosLo] 667 mg PO AC-BID RX: amLODIPine [Norvasc] 10 mg PO DAILY RX: Amiodarone [Cordarone] 100 mg PO BID Changed RX: traMADol HCL [Ultram] 50 mg PO BID #12 tab Discontinued Lisinopril [Zestril] 20 mg PO DAILY Lansoprazole [Prevacid] 15 mg PO DAILY metroNIDAZOLE [Flagyl] 500 mg PO TID Furosemide [Lasix] 80 mg PO BID Cefuroxime Axetil [Ceftin] 500 mg PO BID Discharge Medication List RX: Aspirin [Adult Low Dose Aspirin EC] 81 mg PO DAILY 09/03/18 [History] RX: Amiodarone [Cordarone] 100 mg PO BID 01/25/19 [History] RX: Calcium Acetate [PhosLo] 667 mg PO AC-BID 01/25/19 [History] RX: Collagenase [Santyl] 1 applic TOPICAL DAILY 01/25/19 [History] RX: Diltiazem HCl [Diltiazem 24Hr ER (LA)] 180 mg PO DAILY 01/25/19 [History] RX: Gemfibrozil [Lopid] 600 mg PO AC-BID 01/25/19 [History] RX: Potassium Citrate [Potassium Citrate ER] 10 meq PO DAILY 01/25/19 [History] RX: amLODIPine [Norvasc] 10 mg PO DAILY 01/25/19 [History] RX: Pantoprazole [Protonix] 40 mg PO AC-BRKFST tablet. 02/18/19 [Rx] RX: traMADol HCL [Ultram] 50 mg PO BID #12 tab 02/18/19 [Rx] Follow up Appointment(s)/Referral(s): Shayy Gutierrez MD [STAFF PHYSICIAN] - 2 Weeks Scott Solis DO [Primary Care Provider] - 1-2 days Ambulatory/Diagnostic Orders: Basic Metabolic Panel [LAB.AMB] Time Frame: 3 Days, Location: None Selected Patient Instructions/Handouts: Chronic Kidney Disease (DC) Activity/Diet/Wound Care/Special Instructions: Activity as tolerated Continue with renal diet Follow-up with primary care provider upon discharge Follow-up with nephrology in 1-2 weeks Repeat labs in 2-3 days Continue with wound care of the buttocks with iodoform packing Discharge Disposition: TRANSFER TO SNF/ECF
[2019-02-18 15:06] VITALS: BP 129/75; PULSE 68; RESP 16; TEMP 98.6
--- NOTE | 2019-02-18 16:08 | PN ---
PROGRESS NOTE Patient is seen for followup for acute kidney injury. Renal function has improved significantly. Creatinine down from 5.4 to 2.75 today. Patient has an indwelling Webster catheter with good urine output. PHYSICAL EXAMINATION: On examination today, blood pressure was 102/64, heart rate 71 per minute. He is afebrile. Examination of the heart S1, S2. Examination of the lungs, bilateral breath sounds are heard. ABDOMEN: Soft, nontender. Examination of lower extremities shows no edema. [employer] exam grossly intact. LABS: Show sodium 139, potassium 3.4, BUN 21, creatinine 2.75. ASSESSMENT: 1. Acute kidney injury, acute tubular necrosis versus obstructive uropathy, currently with indwelling Webster catheter with good urine output. Renal function continues to improve. 2. Hypokalemia associated with decreased oral intake. We will replace. 3. Hypertension now controlled. 4. Volume depletion now improved status post IV fluids. 5. Chronic kidney disease stage 3 baseline creatinine 1.3-1.7 mg/dL. PLAN: Patient is stable for discharge. Monitor for discontinuation of Webster catheter as outpatient. MMODL / IJN: [id number] /
--- NOTE | 2019-02-19 13:57 | CDI ---
Documentation Clarification Form Date: 02/18/2019 3:39:56 PM From: Bobbi Cameron Phone: '[phone] Admit Date: 02/18/2019 9:47:00 AM Patient Name: Ralph Agarwal Visit Number: [id number] Discharge Date: ATTENTION: The Clinical Documentation Specialists (CDI) and [facility] Coding Staff appreciate your assistance in clarifying documentation. Please respond to the clarification below the line at the bottom and electronically sign. The CDI & [facility] Coding staff will review the response and follow-up if needed. Please note: Queries are made part of the Legal Health Record. If you have any questions, please contact the author of this message via ITS. Dr. Dillon Elmore Suspected UTI, Almanza catheter in place, chronic is documented in your Discharge summary 04/20/2019 History/Risk Factors: 53-year-old male presents to ED via EMS from [facility] abnormal lab. Medical history Chronic indwelling Almanza catheter; Clinical Indicators: Vital Signs: WBC: 02/18 129/75 68 98.6 16 99% ra Urinalysis: protein 1+; blood small ; leukocyte esterase large : hyaline casts 27; urine bacteria rare Urine Culture: no growth after 18 hours Treatment Catheter exchange Antibiotics Flagyl ivpb started 02/14/2019 discontinued 02/17/2019; Levaquin ivpb started 02/14/2019 discontinued 02/14/2019; Omnicef po bid started 02/14 d/c 02/15; Omnicef started 02/16 po daily to 02/18/2019 Please document the condition that these clinical indicators signify, whether Present on Admission, and cause if known: * UTI due to almanza catheter poa * UTI poa * Other, please specify * Unable to determine (Last Revision: February 2017) UTI due to almanza catheter poa MTDD
== END 2019-02-18 16:45 | DRG 683 ==
LOC: EC 16:02 → 4MS4W 19:15 → OBSVTOIN 02-18 09:47
PROVIDERS: ADMIT Hospitalist; ATTEND Hospitalist
DX: N17.0 Acute kidney failure with tubular necrosis (principal); T83.511A Infection and inflammatory reaction due to indwelling urethral catheter, initial encounter; N39.0 Urinary tract infection, site not specified; E87.2 Acidosis; E86.9 Volume depletion, unspecified; E87.6 Hypokalemia; F17.210 Nicotine dependence, cigarettes, uncomplicated; I12.9 Hypertensive chronic kidney disease with stage 1 through stage 4 chronic kidney disease, or unspecified chronic kidney disease; L89.309 Pressure ulcer of unspecified buttock, unspecified stage; N13.9 Obstructive and reflux uropathy, unspecified; N18.3 Chronic kidney disease, stage 3 (moderate); T50.2X5A Adverse effect of carbonic-anhydrase inhibitors, benzothiadiazides and other diuretics, initial encounter; Z79.82 Long term (current) use of aspirin; Z79.899 Other long term (current) drug therapy; Z86.73 Personal history of transient ischemic attack (TIA), and cerebral infarction without residual deficits; I95.9 Hypotension, unspecified; Z88.1 Allergy status to other antibiotic agents; Z88.0 Allergy status to penicillin; M19.90 Unspecified osteoarthritis, unspecified site
CPT/HCPCS: 36415; 76770; 80048; 80053; 81001; 82550; 83735; 85025; 87086; 93005; 96365; 96366; 99285

== ENCOUNTER → 2020-06-15 | Outpatient (CLI) | payer OTHER ==
--- NOTE | 2020-06-15 12:42 | CT ---
EXAMINATION TYPE: CT angio neck DATE OF EXAM: 06/15/2020 HISTORY: Carotid stenosis COMPARISON: CT neck 01/25/2019 CT DLP: 400 mGycm. Automated Exposure Control for Dose Reduction was Utilized. TECHNIQUE: CTA scan of the neck is performed without and with IV Contrast, patient injected with 65 ml mL of Isovue 370, axial images are obtained, coronal and sagittal reformatted images are reviewed. Three-D reconstructed images are created on an independent workstation and reviewed. FINDINGS: Carotid/Vascular Structures: Transverse aorta is patent. The innominate, left and right common caroti d, left and right subclavian arteries are patent. There is proximal internal carotid artery stenosis of the left is approximately 50%, measurement tools are not optimal however. External carotid arterie s occluded proximally. Right internal carotid artery is widely patent. Right external carotid artery is patent. Vertebral arteries are patent and codominant. Other: Emphysematous changes are present in the upper lobes. IMPRESSION: Hemodynamic significant stenosis thought to measure approximately 50% as described, consi dean correlation with carotid Doppler.
== END | disposition home or self-care (01) ==
LOC: RADCTMAIN 09:03
PROVIDERS: ATTEND Nurse Practitioner Adult Health
DX: I65.8 Occlusion and stenosis of other precerebral arteries (principal)
CPT/HCPCS: 70498; Q9967

== ENCOUNTER → 2021-09-01 | Outpatient (CLI) | payer MEDICARE, OTHER ==
--- NOTE | 2021-09-01 22:49 | CT ---
EXAMINATION TYPE: CT angio neck DATE OF EXAM: 09/01/2021 HISTORY: Occlusion/stenosis of unspecified carotid. COMPARISON: CTA neck 06/15/2020 CT DLP: 366.8 mGycm. Automated Exposure Control for Dose Reduction was Utilized. TECHNIQUE: CTA scan of the neck is performed with IV Contrast, patient injected with 65 mL of Isovue 370, axial images are obtained, coronal and sagittal reformatted images are reviewed. 3D reconstruct ed images are created on an independent workstation and reviewed. NASCET Criteria was utilized to determine degree of stenosis. FINDINGS: Carotid/Vascular Structures: Normal three-vessel aortic arch with patent origins of the great vessels. Moderate atherosclerotic va scular calcifications of the right carotid bifurcation and proximal internal carotid artery with mini mal luminal narrowing (less than 25%). Mildly progressed calcified and noncalcified plaque of the lef t carotid bifurcation and proximal internal carotid artery with mildly progressed severe luminal narr owing of the proximal left internal carotid artery (approximately 75%). Patent origins of the vertebral arteries. Slightly dominant left vertebral artery. Bilateral vertebra l arteries appear normal. Limited visualization of the [place] of [place] demonstrates a origin of the right posterior cere bral artery and otherwise appears normal. Other: Mild emphysematous changes of the lung apices. Mild to moderate multilevel degenerative change s of the cervical spine. IMPRESSION: 1. Mildly progressed severe stenosis of the proximal left internal carotid artery, approximately 75% luminal narrowing. NASCET criteria was used in interpretation of this exam?
== END | disposition home or self-care (01) ==
LOC: RADCTMAIN 10:57
PROVIDERS: ATTEND Internal Medicine Interventional Cardiology
DX: I65.22 Occlusion and stenosis of left carotid artery (principal)
CPT/HCPCS: 82565; 84520; 70498; 36415; Q9967

== ENCOUNTER 2021-11-02 06:09 | Inpatient (IN) | payer MEDICARE, OTHER ==
[~2021-11-02 06:09] MED LIST changes: +ALPRAZolam 0.25 MG TAB PO PRN; +ALPRAZolam 0.5 MG TAB PO PRN; +CLINDAMYCIN 600 MG in SODIUM CHLORIDE 0.9% 250 ML IRRIGATION PRN; -CLINDAMYCIN 900 MG in DEXTROSE 5% IN WATER 50 ML IVPB ONE; +CLINDAMYCIN 900 MG in DEXTROSE 5% IN WATER 50 ML IVPB PRN; -DEXAMETHASONE SOD PHOSPHATE 10 MG/ML 1 ML VIAL IV ONE; -LIDOCAINE 1% 20 ML VIAL (10MG/ML) FOR IV START INTRADERMA PRN; -MIDAZOLAM 2 MG/2 ML VIAL IV PRN; +NITROGLYCERIN SL TABS 0.4 MG TAB SUBLINGUAL PRN; +SODIUM CHLORIDE 0.9% 1,000 ML in EMPTY BAG 1 BAG IV ONE; -fentaNYL (PF) 50 MCG/ML 2 ML AMP IV PRN
[2021-11-02] MEDS ORDERED: ASPIRIN 81 MG ONE (06:52)
[2021-11-02 06:56] LABS: INR 1.1 (<1.2); Prothrombin Time 12.1 sec (9.0-12.0)
[2021-11-02] MEDS ORDERED: HEPARIN SODIUM 1,000 UN/ML (10ML VL) ONE (07:45)
[2021-11-02] MEDS ORDERED: LIDOCAINE 1% INJ 10MG/ML (30 ML VIAL-PF) SQ ONE ×3 (07:54→08:00)
[2021-11-02] MEDS ORDERED: CLOPIDOGREL 75 MG TAB ONE (08:01)
[2021-11-02] MEDS ORDERED: CLOPIDOGREL 75 MG TAB PO ONE (08:05)
[2021-11-02] MEDS: HEPARIN SODIUM 1,000 UN/ML (10ML VL) IV ONE ×3 (08:15→09:20)
[2021-11-02] MEDS ORDERED: ONDANSETRON 4 MG/2 ML VIAL ONE (08:17)
[2021-11-02] MEDS ORDERED: ONDANSETRON 4 MG/2 ML VIAL IVP ONE (08:19)
[2021-11-02] MEDS ORDERED: IOPAMIDOL-370 125ML BTL INJ ONE ×2 (09:48→09:49)
[2021-11-02] MEDS: fentaNYL (PF) 50 MCG/ML 2 ML AMP ONE ×2 (10:14→17:10)
[2021-11-02] MEDS: fentaNYL (PF) 50 MCG/ML 2 ML AMP IVP ONE ×2 (10:14→13:11)
[2021-11-02] MEDS ORDERED: hydrALAZINE HCL 20 MG/ML 1 ML VIAL IVP PRN (10:15)
[2021-11-02] MEDS ORDERED: fentaNYL (PF) 50 MCG/ML 2 ML AMP IVP PRN (10:15)
[2021-11-02] MEDS ORDERED: ZOLPIDEM 5 MG TAB PO PRN (10:28)
[2021-11-02] MEDS ORDERED: MAG HYDROX/AL HYDROX/SIMETH 30 ML CUP PO PRN (10:28)
[2021-11-02] MEDS ORDERED: ATROPINE SULFATE 0.1 MG/ML 10ML SYRINGE IV PRN (10:28)
[2021-11-02] MEDS ORDERED: NITROGLYCERIN SL TABS 0.4 MG TAB SUBLINGUAL PRN (10:28)
[2021-11-02] MEDS ORDERED: RX INFO: IV CONTRAST WAS GIVEN 1 EACH MISC MISCELLANE PRN (10:28)
[2021-11-02] MEDS ORDERED: SODIUM CHLORIDE 0.9% 1,000 ML in EMPTY BAG 1 BAG IV SCH (10:30)
--- NOTE | 2021-11-02 10:34 | P.PCN ---
Date of Procedure: 11/02/21 Operative Findings: CAROTID ARTERY INTERVENTION Performing physician Gael Deutsch M.D. Procedure performed #1 successful stenting of the left internal carotid artery using 9-7 mm x 30 mm Xact with adjunctive use of filter wire #2 selective left common and left internal carotid artery angiogram #3 an aortic arch angiogram #4 intracranial angiogram #5 ultrasound-guided access of the right common femoral artery Indication This is a 56-year-old gentleman with lower extent his peripheral arterial disease and status post aortobifem as well as multiple comorbid conditions was diagnosed recently with severe symptomatic disease involving the left internal carotid artery CTA was performed and confirmed that. Approach Left common femoral artery Complication None Level of sedation No sedation was given during the procedure. The procedure length was 104 minute Procedure description After obtaining an informed consent the patient was brought to the cardiac clinical laboratory aide. Initially we attempted cannulating the right common femoral artery but the pulse was weak and for that reason we decided to go from the left common femoral artery The right common femoral artery was cannulated using puncture technique under ultrasound guidance, the micropuncture wire passed easily then replace 70 cm 6- [place] shuttle sheath in the right common femoral artery over an 035 stiff Glidewire. That point anticoagulation was initiated and the patient was given 6000 use of heparin at the beginning of the procedure with continuous ACT monitoring throughout the procedure Subsequently I did aortic arch angiogram using 5-[place] pigtail catheter. The aortic arch angiogram revealed type II aortic arch was bovine arch Attempting engaging the left common carotid artery using a JB2 catheter was unsuccessful but I was able to get it using PTK catheter. Then I advanced initially super core wire but that did not work because the catheter would not advanced over the wire. I was able finally able to get it using the PTK catheter and then I used stiffer glide wire and subsequently I exchanged the PTK catheter into multipurpose catheter. With that being saved I was able to advance the sheath over the multipurpose catheter and a stiff Glidewire. Left common and left internal carotid artery angiogram was performed and revealed critical lesion involving the left common carotid artery right after the takeoff from the left common carotid artery. At that point and after prepping the filter wire and that was 7.2 mm Emboshield YA filter wire I did advance the wire through the lesion in the left common carotid artery and subsequently I deployed the filter under fluoroscopy guidance. Predilatation of the lesion was performed using 4 mm balloon. Subsequently I deployed a 9-7 mm x 30 mm Xact stent under fluoroscopy guidance after the stent was positioned under fluoroscopy guidance. Postdilatation was performed using 5 mm balloon. The following angiogram showed an excellent angiographic results and the pro cedure was completed without any complication Postprocedure management #1 dual antiplatelet therapy #2 restart the patient back on anticoagulation #3 pulled the sheath from the right groin and manual bleeding control #4 and ICU monitoring #5 follow-up with the patient
[2021-11-02] MEDS ORDERED: hydrALAZINE HCL 20 MG/ML 1 ML VIAL IVP STA (12:19)
[2021-11-02] MEDS ORDERED: ENALAPRILAT 1.25 MG/ML 1 ML VIAL ONE (13:20)
[2021-11-02] MEDS ORDERED: ENALAPRILAT 1.25 MG/ML 1 ML VIAL IVP ONE (13:24)
[2021-11-02] MEDS ORDERED: hydrALAZINE HCL 20 MG/ML 1 ML VIAL IVP ONE (13:24)
[2021-11-02 15:56] LABS: Glucose,Whole Blood 123 mg/dL (70-110)
--- NOTE | 2021-11-02 16:04 | IR ---
EXAMINATION TYPE: IR stent intravas non coronary DATE OF EXAM: 11/02/2021 COMPARISON: NONE HISTORY: Fluoroscopy time. Fluoroscopy was provided to the referring clinician.
[2021-11-02] MEDS ORDERED: ACETAMINOPHEN TAB 325 MG TAB PO PRN (16:17)
[2021-11-02 16:54] LABS: Basophils # (A) 0.1 k/uL (0-0.2); Basophils % (A) 1 %; Eosinophils # (A) 0.1 k/uL (0-0.7); Eosinophils % (A) 1 %; HCT 43.5 % (39.0-53.0); HGB 14.5 gm/dL (13.0-17.5); Lymphocytes % (A) 6 %; MCH 29.6 pg (25.0-35.0); MCHC 33.4 g/dL (31.0-37.0); MCV 88.7 fL (80.0-100.0); Mean Platelet Volume 8.4; Monocytes # (A) 1.1 k/uL (0-1.0); Monocytes % (A) 7 %; Neutrophils # (A) 13.9 k/uL (1.3-7.7); Neutrophils % (A) 85 %; Platelet Count 249 k/uL (150-450); RBC 4.91 m/uL (4.30-5.90); RDW 14.2 % (11.5-15.5); WBC 16.3 k/uL (3.8-10.6)
[2021-11-02] MEDS: carvediloL 12.5 MG TAB PO SCH (17:12)
[2021-11-02] MEDS: CALCIUM ACETATE 667 MG TAB PO SCH (17:13)
[2021-11-02 17:36] LABS: ALT 21 U/L (4-49); AST 22 U/L (17-59); African American GFR (CKD) 64 (>60 ml/min/1.73 sqM); Albumin 3.8 g/dL (3.5-5.0); Alkaline Phosphatase 93 U/L (38-126); Anion Gap 7 mmol/L; Blood Urea Nitrogen 15 mg/dL (9-20); Calcium 8.4 mg/dL (8.4-10.2); Carbon Dioxide 20 mmol/L (22-30); Chloride 109 mmol/L (98-107); Glucose 117 mg/dL (74-99); Non-African American GFR(CKD) 56 (>60 ml/min/1.73 sqM); Potassium 3.5 mmol/L (3.5-5.1); Sodium 136 mmol/L (137-145); Total Bilirubin 0.6 mg/dL (0.2-1.3); Total Protein 6.6 g/dL (6.3-8.2)
[2021-11-02] MEDS: traMADol 50 MG TAB PO SCH (20:57)
[2021-11-02] MEDS: SPIRONOLACTONE-HCTZ 25-25MG 1 EACH TAB PO SCH (20:58)
[2021-11-02] MEDS: AMIODARONE 100 MG TAB PO SCH (20:58)
[2021-11-02] MEDS: cilostazoL 100 MG TAB PO SCH (20:58)
[2021-11-02] MEDS ORDERED: ATORVASTATIN 80 MG TAB PO SCH (21:00)
--- NOTE | 2021-11-02 21:04 | CONS ---
CONSULTATION CHIEF COMPLAINT: Left carotid stenosis. HISTORY OF PRESENT ILLNESS: This is another admission for this 56-year-old male. Several years ago he had extreme and severe difficulty with peripheral vascular disease and underwent revascularization procedure with subsequent edema and compartment syndrome. At that time he also developed cerebral vascular insufficiency. His recovery course was prolonged and he was actually in a [facility] retirement for some time. Since then he has been doing fairly well, but he continues to smoke and does not take good care of himself. His blood pressure is usually out of control. He apparently had symptomatic left carotid stenosis and was brought in for stenting. REVIEW OF SYSTEMS: At the present time he is not having trouble with vision or hearing and he has had no weakness on either side, including the face, arms or legs. He denies any chest pain or headache. Past medical history, family history, and personal and social histories can all be detailed in his admitting summary. PHYSICAL EXAMINATION: Blood pressure is 138/75 with a pulse of 83, respirations of 20, and he is afebrile. In general he appeared to be well developed, well nourished, awake and alert and in no acute distress. Skin color is normal. Skin was dry. Head, ears, eyes, nose, mouth and throat were normal. The chest was clear. Cardiac exam was normal with sinus rhythm. Abdomen is soft and nontender. Extremities are normal. Neurologically he is intact. IMPRESSION: 1. Left carotid stenosis. 2. Atherosclerotic cardiovascular disease. 3. Peripheral vascular occlusive disease. 4. Previous cerebrovascular accident. 5. Chronic obstructive pulmonary disease. RECOMMENDATIONS: None at this time. He seems to be doing well. Thank you. Respectfully, Dao Mcgarry II, M.D. [place] / JOSE: [id number] /
[2021-11-03] MEDS ORDERED: LEVOTHYROXINE 100 MCG TAB PO SCH (06:30)
[2021-11-03] MEDS: CALCIUM ACETATE 667 MG TAB PO SCH (06:51)
[2021-11-03] MEDS: carvediloL 12.5 MG TAB PO SCH (06:52)
[2021-11-03] MEDS: cilostazoL 100 MG TAB PO SCH (07:44)
[2021-11-03] MEDS: traMADol 50 MG TAB PO SCH (07:44)
[2021-11-03] MEDS: SPIRONOLACTONE-HCTZ 25-25MG 1 EACH TAB PO SCH (07:46)
[2021-11-03] MEDS: AMIODARONE 100 MG TAB PO SCH (07:46)
[2021-11-03 07:50] VITALS: BP 125/93; PULSE 93; RESP 18; TEMP 97.5
--- NOTE | 2021-11-03 08:05 | P.DS ---
Providers Date of admission: 11/02/21 15:54 Attending physician: Gael Deutsch Consults: 11/02/21 10:28 Consult Physician Routine Consulting Provider: [facility] Consult Reason/Comments: Post Interventional Patient Do you want consulting provider notified?: Already Contacted Primary care physician: Dao Mcgarry [facility] Course: This is a 56-year-old gentleman who underwent yesterday successful stenting of the left internal carotid artery from left groin approach. The patient was seen this morning. He is asymptomatic. He is hemodynamically stable. The left groin is soft with mild tenderness but no discrete hematoma seen. There was some bruises seen. The patient is going to be discharged home on Plavix as well as Coumadin. I'll follow-up with the patient in a week Plan - Discharge Summary Discharge Rx Participant: No New Discharge Prescriptions: New Clopidogrel [Plavix] 75 mg PO DAILY #90 tablet Continue Aspirin [Adult Low Dose Aspirin EC] 81 mg PO DAILY Potassium Citrate [Potassium Citrate ER] 10 meq PO DAILY Calcium Acetate [PhosLo] 667 mg PO AC-BID Amiodarone [Cordarone] 100 mg PO BID traMADol HCL [Ultram] 50 mg PO BID #12 tab carvediloL 12.5 mg PO BID Warfarin [Coumadin] 10 mg PO HS Spironolactone-Hctz 25-25Mg [Aldactazide 25-25 MG] 1 each PO BID Levothyroxine Sodium 100 mcg PO DAILY Atorvastatin [Lipitor] 80 mg PO HS cilostazoL 100 mg PO BID Omeprazole 20 mg PO QAM Discharge Medication List Aspirin [Adult Low Dose Aspirin EC] 81 mg PO DAILY 09/03/18 [History] Amiodarone [Cordarone] 100 mg PO BID 01/25/19 [History] Calcium Acetate [PhosLo] 667 mg PO AC-BID 01/25/19 [History] Potassium Citrate [Potassium Citrate ER] 10 meq PO DAILY 01/25/19 [History] traMADol HCL [Ultram] 50 mg PO BID #12 tab 02/18/19 [Rx] Atorvastatin [Lipitor] 80 mg PO HS 11/01/21 [History] Levothyroxine Sodium 100 mcg PO DAILY 11/01/21 [History] Omeprazole 20 mg PO QAM 11/01/21 [History] Spironolactone-Hctz 25-25Mg [Aldactazide 25-25 MG] 1 each PO BID 11/01/21 [History] Warfarin [Coumadin] 10 mg PO HS 11/01/21 [History] carvediloL 12.5 mg PO BID 11/01/21 [History] cilostazoL 100 mg PO BID 11/01/21 [History] Clopidogrel [Plavix] 75 mg PO DAILY #90 tablet 11/03/21 [Rx] Follow up Appointment(s)/Referral(s): Gael Deutsch MD [STAFF PHYSICIAN] - 1 Week
[2021-11-03] MEDS ORDERED: ASPIRIN 81 MG PO SCH (09:00)
[2021-11-03] MEDS ORDERED: PANTOPRAZOLE 40 MG TABLET PO SCH (09:00)
[2021-11-03] MEDS ORDERED: POTASSIUM CITRATE 10 MEQ TABLET.ER PO SCH (09:00)
[2021-11-03 11:09] VITALS: BMI 32.7
--- NOTE | 2021-11-04 09:30 | P.PN ---
Subjective Progress Note Date: 11/03/21 This is a 56-year-old male who follows with Dr. Mcgarry in the outpatient setting admitted under cardiology services Dr. Deutsch and is status post left carotid stenosis with stenting and was being closely monitored. Patient was maintained in the ICU on continue telemetry and has been cleared for discharge by Dr. Deutsch today. Patient's vital signs are stable and denies any chest pain, shortness of breath, or palpitations. Patient is afebrile. Patient is anxious to go home. Review of systems: Constitutional: No reports of fatigue, fever, or chills Cardiovascular: No reports of chest pain or palpitations Respiratory: No reports of shortness of breath or cough GI: reports of nausea, no reports of of vomiting, no reports of diarrhea : No reports of dysuria or retention Neurovascular: reports of generalized weakness All medications have been reviewed Active Medications PHYSICAL EXAMINATION: GENERAL: The patient is alert and oriented x4, Well developed, well nourished. HEENT: Pupils are round and equally reacting to light. EOMI. no scleral icterus. No conjunctival pallor. Normocephalic, atraumatic. No pharyngeal erythema. No thyromegaly. CARDIOVASCULAR: S1 and S2 muffled PULMONARY: diminished breath sounds bilaterally with no wheezing or rhonchi noted. ABDOMEN: soft. Nontender on exam. obese. non-distended, normoactive bowel sounds. No palpable organomegaly. MUSCULOSKELETAL: No joint swelling or deformity. EXTREMITIES: No cyanosis, clubbing, or pedal edema. NEUROLOGICAL: Gross neurological examination did not reveal any focal deficits. SKIN: No rashes. Assessment: Left carotid stenosis Atherosclerotic cardiovascular disease Peripheral vascular occlusive disease previous cerebrovascular accident Chronic obstructive pulmonary disease GI prophylaxis DVT prophylaxis Full code Plan: Recommend to continue with current medications and management per cardiology services. Patient is status post left internal carotid artery stenting with Dr. Deutsch and is cleared for discharge today. Patient's WBC mildly elevated at 16 and creatinine is 1.39 and recommend repeat labs and close outpatient follow-up with primary care provider Dr. Mcgarry. Prescription was provided for repeat labs in the outpatient setting. Recommend resuming home medications and fo llowing up as scheduled. Patient is being discharged by cardiology today. We will continue to follow during hospitalization. Thank you for this consultation. The impression and plan of care has been dictated by Lucille Mane, nurse practitioner as directed. MD Jenn I have performed a history and examination and MDM of this patient, discussed the same with the dictator, and agree with the dictator's assessment and plan as written ,documented as a scribe. Based on total visit time, I have performed more than 50% of the visit. Any additional findings or plans will be noted. Objective - Vital Signs Vital signs: Vital Signs Temp 97.5 F L 11/03/21 07:49 Pulse 93 11/03/21 07:49 Resp 18 11/03/21 07:49 BP 125/93 11/03/21 07:49 Pulse Ox 96 11/03/21 04:00 FiO2 Intake & Output 11/02/21 11/03/21 11/03/21 18:59 06:59 18:59 Intake Total 525 2220 450 Output Total 1000 960 250 Balance -475 1260 200 Weight 94.7 kg Intake: IV 525 600 0.9 75 600 Oral 1620 450 Output: Urine 1000 960 250 Uretheral ([place]) 1000 Other: Voiding Method Indwelling Catheter Indwelling Catheter - Labs CBC & Chem 7: 11/02/21 16:42 11/03/21 08:32 Labs: Abnormal Lab Results - Last 24 Hours (Table) 11/02/21 11/02/21 11/02/21 Range/Units 15:54 16:42 16:42 WBC 16.3 H (3.8-10.6) k/uL Neutrophils # 13.9 H (1.3-7.7) k/uL Monocytes # 1.1 H (0-1.0) k/uL Sodium 136 L (137-145) mmol/L Chloride 109 H (98-107) mmol/L Carbon Dioxide 20 L (22-30) mmol/L Creatinine 1.39 H (0.66-1.25) mg/dL Glucose 117 H (74-99) mg/dL POC Glucose (mg/dL) 123 H (70-110) mg/dL 11/03/21 Range/Units 08:32 WBC (3.8-10.6) k/uL Neutrophils # (1.3-7.7) k/uL Monocytes # (0-1.0) k/uL Sodium (137-145) mmol/L Chloride (98-107) mmol/L Carbon Dioxide (22-30) mmol/L Creatinine 1.33 H (0.66-1.25) mg/dL Glucose (74-99) mg/dL POC Glucose (mg/dL) (70-110) mg/dL
== END 2021-11-03 12:03 | disposition home or self-care (01) | DRG 36 ==
LOC: 2ORMAIN 06:09 → UNDOADMIN 06:09 → 2ORMAIN 12:31 → 3SCARD 12:31 → 2SICU 14:50 → 3SCARD 15:54 → 2SICU 15:57
PROVIDERS: ADMIT Internal Medicine Interventional Cardiology; ATTEND Internal Medicine Interventional Cardiology
PROC: B31R1ZZ Fluoroscopy of Intracranial Arteries using Low Osmolar Contrast (ICD-10-PCS; principal; 2021-11-02 07:30)
PROC: B3141ZZ Fluoroscopy of Left Common Carotid Artery using Low Osmolar Contrast (ICD-10-PCS; principal; 2021-11-02 07:30)
PROC: 037L3DZ Dilation of Left Internal Carotid Artery with Intraluminal Device, Percutaneous Approach (ICD-10-PCS; principal; 2021-11-02 07:30)
PROC: X2AJ336 Cerebral Embolic Filtration, Extracorporeal Flow Reversal Circuit from Left Common Carotid Artery, Percutaneous Approach, New Technology Group 6 (ICD-10-PCS; principal; 2021-11-02 07:30)
PROC: B3171ZZ Fluoroscopy of Left Internal Carotid Artery using Low Osmolar Contrast (ICD-10-PCS; principal; 2021-11-02 07:30)
PROC: B4101ZZ Fluoroscopy of Abdominal Aorta using Low Osmolar Contrast (ICD-10-PCS; principal; 2021-11-02 07:30)
DX: I65.22 Occlusion and stenosis of left carotid artery (principal); E03.9 Hypothyroidism, unspecified; I48.0 Paroxysmal atrial fibrillation; I73.9 Peripheral vascular disease, unspecified; J44.9 Chronic obstructive pulmonary disease, unspecified; Z20.822 Contact with and (suspected) exposure to COVID-19; I10 Essential (primary) hypertension; I25.10 Atherosclerotic heart disease of native coronary artery without angina pectoris; E78.5 Hyperlipidemia, unspecified; F17.210 Nicotine dependence, cigarettes, uncomplicated; Z71.6 Tobacco abuse counseling; Z86.73 Personal history of transient ischemic attack (TIA), and cerebral infarction without residual deficits; Z95.828 Presence of other vascular implants and grafts; Z95.1 Presence of aortocoronary bypass graft
CPT/HCPCS: 37215; 80053; 82565; 84443; 85025; 85610; 86850; 86900; 86901; 87635

== ENCOUNTER → 2022-03-15 | Outpatient (CLI) | payer MEDICARE, OTHER ==
--- NOTE | 2022-03-15 11:51 | US ---
EXAMINATION TYPE: US kidneys/renal and bladder DATE OF EXAM: 03/15/2022 COMPARISON: Renal ultrasound 2019. CTA aorta 2019. CLINICAL HISTORY: N18.31 CHRONIC KIDNEY DISEASE, STAGE 3A. CKD 3 EXAM MEASUREMENTS: Right Kidney: 11.1 x 5.6 x 5.4 cm Left Kidney: 7.0 x 2.7 x 2.7 cm Right Kidney: No hydronephrosis or masses seen Left Kidney: Atrophic cortical thinning Bladder: anechoic Bilateral Jets seen: No Diminished size to left kidney with new volume loss. The urinary bladder is anechoic. IMPRESSION: Asymmetric atrophy to the left kidney. 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
== END | disposition home or self-care (01) ==
LOC: RADUSWWP 11:01
PROVIDERS: ATTEND Internal Medicine Nephrology
DX: N18.31 Chronic kidney disease, stage 3a (principal); N26.1 Atrophy of kidney (terminal)
CPT/HCPCS: 76770

== ENCOUNTER 2022-04-19 05:43 | Day surgery (SDC) | payer MEDICARE, OTHER ==
[2022-04-19] MEDS ORDERED: ASPIRIN 325 MG TAB PO PRN (06:02)
[2022-04-19] MEDS ORDERED: ALPRAZolam 0.25 MG TAB PO PRN (06:02)
[2022-04-19] MEDS ORDERED: SODIUM CHLORIDE 0.9% 1,000 ML in EMPTY BAG 1 BAG IV ONE (06:02)
[2022-04-19] MEDS ORDERED: HEPARIN SODIUM,PORCINE 10,000 UNIT in SODIUM CHLORIDE 0.9% 1,000 ML IRRIGATION PRN (06:02)
[2022-04-19] MEDS ORDERED: HEPARIN SODIUM,PORCINE 2,500 UNIT in SODIUM CHLORIDE 0.9% 250 ML IRRIGATION PRN (06:02)
[2022-04-19] MEDS ORDERED: ZOLPIDEM 5 MG TAB PO PRN (06:02)
[2022-04-19] MEDS ORDERED: ALPRAZolam 0.5 MG TAB PO PRN (06:02)
[2022-04-19 06:55] VITALS: TEMP 97.4
[2022-04-19 06:57] LABS: INR 0.9 (<1.2); Prothrombin Time 10.1 sec (9.0-12.0)
[2022-04-19] MEDS ORDERED: MIDAZOLAM 2 MG/2 ML VIAL IV ONE (07:48)
[2022-04-19] MEDS ORDERED: LIDOCAINE 1% INJ 10MG/ML (30 ML VIAL-PF) SQ ONE (07:51)
[2022-04-19] MEDS ORDERED: fentaNYL (PF) 50 MCG/ML 2 ML AMP IV ONE (07:58)
[2022-04-19] MEDS ORDERED: IOPAMIDOL-250 100ML BTL INTRAARTER ONE (08:20)
[2022-04-19] MEDS ORDERED: RX INFO: IV CONTRAST WAS GIVEN 1 EACH MISC MISCELLANE PRN (08:20)
[2022-04-19] MEDS ORDERED: SODIUM CHLORIDE 0.9% 1,000 ML IV SCH (08:30)
--- NOTE | 2022-04-19 08:33 | IR ---
EXAMINATION TYPE: IR angio abdominal w runoff DATE OF EXAM: 04/19/2022 COMPARISON: NONE HISTORY: Fluoroscopy time. Fluoroscopy was provided to the referring clinician.
--- NOTE | 2022-04-19 10:36 | P.PCN ---
Date of Procedure: 04/19/22 Operative Findings: AN ABDOMINAL AORTOGRAM AND BILATERAL LOWER EXTREMITIES RUNOFF PERFORMING PHYSICIAN: Gael Deutsch MD PROCEDURE PERFORMED: 1. An abdominal aortogram 2. Bilateral lower extremities runoff INDICATION: Bilateral lower extremity is intermittent claudication in this 56-year-old gentleman who is known to have lower extremities PAD with prior surgery with aortobifem in the past. COMPLICATION: None LEVEL OF SEDATION: Moderate was sedation length of moderate to sedation length of 20 minutes APPROACH: Right common femoral artery PROCEDURE DESCRIPTION: After obtaining informed consent and explaining the procedure benefits, risks, and complications, the patient was brought to the cardiac bed laborer. The left groin was prepped and draped in sterile fashion. The left common femoral artery was cannulated using micropuncture technique, under ultrasound guidance. A micropuncture wire was advanced, and the micropuncture sheath was advanced over the wire, then the micropuncture sheath was exchanged over an 0.35 wire into a 5 -Malawian sheath dilator assembly then the wire and dilator were removed and sheath was flushed. We did an abdominal aortogram and bilateral lower extremities runoff using 5- Malawian pigtail catheter using a power injection. The catheter was initially placed at the level of the renal arteries, and it was pulled into above the bifurcation of the aorta into right and left common iliac arteries. The procedure was completed and there was no complications. SELECTIVE PERIPHERAL ANGIOGRAM: The abdominal aorta: Calcified was mild disease only. The common iliac arteries: Are occluded The external iliac arteries: Are occluded The internal iliac arteries: Are occluded The common femoral arteries: The right common femoral arteries occluded. The left common femoral artery appeared to be patent Superficial femoral arteries: The right SFA is occluded. The left SFA has mild disease only Popliteal arteries: The right popliteal is occluded. The left popliteal has mild disease only Below the knees: The arteries below the knee are poorly visualized CONCLUSION: Occluded bilateral iliac. Patent aorta to left femoral bypass. The bypass on the right is occluded Occluded right common femoral artery. Occluded right SFA and popliteal POSTPROCEDURE MANAGEMENT: The patient is going to be discharged home. Discussed the revascularization option with
[2022-04-19 11:40] VITALS: PULSE 60
[2022-04-19 11:41] VITALS: RESP 16
[2022-04-19 14:12] VITALS: BP 137/65
== END 2022-04-19 14:30 | disposition home or self-care (01) ==
LOC: CATHCVL 05:43
PROVIDERS: ATTEND Internal Medicine Interventional Cardiology
DX: I70.213 Atherosclerosis of native arteries of extremities with intermittent claudication, bilateral legs (principal); I74.5 Embolism and thrombosis of iliac artery; I70.0 Atherosclerosis of aorta; I10 Essential (primary) hypertension; E78.5 Hyperlipidemia, unspecified; F17.210 Nicotine dependence, cigarettes, uncomplicated; I65.23 Occlusion and stenosis of bilateral carotid arteries; I48.0 Paroxysmal atrial fibrillation; I25.10 Atherosclerotic heart disease of native coronary artery without angina pectoris; Z82.49 Family history of ischemic heart disease and other diseases of the circulatory system; Z79.1 Long term (current) use of non-steroidal anti-inflammatories (NSAID); Z79.01 Long term (current) use of anticoagulants; Z79.02 Long term (current) use of antithrombotics/antiplatelets; Z79.82 Long term (current) use of aspirin; Z79.891 Long term (current) use of opiate analgesic; Z79.899 Other long term (current) drug therapy
CPT/HCPCS: 36245; 36200; 75625; 75716; 76937; 85610; C1769 ×4; C1894 ×2; J2250; J2001; J3010; Q9966

== ENCOUNTER → 2023-07-20 | Outpatient (CLI) | payer MEDICARE, OTHER ==
[2023-07-20 13:58] LABS: African American GFR (CKD) 54 (>60 ml/min/1.73 sqM); Blood Urea Nitrogen 21 mg/dL (9-20); Non-African American GFR(CKD) 47 (>60 ml/min/1.73 sqM)
--- NOTE | 2023-07-20 14:49 | CT ---
Exam: CT Angiography of the Chest. Date: 07/20/2023. Comparison: 10/13/2018. History: Follow-up for aortic aneurysm. Technique: CT examination of the chest was performed following the intravenous administration of . CT dose lowering techniques were used, to include: automated exposure control, adjustment for patient s ize, and/or use of iterative reconstruction. FINDINGS: Mediastinum and Diana: There is no axillary, mediastinal or hilar lymphadenopathy. Pleural and Pericardial spaces: There are no pleural or pericardial effusions. Upper Abdomen: Large ventral hernia is partially included containing fat and transverse colon the upp er abdomen. Marked atrophy of the left kidney is seen. Cardiovascular: The thoracic aorta measures up to 3.6 cm in diameter along its ascending portion. The ir is mild vascular calcification and plaque otherwise noted. The aorta in the upper abdomen shows a partially visualized dissection with some thrombus at this flap was likely present on the previous ex amination as well as portions of the thrombus. This is incompletely evaluated and would be better giovana luated with a abdomen and pelvis study. Pulmonary Artery: There are no filling defects in the pulmonary arteries. Lung Parenchyma and Airways: There is mild to moderate upper lobe predominant centrilobular and xochitl eptal emphysema. No suspicious pulmonary nodules are otherwise seen. Bones: No fracture or aggressive osseous lesion. IMPRESSION: 1. Ascending thoracic aorta measures up to 3.6 cm. 2. No definite evidence of pulmonary. 3. No evidence of pneumonia, pleural or pericardial effusions. 4. Emphysema. 5. The aorta in the upper abdomen shows a partially visualized dissection with some thrombus at this flap was likely present on the previous examination as well as portions of the thrombus. This is inco mpletely evaluated and would be better evaluated with a abdomen and pelvis study. 6. The prior study also showed aortic bypass which is not included on the evaluation. 7. Large ventral hernia.
== END | disposition home or self-care (01) ==
LOC: RADCTMAIN 12:44
PROVIDERS: ATTEND Internal Medicine Interventional Cardiology
DX: I71.20 Thoracic aortic aneurysm, without rupture, unspecified (principal); K43.9 Ventral hernia without obstruction or gangrene; J43.2 Centrilobular emphysema
CPT/HCPCS: 82565; 84520; 71275; 36415; Q9967

== ENCOUNTER 2023-10-02 07:08 | Inpatient (IN) | payer MEDICARE, OTHER ==
--- NOTE | 2023-10-02 07:22 | ED ---
Chest Pain HPI - General Chief Complaint: Chest Pain Stated Complaint: Chest pain Time Seen by Provider: 10/02/23 07:16 Source: patient, EMS, RN notes reviewed Mode of arrival: EMS Limitations: no limitations - History of Present Illness Initial Comments: 58-year-old male presents emergency department via EMS chief complaint of chest pain. Patient states he has been having some discomfort since yesterday's to have worsened. He states been taking Pepto-Bismol for the discomfort. He was given aspirin, nitro by EMS in which pain has improved some he still has some residual pain patient's had 3 prior stents, quadruple bypass. Patient states he has mild shortness of breath, sweating episode last night. He does complain of left leg pain but this is chronic from his vein grafting per patient. Patient does have multiple abdominal hernias he denies any recent URI symptoms. Patient states he has left-sided chest pain left arm pain. Patient has smoking history. - Related Data Home Medications Medication Instructions Recorded Confirmed Aspirin [Adult Low Dose Aspirin EC] 81 mg PO DAILY 09/03/18 04/19/22 Amiodarone [Cordarone] 100 mg PO DAILY 01/25/19 04/19/22 Calcium Acetate [PhosLo] 667 mg PO AC-BID 01/25/19 04/19/22 Potassium Citrate [Potassium 10 meq PO DAILY 01/25/19 04/19/22 Citrate ER] Atorvastatin [Lipitor] 80 mg PO HS 11/01/21 04/19/22 Levothyroxine Sodium 100 mcg PO DAILY 11/01/21 04/19/22 Omeprazole 20 mg PO QAM 11/01/21 04/19/22 Spironolactone-Hctz 25-25Mg 1 each PO BID 11/01/21 04/19/22 [Aldactazide 25-25 MG] Warfarin [Coumadin] 10 mg PO HS 11/01/21 04/17/22 carvediloL 12.5 mg PO BID 11/01/21 04/19/22 cilostazoL 100 mg PO BID 11/01/21 04/19/22 Gabapentin [Neurontin] 300 mg PO BID 04/17/22 04/19/22 Magnesium Oxide [Mag-Ox] 400 mg PO DAILY 04/17/22 04/19/22 rOPINIRole HCL [Requip] 0.25 mg PO HS 04/17/22 04/19/22 Previous Rx's Medication Instructions Recorded traMADol HCL [Ultram] 50 mg PO BID #12 tab 02/18/19 Clopidogrel [Plavix] 75 mg PO DAILY #90 tablet 11/03/21 Allergies Allergy/AdvReac Type Severity Reaction Status Date / Time Penicillins Allergy Severe Swelling Verified 10/02/23 07:15 ceftriaxone Allergy Unknown Verified 10/02/23 07:15 Review of Systems ROS Statement: Those systems with pertinent positive or pertinent negative responses have been documented in the HPI. ROS Other: All systems not noted in ROS Statement are negative. EKG Findings - EKG Comments: EKG Findings:: EKG performed at 7: 12 sinus rhythm rate of 68 LA 173 QRS 98 QT/QTc 398/415 mild depression V2 V3. EKG repeat 7: 36 sinus rhythm rate 63 LA 171 QRS 100 QT/QTc 411/[address] depression - EKG Results: EKG: interpreted by JUD Past Medical History Past Medical History: Atrial Fibrillation, COPD, CVA/TIA, GERD/Reflux, Hypertension, Memory Impairment, Osteoarthritis (OA), Renal Disease, Thyroid Disorder, Vascular Disorder Additional Past Medical History / Comment(s): "no blood flow to legs", arthritis in lower back,. sees Dr Gutierrez for kidneys (complication of aorto/femoral bypass) ( sister states after being put in coma due to kidney issues,pt was home and was drinking with all his meds and had a stroke- residual memory issues) Hernias in abdomen- can reduce, stage 2 kidney disease-stable per sister History of Any Multi-Drug Resistant Organisms: None Reported Past Surgical History: Unable to Obtain Additional Past Surgical History / Comment(s): "aortic bifemoral bypass early 2018" , left carotid stent Past Anesthesia/Blood Transfusion Reactions: No Reported Reaction Past Psychological History: Anxiety Smoking Status: Current every day smoker - Past Family History Sister(s) Family Medical History: Cancer Additional Family Medical History / Comment(s): uterine. other sister breast cancer Father Family Medical History: Unable to Obtain Mother Family Medical History: No Reported History General Exam Limitations: no limitations General appearance: alert, in no apparent distress Head exam: Present: atraumatic, normocephalic, normal inspection Eye exam: Present: normal appearance, PERRL, EOMI. Absent: scleral icterus, conjunctival injection, periorbital swelling ENT exam: Present: normal exam, normal oropharynx, mucous membranes moist Neck exam: Present: normal inspection, full ROM. Absent: tenderness, meningismus, lymphadenopathy Respiratory exam: Present: normal lung sounds bilaterally, chest wall tenderness. Absent: respiratory distress, wheezes, rales, rhonchi, stridor Cardiovascular Exam: Present: regular rate, normal rhythm, normal heart sounds. Absent: systolic murmur, diastolic murmur, rubs, gallop, clicks GI/Abdominal exam: Present: soft, distended, normal bowel sounds, hernia. Absent: tenderness, guarding, rebound, rigid Extremities exam: Present: other (Lower extremity pulses equal bilaterally, there is old surgical scar to left calf) Back exam: Present: full ROM. Absent: tenderness Neurological exam: Present: alert, oriented X3, CN II-XII intact Course Vital Signs 10/02/23 10/02/23 10/02/23 07:10 07:16 08:28 Temperature 98.4 F Pulse Rate 66 56 L Pulse Rate [ 81 Catcher Plug ] Respiratory 22 20 Rate Blood Pressure 101/68 99/50 O2 Sat by Pulse 95 94 L Oximetry - Reevaluation(s) Reevaluation #1: 10/02/23 07:29 cardiology was paged to be contacted Chest Pain MDM - MDM Was pt. sent in by a medical professional or institution ([facility], SCHOOL LIBRARIAN, urgent care, hospital, or penitentiary...) When possible be specific @ -No Did you speak to anyone other than the patient for history (EMS, parent, family, police, friend...)? What history was obtained from this source @ -No Did you review nursing and triage notes (agree or disagree)? Why? @ -I reviewed and agree with nursing and triage notes Were old charts reviewed (outside hosp., previous admission, EMS record, old EKG, old radiological studies, urgent care reports/EKG's, penitentiary records)? Report findings @ -Reviewed prior EKG, CBC, cardiology notes Differential Diagnosis (chest pain, altered mental status, abdominal pain women, abdominal pain men, vaginal bleeding, weakness, fever, dyspnea, syncope, headache, dizziness, GI bleed, back pain, seizure, CVA, palpatations, mental health, musculoskeletal)? @ -Differential Chest Pain: Stable Angina, Unstable Angina, STEMI, NSTEMI Aortic Dissection, Pneumothorax, Musculoskeletal, Esophageal Spasm GERD, Cholecystitis, Pancreatitis, Zoster, this is not meant to be an all-inclusive list. EKG interpreted by me (3pts min.). @ -As above X-rays interpreted by me (1pt min.). @ -Chest X shows chronic changes no acute process CT interpreted by me (1pt min.). @ -None done U/S interpreted by me (1pt. min.). @ -None done What testing was considered but not performed or refused? (CT, X-rays, U/S, labs)? Why? @ -None What meds were considered but not given or refused? Why? @ -None Did you discuss the management of the patient with other professionals (professionals i.e. , PA, SCHOOL LIBRARIAN, lab, RT, psych nurse, administrator social welfare, clinical care manager, teacher, corporate banking officer, onsite case manager)? Give summary @ -Did discuss the case with cardiology Dr. Chawla and Dr. Mcgarry for admission Was smoking cessation discussed for >3mins.? @ -No Was critical care preformed (if so, how long)? @ -35 minutes Were there social determinants of health that impacted care today? How? (Homelessness, low income, unemployed, alcoholism, drug addiction, transportation, low edu. Level, literacy, decrease access to med. care, [place] [facility], rehab)? @ -No Was there de-escalation of care discussed even if they declined (Discuss DNR or withdrawal of care, Hospice)? DNR status @ -No What co-morbidities impacted this encounter? (DM, HTN, Smoking, COPD, CAD, Cancer, CVA, ARF, Chemo, Hep., AIDS, mental health diagnosis, sleep apnea, morbid obesity)? @ -CAD, CABG, smoking, A-fib Was patient admitted / discharged? Hospital course, mention meds given and route, prescriptions, significant lab abnormalities, going to OR and other pertinent info. @ -Admitted patient presented to emergency department for chest pain initial EKG shows mild ST depressions which was improved on the second EKG cardiology was contacted upon initial EKG Dr. Chawla did come evaluate the patient and patient will have cardiac cath. Patient's initial troponin is 0.256, patient was given aspirin, nitro, Nitropaste Lipitor and started on heparin. Undiagnosed new problem with uncertain prognosis? @ -No Drug Therapy requiring intensive monitoring for toxicity (Heparin, Nitro, Insulin, Cardizem)? @ -Heparin Were any procedures done? @ -No Diagnosis/symptom? @ -NSTEMI Acute, or Chronic, or Acute on Chronic? @ -Acute Uncomplicated (without systemic symptoms) or Complicated (systemic symptoms)? @ -Complicated Side effects of treatment? @ -No Exacerbation, Progression, or Severe Exacerbation? @ -No Poses a threat to life or bodily function? How? (Chest pain, [place], [place], pneumonia, PE, COPD, DKA, ARF, appy, cholecystitis, CVA, Diverticulitis, Homicidal, Suicidal, threat to staff... and all critical care pts) @ -Yes ACS, Critical Care Time Critical Care Time: Yes Total Critical Care Time: 35 Disposition Clinical Impression: NSTEMI (non-ST elevated myocardial infarction) Disposition: ADMITTED IP TO THIS [facility] Condition: Serious Time of Disposition: 08:24
[2023-10-02] MEDS: NITROGLYCERIN OINT 1 INCH/GM PACKET TOPICAL STA (07:24)
[2023-10-02 07:38] LABS: Basophils % (A) 0 %; Eosinophils # (A) 0.1 k/uL (0-0.7); Eosinophils % (A) 1 %; HCT 42.8 % (39.0-53.0); HGB 14.3 gm/dL (13.0-17.5); Lymphocytes # (A) 0.9 k/uL (1.0-4.8); Lymphocytes % (A) 7 %; MCH 28.5 pg (25.0-35.0); MCHC 33.3 g/dL (31.0-37.0); MCV 85.6 fL (80.0-100.0); Mean Platelet Volume 8.5; Monocytes # (A) 0.7 k/uL (0-1.0); Monocytes % (A) 5 %; Neutrophils # (A) 10.6 k/uL (1.3-7.7); Neutrophils % (A) 85 %; Platelet Count 252 k/uL (150-450); WBC 12.6 k/uL (3.8-10.6)
--- NOTE | 2023-10-02 07:41 | XR ---
EXAMINATION TYPE: XR chest 2V DATE OF EXAM: 10/02/2023 COMPARISON: 01/25/2019 TECHNIQUE: PA and lateral views submitted. HISTORY: Chest pain FINDINGS: The lungs are clear and there is no pneumothorax, pleural effusion, or focal pneumonia. Underlying e mphysematous changes. Heart size normal and no overt failure. Osseous structures demonstrate hypertro phic and degenerative changes of the spine. IMPRESSION: 1. No acute process.
[2023-10-02 07:47] LABS: Partial Thromboplastin Time 23.3 sec (22.0-30.0); Prothrombin Time 10.7 sec (10.0-12.5)
[2023-10-02] MEDS: MORPHINE SULFATE 4 MG/ML SYRINGE IVP STA (07:47)
[2023-10-02 07:50] LABS: ALT 26 U/L (4-49); AST 26 U/L (17-59); African American GFR (CKD) 49 (>60 ml/min/1.73 sqM); Albumin 3.7 g/dL (3.5-5.0); Alkaline Phosphatase 97 U/L (38-126); Anion Gap 8 mmol/L; Blood Urea Nitrogen 17 mg/dL (9-20); Calcium 9.1 mg/dL (8.4-10.2); Carbon Dioxide 25 mmol/L (22-30); Chloride 104 mmol/L (98-107); Glucose 119 mg/dL (74-99); Non-African American GFR(CKD) 43 (>60 ml/min/1.73 sqM); Potassium 4.5 mmol/L (3.5-5.1); Sodium 137 mmol/L (137-145); Total Bilirubin 0.5 mg/dL (0.2-1.3); Total Protein 6.6 g/dL (6.3-8.2)
[2023-10-02 07:58] LABS: NT-Pro-B-Type Natriuretic Pept 189 pg/mL
[2023-10-02] MEDS ORDERED: NITROGLYCERIN SL TABS 0.4 MG TAB SUBLINGUAL PRN ×2 (08:17→14:14)
[2023-10-02] MEDS ORDERED: HEPARIN SODIUM 1,000 UN/ML (10ML VL) IV PRN (08:29)
[2023-10-02] MEDS: SODIUM CHLORIDE 0.9% 1,000 ML IV SCH (08:39)
[2023-10-02] MEDS: HEPARIN SODIUM 1,000 UN/ML (10ML VL) IV ONE (08:41)
[2023-10-02] MEDS: HEPARIN SOD,PORK IN 0.45% NACL 25,000 UNIT in 0.45% NACL 1 250ML.BAG IV SCH (08:43)
[2023-10-02] MEDS: ATORVASTATIN 80 MG TAB PO STA ×2 (08:45→09:04)
[2023-10-02] MEDS: SODIUM CHLORIDE 0.9% 500 ML 500 ML IV ONE (08:46)
[2023-10-02] MEDS ORDERED: ALPRAZolam 0.5 MG TAB PO PRN (09:00)
[2023-10-02] MEDS ORDERED: ALPRAZolam 0.25 MG TAB PO PRN (09:00)
[2023-10-02 11:38] LABS: African American GFR (CKD) 47 (>60 ml/min/1.73 sqM); Anion Gap 8 mmol/L; Blood Urea Nitrogen 18 mg/dL (9-20); Calcium 9.4 mg/dL (8.4-10.2); Carbon Dioxide 19 mmol/L (22-30); Chloride 109 mmol/L (98-107); Glucose 111 mg/dL (74-99); Non-African American GFR(CKD) 41 (>60 ml/min/1.73 sqM); Potassium 5.1 mmol/L (3.5-5.1); Sodium 136 mmol/L (137-145)
[2023-10-02] MEDS ORDERED: fentaNYL (PF) 50 MCG/ML 2 ML AMP ONE (13:11)
[2023-10-02] MEDS ORDERED: VERAPAMIL 2.5 MG/ML 2 ML AMP ONE (13:11)
[2023-10-02] MEDS ORDERED: LIDOCAINE 1% INJ 10MG/ML (20 ML MDV) ONE (13:11)
[2023-10-02] MEDS: LIDOCAINE 1% INJ 10MG/ML (30 ML VIAL-PF) SQ ONE (13:21)
[2023-10-02] MEDS: fentaNYL (PF) 50 MCG/1 ML VIAL IVP ONE ×2 (13:21→13:28)
[2023-10-02] MEDS: MIDAZOLAM 2 MG/2 ML VIAL IVP ONE ×3 (13:21→13:59)
[2023-10-02] MEDS ORDERED: CLOPIDOGREL 75 MG TAB ONE (13:44)
[2023-10-02] MEDS: CLOPIDOGREL 75 MG TAB PO ONE (13:45)
[2023-10-02] MEDS: HEPARIN SODIUM 1,000 UN/ML (10ML VL) IVP ONE ×2 (13:48→14:15)
[2023-10-02] MEDS: NITROGLYCERIN 1000MCG/10ML SYRINGE INTRACORON ONE (14:02)
[2023-10-02] MEDS: SODIUM CHLORIDE 0.9% 1,000 ML IV ONE (14:10)
[2023-10-02] MEDS: IOPAMIDOL-370 100ML BTL INTRATHECA ONE (14:10)
[2023-10-02] MEDS ORDERED: ATROPINE SULFATE 0.1 MG/ML 10ML SYRINGE IV PRN (14:14)
[2023-10-02] MEDS ORDERED: ZOLPIDEM 5 MG TAB PO PRN (14:14)
[2023-10-02] MEDS ORDERED: RX INFO: IV CONTRAST WAS GIVEN 1 EACH MISC MISCELLANE PRN (14:14)
[2023-10-02] MEDS ORDERED: MAG HYDROX/AL HYDROX/SIMETH 30 ML CUP PO PRN (14:14)
--- NOTE | 2023-10-02 14:19 | P.PCN ---
Date of Procedure: 10/02/23 Operative Findings: CARDIAC CATHETERIZATION AND PERCUTANEOUS CORONARY INTERVENTION PERFORMING PHYSICIAN: Gael Deutsch MD, VI PROCEDURE PERFORMED: 1. Selective right and left coronary angiogram 2. Left heart catheterization 3. Successful stenting of proximal LCx using 4.0 x 28 mm Xience CARLA with an excellent angiographic results 4. Adjunctive use of intravascular imaging 5. Ultrasound-guided access of the left common femoral artery INDICATION: Acute non-ST elevation myocardial infarction COMPLICATION: None APPROACH: Left common femoral artery LEVEL OF SEDATION: Moderate with the sedation time off 42 minutes PROCEDURE DESCRIPTION: After obtaining informed consent the patient was brought to the cardiac Insulation Mechanic. Attempting accessing the right radial artery was unsuccessful and the patient did not have any pulse in the left radial artery. He has no pulse in the right common femoral artery as well. At that point the left common femoral artery was cannulated using micropuncture technique under ultrasound guidance the micropuncture wire passed easily then I placed a 6 Romansh 11 cm sheath at the left common femoral artery. Selective right and left coronary angiogram performed using JR4 and JL 4 catheters and left heart catheterization was performed using 6 Romansh pigtail catheter. After that I did intervene on the left circumflex coronary artery. After that I did start anticoagulation using heparin with continuous ACT monitoring. Subsequently I did engage the left main using CLS 3.5 guiding catheter. I did wired the left circumflex using a run-through wire. I did intravascular ultrasound which showed a soft plaque with a diameter around 4 mm. Predilatation was performed using 3.5 mm noncompliant balloon before I deployed 4.0 x 28 mm Xience CARLA where the stent was positioned under fluoroscopy guidance and deployed under 12 yordan and subsequently IVUS was performed and postdilatation of the mid segment of the stent was performed using 4 mm noncompliant balloon with final angiogram showing excellent angiographic results and the procedure was completed with no complication SELECTIVE CORONARY ANGIOGRAM: The right coronary artery: Large-caliber vessel with mild disease only Left main: Is angiographically normal The left circumflex: Large-caliber vessel and has a critical disease involving the proximal portion appears to be in the range of 99.9% with EDWIN II flow in the LCx The left anterior descending artery: Large-caliber vessel with mild to moderate disease with no high-grade stenosis was identified HEMODYNAMICS: LVEDP was 14 mmHg with no significant gradient across aortic valve CONCLUSION: Critical disease involving the proximal left circumflex. I performed successful PCI of the proximal LCx as described above POSTPROCEDURE MANAGEMENT: 1. Dual antiplatelet therapy using aspirin and Plavix for 12 month 2. Aggressive cholesterol control 3. Follow-up with the patient
[2023-10-02] MEDS: SODIUM CHLORIDE 0.9% 1,000 ML in EMPTY BAG 1 BAG IV SCH (15:16)
[2023-10-02 16:32] LABS: Glucose,Whole Blood 87 mg/dL (70-110)
--- NOTE | 2023-10-02 18:36 | P.CRDCN ---
History of Present Illness History of present illness: This is Dr. Chawla dictating an H/P on this patient The patient was interviewed and examined IMPRESSION / ASSESSMENT: Acute coronary syndrome with abnormal ST segments inferior posterior laterally Ongoing chest discomfort since 4 PM last night Past history of carotid stenting PLAN: Coronary angiography, will discuss with Dr. Deutsch IV fluids 100 cc an hour normal saline Atorvastatin 80 mg p.o. daily Aspirin IV heparin Abstinence from nicotine products HPI Patient presenting with chest discomfort and inability to belch since 4 PM yesterday. The discomfort has been constant. He has some nausea and sweating and discomfort in the left shoulder and left arm There was some relief with nitroglycerin when he came to the ER but he still continues to have pain His twelve-lead EKG shows ST segment abnormalities in V1 V2 V3 consistent with a posterior ischemia. This extends into lead I and aVL with ST depression When the EMS brought him in he had ST segment abnormalities in the inferior leads to and the EKG changes are more prominent He is a patient of Dr. Larson and he underwent left carotid stenting ROS: No fever chills or rigors, no cough, phlegm or expectoration, no nausea, vomiting or diarrhea, no hematuria, dysuria, no musculoskeletal complaints, no strokes or seizures, no skin lesions. EXAMINATION: Normal heart sounds no murmurs no gallop no rub Clear lungs REVIEW OF LABS, ECG & MEDICAL DATA Troponin Creatinine 1.7 Past Medical History Past Medical History: Atrial Fibrillation, COPD, CVA/TIA, GERD/Reflux, Hypertension, Memory Impairment, Osteoarthritis (OA), Renal Disease, Thyroid Disorder, Vascular Disorder Additional Past Medical History / Comment(s): "no blood flow to legs", arthritis in lower back,. sees Dr Gutierrez for kidneys (complication of aorto/femoral bypa ss) ( sister states after being put in coma due to kidney issues,pt was home and was drinking with all his meds and had a stroke- residual memory issues) Hernias in abdomen- can reduce, stage 2 kidney disease-stable per sister History of Any Multi-Drug Resistant Organisms: None Reported Past Surgical History: Unable to Obtain Additional Past Surgical History / Comment(s): "aortic bifemoral bypass early 2018" , left carotid stent Past Anesthesia/Blood Transfusion Reactions: No Reported Reaction Past Psychological History: Anxiety Smoking Status: Current every day smoker - Past Family History Sister(s) Family Medical History: Cancer Additional Family Medical History / Comment(s): uterine. other sister breast cancer Father Family Medical History: Unable to Obtain Mother Family Medical History: No Reported History Medications and Allergies Home Medications Medication Instructions Recorded Confirmed Type Aspirin [Adult Low Dose Aspirin EC] 81 mg PO DAILY 09/03/18 04/19/22 History Amiodarone [Cordarone] 100 mg PO DAILY 01/25/19 04/19/22 History Calcium Acetate [PhosLo] 667 mg PO AC-BID 01/25/19 04/19/22 History Potassium Citrate [Potassium 10 meq PO DAILY 01/25/19 04/19/22 History Citrate ER] traMADol HCL [Ultram] 50 mg PO BID #12 tab 02/18/19 04/19/22 Rx Atorvastatin [Lipitor] 80 mg PO HS 11/01/21 04/19/22 History Levothyroxine Sodium 100 mcg PO DAILY 11/01/21 04/19/22 History Omeprazole 20 mg PO QAM 11/01/21 04/19/22 History Spironolactone-Hctz 25-25Mg 1 each PO BID 11/01/21 04/19/22 History [Aldactazide 25-25 MG] Warfarin [Coumadin] 10 mg PO HS 11/01/21 04/17/22 History carvediloL 12.5 mg PO BID 11/01/21 04/19/22 History cilostazoL 100 mg PO BID 11/01/21 04/19/22 History Clopidogrel [Plavix] 75 mg PO DAILY #90 tablet 11/03/21 04/19/22 Rx Gabapentin [Neurontin] 300 mg PO BID 04/17/22 04/19/22 History Magnesium Oxide [Mag-Ox] 400 mg PO DAILY 04/17/22 04/19/22 History rOPINIRole HCL [Requip] 0.25 mg PO HS 04/17/22 04/19/22 History Allergies Allergy/AdvReac Type Severity Reaction Status Date / Time Penicillins Allergy Severe Swelling Verified 10/02/23 07:15 ceftriaxone Allergy Unknown Verified 10/02/23 07:15 Physical Exam Vitals: Vital Signs Temp Pulse Pulse Resp BP Pulse Ox 10/02/23 07:16 81 10/02/23 07:10 98.4 F 66 22 101/68 95 Intake and Output 10/01/23 10/02/2310/01/24 22:59 06:59 14:59 Other: Weight 95.254 kg Results 10/02/23 07:26 10/02/23 07:26 Cardiac Enzymes 10/02/23 Range/Units 07:26 AST 26 (17-59) U/L Coagulation 10/02/23 Range/Units 07:26 PT 10.7 (10.0-12.5) sec APTT 23.3 (22.0-30.0) sec CBC 10/02/23 Range/Units 07:26 WBC 12.6 H (3.8-10.6) k/uL RBC 5.00 (4.30-5.90) m/uL Hgb 14.3 (13.0-17.5) gm/dL Hct 42.8 (39.0-53.0) % Plt Count 252 (150-450) k/uL Comprehensive Metabolic Panel 10/02/23 Range/Units 07:26 Sodium 137 (137-145) mmol/L Potassium 4.5 (3.5-5.1) mmol/L Chloride 104 (98-107) mmol/L Carbon Dioxide 25 (22-30) mmol/L BUN 17 (9-20) mg/dL Creatinine 1.71 H (0.66-1.25) mg/dL Glucose 119 H (74-99) mg/dL Calcium 9.1 (8.4-10.2) mg/dL AST 26 (17-59) U/L ALT 26 (4-49) U/L Alkaline Phosphatase 97 (38-126) U/L Total Protein 6.6 (6.3-8.2) g/dL Albumin 3.7 (3.5-5.0) g/dL Current Medications Generic Name Dose Route Start Last Admin Trade Name Freq PRN Reason Stop Dose Admin Aspirin 325 mg 10/03/23 09:00 Aspirin 325 Mg Tab PO DAILY AARON Nitroglycerin 0.4 mg 10/02/23 08:17 Nitroglycerin Sl Tabs 0.4 Mg Tab SUBLINGUAL Q5M PRN Chest Pain Intake and Output 10/01/23 10/02/23 10/02/23 22:59 06:59 14:59 Other: Weight 95.254 kg Patient Weight 10/03/23 06:59 Weight 95.254 kg 10/02/23 07:26 10/02/23 07:26
[2023-10-02] MEDS ORDERED: traMADol 50 MG TAB PO PRN (20:40)
[2023-10-02] MEDS: carvediloL 12.5 MG TAB PO SCH (22:32)
[2023-10-02] MEDS: GABAPENTIN 300 MG CAP PO SCH (22:32)
[2023-10-02] MEDS: ATORVASTATIN 80 MG TAB PO SCH (22:33)
[2023-10-02] MEDS: cilostazoL 100 MG TAB PO SCH (22:33)
[2023-10-02] MEDS: AMIODARONE 100 MG TAB PO SCH (22:33)
[2023-10-02] MEDS: SPIRONOLACTONE 25 MG TAB PO SCH (22:33)
--- NOTE | 2023-10-02 22:44 | HP ---
HISTORY AND PHYSICAL CHIEF COMPLAINT: Chest pain. HISTORY OF PRESENT ILLNESS: This is another admission for this 58-year-old white male, who started having chest pain 3 o'clock this afternoon. He described it as feeling like "there was a pressure or weight on his chest." He became short of breath and diaphoretic. He came to the emergency room eventually, where it was determined that he probably had an NSTEMI. He has had extensive history of atherosclerotic problems including PVOD. He continues to smoke heavily. He is a fairly noncompliant patient. He is on numerous medications, but does not take them appropriately. REVIEW OF SYSTEMS: He denies any syncope, nausea, vomiting, confusion, neurologic signs or symptoms, etc. Past medical history, family history, personal and social history reveal he is allergic to penicillin. MEDICATIONS: He is supposed to be on, 1. Coumadin 2.5 once a day. 2. Spironolactone 25 one half twice a day. 3. Hydrochlorothiazide 25 one half twice a day. 4. Ropinirole 0.25 at bedtime. 5. Aspirin. 6. Potassium 10 mEq once a day. 7. Magnesium once a day. 8. Levothyroxine 0.125 once a day. 9. Gabapentin 300 mg t.i.d. 10.Tramadol 50 mg q.6h p.r.n. 11.Clopidogrel 75 once a day. 12.Aldactazide 0.5 twice a day. 13.Cozaar 100 mg once a day. 14.Coreg 12.5 twice a day. 15.Atorvastatin 80 once a day. 16.Amlodipine 10 mg once a day. 17.Cilostazol 100 mg twice a day. SOCIAL HISTORY: He does continue to smoke every day. PHYSICAL EXAMINATION: VITAL SIGNS: Blood pressure 130/86 with a pulse of 92, respirations 33. He is afebrile. GENERAL: He appeared to be slightly overweight, in no acute distress. SKIN: Color is normal. Skin is warm, dry. LYMPHATICS: Lymph nodes are not enlarged. HEAD, EARS, EYES, NOSE, MOUTH AND THROAT: Normal. CHEST: Demonstrated decreased breath sounds due to his emphysema. CARDIAC: Demonstrated what sounded like sinus rhythm. ABDOMEN: Soft and protuberant. EXTREMITIES: Normal with decreased pulses in the legs. IMPRESSION: 1. Non ST elevation myocardial infarction. 2. Extensive atherosclerotic cardiovascular disease. 3. History of peripheral vascular occlusive disease. 4. Left carotid occlusive disease. 5. Noncompliant patient. 6. Chronic obstructive pulmonary disease. PLAN: 1. Bedrest. 2. IV fluids. 3. Serial EKGs and enzymes. 4. Consult with Cardiology. EASTON / JOSE: [id number] /
[2023-10-03] MEDS: CALCIUM ACETATE 667 MG TAB PO SCH (06:32)
[2023-10-03] MEDS ORDERED: HEPARIN SODIUM,PORCINE (1 ML) 2,500 UNIT in SODIUM CHLORIDE 0.9% 250 ML IRRIGATION PRN (07:00)
[2023-10-03] MEDS ORDERED: HEPARIN SODIUM,PORCINE 10,000 UNIT in SODIUM CHLORIDE 0.9% 1,000 ML IRRIGATION PRN (07:00)
[2023-10-03] MEDS: MAGNESIUM OXIDE 400 MG TAB PO SCH (08:51)
[2023-10-03] MEDS: ASPIRIN 325 MG TAB PO SCH (08:52)
[2023-10-03] MEDS: CLOPIDOGREL 75 MG TAB PO SCH ×2 (08:52→08:53)
[2023-10-03] MEDS: LEVOTHYROXINE 125 MCG TAB PO SCH (08:52)
[2023-10-03] MEDS: POTASSIUM CITRATE 10 MEQ TABLET.ER PO SCH (08:53)
[2023-10-03] MEDS: ASPIRIN 81 MG PO SCH (08:53)
[2023-10-03 10:37] LABS: Basophils % (A) 0 %; Eosinophils # (A) 0.1 k/uL (0-0.7); Eosinophils % (A) 2 %; HCT 42.2 % (39.0-53.0); HGB 13.4 gm/dL (13.0-17.5); Lymphocytes # (A) 0.8 k/uL (1.0-4.8); Lymphocytes % (A) 10 %; MCH 27.5 pg (25.0-35.0); MCHC 31.7 g/dL (31.0-37.0); MCV 86.7 fL (80.0-100.0); Mean Platelet Volume 8.8; Monocytes # (A) 0.9 k/uL (0-1.0); Monocytes % (A) 12 %; Neutrophils # (A) 5.7 k/uL (1.3-7.7); Neutrophils % (A) 74 %; Platelet Count 200 k/uL (150-450); RBC 4.86 m/uL (4.30-5.90); RDW 15.1 % (11.5-15.5); WBC 7.8 k/uL (3.8-10.6)
[2023-10-03 10:46] LABS: INR 1.4 (<1.2); Prothrombin Time 14.2 sec (10.0-12.5)
[2023-10-03 11:03] LABS: African American GFR (CKD) 48 (>60 ml/min/1.73 sqM); Anion Gap 3 mmol/L; Blood Urea Nitrogen 14 mg/dL (9-20); Calcium 8.2 mg/dL (8.4-10.2); Carbon Dioxide 27 mmol/L (22-30); Chloride 108 mmol/L (98-107); Glucose 72 mg/dL (74-99); Non-African American GFR(CKD) 42 (>60 ml/min/1.73 sqM); Potassium 3.7 mmol/L (3.5-5.1); Sodium 138 mmol/L (137-145)
[2023-10-03 11:43] VITALS: BMI 31.9
--- NOTE | 2023-10-03 13:26 | P.PN ---
Subjective HISTORY OF PRESENT ILLNESS: Patient is status postcardiac catheterization with Dr. Deutsch with stenting of the proximal circumflex. Patient examined this morning the bedside. Patient denies any chest pain or pressure. He denies any shortness of breath. Vital signs are stable. PHYSICAL EXAM: VITAL SIGNS: Reviewed. GENERAL: Well-developed in no acute distress. NECK: Supple. No JVD or thyromegaly LUNGS: Respirations even and unlabored. Lungs essentially clear to auscultation bilaterally. HEART: Regular rate and rhythm. S1 and S2 heard. EXTREMITIES: Normal range of motion. No clubbing or cyanosis. Peripheral pulses intact. No lower extremity edema ASSESSMENT: Non-STEMI, status post PCI of the circumflex Paroxysmal atrial fibrillation Chronic kidney disease Hypertension Hyperlipidemia Hypothyroidism Nicotine dependence PLAN: Continue dual antiplatelet therapy with aspirin and Plavix for 12 months Continue statin therapy. Goal LDL less than 70. Continue additional cardiac medications Resume Coumadin. Monitor INR. Decrease amiodarone to 100 mg daily Smoking cessation recommended. Patient to be referred to [place] quit line upon discharge. Further recommendations pending patient course Nurse practitioner note has been reviewed by physician. Signing provider agrees with the documented findings, assessment, and plan of care documented by TAPER MACHINE as a scribe. Objective - Vital Signs Vital signs: Vital Signs Temp 97.7 F 10/03/23 11:30 Pulse 71 10/03/23 11:30 Resp 20 10/03/23 11:30 BP 118/79 10/03/23 11:30 Pulse Ox 97 10/03/23 11:30 FiO2 Intake & Output 10/02/23 10/03/23 10/03/23 18:59 06:59 18:59 Intake Total 750 1480 180 Output Total 600 Balance 750 880 180 Weight 95.254 kg 95.254 kg Intake: IV 350 Intake, IV Titration 400 1000 Amount Sodium Chloride 0.9% 1, 400 1000 000 ml In Empty Bag 1 bag @ 75 mls/hr IV .[id number] AARON Rx#:[id number] Oral 480 180 Output: Urine 600 - Labs CBC & Chem 7: 10/03/23 10:12 10/03/23 10:12 Labs: Abnormal Lab Results - Last 24 Hours (Table) 10/03/23 10/03/23 10/03/23 Range/Units 10:12 10:12 10:12 Lymphocytes # 0.8 L (1.0-4.8) k/uL PT 14.2 H (10.0-12.5) sec INR 1.4 H (<1.2) Chloride 108 H (98-107) mmol/L Creatinine 1.75 H (0.66-1.25) mg/dL Glucose 72 L (74-99) mg/dL Calcium 8.2 L (8.4-10.2) mg/dL
--- NOTE | 2023-10-03 16:30 | CA ---
Transthoracic Echo Report Name: Ralph Agarwal Age: 58 Gender: M : 1965 Exam Date: 10/03/2023 08:35 Exam Location: [facility] Ht (in): 68 Wt (lb): 210 Ordering Physician: Triston Gallo Attending/Referring Phys: [id number], Sabino Binitrotoluene Operator Perla Nix, ANA LAURA Procedure CPT: Indications: Chest Pain Cardiac Hx: Technical Quality: Fair Contrast 1: Total Dose (mL): Contrast 2: Total Dose (mL): MEASUREMENTS (Male / Female) Normal Values 2D ECHO LV Diastolic Diameter PLAX 4.6 cm 4.2 - 5.9 / 3.9 - 5.3 cm LV Systolic Diameter PLAX 3.6 cm IVS Diastolic Thickness 1.5 cm 0.6 - 1.0 / 0.6 - 0.9 cm LVPW Diastolic Thickness 1.5 cm 0.6 - 1.0 / 0.6 - 0.9 cm LV Relative Wall Thickness 0.6 RV Internal Dim ED PLAX 3.6 cm LA Systolic Diameter LX 3.3 cm 3.0 - 4.0 / 2.7 - 3.8 cm LV Diastolic Volume MOD 4C 148.6 cm??? LV Systolic Volume MOD 4C 67.3 cm??? LV Ejection Fraction MOD 4C 54.7 % LV Cardiac Index MOD 4C 2850.5 cm???/min???m??? LV Diastolic Length 4C 9.4 cm LV Systolic Length 4C 8.1 cm LV Diastolic Volume MOD 2C 118.3 cm??? LV Systolic Volume MOD 2C 45.0 cm??? LV Ejection Fraction MOD 2C 62.0 % LV Cardiac Index MOD 2C 2568.5 cm???/min???m??? LV Diastolic Length 2C 9.2 cm LV Systolic Length 2C 7.6 cm LA Volume 56.1 cm??? 18 - 58 / 22 - 52 cm??? LA Volume Index 25.9 cm???/m??? 16 - 28 cm???/m??? M-MODE Aortic Root Diameter MM 4.0 cm AV Cusp Separation MM 2.7 cm DOPPLER AV Peak Velocity 122.6 cm/s AV Peak Gradient 6.0 mmHg MV Area PHT 3.2 cm??? Mitral E Point Velocity 68.5 cm/s Mitral A Point Velocity 80.1 cm/s Mitral E to A Ratio 0.9 MV Deceleration Time 237.1 ms FINDINGS Left Ventricle Left ventricular ejection fraction is estimated at 55-60 %. Moderately increased septal wall thickness. Left ventricular cavity size normal. No obvious regional wall motion abnormalities. Right Ventricle Mild right ventricular dilatation. Unable to estimate the right ventricular systolic pressure. Right Atrium Normal right atrial size. No right atrial thrombus or mass seen. Left Atrium Left atrium not well visualized. No left atrial thrombus or mass present. Mitral Valve Structurally normal mitral valve. No mitral stenosis, regurgitation or prolapse. Aortic Valve Trileaflet aortic valve. No aortic valve stenosis or regurgitation. Tricuspid Valve Structurally normal tricuspid valve. No tricuspid stenosis, regurgitation or prolapse. Pulmonic Valve Pulmonic valve not well visualized. Pericardium No pericardial or pleural effusion. Aorta Mild aortic dilatation at the level of the sinuses of valsalva 40 mm CONCLUSIONS Left ventricular ejection fraction is estimated at 55-60 %. No obvious regional wall motion abnormalities. Moderate concentric LVH Mild RV dilatation. No significant valve dysfunction Mild aortic root dilation with sinus of Valsalva measuring 4 cm Previewed by: Dr Triston Leahy (Electronically Signed) Final Date: 03 Oct 2023 16:29
[2023-10-03] MEDS: WARFARIN 5 MG TAB PO ONE (17:35)
[2023-10-03 21:08] LABS: Chol/HDL Ratio 4.23 Ratio; LDL Cholesterol,Calculated 49.5 mg/dL (0.0-131.0)
[2023-10-04] MEDS: AMIODARONE 100 MG TAB PO SCH (09:01)
[2023-10-04 10:07] LABS: INR 1.7 (<1.2); Prothrombin Time 17.3 sec (10.0-12.5)
[2023-10-04] MEDS: WARFARIN 3 MG TAB PO ONE (16:58)
--- NOTE | 2023-10-04 19:10 | P.PN ---
Subjective Patient is doing well. He has no chest discomfort dizziness or lightheadedness His INR is still subtherapeutic He underwent coronary stenting recently and has done well postprocedure condition blood pressure 119/70 mmHg respirations 18 pulse rate in the 70s Heart sounds are normal no murmurs Breath sounds are clear Normal white count. Hemoglobin normal Platelet count normal Electrolytes normal sodium 138 potassium 3.7 BUN 14 creatinine 1.75 Triglyceride greater than 200 Impression Coronary artery disease status post coronary stenting Atrial fibrillation was on amiodarone The dose of amiodarone has been reduced to 100 mg p.o. daily on this admission Dyslipidemia PVD Current smoker Suggest Continue warfarin pharmacy dosing May go home when his INR is greater than 2.0 Add Zetia 10 mg p.o. daily on account of hypertriglyceridemia and progressive CAD Stop smoking Objective - Vital Signs Vital signs: Vital Signs Temp 98.6 F 10/04/23 15:33 Pulse 71 10/04/23 15:33 Resp 18 10/04/23 15:33 BP 119/70 10/04/23 15:33 Pulse Ox 95 10/04/23 15:33 FiO2 Intake & Output 10/04/23 10/04/23 10/05/23 06:59 18:59 06:59 Intake Total 1100 Output Total 0 Balance 1100 Intake: Oral 1100 Output: Gastric Drainage 0 Urine 0 Stool 0 Urine/Stool Mix 0 Emesis 0 Oral Regurgitation 0 Other 0 Other: Voiding Method Toilet Toilet # Voids 2 0 # Bowel Movements 0 - Labs CBC & Chem 7: 10/03/23 10:12 10/03/23 10:12 Labs: Abnormal Lab Results - Last 24 Hours (Table) 10/03/23 10/04/23 Range/Units 10:12 08:54 PT 17.3 H (10.0-12.5) sec INR 1.7 H (<1.2) Triglycerides 203.00 H (0.00-149.00) mg/dL VLDL Cholesterol, Calc 40.60 H (5.00-40.00) mg/dL HDL Cholesterol 27.90 L (40.00-60.00) mg/dL
--- NOTE | 2023-10-05 02:07 | PN ---
PROGRESS NOTE DATE OF SERVICE: 10/04/2023 CHIEF COMPLAINT: NSTEMI. HISTORY OF PRESENT ILLNESS: This gentleman is doing well and thinks that he is going to be discharged today. We wait here from Cardiology. PHYSICAL EXAMINATION: VITAL SIGNS: Normal. CHEST: Clear. CARDIAC: Normal. IMPRESSION: 1. Acute STEMI. 2. Chronic obstructive pulmonary disease. 3. Coronary artery disease. PLAN: Probably home today. MMODL / IJN: [id number] /
[2023-10-05 05:38] VITALS: RESP 16
[2023-10-05 08:03] LABS: INR 2.2 (<1.2); Prothrombin Time 21.6 sec (10.0-12.5)
[2023-10-05 10:35] VITALS: BP 134/77; PULSE 82; TEMP 96.9
--- NOTE | 2023-10-05 12:54 | P.PN ---
Subjective Patient is doing well. He denies any chest discomfort dizziness lightheadedness No palpitations His INR today is 2.2 Blood pressure 134/77 mmHg Impression CAD Non-Q wave KS Status post stenting On warfarin for atrial fibrillation Plan Reduce amiodarone to 100 mg p.o. daily Continue warfarin May go home today and follow-up with Dr. Deutsch Objective - Vital Signs Vital signs: Vital Signs Temp 96.9 F L 10/05/23 08:00 Pulse 82 10/05/23 08:00 Resp 16 10/05/23 08:00 BP 134/77 10/05/23 08:00 Pulse Ox 99 10/05/23 08:00 FiO2 Intake & Output 10/04/23 10/05/23 10/05/23 18:59 06:59 18:59 Intake Total 1100 480 Output Total 0 Balance 1100 480 Intake: Oral 1100 480 Output: Gastric Drainage 0 Urine 0 Stool 0 Urine/Stool Mix 0 Emesis 0 Oral Regurgitation 0 Other 0 Other: Voiding Method Toilet Toilet # Voids 0 2 # Bowel Movements 0 2 0 - Labs CBC & Chem 7: 10/03/23 10:12 10/03/23 10:12 Labs: Abnormal Lab Results - Last 24 Hours (Table) 10/05/23 Range/Units 06:45 PT 21.6 H (10.0-12.5) sec INR 2.2 H (<1.2)
[2023-10-05] MEDS ORDERED: WARFARIN 7.5 MG TAB PO ONE (18:00)
--- NOTE | 2023-10-06 06:35 | PN ---
PROGRESS NOTE DATE OF SERVICE: 10/03/2023 CHIEF COMPLAINT: Acute NSTEMI. HISTORY OF PRESENT ILLNESS: This gentleman is comfortable. He has had no problems. He has had no chest pain, shortness of breath, confusion, palpitations, etc. He is going for a cardiac cath. PHYSICAL EXAMINATION: VITAL SIGNS: Normal. CHEST: Clear. CARDIAC: Normal. ABDOMEN: Soft, nontender. IMPRESSION: 1. Acute CA. 2. Congestive heart failure. 3. COPD. 4. PVOD. 5. ASCVD. 6. Noncompliant patient. PLAN: Cardiac cath today. MMODL / IJN: [id number] /
--- NOTE | 2023-10-06 08:14 | DS ---
DISCHARGE SUMMARY CHIEF COMPLAINT: Chest pain. HISTORY OF PRESENT ILLNESS AND PHYSICAL EXAM: Details of this man's history and physical can be found in the initial workup. LABORATORY STUDIES: While he was in the hospital, he had laboratory studies, details of which could be found in the laboratory section of his chart. COURSE IN THE HOSPITAL: After admission, he was placed on bedrest, started . MMOLESYA / CARMINEN: [id number] /
== END 2023-10-05 12:42 | disposition home or self-care (01) | DRG 322 ==
LOC: EC 07:08 → 3SCARD 08:17
PROVIDERS: ADMIT Family Medicine; ATTEND Family Medicine
PROC: 027034Z Dilation of Coronary Artery, One Artery with Drug-eluting Intraluminal Device, Percutaneous Approach (ICD-10-PCS; principal; 2023-10-02 14:10)
PROC: B240ZZ3 Ultrasonography of Single Coronary Artery, Intravascular (ICD-10-PCS; 2023-10-02 14:10)
PROC: 4A023N8 Measurement of Cardiac Sampling and Pressure, Bilateral, Percutaneous Approach (ICD-10-PCS; 2023-10-02 14:10)
PROC: B2161ZZ Fluoroscopy of Right and Left Heart using Low Osmolar Contrast (ICD-10-PCS; 2023-10-02 14:10)
DX: I21.4 Non-ST elevation (NSTEMI) myocardial infarction (principal); I25.10 Atherosclerotic heart disease of native coronary artery without angina pectoris; I12.9 Hypertensive chronic kidney disease with stage 1 through stage 4 chronic kidney disease, or unspecified chronic kidney disease; E78.5 Hyperlipidemia, unspecified; E03.9 Hypothyroidism, unspecified; Z79.890 Hormone replacement therapy; I48.0 Paroxysmal atrial fibrillation
CPT/HCPCS: 36415; 71046; 76937; 80048; 80053; 80061; 83735; 83880; 84484; 85025; 85610; 85730; 92978; 93005; 93306; 93458; 94760; 96361; 96374; 96375; 99291

== ENCOUNTER 2024-12-03 03:12 | Inpatient (IN) | payer MEDICARE, OTHER ==
--- NOTE | 2024-12-03 03:18 | ED ---
General Adult HPI - General Stated complaint: Chest pain Time Seen by Provider: 12/03/24 03:16 Source: patient, EMS, RN notes reviewed, old records reviewed Mode of arrival: ambulatory Limitations: no limitations - History of Present Illness Initial comments: 59-year-old male presenting for evaluation of substernal chest pain radiating to the left arm. Symptoms began approximately 1 hour and 20 minutes prior to arrival. Patient was transported by paramedics. Given aspirin and nitroglycerin as well as fentanyl during transport. Patient has prior history of CAD stating previous history of CABG and stenting. - Related Data Home Medications Medication Instructions Recorded Confirmed Aspirin [Adult Low Dose Aspirin EC] 81 mg PO DAILY 09/03/18 10/02/23 Calcium Acetate [PhosLo] 667 mg PO AC-BID 01/25/19 10/02/23 Potassium Citrate [Potassium 10 meq PO DAILY 01/25/19 10/02/23 Citrate ER] Atorvastatin [Lipitor] 80 mg PO HS 11/01/21 10/02/23 carvediloL 12.5 mg PO BID 11/01/21 10/02/23 cilostazoL 100 mg PO BID 11/01/21 10/02/23 Gabapentin [Neurontin] 300 mg PO TID 04/17/22 10/02/23 Magnesium Oxide [Mag-Ox] 400 mg PO DAILY 04/17/22 10/02/23 rOPINIRole HCL [Requip] 0.25 mg PO HS 04/17/22 10/02/23 Amiodarone [Cordarone] 100 mg PO BID 10/02/23 10/02/23 Ergocalciferol [Vitamin D2 (1250 1,250 mcg PO QMONTHLY 10/02/23 10/02/23 Mcg = 73529 Iu)] Levothyroxine Sodium [Synthroid] 125 mcg PO DAILY 10/02/23 10/02/23 Losartan Potassium [Cozaar] 100 mg PO DAILY 10/02/23 10/02/23 Multivitamins, Thera [Multivitamin 1 tab PO DAILY 10/02/23 10/02/23 (formulary)] Spironolactone [Aldactone] 12.5 mg PO BID 10/02/23 10/02/23 Warfarin [Coumadin] 2.5 mg PO DIRECTED 10/02/23 10/02/23 amLODIPine [Norvasc] 10 mg PO DAILY 10/02/23 10/02/23 hydroCHLOROthiazide [Hydrodiuril] 12.5 mg PO BID 10/02/23 10/02/23 traMADol HCL [Ultram] 50 mg PO BID PRN 10/02/23 10/02/23 Previous Rx's Medication Instructions Recorded Clopidogrel [Plavix] 75 mg PO DAILY #90 tablet 11/03/21 Nitroglycerin Sl Tabs [Nitrostat] 0.4 mg SUBLINGUAL Q5M PRN #20 tab 10/04/23 Allergies Allergy/AdvReac Type Severity Reaction Status Date / Time Penicillins Allergy Severe Swelling Verified 12/03/24 03:18 ceftriaxone Allergy Unknown Verified 12/03/24 03:18 Review of Systems ROS Statement: Those systems with pertinent positive or pertinent negative responses have been documented in the HPI. ROS Other: All systems not noted in ROS Statement are negative. Past Medical History Past Medical History: Atrial Fibrillation, COPD, CVA/TIA, GERD/Reflux, Hypertension, Memory Impairment, Osteoarthritis (OA), Renal Disease, Thyroid Disorder, Vascular Disorder Additional Past Medical History / Comment(s): "no blood flow to legs", arthritis in lower back,. sees Dr Gutierrez for kidneys (complication of aorto/femoral bypass) ( sister states after being put in coma due to kidney issues,pt was home and was drinking with all his meds and had a stroke- residual memory issues) Hernias in abdomen- can reduce, stage 2 kidney disease-stable per sister History of Any Multi-Drug Resistant Organisms: None Reported Past Surgical History: Unable to Obtain Additional Past Surgical History / Comment(s): "aortic bifemoral bypass early 2018" , left carotid stent Past Anesthesia/Blood Transfusion Reactions: No Reported Reaction Past Psychological History: Anxiety Smoking Status: Current every day smoker - Past Family History Sister(s) Family Medical History: Cancer Additional Family Medical History / Comment(s): uterine. other sister breast cancer Father Family Medical History: Unable to Obtain Mother Family Medical History: No Reported History General Exam General appearance: alert, in no apparent distress Head exam: Present: atraumatic, normocephalic Eye exam: Present: normal appearance, PERRL ENT exam: Present: normal exam Neck exam: Present: normal inspection. Absent: tenderness, meningismus Respiratory exam: Present: normal lung sounds bilaterally. Absent: respiratory distress, wheezes Cardiovascular Exam: Present: regular rate, normal rhythm GI/Abdominal exam: Present: soft. Absent: distended, tenderness, guarding Neurological exam: Present: alert, CN II-XII intact. Absent: motor sensory deficit Psychiatric exam: Present: normal affect, normal mood Skin exam: Present: warm, diaphoretic, pallor Course Vital Signs 12/03/24 12/03/24 12/03/24 03:13 03:20 03:30 Temperature 97.6 F Pulse Rate 54 L 53 L 60 Respiratory 18 18 18 Rate Blood Pressure 121/73 107/78 119/92 O2 Sat by Pulse 96 97 97 Oximetry Medical Decision Making - Medical Decision Making Was pt. sent in by a medical professional or institution (, ALLIE, PROCESSING CLERK, urgent care, hospital, or skilled nursing...) When possible be specific @ -No Did you speak to anyone other than the patient for history (EMS, parent, family, police, friend...)? What history was obtained from this source @ -No Did you review nursing and triage notes (agree or disagree)? Why? @ -I reviewed and agree with nursing and triage notes Were old charts reviewed (outside hosp., previous admission, EMS record, old EKG, old radiological studies, urgent care reports/EKG's, skilled nursing records)? Report findings @ -No old charts were reviewed Differential Chest Pain: Stable Angina, Unstable Angina, STEMI, NSTEMI Aortic Dissection, Pneumothorax, Musculoskeletal, Esophageal Spasm GERD, Cholecystitis, Pancreatitis, Zoster, this is not meant to be an all-inclusive list. EKG interpreted by me (3pts min.). @ -Sinus bradycardia rate of 53, ST segment elevation in the precordial leads consistent with acute WV WV interval 152, QRS duration 99, QTc 443 X-rays interpreted by me (1pt min.). @ -Chest x-ray negative for acute findings. CT interpreted by me (1pt min.). @ -None done U/S interpreted by me (1pt. min.). @ -None done What testing was considered but not performed or refused? (CT, X-rays, U/S, labs)? Why? @ -None What meds were considered but not given or refused? Why? @ -None Did you discuss the management of the patient with other professionals ( professionals i.e. , PA, PROCESSING CLERK, lab, RT, psych nurse, case management social worker, food safety auditor, teacher, airfield services officer, case management social worker)? Give summary @ -Dr. Chawla covering for cardiology, and Dr. Mcgarry who will admit Was smoking cessation discussed for >3mins.? @ -No Was critical care preformed (if so, how long)? @ -Yes, 35 minutes Were there social determinants of health that impacted care today? How? (Homele ssness, low income, unemployed, alcoholism, drug addiction, transportation, low edu. Level, literacy, decrease access to med. care, [facility], rehab)? @ -No Was there de-escalation of care discussed even if they declined (Discuss DNR or withdrawal of care, Hospice)? DNR status @ -No What co-morbidities impacted this encounter? (DM, HTN, Smoking, COPD, CAD, Cancer, CVA, ARF, Chemo, Hep., AIDS, mental health diagnosis, sleep apnea, morbid obesity)? @ -[CAD Was patient admitted / discharged? Hospital course, mention meds given and route, prescriptions, significant lab abnormalities, going to OR and other pertinent info. @ -59-year-old male presenting with an ST segment elevated WV, anterior WV. Patient is pale and diaphoretic. He is given aspirin, nitroglycerin by paramedics and heparin, Lipitor and morphine in the emergency department. He is taken urgently to the Hypertrichologist for intervention. Undiagnosed new problem with uncertain prognosis? @ -No Drug Therapy requiring intensive monitoring for toxicity (Heparin, Nitro, Insulin, Cardizem)? @ -No Were any procedures done? @ -No Diagnosis/symptom? @ -[STEMI Acute, or Chronic, or Acute on Chronic? @ -Acute Uncomplicated (without systemic symptoms) or Complicated (systemic symptoms)? @ -Complicated Side effects of treatment? @ -No Exacerbation, Progression, or Severe Exacerbation? @ -No Poses a threat to life or bodily function? How? (Chest pain, USA, WV, pneumonia, PE, COPD, DKA, ARF, appy, cholecystitis, CVA, Diverticulitis, Homicidal, Suicidal, threat to staff... and all critical care pts) @ -Yes, cardiogenic shock, arrhythmia - Lab Data Result diagrams: 12/03/24 03:18 Lab Results 12/03/24 Range/Units 03:18 WBC 13.61 H (4.50-10.00) 10*3/uL RBC 5.02 (4.40-5.60) 10*6/uL Hgb 14.9 (13.0-17.0) g/dL Hct 42.9 (39.6-50.0) % MCV 85.5 (80.0-97.0) fL MCH 29.7 (27.0-32.0) pg MCHC 34.7 (32.0-37.0) g/dL Plt Count 239 (140-440) 10*3/uL MPV 10.9 (9.5-12.2) fL Immature Gran % (Auto) 0.7 % Neutrophils % 80.1 % Lymphocytes % 9.3 % Monocytes % 7.2 % Eosinophils % 2.1 % Basophils % 0.6 % Immature Gran # 0.09 H (0.00-0.04) 10*3/uL Neutrophils # 10.91 H (1.80-7.70) 10*3/uL Lymphocytes # 1.26 (0.90-5.00) 10*3/uL Monocytes # 0.98 (0.20-1.00) 10*3/uL Eosinophils # 0.29 (0.04-0.35) 10*3/uL Basophils # 0.08 (0.00-0.10) 10*3/uL Critical Care Time Critical Care Time: Yes Total Critical Care Time: 35 Disposition Clinical Impression: ST elevation myocardial infarction (STEMI) Disposition: ADMITTED IP TO THIS [facility] Condition: Serious Is patient prescribed a controlled substance at d/c from ED?: No Time of Disposition: 03:26
[2024-12-03] MEDS ORDERED: NALOXONE 0.4 MG/ML 1 ML VIAL IV PRN (03:21)
[2024-12-03] MEDS: HEPARIN SODIUM 1,000 UN/ML (10ML VL) IV ONE ×2 (03:23→04:28)
[2024-12-03] MEDS: SODIUM CHLORIDE 0.9% 1,000 ML IV ONE ×2 (03:25→04:16)
[2024-12-03] MEDS: MORPHINE SULFATE 4 MG/ML SYRINGE IVP STA (03:27)
[2024-12-03] MEDS: ATORVASTATIN 80 MG TAB PO STA (03:29)
[2024-12-03 03:42] LABS: Basophils # (A) 0.08 10*3/uL (0.00-0.10); Basophils % (A) 0.6 %; Eosinophils # (A) 0.29 10*3/uL (0.04-0.35); Eosinophils % (A) 2.1 %; HCT 42.9 % (39.6-50.0); HGB 14.9 g/dL (13.0-17.0); Lymphocytes # (A) 1.26 10*3/uL (0.90-5.00); Lymphocytes % (A) 9.3 %; MCH 29.7 pg (27.0-32.0); MCHC 34.7 g/dL (32.0-37.0); MCV 85.5 fL (80.0-97.0); Monocytes # (A) 0.98 10*3/uL (0.20-1.00); Monocytes % (A) 7.2 %; Neutrophils # (A) 10.91 10*3/uL (1.80-7.70); Neutrophils % (A) 80.1 %; Platelet Count 239 10*3/uL (140-440); RBC 5.02 10*6/uL (4.40-5.60); RDW 14.0 % (11.5-14.5); WBC 13.61 10*3/uL (4.50-10.00)
--- NOTE | 2024-12-03 03:48 | XR ---
EXAM: XR Chest, 1 View CLINICAL HISTORY: XR Reason: chest pain TECHNIQUE: Frontal view of the chest. COMPARISON: 10/02/2023 FINDINGS: Lungs: Prominent vascular and interstitial markings throughout the lungs, exaggerated by body habitus and portable technique. No overt edema or focal consolidation is seen. Pleural space: Unremarkable. No pneumothorax. Heart: Unremarkable. No cardiomegaly. Mediastinum: Unremarkable. Normal mediastinal contour. Bones/joints: [id number] osteophytosis throughout the mid to lower thoracic spine. No acute fracture. IMPRESSION: Prominent vascular and interstitial markings throughout the lungs, exaggerated by body habitus and portable technique. No overt edema or focal consolidation is seen. Consider bronchitis.
[2024-12-03 03:52] LABS: INR 0.9 (<1.2); Partial Thromboplastin Time 22.9 sec (22.0-30.0); Prothrombin Time 10.4 sec (10.0-12.5)
[2024-12-03 03:56] LABS: ALT 23 U/L (4-49); AST 29 U/L (17-59); African American GFR (CKD) 72 (>60 ml/min/1.73 sqM); Albumin 3.8 g/dL (3.5-5.0); Alkaline Phosphatase 88 U/L (38-126); Anion Gap 9 mmol/L; Blood Urea Nitrogen 20 mg/dL (9-20); Calcium 8.8 mg/dL (8.4-10.2); Carbon Dioxide 20 mmol/L (22-30); Chloride 106 mmol/L (98-107); Glucose 140 mg/dL (74-99); Magnesium 1.8 mg/dL (1.6-2.3); Non-African American GFR(CKD) 62 (>60 ml/min/1.73 sqM); Sodium 135 mmol/L (137-145); Total Protein 6.6 g/dL (6.3-8.2)
[2024-12-03] MEDS: fentaNYL (PF) 50 MCG/ML 2 ML AMP IVP ONE (04:09)
[2024-12-03] MEDS: MIDAZOLAM 2 MG/2 ML VIAL IVP ONE (04:09)
[2024-12-03] MEDS: LIDOCAINE 1% INJ 10MG/ML (20 ML MDV) SQ ONE (04:09)
--- NOTE | 2024-12-03 04:12 | P.CRDCN ---
History of Present Illness History of present illness: CARDIOLOGY CONSULT dictated by Dr. Chawla IMPRESSION / ASSESSMENT: Anterior wall ND ST elevation Delayed presentation at least 10 to 12 hours after onset of chest discomfort Known coronary artery disease non-Q wave ND last year with stenting to the left circumflex Known severe peripheral vascular disease PLAN: Coronary angiography and possible intervention This is a very high risk case on account of a delayed presentation of 10 to 12 hours after the onset of chest discomfort which is only partially relieved with nitroglycerin at around 4:00 yesterday evening Severe peripheral vascular disease severe coronary artery disease coronary artery bypass graft HPI Patient started experiencing discomfort in the chest associated with chills and not feeling well since about 4:30 PM last afternoon. He took nitroglycerin with partial relief. The pain never really went away but there was partial relief with nitroglycerin. However at around midnight the pain once again suddenly became very severe and he called EMS at 2:30 AM. I received a STEMI call after 3 am and spoke to the ER physician Patient presented with an ST elevation ND anterior leads Past history of coronary artery disease hypertension and severe peripheral vascular disease Patient continues to smoke at least half to 1 pack of cigarettes a day REVIEW OF SYSTEMS: No fever chills or rigors, no cough, phlegm or expectoration, no nausea, vomiting or diarrhea, no hematuria, dysuria, no musculoskeletal complaints, no strokes or seizures, no skin lesions. EXAMINATION: 147/93 mmHg pulse rate 62 beats a minute Breath sounds reduced bilaterally with bilateral rhonchi Heart sounds distant no murmurs Dusky right upper extremity and hand with poorly palpable radial pulse on the right side Poorly palpable right femoral pulse Atrophic changes lower extremities as well as in the upper extremities consistent with severe peripheral vascular disease REVIEW OF LABS, ECG & MEDICAL DATA His medications have not been reconciled yet Elevated white count of 13.6 thousand hemoglobin 14.9 Past history of coronary artery disease hypertension Stenting of the proximal left circumflex in September 2023 for an acute non-ST elevation ND No pulses in the right or left radial artery, no pulses in the right common femoral artery as well At that time very mild disease in the left main and LAD Past Medical History Past Medical History: Atrial Fibrillation, COPD, CVA/TIA, GERD/Reflux, Hypertension, Memory Impairment, Osteoarthritis (OA), Renal Disease, Thyroid Disorder, Vascular Disorder Additional Past Medical History / Comment(s): "no blood flow to legs", arthritis in lower back,. sees Dr Gutierrez for kidneys (complication of aorto/femoral bypass) ( sister states after being put in coma due to kidney issues,pt was home and was drinking with all his meds and had a stroke- residual memory issues) Hernias in abdomen- can reduce, stage 2 kidney disease-stable per sister History of Any Multi-Drug Resistant Organisms: None Reported Past Surgical History: Unable to Obtain Additional Past Surgical History / Comment(s): "aortic bifemoral bypass early 2018" , left carotid stent Past Anesthesia/Blood Transfusion Reactions: No Reported Reaction Past Psychological History: Anxiety Smoking Status: Current every day smoker - Past Family History Sister(s) Family Medical History: Cancer Additional Family Medical History / Comment(s): uterine. other sister breast cancer Father Family Medical History: Unable to Obtain Mother Family Medical History: No Reported History Medications and Allergies Home Medications Medication Instructions Recorded Confirmed Type Aspirin [Adult Low Dose Aspirin EC] 81 mg PO DAILY 09/03/18 10/02/23 History Calcium Acetate [PhosLo] 667 mg PO AC-BID 01/25/19 10/02/23 History Potassium Citrate [Potassium 10 meq PO DAILY 01/25/19 10/02/23 History Citrate ER] Atorvastatin [Lipitor] 80 mg PO HS 11/01/21 10/02/23 History carvediloL 12.5 mg PO BID 11/01/21 10/02/23 History cilostazoL 100 mg PO BID 11/01/21 10/02/23 History Clopidogrel [Plavix] 75 mg PO DAILY #90 tablet 11/03/21 10/02/23 Rx Gabapentin [Neurontin] 300 mg PO TID 04/17/22 10/02/23 History Magnesium Oxide [Mag-Ox] 400 mg PO DAILY 04/17/22 10/02/23 History rOPINIRole HCL [Requip] 0.25 mg PO HS 04/17/22 10/02/23 History Amiodarone [Cordarone] 100 mg PO BID 10/02/23 10/02/23 History Ergocalciferol [Vitamin D2 (1250 1,250 mcg PO QMONTHLY 10/02/23 10/02/23 History Mcg = 26771 Iu)] Levothyroxine Sodium [Synthroid] 125 mcg PO DAILY 10/02/23 10/02/23 History Losartan Potassium [Cozaar] 100 mg PO DAILY 10/02/23 10/02/23 History Multivitamins, Thera [Multivitamin 1 tab PO DAILY 10/02/23 10/02/23 History (formulary)] Spironolactone [Aldactone] 12.5 mg PO BID 10/02/23 10/02/23 History Warfarin [Coumadin] 2.5 mg PO DIRECTED 10/02/23 10/02/23 History amLODIPine [Norvasc] 10 mg PO DAILY 10/02/23 10/02/23 History hydroCHLOROthiazide [Hydrodiuril] 12.5 mg PO BID 10/02/23 10/02/23 History traMADol HCL [Ultram] 50 mg PO BID PRN 10/02/23 10/02/23 History Nitroglycerin Sl Tabs [Nitrostat] 0.4 mg SUBLINGUAL Q5M PRN #20 tab 10/04/23 Rx Allergies Allergy/AdvReac Type Severity Reaction Status Date / Time Penicillins Allergy Severe Swelling Verified 12/03/24 03:18 ceftriaxone Allergy Unknown Verified 12/03/24 03:18 Physical Exam Vitals: Vital Signs Temp Pulse Resp BP Pulse Ox 12/03/24 03:45 62 18 147/93 97 12/03/24 03:30 60 18 119/92 97 12/03/24 03:20 53 L 18 107/78 97 12/03/24 03:13 97.6 F 54 L 18 121/73 96 Intake and Output 12/02/24 12/02/24 12/03/24 14:59 22:59 06:59 Other: Weight 81.647 kg Results 12/03/24 03:18 Coagulation 12/03/24 Range/Units 03:18 PT 10.4 (10.0-12.5) sec APTT 22.9 (22.0-30.0) sec CBC 12/03/24 Range/Units 03:18 WBC 13.61 H (4.50-10.00) 10*3/uL RBC 5.02 (4.40-5.60) 10*6/uL Hgb 14.9 (13.0-17.0) g/dL Hct 42.9 (39.6-50.0) % Plt Count 239 (140-440) 10*3/uL Current Medications Generic Name Dose Route Start Last Admin Trade Name Freq PRN Reason Stop Dose Admin Sodium Chloride 1,000 mls @ 999 mls/hr 12/03/24 03:20 12/03/24 03:25 Saline 0.9% IV 12/03/24 04:20 999 mls/hr .Q1H1M ONE Administration Naloxone HCl 0.2 mg 12/03/24 03:21 Naloxone 0.4 Mg/Ml 1 Ml Vial IV Q2M PRN Opioid Reversal Intake and Output 12/02/24 12/02/24 12/03/24 14:59 22:59 06:59 Other: Weight 81.647 kg Patient Weight 12/03/24 06:59 Weight 81.647 kg 12/03/24 03:18
[2024-12-03] MEDS: HEPARIN SODIUM,PORCINE (1 ML) 2,500 UNIT in SODIUM CHLORIDE 0.9% 250 ML IRRIGATION ONE (04:17)
[2024-12-03] MEDS: HEPARIN SODIUM,PORCINE 10,000 UNIT in SODIUM CHLORIDE 0.9% 1,000 ML IRRIGATION ONE (04:17)
[2024-12-03] MEDS: CLOPIDOGREL 75 MG TAB PO ONE (04:30)
[2024-12-03] MEDS: MORPHINE SULFATE 4 MG/ML SYRINGE IVP ONE (04:36)
[2024-12-03 04:37] LABS: Potassium 4.7 mmol/L (3.5-5.1)
[2024-12-03] MEDS: IOPAMIDOL-370 100ML BTL INJ ONE (04:52)
[2024-12-03] MEDS ORDERED: NITROGLYCERIN SL TABS 0.4 MG TAB SUBLINGUAL PRN ×2 (05:01→05:03)
[2024-12-03] MEDS ORDERED: traMADol 50 MG TAB PO PRN (05:01)
[2024-12-03] MEDS ORDERED: RX INFO: IV CONTRAST WAS GIVEN 1 EACH MISC MISCELLANE PRN (05:03)
[2024-12-03] MEDS ORDERED: ZOLPIDEM 5 MG TAB PO PRN (05:03)
[2024-12-03] MEDS ORDERED: ATROPINE SULFATE 0.1 MG/ML 10ML SYRINGE IV PRN (05:03)
--- NOTE | 2024-12-03 05:12 | P.PCN ---
Date of Procedure: 12/03/24 Operative Findings: CARDIAC CATHETERIZATION AND PERCUTANEOUS CORONARY INTERVENTION PERFORMING PHYSICIAN: Gael Deutsch MD, [facility] PROCEDURE PERFORMED: 1. Selective right and left coronary angiogram and left heart catheterization 2. Successful stenting of mid LAD using 4.0 x 23 mm Xience CARLA which was pos tdilated using 4.5 mm NC balloon with an excellent angiographic results 3. Adjunctive use of IVUS and aspiration thrombectomy 4. Ultrasound-guided access of the left common femoral artery and selective left common femoral artery angiogram INDICATION: Anterior STEMI COMPLICATION: None APPROACH: Left common femoral artery LEVEL OF SEDATION: Moderate with the sedation time off 46 minutes PROCEDURE DESCRIPTION: After obtaining informed consent the patient was brought to the cardiac [employer] Architect. The left common femoral artery was cannulated using micropuncture technique under ultrasound guidance a micropuncture wire passed easily then I placed a 6 [place] 11 cm sheath at the left common femoral artery. Subsequently I did selective left coronary angiogram using JL 4 guiding catheter. At that point I intervene on the LAD. Then after that I did selective right coronary angiogram using JR4 catheter. Left heart catheterization was performed using a pigtail catheter. Selective left common femoral artery angiogram was performed by the end. Regarding the intervention of the LAD anticoagulation was initiated using heparin with continuous ACT monitoring. Subsequently I did engage the left main using JL 4 guiding catheter. I did wired the LAD using a run-through wire. I did balloon angioplasty of the LAD using 3 mm balloon. After that there was a thrombus distal to the lesion in the very distal LAD with I did aspiration thrombectomy using manual aspiration and the clot was taken out. After that IVUS was performed and showed a diameter around 4 mm to 4.5 mm. I did deploy a 4.0 x 23 mm stent which was postdilated using 4.5 mm NC balloon after IVUS was performed. Final IVUS and angiogram performed and showed good results and the procedure was completed with no complication. SELECTIVE CORONARY ANGIOGRAM: The right coronary artery: Large caliber vessel and a dominant vessel with mild disease Left main: Is angiographically normal The left circumflex: Large caliber vessel with patent stent in the mid left circumflex. The ostial left circumflex has a lesion appears to be in the range of 50% The left anterior descending artery: Large caliber vessel and appeared to be occluded acutely in the midportion. I did PCI as described above HEMODYNAMICS: The LVEDP was 14 mmHg with no significant gradient across aortic valve CONCLUSION: 1. Acute total occlusion of the mid LAD. I did perform successful PCI as described above 2. Patent stent in the mid left circumflex coronary artery with ostial lesion appears to be in the range of 50% 3. Normal left-sided filling pressure POSTPROCEDURE MANAGEMENT: 1. Dual antiplatelet therapy using aspirin and Plavix for 12 month 2. Aggressive cholesterol control 3. Follow-up with the patient
[2024-12-03 05:25] LABS: Glucose,Whole Blood 124 mg/dL (70-110)
[2024-12-03] MEDS: SODIUM CHLORIDE 0.9% 1,000 ML in EMPTY BAG 1 BAG IV SCH (05:45)
[2024-12-03] MEDS: CALCIUM ACETATE 667 MG TAB PO SCH (06:55)
[2024-12-03] MEDS: LEVOTHYROXINE 125 MCG TAB PO SCH (06:55)
[2024-12-03] MEDS: amLODIPine 10 MG TAB PO SCH (08:58)
[2024-12-03] MEDS: ASPIRIN 81 MG PO SCH (08:58)
[2024-12-03] MEDS: CLOPIDOGREL 75 MG TAB PO SCH (09:00)
[2024-12-03] MEDS: hydroCHLOROthiazide 25 MG TAB PO SCH (09:00)
[2024-12-03] MEDS: GABAPENTIN 300 MG CAP PO SCH (09:00)
[2024-12-03] MEDS: SPIRONOLACTONE 25 MG TAB PO SCH (09:01)
[2024-12-03] MEDS: LOSARTAN 50 MG TAB PO SCH (09:01)
[2024-12-03] MEDS: POTASSIUM CITRATE 10 MEQ TABLET.ER PO SCH (09:01)
[2024-12-03] MEDS: AMIODARONE 100 MG TAB PO SCH (09:01)
[2024-12-03] MEDS: MAGNESIUM OXIDE 400 MG TAB PO SCH (09:01)
[2024-12-03] MEDS: MULTIVITAMINS, THERA 1 EACH TAB PO SCH (09:02)
--- NOTE | 2024-12-03 12:08 | CA ---
Transthoracic Echo Report Name: Ralph Agarwal Age: 59 Gender: M : 1965 Exam Date: 12/03/2024 07:40 Exam Location: [place] [facility] Ht (in): 71 Wt (lb): 180 Ordering Physician: Gael Deutsch MD ([id number]) Attending/Referring Phys: Waiter And Cashier Norma Hastings RDCS Procedure CPT: Indications: stemi Cardiac Hx: Technical Quality: Poor Contrast 1: Definity Total Dose (mL): 2 Contrast 2: Total Dose (mL): MEASUREMENTS (Male / Female) Normal Values 2D ECHO LV Diastolic Diameter PLAX 3.6 cm 4.2 - 5.9 / 3.9 - 5.3 cm LV Systolic Diameter PLAX 2.8 cm IVS Diastolic Thickness 1.5 cm 0.6 - 1.0 / 0.6 - 0.9 cm LVPW Diastolic Thickness 1.6 cm 0.6 - 1.0 / 0.6 - 0.9 cm LV Relative Wall Thickness 0.9 LVOT Diameter 2.1 cm LA Systolic Diameter LX 3.0 cm 3.0 - 4.0 / 2.7 - 3.8 cm LV Diastolic Volume MOD BP 109.0 cm??? 67 - 155 / 56 - 104 cm??? LV Systolic Volume MOD BP 61.4 cm??? 22 - 58 / 19 - 49 cm??? LV Ejection Fraction MOD BP 43.7 % >= 55 % LV Cardiac Index MOD BP 1922.5 cm???/min???m??? LV Diastolic Volume MOD 4C 125.5 cm??? LV Systolic Volume MOD 4C 68.7 cm??? LV Ejection Fraction MOD 4C 45.3 % LV Cardiac Index MOD 4C 2294.5 cm???/min???m??? LV Diastolic Length 4C 8.4 cm LV Systolic Length 4C 7.4 cm LV Diastolic Volume MOD 2C 89.6 cm??? LV Systolic Volume MOD 2C 55.4 cm??? LV Ejection Fraction MOD 2C 38.2 % LV Cardiac Index MOD 2C 1380.8 cm???/min???m??? LV Diastolic Length 2C 8.0 cm LV Systolic Length 2C 7.5 cm DOPPLER AV Peak Velocity 87.8 cm/s AV Peak Gradient 3.1 mmHg LVOT Peak Velocity 87.0 cm/s LVOT Peak Gradient 3.0 mmHg AV Area Cont Eq pk 3.3 cm??? MV Area PHT 4.5 cm??? Mitral E Point Velocity 48.1 cm/s Mitral A Point Velocity 84.8 cm/s Mitral E to A Ratio 0.6 MV Deceleration Time 169.5 ms FINDINGS Left Ventricle Left ventricular ejection fraction is estimated at 40-45 %. Apical akinesis with severe hypokinesis in the distal anterolateral wall.Moderately increased left ventricular wall thickness. Left ventricular cavity size normal. Right Ventricle Right ventricle not well visualized. Unable to estimate the right ventricular systolic pressure. Right Atrium Normal right atrial size. No right atrial thrombus or mass seen. Left Atrium Normal left atrial size. No left atrial thrombus or mass present. Mitral Valve Structurally normal mitral valve. Trace mitral regurgitation. No mitral stenosis. Aortic Valve Aortic valve not well visualized. No aortic stenosis. No aortic regurgitation. Tricuspid Valve Tricuspid valve not well visualized. No tricuspid regurgitation. Pulmonic Valve Pulmonic valve not well visualized. No pulmonic regurgitation. Pericardium No pericardial effusion. Aorta Aortic root and proximal ascending aorta not well visualized. CONCLUSIONS Technically difficult study. Definity ECHO contrast used for improved visualization of the endocardial borders (inadequate visualization of two or more contiguous segments). Moderately impaired left ventricular systolic function with segmental wall motion abnormality consistent with CAD Very limited Doppler study Previewed by: Dr. Krystle Cameron MD (Electronically Signed) Final Date: 03 December 2024 12:07
[2024-12-03 14:04] VITALS: BMI 24.4
[2024-12-03] MEDS: MAG HYDROX/AL HYDROX/SIMETH 30 ML CUP PO PRN (17:04)
[2024-12-03] MEDS: ATORVASTATIN 80 MG TAB PO SCH (21:27)
--- NOTE | 2024-12-04 02:51 | HP ---
HISTORY AND PHYSICAL CHIEF COMPLAINT: Chest pain. HISTORY OF PRESENT ILLNESS: This is another admission for this 59-year-old fairly noncompliant gentleman, who has a longstanding history of severe atherosclerotic problems with peripheral vascular disease. He has been able to stay out of trouble for the last few years despite not taking good care of himself, continuing to smoke and not take care of his hypertension. He was sitting in a chair when he developed severe anterior chest pain, which relieved slightly with nitroglycerin and then he called the ambulance. He is taken to the cardiac catheterization technologist for stenting of the LAD. REVIEW OF SYSTEMS: At the present time, he feels fine. Past medical history, family history and personal and social histories reveal that he is allergic to penicillin. When he takes his medications, he has been on: 1. Losartan. 2. Atorvastatin. 3. Aspirin. 4. Clopidogrel. 5. Insulin. 6. Cilostazol. He continues to smoke heavily. PHYSICAL EXAMINATION: VITAL SIGNS: At the present time, his vital signs are normal. HEAD, EARS, EYES, NOSE, MOUTH AND THROAT: Normal. CHEST: Clear. CARDIAC EXAM: Reveals it sounds like sinus rhythm. ABDOMEN: Soft and nontender and a protuberant with a ventral hernia. EXTREMITIES: Show pulses are poor. IMPRESSION: 1. Acute anteroseptal ST-segment elevated myocardial infarction. 2. Atherosclerotic cardiovascular disease. 3. Pulmonary veno-occlusive disease. 4. Chronic obstructive pulmonary disease. PLAN: 1. Bed rest. 2. ICU management. 3. Post cath stent care by Cardiology. MMOLESYA / CARMINEN: [id number] /
[2024-12-04 03:46] LABS: Basophils # (A) 0.06 10*3/uL (0.00-0.10); Basophils % (A) 0.6 %; Eosinophils # (A) 0.29 10*3/uL (0.04-0.35); Eosinophils % (A) 3.1 %; HCT 40.0 % (39.6-50.0); HGB 13.3 g/dL (13.0-17.0); Lymphocytes # (A) 1.30 10*3/uL (0.90-5.00); Lymphocytes % (A) 13.9 %; MCH 28.5 pg (27.0-32.0); MCHC 33.3 g/dL (32.0-37.0); MCV 85.8 fL (80.0-97.0); Monocytes # (A) 1.12 10*3/uL (0.20-1.00); Monocytes % (A) 12.0 %; Neutrophils # (A) 6.54 10*3/uL (1.80-7.70); Neutrophils % (A) 70.0 %; Platelet Count 195 10*3/uL (140-440); RBC 4.66 10*6/uL (4.40-5.60); RDW 14.0 % (11.5-14.5); WBC 9.35 10*3/uL (4.50-10.00)
[2024-12-04 04:17] LABS: African American GFR (CKD) 43 (>60 ml/min/1.73 sqM); Anion Gap 7 mmol/L; Blood Urea Nitrogen 22 mg/dL (9-20); Calcium 8.7 mg/dL (8.4-10.2); Carbon Dioxide 24 mmol/L (22-30); Chloride 102 mmol/L (98-107); Glucose 93 mg/dL (74-99); Non-African American GFR(CKD) 37 (>60 ml/min/1.73 sqM); Potassium 4.0 mmol/L (3.5-5.1); Sodium 133 mmol/L (137-145)
--- NOTE | 2024-12-04 09:15 | P.PN ---
Subjective Progress Note Date: 12/04/24 Principal diagnosis: HISTORY OF PRESENT ILLNESS: Patient started experiencing discomfort in the chest associated with chills and not feeling well since about 4:30 PM last afternoon. He took nitroglycerin with partial relief. The pain never really went away but there was partial relief with nitroglycerin. However at around midnight the pain once again suddenly became very severe and he called EMS at 2:30 AM. I received a STEMI call after 3 am and spoke to the ER physician Patient presented with an ST elevation RI anterior leads Past history of coronary artery disease hypertension and severe peripheral vascular disease Patient continues to smoke at least half to 1 pack of cigarettes a day Past history of coronary artery disease hypertension Stenting of the proximal left circumflex in September 2023 for an acute non-ST elevation RI No pulses in the right or left radial artery, no pulses in the right common femoral artery as well At that time very mild disease in the left main and LAD REVIEW OF LABS, ECG & MEDICAL DATA His medications have not been reconciled yet Elevated white count of 13.6 thousand hemoglobin 14.9 PROGRESS NOTE: 12/04/24: Patient seen and examined at bedside today. Pulse 59 bpm, BP 101/62. Patient is currently on room air. WBC 9.35, hemoglobin 13.3, sodium 133, creatinine 1.91 Echocardiogram shows EF 40 to 45%, moderately impaired left ventricular systolic function with segmental wall motion abnormality consistent with CAD REVIEW OF SYSTEMS: Pertinent positives and negatives as discussed in HPI, a complete review of systems was performed and all other systems are negative. EXAMINATION: GENERAL: nontoxic, no distress, appears at stated age LUNGS: Breath sounds reduced bilaterally with bilateral rhonchi HEART: Heart sounds distant no murmurs EXTREMITIES: Dusky right upper extremity and hand with poorly palpable radial pulse on the right side. Poorly palpable right femoral pulse. Atrophic changes lower extremities as well as in upper extremities consistent with severe peripheral vascular disease ABDOMEN: Soft. Nondistended. Nontender. NEUROLOGIC: Awake and alert. Oriented x 3. ASSESSMENT: Anterior wall RI ST elevation, Acute total occlusion of the mid LAD S/p PCI Delayed presentation at least 10 to 12 hours after onset of chest discomfort yesterday Known coronary artery disease non-Q wave RI last year with stenting to the left circumflex Known severe peripheral vascular disease Hypothyroidism Paroxysmal Atrial fibrillation Hypertension GERD History of CVA/TIA PLAN: Dual antiplatelet therapy using aspirin and Plavix for 12 month Aggressive cholesterol control Continue amiodarone 100 mg p.o. twice daily, amlodipine 10 mg p.o. daily, aspirin 81 mg p.o. daily, atorvastatin 80 mg p.o. at bedtime, carvedilol 12.5 mg p.o. twice daily, cilostazol 100 mg p.o. twice daily, clopidogrel 75 mg p.o. daily, hydrochlorothiazide 12.5 mg p.o. twice daily, losartan 100 mg p.o. daily, spironolactone 12.5 mg p.o. twice daily Patient can be transferred out of the ICU to cardiac stepdown floor. Likely discharge tomorrow afternoon. Dictation was produced using [employer] dictation software. please excuse any grammatical, word or spelling errors. Joe Acosta MD PGY-2 IM I saw and evaluated the patient during the stafford and critical portions of this encounter, and discussed the case in detail with the resident author of this note, I agree with the Assessment and Plan. Objective - Vital Signs Vital signs: Vital Signs Temp 97.7 F 12/04/24 04:00 Pulse 59 L 12/04/24 07:00 Resp 16 12/04/24 07:00 BP 101/62 12/04/24 07:00 Pulse Ox 96 12/04/24 07:00 FiO2 Intake & Output 12/03/24 12/04/24 12/04/24 18:59 06:59 18:59 Intake Total 1675 Output Total 650 0 Balance 1025 0 Weight 81.647 kg 98.2 kg Intake: IV 375 Sodium Chloride 0.9% 1, 375 000 ml In Empty Bag 1 bag @ 75 mls/hr IV .[id number] [facility] Rx#:[id number] Oral 1300 Output: Urine 650 0 Other: Voiding Method Urinal Toilet # Voids 1 1 # Bowel Movements 1 1 ABP, PAP, CO, CI - Last Documented Arterial Blood Pressure 108/68 - Labs CBC & Chem 7: 12/04/24 02:59 12/04/24 02:59 Labs: Abnormal Lab Results - Last 24 Hours (Table) 12/04/24 12/04/24 Range/Units 02:59 02:59 Monocytes # 1.12 H (0.20-1.00) 10*3/uL Sodium 133 L (137-145) mmol/L BUN 22 H (9-20) mg/dL Creatinine 1.91 H (0.66-1.25) mg/dL
--- NOTE | 2024-12-05 01:38 | PN ---
PROGRESS NOTE DATE OF SERVICE: 12/04/2024 CHIEF COMPLAINT: Status post acute IL. HISTORY OF PRESENT ILLNESS: This gentleman is fairly stable and he has had no significant problems including pain. PHYSICAL EXAMINATION: CHEST: Clear. CARDIAC: Normal. ABDOMEN: Unchanged with his ventral hernia. IMPRESSION: 1. Acute anterior ST elevation myocardial infarction. 2. Atherosclerotic cardiovascular disease. 3. Pulmonary veno-occlusive disease. 4. Chronic obstructive pulmonary disease. PLAN: Progressive activity, he probably will be able to be moved soon. MMODL / IJN: [id number] /
[2024-12-05 09:04] LABS: African American GFR (CKD) 51 (>60 ml/min/1.73 sqM); Anion Gap 13 mmol/L; Blood Urea Nitrogen 25 mg/dL (9-20); Calcium 9.1 mg/dL (8.4-10.2); Carbon Dioxide 23 mmol/L (22-30); Chloride 102 mmol/L (98-107); Glucose 130 mg/dL (74-99); Non-African American GFR(CKD) 44 (>60 ml/min/1.73 sqM); Potassium 3.7 mmol/L (3.5-5.1); Sodium 138 mmol/L (137-145)
--- NOTE | 2024-12-05 09:19 | P.PN ---
Subjective Progress Note Date: 12/05/24 Principal diagnosis: HISTORY OF PRESENT ILLNESS: Patient started experiencing discomfort in the chest associated with chills and not feeling well since about 4:30 PM last afternoon. He took nitroglycerin with partial relief. The pain never really went away but there was partial relief with nitroglycerin. However at around midnight the pain once again suddenly became very severe and he called EMS at 2:30 AM. I received a STEMI call after 3 am and spoke to the ER physician Patient presented with an ST elevation CA anterior leads Past history of coronary artery disease hypertension and severe peripheral vascular disease Patient continues to smoke at least half to 1 pack of cigarettes a day Past history of coronary artery disease hypertension Stenting of the proximal left circumflex in September 2023 for an acute non-ST elevation CA No pulses in the right or left radial artery, no pulses in the right common femoral artery as well At that time very mild disease in the left main and LAD REVIEW OF LABS, ECG & MEDICAL DATA His medications have not been reconciled yet Elevated white count of 13.6 thousand hemoglobin 14.9 PROGRESS NOTE: 12/04/24: Patient seen and examined at bedside today. Pulse 59 bpm, BP 101/62. Patient is currently on room air. WBC 9.35, hemoglobin 13.3, sodium 133, creatinine 1.91 Echocardiogram shows EF 40 to 45%, moderately impaired left ventricular systolic function with segmental wall motion abnormality consistent with CAD 12/05/24: Patient seen and examined at bedside today. He is doing better and denies any new complaints. creatinine 1.65 REVIEW OF SYSTEMS: Pertinent positives and negatives as discussed in HPI, a complete review of systems was performed and all other systems are negative. EXAMINATION: GENERAL: nontoxic, no distress, appears at stated age LUNGS: Breath sounds reduced bilaterally with bilateral rhonchi HEART: Heart sounds distant no murmurs EXTREMITIES: Dusky right upper extremity and hand with poorly palpable radial pulse on the right side. Poorly palpable right femoral pulse. Atrophic changes lower extremities as well as in upper extremities consistent with severe peripheral vascular disease ABDOMEN: Soft. Nondistended. Nontender. NEUROLOGIC: Awake and alert. Oriented x 3. ASSESSMENT: Anterior wall CA ST elevation, Acute total occlusion of the mid LAD S/p PCI MY on CKD, baseline creatinine 1.7, likely contrast induced nephropathy post PCI. Improving Delayed presentation at least 10 to 12 hours after onset of chest discomfort yesterday Known coronary artery disease non-Q wave CA last year with stenting to the left circumflex Known severe peripheral vascular disease Hypothyroidism Paroxysmal Atrial fibrillation Hypertension GERD History of CVA/TIA PLAN: Dual antiplatelet therapy using aspirin and Plavix for 12 month Aggressive cholesterol control Continue amiodarone 100 mg p.o. twice daily, amlodipine 10 mg p.o. daily, aspi rin 81 mg p.o. daily, atorvastatin 80 mg p.o. at bedtime, carvedilol 12.5 mg p.o. twice daily, cilostazol 100 mg p.o. twice daily, clopidogrel 75 mg p.o. daily, hydrochlorothiazide 12.5 mg p.o. twice daily, losartan 100 mg p.o. daily, spironolactone 12.5 mg p.o. twice daily Rechecked BMP today, creatinine is improving Patient is optimized for discharge from cardiology standpoint. Patient did not t olerate Coumadin well before, and has been off Coumadin for some time. Consider Coumadin/Eliquis on outpatient basis. Follow up outpatient with Dr. Deutsch in 1 week. Dictation was produced using [employer] dictation software. please excuse any grammatical, word or spelling errors. Joe Acosta MD PGY-2 IM I saw and evaluated the patient during the stafford and critical portions of this encounter, and discussed the case in detail with the resident author of this note, I agree with the Assessment and Plan. Objective - Vital Signs Vital signs: Vital Signs Temp 98.2 F 12/05/24 04:00 Pulse 78 12/05/24 04:00 Resp 19 12/05/24 04:00 BP 93/57 12/05/24 04:00 Pulse Ox 95 12/05/24 04:00 FiO2 Intake & Output 12/04/24 12/05/24 12/05/24 18:59 06:59 18:59 Weight 97 kg Other: Voiding Method Toilet Toilet # Voids 1 2 ABP, PAP, CO, CI - Last Documented Arterial Blood Pressure 108/68 - Labs CBC & Chem 7: 12/04/24 02:59 12/05/24 08:15
[2024-12-05 10:22] VITALS: TEMP 97.9
[2024-12-05 12:02] VITALS: BP 98/61; PULSE 73; RESP 18
[2024-12-05] MEDS ORDERED: WARFARIN 7.5 MG TAB PO ONE (18:00)
[2024-12-06] MEDS ORDERED: WARFARIN 3 MG TAB PO SCH (09:00)
--- NOTE | 2024-12-06 12:06 | DS ---
DISCHARGE SUMMARY CHIEF COMPLAINT: Chest pain. HISTORY OF PRESENT ILLNESS AND PHYSICAL EXAM: Details of this man's history and physical can be found in the initial workup. LABORATORY STUDIES: While he is in the hospital he had laboratory studies, details of which can be found in the laboratory section of his chart. COURSE IN THE HOSPITAL: After admission, he was taken to the laborer petroleum refinery, and underwent stenting for his myocardial infarction. Postoperatively, he did well. He had no problems with heart failure, arrhythmias, chest pain, and was stabilized and discharged on the . He will follow up in the office as well as with Cardiology. IMPRESSION: 1. Acute anterior myocardial infarction. 2. Coronary artery disease. 3. Atherosclerotic cardiovascular disease. 4. Pulmonary veno-occlusive disease. 5. Chronic obstructive pulmonary disease. 6. Nicotine abuse. 7. Noncompliant patient. OPERATIONS: Cardiac cath with stenting. CONSULTATIONS: Cardiology. EASTON / JOSE: [id number] /
--- NOTE | 2024-12-08 18:44 | CDI ---
Documentation Clarification Form Date: 12/08/2024 06:18:43 PM From: Susan Quezada Phone: Admit Date: 12/03/2024 03:21:00 AM Patient Name: Ralph Agarwal Visit Number: [id number] Discharge Date: 12/05/2024 12:26:00 PM ATTENTION: The Clinical Documentation Specialists (CDI) and [facility] Coding Staff appreciate your assistance in clarifying documentation. Please respond to the clarification below the line at the bottom and electronically sign. The CDI & [facility] Coding staff will review the response and follow-up if needed. Please note: Queries are made part of the Legal Health Record. If you have any questions, please contact the author of this message via ITS. Doctor/Provider: Dao Mcgarry Unspecified CKD is documented per Progress Note 12/05. Additional clarification regarding the stage of CKD is requested. 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, AKIonCKD,likelycontrast induced, CAD sp CABG/stent, Hx MN, PVD, hypothyroidism, PAF, HTN, GERD, smoker, Hx CVA/TIA, noncompliance Baseline creatinine 1.7 Clinical Indicators: BUN: 12/03 20 12/04 22 12/05 25 CR: 12/03 1.25 12/04 1.91 12/05 1.65 GFR: 12/03 62/72 12/04 37/43 12/05 44/51 Treatment: monitored Please clarify the stage of the CKD, if known: [ ] CKD Stage 2 [ ] CKD Stage 3a [ ] CKD Stage 3b [ ] Other, please specify [ ] Unable to determine Reference: [employer] Stage 1 eGFR = 90 and kidney damage for =3 months Stage 2 eGFR 60-89 and kidney damage for =3 months Stage 3a eGFR 45-59 and kidney damage for =3 months Stage 3b eGFR 30-44 and kidney damage for =3 months Stage 4 eGFR 15-29 r and kidney damage for =3 months Stage 5 eGFR <15 and kidney damage for =3 months (Template last revised: May 2023) MTDD
[2024-12-11] MEDS ORDERED: ERGOCALCIFEROL 1,250 MCG (50,000 IU) CAPSULE PO SCH (09:00)
== END 2024-12-05 12:26 | disposition home or self-care (01) | DRG 322 ==
LOC: EC 03:12 → 2SICU 03:21 → 3SCARD 12-04 21:48
PROVIDERS: ADMIT Family Medicine; ATTEND Family Medicine
PROC: B2111ZZ Fluoroscopy of Multiple Coronary Arteries using Low Osmolar Contrast (ICD-10-PCS; 2024-12-03)
PROC: B240ZZ3 Ultrasonography of Single Coronary Artery, Intravascular (ICD-10-PCS; 2024-12-03)
PROC: 027034Z Dilation of Coronary Artery, One Artery with Drug-eluting Intraluminal Device, Percutaneous Approach (ICD-10-PCS; principal; 2024-12-03 03:46)
PROC: 02C03ZZ Extirpation of Matter from Coronary Artery, One Artery, Percutaneous Approach (ICD-10-PCS; 2024-12-03 03:46)
PROC: 4A023N7 Measurement of Cardiac Sampling and Pressure, Left Heart, Percutaneous Approach (ICD-10-PCS; 2024-12-03 03:46)
DX: I21.09 ST elevation (STEMI) myocardial infarction involving other coronary artery of anterior wall (principal); N17.8 Other acute kidney failure; J44.9 Chronic obstructive pulmonary disease, unspecified; I28.9 Disease of pulmonary vessels, unspecified; I73.9 Peripheral vascular disease, unspecified; E03.9 Hypothyroidism, unspecified; I10 Essential (primary) hypertension; I48.0 Paroxysmal atrial fibrillation; F17.210 Nicotine dependence, cigarettes, uncomplicated; I25.10 Atherosclerotic heart disease of native coronary artery without angina pectoris; I25.82 Chronic total occlusion of coronary artery; Z91.199 Patient's noncompliance with other medical treatment and regimen due to unspecified reason; N14.11 Contrast-induced nephropathy; T50.8X5A Adverse effect of diagnostic agents, initial encounter; K21.9 Gastro-esophageal reflux disease without esophagitis; Z79.01 Long term (current) use of anticoagulants; Z79.02 Long term (current) use of antithrombotics/antiplatelets; Z95.820 Peripheral vascular angioplasty status with implants and grafts; Z95.828 Presence of other vascular implants and grafts; I25.2 Old myocardial infarction; Z95.1 Presence of aortocoronary bypass graft; Z86.73 Personal history of transient ischemic attack (TIA), and cerebral infarction without residual deficits; Z95.5 Presence of coronary angioplasty implant and graft; Z79.82 Long term (current) use of aspirin; Z79.890 Hormone replacement therapy; Z79.899 Other long term (current) drug therapy
CPT/HCPCS: 36415; 71045; 80048; 80053; 83735; 84484; 85025; 85610; 85730; 92978; 93005; 93306; 93458; 96374; 96375; 99291